=== PATIENT | female | born 1945 | race Caucasian/White ===

== ENCOUNTER → 2017-09-16 11:02 | Outpatient (CLI) | payer MEDICARE, SELFPAY ==
--- NOTE | 2017-09-16 11:13 | MRI_ITS ---
STUDY: MRI BRAIN WITH AND WITHOUT CONTRAST REASON FOR EXAM: Female, 71 years old. meningioma, F/U, NO SYMPTOMS. TECHNIQUE: Standardized multiplanar fat and water weighted pulse sequences were obtained. 7 ml of Gadavist contrast material was administered intravenously for the contrast portion of the examination. COMPARISON: November 04, 2015 FINDINGS: Normal size of the ventricles and extra-axial spaces for the patient's age. There are a limited number of small white matter hyperintensities, distributed throughout the deep white matter tracts of the cerebral hemispheres, consistent with mild chronic white matter ischemic changes. Normal bilateral basal ganglia. Normal thalami. There is no extra-axial fluid accumulation. Normal flow voids within the major intracranial circulation suggesting patency by spin echo criteria. Normal venous enhancement. Again noted is a 1 cm left frontal extra-axial likely meningioma without change since the prior examination. There is no underlying edema Normal sella turcica, pituitary gland, infundibular stalk, optic chiasm and hypothalamus. Normal tectal plate and pineal gland. Normal midbrain, tommie and medulla. Normal cerebellum. Normal basal cisterns. Normal bilateral temporal bones. Normal bilateral internal auditory canals. No demonstrated orbital abnormality, within the constraints of a routine brain study. Normal visualized paranasal sinuses. Normal calvarium and skull base. Normal visualized soft tissue structures. Normal visualized upper cervical spine. MRI/Brain W/WO Contrast IMPRESSION: Stable left frontal meningioma. Electronically Signed: Gabriela Rhodes MD at 10:10 EST Tel , Service support ,
== END ==
PROVIDERS: Family Provider Internal Medicine; PCP Internal Medicine; Visit Provider Internal Medicine
DX: D32.9 Benign neoplasm of meninges, unspecified (principal)
CPT/HCPCS: 70553; A9585

== ENCOUNTER → 2017-09-23 08:17 | Outpatient (CLI) | payer MEDICARE, SELFPAY ==
[2017-09-23 10:03] LABS: ALB/GLOB Ratio 1.2 RATIO (0.9-2.4); AST(SGOT) 14 U/L (15-37); Alanine Aminotransfer ALT/SGPT 26 U/L (13-56); Albumin, Serum 3.9 g/dL (3.2-5.0); Alkaline Phosphatase 55 U/L (45-117); BUN 14 mg/dL (7-18); BUN/Creat Ratio 22.2 RATIO (10-20); Calcium,Total 9.6 mg/dL (8.5-10.1); Chloride 101 mmol/L (98-107); Creatinine, Serum 0.63 mg/dL (0.55-1.02); EST Glomerular Filtration Rate 99 mL/min (>60); Est Glom Filt Rate - Afr Amer 120 mL/min (>60); Globulin 3.3 g/dL (2.2-4.2); Glucose 93 mg/dL (74-106); Magnesium 2.4 mg/dL (1.6-2.6); Potassium 3.8 mmol/L (3.5-5.1); Protein, Total 7.2 g/dL (6.4-8.2); Sodium Level 139 mmol/L (136-145)
[2017-09-23 10:04] LABS: Anion Gap 6 (5-15)
[2017-09-23 10:10] LABS: Vitamin D,25 Hydroxy 46.2 ng/mL (19.95-100.01)
== END ==
PROVIDERS: Family Provider Internal Medicine; PCP Internal Medicine; Visit Provider Internal Medicine Endocrinology, Diabetes & Metabolism
DX: E55.9 Vitamin D deficiency, unspecified (principal); E83.42 Hypomagnesemia; N20.0 Calculus of kidney; M81.0 Age-related osteoporosis without current pathological fracture
CPT/HCPCS: 36415; 80053; 82306; 83735

== ENCOUNTER → 2017-09-26 08:04 | Outpatient (CLI) | payer MEDICARE, SELFPAY ==
[2017-09-26 10:05] LABS: 24HR. Urine Creatinine 0.98 g/24 HR (0.70-1.90)
== END ==
PROVIDERS: Family Provider Internal Medicine; PCP Internal Medicine; Visit Provider Internal Medicine Endocrinology, Diabetes & Metabolism
DX: N20.0 Calculus of kidney (principal); E55.9 Vitamin D deficiency, unspecified
CPT/HCPCS: 82570

== ENCOUNTER → 2017-10-07 08:53 | Outpatient (CLI) | payer MEDICARE, SELFPAY ==
--- NOTE | 2017-10-07 08:54 | HPBI_ITS ---
MAMMOGRAPHY - BILATERAL SCREENING REASON FOR EXAM: Female, 71 years old. Routine annual screening examination. PERTINENT HISTORY: Daughter with breast cancer. Remote bilateral excisional breast biopsies. TECHNIQUE: Digital bilateral breast boyd (3D mammographic acquisition) in the CC and MLO projections. 2-D mediolateral oblique (MLO) and craniocaudad (CC) views of both breasts were obtained. CAD: Full Field Digital Mammography with Computer Added Detection was performed. COMPARISON: Comparison is made with prior study dated August 07, 2016 and October 27, 2014. FINDINGS: Breast Composition: The breasts are heterogeneously dense, which may obscure small masses. There is a 5.3 mm x 6.6 mm well-defined nodule in the upper outer aspect of the left breast. This may represent a small cyst. Correlation with ultrasound is recommended. Stable bilateral benign-appearing axillary lymph nodes. No other significant abnormalities are identified. HPBI/SCREENING MAMM (CAD), BILAT IMPRESSION: Subcentimeter well-defined nodular density in the upper outer aspect of the left breast as described. Correlation with ultrasound is recommended. ASSESSMENT CATEGORY: BIRADS Category 2: Benign. A letter regarding these results will be sent to the patient by the facility within 30 days. Approximately 10% of breast cancers are not detected by mammography. A normal mammogram should not delay biopsy of a clinically suspicious abnormality. [id number] Electronically Signed: Corey Rodriguez MD at 10:32 EST Tel [phone], Service support ,
== END ==
PROVIDERS: Family Provider Internal Medicine; PCP Internal Medicine; Visit Provider Internal Medicine
DX: Z12.31 Encounter for screening mammogram for malignant neoplasm of breast (principal)
CPT/HCPCS: 77063; 77067

== ENCOUNTER → 2017-10-10 10:52 | Outpatient (CLI) | payer MEDICARE, SELFPAY ==
--- NOTE | 2017-10-10 10:59 | US_ITS ---
STUDY: ULTRASOUND BREAST - LEFT REASON FOR EXAM: Female, 71 years old. Abnormal screening mammogram. TECHNIQUE: Axial and longitudinal images of the LEFT breast were performed with a high resolution ultrasound transducer. COMPARISON: Comparison is made with prior mammogram dated October 07, 2017. FINDINGS: LEFT Breast: There is a 5 mm x 3 mm x 3 mm hypoechoic nodule at the 2:00 position breast at 5 cm from nipple. This is not a typical cyst. A biopsy is recommended for further evaluation. US/Breast Limited Unilateral IMPRESSION: 5 mm x 3 mm x 3 mm hypoechoic nodule at the 2:00 region of the breast at 5 cm from the nipple. A biopsy recommended for further evaluation. ASSESSMENT CATEGORY: BIRADS Category 4: Suspicious - Biopsy Should Be Considered. A letter regarding these results will be sent to the patient by the facility within 30 days. Electronically Signed: Corey Rodriguez MD at 13:47 EST Tel [phone], Service support ,
== END ==
PROVIDERS: Family Provider Internal Medicine; PCP Internal Medicine; Visit Provider Internal Medicine
DX: R92.8 Other abnormal and inconclusive findings on diagnostic imaging of breast (principal)
CPT/HCPCS: 76642

== ENCOUNTER 2017-11-18 08:30 | Outpatient (RCR) | payer MEDICARE, SELFPAY ==
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
--- NOTE | 2017-11-18 09:40 | HP.PTDCSUM_ITS ---
HP - PT D/C Summary It has been my pleasure to treat JS MEEKS under orders from Quirino Bueno, , for the diagnosis of L RTC IMPINGEMENT SYNDROME AND PAIN. for a total of 10 visit(s). Discharge Date: Please see the following information for a summary of their discharge status. - Subjective Subjective: NO BREAST CANCER HAS BEEN FOUND AT THIS TIME. PATIENT REPORTS SHE DOES STILL HAVE ACHING IN HER SHOULDER RANGING 0-6 OR 7 /10. SHE REPORTS SHE NOTICES THE PAIN A LOT IN THE MORNINGS. IT STILL GRABS WITH PRETTY SEVERE PAIN UP TO ABOUT 8/10 LIKE SHE DID BEFORE STARTING PT BUT IT DOESN'T GRAB OFTEN. SOMETIMES SHE STILL HEARS IT CLICKING. STATES SHE HAS NOT BEEN NOTICING LEFT FOREARM OR THUMB PAIN. - Pain Left Shoulder Pain Intensity (Out of 10): 0 - Overall Improvement % Improvement: 10 - Objective Objective/Function: NO SIGNIFICANT CHANGES. RECOMMEND PHYSICIAN FOLLOW UP. PATIENT MAY BENEFIT FROM LEFT UE MRI AND R/O OF CERVICAL. UPON EXAM, MMT - LUE: SHOULDER FLEX 3-/5, ABD 2+/5, IR 3-/5, ER 3/5, ELBOW 5/5. MID RANGE SEATED LEFT SHOULDER IR 5/5 AND ER 4-/5. NO INCREASED PAIN WITH MMT OF LEFT UE IN SITTING WITH ELBOW AT SIDE. Sensory deficit: NO. PAULA UE'S INTACT AND SYMMETRICAL INCLUDING LEFT THUMB. ROM deficit: AROM LEFT SHOULDER FLEX IN SITTING 140 DEG, ABD 170 DEG. SUPINE LEFT SHOULDER FLEX 155 DEG PASSIVELY. ABD 100 DEG WITH PAIN DURING MVMT AND AT THE END OF THE AVAILABLE RANGE. ER IN SUPINE WITH 80 DEG ABD IS 85 DEG, IR 60 DEG. Reflexes: 2/3 PAULA UE'S. Cervical Mvmt Loss: Flex: NIL. Pro: NIL. Ext: LEX. Ret: LEX. RSB: MOD. LSB: MOD. R Rot: MOD. L Rot: MOD. PATIENT DENIES LEFT UE INCREASED PAIN WITH CERVICAL ROM ALL PLANES. Postural strength: FAIR - Goals Goal 1:: DECREASE C/O LEFT SHOULDER/UPPER ARM PAIN Goal Progress: Not Progressing Goal 2:: IMPROVE REACHING, LIFTING, HOUSEWORK, YARD WORK, ADL'S (EX: DOING HAIR ), AND RECREATIONAL FUNCTION. Goal Progress: Not Progressing Goal 3:: INSTRUCT IN PROPHYLAXIS/INDEP HEP Goal Progress: Not Progressing - Plan Plan: D/C DUE TO LACK OF ENOUGH PROGRESS. - D/C Information If there are questions or concerns regarding this patient's physical therapy, please feel free to call me at [phone]. Thank you for the referral of this patient. Sincerely, Vesna Albert
== END 2017-11-18 19:00 | disposition home or self-care (01) ==
LOC: PT 08:30
PROVIDERS: Family Provider Internal Medicine; PCP Internal Medicine; Visit Provider Orthopaedic Surgery Hand Surgery
DX: M75.42 Impingement syndrome of left shoulder (principal); M25.512 Pain in left shoulder
CPT/HCPCS: 97110; 97163; 97530

== ENCOUNTER → 2017-11-18 09:10 | Outpatient (CLI) | payer MEDICARE, SELFPAY ==
[2017-11-18 11:14] LABS: ALB/GLOB Ratio 1.1 RATIO (0.9-2.4); AST(SGOT) 15 U/L (15-37); Alanine Aminotransfer ALT/SGPT 29 U/L (13-56); Alkaline Phosphatase 59 U/L (45-117); Anion Gap 6 (5-15); BUN 15 mg/dL (7-18); BUN/Creat Ratio 22.6 RATIO (10-20); Calcium,Total 9.5 mg/dL (8.5-10.1); Chloride 104 mmol/L (98-107); Creatinine, Serum 0.66 mg/dL (0.55-1.02); EST Glomerular Filtration Rate 93 mL/min (>60); Est Glom Filt Rate - Afr Amer 113 mL/min (>60); Globulin 3.7 g/dL (2.2-4.2); Glucose 94 mg/dL (74-106); Potassium 3.7 mmol/L (3.5-5.1); Protein, Total 7.7 g/dL (6.4-8.2); Sodium Level 141 mmol/L (136-145)
[2017-11-18 11:33] LABS: Vitamin D,25 Hydroxy 71.7 ng/mL (29.95-100.01)
[2017-11-18 11:34] LABS: PTHIN 75.3 pg/mL (18.4-80.1)
== END ==
PROVIDERS: Family Provider Internal Medicine; PCP Internal Medicine; Visit Provider Internal Medicine Endocrinology, Diabetes & Metabolism
DX: M81.0 Age-related osteoporosis without current pathological fracture (principal); E55.9 Vitamin D deficiency, unspecified; E21.1 Secondary hyperparathyroidism, not elsewhere classified; E22.1 Hyperprolactinemia; M75.42 Impingement syndrome of left shoulder; M25.512 Pain in left shoulder
CPT/HCPCS: 36415; 80053; 82306; 83970; 97530

== ENCOUNTER → 2018-04-01 16:25 | Outpatient (CLI) | payer MEDICARE, SELFPAY | PROVIDERS: Visit Provider Nurse Practitioner Adult Health | DX: R82.99 Other abnormal findings in urine (principal) | CPT/HCPCS: 87086; 87088 ==

== ENCOUNTER → 2018-04-29 13:07 | Outpatient (CLI) | payer MEDICARE, SELFPAY ==
--- NOTE | 2018-04-29 13:12 | RAD_ITS ---
STUDY: X-RAY - LEFT CALCANEUS REASON FOR EXAM: Female, 72 years old. (Fasciitis. TECHNIQUE: 2 view(s) of the calcaneus were obtained. COMPARISON: None. FINDINGS: There is demineralization of the osseous structures. There is a plantar calcaneal spur. There is no demonstrated acute fracture. There are questionable faint calcifications in the soft tissues on the plantar aspect of the calcaneus. RAD/Calcaneus min 2 Views IMPRESSION: Plantar calcaneal spur. Electronically Signed: Malachi Qureshi MD at 3:42 EDT Tel , Service support ,
== END ==
PROVIDERS: Family Provider Internal Medicine; PCP Internal Medicine; Visit Provider Internal Medicine
DX: M72.2 Plantar fascial fibromatosis (principal)
CPT/HCPCS: 73650

== ENCOUNTER → 2018-05-27 08:01 | Outpatient (CLI) | payer MEDICARE, SELFPAY ==
[2018-05-27 10:56] LABS: PTHIN 78.1 pg/mL (18.4-80.1); Vitamin D,25 Hydroxy 68.3 ng/mL (29.95-100.01)
[2018-05-27 11:11] LABS: ALB/GLOB Ratio 1.1 RATIO (0.9-2.4); AST(SGOT) 21 U/L (15-37); Alanine Aminotransfer ALT/SGPT 50 U/L (13-56); Albumin, Serum 3.9 g/dL (3.2-5.0); Alkaline Phosphatase 65 U/L (45-117); Anion Gap 7 (5-15); BUN 20 mg/dL (7-18); BUN/Creat Ratio 31.3 RATIO (10-20); Calcium,Total 9.6 mg/dL (8.5-10.1); Chloride 104 mmol/L (98-107); Creatinine, Serum 0.64 mg/dL (0.55-1.02); EST Glomerular Filtration Rate 97 mL/min (>60); Est Glom Filt Rate - Afr Amer 118 mL/min (>60); Globulin 3.6 g/dL (2.2-4.2); Glucose 98 mg/dL (74-106); Potassium 4.1 mmol/L (3.5-5.1); Protein, Total 7.5 g/dL (6.4-8.2); Sodium Level 142 mmol/L (136-145)
== END ==
PROVIDERS: Family Provider Internal Medicine; PCP Internal Medicine; Referring Provider Internal Medicine; Visit Provider Internal Medicine
DX: E04.9 Nontoxic goiter, unspecified (principal); E21.1 Secondary hyperparathyroidism, not elsewhere classified; E55.9 Vitamin D deficiency, unspecified; E83.52 Hypercalcemia
CPT/HCPCS: 36415; 80053; 82306; 83970

== ENCOUNTER → 2018-07-02 09:28 | Outpatient (CLI) | payer MEDICARE, SELFPAY ==
[2017-11-19 09:28] VITALS: BMI 27.8
[2018-07-02 12:39] LABS: BUN 17 mg/dL (7-18); Creatinine, Serum 0.63 mg/dL (0.55-1.02); Glucose 104 mg/dL (74-106)
[2018-07-02 12:40] LABS: ALB/GLOB Ratio 1.2 RATIO (0.9-2.4); AST(SGOT) 17 U/L (15-37); Alanine Aminotransfer ALT/SGPT 35 U/L (13-56); Alkaline Phosphatase 56 U/L (45-117); Anion Gap 5 (5-15); BUN/Creat Ratio 26.8 RATIO (10-20); Calcium,Total 9.7 mg/dL (8.5-10.1); Chloride 103 mmol/L (98-107); EST Glomerular Filtration Rate 98 mL/min (>60); Est Glom Filt Rate - Afr Amer 119 mL/min (>60); Globulin 3.3 g/dL (2.2-4.2); Potassium 3.9 mmol/L (3.5-5.1); Protein, Total 7.3 g/dL (6.4-8.2); Sodium Level 138 mmol/L (136-145)
[2018-07-02 12:42] LABS: Vitamin D,25 Hydroxy 58.4 ng/mL (29.95-100.01)
[2018-07-02 12:49] LABS: PTHIN 67.1 pg/mL (18.4-80.1)
== END ==
PROVIDERS: Family Provider Internal Medicine; PCP Internal Medicine; Referring Provider Internal Medicine Endocrinology, Diabetes & Metabolism; Visit Provider Internal Medicine Endocrinology, Diabetes & Metabolism
DX: E55.9 Vitamin D deficiency, unspecified (principal); E04.9 Nontoxic goiter, unspecified; E21.1 Secondary hyperparathyroidism, not elsewhere classified
CPT/HCPCS: 36415; 80053; 82306; 83970

== ENCOUNTER → 2018-07-28 07:04 | Outpatient (CLI) | payer MEDICARE, SELFPAY ==
[2017-11-19 09:28] VITALS: BMI 27.8
[2018-07-28 07:48] LABS: Anion Gap 6 (5-15); BUN 17 mg/dL (7-18); BUN/Creat Ratio 24.8 RATIO (10-20); Calcium,Total 9.5 mg/dL (8.5-10.1); Chloride 105 mmol/L (98-107); Creatinine, Serum 0.68 mg/dL (0.55-1.02); EST Glomerular Filtration Rate 90 mL/min (>60); Est Glom Filt Rate - Afr Amer 109 mL/min (>60); Glucose 103 mg/dL (74-106); Potassium 3.7 mmol/L (3.5-5.1); Sodium Level 142 mmol/L (136-145)
--- OUTSIDE RECORDS SUMMARY | 2018-10-29 16:47 | XMS RPT_ITS ---
:1945 Author Organization [employer] Address [address] [place] [address] Phone Care Team Providers Name Role Phone Ximena METZ, Quirino Juarez Unavailable Reason for Visit Reason For Visit Description Start Date Follow-up by complaint Preliminary reason for visit data, not yet signed by the author as of left shoulder pain Preliminary reason for visit data, not yet signed by the author as of Chief Complaint Chief Complaint Description Start Date left shoulder pain Preliminary chief complaint data, not yet signed by the author as of Instructions No information available. Plan of Care Type Date Detail Appointment 09:00 AM Quirino Bueno MD, [address] [facility], [place], [address], Pending order MRI left shoulder without contrast Medications Medication Instructions Start Stop Generic Name NDC Provider Date Date COQ10 100 MG 1 capsule daily / COENZYME Q10 16811641312 Marielos CAPS 27 Rothman SHORTHAND TEACHER METHENAMINE 1 tablet daily / METHENAMINE [id number] Marielos MANDELATE 0.5 27 MANDELATE Rothman [employer]TH[employer] TE[employer] GM TABS CITRACAL 1 tablet daily / CALCIUM-PHOSPHORUS 82431170647 Marielos CALCIUM 27 -VITAMIN D Rothman [employer]ORTHAND TEACHER GUMMIES 250-115-250 MG-MG-UNIT CHEW SYMBICORT 2 puffs twice / BUDESONIDE-FORMOTE 87095306347 Marielos 160-4.5 daily 27 ROL FUMARATE Rothman [employer]ORTHAND TEACHER MCG/ACT AERO BRIAN-C TABS 1 tablet daily / BIOFLAVONOID [id number] Marielos (1000mg) 27 PRODUCTS Rothman [employer]ORTHAND TEACHER FISH OIL 1200 1 capsule daily / OMEGA-3 FATTY 10275012887 Marielos MG CAPS 27 ACIDS Rothman [employer]ORTHAND TEACHER DAILY DEFENSE 1 tablet daily / DAILY DEFENSE Marielos 27 Rothman [employer]ORTHAND TE[employer]ER INDAPAMIDE 1 tablet daily / INDAPAMIDE 58795935931 Marielos 1.25 MG TABS 27 Rothman SHORTHAND TEACHER HM VITAMIN D3 1 capsule daily / CHOLECALCIFEROL 22969705809 Marielos 4000 UNIT CAPS 27 Rothman SHORTHAND TEACHER B-12 500 MCG 1 tablet daily / CYANOCOBALAMIN 14686130431 Marielos TABS 20 Rothman [employer]ORTHAND TEACHER LIPITOR 10 MG 1 tablet 5 days / ATORVASTATIN 03555310567 Marielos TABS per week 20 CALCIUM Rothman [employer]ORTHAND TEACHER MAGNESIUM 500 1 tablet daily / MAGNESIUM 53896185834 Marielos MG TABS 27 Rothman SHORTHAND TEACHER OMEPRAZOLE 40 1 capsule daily / Jalil L MG CPDR 20 Carter METZ (OMEPRAZOLE) TURMERIC 1 capsule daily / TURMERIC 57156295051 Sean CURCUMIN 500 11 Rose MG CAPS FOLIC ACID 800 1 tablet per / FOLIC ACID 28099273901 Sean MCG TABS day 11 Rose TOPROL XL 50 1 tablet daily / METOPROLOL 18849199299 Sean MG [id number] 11 SUCCINATE Rose Conditions or Problems Problem Name Problem Onset Status Entry Provider Comment Standard Annotate Code Date Date Description Rotator cuff 465202327 Active Quirino Z Rotator cuff impingement (SNOMED CT) 10/14 Stadonnie impingement syndrome of MD syndrome left shoulder Left shoulder 10696454 Active Quirino Z Shoulder pain (SNOMED CT) 10/14 Ximena pain Allergies, Adverse Reactions, Alerts Allergy Name Reaction Start Date Severity Status Provider Description SULFA severe headache Critical Active Marielos Rothman [employer]THAND TEACHER CAFFEINE intolerance Critical Active Marielos Rothman [employer]THAND TE[employer]ER SUGAR intolerance Critical Active Marielos Rothman [employer]TH[employer] TE[employer]ER GLUTEN intolerance Critical Active Marielos Rothman [employer]TH[employer] TE[employer]ER MINOCIN depth perception Critical Active Sean Rose issues Social History No information available. Vital Signs Date Name Value Unit Description BMI (Body Mass 28.03 kg/m2 Body Mass Index Index) [Ratio] Preliminary vital sign data, not yet signed by the author as of BP Diastolic 71 mm[Hg] blood pressure, diastolic Preliminary vital sign data, not yet signed by the author as of BP Systolic 123 mm[Hg] blood pressure, systolic Preliminary vital sign data, not yet signed by the author as of Heart Rate 65 /min pulse rate E&M Preliminary vital sign data, not yet signed by the author as of Height 60 [in_us] height E&M Preliminary vital sign data, not yet signed by the author as of Height 152 cm height in centimeters E&M Preliminary vital sign data, not yet signed by the author as of Weight Measured 143 [lb_av] weight E&M Preliminary vital sign data, not yet signed by the author as of Weight Measured 65 kg weight in kilograms E&M Preliminary vital sign data, not yet signed by the author as of Results Date Name Value Unit Range Flag Description Office Visit: Follow-up by johnathan, Rm: MEDS REVIEW Done Documentation of current medications (procedure) Preliminary observation data, not yet signed by the author as of Preliminary observation data, not yet signed by the author as of Clinical Summary: HMSPatientID SOP account number Procedures Code Procedure Name Date Entry Date G8730 Pain assessment documented as positive - follow-up documented G8427 Current medications documented 1036F Tobacco screening was negative - non user G8419 BMI outside of normal parameters - no follow-up plan/reason not given G8783 Blood pressure within normal parameters - no follow-up required [id number] Patient Encounter Medications Administered No information available. Immunizations No information available. Advance Directives There may be information available, but it has not been provided by the sender. Assessments There may be information available, but it has not been provided by the sender. Review of Systems There may be information available, but it has not been provided by the sender. Family History There may be information available, but it has not been provided by the sender. History of Past Illness There may be information available, but it has not been provided by the sender. History of Present Illness There may be information available, but it has not been provided by the sender.
--- OUTSIDE RECORDS SUMMARY | 2018-10-29 16:49 | XMS RPT_ITS | Continuity of Care Document ---
:1945 Author Organization [facility] Address [facility] [facility] [address] [place] [address] Phone Care Team Providers Name Role Phone Gurdeep Law DOcamilo Rogers Unavailable Dr. Brett Mata MD Unavailable Dr. Doug Mcqueen Unavailable Dr. Gee Belcher DO Unavailable Dr. Wen Vides Unavailable Carli Bautista Unavailable Unavailable Noamie Dalton Unavailable Unavailable Juliana Shook Unavailable Unavailable Unavailable Unavailable Problems Name Dates Details Abnormal blood chemistry (R79.9, 790.6) Status: Active Abnormal glucose tolerance test (R73.02, 790.22) Comments: chronic stable-continue present regimen Status: Active Abnormal mammogram (R92.8, 793.80) Status: Active Abnormal pulmonary function test (R94.2, 794.2) Status: Active Acute sinusitis (J01.90, 461.9) Status: Active Asthma with acute exacerbation (J45.901, 493.92) Status: Active Bilateral edema of lower extremity (R60.0, 782.3) Status: Active BMI 26.0-26.9,adult (Z68.26, V85.22) Status: Active BMI 27.0-27.9,adult (Z68.27, V85.23) Status: Active 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, 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 Compression fracture of thoracic vertebra (S22.000A, 805.2) Status: Active Cough (R05, 786.2) Status: Active Current nonsmoker (Renamed from Current non-smoker) (Z78.9, V49.89) Status: Active Deliveries (Parity) Comments: Term, 3 Status: Active Encounter for screening mammogram for breast cancer (Renamed from Encounter for screening mammogram for malignant neoplasm of breast) (Z12.31, V76.12) Status: Active Gastroesophageal reflux disease without esophagitis (K21.9, 530.81) Comments: doing well with meds Status: Active Hypercalcemia (E83.52, 275.42) Status: Active Hypercalcemia (E83.52, 275.42) Comments: stop citacal gummies and make sure getting water Status: Active [facility] WELLNESS EXAM Status: Active Meningioma (D32.9, 225.2) Status: Active 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 (J45.40, 493.10) Status: Active Need for prophylactic vaccination and inoculation against influenza (Renamed from Need for immunization against influenza) (Z23, V04.81) Status: Active Nonsmoker (Z78.9, V49.89) Status: Active Osteopenia (M85.80, 733.90) Status: Active Osteoporosis (Renamed from OP (osteoporosis)) (M81.0, 733.00) Status: Active Other and unspecified hyperlipidemia (E78.5, 272.4) Comments: chol up - we discussed diet and ex in detail Status: Active Other hyperlipidemia (E78.49, 272.4) Comments: chronic stable-continue present regimen Status: Active Peptic ulcer disease (K27.9, 533.90) Status: Active Plantar fasciitis, left (M72.2, 728.71) Status: Active Poison akshat (L23.7, 692.6) Status: Active Positional vertigo (H81.10, 386.11) Comments: stillhas intermittent but better Status: Active Postmenopausal (Renamed from Postmenopausal status) (Z78.0, V49.81) Comments: without estrogen and osteoporosis - send copy to Dr Belcher Status: Active Pregnancies () Comments: 3 Status: Active Recurrent UTI (N39.0, 599.0) Status: Active Recurrent UTI (N39.0, 599.0) Status: Active Shortness of breath on exertion (R06.02, 786.05) Status: Active Shoulder Pain (M25.519, 719.41) Status: Active Spondylosis, lumbosacral (721.3) Status: Active Unequal pupils (379.41) Status: Active Vitamin B12 deficiency (dietary) anemia (D51.8, 281.1) Status: Active Vitamin D deficiency, unspecified (E55.9, 268.9) Status: Active Medications Name Dates Details Albuterol Sulfate (2.5 MG/3ML) 0.083% Inhalation Nebulization Solution 1 (one) Nebulized Soln q 6 hours prn for 0 days Quantity: 1 {Box} Refills: 0 Ordered:16-Jan-2018 Minoo Austin DO Start : 16-Jan-2018 Active Augmentin 875-125 MG Oral Tablet 1 (one) Tablet bid for 14 days Quantity: 28 {Tablet} Refills: 0 Ordered:06-Jun-2018Audrey DO Audrey A Start : 06-Jun-2018 Active CoQ10 10 MG Oral Capsule qd (10 MG) Active FOLIC ACID, 800MCG (Oral Tablet) 1 tab qd for 0 days Refills: 0 Ordered:17-Aug-2011 Kenny Shook INDAPAMIDE, 1.25MG (Oral Tablet) 1/2 tab daily (1.25 MG) Active Lasix 20 MG Oral Tablet 1 (one) Tablet Tablet qd as needed for 0 days Quantity: 30 {Tablet} Refills: 0 Ordered:28-Nov-2016 Naomie Dalton Start : 28-Nov-2016 Active Comments:Medication taken as needed. Lipitor 10 MG Oral Tablet 1 (one) Tablet qd for 10 days Quantity: 10 {Tablet} Refills: 0 Ordered:07-Feb-2018 DOGurdeepa Velvet CASTRO Audrey A Start : 07-Feb-2018 Active Lipitor 10 MG Oral Tablet 1 (one) Tablet qd for 90 days Quantity: 90 {Tablet} Refills: 3 Ordered:07-Feb-2018 DOGurdeepa AFrosmery DO Audrey A Start : 07-Feb-2018 Active MAGNESIUM, 500MG (Oral Tablet) 1 tab daily (500 MG) Active METHENAMINE MANDELATE, 0.5GM (Oral Tablet) 1 tab q hs (0.5 GM) Active Omeprazole 40 MG Oral Capsule Delayed Release 1 (one) Capsule DR daily for 90 days Quantity: 90 {Capsule} Refills: 3 Ordered:25-Jun-2017 Thanh CASTRO, Audrey Verdin DO, Audrey A Start : 25-Jun-2017 Active PredniSONE 10 MG Oral Tablet 3 (three) Tablet x3days, 2 [id number], 1 ucjr6yaet for 0 days Quantity: 18 {Tablet} Refills: 0 Ordered:06-Jun-2018 Thanh CASTRO, Audrey POLLARDast DO, Audrey A Start : 06-Jun-2018 Active Comments:take with food Symbicort 160-4.5 MCG/ACT Inhalation Aerosol 2 (two) Puff puffs bid for 90 days Refills: 3 Ordered:29-Apr-2018 , Audrey POLLARDast DO, Audrey A Start : 29-Apr-2018 Active Symbicort 160-4.5 MCG/ACT Inhalation Aerosol 2 (two) Puff puffs bid for 0 days Quantity: 3 {Inhalation} Refills: 0 Ordered:29-Apr-2018 , Audrey ATULast DO, Audrey A Start : 29-Apr-2018 Active TOPROL XL, 50MG (Oral Tablet Extended Release 24 Hour) 1 Tablet ER 24HR QD for 90 days Quantity: 90 {Tablet_ER_24HR} Refills: 3 Ordered:24-Jan-2015 , Audrey AFast DO, Audrey A Start : 24-Jan-2015 Active Comments:dispense as written TOPROL XL, 50MG (Oral Tablet Extended Release 24 Hour) 1 Tablet ER 24HR QD for 0 days Quantity: 90 {Tablet_ER_24HR} Refills: 3 Ordered:24-Jan-2015 DO, Audrey AFast DO, Audrey A Start : 24-Jan-2015 Active Comments:[place] VITAMIN C ER, 1000MG (Oral Tablet Extended Release) 1 daily (1000 MG) Active VITAMIN D3, 2000UNIT (Oral Tablet) 2 caps qd (2000 UNIT) Active ALIGN, 4MG (Oral Capsule) 1 Capsule daily for 10 days Quantity: 10 {Capsule} Refills: 0 Ordered:03-Jul-2011 Ashley Gan CNP Start : 22-Jun-2011 End : 02-Jul-2011 Inactive AMOXICILLIN, 500MG (Oral Capsule) 1 Capsule tid for 7 days Quantity: 21 {Capsule} Refills: 0 Ordered:22-Jun-2011 Ashley Gan CNP Start : 22-Jun-2011 End : 29-Jun-2011 Inactive BD SYRINGE/NEEDLE, 25G X 5/81 ML (Miscellaneous) 1 Misc uad for B12 injections for 0 days Quantity: 1 {box(s)} Refills: 3 Ordered:29-Jul-2014 Mitesh CATHY Start : 20-Nov-2012 End : 29-Jul-2014 Inactive BIAXIN XL PAC, 500MG (Oral Tablet Extended Release 24 Hour) 2 (two) Tablet ER 24HR daily for 14 days Quantity: 28 {Tablet_ER_24HR} Refills: 0 Ordered:27-Jul-2008 Ashley Gan CNP Start : 27-Jul-2008 End : 07-Sep-2008 Inactive CEFDINIR, 300MG (Oral Capsule) 1 Capsule bid for 10 days Quantity: 20 {Capsule} Refills: 0 Ordered:01-Jan-2014 Fast DO, Audrey AFast DO, Audrey A Start : 01-Jan-2014 End : 11-Jan-2014 Inactive Cephalexin 500 MG Oral Capsule 1 (one) Capsule Capsule bid for 7 days Quantity: 14 {Capsule} Refills: 0 Ordered:13-Apr-2016 Jim Ferrer Start : 13-Apr-2016 End : 20-Apr-2016 Inactive Cheratussin AC 100-10 MG/5ML Oral Syrup 10ml Syrup q 8 hours prn for 0 days Quantity: 250 {Milliliter} Refills: 0 Ordered:29-Aug-2016 Naomie Dalton Start : 20-Aug-2016 End : 29-Aug-2016 Inactive Comments:two hundred fifty Cipro 500 MG Oral Tablet 1 (one) Tablet bid for 10 days Quantity: 20 {Tablet} Refills: 3 Ordered:06-Jun-2018 Naomie Dalton Start : 29-Apr-2018 End : 06-Jun-2018 Inactive CIPRO, 250MG (Oral Tablet) 1 Tablet bid prn for 0 days Quantity: 28 {Tablet} Refills: 2 Ordered:11-May-2011 Virginie Ambriz LPN Start : 17-May-2010 End : 11-May-2011 Inactive CULTURELLE, 10B CELL (Oral Capsule) 1 Capsule bid for 0 days Quantity: 30 {Capsule} Refills: 0 Ordered:20-Feb-2013 Virginie Ambriz LPN Start : 15-Sep-2012 End : 20-Feb-2013 Inactive CYANOCOBALAMIN, 1000MCG/ML (Injection Solution) 1 ml sq Solution once monthly for 90 days Quantity: 1 {Solution} Refills: 3 Ordered:29-Jul-2014 CATHY Sagastume Start : 03-Jul-2011 End : 29-Jul-2014 Inactive CYCLOBENZAPRINE HCL, 10MG (Oral Tablet) 1 (one) Tablet Tablet tid prn for 0 days Quantity: 60 {Tablet} Refills: 0 Ordered:29-Jul-2014 CATHY Sagastume Start : 29-Dec-2013 End : 29-Jul-2014 Inactive Dulera 200-5 MCG/ACT Inhalation Aerosol 2 (two) Aerosol Aerosol puffs bid for 0 days Quantity: 3 {Inhaler} Refills: 0 Ordered:19-Apr-2017 Naomie Dalton Start : 24-Jul-2016 End : 19-Apr-2017 Inactive DYAZIDE, 37.5-25MG (Oral Capsule) 1 (one) Capsule qd prn for 0 days Quantity: 30 {Capsule} Refills: 0 Ordered:29-Jul-2014 CATHY Sagastume Start : 21-Jun-2014 End : 29-Jul-2014 Inactive Comments:use sparingly ERGOCALCIFEROL, 02914ZJDH (Oral Capsule) 1 (one) Capsule q week for 0 days Quantity: 12 {Capsule} Refills: 3 Ordered:11-May-2011 Virginie Ambriz LPN Start : 19-May-2009 End : 11-May-2011 Inactive FOLIC ACID, 800MCG (Oral Tablet) 1 QD for 0 days Refills: 0 Ordered:27-Jul-2008 Luana Granado End : 16-Aug-2006 Inactive IBUPROFEN, 600MG (Oral Tablet) 1 Tablet tid for 0 days Quantity: 60 {Tablet} Refills: 0 Ordered:29-Jul-2014 CATHY Sagastume Start : 30-Jan-2013 End : 29-Jul-2014 Inactive KETOROLAC TROMETHAMINE, 10MG (Oral Tablet) 1 (one) Tablet q 8hrs, prn for 5 days Quantity: 15 {Tablet} Refills: 0 Ordered:11-Jan-2012 Juliana Shook Start : 11-Jan-2012 End : 16-Jan-2012 Inactive Comments:FIFTEEN MACROBID, 100MG (Oral Capsule) 1 (one) Capsule bid for 10 days Quantity: 20 {Capsule} Refills: 0 Ordered:27-May-2015 Fast DO, Audrey AFast DO, Audrey A Start : 27-May-2015 End : 06-Jun-2015 Inactive MULTIVITAMIN (Oral Liquid) Tablet(s) for 0 days Refills: 0 Ordered:29-Jul-2014 CATHY Sagastume End : 29-Jul-2014 Inactive NASONEX, 50MCG/ACT (Nasal Suspension) 2 (two) Suspension qd for 0 days Quantity: 1 {Suspension} Refills: 0 Ordered:20-Feb-2013 Virginie Ambriz LPN Start : 07-Oct-2012 End : 20-Feb-2013 Inactive NITROFURANTOIN MACROCRYSTAL, 100MG (Oral Capsule) 1 (one) Capsule bid for 7 days Quantity: 14 {Capsule} Refills: 0 Ordered:25-Sep-2013 Malik RAMIREZ Adelaida Start : 25-Sep-2013 End : 02-Oct-2013 Inactive OMEGA 3, 550MG (Oral Capsule) 1 QD for 0 days Refills: 0 Ordered:27-Jul-2008 Luana Granado End : 16-Aug-2006 Inactive OSCAL 500/200 D-3, 170-260VF-YQPK (Oral Tablet) 1 QD for 0 days Refills: 0 Ordered:27-Jul-2008 Luana Granado End : 16-Aug-2006 Inactive RDTGE-OR-HCOD MAXIMUM STRENGTH, 400-500MG (PO Tab) 1 QD for 0 days Refills: 0 Ordered:27-Jul-2008 Luana Granado End : 16-Aug-2006 Inactive PredniSONE 10 MG Oral Tablet 3 (three) Tablet pills for 10 days with food in am for 0 days Quantity: 30 {Tablet} Refills: 0 Ordered:19-Apr-2017 Naomie Dalton Start : 08-Apr-2017 End : 19-Apr-2017 Inactive PredniSONE 20 MG Oral Tablet 1 (one) Tablet uad for 15 days Refills: 0 Ordered:16-Jan-2018 Minoo Austin DO Start : 16-Jan-2018 End : 31-Jan-2018 Inactive Comments:2 a d for 5 d, 1 a d for 5d, 1/2 a d for 5 d PRILOSEC OTC, 20MG (Oral Tablet Delayed Release) 1 Daily (20 MG) Inactive ProAir HFA 108 (90 Base) MCG/ACT Inhalation Aerosol Solution 2 (two) Aerosol Soln Aerosol Soln q6 hours prn for cough for 0 days Quantity: 1 {Inhaler} Refills: 3 Ordered:29-Aug-2016 Naomie Dalton Start : 20-Aug-2016 End : 29-Aug-2016 Inactive SINGULAIR, 10MG (Oral Tablet) 1 Tablet QD for 0 days Quantity: 30 {Tablet} Refills: 3 Ordered:22-Mar-2010 Geovanna Call Start : 07-Sep-2008 Inactive SYRINGE DISPOSABLE, 3 ML (Miscellaneous) uad Misc once monthly for 90 days Quantity: 12 {Misc} Refills: 1 Ordered:20-Nov-2012 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, Marielos L Start : 17-May-2010 End : 20-Nov-2012 Inactive Tamiflu 75 MG Oral Capsule 1 (one) Capsule bid for 0 days Quantity: 10 {Capsule} Refills: 0 Ordered:29-Aug-2016 Naomie Dalton Start : 20-Aug-2016 End : 29-Aug-2016 Inactive Tumeric 1 cap daily Inactive Tylenol 325 MG Oral Tablet 1-2 Tablet Tablet q8hrs prn for 0 days Quantity: 30 {Tablet} Refills: 0 Ordered:19-Apr-2017 Naomie Dalton Start : 18-Oct-2014 End : 19-Apr-2017 Inactive Urocit-K 10 10 MEQ (1080 MG) Oral Tablet Extended Release 1 tab Tablet ER qd-bid depending on stomach for 90 days Quantity: 180 {Tablet_ER} Refills: 3 Ordered:29-Apr-2018 Naomie Dalton Start : 24-Jan-2015 End : 29-Apr-2018 Inactive VITAMIN B-12, 1000MCG (Oral Tablet) 1 tab qd (1000 MCG) Inactive ZITHROMAX Z-ANDREE, 250MG (Oral Tablet) 1 (one) Tablet uad for 0 days Quantity: 1 {Packet} Refills: 0 Ordered:05-Oct-2015 Naomie Dalton Start : 29-Aug-2015 End : 05-Oct-2015 Inactive ACIPHEX, 20MG (Oral Tablet Delayed Release) [address] qd for 30 days Quantity: 90 {Tablet_DR} Refills: 3 Ordered:18-Dec-2011 Juliana Shook Start : 18-Dec-2011 End : 18-Dec-2011 Discontinued Comments:nexium ineffective- and prilosec ineffective- dispense as written ASPIRIN LOW DOSE, 81MG (Oral Tablet) 1 tab daily (81 MG) End : 28-Nov-2016 Discontinued ATELVIA, 35MG (Oral Tablet Delayed Release) [address] q week for 90 days Quantity: 12 {Tablet_DR} Refills: 3 Ordered:21-Sep-2013 Juliana Shook Start : 06-Mar-2013 End : 21-Sep-2013 Discontinued BONIVA, 150MG (Oral Tablet) 1 (one) Tablet Tablet once a month for 90 days Quantity: 3 {Tablet} Refills: 3 Ordered:15-Feb-2014 Juliana Shook Start : 21-Sep-2013 End : 15-Feb-2014 Discontinued CALCIUM, 956-940BH-YIIR (Oral Tablet) 1 Daily for 0 days Refills: 0 Ordered:15-Feb-2014 Juliana Shook End : 15-Feb-2014 Discontinued CALTRATE 600+D PLUS, 492-400SO-BGHM (Oral Tablet) 1 1/2 tab qd (600-400 MG-UNIT) End : 15-Feb-2014 Discontinued CIPRO XR, 500MG (Oral Tablet Extended Release 24 Hour) 1 (one) Tablet ER 24HR qd prn for 0 days Quantity: 30 {Tablet_ER_24HR} Refills: 0 Ordered:17-May-2010 Virginie Ambriz LPN Start : 19-May-2009 End : 11-May-2011 Discontinued Comments:This order discontinued per [facility]. CYSTEX (Oral Liquid) 1 (one) Liquid Liquid daily for 0 days Quantity: 6 {Ounce} Refills: 0 Ordered:13-Dec-2014 Juliana Shook Start : 23-Nov-2014 End : 13-Dec-2014 Discontinued DRISDOL, 56579LDPH (Oral Capsule) 1 Capsule Weekly for 90 days Quantity: 12 {Capsule} Refills: 1 Ordered:15-Feb-2014 Juliana Shook Start : 29-May-2013 End : 15-Feb-2014 Discontinued DULERA, 100-5MCG/ACT (Inhalation Aerosol) 1 (one) Aerosol Aerosol bid for 0 days Quantity: 1 {Each} Refills: 1 Ordered:19-Apr-2015 Mojgan Platt LPN Start : 02-Dec-2014 End : 19-Apr-2015 Discontinued ETODOLAC ER, 400MG (Oral Tablet Extended Release 24 Hour) 2 (two) Tablet ER 24HR qd with food for 0 days Quantity: 30 {Tablet_ER_24HR} Refills: 0 Ordered:27-May-2012 Fast DO, Audrey AFast DO, Audrey A Start : 27-May-2012 End : 27-May-2012 Discontinued EVISTA, 60MG (Oral Tablet) 1 Tablet QD for 90 days Quantity: 90 {Tablet} Refills: 3 Ordered:18-Dec-2011 Julaina Shook Start : 18-Dec-2011 End : 18-Dec-2011 Discontinued FLECTOR, 1.3% (Transdermal Patch) 1 (one) Patch q12hrs for 0 days Quantity: 5 {Patch} Refills: 0 Ordered:12-Dec-2010 Juliana Shook Start : 12-Dec-2010 End : 12-Dec-2010 Discontinued FLONASE, 50MCG/ACT (Nasal Suspension) 1 (one) Suspension Suspension 2 sprays each nostril daily for 0 days Quantity: 1 {Each} Refills: 0 Ordered:19-Apr-2015 Mojgan Platt LPN Start : 29-Jul-2014 End : 19-Apr-2015 Discontinued FORTEO, 750MCG/3ML (Subcutaneous Solution) 1 QD for 0 days Refills: 0 Ordered:27-Jul-2008 Luana Granado End : 15-Sep-2007 Discontinued GUAIATUSSIN AC, 100-10MG/5ML (Oral Syrup) 1 Syrup 1 tsp q hs for 0 days Quantity: 6 {Ounce(s)} Refills: 0 Ordered:14-Jan-2008 Luana Granado Start : 14-Jan-2008 End : 29-Jun-2008 Discontinued LEVAQUIN, 500MG (Oral Tablet) 1 (one) Tablet qd for 0 days Quantity: 10 {Tablet} Refills: 0 Ordered:13-Dec-2014 Juliana Shook Start : 02-Dec-2014 End : 13-Dec-2014 Discontinued MECLIZINE HCL, 12.5MG (Oral Tablet) 1 (one) Tablet Tablet 1-2 q 6 hours prn for 0 days Quantity: 60 {Tablet} Refills: 0 Ordered:19-Apr-2015 SlaMojgan allen LPN Start : 01-Feb-2015 End : 19-Apr-2015 Discontinued Comments:sixty METAXALONE, 800MG (Oral Tablet) 1 Tablet tid prn for 0 days Quantity: 30 {Tablet} Refills: 0 Ordered:27-May-2012 DOGurdeepa Velvet Gurdeepa A Start : 27-May-2012 End : 27-May-2012 Discontinued NEURONTIN, 300MG (Oral Capsule) 1 Capsule tid for 0 days Quantity: 90 {Capsule} Refills: 0 Ordered:06-Mar-2013 Audrey ATULrosmery Audrey A Start : 06-Mar-2013 End : 06-Mar-2013 Discontinued NEXIUM, 40MG (Oral Capsule Delayed Release) [address] qd for 30 days Quantity: 30 {Capsule_DR} Refills: 3 Ordered:12-Dec-2010 Gurdeepcamilo POLLARDrosmery Audrey A Start : 12-Dec-2010 End : 12-Dec-2010 Discontinued OCUFLOX, 0.3% (Ophthalmic Solution) 1-2 Metric Drop Metric Drop q2-4hx 2 days then 1-2 drops qid x 5 days for 0 days Quantity: 1 {Bottle} Refills: 0 Ordered:13-Dec-2014 Juliana Shook Start : 18-Oct-2014 End : 13-Dec-2014 Discontinued POTASSIUM CITRATE, 10MEQ (PO Tablet) 1 tab bid for 0 days Refills: 0 Ordered:02-Feb-2009 Esther Rosen RN End : 18-Apr-2010 Discontinued Comments:This order discontinued per [facility]. PredniSONE 10 MG Oral Tablet 3 (three) Tablet Tablet pills for 4 days 2 pills for 4 days 1 pill for 4 day for 0 days Quantity: 24 {Tablet} Refills: 0 Ordered:08-May-2016 Juliana Shook Start : 05-Oct-2015 End : 08-May-2016 Discontinued Comments:take with food in am PROBIOTIC (Oral Capsule) 1 (one) Capsule Capsule qd 2 hours after atb once daily for 0 days Quantity: 10 {Capsule} Refills: 0 Ordered:21-Jun-2014 Juliana Shook Start : 01-Jan-2014 End : 21-Jun-2014 Discontinued PROVENTIL HFA, 108 (90 Base)MCG/ACT (Inhalation Aerosol Solution) for 0 days Refills: 0 Ordered:14-Jan-2008 Luana Granado Start : 14-Jan-2008 End : 29-Jun-2008 Discontinued TOPICORT LP, 0.05% (External Cream) apply Cream bid for 0 days Quantity: 60 {Gram(s)} Refills: 0 Ordered:05-Feb-2008 Luana Granado Start : 05-Feb-2008 End : 29-Jun-2008 Discontinued TOPICORT, 0.05% (External Gel) (0.05 %) End : 29-Jun-2008 Discontinued VITAMIN B6, 250MG (Oral Tablet) 1 tab qd (250 MG) End : 29-Dec-2013 Discontinued VITAMIN D, 23703LAGR (Oral Capsule) 1 (one) Capsule twice a week for 0 days Quantity: 24 {Capsule} Refills: 1 Ordered:18-Apr-2010 Mast Esther MONTANO Start : 07-Feb-2010 End : 18-Apr-2010 Discontinued Comments:This order discontinued per [facility]. ZOSTAVAX, 18602YYW/0.65ML (Subcutaneous Solution Reconstituted) uad For Solution one time dose SQ for 0 days Quantity: 1 {For_Solution} Refills: 0 Ordered:20-Aug-2013 Fast DO, Audrey AFast DO, Audrey A Start : 20-Aug-2013 End : 20-Aug-2013 Discontinued Allergies and Adverse Reactions Name Dates Details Caffiene (Allergy) Status: Active Minocin *TETRACYCLINES* (Allergy) Status: Active Sulfa Drugs (Allergy) Status: Active Comments: Headache Tetracyclines (Allergy) Status: Active Comments: MEDICAL OFFICE ASST effects Past Medical History Name Dates Details Abdominal pain, acute, generalized (R10.84, 789.07) 03-Jul-2011 Status: Resolved as of 04-Nov-2012 Acute sinusitis, unspecified (J01.90, 461.9) Status: Inactive as of 29-Jul-2014 Annual physical exam (Z00.00, V70.0) Status: Inactive as of 29-Jul-2014 Bladder stone (594.1) Status: Inactive as of 10-Sep-2017 BMI 26.0-26.9,adult (Z68.26, V85.22) Status: Inactive as of 19-Apr-2017 BMI 28.0-28.9,adult (Z68.28, V85.24) Status: Inactive as of 20-Dec-2017 Body aches (R52, 780.96) Status: Resolved as of 13-Dec-2014 BRONCHITIS, NOT SPECIFIED ACUTE OR CHRONIC (490.) (J40, 490) Status: Resolved as of 24-Jan-2015 Carpal tunnel syndrome of left wrist (G56.02, 354.0) Status: Resolved as of 08-May-2016 Cerumen impaction (H61.20, 380.4) Status: Resolved as of 09-Nov-2009 Chest pain at rest (R07.9, 786.50) Status: Resolved as of 24-Jan-2015 Cough (R05, 786.2) Status: Resolved as of 24-Jan-2015 Cough (R05, 786.2) Comments: as above Status: Resolved as of 28-Nov-2016 Cough, persistent (R05, 786.2) Status: Resolved as of 28-Nov-2016 cspine fracture- s/p halo removal- doing well Status: Resolved as of 09-Nov-2009 Cystitis, acute (N30.00, 595.0) Status: Resolved as of 06-Mar-2013 Diarrhea (R19.7, 787.91) Comments: she doesnt feel needs check for cdiff- she is taking probiotic and feels ok Status: Resolved as of 04-Nov-2012 Dizziness (R42, 780.4) Status: Inactive as of 29-Jul-2014 Dysuria (R30.0, 788.1) 12-Dec-2010 Status: Inactive as of 29-Jul-2014 Dysuria (Renamed from Difficult or painful urination) (R30.0, 788.1) Status: Resolved as of 24-Jan-2015 Dysuria (Renamed from Difficult or painful urination) (R30.0, 788.1) Status: Resolved as of 28-Nov-2016 Encounter for immunization (Z23, V03.89) Status: Inactive as of 29-Jul-2014 Encounter for screening for malignant neoplasm of cervix (Z12.4, V76.2) Status: Resolved as of 20-Aug-2013 Encounter for screening mammogram for breast cancer (Renamed from Encounter for screening mammogram for malignant neoplasm of breast) (Z12.31, V76.12) Status: Inactive as of 28-Nov-2016 Eustachian tube dysfunction (H69.80, 381.81) Status: Resolved as of 04-Nov-2012 Family hx-breast malignancy (Z80.3, V16.3) Comments: Daughter has breast cancer, was Brac Neg, spoke with Dr. Sylvester (daughters Doctor) at this time, will treat mastitis if not resolved will refer to [facility] per her suggestion and Pt's request.Mammogram done normal Status: Inactive as of 29-Jul-2014 Fatigue (R53.83, 780.79) Status: Inactive as of 28-Nov-2016 Fluid retention (R60.9, 276.69) Status: Inactive as of 29-Jul-2014 Ganglion (M67.40, 727.43) Comments: she will call with name of ortho she wants to see Status: Inactive as of 10-Sep-2017 Hematuria (R31.9, 599.70) Status: Resolved as of 28-Nov-2016 infected sebacous cyst Status: Resolved as of 09-Nov-2009 Infection (B99.9, 136.9) Status: Resolved as of 28-Nov-2016 Influenza A (J10.1, 487.1) Status: Resolved as of 28-Nov-2016 Laceration of left wrist (S61.512A, 881.02) Comments: healing Status: Resolved as of 28-Nov-2016 Low back pain (M54.5, 724.2) Status: Inactive as of 10-Sep-2017 Mastitis (N61.0, 611.0) Comments: improving but residual sx - so will refer Status: Resolved as of 04-Nov-2012 [facility] WELLNESS EXAM Status: Inactive as of 28-Nov-2016 methylmalonic acid elevatin Status: Inactive as of 10-Sep-2017 Muscle spasm (M62.838, 728.85) Status: Inactive as of 10-Sep-2017 Nausea (R11.0, 787.02) Status: Resolved as of 28-Nov-2016 Neck Pain (Renamed from Cervical pain) (M54.2, 723.1) Status: Inactive as of 10-Sep-2017 Need for prophylactic vaccination and inoculation against influenza (Z23, V04.81) Status: Inactive as of 29-Jul-2014 Need for prophylactic vaccination and inoculation against influenza (Renamed from Need for immunization against influenza) (Z23, V04.81) Status: Inactive as of 28-Nov-2016 Need for prophylactic vaccination and inoculation against influenza (Renamed from Need for immunization against influenza) (Z23, V04.81) Status: Inactive as of 28-Nov-2016 Need for vaccination against Streptococcus pneumoniae (Z23, V03.82) Status: Inactive as of 29-Jul-2014 Nonspecific abnormal findings on radiological and examination of intrathoracic organs (R93.8, 793.2) Status: Inactive as of 10-Sep-2017 Other signs and symptoms in breast (N64.59, 611.79) Status: Resolved as of 04-Nov-2012 Pain in thoracic spine (M54.6, 724.1) Comments: improving Status: Inactive as of 10-Sep-2017 Pain, eye, left (H57.12, 379.91) Status: Resolved as of 13-Dec-2014 Palpitations (R00.2, 785.1) Status: Inactive as of 29-Jul-2014 poison akshat Status: Resolved as of 09-Nov-2009 possible meningioma of brain Comments: abnormal ct of brain Status: Inactive as of 29-Jul-2014 Pyelonephritis (N12, 590.80) Status: Inactive as of 29-Jul-2014 Rash (R21, 782.1) Comments: left areola and surrounding area Status: Resolved as of 04-Nov-2012 recurrent uti Comments: post treatment Status: Resolved as of 03-Jul-2011 recurrent uti Status: Inactive as of 04-Nov-2012 rib pain Status: Resolved as of 09-Nov-2009 screening Status: Inactive as of 04-Nov-2012 screening Status: Inactive as of 04-Nov-2012 screening Status: Inactive as of 03-Jul-2011 screening Status: Inactive as of 24-Jan-2015 screening Status: Inactive as of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 MEEKS Rep #: : 1945 F 71 From: Corey Saldaña MD PCP: Audrey Law DO Status: REG CLI Study: SCREENING MAMM (CAD), BILAT Date of Exam: 10/07/17 Exam# [id number] Ordering Dr: Audrey Law DO ADDEN DUM by Corey Saldaña MD on 10/09/17 at 0957 HPBI/SCREENING MAMM (CAD), BILAT 10/09/17 1004 Date cc: Audrey Law DO * Signed ADDENDUM by Corey Saldaña MD on 10/09/17 at 0957 ADDENDUM This is an addendum report for JOAQUÍNADS category. BIRADS Category 0: Addit ional imaging required. Electronically Signed: Corey Saldaña MD at 9:57 EST Tel [phone], Service support , 10/09/17 0957 Date cc: De jim Law DO * Signed MAMMOGRAPHY - BILATERAL SCREENING REASON FOR EXAM: Female, 71 years old. Routine annual screening examination. PERTINENT HISTORY: Daughter with breast cancer. Remote bilateral ex cisional breast biopsies. TECHNIQUE: Digital bilateral breast boyd (3D mammographic acquisition) in the CC and MLO projections. 2-D mediolateral oblique (MLO) and craniocaudad (CC) views of both breast s were obtained. CAD: Full Field Digital Mammography with Computer Added Detection was performed. COMPARISON: Comparison is made with prior study dated August 07, 2016 and October 27, 2014. FINDINGS: Breast Composition: The breasts are heterogeneously dense, which may obscure small masses. There is a 5.3 mm x 6.6 mm well-defined nodule in the upper outer aspect o f the left breast. This may represent a small cyst. Correlation with ultrasound is recommended. Stable bilateral benign-appearing axillary lymph nodes. No other significant abnormalities are identified . HPBI/SCREENING MAMM (CAD), BILAT IMPRESSION: Subcentimeter well-defined nodular density in the upper outer aspect of the left breast as describ ed. Correlation with ultrasound is recommended. ASSESSMENT CATEGORY: BIRADS Category 2: Benign. A letter regarding these results will be sent to the patient by the facility within 30 days. Approximately 10% of breast cancers are not detected by mammography. A normal mammogram should not delay biopsy of a clinically suspicious abnormality. [id number] Electronically Signed: Corey Saldaña MD at 10:32 EST Tel [phone], Service support , CC: Audrey Law DO Instructional Technology Specialist: Signed 07-Oct-2017 SCREENING MAMM (CAD), BILAT Result: Comments: See Note; NOTES: [facility] Imaging Services [address] [place] [address] SCREENING MAMM (CAD), BILAT MR#: [id number] Acct: [id number] Name: JS MEEKS Rep #: : 1945 F 71 From: Corey Saldaña MD PCP: Audrey Law DO Status: REG CLI Study: SCREENING MAMM (CAD), BILAT Date of Exam: 10/07/17 Exam# [id number] Ordering Dr: Audrey Law DO MAMMO GRAPHY - BILATERAL SCREENING REASON FOR EXAM: Female, 71 years old. Routine annual screening examination. PERTINENT HISTORY: Daughter with breast cancer. Remote bilateral excisional breast biopsies. TECHNIQUE: Digital bilateral breast boyd (3D mammographic acquisition) in the CC and MLO projections. 2-D mediolateral oblique (MLO) and craniocaudad (CC) views of both breasts were obtained. CAD: Full Field Digital Mammography with Computer Added Detection was performed. COMPARISON: Comparison is made with prior study dated August 07, 2016 and October 27, 2014. F INDINGS: Breast Composition: The breasts are heterogeneously dense, which may obscure small masses. There is a 5.3 mm x 6.6 mm well-defined nodule in the upper outer aspect of the left breast. This may represent a small cyst. Correlation with ultrasound is recommended. Stable bilateral benign-appearing axillary lymph nodes. No other significant abnormalities are identified. HPBI/SCREENING MAMM (CAD), BILAT IMPRESSION: Subcentimeter well-defined nodular density in the upper outer aspect of the left breast as described. Correlation with ultras ound is recommended. ASSESSMENT CATEGORY: BIRADS Category 2: Benign. A letter regarding these results will be sent to the patient by the facility within 30 days. A pproximately 10% of breast cancers are not detected by mammography. A normal mammogram should not delay biopsy of a clinically suspicious abnormality. [id number] Electronically Signed: Corey Saldaña MD at 10:32 EST Tel [phone], Service support , CC: Audrey Law DO Instructional Technology Specialist: Signed 23-Sep-2017 TXT - Blood Flow Screening Result: Comments: See Note; NOTES: [facility] Cardiovascular Services [address] [place] [address] 09/23/17 0822 MR#: [id number] Acct: [id number] Name: JS MEEKS Rep #: [id number] : 1945 71 From: Jeet Grijalva MD Attending Dr: Audrey Law DO Status: REG REF Ordering Dr: Date: 09/23/17 Location: [facility] Sex: F C Admitted: Reason For Study: Blood flow screening Carotid Duplex Ultrasound Abdominal Aorta The right maximum ICA velocity is 82.7/30.5 cm/s.The maximal outside diameter of the proximal The left maximum ICA velocity is 112.0/36.9 cm/s.aorta measures 2.0 cm in the longitudinal axis. The right ECA velocity is less than 125 cm/s. The maximal outside diameter of the proximal The left ECA velocity is less than 125 cm/s. aorta measures 2.1 x 2.1 cm in the cross- T here is no plaque formation noted on the right sectional axis. side. There is no plaque formation noted on the left side. Ankle Brachial Index The right ankle/ brachial index is 1.0. The left ankle/ br achial index is 1.0. Medical History and Assessment The heart rate is 60 beats per minute. The heart rhythm is regular. The right blood pressure is 118/74. The left blood pressure is 120/74. The assess ment was performed by Baylee Haddad RVT. Interpretation Summary Normal carotid artery screening (0 to 15% narrowing). Normal aortic ultrasound exam. The ankle/brachial index is normal (1.0 or greater). .rdering Physician: Audrey Law D.O Performed By: Teresita Haddad RVT 09/23/172213 Date Jeet Grijalva MD CC: Audrey Law DO Date Dictated: 09/23/17821 Date Transcribed: 09/23/172213 Instructional Technology Specialist: Signed 16-Sep-2017 Brain W/WO Contrast Result: Comments: See Note; NOTES: [facility] Imaging Services [address] [place] [address] Brain W/WO Contrast MR#: [id number] Acct: [id number] Name: JS MEEKS Rep #: [id number] : 1945 F 71 From: Gabriela Rhodes PCP: Audrey Law DO Status: REG CLI Study: Brain W/WO Contrast Date of Exam: 09/16/17 Exam# [id number] Ordering Dr: Audrey Law DO STUDY: MRI BRAIN WITH AND WITH OUT CONTRAST REASON FOR EXAM: Female, 71 years old. meningioma, F/U, NO SYMPTOMS. TECHNIQUE: Standardized multiplanar fat and water weighted pulse sequences were obtained. 7 ml of Gadavist contrast ma terial was administered intravenously for the contrast portion of the examination. COMPARISON: November 04, 2015 FINDINGS: Normal size of the ventricles and extra-axia l spaces for the patient's age. There are a limited number of small white matter hyperintensities, distributed throughout the deep white matter tracts of the cerebral hemispheres, consistent with mild c hronic white matter ischemic changes. Normal bilateral basal ganglia. Normal thalami. There is no extra-axial fluid accumulation. Normal flow voids within the major intracranial circulation suggesting patency by spin echo criteria. Normal venous enhancement. Again noted is a 1 cm left frontal extra-axial likely meningioma without change since the prior examination. There is no underlying edema [place] sella turcica, pituitary gland, infundibular stalk, optic chiasm and hypothalamus. Normal tectal plate and pineal gland. Normal midbrain, tommie and medulla. Normal cerebellum. Normal basal cisterns. Normal bilateral temporal bones. Normal bilateral internal auditory canals. No demonstrated orbital abnormality, within the constraints of a routine brain study. Normal visualized paranasal sinuses. N ormal calvarium and skull base. Normal visualized soft tissue structures. Normal visualized upper cervical spine. MRI/Brain W/WO Contrast IMPRESS ION: Stable left frontal meningioma. Electronically Signed: Gabriela Rhodes MD at 10:10 EST Tel , Service support , CC: Audrey Law DO Instructional Technology Specialist: Signed 07-Aug-2016 Bilat Scrn Digital AND CAD Result: Comments: See Note; NOTES: [facility] Imaging Services [address] [place] [address] Verdana 4d Bilat Scrn Digital AND CAD MR#: [id number] Acct: [id number] Name: JS MEEKS Rep #: [id number] : 1945 F 70 From: Corey Saldaña MD PCP: Audrey Law DO Status: REG CLI Study: Bilat Scrn Digital AND CAD Date of Exam: 08/07/16 Exam# [id number] Ordering Dr: Audrey Law MAMMOGRAPHY - BILATERAL SCREENING REASON FOR EXAM: Female, 70 years old. Routine annual screening examination. PERTINENT HISTORY: Daughter with breast cancer. History of prior bilateral excisional breast biopsies. TECHNIQUE: Digital bilateral breast boyd (3D mammographic acquisition) in the CC and MLO projections. 2-D mediolateral oblique (MLO) and craniocaudad (CC) views of both breasts were o btained. CAD: Full Field Digital Mammography with Computer Added Detection was performed. COMPARISON: Comparison is made with prior study dated October 27, 2014 and July 30, 2012. FINDINGS: Breast Composition: The breasts are heterogeneously dense, which may obscure small masses. There are no dominant masses or suspicious calcifications. Stable benign appearing bilateral axillary lymph nodes. Stable benign appearing calcified nodules in both breasts. No other significant abnormalities are identified. There has been no significant change since the prior study . [facility]/Bilat Scrn Digital AND CAD IMPRESSION: Stable bilateral screening mammogram. Yearly follow-up mammogram recommended. (A) ASSESSMENT CATEGORY: BIRADS Category 2: Benign. A letter regarding these results will be sent to the patient by the facility within 30 days. Approximately 10% of breast cancers are not detected by mammography. A normal mammogram should not delay biopsy of a clinically suspicious abnormality. [id number] Electronically Signed: Corey Saldaña MD at 12:30 EST , Service support [phone], CC: Audrey Law DO Instructional Technology Specialist: Signed 07-Aug-2016 Chest PA and Lateral Result: Comments: See Note; NOTES: [facility] Imaging Services [address] [place] [address] Verdana 4d Chest PA and Lateral MR#: [id number] Acct: [id number] Name: JS MEEKS Rep # : [id number] : 1945 70 From: Corey Saldaña MD PCP: Audrey Law DO Status: REG CLI Study: Chest PA and Lateral Date of Exam: 08/07/16 Exam# [id number] Ordering Dr: Audrey Law DO STUDY: X -RAY CHEST REASON FOR EXAM: Female, 70 years old. Shortness of breath on expiration. TECHNIQUE: PA and lateral views of the chest. COMPARISON: Comparison is made with prior study dated February 16, 2016. FINDINGS: Scattered calcified granulomas. There is no demonstrated pleural abnormality. Normal size heart. Normal mediastinum and debra. Normal visualized pulmonary arteries. There is atherosclerotic calcification of the aortic arch with tortuosity. There is demineralization and degenerative changes of the dorsal spine. There is approximately 50% loss of height o f a mid dorsal spine vertebrae.. Multiple healed left-sided rib fractures. There is no demonstrated abnormality of the visualized soft tissue structures of the upper abdomen. RAD/Chest PA and Lateral IMPRESSION: No acute abnormality is seen. Electronically Signed: Corey Saldaña MD at 10:53 EST Tel [phone], Service support , CC: Audrey Law DO Instructional Technology Specialist: Signed 07-Aug-2016 DXA BONE DENS W/VERT FX ASMT Result: Comments: See Note; NOTES: [facility] Imaging Services [address] [place] [address] Verdana 4d DXA BONE DENS W/VERT FX ASMT MR#: [id number] Acct: [id number] Name: JS MEEKS Rep #: [id number] : 1945 F 70 From: Corey Saldaña MD PCP: Audrey Law DO Status: REG CLI Study: DXA BONE DENS W/VERT FX ASMT Date of Exam: 08/07/16 Exam# [id number] Ordering Dr: Jayna Law ra, DO STUDY: DUAL ENERGY X-RAY ABSORPTIOMETRY / DXA REASON FOR EXAM: Female, 70 years old. Early menopause. Loss of height. TECHNIQUE: Bone Mineral Density (BMD) measurements of lumbar spine and justin ateral hips were obtained. COMPARISON: Comparison is made with prior study dated August 03, 2014. FINDINGS: Lumbar Spine (L1-L4): g/cm2 (0.971) / T-score (-1.9) / Z-score (-0.2) Findings are suggestive of osteopenia with a moderate fracture risk. Left Femur Total: g/cm2 (0.706) / T-score (-2.4) / Z-score (-1.0) Left Femoral Neck: g/cm2 (0.725) / T-score (-2.2) / Z-score (-0.6) Right Femur Total: g/cm2 (0.709) / T-score (-2.4) / Z-score (-0.9) Right Femoral Neck: g/cm2 (0.710) / T-score (-2.4) / Z-score (-0.7) The T-Scores on the most recent prior examinatio n were: Lumbar Spine (L1-L4): There has been improvement of bone density since the previous examination. Left Femur Total: which represents a worsening of 0.1%. Right Femur Total: which represents an improvement of 4.4%. HPBD/DXA BONE DENS W/VERT FX ASMT IMPRESSION: The patient is considered osteopenic as outlined below according to World Heat h Organization (WHO) criteria with a moderate fracture risk. There has been worsening of bone density since the previous examination. Reference Information: The T-s core is the number of standard deviations above or below the standard which is normal for young adults at their peak bone mineral density. The World Health Organization (WHO) interprets the T-scores as follows: Above -1 Normal bone density Between -1 and -2.5 Osteopenia Equal to / or below -2.5 Osteoporosis As a practical clinical guideline, osteopenia may be graded as follows: Mild -1 through -1.5 Moderate -1.6 through -2.0 Severe -2.1 through -2.4 The Z-score is the number of standard deviations above or below age-matched controls. A Z-score of less than -1.5 would be considered abnormal. Refe rences: 1. NIH Osteoporosis and Related Bone Diseases http://www.osteo.org 2. International Society for Clinical Densitometry http://www.iscd.org 3. National Osteoporosis Foundation http://www.nof.org Electronically Signed: Corey Saldaña MD at 13:51 EST Tel [phone], Service support [phone], CC: Audrey Law DO; GEE BELCHER Instructional Technology Specialist: Signed 13-Jul-2016 Stress Test Echo w/o Contrast Result: Comments: See Note; NOTES: [facility] Cardiovascular Services [address] [place] [address] Verdana 4d Stress Test Echo w/o Contrast MR#: [id number] Acct: [id number] Name: JS ETIENNE Rep #: [id number] : 1945 70 From: Mark Leger MD Primary Care: Audrey Law DO Status: REG CLI Ordering Dr: Mark Leger MD Sex: F C Reason For Study: SOB, Palpitations Stress R esults Protocol: Markus Protocol Maximum Predicted HR: 151 bpm Target HR: 128 bpm% Max imum Predicted HR: 87 % DurationHeart Rate Stage (mm:ss) (bpm) BP Baseline 64 110/72 Markus Protocol Stage I 3:00 97 128/70 Markus Protocol Stage II 3:00 10 7 134/68 Markus Protocol Stage III 3:00 13 1 142/64 Recovery 77 110/68 Stress Duration: 9:00 mm:ss Maximum Stress HR: 131 bpmM ETS: 10 Baseline Echocardiogram F indings Stress Echo Wall motion Data Resting WMIntermediate WMStress WM Resting Wall Motion Wall Motion Stress No regional wall motion No regional wall motion abnormalities noted. abnormalities noted. Ejection Fraction 55 %. Ejection Fraction 65 %. EKG Data Baseline ECG demonstrates normal sinus rhythm with a rate of 64 beats per minute. Normal intervals are noted. The resting blood pressure was 11 0/72. The patient exercised according to the regular Markus protocol for a total duration of 9min. The maximum heart rate attained was 131 beats per minute. This was 86% of maximum predicted heart rate. The patient exercised into stage 3 of the Markus protocol. During stress, there were no ST or T wave changes noted to suggest ischemia. At peak exercise, upsloping ST changes only were noted, which did n ot meet the criteria for ischemia. Normal stress electrocardiogram. No arrhythmias noted. No clinical angina was noted. Interpretation Summary Normal resting LV systolic function. Nonstenotic valves. Wi th stress, the LV size decreased and all segments augmented normally. The LVEF increased from 55% to 65%. Negative for ischemia at 86% of MPHR and at 10.1 METS. Normal stress echo. Ordering Physician: Mark Leger Referring Physician: Audrey Law D.O. Performed By: Vicki Choi RDCS Electr onically signed by: Mark Leger MD on 07/13/2016 02:35 PM 07/13/16 1435 Date Mark Leger MD CC: Mark Leger MD; Audrey Law DO Date Dictated: 6 36 Date Transcribed: 07/13/161434 Instructional Technology Specialist: Signed 02-May-2016 Pulmonary Function Report Comp Result: Comments: See Note; NOTES: [facility] Pulmonary Services/Neurology [address] [place] [address] Pulmonary Function Test (Comp) MR#: [id number] Acct: [id number] Name: RENITA MEEKS Rep #: [id number] : 1945 70 From: Markus Fuentes MD Referring Dr: Audrey Law DO Status: REG CLI Ordering Dr: Audrey Law DO Date: 05/01/16 Location: [facility] Sex: F C DATE OF SERVICE: 016 BRIEF HISTORY OF PRESENT ILLNESS: The patient is a 70-year-old female, currently under the care of Dr. Law, who presents for a complete pulmonary function test secondary to a diagnosis o f cough. The respiratory therapist reported good patient effort and reproducible results. INTERPRETATION: Forced expiration spirometry demonstrates a moderate large airways obstructive ventilatory defe ct. There is a significant response to bronchodilators in FVC using strict ATS criteria. Spirograms are of good quality and do not plateau indicating slowing emptying areas of the lung. The respiratory flow volume loop shows decreased expiratory flow rates at all lung volumes consistent with airways obstruction. Lung volumes by body plethysmography show all lung volumes at the upper limit of normal. Diffusion capacity by single breath carbon monoxide is preserved at 87% of predicted. Airway resistance is elevated. No previous studies are available for comparison. IMPRESSION: Partially reversible moderate large airways obstructive ventilatory defect. MARKUS FUENTES MD C C: Audrey Law DO T: NTS JOB: [id number] 05/02/16 0622 <Electronically signed by Markus Fuentes MD> Date Markus Fuentes MD CC: Markus Fuentes MD; Audrey Law DO Date Dictated: 05/01/1656 Date Transcribed: 05/01/16955 Instructional Technology Specialist: Signed 04-Nov-2015 Brain W/WO Contrast Result: Comments: See Note; NOTES: [facility] Imaging Services [address] [place] [address] Verdana 4d Brain W/WO Contrast MR#: [id number] Acct: [id number] Name: ARIEL MEEKS Rep #: [id number] : 1945 F 70 From: Niki Cantu MD PCP: Audrey Law DO Status: REG CLI Study: Brain W/WO Contrast Date of Exam: 11/04/15 Exam# [id number] Ordering Dr: Audrey Law DO STUDY: MRI BRAIN WITH AND WITHOUT CONTRAST REASON FOR EXAM: Female, 70 years old. Followup meningioma. TECHNIQUE: Standardized multiplanar fat and water weighted pulse sequences were obtained. 6 ml of Gadavist contrast material was administered intravenously for the contrast portion of the examination. COMPARISON: None. FINDINGS: There is an extra-axia l dural based mass located adjacent to the high left frontal lobe that measures approximately 9.8 mm. This enhances homogeneously. This appears similar to the previous MRI. There is mild cerebral at rophy with widening of the extra-axial spaces and ventricular dilatation. There are a limited number of small white matter hyperintensities, distributed throughout the deep white matter tracts of the cerebral hemispheres, consistent with mild chronic white matter ischemic changes. There is no evidence for recent intracranial ischemia or other cause of cytotoxic edema on diffusion weighted imagi ng (DWI). Normal T2* images of the brain without demonstrated susceptibility artifact. There is no demonstrated hemosiderin stain. Normal bilateral basal ganglia. Normal thalami. There is no extra-a xial fluid accumulation. Normal flow voids within the major intracranial circulation suggesting patency by spin echo criteria. Normal venous enhancement. There is no enhancing intra-axial or extra- axial abnormality. Normal sella turcica, pituitary gland, infundibular stalk, optic chiasm and hypothalamus. Normal tectal plate and pineal gland. Normal midbrain, tommie and medulla. Normal cerebell um. Normal basal cisterns. Normal bilateral temporal bones. Normal bilateral internal auditory canals. No demonstrated orbital abnormality, within the constraints of a routine brain study. There is mucoperiosteal inflammatory disease of the paranasal sinuses consistent with mild chronic sinusitis. Normal calvarium and skull base. Normal visualized soft tissue structures. Normal visualized upper cervical spine. IMPRESSION: 1. Essentially unchanged appearance to left frontal meningioma since previous study. 2. No MR evidence for acute infarct. 3. Unc hanged appearance to mild involutional changes and sequela of microvascular disease. Electronically Signed: Niki Cantu MD at 12:52 EDT , Service support [phone] , CC: Audrey Law DO Instructional Technology Specialist: Signed 05-Oct-2015 Spirometry (49403) Comments: good effort curve small- Result: 05-Oct-2015 ELECTROCARDIOGRAM, COMPLETE (ECG) (15320) Result: [MEASUREMENTS ANALYSIS] Date of Test: 10/05/2015 09:16:25; Heart Rate: 67; VA Interval: 184; QRS: 92; QT Interval: 388; Corrected QT Interval (QTc): 400; P Wave [place]: 44; QRS Wave [place]: 15; T Wave [place]: 48; Blood Pressure: 122/74 [ECG DIAGNOSTIC STATEMENTS] Date of Test: 10/05/2015 09:16:25; Summary: Sinus Rhythm WITHIN NORMAL LIMITS 18-Aug-2015 Chest PA and Lateral Result: Comments: See Note; NOTES: [facility] Imaging Services [address] [place] [address] Verdana 4d Chest PA and Lateral MR#: [id number] Acct: [id number] Name: Fiona MEEKS Rep #: [id number] : 1945 F 69 From: Willie Andersen PCP: Audrey Law DO Status: REG CLI Study: Chest PA and Lateral Date of Exam: 08/18/15 Exam# [id number] Ordering Dr: Rey Tyson MD STUDY: X-RAY CHEST REASON FOR EXAM: Female, 69 years old. Cough TECHNIQUE: PA and lateral COMPARISON: 07/29/14 FINDINGS: The lungs are clear and e xpanded. There is no demonstrated pleural abnormality. Normal size heart. Normal mediastinum and debra. Normal visualized pulmonary arteries. Normal visualized aortic arch and descending thoracic ao rta. Normal visualized thoracic spine. There are multiple old healed LEFT-sided rib fractures. There is no demonstrated abnormality of the visualized soft tissue structures of the upper abdomen. IMPRESSION: There is NO acute cardiopulmonary abnormality. Electronically Signed: Willie Andersen MD at 6:26 EST , Service sup port [phone], RAD/Chest PA and Lateral IMPRESSION: There is NO acute cardiopulmonary abnormality. Electronically Signed: Willie Andersen MD at 6:26 EST , Service support [phone], CC: Michelle Tyson MD; Audrey Law DO Instructional Technology Specialist: Signed 02-Dec-2014 Spirometry (02614) Comments: obstruction present Result: 27-Oct-2014 Bilat Scrn Digital AND CAD Result: Comments: See Note; NOTES: [facility] Imaging Services [address] [place] [address] Breast Imaging Report MR#: [id number] Acct: [id number] Name: JS MEEKS Rep #: [id number] : 1945 F 69 From: Sonu Olmstead MD PCP: Audrey Law DO Status: REG CLI Study: Bilat Scrn Digital AND CAD Date of Exam: 10/27/14 Exam# [id number] Ordering Dr: Audrey Law DO MAMMOGR APHY - BILATERAL SCREENING REASON FOR EXAM: Female, 69 years old. Routine annual screening examination. PERTINENT HISTORY: Daughter with breast cancer. TECHNIQUE: Digital examination. Mediolatera l oblique (MLO) and craniocaudad (CC) views of both breasts were obtained. CAD: CAD was performed on this study. COMPARISON: 07/30/12 FINDINGS: Breast Composi tion: The breasts are heterogeneously dense, which may obscure small masses. There are no dominant masses or suspicious calcifications. Stable scattered benign lucent centered calcifications. No o ther significant abnormalities are identified. There has been no significant change since the prior study. IMPRESSION: Stable bilateral screening mammogram. Year ly follow-up recommended. (A) ASSESSMENT CATEGORY: BIRADS Category 2: Benign. A letter regarding these results will be sent to the patient by the facility within 30 days. BR2 Approximately 10% of breast cancers are not detected by mammography. A normal mammogram should not delay biopsy of a clinically suspicious abnormality. Electronically Signed: Sonu Olmstead MD at 11:33 EDT Tel , Service support [phone], CC: Audrey Law DO Instructional Technology Specialist: Signed 27-Oct-2014 Bilat Scrn Digital AND CAD Result: Comments: See Note; NOTES: [facility] Imaging Services [address] [place] [address] Breast Imaging Report MR#: [id number] Acct: [id number] Name: JS MEEKS Rep #: [id number] : 1945 F 69 From: Sonu Olmstead MD PCP: Audrey Law DO Status: REG CLI Study: Bilat Scrn Digital AND CAD Date of Exam: 10/27/14 Exam# [id number] Ordering Dr: Audrey Law by Corey Saldaña MD on 11/01/14 at 1353 ADDENDUM This is an addendum report. Prior out side examination was made available for review. Comparison is made with prior examination dated November 06, 2013. There is essentially no change since prior study. Electronically Signed: Corey akbar MD at 13:53 EDT Tel [phone], Service support [phone], 11/01/14 1353 Date cc: Audrey Fast DO * Signed MAMMOGRAPHY - BILATERAL SC REENING REASON FOR EXAM: Female, 69 years old. Routine annual screening examination. PERTINENT HISTORY: Daughter with breast cancer. TECHNIQUE: Digital examination. Mediolateral oblique (MLO) and craniocaudad (CC) views of both breasts were obtained. CAD: CAD was performed on this study. COMPARISON: 07/30/12 FINDINGS: Breast Composition: The breasts a re heterogeneously dense, which may obscure small masses. There are no dominant masses or suspicious calcifications. Stable scattered benign lucent centered calcifications. No other significant ab normalities are identified. There has been no significant change since the prior study. IMPRESSION: Stable bilateral screening mammogram. Yearly follow-up recomm ended. (A) ASSESSMENT CATEGORY: BIRADS Category 2: Benign. A letter regarding these results will be sent to the patient by the facility within 30 days. BR2 A pproximately 10% of breast cancers are not detected by mammography. A normal mammogram should not delay biopsy of a clinically suspicious abnormality. Electronically Signed: Cristino Olmstead MD 24/10/18 at 11:33 EDT Tel , Service support [phone], CC: Audrey Law DO Instructional Technology Specialist: Signed 03-Aug-2014 Vert Fx Asess/Lat Bone Den(H) Result: Comments: See Note; NOTES: [facility] Imaging Services [address] [place] [address] Bone Density Report MR#: [id number] Acct: [id number] Name: JS MEEKS Rep #: [id number] : 1945 F 68 From: Corey Saldaña MD PCP: Audrey Law DO Status: REG CLI Study: Vert Fx Asess/Lat Bone Den(H) Date of Exam: 08/03/14 Exam# [id number] Ordering Dr: Audrey Law DO STUDY: DUAL ENERGY X-RAY ABSORPTIOMETRY / DXA REASON FOR EXAM: Female, 68 years old. Vertebral fracture assessment. TECHNIQUE: Bone Mineral Density (BMD) measurements of lumbar spine was obtained. COMPARISON: None. FINDINGS: A lateral view of the thoracic and lumbar spines obtained for vertebral fracture assessment. There is approximately 20% loss of height of the superior and of the T12 vertebrae. IMPRESSION: 20% loss of height of the superior endplate of the T12 vertebrae. ____ Reference Information: The T-score is the number of standard deviations above or below the standard which is normal for young adults at their peak bone mineral density. The World Health Organi zation (WHO) interprets the T-scores as follows: Above -1 Normal bone density Between -1 and -2.5 Osteopenia Equal to / or below -2.5 Osteoporosis As a practical clinical guideline, osteopenia ma y be graded as follows: Mild -1 through -1.5 Moderate -1.6 through -2.0 Severe -2.1 through -2.4 The Z-score is the number of standard deviations above or below age-matched controls. A Z-score of less than -1.5 would be considered abnormal. References: 1. NIH Osteoporosis and Related Bone Diseases http://www.osteo.org 2. International Society for Clinical Densitometry http://www.iscd.org 3. National Osteoporosis Foundation http://www.nof.org Electronically Signed: Corey Saldaña MD at 13:11 EST Tel [phone], Service support [phone], CC: Audrey Law DO Instructional Technology Specialist: Signed 03-Aug-2014 Dexa Bone Density Study (HP) Result: Comments: See Note; NOTES: [facility] Imaging Services [address] [place] [address] Bone Density Report MR#: [id number] Acct: [id number] Name: JS MEEKS Rep #: [id number] : 1945 F 68 From: Corey Saldaña MD PCP: Audrey Law DO Status: REG CLI Study: Dexa Bone Density Study (HP) Date of Exam: 08/03/14 Exam# [id number] Ordering Dr: Audrey Law DO STUDY: DUAL ENERGY X-RAY ABSORPTIOMETRY / DXA REASON FOR EXAM: Female, 68 years old. The patient is postmenopausal. TECHNIQUE: Bone Mineral Density (BMD) measurements of lumbar spine and bilateral hips were obtained. COMPARISON: Comparison is made with prior study dated May 06, 2012. FINDINGS: Lumbar Spine (L1- L4): g/cm2 (0.907) / T-score (-2.4) / Z-score (-0.8) Findings are suggestive of osteopenia with a moderate fracture risk. Left Femur Total: g/cm2 (0.707) / T-score (-2.4) / Z-score (-1.1) Left Femoral Neck: g/cm2 (0.646) / T-score (-2.8 ) / Z-score (-1.2) Right Femur Total: g/cm2 (0.679) / T-score (-2.6) / Z-score (-1.3) Right Femoral Neck: g/cm2 (0.646) / T-score (-2.8) / Z-score (-1.2) The T-Scores on the most recent prior examin ation were: Lumbar Spine (L1-L4): There has been worsening of bone density since the previous examination. Left Femur Total: which represents a worsening of 3.5%. Right Femur Total: which represen ts a worsening of 7.9%. IMPRESSION: The patient is considered osteopenic as outlined below according to World Sarbjit Organization (WHO) criteria with a moderate f racture risk. There has been worsening of bone density since the previous examination. Reference Information: The T-score is the number of standard deviations a mere or below the standard which is normal for young adults at their peak bone mineral density. The World Health Organization (WHO) interprets the T-scores as follows: Above -1 Normal bone density Between -1 and -2.5 Osteopenia Equal to / or below -2.5 Osteoporosis As a practical clinical guideline, osteopenia may be graded as follows: Mild -1 through -1.5 Moderate -1.6 through -2.0 Severe -2.1 through -2.4 The Z-score is the number of standard deviations above or below age-matched controls. A Z-score of less than -1.5 would be considered abnormal. References: 1. NIH Osteoporosis a nd Related Bone Diseases http://www.osteo.org 2. International Society for Clinical Densitometry http://www.iscd.org 3. National Osteoporosis Foundation http://www.nof.org Electronically Signed: Billy Saldaña MD at 14:42 EST Tel [phone], Service support [phone], CC: Audrey Law DO Instructional Technology Specialist: Signed 29-Jul-2014 Chest PA and Lateral Result: Comments: See Note; NOTES: [facility] Imaging Services [address] [place] [address] Radiology Report MR#: [id number] Acct: [id number] Name: JS MEEKS Rep #: [id number] : 1945 F 68 From: Brad Lea MD PCP: Audrey Law DO Status: REG CLI Study: Chest PA and Lateral Date of Exam: 07/29/14 Exam# [id number] Ordering Dr: Michelle Tyson MD STUDY: X-RA Y CHEST REASON FOR EXAM: Female, 68 years old. Recurring cough. Congestion. TECHNIQUE: Frontal and lateral views of the chest. COMPARISON: CT scan chest 01/19/14. Chest x-ray 12/06/13. FINDINGS: There is atelectasis or fibrosis in the left lung base, not significantly different from previous studies. There are no demonstrated acute pulmonary infiltrates. There is no demonstrated pleural abnormality. Normal size heart. Normal mediastinum and debra. Normal visualized pulmonary arteries. There is atherosclerotic calcification of the aortic arch with tor tuosity. There are multilevel degenerative changes in the visualized spine. There is an old healed left clavicular fracture. There are multiple old healed left rib fractures. There is no demonstra anum abnormality of the visualized soft tissue structures of the upper abdomen. IMPRESSION: Fibrosis or atelectasis left lung base. No evidence for acute cardiop ulmonary pathology. Electronically Signed: Brad Lea MD at 7:26 EST , Service support [phone], CC: Michelle Tyson MD; Audrey Law DO Instructional Technology Specialist: Signed 29-Jul-2014 Spirometry (04065) Comments: see scanned document of test done to see results reviewed today with patient Result: 26-Mar-2014 Brain W/WO Contrast Result: Comments: See Note; NOTES: [facility] Imaging Services [address] [place] [address] MRI Report MR#: [id number] Acct: [id number] Name: JS MEEKS Rep #: [id number] DO B: 1945 F 68 From: Joshua Salcido MD PCP: Audrey Law DO Status: REG CLI Study: Brain W/WO Contrast Date of Exam: 03/26/14 Exam# [id number] Ordering Dr: Audrey Law DO STUDY: MRI BRAIN WI TH AND WITHOUT CONTRAST REASON FOR EXAM: Female, 68 years old. History of meningioma. New onset of imbalance. TECHNIQUE: Standardized multiplanar fat and water weighted pulse sequences were obtain ed. 6 ml of Gadavist contrast material was administered intravenously for the contrast portion of the examination. COMPARISON: MRI dated February 10, 2013. FINDINGS: The cortical sulci and ventricles are within normal limits in size for age. No acute infarction is demonstrated on the diffusion weighted series. A minimal number of small scattered signal abnormal ities are seen in the bilateral cerebral white matter, without significant change. The basal ganglia and thalami appear normal. Multiple perivascular spaces are noted, more prominent on the right. No lesion is identified in the brainstem or cerebellum. There is redemonstration of the small enhancing extra-axial mass in the left frontal region measuring approximately 8 x 10 x 11 mm. No abnor mality is identified in the pituitary, optic chiasm, or pineal. The cavernous sinuses appear normal. Expected major vascular structures at the base of the brain show patency. The previously describe d small developmental venous anomaly in the upper right cerebellum is difficult to visualize on the current images due to vascular pulsation artifacts. The visualized internal auditory canals appear normal. No acute orbital abnormality is seen. There is moderate mucosal thickening in the bilateral ethmoid sinus. No lesion is identified in the calvarium or skull base. IMPRESSION: No acute process identified. No interval change in the small left frontal meningioma. No change noted in the mild cerebral white matter signal changes, which may represe nt mild chronic small vessel ischemic disease. Electronically Signed: Joshua Cotter MD at 15:20 EDT , Service support [phone], CC: Audrey Law DO Instructional Technology Specialist: Signed 19-Jan-2014 Chest WITH Contrast Result: Comments: See Note; NOTES: [facility] Imaging Services [address] [place] [address] CAT Scan Report MR#: [id number] Acct: [id number] Name: JS MEEKS Rep #: [id number] : 1945 F 68 From: Corey Saldaña MD PCP: Audrey Law DO Status: REG CLI Study: Chest WITH Contrast Date of Exam: 01/19/14 Exam# [id number] Ordering Dr: Audrey Law DO STUDY: CT RENITA ST WITH CONTRAST REASON FOR EXAM: Female, 68 years old. The patient has a history of prior chest trauma. RADIATION DOSAGE (If Supplied By Facility): CTDIvol = ( 14.89 ) mGy, DLP = ( 575.97 ) mGycm TECHNIQUE: High resolution transaxial imaging was performed following intravenous administration of 100CC ml of Isovue 300 contrast material. Multiplanar coronal and sagittal images were reformatte d. COMPARISON: None. FINDINGS: There is a 3.2 cm x 1.1 cm linear density in the anterior aspect of the left lower lobe. This may represent either focal infilt rate versus area of scarring with the patient's history of prior trauma. Minimal increased markings are also seen in the posterior aspects of the lower lobes bilaterally. Minimal pleural thickening a long the posterior aspect of the right apex. There is no demonstrated pleural abnormality. Normal heart and pericardium. Normal mediastinum. Normal hilar regions. Normal enhanced pulmonary arterie s. Normal aorta arch and descending thoracic aorta. There is deformity of the left upper ribs in keeping with prior trauma and healed rib fractures. There is demineralization of the thoracic vertebra e with multilevel disc space narrowing and spondylosis. There is approximately 50% loss of height of the mid dorsal and upper vertebrae. There is evidence of increased kyphosis. There is no demonst rated abnormality of the visualized upper abdomen. IMPRESSION: Linear density in the anterior aspect of the left lower lobe as described most likely secondary to scarring with the patient's history of prior trauma. Atelectasis and/or infiltrate cannot be excluded. Followup is recommended. There is evidence of healed left upper rib fractures as well as demin eralization of the thoracic spine multi-level loss of height of the dorsal vertebrae. Electronically Signed: Corey Saldaña MD at 10:20 EDT Tel [phone], Service support , CC: Audrey Law DO Instructional Technology Specialist: Signed 29-Dec-2013 Cerv Spine 4 or 5 Views Result: Comments: See Note; NOTES: [facility] Imaging Services [address] [place] [address] Radiology Report MR#: [id number] Acct: [id number] Name: JS MEEKS Rep #: [id number] : 1945 F 68 From: Cristino Salas MD PCP: Audrey Law DO Status: REG CLI Study: Cerv Spine 4 or 5 Views Date of Exam: 12/29/13 Exam# [id number] Ordering Dr: Audrey Law DO STUDY: X-RA Y - CERVICAL SPINE REASON FOR EXAM: Female, 68 years old. Neck pain, left-sided, with spasms TECHNIQUE: 5 view(s) of the cervical spine were obtained. COMPARISON: None FINDINGS: Fusion is noted at the posterior aspect of the C4-C5 vertebral bodies. Mild degenerative retrolisthesis is noted of C5 on C6 and C6 on C7. There is no evidence of acute fractur e or subluxation. Multilevel disc degenerative disc space narrowing is noted. Mild vertebral spondylosis is noted at these levels. Mild uncinate hypertrophy and facet hypertrophy is demonstrated at multiple levels, with mild foraminal stenosis on the right at the C6-C7 level, and on the left at the C5-C6 and C6-C7 levels. Prevertebral soft tissues are normal. ____ IMPRESSION: Moderate multilevel degenerative changes of the cervical spine, as noted above. C4-C5 interbody fusion, with bridging at the posterior aspect of the vertebral bodies. No eviden ce of acute or recent cervical spinal injury. Electronically Signed: Cristino Salas MD at 3:02 EDT Tel , Service support [phone], CC: Audrey Law DO Instructional Technology Specialist: Signed 22-Dec-2013 Abdomen Single View Result: Comments: See Note; NOTES: [facility] Imaging Services [address] [place] [address] Radiology Report MR#: [id number] Acct: [id number] Name: JS MEEKS Rep #: [id number] : 1945 F 68 From: Willie Andersen PCP: Audrey Law DO Status: REG CLI Study: Abdomen Single View Date of Exam: 12/22/13 Exam# [id number] Ordering Dr: Justo Bowles MD STUDY: X-RAY - ABDOMEN/PELVIS REASON FOR EXAM: Female, 68 years old. Stent TECHNIQUE: Single frontal view COMPARISON: 12/05/13 FINDINGS: There is a LEFT-sided ureteral s tent. Stent is in good position. NO stones are seen. There is an unremarkable bowel gas pattern. There is no demonstrated free abdominal air. The visualized liver, spleen and kidneys are grossly n ormal in size and morphology. Normal soft tissue structures. Normal visualized osseous structures. IMPRESSION: LEFT ureteral stent is in good position. Elect ronically Signed: Willie Andersen MD at 2:50 EDT Tel , Service support [phone], CC: Audrey Law DO; Jutso Bowles MD Instructional Technology Specialist: Signed 19-Dec-2013 Operative Report Result: Comments: See Note; NOTES: [facility] Medical Records Department [address] [place] [address] Operative Report MR#: [id number] Acct: [id number] Name: JS MEEKS Rep #: [id number] : 1945 68 From: Justo Bowles MD PCP: Audrey Law DO Status: [facility] DATE OF SERVICE: 12/18/2013 DATE OF SERVICE: December 18, 2013. PREOPERATIVE DIAGNOSIS: Left ureteral ca lculi, status post stent placement. POSTOPERATIVE DIAGNOSIS: Left ureteral calculi, status post stent placement. PROCEDURES PERFORMED: Left ureteroscopy, laser lithotripsy of stone and left stent placement. ANESTHESIOLOGIST: Dr. Leiva. SURGEON: Justo Bowles M.D. SPECIMEN REMOVED: None. DRAINS: A 6-Vietnamese x 24 cm stent on the left side. ESTIMATED BLOOD LOSS: None. INDICATIO NS: A 68-year-old female presented to the hospital with severe renal colic and infection. Had a stent placed. She now comes back for laser lithotripsy of stone in the ureter and also we will try to find the stone in the kidney. PROCEDURE NOTE: The patient was taken back to the operating room. After smooth induction of general anesthesia, she was placed in dorsal lithotomy position. I then we nt into the bladder with a 21-Vietnamese rigid cystourethroscope, grabbed the existing stent from the left ureteral orifice, pulled it out the meatus, advanced a wire up the stent then backloaded the wire up the stent, I then advanced an access sheath up the wire and then __ __ went up the ureteroscope, the access sheath fell out of the ureter, so I decided to just go in without an access sheath, went into the bladder with a ureteroscope. I was able to engage the distal ureter quite easily and it is wide open and patent. I ran the ureteroscope up the ureter on the left side, encountered the stone in the proximal ureter. The stone was then lasered into little tiny pieces. After successfully lasering the stone, all little tiny pieces ____ were in the kidney I used a 270-micron laser ener gy fibers from 400 joules to 700 joules at a rate of 5-8 joules. Once in the kidney, I did a pyeloscopy, inspected the upper pole, the mid pole and the lower pole, again I did not find any other st ones in the kidney. There was calcification on the CAT scan, but was not sure if this is really a stone or just a renal calcification, so after inspecting the kidney completely, I then went back down the ureter. Did not see any stones along the ureter, worked all way down out the ureter. No problems in the ureter, no irritation, no trauma to the ureter. I then advanced a wire up on the left side , put a stent and left the string on the stent for easy extraction. Justo Bowles MD T: NTS JOB: [id number] 12/19/13 0743 <Electronically signed by Justo Bowles MD> Date Justo Bowles MD CC: Audrey Law DO; Justo Bowles MD Date Dictated: 12/18/13 1430 Date Transcribed: 12/18/13 143 Instructional Technology Specialist: Signed 18-Dec-2013 Operative Report Result: Comments: See Note; NOTES: [facility] Medical Records Department [address] [place] [address] Operative Report 12/18/13 1428 MR#: [id number] Acct: [id number] Name: JS MEEKS Rep #: [id number] : 1945 68 From: Justo Bowles MD PCP: Audrey Law DO Status: REG SD Y Location: [place] [address] Report of Operation Date of Procedure: 12/18/13 Pre-Operative Alanna gnosis: left ureteral calculi Post-Operative Diagnosis: same Surgery/Procedure Performed:: left ureteroscopy and laser lithotripsy of stone. left stent placement. Type of Anesthesia:: General Anest hesiologist: Jossue Leiva Specimen's removed: none Drains: 6fr x 24cm stent Estimated Blood Loss: none Fluids Replaced: none - Admit VTE Documentation VTE Present on Admission: Yes VTE Mechan De vice Prophylaxis: Calf SCD-Sequential Compression Device VTE Pharm Prophylaxis ordered?: No Reason prophylaxis not ordered:: Medical contraindication, Surgical contraindication 12/18/13 1429 &# 60;Electronically signed by Justo Bowles MD> Date Justo Bowles MD CC: Audrey Law DO; Justo Bowles MD Signed 18-Dec-2013 Discharge Instruction Result: Comments: See Note; NOTES: [facility] Medical Records Department [address] [place] [address] Discharge Instruction 12/18/13 1343 MR#: [id number] Acct: [id number] Name: JS MEEKS Rep #: [id number] : 1945 68 From: Justo Bowles MD PCP: Audrey Law DO Status: REG [facility] Discharge Diet: No Restrictions Discharge Activity: Return to Normal Activity, May No t Drive - for 2 days. Return to work on:: 12/21/13 - if pain free May shower in (days): 1 Call your doctor if you observe: Fever of 101 or Higher, Uncontrolled pain Allergies/Adverse Reactions: All ergies Minocycline HCl [From Minocin] Adverse Reaction (Verified 12/04/13 12:37) Other Skin Cleanser Combination No.4 [From Minocin] Adverse Reaction (Verified 12:37) Other Sulfa (Sulfon amide Antibiotics) Adverse Reaction (Verified 12/04/13 12:37) Other Medications to take at Discharge Atorvastatin Calcium [Lipitor] 10 mg PO DAILY Ca Carbonate/Vitamin D3/Vit K [Citracal Soft Renita w] 1 each PO DAILY Cyanocobalamin (Vitamin B-12) [Vitamin B-12] 500 mcg SL DAILY Ergocalciferol [Vitamin D] 50,000 unit PO Q7D Folic Acid 0.8 mg PO DAILY Ibandronate Sodium [Boniva] 150 mg PO Q30D Metoprolol Tartrate [Lopressor (Beta Eric)] 25 mg PO DAILY Omeprazole [Prilosec] 20 mg PO DAILY Albuterol Inhaler [Ventolin Hfa] 1 - 2 puff INHALATION Q4H PRN PRN #1 inhaler Benzonatate [Tessalon Perle] 100 mg PO 4X/DAY PRN PRN #30 capsule Cyclobenzaprine [Flexeril] 5 - 10 mg PO TID #30 tablet Ciprofloxacin [Cipro] 500 mg PO BID #6 tablet Oxycodone HCl/Acetaminophen [Percocet 5/325] 1 - 2 tab let PO Q4H PRN PRN #14 tablet Phenazopyridine [Pyridium] 100 mg PO TID #10 tablet The following prescriptions were given: Oxycodone HCl/Acetaminophen [Percocet 5/325] 1 - 2 tablet PO Q4H PRN PRN # 14 tablet PRN Reason: Pain Ciprofloxacin [Cipro] 500 mg PO BID #6 tablet Phenazopyridine [Pyridium] 100 mg PO TID #10 tablet Please Follow Up With: Justo Bowles When: please call to make an appointment, next week with an xray 12/18/13 1344 <Electronically signed by Justo Bowles MD> Date Justo Bowles MD CC: Audrey Law DO 04-Dec-2013 Abdomen/Pelvis without Cont Result: Comments: See Note; NOTES: [facility] Imaging Services [address] [place] [address] CAT Scan Report MR#: [id number] Acct: [id number] Name: JS MEEKS Rep #: [id number] : 1945 F 68 From: Corey Saldaña MD PCP: Audrey Law DO Status: REG CLI Study: Abdomen/Pelvis without Cont Date of Exam: 12/04/13 Exam# [id number] Ordering Dr: Brett Mata MD: CT ABDOMEN AND PELVIS WITHOUT CONTRAST REASON FOR EXAM: Female, 68 years old. Left flank pain and hematuria. RADIATION DOSAGE (If Supplied By Facility): CTDIvol = ( 10.39 ) mGy, DLP = ( 451.4 4 ) mGycm TECHNIQUE: Transaxial images were obtained from the dome of the diaphragm to the symphysis pubis without oral contrast, and without intravenous contrast. Sagittal and coronal images were r econstructed. COMPARISON: None. FINDINGS: There is a 1.2 cm x 3.5 cm linear band of density in the peripheral aspect of the left lower lobe anteriorly. This ma y represent a focal scar. The visualized portions of the heart are within normal limits. Normal liver. Normal gallbladder and extrahepatic biliary system. Normal spleen. Normal pancreas. Normal bi lateral adrenal glands. Normal right kidney. There is enlargement of the left kidney. There is evidence of left perinephric stranding. Moderate left hydronephrosis and proximal left hydroureter due to a 4 mm calculus in the midportion of the left ureter.. There is a 4.2 mm calculus in the midportion of the left kidney. Normal visualized stomach. Normal small intestine. Normal colon. The appen sandy is visualized and appears normal. There is diffuse atherosclerotic calcification of the abdominal aorta, without a demonstrated aneurysm. Normal inferior vena cava. Normal retroperitoneum. Nor mal urinary bladder. There is a small umbilical hernia containing fat. There are diffuse degenerative changes of the visualized lumbar spine. IMPRESSION: Findi ngs suggestive of scarring in the left lower lobe. Left hydronephrosis and hydroureter due to a 4 mm calculus in the midportion of the left ureter. The left kidney is engorged. There is evidence of l eft perinephric stranding. Electronically Signed: Corey Saldaña MD at 11:50 EDT Tel [phone], Service support [phone], CC: Audrey Mata MD Instructional Technology Specialist: Signed Family History Unknown Family Member Name Dates Details Family Members In General Comments: Hyperlipidemia- pituitary mass on sisters son, depression- mothers mother of leukemia Status: Active Father Comments: , HBP, high c holesterol, prostate cancer -- age 84 think from prostate cancer Status: Active Mother Comments: UC, hip fracture, Alzheimer's, HTN, hypercholesterolemia- 83- nonhealing hip fracture- Status: Active Sister 1 Comments: glaucoma Status: Active Social History Name Dates Details Alcohol Use Comments: Occasional alcohol use Status: Active Caffeine Use Comments: decaf, rare Status: Active No Drug Use Status: Active Non Smoker/No Tobacco Use Status: Active Tobacco use: Never smoker. Status: Active Smoking Status Name Dates Details Never smoker Vital Signs Date Test Result Details :25 Temperature 97.6 f Comments: Method: Temporal Pulse 69 /min Comments: Pattern: Regular Respiration Rate 16 /min Comments: Pattern: Unlabored O2 SAT 97 % Comments: Room air BP Systolic 118 mm[Hg] Comments: Patient Position: Sitting; Cuff Location: Left Arm; Cuff Size: Standard BP Diastolic 64 mm[Hg] Comments: Patient Position: Sitting; Cuff Location: Left Arm; Cuff Size: Standard Weight 145 lb Height 60.5 in Body Mass Index Calculated 27.85 kg/m2 Body Surface Area Calculated 1.64 m2 :29 Temperature 96.9 f Comments: Method: Temporal Pulse 66 /min Comments: Pattern: Regular Respiration Rate 16 /min Comments: Pattern: Unlabored BP Systolic 118 mm[Hg] Comments: Patient Position: Sitting; Cuff Location: Left Arm; Cuff Size: Standard BP Diastolic 78 mm[Hg] Comments: Patient Position: Sitting; Cuff Location: Left Arm; Cuff Size: Standard Weight 145 lb Height 60.5 in Body Mass Index Calculated 27.85 kg/m2 Body Surface Area Calculated 1.64 m2 :40 Temperature 98.2 f Comments: Method: Temporal Pulse 68 /min Comments: Pattern: Regular Respiration Rate 16 /min Comments: Pattern: Unlabored O2 SAT 93 % Comments: Room air BP Systolic 104 mm[Hg] Comments: Patient Position: Sitting; Cuff Location: Left Arm; Cuff Size: Standard BP Diastolic 68 mm[Hg] Comments: Patient Position: Sitting; Cuff Location: Left Arm; Cuff Size: Standard Weight 143 lb Height 60.5 in Body Mass Index Calculated 27.47 kg/m2 Body Surface Area Calculated 1.63 m2 :49 Temperature 98.6 f Comments: Method: Temporal Pulse 87 /min Comments: Pattern: Regular Respiration Rate 16 /min Comments: Pattern: Unlabored BP Systolic 130 mm[Hg] Comments: Patient Position: Sitting; Cuff Location: Left Arm; Cuff Size: Standard BP Diastolic 82 mm[Hg] Comments: Patient Position: Sitting; Cuff Location: Left Arm; Cuff Size: Standard Weight 143 lb Height 60.5 in Body Mass Index Calculated 27.47 kg/m2 Body Surface Area Calculated 1.63 m2 :04 Temperature 97.3 f Comments: Method: Temporal Pulse 66 /min Comments: Pattern: Regular Respiration Rate 16 /min Comments: Pattern: Unlabored BP Systolic 115 mm[Hg] Comments: Patient Position: Sitting; Cuff Location: Left Arm; Cuff Size: Standard BP Diastolic 60 mm[Hg] Comments: Patient Position: Sitting; Cuff Location: Left Arm; Cuff Size: Standard Weight 146 lb Height 60.5 in Body Mass Index Calculated 28.04 kg/m2 Body Surface Area Calculated 1.64 m2 :08 Temperature 97.3 f Comments: Method: Temporal Pulse 71 /min Comments: Pattern: Regular Respiration Rate 16 /min Comments: Pattern: Unlabored BP Systolic 122 mm[Hg] Comments: Patient Position: Sitting; Cuff Location: Left Arm; Cuff Size: Standard BP Diastolic 68 mm[Hg] Comments: Patient Position: Sitting; Cuff Location: Left Arm; Cuff Size: Standard Weight 143 lb Height 60.5 in Body Mass Index Calculated 27.47 kg/m2 Body Surface Area Calculated 1.63 m2 :00 Temperature 97.8 f Comments: Method: Temporal Pulse 65 /min Comments: Pattern: Regular Respiration Rate 16 /min Comments: Pattern: Unlabored BP Systolic 122 mm[Hg] Comments: Patient Position: Sitting; Cuff Location: Left Arm; Cuff Size: Standard BP Diastolic 78 mm[Hg] Comments: Patient Position: Sitting; Cuff Location: Left Arm; Cuff Size: Standard Weight 138 lb Height 60.5 in Body Mass Index Calculated 26.51 kg/m2 Body Surface Area Calculated 1.6 m2 :35 Temperature 97.7 f Comments: Method: Temporal Pulse 68 /min Comments: Pattern: Regular Respiration Rate 16 /min Comments: Pattern: Unlabored BP Systolic 114 mm[Hg] Comments: Patient Position: Sitting; Cuff Location: Left Arm; Cuff Size: Standard BP Diastolic 74 mm[Hg] Comments: Patient Position: Sitting; Cuff Location: Left Arm; Cuff Size: Standard Weight 138 lb Height 60.5 in Body Mass Index Calculated 26.51 kg/m2 Body Surface Area Calculated 1.6 m2 :04 Temperature 97.1 f Comments: Method: Temporal Pulse 76 /min Comments: Pattern: Regular Respiration Rate 16 /min Comments: Pattern: Unlabored O2 SAT 95 % Comments: Room air BP Systolic 126 mm[Hg] Comments: Patient Position: Sitting; Cuff Location: Left Arm; Cuff Size: Standard BP Diastolic 72 mm[Hg] Comments: Patient Position: Sitting; Cuff Location: Left Arm; Cuff Size: Standard Weight 136 lb Height 60.5 in Body Mass Index Calculated 26.12 kg/m2 Body Surface Area Calculated 1.59 m2 :16 Temperature 98.5 f Comments: Method: Temporal Pulse 90 /min Comments: Pattern: Regular Respiration Rate 16 /min Comments: Pattern: Unlabored O2 SAT 95 % Comments: Room air BP Systolic 115 mm[Hg] Comments: Patient Position: Sitting; Cuff Location: Left Arm; Cuff Size: Standard BP Diastolic 68 mm[Hg] Comments: Patient Position: Sitting; Cuff Location: Left Arm; Cuff Size: Standard Weight 136.5 lb Height 60.5 in Body Mass Index Calculated 26.22 kg/m2 Body Surface Area Calculated 1.6 m2 :28 Temperature 98.2 f Comments: Method: Temporal Pulse 92 /min Comments: Pattern: Regular Respiration Rate 16 /min Comments: Pattern: Unlabored O2 SAT 94 % Comments: Room air BP Systolic 115 mm[Hg] Comments: Patient Position: Sitting; Cuff Location: Left Arm; Cuff Size: Standard BP Diastolic 68 mm[Hg] Comments: Patient Position: Sitting; Cuff Location: Left Arm; Cuff Size: Standard Weight 141.5 lb Height 60.5 in Body Mass Index Calculated 27.18 kg/m2 Body Surface Area Calculated 1.62 m2 :06 Temperature 97.2 f Comments: Method: Temporal Pulse 79 /min Comments: Pattern: Regular Respiration Rate 16 /min Comments: Pattern: Unlabored BP Systolic 126 mm[Hg] Comments: Patient Position: Sitting; Cuff Location: Left Arm; Cuff Size: Standard BP Diastolic 68 mm[Hg] Comments: Patient Position: Sitting; Cuff Location: Left Arm; Cuff Size: Standard Weight 144.375 lb Height 60.5 in Body Mass Index Calculated 27.73 kg/m2 Body Surface Area Calculated 1.64 m2 :31 Temperature 97.6 f Comments: Method: Temporal Pulse 62 /min Comments: Pattern: Regular Respiration Rate 15 /min Comments: Pattern: Unlabored O2 SAT 96 % Comments: Room air BP Systolic 110 mm[Hg] Comments: Patient Position: Sitting; Cuff Location: Left Arm; Cuff Size: Standard BP Diastolic 78 mm[Hg] Comments: Patient Position: Sitting; Cuff Location: Left Arm; Cuff Size: Standard Weight 139 lb Height 60.5 in Body Mass Index Calculated 26.7 kg/m2 Body Surface Area Calculated 1.61 m2 :09 Temperature 96 f Pulse 70 /min Comments: Pattern: Regular Respiration Rate 16 /min Comments: Pattern: Unlabored O2 SAT 97 % Comments: Room air BP Systolic 122 mm[Hg] Comments: Patient Position: Sitting; Cuff Location: Left Arm; Cuff Size: Standard BP Diastolic 74 mm[Hg] Comments: Patient Position: Sitting; Cuff Location: Left Arm; Cuff Size: Standard Weight 140.5 lb Height 60.5 in Body Mass Index Calculated 26.99 kg/m2 Body Surface Area Calculated 1.62 m2 :23 Temperature 98.7 f Comments: Method: Temporal Pulse 87 /min Comments: Pattern: Regular Respiration Rate 16 /min Comments: Pattern: Unlabored O2 SAT 94 % Comments: Room air BP Systolic 122 mm[Hg] Comments: Patient Position: Sitting; Cuff Location: Left Arm; Cuff Size: Standard BP Diastolic 74 mm[Hg] Comments: Patient Position: Sitting; Cuff Location: Left Arm; Cuff Size: Standard Weight 135.5 lb Height 60.5 in Body Mass Index Calculated 26.03 kg/m2 Body Surface Area Calculated 1.59 m2 :10 Temperature 97 f Pulse 66 /min Comments: Pattern: Regular Respiration Rate 14 /min Comments: Pattern: Unlabored O2 SAT 95 % Comments: Room air BP Systolic 126 mm[Hg] Comments: Patient Position: Sitting; Cuff Location: Left Arm; Cuff Size: Standard BP Diastolic 84 mm[Hg] Comments: Patient Position: Sitting; Cuff Location: Left Arm; Cuff Size: Standard Weight 138.5 lb Height 60.5 in Body Mass Index Calculated 26.6 kg/m2 Body Surface Area Calculated 1.61 m2 :35 Temperature 97.6 f Comments: Method: Temporal Pulse 52 /min Comments: Pattern: Irregular Respiration Rate 18 /min Comments: Pattern: Unlabored O2 SAT 93 % Comments: Room air BP Systolic 114 mm[Hg] Comments: Patient Position: Sitting; Cuff Location: Left Arm; Cuff Size: Standard BP Diastolic 68 mm[Hg] Comments: Patient Position: Sitting; Cuff Location: Left Arm; Cuff Size: Standard Weight 137 lb Height 60.5 in Body Mass Index Calculated 26.32 kg/m2 Body Surface Area Calculated 1.6 m2 :37 Temperature 97.7 f Comments: Method: Temporal Pulse 68 /min Comments: Pattern: Regular Respiration Rate 16 /min Comments: Pattern: Unlabored O2 SAT 97 % Comments: Room air BP Systolic 116 mm[Hg] Comments: Patient Position: Sitting; Cuff Location: Left Arm; Cuff Size: Standard BP Diastolic 70 mm[Hg] Comments: Patient Position: Sitting; Cuff Location: Left Arm; Cuff Size: Standard Weight 137 lb Height 60.5 in Body Mass Index Calculated 26.32 kg/m2 Body Surface Area Calculated 1.6 m2 :13 Temperature 97.5 f Pulse 75 /min Comments: Pattern: Regular Respiration Rate 16 /min Comments: Pattern: Unlabored O2 SAT 95 % Comments: Room air BP Systolic 120 mm[Hg] Comments: Patient Position: Sitting; Cuff Location: Left Arm; Cuff Size: Standard BP Diastolic 74 mm[Hg] Comments: Patient Position: Sitting; Cuff Location: Left Arm; Cuff Size: Standard Weight 135.375 lb Height 60.5 in Body Mass Index Calculated 26 kg/m2 Body Surface Area Calculated 1.59 m2 :56 Temperature 98.5 f Comments: Method: Oral Pulse 72 /min Comments: Pattern: Regular Respiration Rate 16 /min Comments: Pattern: Unlabored BP Systolic 104 mm[Hg] Comments: Patient Position: Sitting; Cuff Location: Left Arm; Cuff Size: Standard BP Diastolic 60 mm[Hg] Comments: Patient Position: Sitting; Cuff Location: Left Arm; Cuff Size: Standard Weight 135 lb Height 60.5 in Body Mass Index Calculated 25.93 kg/m2 Body Surface Area Calculated 1.59 m2 :38 Temperature 97.8 f Comments: Method: Oral Pulse 72 /min Comments: Pattern: Regular Respiration Rate 16 /min Comments: Pattern: Unlabored BP Systolic 108 mm[Hg] Comments: Patient Position: Sitting; Cuff Location: Left Arm; Cuff Size: Standard BP Diastolic 82 mm[Hg] Comments: Patient Position: Sitting; Cuff Location: Left Arm; Cuff Size: Standard Weight 135 lb Height 60.5 in Body Mass Index Calculated 25.93 kg/m2 Body Surface Area Calculated 1.59 m2 :01 Temperature 97.8 f Comments: Method: Oral Pulse 80 /min Comments: Pattern: Regular Respiration Rate 16 /min Comments: Pattern: Unlabored BP Systolic 136 mm[Hg] Comments: Patient Position: Sitting; Cuff Location: Left Arm; Cuff Size: Standard BP Diastolic 78 mm[Hg] Comments: Patient Position: Sitting; Cuff Location: Left Arm; Cuff Size: Standard Weight 138 lb Height 60.5 in Body Mass Index Calculated 26.51 kg/m2 Body Surface Area Calculated 1.6 m2 :05 Pulse 78 /min Comments: Pattern: Regular Respiration Rate 18 /min Comments: Pattern: Unlabored O2 SAT 97 % Comments: Room air BP Systolic 124 mm[Hg] Comments: Patient Position: Sitting; Cuff Location: Left Arm; Cuff Size: Large BP Diastolic 82 mm[Hg] Comments: Patient Position: Sitting; Cuff Location: Left Arm; Cuff Size: Large Weight 138 lb Height 60.5 in Body Mass Index Calculated 26.51 kg/m2 Body Surface Area Calculated 1.6 m2 :25 Temperature 98.1 f Comments: Method: Oral Pulse 72 /min Comments: Pattern: Regular Respiration Rate 16 /min O2 SAT 98 % Comments: Room air BP Systolic 122 mm[Hg] Comments: Patient Position: Sitting; Cuff Location: Left Arm; Cuff Size: Standard BP Diastolic 72 mm[Hg] Comments: Patient Position: Sitting; Cuff Location: Left Arm; Cuff Size: Standard Weight 138 lb Height 60.5 in Body Mass Index Calculated 26.51 kg/m2 Body Surface Area Calculated 1.6 m2 :47 Temperature 97 f Comments: Method: Oral Pulse 60 /min Comments: Pattern: Regular Respiration Rate 15 /min O2 SAT 97 % Comments: Room air BP Systolic 120 mm[Hg] Comments: Patient Position: Sitting; Cuff Location: Left Arm; Cuff Size: Standard BP Diastolic 70 mm[Hg] Comments: Patient Position: Sitting; Cuff Location: Left Arm; Cuff Size: Standard Weight 138 lb Height 60.5 in Body Mass Index Calculated 26.51 kg/m2 Body Surface Area Calculated 1.6 m2 :36 Temperature 97.2 f Pulse 70 /min Comments: Pattern: Regular Respiration Rate 16 /min Comments: Pattern: Unlabored BP Systolic 116 mm[Hg] Comments: Patient Position: Sitting; Cuff Location: Left Arm; Cuff Size: Standard BP Diastolic 68 mm[Hg] Comments: Patient Position: Sitting; Cuff Location: Left Arm; Cuff Size: Standard Weight 138 lb Height 60.5 in Body Mass Index Calculated 26.51 kg/m2 Body Surface Area Calculated 1.6 m2 :18 Temperature 97.5 f Comments: Method: Temporal Pulse 80 /min Comments: Pattern: Regular Respiration Rate 20 /min Comments: Pattern: Unlabored O2 SAT 98 % Comments: Room air BP Systolic 114 mm[Hg] Comments: Patient Position: Sitting; Cuff Location: Left Arm; Cuff Size: Standard BP Diastolic 62 mm[Hg] Comments: Patient Position: Sitting; Cuff Location: Left Arm; Cuff Size: Standard Weight 136 lb Height 60.5 in Body Mass Index Calculated 26.12 kg/m2 Body Surface Area Calculated 1.59 m2 :58 Temperature 99.3 f Comments: Method: Oral Pulse 78 /min Comments: Pattern: Regular Respiration Rate 18 /min Comments: Pattern: Unlabored O2 SAT 96 % Comments: Room air BP Systolic 100 mm[Hg] Comments: Patient Position: Sitting; Cuff Location: Left Arm; Cuff Size: Standard BP Diastolic 62 mm[Hg] Comments: Patient Position: Sitting; Cuff Location: Left Arm; Cuff Size: Standard Weight 136 lb Height 60.5 in Body Mass Index Calculated 26.12 kg/m2 Body Surface Area Calculated 1.59 m2 :00 Comments: supine: 124/82 P 72 no dizzinesssittin/78 P 79 no dizzinessstandin/78 P 79 Temperature 97.1 f Pulse 74 /min Comments: Pattern: Regular Respiration Rate 16 /min Comments: Pattern: Unlabored BP Systolic 122 mm[Hg] Comments: Patient Position: Sitting; Cuff Location: Left Arm; Cuff Size: Standard BP Diastolic 88 mm[Hg] Comments: Patient Position: Sitting; Cuff Location: Left Arm; Cuff Size: Standard Weight 136 lb Height 60.5 in Body Mass Index Calculated 26.12 kg/m2 Body Surface Area Calculated 1.59 m2 :29 Pulse 67 /min Comments: Pattern: Regular Respiration Rate 18 /min Comments: Pattern: Unlabored O2 SAT 97 % Comments: Room air BP Systolic 116 mm[Hg] Comments: Patient Position: Sitting; Cuff Location: Left Arm; Cuff Size: Standard BP Diastolic 64 mm[Hg] Comments: Patient Position: Sitting; Cuff Location: Left Arm; Cuff Size: Standard Weight 131 lb Height 60.5 in Body Mass Index Calculated 25.16 kg/m2 Body Surface Area Calculated 1.57 m2 :16 Temperature 97.9 f Pulse 80 /min Comments: Pattern: Regular Respiration Rate 16 /min Comments: Pattern: Unlabored BP Systolic 120 mm[Hg] Comments: Patient Position: Sitting; Cuff Location: Left Arm; Cuff Size: Standard BP Diastolic 90 mm[Hg] Comments: Patient Position: Sitting; Cuff Location: Left Arm; Cuff Size: Standard Weight 131 lb Height 60.5 in Body Mass Index Calculated 25.16 kg/m2 Body Surface Area Calculated 1.57 m2 :45 Temperature 98.1 f Comments: Method: Oral Pulse 64 /min Comments: Pattern: Regular Respiration Rate 16 /min O2 SAT 96 % Comments: Room air BP Systolic 138 mm[Hg] Comments: Patient Position: Sitting; Cuff Location: Left Arm; Cuff Size: Standard BP Diastolic 78 mm[Hg] Comments: Patient Position: Sitting; Cuff Location: Left Arm; Cuff Size: Standard Weight 134 lb Height 60.5 in Body Mass Index Calculated 25.74 kg/m2 Body Surface Area Calculated 1.58 m2 :51 Temperature 97 f Pulse 68 /min Comments: Pattern: Regular Respiration Rate 16 /min Comments: Pattern: Unlabored BP Systolic 118 mm[Hg] Comments: Patient Position: Sitting; Cuff Location: Left Arm; Cuff Size: Standard BP Diastolic 86 mm[Hg] Comments: Patient Position: Sitting; Cuff Location: Left Arm; Cuff Size: Standard Weight 134 lb Height 60.5 in Body Mass Index Calculated 25.74 kg/m2 Body Surface Area Calculated 1.58 m2 :42 Temperature 97.2 f Pulse 72 /min Comments: Pattern: Regular Respiration Rate 16 /min Comments: Pattern: Unlabored BP Systolic 100 mm[Hg] Comments: Patient Position: Sitting; Cuff Location: Left Arm; Cuff Size: Standard BP Diastolic 70 mm[Hg] Comments: Patient Position: Sitting; Cuff Location: Left Arm; Cuff Size: Standard Weight 134 lb Height 60.5 in Body Mass Index Calculated 25.74 kg/m2 Body Surface Area Calculated 1.58 m2 :30 Temperature 97.6 f Pulse 56 /min Comments: Pattern: Regular Respiration Rate 16 /min Comments: Pattern: Unlabored BP Systolic 104 mm[Hg] Comments: Patient Position: Sitting; Cuff Location: Left Arm; Cuff Size: Standard BP Diastolic 74 mm[Hg] Comments: Patient Position: Sitting; Cuff Location: Left Arm; Cuff Size: Standard Weight 132 lb Height 60.5 in Body Mass Index Calculated 25.35 kg/m2 Body Surface Area Calculated 1.57 m2 :10 Pulse 76 /min Comments: Pattern: Regular Respiration Rate 20 /min Comments: Pattern: Unlabored O2 SAT 96 % Comments: Room air BP Systolic 128 mm[Hg] Comments: Patient Position: Sitting; Cuff Location: Left Arm; Cuff Size: Large BP Diastolic 82 mm[Hg] Comments: Patient Position: Sitting; Cuff Location: Left Arm; Cuff Size: Large Weight 133 lb Height 61 in Body Mass Index Calculated 25.13 kg/m2 Body Surface Area Calculated 1.59 m2 :31 Temperature 96.9 f Pulse 70 /min Comments: Pattern: Regular Respiration Rate 16 /min Comments: Pattern: Unlabored BP Systolic 112 mm[Hg] Comments: Patient Position: Sitting; Cuff Location: Left Arm; Cuff Size: Standard BP Diastolic 70 mm[Hg] Comments: Patient Position: Sitting; Cuff Location: Left Arm; Cuff Size: Standard Weight 133 lb Height 61 in Body Mass Index Calculated 25.13 kg/m2 Body Surface Area Calculated 1.59 m2 :53 Temperature 98.1 f Comments: Method: Oral Pulse 68 /min Comments: Pattern: Regular Respiration Rate 16 /min BP Systolic 124 mm[Hg] Comments: Patient Position: Sitting; Cuff Location: Left Arm; Cuff Size: Standard BP Diastolic 78 mm[Hg] Comments: Patient Position: Sitting; Cuff Location: Left Arm; Cuff Size: Standard Weight 136 lb Height 61 in Body Mass Index Calculated 25.7 kg/m2 Body Surface Area Calculated 1.6 m2 :40 Temperature 97 f Pulse 64 /min Comments: Pattern: Regular Respiration Rate 16 /min Comments: Pattern: Unlabored BP Systolic 122 mm[Hg] Comments: Patient Position: Sitting; Cuff Location: Left Arm; Cuff Size: Standard BP Diastolic 82 mm[Hg] Comments: Patient Position: Sitting; Cuff Location: Left Arm; Cuff Size: Standard Weight 136 lb Height 61 in Body Mass Index Calculated 25.7 kg/m2 Body Surface Area Calculated 1.6 m2 :43 Temperature 97.6 f Comments: Method: Temporal Pulse 72 /min Comments: Pattern: Regular Respiration Rate 16 /min Comments: Pattern: Unlabored O2 SAT 98 % Comments: Room air BP Systolic 132 mm[Hg] Comments: Patient Position: Sitting; Cuff Location: Left Arm; Cuff Size: Standard BP Diastolic 74 mm[Hg] Comments: Patient Position: Sitting; Cuff Location: Left Arm; Cuff Size: Standard Weight 140 lb Height 61 in Body Mass Index Calculated 26.45 kg/m2 Body Surface Area Calculated 1.62 m2 :25 Temperature 96 f Pulse 72 /min Comments: Pattern: Regular Respiration Rate 16 /min Comments: Pattern: Unlabored BP Systolic 110 mm[Hg] Comments: Patient Position: Sitting; Cuff Location: Left Arm; Cuff Size: Standard BP Diastolic 72 mm[Hg] Comments: Patient Position: Sitting; Cuff Location: Left Arm; Cuff Size: Standard Weight 140 lb Height 61 in Body Mass Index Calculated 26.45 kg/m2 Body Surface Area Calculated 1.62 m2 :00 Temperature 98.4 f Pulse 68 /min Comments: Pattern: Regular Respiration Rate 16 /min Comments: Pattern: Unlabored BP Systolic 118 mm[Hg] Comments: Patient Position: Sitting; Cuff Location: Left Arm; Cuff Size: Large BP Diastolic 80 mm[Hg] Comments: Patient Position: Sitting; Cuff Location: Left Arm; Cuff Size: Large Weight 140 lb Height 61 in Body Mass Index Calculated 26.45 kg/m2 Body Surface Area Calculated 1.62 m2 :36 Temperature 98.9 f Comments: Method: Oral Pulse 100 /min Comments: Pattern: Regular Respiration Rate 20 /min O2 SAT 97 % Comments: Room air BP Systolic 132 mm[Hg] Comments: Patient Position: Sitting; Cuff Location: Left Arm; Cuff Size: Standard BP Diastolic 70 mm[Hg] Comments: Patient Position: Sitting; Cuff Location: Left Arm; Cuff Size: Standard Weight 137 lb Height 61 in Body Mass Index Calculated 25.89 kg/m2 Body Surface Area Calculated 1.61 m2 :44 Temperature 98.3 f Pulse 66 /min Comments: Pattern: Regular Respiration Rate 16 /min Comments: Pattern: Unlabored BP Systolic 126 mm[Hg] Comments: Patient Position: Sitting; Cuff Location: Left Arm; Cuff Size: Standard BP Diastolic 80 mm[Hg] Comments: Patient Position: Sitting; Cuff Location: Left Arm; Cuff Size: Standard Weight 137 lb Height 61 in Body Mass Index Calculated 25.89 kg/m2 Body Surface Area Calculated 1.61 m2 :10 Temperature 98.1 f Comments: Method: Oral Pulse 82 /min Comments: Pattern: Regular Respiration Rate 16 /min BP Systolic 110 mm[Hg] Comments: Patient Position: Sitting; Cuff Location: Left Arm; Cuff Size: Standard BP Diastolic 72 mm[Hg] Comments: Patient Position: Sitting; Cuff Location: Left Arm; Cuff Size: Standard Weight 137 lb Height 61 in Body Mass Index Calculated 25.89 kg/m2 Body Surface Area Calculated 1.61 m2 :07 Temperature 95.8 f Pulse 72 /min Comments: Pattern: Regular Respiration Rate 16 /min Comments: Pattern: Unlabored BP Systolic 108 mm[Hg] Comments: Patient Position: Sitting; Cuff Location: Left Arm; Cuff Size: Large BP Diastolic 76 mm[Hg] Comments: Patient Position: Sitting; Cuff Location: Left Arm; Cuff Size: Large Weight 137 lb Height 61 in Body Mass Index Calculated 25.89 kg/m2 Body Surface Area Calculated 1.61 m2 :52 Pulse 64 /min Comments: Pattern: Regular Respiration Rate 16 /min Comments: Pattern: Unlabored BP Systolic 110 mm[Hg] Comments: Patient Position: Sitting; Cuff Location: Left Arm; Cuff Size: Standard BP Diastolic 72 mm[Hg] Comments: Patient Position: Sitting; Cuff Location: Left Arm; Cuff Size: Standard Weight 139 lb Height 61 in Body Mass Index Calculated 26.26 kg/m2 Body Surface Area Calculated 1.62 m2 :06 Temperature 97.6 f Pulse 88 /min Comments: Pattern: Regular Respiration Rate 16 /min Comments: Pattern: Unlabored BP Systolic 114 mm[Hg] Comments: Patient Position: Sitting; Cuff Location: Left Arm; Cuff Size: Standard BP Diastolic 70 mm[Hg] Comments: Patient Position: Sitting; Cuff Location: Left Arm; Cuff Size: Standard Weight 139 lb Height 61 in Body Mass Index Calculated 26.26 kg/m2 Body Surface Area Calculated 1.62 m2 :29 Temperature 98.3 f Comments: Method: Oral Pulse 68 /min Comments: Pattern: Regular O2 SAT 95 % Comments: Room air BP Systolic 122 mm[Hg] Comments: Patient Position: Sitting; Cuff Location: Left Arm; Cuff Size: Standard BP Diastolic 74 mm[Hg] Comments: Patient Position: Sitting; Cuff Location: Left Arm; Cuff Size: Standard Weight 137.4375 lb Height 61 in Body Mass Index Calculated 25.97 kg/m2 Body Surface Area Calculated 1.61 m2 :46 Pulse 64 /min Comments: Pattern: Regular Respiration Rate 18 /min Comments: Pattern: Unlabored BP Systolic 122 mm[Hg] Comments: Patient Position: Sitting; Cuff Location: Left Arm; Cuff Size: Large BP Diastolic 68 mm[Hg] Comments: Patient Position: Sitting; Cuff Location: Left Arm; Cuff Size: Large Weight 137.4375 lb Height 61 in Body Mass Index Calculated 25.97 kg/m2 Body Surface Area Calculated 1.61 m2 :18 Temperature 97.8 f Pulse 76 /min Comments: Pattern: Regular Respiration Rate 16 /min Comments: Pattern: Unlabored BP Systolic 110 mm[Hg] Comments: Patient Position: Sitting; Cuff Location: Left Arm; Cuff Size: Large BP Diastolic 84 mm[Hg] Comments: Patient Position: Sitting; Cuff Location: Left Arm; Cuff Size: Large Weight 137 lb Height 61 in Body Mass Index Calculated 25.89 kg/m2 Body Surface Area Calculated 1.61 m2 :58 Temperature 97.3 f Pulse 56 /min Comments: Pattern: Regular Respiration Rate 16 /min Comments: Pattern: Unlabored BP Systolic 100 mm[Hg] Comments: Patient Position: Sitting; Cuff Location: Left Arm; Cuff Size: Large BP Diastolic 64 mm[Hg] Comments: Patient Position: Sitting; Cuff Location: Left Arm; Cuff Size: Large Weight 139 lb Height 61 in Body Mass Index Calculated 26.26 kg/m2 Body Surface Area Calculated 1.62 m2 :04 Temperature 97.8 f Pulse 64 /min Comments: Pattern: Regular Respiration Rate 16 /min Comments: Pattern: Unlabored BP Systolic 126 mm[Hg] Comments: Patient Position: Sitting; Cuff Location: Left Arm; Cuff Size: Large BP Diastolic 88 mm[Hg] Comments: Patient Position: Sitting; Cuff Location: Left Arm; Cuff Size: Large Weight 135 lb Height 61 in Body Mass Index Calculated 25.51 kg/m2 Body Surface Area Calculated 1.6 m2 :50 Temperature 98.7 f Comments: Method: Oral Pulse 72 /min Comments: Pattern: Regular Respiration Rate 16 /min Comments: Pattern: Unlabored BP Systolic 122 mm[Hg] Comments: Patient Position: Sitting; Cuff Location: Left Arm; Cuff Size: Standard BP Diastolic 80 mm[Hg] Comments: Patient Position: Sitting; Cuff Location: Left Arm; Cuff Size: Standard Weight 141 lb Height 61 in Body Mass Index Calculated 26.64 kg/m2 Body Surface Area Calculated 1.63 m2 :06 Temperature 97.2 f Comments: Method: Oral Pulse 64 /min Comments: Pattern: Regular Respiration Rate 16 /min BP Systolic 110 mm[Hg] Comments: Patient Position: Sitting; Cuff Location: Left Arm; Cuff Size: Standard BP Diastolic 70 mm[Hg] Comments: Patient Position: Sitting; Cuff Location: Left Arm; Cuff Size: Standard Weight 141 lb Height 61 in Body Mass Index Calculated 26.64 kg/m2 Body Surface Area Calculated 1.63 m2 :03 Temperature 97.6 f Pulse 62 /min Comments: Pattern: Regular Respiration Rate 16 /min Comments: Pattern: Unlabored BP Systolic 114 mm[Hg] Comments: Patient Position: Sitting; Cuff Location: Left Arm; Cuff Size: Standard BP Diastolic 66 mm[Hg] Comments: Patient Position: Sitting; Cuff Location: Left Arm; Cuff Size: Standard Weight 141 lb Height 61 in Body Mass Index Calculated 26.64 kg/m2 Body Surface Area Calculated 1.63 m2 :41 Temperature 96.2 f Pulse 56 /min Comments: Pattern: Regular Respiration Rate 18 /min Comments: Pattern: Unlabored BP Systolic 120 mm[Hg] Comments: Patient Position: Sitting; Cuff Location: Left Arm; Cuff Size: Standard BP Diastolic 80 mm[Hg] Comments: Patient Position: Sitting; Cuff Location: Left Arm; Cuff Size: Standard Weight 139 lb :32 Temperature 96.7 f Comments: Method: Oral Pulse 72 /min Comments: Pattern: Regular Respiration Rate 16 /min Comments: Pattern: Unlabored BP Systolic 118 mm[Hg] Comments: Patient Position: Sitting; Cuff Location: Left Arm; Cuff Size: Standard BP Diastolic 76 mm[Hg] Comments: Patient Position: Sitting; Cuff Location: Left Arm; Cuff Size: Standard Weight 137.1875 lb :52 Temperature 97.6 f Comments: Method: Oral Pulse 70 /min Comments: Pattern: Regular Respiration Rate 18 /min Comments: Pattern: Unlabored BP Systolic 110 mm[Hg] Comments: Patient Position: Sitting; Cuff Location: Left Arm; Cuff Size: Standard BP Diastolic 74 mm[Hg] Comments: Patient Position: Sitting; Cuff Location: Left Arm; Cuff Size: Standard Weight 137.1875 lb :32 Pulse 68 /min Comments: Pattern: Regular Respiration Rate 18 /min Comments: Pattern: Unlabored BP Systolic 112 mm[Hg] Comments: Patient Position: Sitting; Cuff Location: Left Arm; Cuff Size: Standard BP Diastolic 82 mm[Hg] Comments: Patient Position: Sitting; Cuff Location: Left Arm; Cuff Size: Standard Weight 138 lb :38 Temperature 96.6 f Pulse 84 /min Comments: Pattern: Regular Respiration Rate 18 /min Comments: Pattern: Unlabored BP Systolic 114 mm[Hg] Comments: Patient Position: Sitting; Cuff Location: Left Arm; Cuff Size: Large BP Diastolic 68 mm[Hg] Comments: Patient Position: Sitting; Cuff Location: Left Arm; Cuff Size: Large Weight 144 lb :22 Temperature 96.9 f Comments: Method: Oral Pulse 68 /min Comments: Pattern: Regular Respiration Rate 20 /min Comments: Pattern: Unlabored BP Systolic 120 mm[Hg] Comments: Patient Position: Sitting; Cuff Location: Right Arm; Cuff Size: Standard BP Diastolic 82 mm[Hg] Comments: Patient Position: Sitting; Cuff Location: Right Arm; Cuff Size: Standard Weight 0 lb Height 0 in Head Circumference 0.00 cm :05 Pulse 74 /min Comments: Pattern: Regular Respiration Rate 18 /min Comments: Pattern: Unlabored BP Systolic 120 mm[Hg] Comments: Patient Position: Supine; Cuff Location: Left Arm; Cuff Size: Standard BP Diastolic 72 mm[Hg] Comments: Patient Position: Supine; Cuff Location: Left Arm; Cuff Size: Standard Weight 137 lb Height 63 in Body Mass Index Calculated 24.27 kg/m2 Body Surface Area Calculated 1.65 m2 Head Circumference 0.00 cm :27 Temperature 97.8 f Comments: Method: Oral Pulse 64 /min Comments: Pattern: Regular Respiration Rate 16 /min Comments: Pattern: Unlabored BP Systolic 122 mm[Hg] Comments: Patient Position: Sitting; Cuff Location: Left Arm; Cuff Size: Standard BP Diastolic 70 mm[Hg] Comments: Patient Position: Sitting; Cuff Location: Left Arm; Cuff Size: Standard Weight 0 lb Height 0 in Head Circumference 0.00 cm :17 Temperature 97 f Comments: Method: Oral Pulse 72 /min Comments: Pattern: Regular Respiration Rate 18 /min Comments: Pattern: Unlabored BP Systolic 120 mm[Hg] Comments: Patient Position: Sitting; Cuff Location: Right Arm; Cuff Size: Standard BP Diastolic 72 mm[Hg] Comments: Patient Position: Sitting; Cuff Location: Right Arm; Cuff Size: Standard Weight 136.125 lb Height 63 in Body Mass Index Calculated 24.11 kg/m2 Body Surface Area Calculated 1.64 m2 Head Circumference 0.00 cm :22 Temperature 98.1 f Comments: Method: Oral Pulse 66 /min Comments: Pattern: Regular Respiration Rate 18 /min Comments: Pattern: Unlabored BP Systolic 118 mm[Hg] Comments: Patient Position: Sitting; Cuff Location: Left Arm; Cuff Size: Standard BP Diastolic 78 mm[Hg] Comments: Patient Position: Sitting; Cuff Location: Left Arm; Cuff Size: Standard Weight 136.4375 lb Height 0 in Head Circumference 0.00 cm :23 Pulse 60 /min Comments: Pattern: Regular Respiration Rate 16 /min Comments: Pattern: Unlabored BP Systolic 114 mm[Hg] Comments: Patient Position: Sitting; Cuff Location: Left Arm; Cuff Size: Standard BP Diastolic 64 mm[Hg] Comments: Patient Position: Sitting; Cuff Location: Left Arm; Cuff Size: Standard Weight 133.0625 lb Height 63 in Body Mass Index Calculated 23.57 kg/m2 Body Surface Area Calculated 1.63 m2 Head Circumference 0.00 cm :37 Temperature 97.9 f Comments: Method: Oral Pulse 68 /min Comments: Pattern: Regular Respiration Rate 18 /min Comments: Pattern: Unlabored O2 SAT 94 % Comments: Room air BP Systolic 120 mm[Hg] Comments: Patient Position: Sitting; Cuff Location: Right Arm; Cuff Size: Standard BP Diastolic 64 mm[Hg] Comments: Patient Position: Sitting; Cuff Location: Right Arm; Cuff Size: Standard Weight 134 lb Height 0 in Head Circumference 0.00 cm :58 Temperature 98.1 f Comments: Method: Undefined Pulse 80 /min Comments: Pattern: Regular Respiration Rate 16 /min Comments: Pattern: Undefined BP Systolic 126 mm[Hg] Comments: Patient Position: Sitting; Cuff Location: Right Arm; Cuff Size: Standard BP Diastolic 80 mm[Hg] Comments: Patient Position: Sitting; Cuff Location: Right Arm; Cuff Size: Standard Weight 134 lb Height 0 in Head Circumference 0.00 cm :15 Temperature 97.7 f Comments: Method: Oral Pulse 76 /min Comments: Pattern: Regular Respiration Rate 20 /min Comments: Pattern: Unlabored BP Systolic 130 mm[Hg] Comments: Patient Position: Sitting; Cuff Location: Right Arm; Cuff Size: Standard BP Diastolic 74 mm[Hg] Comments: Patient Position: Sitting; Cuff Location: Right Arm; Cuff Size: Standard Weight 133 lb Height 0 in Head Circumference 0.00 cm :48 Temperature 97.7 f Comments: Method: Oral Pulse 72 /min Comments: Pattern: Regular Respiration Rate 16 /min Comments: Pattern: Unlabored BP Systolic 126 mm[Hg] Comments: Patient Position: Sitting; Cuff Location: Left Arm; Cuff Size: Standard BP Diastolic 76 mm[Hg] Comments: Patient Position: Sitting; Cuff Location: Left Arm; Cuff Size: Standard Weight 138.4375 lb Height 0 in Head Circumference 0.00 cm :53 Temperature 97.4 f Comments: Method: Oral Pulse 80 /min Comments: Pattern: Regular Respiration Rate 16 /min Comments: Pattern: Unlabored BP Systolic 110 mm[Hg] Comments: Patient Position: Sitting; Cuff Location: Left Arm; Cuff Size: Standard BP Diastolic 64 mm[Hg] Comments: Patient Position: Sitting; Cuff Location: Left Arm; Cuff Size: Standard Weight 139.1875 lb Height 0 in Head Circumference 0.00 cm :53 Pulse 70 /min Comments: Pattern: Regular Respiration Rate 20 /min Comments: Pattern: Undefined BP Systolic 114 mm[Hg] Comments: Patient Position: Undefined; Cuff Location: Undefined; Cuff Size: Undefined BP Diastolic 78 mm[Hg] Comments: Patient Position: Undefined; Cuff Location: Undefined; Cuff Size: Undefined Weight 140 lb Height 0 in Head Circumference 0.00 cm [id number] Temperature 97.8 f Comments: Method: Oral Pulse 60 /min Comments: Pattern: Regular Respiration Rate 20 /min Comments: Pattern: Unlabored BP Systolic 120 mm[Hg] Comments: Patient Position: Sitting; Cuff Location: Left Arm; Cuff Size: Standard BP Diastolic 80 mm[Hg] Comments: Patient Position: Sitting; Cuff Location: Left Arm; Cuff Size: Standard Weight 140 lb Height 0 in Head Circumference 0.00 cm Results Date Description Value Details :07 Comprehensive Metabolic Profil Comments: DR LAW ORDERED PTHIN/YUMI BELCHER ORDERED [facility] [id number] [place], [place], [id number] GAP 7 (Normal) Range: 5-15 CO2 31.0 mmol/L (Normal) Range: 21.0-32.0 CL 104 mmol/L (Normal) Range: 98-107 K 4.1 mmol/L (Normal) Range: 3.5-5.1 NA 142 mmol/L (Normal) Range: 136-145 T BILI 0.70 mg/dL (Normal) Range: 0.20-1.00 ALT 50 U/L (Normal) Range: 13-56 ALK P 65 U/L (Normal) Range: 45-117 AST 21 U/L (Normal) Range: 15-37 CA 9.6 mg/dL (Normal) Range: 8.5-10.1 A/G 1.1 {RATIO} (Normal) Range: 0.9-2.4 GLOB 3.6 g/dL (Normal) Range: 2.2-4.2 ALB 3.9 g/dL (Normal) Range: 3.2-5.0 T PROT 7.5 g/dL (Normal) Range: 6.4-8.2 BUN/CRE 31.3 {RATIO} (Abnormal) Range: 10-20 EST GFR - AA 118 mL/min (Normal) Comments: GFR Calc EST GFR 97 mL/min (Normal) Comments: Non- GFR Calc CREAT,SERUM 0.64 mg/dL (Normal) Range: 0.55-1.02 Comments: The validity of the calculated GFR AND GFRAA in patients over70 years has not been determined. Clinical correlation isessential. BUN 20 mg/dL (Abnormal) Range: 7-18 GLU 98 mg/dL (Normal) Range: 74-106 Comments: Please note revised GLUCOSE reference range /02/2018. 18-Nyv-56966:07 PTHIN 78.1 pg/mL (Normal) Comments: DR LAW ORDERED PTHIN/CADR BRANDY ORDERED CMP/PTHIN/[facility] [id number] [place], [address] Range: 18.4-80.1 :07 Vitamin D,25 Hydroxy Comments: DR LAW ORDERED PTHIN/NIYAR BRANDY ORDERED [facility] [id number] [place], [id number] Vitamin D 25-OH 68.3 ng/mL (Normal) Range: 29.95-100.01 Comments: Vitamin D 25(OH) Status Range Deficiency <20 ng/mL (50nmol/L) Insuffciency 20 - 30 ng/mL (50 - 75 nmol/L) Sufficiency 30 - 100 ng/mL (75 - 250 nmol/L) Toxicity >100 ng/mL (>250 nmol/L) 47-Bdq-43150:30 Culture, Urine Comments: [facility] [id number] [place], [place], [address] CUUR See Note (Normal) Comments: Urine CultureORGANISM 1: Mixed Gram Positive OrganismsColony Count 1000-10,000MIX CULTURE Mixed contaminants. Submit a new specimen if indicated. [id number]-Fav-[id number]:50 HGB A1C ([id number]) Comments: PATIENT WAS FASTINGPERFORMED BY: [facility] [id number] [facility] [id number] Hemoglobin A1c 5.6 % (Normal) Range: 4.8-5.6 Comments: . Prediabetes: 5.7 - 6.4 Diabetes: >6.4 Glycemic control for adults with diabetes: <7.0 3-Obr-[id number]:50 VITAMIN B-12 (CYANOCOBALAMIN) Comments: PATIENT WAS FASTINGPERFORMED BY: ROMEO StackBlazeox Exuru![facility] [id number] ([id number]) Vitamin B12 626 pg/mL (Normal) Range: 232-1245 6-Yyn-564303:50 METABOLIC PANEL, COMPREHENSIVE Comments: PATIENT WAS FASTINGPERFORMED BY: Ateeda70 [facility] [id number] ([id number]) ALT (SGPT) 22 [iU]/L (Normal) Range: 0-32 AST (SGOT) 20 [iU]/L (Normal) Range: 0-40 Alkaline Phosphatase 51 [iU]/L (Normal) Range: 39-117 Bilirubin, Total 0.6 mg/dL (Normal) Range: 0.0-1.2 A/G Ratio 1.8 (Normal) Range: 1.2-2.2 Globulin, Total 2.5 g/dL (Normal) Range: 1.5-4.5 Albumin 4.6 g/dL (Normal) Range: 3.5-4.8 Protein, Total 7.1 g/dL (Normal) Range: 6.0-8.5 Calcium 10.4 mg/dL (Abnormal) Range: 8.7-10.3 Carbon Dioxide, Total 27 mmol/L (Normal) Range: 20-29 Chloride 100 mmol/L (Normal) Range: 96-106 Potassium 4.0 mmol/L (Normal) Range: 3.5-5.2 Sodium 142 mmol/L (Normal) Range: 134-144 BUN/Creatinine Ratio 35 (Abnormal) Range: 12-28 eGFR If Africn Am 103 mL/min/1.73 (Normal) eGFR If NonAfricn Am 89 mL/min/1.73 (Normal) Creatinine 0.66 mg/dL (Normal) Range: 0.57-1.00 BUN 23 mg/dL (Normal) Range: 8-27 Glucose 96 mg/dL (Normal) Range: 65-99 8-Bxf-548245:50 Vitamin D Hydroxy (85930) Comments: PATIENT WAS FASTINGPERFORMED BY: [employer] [facility] [id number] Vitamin D, 25-Hydroxy 51.3 ng/mL (Normal) Range: 30.0-100.0 Comments: Vitamin D deficiency has been defined by the [place] [employer] and an Endocrine Society practice guideline as alevel of serum 25-OH vitamin D less than 20 ng/mL (1,2).The Endocrine Society went on to further define vitamin Dinsufficiency as a level between 21 and 29 ng/mL (2).1. IOM ([place] [employer]). 2010. Dietary reference intakes for calcium and D. [place]: The National Academies Press.2. Robinson MF, Keila AGUERO, Bruce ROBLES, et al. Evaluation, treatment, and prevention of vitamin D deficiency: an Endocrine Society clinical practice guideline. JCEM. 2010; 96(7):1911-30. 0-Uik-[id number]:50 LIPID PANEL (38778) Comments: PATIENT WAS FASTINGPERFORMED BY: [facility] [id number] [facility] [id number]; review on 04/29 LDL/HDL Ratio 2.6 {ratio} (Normal) Range: 0.0-3.2 Comments: LDL/HDL Ratio Men Women 1/2 Avg.Risk 1.0 1.5 Av g.Risk 3.6 3.2 2X Avg.Risk 6.2 5.0 3X Avg.Risk 8.0 6.1 LDL Cholesterol Calc 123 mg/dL (Abnormal) Range: 0-99 VLDL Cholesterol Nahid 21 mg/dL (Normal) Range: 5-40 HDL Cholesterol 47 mg/dL (Normal) Triglycerides 106 mg/dL (Normal) Range: 0-149 Cholesterol, Total 191 mg/dL (Normal) Range: 100-199 18-Nov-20179:16 Comprehensive Metabolic Profil Comments: [facility] [id number] [place], [place], [id number] GAP 6 (Normal) Range: 5-15 CO2 31.0 mmol/L (Normal) Range: 21.0-32.0 CL 104 mmol/L (Normal) Range: 98-107 K 3.7 mmol/L (Normal) Range: 3.5-5.1 NA 141 mmol/L (Normal) Range: 136-145 T BILI 0.60 mg/dL (Normal) Range: 0.20-1.00 ALT 29 U/L (Normal) Range: 13-56 Comments: Please note revised ALT reference range etwqqylfv01/28/2018. ALK P 59 U/L (Normal) Range: 45-117 AST 15 U/L (Normal) Range: 15-37 CA 9.5 mg/dL (Normal) Range: 8.5-10.1 A/G 1.1 {RATIO} (Normal) Range: 0.9-2.4 GLOB 3.7 g/dL (Normal) Range: 2.2-4.2 ALB 4.0 g/dL (Normal) Range: 3.2-5.0 T PROT 7.7 g/dL (Normal) Range: 6.4-8.2 BUN/CRE 22.6 {RATIO} (Abnormal) Range: 10-20 EST GFR - AA 113 mL/min (Normal) Comments: GFR Calc EST GFR 93 mL/min (Normal) Comments: Non- GFR Calc CREAT,SERUM 0.66 mg/dL (Normal) Range: 0.55-1.02 Comments: The validity of the calculated GFR AND GFRAA in patients over70 years has not been determined. Clinical correlation isessential. BUN 15 mg/dL (Normal) Range: 7-18 GLU 94 mg/dL (Normal) Range: 74-106 Comments: Please note revised GLUCOSE reference range yxayprano50/02/2018. 18-Nov-20179:16 PTHIN 75.3 pg/mL (Normal) Comments: [facility] [id number] [place], [place], [id number] Range: 18.4-80.1 Comments: Please Note: PTH INTACT METHOD AND REFERENCE RANGE CHANGEEffective 07/31/2017. :16 Vitamin D,25 Hydroxy Comments: [facility] [id number] [place], [place], [id number] Vitamin D 25-OH 71.7 ng/mL (Normal) Range: 29.95-100.01 Comments: Vitamin D 25(OH) Status Range Deficiency <20 ng/mL (50nmol/L) Insuffciency 20 - 30 ng/mL (50 - 75 nmol/L) Sufficiency 30 - 100 ng/mL (75 - 250 nmol/L) Toxicity >100 ng/mL (>250 nmol/L) :52 HGB A1C (20318) Comments: PATIENT WAS FASTINGPERFORMED BY: [facility] HospitalVdfqcs3346 [facility] [id number] Hemoglobin A1c 5.5 % (Normal) Range: 4.8-5.6 Comments: . Pre-diabetes: 5.7 - 6.4 Diabetes: >6.4 Glycemic control for adults with diabetes: <7.0 :52 CBC W/AUTO DIFF WBC (35888) Comments: PATIENT WAS FASTINGPERFORMED BY: [facility] HospitalRbbdlv7962 [facility] [id number] Immature Grans (Abs) 0.0 {x10E3/uL} (Normal) Range: 0.0-0.1 Immature Granulocytes 0 % (Normal) Baso (Absolute) 0.0 {x10E3/uL} (Normal) Range: 0.0-0.2 Eos (Absolute) 0.3 {x10E3/uL} (Normal) Range: 0.0-0.4 Monocytes(Absolute) 0.5 {x10E3/uL} (Normal) Range: 0.1-0.9 Lymphs (Absolute) 1.9 {x10E3/uL} (Normal) Range: 0.7-3.1 Neutrophils (Absolute) 3.5 {x10E3/uL} (Normal) Range: 1.4-7.0 Basos 0 % (Normal) Eos 4 % (Normal) Monocytes 7 % (Normal) Lymphs 31 % (Normal) Neutrophils 58 % (Normal) Platelets 305 {x10E3/uL} (Normal) Range: 150-379 RDW 13.3 % (Normal) Range: 12.3-15.4 MCHC 33.7 g/dL (Normal) Range: 31.5-35.7 MCH 31.1 pg (Normal) Range: 26.6-33.0 MCV 92 fL (Normal) Range: 79-97 Hematocrit 43.3 % (Normal) Range: 34.0-46.6 Hemoglobin 14.6 g/dL (Normal) Range: 11.1-15.9 RBC 4.70 {x10E6/uL} (Normal) Range: 3.77-5.28 WBC 6.2 {x10E3/uL} (Normal) Range: 3.4-10.8 :52 METABOLIC PANEL, COMPREHENSIVE Comments: PATIENT WAS FASTINGPERFORMED BY: [facility] HospitalNsjqdf8655 [facility] [id number] ([id number]) ALT (SGPT) 20 [iU]/L (Normal) Range: 0-32 AST (SGOT) 21 [iU]/L (Normal) Range: 0-40 Alkaline Phosphatase 51 [iU]/L (Normal) Range: 39-117 Bilirubin, Total 0.6 mg/dL (Normal) Range: 0.0-1.2 A/G Ratio 2.0 (Normal) Range: 1.2-2.2 Globulin, Total 2.3 g/dL (Normal) Range: 1.5-4.5 Albumin 4.5 g/dL (Normal) Range: 3.5-4.8 Protein, Total 6.8 g/dL (Normal) Range: 6.0-8.5 Calcium 10.2 mg/dL (Normal) Range: 8.7-10.3 Carbon Dioxide, Total 27 mmol/L (Normal) Range: 18-29 Chloride 100 mmol/L (Normal) Range: 96-106 Potassium 3.7 mmol/L (Normal) Range: 3.5-5.2 Sodium 143 mmol/L (Normal) Range: 134-144 BUN/Creatinine Ratio 20 (Normal) Range: 12-28 eGFR If Africn Am 101 mL/min/1.73 (Normal) eGFR If NonAfricn Am 88 mL/min/1.73 (Normal) Creatinine 0.69 mg/dL (Normal) Range: 0.57-1.00 BUN 14 mg/dL (Normal) Range: 8-27 Glucose 100 mg/dL (Abnormal) Range: 65-99 :52 LIPID PANEL (44674) Comments: PATIENT WAS FASTINGPERFORMED BY: [facility] HospitalMpmnjt4004 [facility] [id number]; review at upcoming appt LDL/HDL Ratio 2.3 {ratio} (Normal) Range: 0.0-3.2 Comments: LDL/HDL Ratio Men Women 1/2 Avg.Risk 1.0 1.5 Av g.Risk 3.6 3.2 2X Avg.Risk 6.2 5.0 3X Avg.Risk 8.0 6.1 LDL Cholesterol Calc 109 mg/dL (Abnormal) Range: 0-99 VLDL Cholesterol Nahid 21 mg/dL (Normal) Range: 5-40 HDL Cholesterol 47 mg/dL (Normal) Triglycerides 104 mg/dL (Normal) Range: 0-149 Cholesterol, Total 177 mg/dL (Normal) Range: 100-199 01-Ljf-64069:00 24 HR Urine Creatinine Comments: [facility] [id number] [place], [place], [address] UR.CREAT/24hr 0.98 {g/24_HR} (Normal) Range: 0.70-1.90 URINE CREAT 67.40 mg/dL (Normal) UR TOTAL VOLUME 1.40 L (Normal) UR COLLECT TIME 24.0 {HOURS} (Normal) 34-Qas-56596:00 Miscellaneous Lab Procedure Comments: Test(s) Ordered: STONE RISK [id number] 24[facility] [id number] [place], [place], [address] [facility] [place]: TEST RESULT FLAG UNITS REF INTERVALKidney Stone, Urine/Saturation Urine Volume 1450 mL/24 hr 600 - 1600 Urine Volume (Preservative) 1450 mL/24 hr 600 - LAB (Normal) 1600 Calcium, Urine 13.8 mg/dL Not Estab. Calcium, Urine 200.1 100.0 - 300.0 Sodium, Urine 52 mmol/L Not Estab. Sodium, Urine TEST 75 39 - 258 Phosphorus, Urine 38.9 mg/dL Not Estab. Phosphorus, Urine 564.0 400.0 - 1300.0 Uric Acid, Urine 22.1 mg/dL Not Estab. Uric Acid, Urine 320 250 - 750 Potassium, Urine 27.9 mmol/L Not Estab. Potassium, Urine 40.5 25.0 - 125 .0 Chloride, Uri ne 42 mmol/L Not Estab. Chloride Urine 61 Low 110 - 250 Citric Acid (Citrate) 480 mg/L Not Estab. Citric Acid(Citrate) 696 320 - 1240 Oxalates, Urine 14 mg/L Not Estab. Oxalates, Urine 20 4 - 31 Magnesium, Urine 6.8 mg/dL Not Estab. Magnesi um, Ur(24 Hr) 99 12 - 293 Sulfate, Urine 9 mEq/L Not Estab. Sulfate, Urine 13 0 - 30 Cystine, Quantitative, Urine 9.15 mg/L Not Estab. Cystine, Quant, Ur 13.27 10.00 - 100.00 Osmolality, Urine 400 mOsmol/kg 300 - 900 Creatinine, Urine 36.4 mg/dL Not Estab. Creatinine, Urine 527.8 Low 800.0 - 1800.0 pH, 24 Hr Urine 6.3 Ammonia, Urine 79947 ug/dL Not Estab. Ammonia, Urine 22 No t Estab. Saturation Ratios Calcium Oxalate 5.13 ratio 0.00 - 6.00 Brushite 1.95 ratio 0.00 - 3.00 Monosodium Urate 1.29 ratio 0.00 - 4.00 U calixto Acid 0.49 ratio 0.00 - 1.20 Struvite 0.04 ratio 0.00 - 1.00 Please note: Graphic analysis of results will follow via computer, mail, or production technologist del hayes. TESTING PERFORMED AT [facility]. ORIGINAL REPORT ON FILE IN LAB CONTAINS ADDITIONAL TEST SITE INFORMATION. AMENDED REPORT 10/04/17801 [facility] [place] previously reported as: TEST RESULT FLAG UNITS REF INTERVALKidney Stone, Urine/Saturation Urine Volume 1450 mL/24 hr 600 - 1600 Urine Volume (Preservative) 1450 mL/24 hr 600 - 1600 Calcium, Urine 13.8 mg/dL Not Estab. Calcium, Urine 200.1 100.0 - 300.0 Sodium, Urine 52 mmol/L Not Estab. Sodium, Urine 75 39 - 258 Phosphorus, Urine 38.9 mg/dL Not Estab. Phos phorus, Urine 564.0 400.0 - 1300.0 Uric Acid, Urine 22.1 mg/dL Not Estab. Uric Acid, Urine 320 250 - 750 Potassium, Urine 2 7.9 mmol/L Not Estab. Potassium, Urine 40.5 25.0 - 125 .0 Chloride, Urine 42 mmol/L Not Estab. Chloride Urine 61 Low 110 - 250 Citric Acid (Citrate) 480 mg/L Not Estab. Citric Acid(Citrate) 696 320 - 1240 Oxalates, Urine 14 mg/L Not Estab. Oxalates, Urine 20 4 - 31 Magnesium, Urine 6.8 mg/dL Not Estab. Magnesium, Ur(24 Hr) 99 12 - 293 Sulfate, Urine 9 mEq/L Not Estab. Sulfate, Urine 13 0 - 30 Cystine, Quantitative, Urine 9.15 mg/L Not Estab. Cystine, Quant, Ur 13.27 10.00 - 100.00 Osmolality, Uri ne 400 mOsmol/kg 300 - 900 Creatinine, Urine 36.4 mg/dL Not Estab. Creatinine, Urine 527.8 Low 800.0 - 1800.0 pH, 24 Hr Urine 6.3 Ammo layton, Urine 99564 ug/dL Not Estab. TESTING PERFORMED AT [facility]. ORIGINAL REPORT ON FILE IN LAB CONTAINS ADDITIONAL TEST SITE INFORMATION. 96-Dcm-19745:45 Comprehensive Metabolic Profil Comments: [facility] [address] [place], [address] GAP 6 (Normal) Range: 5-15 CO2 32.0 mmol/L (Normal) Range: 21.0-32.0 CL 101 mmol/L (Normal) Range: 98-107 K 3.8 mmol/L (Normal) Range: 3.5-5.1 NA 139 mmol/L (Normal) Range: 136-145 T BILI 0.60 mg/dL (Normal) Range: 0.20-1.00 ALT 26 U/L (Normal) Range: 13-56 Comments: Please note revised ALT reference range ztneknmhj38/28/2018. ALK P 55 U/L (Normal) Range: 45-117 AST 14 U/L (Abnormal) Range: 15-37 CA 9.6 mg/dL (Normal) Range: 8.5-10.1 A/G 1.2 {RATIO} (Normal) Range: 0.9-2.4 GLOB 3.3 g/dL (Normal) Range: 2.2-4.2 ALB 3.9 g/dL (Normal) Range: 3.2-5.0 T PROT 7.2 g/dL (Normal) Range: 6.4-8.2 BUN/CRE 22.2 {RATIO} (Abnormal) Range: 10-20 EST GFR - AA 120 mL/min (Normal) Comments: GFR Calc EST GFR 99 mL/min (Normal) Comments: Non- GFR Calc CREAT,SERUM 0.63 mg/dL (Normal) Range: 0.55-1.02 Comments: The validity of the calculated GFR AND GFRAA in patients over70 years has not been determined. Clinical correlation isessential. BUN 14 mg/dL (Normal) Range: 7-18 GLU 93 mg/dL (Normal) Range: 74-106 Comments: Please note revised GLUCOSE reference range gldaudmud89/02/2018. :45 Magnesium Comments: [facility] [address] [place], [address](391) MG 2.4 mg/dL (Normal) Range: 1.6-2.6 Comments: Please note revised Magnesium reference range seljtdodh16/15/2018. 15-Exo-50548:45 Vitamin D,25 Hydroxy Comments: [facility] [address] [place], [id number] Vitamin D 25-OH 46.2 ng/mL (Normal) Range: 19.95-100.01 Comments: Vitamin D 25(OH) Status Range Deficiency <20 ng/mL (50nmol/L) Insuffciency 20 - 30 ng/mL (50 - 75 nmol/L) Sufficiency 30 - 100 ng/mL (75 - 250 nmol/L) Toxicity >100 ng/mL (>250 nmol/L) 4-Obw-365562:36 VITAMIN B-12 (CYANOCOBALAMIN) Comments: PATIENT NOT FASTINGPERFORMED BY: [employer] Usuibo4260 [facility] [id number] (50480) Vitamin B12 626 pg/mL (Normal) Range: 232-1245 42-Pec-292583:14 CBC W/AUTO DIFF WBC (59297) Comments: PATIENT NOT FASTINGPERFORMED BY: [employer] Lrtyal2737 [facility] [id number] Immature Grans (Abs) 0.0 {x10E3/uL} (Normal) Range: 0.0-0.1 Immature Granulocytes 0 % (Normal) Baso (Absolute) 0.0 {x10E3/uL} (Normal) Range: 0.0-0.2 Eos (Absolute) 0.1 {x10E3/uL} (Normal) Range: 0.0-0.4 Monocytes(Absolute) 0.5 {x10E3/uL} (Normal) Range: 0.1-0.9 Lymphs (Absolute) 1.5 {x10E3/uL} (Normal) Range: 0.7-3.1 Neutrophils (Absolute) 3.1 {x10E3/uL} (Normal) Range: 1.4-7.0 Basos 0 % (Normal) Eos 2 % (Normal) Monocytes 10 % (Normal) Lymphs 28 % (Normal) Neutrophils 60 % (Normal) Platelets 279 {x10E3/uL} (Normal) Range: 150-379 RDW 12.7 % (Normal) Range: 12.3-15.4 MCHC 33.3 g/dL (Normal) Range: 31.5-35.7 MCH 31.3 pg (Normal) Range: 26.6-33.0 MCV 94 fL (Normal) Range: 79-97 Hematocrit 43.3 % (Normal) Range: 34.0-46.6 Hemoglobin 14.4 g/dL (Normal) Range: 11.1-15.9 RBC 4.60 {x10E6/uL} (Normal) Range: 3.77-5.28 WBC 5.2 {x10E3/uL} (Normal) Range: 3.4-10.8 26-Hbc-676488:14 METABOLIC PANEL, COMPREHENSIVE Comments: PATIENT NOT FASTINGPERFORMED BY: [facility]CoNew [facility] Rehabilitation CenterWtnacg0722 [facility] [id number]; review 09/10 (57502) ALT (SGPT) 19 [iU]/L (Normal) Range: 0-32 AST (SGOT) 18 [iU]/L (Normal) Range: 0-40 Alkaline Phosphatase, S 52 [iU]/L (Normal) Range: 39-117 Bilirubin, Total 0.5 mg/dL (Normal) Range: 0.0-1.2 A/G Ratio 1.8 (Normal) Range: 1.2-2.2 Globulin, Total 2.5 g/dL (Normal) Range: 1.5-4.5 Albumin, Serum 4.6 g/dL (Normal) Range: 3.5-4.8 Protein, Total, Serum 7.1 g/dL (Normal) Range: 6.0-8.5 Calcium, Serum 10.5 mg/dL (Abnormal) Range: 8.7-10.3 Carbon Dioxide, Total 26 mmol/L (Normal) Range: 18-29 Chloride, Serum 97 mmol/L (Normal) Range: 96-106 Potassium, Serum 4.0 mmol/L (Normal) Range: 3.5-5.2 Sodium, Serum 140 mmol/L (Normal) Range: 134-144 BUN/Creatinine Ratio 28 (Normal) Range: 12-28 eGFR If Africn Am 104 mL/min/1.73 (Normal) eGFR If NonAfricn Am 90 mL/min/1.73 (Normal) Creatinine, Serum 0.65 mg/dL (Normal) Range: 0.57-1.00 BUN 18 mg/dL (Normal) Range: 8-27 Glucose, Serum 107 mg/dL (Abnormal) Range: 65-99 3-Vun-716018:04 Comprehensive Metabolic Profil Comments: [facility] [address] [place], [place], [id number] GAP 5 (Normal) Range: 5-15 CO2 28.0 mmol/L (Normal) Range: 21.0-32.0 CL 106 mmol/L (Normal) Range: 98-107 K 3.8 mmol/L (Normal) Range: 3.5-5.1 NA 139 mmol/L (Normal) Range: 136-145 T BILI 0.50 mg/dL (Normal) Range: 0.20-1.00 ALT 22 U/L (Normal) Range: 12-78 ALK P 54 U/L (Normal) Range: 45-117 AST 13 U/L (Abnormal) Range: 15-37 CA 9.8 mg/dL (Normal) Range: 8.5-10.1 A/G 1.2 {RATIO} (Normal) Range: 0.9-2.4 GLOB 3.2 g/dL (Normal) Range: 2.3-3.5 ALB 4.0 g/dL (Normal) Range: 3.4-5.0 T PROT 7.2 g/dL (Normal) Range: 6.4-8.2 BUN/CRE 28.2 {RATIO} (Abnormal) Range: 10-20 EST GFR - AA 111 mL/min (Normal) Comments: GFR Calc EST GFR 92 mL/min (Normal) Comments: Non- GFR Calc CREAT,SERUM 0.67 mg/dL (Normal) Range: 0.55-1.02 Comments: The validity of the calculated GFR AND GFRAA in patients over70 years has not been determined. Clinical correlation isessential. BUN 19 mg/dL (Abnormal) Range: 7-18 GLU 85 mg/dL (Normal) Range: 70-110 6-Dcw-493671:04 Magnesium Comments: [facility] [address] [place], [phone] MG 2.4 mg/dL (Normal) Range: 1.8-2.4 6-Rat-432610:04 PTH,INTACT Comments: [facility] [address] [place], [phone] PTH,Intact 57 pg/mL (Normal) Range: 14-72 7-Jgs-732602:04 Vitamin D,25 Hydroxy Comments: [facility] [address] [place], [address] Vitamin D 25-OH 62.0 ng/mL (Normal) Comments: Vitamin D 25(OH) Status Range Deficiency <20 ng/mL (50nmol/L) Insuffciency 20 - 30 ng/mL (50 - 75 nmol/L) Sufficiency 30 - 100 ng/mL (75 - 250 nmol/L) Toxicity >100 ng/mL (>250 nmol/L) 85-Zte-429892:07 CBC W/AUTO DIFF WBC Comments: PATIENT WAS FASTINGPERFORMED BY: [facility] AllianceBryan [place] [address] [facility] [id number] BY: ROMEO [employer] Hshvbc3826 [facility] [id number] ([address]) Immature Grans (Abs) 0.0 {x10E3/uL} (Normal) Range: 0.0-0.1 Immature Granulocytes 0 % (Normal) Baso (Absolute) 0.0 {x10E3/uL} (Normal) Range: 0.0-0.2 Eos (Absolute) 0.1 {x10E3/uL} (Normal) Range: 0.0-0.4 Monocytes(Absolute) 0.4 {x10E3/uL} (Normal) Range: 0.1-0.9 Lymphs (Absolute) 1.5 {x10E3/uL} (Normal) Range: 0.7-3.1 Neutrophils (Absolute) 3.1 {x10E3/uL} (Normal) Range: 1.4-7.0 Basos 0 % (Normal) Eos 3 % (Normal) Monocytes 8 % (Normal) Lymphs 29 % (Normal) Neutrophils 60 % (Normal) Platelets 278 {x10E3/uL} (Normal) Range: 150-379 RDW 12.9 % (Normal) Range: 12.3-15.4 MCHC 34.3 g/dL (Normal) Range: 31.5-35.7 MCH 31.8 pg (Normal) Range: 26.6-33.0 MCV 93 fL (Normal) Range: 79-97 Hematocrit 42.6 % (Normal) Range: 34.0-46.6 Hemoglobin 14.6 g/dL (Normal) Range: 11.1-15.9 RBC 4.59 {x10E6/uL} (Normal) Range: 3.77-5.28 WBC 5.2 {x10E3/uL} (Normal) Range: 3.4-10.8 93-Hrm-409798:07 METABOLIC PANEL, Comments: PATIENT WAS FASTINGPERFORMED BY: [employer] [id number] BY: [facility] AllianceChrist HospitalNrkcth3719 [facility] [id number] [facility] ([address]) ALT (SGPT) 21 [iU]/L (Normal) Range: 0-32 AST (SGOT) 21 [iU]/L (Normal) Range: 0-40 Alkaline Phosphatase, S 55 [iU]/L (Normal) Range: 39-117 Bilirubin, Total 0.8 mg/dL (Normal) Range: 0.0-1.2 A/G Ratio 1.7 (Normal) Range: 1.2-2.2 Globulin, Total 2.6 g/dL (Normal) Range: 1.5-4.5 Albumin, Serum 4.4 g/dL (Normal) Range: 3.5-4.8 Protein, Total, Serum 7.0 g/dL (Normal) Range: 6.0-8.5 Calcium, Serum 10.1 mg/dL (Normal) Range: 8.7-10.3 Carbon Dioxide, Total 28 mmol/L (Normal) Range: 18-29 Chloride, Serum 99 mmol/L (Normal) Range: 96-106 Potassium, Serum 4.1 mmol/L (Normal) Range: 3.5-5.2 Sodium, Serum 142 mmol/L (Normal) Range: 134-144 BUN/Creatinine Ratio 19 (Normal) Range: 12-28 eGFR If Africn Am 102 mL/min/1.73 (Normal) eGFR If NonAfricn Am 88 mL/min/1.73 (Normal) Creatinine, Serum 0.70 mg/dL (Normal) Range: 0.57-1.00 BUN 13 mg/dL (Normal) Range: 8-27 Glucose, Serum 94 mg/dL (Normal) Range: 65-99 12-Txq-992689:07 LIPOPROTEIN, BLD, BY NMR Comments: PATIENT WAS FASTINGPERFORMED BY: LabGood Faith Film Fund[address] [id number] BY: [facility] AllianceChrist HospitalAnvyii2021 [facility] [id number] (63404) LP-IR Score 59 (Abnormal) Comments: INSULIN RESISTANCE MARKER <--Insulin Sensitive Insulin Resistant--> Percentile in Reference PopulationInsulin Resistance ScoreLP-IR Score Low 25th 50th 75th High <27 27 45 63 >63LP-IR Score is inaccurate if patient is non-fasting. .The LP-IR score is a laboratory developed i [facility] that has beenassociated with insulin resistance and diabetes risk and should beused as one component of a physician's clinical assessment. TheLP-IR score listed above has not been cleared by the [place] Food andDrug Administration. LDL Size 20.3 nm (Normal) Comments: INTERPRETATIVE INFORMATION PARTICLE CONCENTRATION AND SIZE <--Lower CVD Risk Highe r CVD Risk--> LDL AND HDL PARTICLES Percentile in Reference Population HDL-P (total) High 75th 50th 25th Low >34.9 34.9 30.5 26.7 <26.7 . Small LDL-P Low 25th 50th 75th High <117 117 527 839 >839 . LDL Size <-Large (Pattern A)-> <-Small (Pattern B)-> 23.0 20.6 20.5 19.0 Small LDL-P and LDL Size are associated with CVD risk, but not afterLDL-P is taken into account. .These assays were developed and their performance characteristicsdetermined by [employer]. These assays have not been cleared by Rupesh Food and Drug Administration. The clinical utility of theselaboratory values have not been fully established. Small LDL-P 893 nmol/L (Abnormal) HDL-P (Total) 37.9 umol/L (Normal) Cholesterol, Total 198 mg/dL (Normal) Range: 100-199 Triglycerides 135 mg/dL (Normal) Range: 0-149 HDL-C 51 mg/dL (Normal) LDL-C 120 mg/dL (Abnormal) Range: 0-99 Comments: . Optimal < 100 Above optimal 100 - 129 Borderline 1 30 - 159 High 160 - 189 Very high > 189 .LDL-C is inaccurate if patient is non-fasting. LDL-P 1617 nmol/L (Abnormal) Comments: Low < 1000 Moderate 1000 - 1299 Borderline-High 1300 - 1599 High 1600 - 2000 Very High > 2000 77-Doo-860248:07 Vitamin D Hydroxy Comments: PATIENT WAS FASTINGPERFORMED BY: [employer] [address] [id number] BY: [facility] AllianceNew Mexico Rehabilitation CenterCxxlna8420 [facility] [id number] (63074) Vitamin D, 25-Hydroxy 75.1 ng/mL (Normal) Range: 30.0-100.0 Comments: Vitamin D deficiency has been defined by the [place] [facility] Hospitalcine and an Endocrine Society practice guideline as alevel of serum 25-OH vitamin D less than 20 ng/mL (1,2).The Endocrine Society went on to further define vitamin Dinsufficiency as a level between 21 and 29 ng/mL (2).1. IOM ([place] of Medicine). 2010. Dietary reference intakes for calcium and D. [place]: The National Academies Press.2. Robinson MF, Keila AGUERO, Bruce ROBLES, et al. Evaluation, treatment, and prevention of vitamin D deficiency: an Endocrine Society clinical practice guideline. JCEM. 2010; 96(7):1911-30. 93-Cnx-109038:07 HGB A1C (30008) Comments: PATIENT WAS FASTINGPERFORMED BY: [employer] [address] [id number] BY: [employer]70 [facility] [id number] Hemoglobin A1c 5.6 % (Normal) Range: 4.8-5.6 Comments: . Pre-diabetes: 5.7 - 6.4 Diabetes: >6.4 Glycemic control for adults with diabetes: <7.0 5-Vod-829300:30 Rapid Flu (71078 x 2) Influenza A Ag positive A (Normal) 79-Hud-25359:49 MICROALBUMIN: CREATININE Comments: PATIENT WAS FASTINGPERFORMED BY: [employer] [address] [id number] BY: [employer] Fpicjk7216 [facility] [id number] RATIO (74008) AND (69084) Microalb/Creat Ratio 9.5 {mg/g_creat} (Normal) Range: 0.0-30.0 Microalbumin, Urine 18.9 ug/mL (Normal) Creatinine, Urine 200.0 mg/dL (Normal) :49 HGB A1C (73460) Comments: PATIENT WAS FASTINGPERFORMED BY: LabGood Faith Film FundBryan Ville [address] [facility] [id number] BY: LabMclaren [facility] Region6370 [facility] [id number] Hemoglobin A1c 5.8 % (Abnormal) Range: 4.8-5.6 Comments: . Pre-diabetes: 5.7 - 6.4 Diabetes: >6.4 Glycemic control for adults with diabetes: <7.0 :49 METABOLIC PANEL, Comments: PATIENT WAS FASTINGPERFORMED BY: Lab[employer] Fund[address] [id number] BY: LabGood Faith Film FundChrist HospitalSkbzap7884 [facility] [id number] COMPREHENSIVE (02193) ALT (SGPT) 13 [iU]/L (Normal) Range: 0-32 AST (SGOT) 13 [iU]/L (Normal) Range: 0-40 Alkaline Phosphatase, S 46 [iU]/L (Normal) Range: 39-117 Bilirubin, Total 0.6 mg/dL (Normal) Range: 0.0-1.2 A/G Ratio 1.8 (Normal) Range: 1.2-2.2 Globulin, Total 2.4 g/dL (Normal) Range: 1.5-4.5 Albumin, Serum 4.3 g/dL (Normal) Range: 3.5-4.8 Protein, Total, Serum 6.7 g/dL (Normal) Range: 6.0-8.5 Calcium, Serum 9.7 mg/dL (Normal) Range: 8.7-10.3 Carbon Dioxide, Total 26 mmol/L (Normal) Range: 18-29 Chloride, Serum 101 mmol/L (Normal) Range: 96-106 Potassium, Serum 4.0 mmol/L (Normal) Range: 3.5-5.2 Sodium, Serum 144 mmol/L (Normal) Range: 134-144 BUN/Creatinine Ratio 27 (Normal) Range: 12-28 eGFR If Africn Am 105 mL/min/1.73 (Normal) eGFR If NonAfricn Am 91 mL/min/1.73 (Normal) Creatinine, Serum 0.63 mg/dL (Normal) Range: 0.57-1.00 BUN 17 mg/dL (Normal) Range: 8-27 Glucose, Serum 91 mg/dL (Normal) Range: 65-99 11-Zcd-80244:49 LIPOPROTEIN, BLD, BY NMR Comments: PATIENT WAS FASTINGPERFORMED BY: BN [facility] Gtykiubguv0733 [facility] [id number] BY: CB [facility] Fmwpsh5325 [facility] [id number]; fu 11-28 Dr. Law (43118) LP-IR Score 36 (Normal) Comments: INSULIN RESISTANCE MARKER <--Insulin Sensitive Insulin Resistant--> Percentile in Reference PopulationInsulin Resistance ScoreLP-IR Score Low 25th 50th 75th High <27 27 45 63 >63LP-IR Score is inaccurate if patient is non-fasting. .The LP-IR score is a laboratory developed i [facility] that has beenassociated with insulin resistance and diabetes risk and should beused as one component of a physician's clinical assessment. TheLP-IR score listed above has not been cleared by the US Food andDrug Administration. LDL Size 20.9 nm (Normal) Comments: INTERPRETATIVE INFORMATION PARTICLE CONCENTRATION AND SIZE <--Lower CVD Risk Highe r CVD Risk--> LDL AND HDL PARTICLES Percentile in Reference Population HDL-P (total) High 75th 50th 25th Low >34.9 34.9 30.5 26.7 <26.7 . Small LDL-P Low 25th 50th 75th High <117 117 527 839 >839 . LDL Size <-Large (Pattern A)-> <-Small (Pattern B)-> 23.0 20.6 20.5 19.0 Small LDL-P and LDL Size are associated with CVD risk, but not afterLDL-P is taken into account. .These assays were developed and their performance characteristicsdetermined by [employer]. These assays have not been cleared by [place]upesh Food and Drug Administration. The clinical utility of theselaboratory values have not been fully established. Small LDL-P 645 nmol/L (Abnormal) HDL-P (Total) 33.1 umol/L (Normal) Cholesterol, Total 203 mg/dL (Abnormal) Range: 100-199 Triglycerides 93 mg/dL (Normal) Range: 0-149 HDL-C 48 mg/dL (Normal) LDL-C 136 mg/dL (Abnormal) Range: 0-99 Comments: . Optimal < 100 Above optimal 100 - 129 Borderline 1 30 - 159 High 160 - 189 Very high > 189 .LDL-C is inaccurate if patient is non-fasting. LDL-P 1463 nmol/L (Abnormal) Comments: Low < 1000 Moderate 1000 - 1299 Borderline-High 1300 - 1599 High 1600 - 2000 Very High > 2000 16-Srk-243277:00 Comprehensive Metabolic Profil Comments: [facility] [address] [place], [address] GAP 4 (Abnormal) Range: 5-15 CO2 30.0 mmol/L (Normal) Range: 21.0-32.0 CL 105 mmol/L (Normal) Range: 98-107 K 3.9 mmol/L (Normal) Range: 3.5-5.1 NA 139 mmol/L (Normal) Range: 136-145 T BILI 0.50 mg/dL (Normal) Range: 0.20-1.00 ALT 29 U/L (Normal) Range: 12-78 ALK P 66 U/L (Normal) Range: 50-136 AST 15 U/L (Normal) Range: 15-37 CA 10.0 mg/dL (Normal) Range: 8.5-10.1 A/G 1.1 {RATIO} (Normal) Range: 0.9-2.4 GLOB 3.5 g/dL (Normal) Range: 2.3-3.5 ALB 4.0 g/dL (Normal) Range: 3.4-5.0 T PROT 7.5 g/dL (Normal) Range: 6.4-8.2 BUN/CRE 38.0 {RATIO} (Abnormal) Range: 10-20 EST GFR - AA 114 mL/min (Normal) Comments: GFR Calc EST GFR 95 mL/min (Normal) Comments: Non- GFR Calc CREAT,SERUM 0.66 mg/dL (Normal) Range: 0.55-1.20 Comments: The validity of the calculated GFR AND GFRAA in patients over70 years has not been determined. Clinical correlation isessential. BUN 25 mg/dL (Abnormal) Range: 7-18 GLU 80 mg/dL (Normal) Range: 70-110 49-Cvt-816808:00 Magnesium Comments: [facility] [address] [place], [place], [id number] MG 2.2 mg/dL (Normal) Range: 1.8-2.4 97-Kex-438442:00 PTH,INTACT Comments: [facility] [address] [place], [place], [id number] PTH,Intact 39 pg/mL (Normal) Range: 14-72 80-Ono-686130:00 Vitamin D,25 Hydroxy Comments: [facility] [address] [place], [place], [address] Vitamin D 25-OH 44.7 ng/mL (Normal) Comments: Vitamin D 25(OH) Status Range Deficiency <20 ng/mL (50nmol/L) Insuffciency 20 - 30 ng/mL (50 - 75 nmol/L) Sufficiency 30 - 100 ng/mL (75 - 250 nmol/L) Toxicity >100 ng/mL (>250 nmol/L) :23 HgA1C , Office (87929) HgA1C , Office 5.3 % (Normal) Range: 4.6 - 7.1 :42 CBC W/Diff, Automated Comments: [facility] [address] [place], [place], [id number] Absolute Lymph 1.85 {X10_3/ul} (Normal) Range: 0.83-4.51 Absolute Neut 2.7 {X10_3/uL} (Normal) Range: 2.0-7.7 IM GRAN % 0.200 % (Normal) Range: 0.0-0.9 Comments: IG% - Immature Granulocytes (promyelocytes, myelocytes andmetamyelocytes) > 1% indicates that a LEFT SHIFT is Present. BASO% 0.4 % (Normal) Range: 0-1 EO% 3.6 % (Normal) Range: 0-5 MONO% 9.4 % (Normal) Range: 0-10 LY% 35.5 % (Normal) Range: 19-41 NEUT% 50.9 % (Normal) Range: 47-70 MPV 10.2 fL (Normal) Range: 6.2-12.0 PLT 261 K/mm3 (Normal) Range: 150-450 RDW SD 42.2 fL (Normal) Range: 35.1-43.9 RDW CV 12.7 % (Normal) Range: 11.6-14.6 MCHC 34.0 {g/gl} (Normal) Range: 32-36 MCH 31.5 pg (Normal) Range: 27.0-32.0 MCV 92.7 fL (Normal) Range: 81-99 HCT 43.2 % (Normal) Range: 37-47 HGB 14.7 g/dL (Normal) Range: 12.0-15.0 RBC 4.66 {M/mm3} (Normal) Range: 4.2-5.4 WBC 5.2 K/mm3 (Normal) Range: 4.4-11.0 52-Xda-85599:42 Comprehensive Metabolic Profil Comments: [facility] [address] [place], [address] ; non-emergent till apt GAP 4 (Abnormal) Range: 5-15 CO2 33.0 mmol/L (Abnormal) Range: 21.0-32.0 CL 103 mmol/L (Normal) Range: 98-107 K 3.6 mmol/L (Normal) Range: 3.5-5.1 NA 140 mmol/L (Normal) Range: 136-145 T BILI 0.70 mg/dL (Normal) Range: 0.20-1.00 ALT 25 U/L (Normal) Range: 12-78 ALK P 57 U/L (Normal) Range: 50-136 AST 14 U/L (Abnormal) Range: 15-37 CA 9.2 mg/dL (Normal) Range: 8.5-10.1 A/G 1.2 {RATIO} (Normal) Range: 0.9-2.4 GLOB 3.3 g/dL (Normal) Range: 2.3-3.5 ALB 3.9 g/dL (Normal) Range: 3.4-5.0 T PROT 7.2 g/dL (Normal) Range: 6.4-8.2 BUN/CRE 24.7 {RATIO} (Abnormal) Range: 10-20 EST GFR - AA 102 mL/min (Normal) Comments: GFR Calc EST GFR 84 mL/min (Normal) Comments: Non- GFR Calc CREAT,SERUM 0.73 mg/dL (Normal) Range: 0.55-1.20 Comments: The validity of the calculated GFR AND GFRAA in patients over70 years has not been determined. Clinical correlation isessential. BUN 18 mg/dL (Normal) Range: 7-18 GLU 93 mg/dL (Normal) Range: 70-110 :42 Lipid Profile Comments: [facility] [address] [place], [place], [address] VLDL 30 mg/dL (Normal) Range: 5-40 LDL 81 mg/dL (Normal) Range: 0-130 HDL 50 mg/dL (Normal) Comments: The drugs N-Acetylcysteine and Metamizole may falsely deressthis assay. Reference Range HDL <40 mg/dL Low HDL Cholesterol HDL >or= 60 mg/dL High HDL Cholesterol TRIG 150 mg/dL (Normal) Comments: The drugs N-Acetylcysteine and Metamizole may falsely deressthis assay.Serum Triglycerides Reference Interval Normal <150 mg/dL Borderline high 150 - 199 mg/dL High 200 - 499 mg/dL Very High > or = 500 mg/dL CHOL 161 mg/dL (Normal) Comments: <200 mg/dL Desirable 200-240 mg/dL Borderline >240 mg/dL High Risk :42 Microalb:Creat Ratio,Random UR Comments: [facility] [address] [place], [id number] MALB:CREAT 7.2 {mg/g_CRE} (Normal) MICROALBUMIN,UR 12.0 mg/L (Normal) UR CREAT 166.00 mg/dL (Normal) :42 Vitamin B12 726 pg/mL (Normal) Comments: [facility] [address] [place], [phone] ; will review on 05/08 appt Range: 211-911 :42 Vitamin D,25 Hydroxy Comments: [facility] [address] [place], [id number] Vitamin D 25-OH 56.6 ng/mL (Normal) Comments: Vitamin D 25(OH) Status Range Deficiency <20 ng/mL (50nmol/L) Insuffciency 20 - 30 ng/mL (50 - 75 nmol/L) Sufficiency 30 - 100 ng/mL (75 - 250 nmol/L) Toxicity >100 ng/mL (>250 nmol/L) :46 Culture, Urine Comments: [facility] [address] [place], [id number] CUUR See Note (Normal) Comments: Urine CultureORGANISM 1: Enterobacter aerogenesColony Count 50,000-80,000 Enterobacter aerogenes: REACTION Amoxacillin/Clavulanic Acid $ >=32 R Cefazolin $ >=64 R Cefepime $ <=1 S Ceftriaxone $ <=1 S Ciprofloxacin $ <=0.25 S Ertapenim $$$ <=0.5 S Gentamicin $ <=1 S Imipenem *NF 1 S Levofloxacin $ <=0.12 S Nitrofurantoin $ 64 I Piperacillin/Tazobactam $$ <=4 S Tobramycin $ <=1 S T rimethoprim/Sulfametho $ <=20 S(NF) indicates non-formulary drug at [facility]. Approval by Infectious Disease Specialist required before non-formulary drugs may be ordered and/or dispensed. :46 Urinalysis, Routine (Dipstick) Comments: How was Urine Obtained? CLEAN CATCHWooOur [facility] [address]isf[address] [place], [place], [id number] LEUK ESTERASE 500 /ul (Abnormal) OCCULT BLOOD-UR 25 /ul (Abnormal) NITRITE UR Negative (Normal) UROBILI Normal mg/dL (Normal) PROT DIPSTX 30 mg/dL (Abnormal) pH UR 6.0 (Normal) Range: 5.0 - 8.0 SP.GR. DIPSTX 1.025 (Normal) Range: 1.002-1.030 KETONE UR Negative mg/dL (Normal) BILIRUBIN URINE Negative mg/dL (Normal) GLUCOSE, UR Normal mg/dL (Normal) CLARITY Sl. Cloudy (Normal) COLOR Yellow (Normal) [id number] PTH,INTACT Comments: [facility] [id number] [place], [place], [id number] PTH,Intact 64 pg/mL (Normal) Range: 14-72 [id number] CBC W/Diff, Automated Comments: [facility] [id number] [place], [place], [id number] Absolute Lymph 1.36 {X10_3/ul} (Normal) Range: 0.83-4.51 Absolute Neut 3.2 {X10_3/uL} (Normal) Range: 2.0-7.7 IM GRAN % 0.200 % (Normal) Range: 0.0-0.9 Comments: IG% - Immature Granulocytes (promyelocytes, myelocytes andmetamyelocytes) > 1% indicates that a LEFT SHIFT is Present. BASO% 0.2 % (Normal) Range: 0-1 EO% 2.5 % (Normal) Range: 0-5 MONO% 9.5 % (Normal) Range: 0-10 LY% 26.3 % (Normal) Range: 19-41 NEUT% 61.3 % (Normal) Range: 47-70 MPV 10.3 fL (Normal) Range: 6.2-12.0 PLT 255 K/mm3 (Normal) Range: 150-450 RDW SD 44.5 fL (Abnormal) Range: 35.1-43.9 RDW CV 13.5 % (Normal) Range: 11.6-14.6 MCHC 34.1 {g/gl} (Normal) Range: 32-36 MCH 31.7 pg (Normal) Range: 27.0-32.0 MCV 93.0 fL (Normal) Range: 81-99 HCT 44.9 % (Normal) Range: 37-47 HGB 15.3 g/dL (Abnormal) Range: 12.0-15.0 RBC 4.83 {M/mm3} (Normal) Range: 4.2-5.4 WBC 5.2 K/mm3 (Normal) Range: 4.4-11.0 [id number] Comprehensive Metabolic Profil Comments: [facility] [id number] [place], [place], [id number] GAP 2 (Abnormal) Range: 5-15 CO2 31.0 mmol/L (Normal) Range: 21.0-32.0 CL 108 mmol/L (Abnormal) Range: 98-107 K 3.8 mmol/L (Normal) Range: 3.5-5.1 NA 141 mmol/L (Normal) Range: 136-145 T BILI 0.80 mg/dL (Normal) Range: 0.20-1.00 ALT 33 U/L (Normal) Range: 12-78 ALK P 50 U/L (Normal) Range: 50-136 AST 18 U/L (Normal) Range: 15-37 CA 9.3 mg/dL (Normal) Range: 8.5-10.1 A/G 1.2 {RATIO} (Normal) Range: 0.9-2.4 GLOB 3.3 g/dL (Normal) Range: 2.3-3.5 ALB 4.0 g/dL (Normal) Range: 3.4-5.0 T PROT 7.3 g/dL (Normal) Range: 6.4-8.2 BUN/CRE 27.0 {RATIO} (Abnormal) Range: 10-20 EST GFR - AA 121 mL/min (Normal) Comments: GFR Calc EST GFR 100 mL/min (Normal) Comments: Non- GFR Calc CREAT,SERUM 0.63 mg/dL (Normal) Range: 0.55-1.20 Comments: The validity of the calculated GFR AND GFRAA in patients over70 years has not been determined. Clinical correlation isessential. BUN 17 mg/dL (Normal) Range: 7-18 GLU 99 mg/dL (Normal) Range: 70-110 24-Cyf-249637:09 Hemoglobin A1c Comments: [facility] [address] [place], [id number] HGB A1C 5.4 % (Normal) Range: 4.2-6.3 83-Xkx-639796:09 Lipid Profile Comments: [facility] [address] [place], [id number] VLDL 29 mg/dL (Normal) Range: 5-40 LDL 136 mg/dL (Abnormal) Range: 0-130 HDL 51 mg/dL (Normal) Comments: Reference Range HDL <40 mg/dL Low HDL Cholesterol HDL >or= 60 mg/dL High HDL Cholesterol TRIG 143 mg/dL (Normal) Comments: Serum Triglycerides Reference Interval Normal <150 mg/dL Borderline high 150 - 199 mg/dL High 200 - 499 mg/dL Very High > or = 500 mg/dL CHOL 216 mg/dL (Abnormal) Comments: <200 mg/dL Desirable 200-240 mg/dL Borderline >240 mg/dL High Risk 99-Ejj-230377:09 Microalb:Creat Ratio,Random UR Comments: [facility] [address] [place], [id number] MALB:CREAT 13.7 {mg/g_CRE} (Normal) MICROALBUMIN,UR 19.5 mg/L (Normal) UR CREAT 142.00 mg/dL (Normal) 31-Avz-027488:09 Vitamin B12 543 pg/mL (Normal) Comments: [facility] [address] [place], [id number] Range: 211-911 24-Goq-460003:09 Vitamin D,25 Hydroxy Comments: [facility] [address] [place], [id number] Vitamin D 25-OH 58.6 ng/mL (Normal) Comments: Vitamin D 25(OH) Status Range Deficiency <20 ng/mL (50nmol/L) Insuffciency 20 - 30 ng/mL (50 - 75 nmol/L) Sufficiency 30 - 100 ng/mL (75 - 250 nmol/L) Toxicity >100 ng/mL (>250 nmol/L) 61-Cav-259817:30 Comprehensive Metabolic Profil Comments: [facility] [address] [place], [id number] ; Ordered by another doctor GAP 6 (Normal) Range: 5-15 CO2 30.0 mmol/L (Normal) Range: 21.0-32.0 CL 106 mmol/L (Normal) Range: 98-107 K 3.6 mmol/L (Normal) Range: 3.5-5.1 NA 142 mmol/L (Normal) Range: 136-145 T BILI 0.60 mg/dL (Normal) Range: 0.20-1.00 ALT 35 U/L (Normal) Range: 12-78 ALK P 57 U/L (Normal) Range: 50-136 AST 23 U/L (Normal) Range: 15-37 CA 9.7 mg/dL (Normal) Range: 8.5-10.1 A/G 1.1 {RATIO} (Normal) Range: 0.9-2.4 GLOB 3.7 g/dL (Abnormal) Range: 2.3-3.5 ALB 4.0 g/dL (Normal) Range: 3.4-5.0 T PROT 7.7 g/dL (Normal) Range: 6.4-8.2 BUN/CRE 27.8 {RATIO} (Abnormal) Range: 10-20 EST GFR - AA 125 mL/min (Normal) Comments: GFR Calc EST GFR 103 mL/min (Normal) Comments: Non- GFR Calc CREAT,SERUM 0.61 mg/dL (Normal) Range: 0.55-1.20 Comments: The validity of the calculated GFR AND GFRAA in patients over70 years has not been determined. Clinical correlation isessential. BUN 17 mg/dL (Normal) Range: 7-18 GLU 93 mg/dL (Normal) Range: 70-110 09-Hqi-233462:30 PTH,INTACT Comments: [facility] [address] [place], [id number] PTH,Intact 70 pg/mL (Normal) Range: 14-72 00-Sbx-174064:30 Vitamin D,25 Hydroxy Comments: [facility] [address] [place], [place], [id number] Vitamin D 25-OH 52.0 ng/mL (Normal) Comments: Vitamin D 25(OH) Status Range Deficiency <20 ng/mL (50nmol/L) Insuffciency 20 - 30 ng/mL (50 - 75 nmol/L) Sufficiency 30 - 100 ng/mL (75 - 250 nmol/L) Toxicity >100 ng/mL (>250 nmol/L) 86-Bwt-694485:23 URINE LOW CULTURE-RUDDY COL Comments: PATIENT NOT FASTINGPERFORMED BY: [facility] Gjmrdj9003 [facility] [id number] Information: SRC:URC [id number] COUNT (02739) Result 1 NG36 (Normal) Comments: No growth in 36 - 48 hours. Urine Culture,Comprehensive Final report (Normal) 25-Deu-47291:56 Urinalysis, Office (02860) UA - LEUKOCYTE ESTERASE Negative (Normal) UA - NITRITE Negative (Normal) URINE UROBILINGN RUDDY TIMED Normal mg/dL (Normal) UA - PROTEIN Negative mg/dL (Normal) UA - PH 7 (Normal) UA - BLOOD Negative (Normal) UA - SPECIFIC GRAVITY 1.030 (Abnormal) UA - KETONES Negative mg/dL (Normal) UA - BILIRUBIN Negative (Normal) UA - GLUCOSE Negative (Normal) 29-Dhf-02493:29 HgA1C , Office (33221) HgA1C , Office 5.7 % (Normal) Range: 4.6 - 7.1 0-Ovc-096320:11 Comprehensive Metabolic Profil Comments: [facility] [address] [place], [place], [address] ; [address]. [address] GAP 5 (Normal) Range: 5-15 CO2 31.0 mmol/L (Normal) Range: 21.0-32.0 CL 103 mmol/L (Normal) Range: 98-107 K 3.6 mmol/L (Normal) Range: 3.5-5.1 NA 139 mmol/L (Normal) Range: 136-145 T BILI 0.50 mg/dL (Normal) Range: 0.20-1.00 ALT 35 U/L (Normal) Range: 12-78 ALK P 51 U/L (Normal) Range: 50-136 AST 19 U/L (Normal) Range: 15-37 CA 10.0 mg/dL (Normal) Range: 8.5-10.1 A/G 1.2 {RATIO} (Normal) Range: 0.9-2.4 GLOB 3.3 g/dL (Normal) Range: 2.3-3.5 ALB 4.0 g/dL (Normal) Range: 3.4-5.0 T PROT 7.3 g/dL (Normal) Range: 6.4-8.2 BUN/CRE 30.0 {RATIO} (Abnormal) Range: 10-20 EST GFR - AA 128 mL/min (Normal) EST GFR 106 mL/min (Normal) CREAT,SERUM 0.60 mg/dL (Normal) Range: 0.55-1.20 Comments: The validity of the calculated GFR AND GFRAA in patients over70 years has not been determined. Clinical correlation isessential. BUN 18 mg/dL (Normal) Range: 7-18 GLU 80 mg/dL (Normal) Range: 70-110 0-Yyd-372678:11 Culture, Urine Comments: [facility] [address] [place], [place], [id number] CUUR See Note (Normal) Comments: Urine CultureCulture exhibits no growth. 7-Ceh-717142:11 Lipid Profile Comments: [facility] [address] [place], [place], [address] VLDL 27 mg/dL (Normal) Range: 5-40 LDL 111 mg/dL (Normal) Range: 0-130 HDL 52 mg/dL (Normal) Comments: Reference Range HDL <40 mg/dL Low HDL Cholesterol HDL >or= 60 mg/dL High HDL Cholesterol TRIG 137 mg/dL (Normal) Comments: Serum Triglycerides Reference Interval Normal <150 mg/dL Borderline high 150 - 199 mg/dL High 200 - 499 mg/dL Very High > or = 500 mg/dL CHOL 190 mg/dL (Normal) Comments: <200 mg/dL Desirable 200-240 mg/dL Borderline >240 mg/dL High Risk 0-Dvx-764223:11 Vitamin B12 545 pg/mL (Normal) Comments: [facility] [address] [place], [address] Range: 211-911 Comments: ADDENDA: normal and has apt next week 17-Vqi-346625:00 Comprehensive Metabolic Profil Comments: Test performed at:[facility] [address] [place] [address] ; handled by jasmina GAP 3 (Abnormal) Range: 5-15 CO2 30.0 mmol/L (Normal) Range: 21.0-32.0 CL 103 mmol/L (Normal) Range: 98-107 K 3.9 mmol/L (Normal) Range: 3.5-5.1 NA 136 mmol/L (Normal) Range: 136-145 T BILI 0.80 mg/dL (Normal) Range: 0.20-1.00 ALT 35 U/L (Normal) Range: 12-78 ALK P 53 U/L (Normal) Range: 50-136 AST 23 U/L (Normal) Range: 15-37 CA 9.5 mg/dL (Normal) Range: 8.5-10.1 A/G 1.2 {RATIO} (Normal) Range: 0.9-2.4 GLOB 3.4 g/dL (Normal) Range: 2.3-3.5 ALB 4.1 g/dL (Normal) Range: 3.4-5.0 T PROT 7.5 g/dL (Normal) Range: 6.4-8.2 BUN/CRE 26.1 {RATIO} (Abnormal) Range: 10-20 EST GFR - AA 109 mL/min (Normal) EST GFR 90 mL/min (Normal) CREAT,SERUM 0.69 mg/dL (Normal) Range: 0.55-1.20 Comments: The validity of the calculated GFR AND GFRAA in patients over70 years has not been determined. Clinical correlation isessential. BUN 18 mg/dL (Normal) Range: 7-18 GLU 91 mg/dL (Normal) Range: 70-110 90-Ibc-814759:00 PTH,INTACT Comments: Test performed at:[facility] [address] [place] [address] PTH,Intact 87 pg/mL (Abnormal) Range: 14-72 55-Ckt-645297:00 Thyroid Stim Hormone (TSH) Comments: Test performed at:[facility] [address] [place] [address] TSH 0.57 {uIU/mL} (Normal) Range: 0.358-3.74 02-Faz-402588:00 Vitamin D,25 Hydroxy Comments: Test performed at:[facility] [address]ql[address] [place] [address] Vitamin D 25-OH 38.5 ng/mL (Normal) Comments: Vitamin D 25(OH) Status Range Deficiency <20 ng/mL (50nmol/L) Insuffciency 20 - 30 ng/mL (50 - 75 nmol/L) Sufficiency 30 - 100 ng/mL (75 - 250 nmol/L) Toxicity >100 ng/mL (>250 nmol/L) 1-Jzk-085761:51 URINE LOW CULTURE-RUDDY COL Comments: PATIENT NOT FASTINGPERFORMED BY: [facility] Nmdnbj7924 [facility] [id number] Information: SRC:[facility] [id number]; susept. to cipro and was treated COUNT (70607) Antimicrobial MIHEAD (Normal) Comments: S = Susceptible; I = Intermediate; R = Resistant P = Positive; N = Negative MICS are expressed in micrograms per mL Antibiotic RSLT#1 RSLT#2 RS Susceptibility LT#3 RSLT#4Amoxicillin/Clavulanic Acid RAmpicillin RCefazolin RCefepime SCeftriaxone RCefuroxime RCephalothin RCiprofloxacin SErtapenem SGentamicin SImipenem SLevofloxacin SNitrof urantoin SPiperacillin RTetracycline STobramycin STrimethoprim/Sulfa S Result 1 Escherichia coli Comments: Greater than 100,000 colony forming units per mL (Abnormal) Urine Final report Culture,Comprehensive (Abnormal) 8-Lpu-717471:15 Urinalysis, Office (87723) UA - LEUKOCYTE ESTERASE Moderate (Normal) UA - NITRITE Negative (Normal) URINE UROBILINGN RUDDY TIMED Normal mg/dL (Normal) UA - PROTEIN 30 mg/dL (Normal) UA - PH 6.0 (Normal) Comments: 5.5 UA - BLOOD Non Hemolyzed Moderate (Normal) UA - SPECIFIC GRAVITY 1.020 (Normal) UA - KETONES 15 mg/dL (Abnormal) UA - BILIRUBIN Negative (Normal) UA - GLUCOSE Negative (Normal) :18 Immunofixation Urine Comments: Test performed at:[facility] [address] [place] [address] GEMMA Urine Comment (Normal) Comments: No monoclonality detected.Performed at: - [facility] [id number] Director: Himanshu Leung PhD, Phone: [phone] 78-Znf-63810:18 PTH,INTACT Comments: Test performed at:[facility] [address] [place] [address] PTH,Intact 65 pg/mL (Normal) Range: 14-72 :18 Vitamin D,25 Hydroxy Comments: Test performed at:[facility] [address] [facility] [place] [address] Vitamin D 25-OH 45.2 ng/mL (Normal) Comments: Vitamin D 25(OH) Status Range Deficiency <20 ng/mL (50nmol/L) Insuffciency 20 - 30 ng/mL (50 - 75 nmol/L) Sufficiency 30 - 100 ng/mL (75 - 250 nmol/L) Toxicity >100 ng/mL (>250 nmol/L) 82-Wqd-479479:29 Basic Metabolic Profile (BMP) Comments: Test performed at:[facility] [address] [place] [address] ; handled by nohelia GAP 7 (Normal) Range: 5-15 CO2 30.0 mmol/L (Normal) Range: 21.0-32.0 CL 104 mmol/L (Normal) Range: 98-107 K 3.9 mmol/L (Normal) Range: 3.5-5.1 NA 141 mmol/L (Normal) Range: 136-145 CA 9.6 mg/dL (Normal) Range: 8.5-10.1 BUN/CRE 23.8 {RATIO} (Abnormal) Range: 10-20 EST GFR - AA 121 mL/min (Normal) EST GFR 100 mL/min (Normal) CREAT,SERUM 0.63 mg/dL (Normal) Range: 0.55-1.20 Comments: Please note revised CREATININE reference range zqbqdakal13/22/2015. BUN 15 mg/dL (Normal) Range: 7-18 GLU 97 mg/dL (Normal) Range: 70-110 5-Fba-038008:05 Immunofixation Urine Comments: Test performed at:[facility] [address] [place] [address] GEMMA Urine Comment (Normal) Comments: No monoclonality detected.Performed at: - [facility] [address] [id number] Director: Shady Jacksno PhD, Phone: [phone] 8-Psv-299302:05 PTH,INTACT Comments: ORDERED LIPID,LIVERDR.BENIGNO ORDERED BMP,PTHIN,VITD,URINE IMMUNTest performed at:[facility] [address] [facility] [place] [address] PTH,Intact 80 pg/mL (Abnormal) Range: 14-72 1-Ikx-384603:05 Vitamin D,25 Hydroxy Comments: Test performed at:[facility] [address]zv[address] [facility] [place] [address] Vitamin D 25-OH 35.6 ng/mL (Normal) Comments: Vitamin D 25(OH) Status Range Deficiency <20 ng/mL (50nmol/L) Insuffciency 20 - 30 ng/mL (50 - 75 nmol/L) Sufficiency 30 - 100 ng/mL (75 - 250 nmol/L) Toxicity >100 ng/mL (>250 nmol/L) 1-Ibq-726344:04 Basic Metabolic Profile (BMP) Comments: Test performed at:[facility] [address] [facility] [place] [id number] GAP 8 (Normal) Range: 5-15 CO2 27.0 mmol/L (Normal) Range: 21.0-32.0 CL 101 mmol/L (Normal) Range: 98-107 K 3.8 mmol/L (Normal) Range: 3.5-5.1 NA 136 mmol/L (Normal) Range: 136-145 CA 9.8 mg/dL (Normal) Range: 8.5-10.1 BUN/CRE 31.7 {RATIO} (Abnormal) Range: 10-20 EST GFR - AA 128 mL/min (Normal) EST GFR 106 mL/min (Normal) CREAT,SERUM 0.6 mg/dL (Normal) Range: 0.6-1.0 BUN 19 mg/dL (Abnormal) Range: 7-18 GLU 86 mg/dL (Normal) Range: 70-110 :04 Lipid Profile Comments: Test performed at:[facility] [address] [place] [address] VLDL 19 mg/dL (Normal) Range: 5-40 LDL 119 mg/dL (Normal) Range: 0-130 HDL 46 mg/dL (Normal) Comments: Reference Range HDL <40 mg/dL Low HDL Cholesterol HDL >or= 60 mg/dL High HDL Cholesterol TRIG 95 mg/dL (Normal) Range: 0-199 Comments: Serum Triglycerides Reference Interval Normal <150 mg/dL Borderline high 150 - 199 mg/dL High 200 - 499 mg/dL Very High > or = 500 mg/dL CHOL 184 mg/dL (Normal) Comments: <200 mg/dL Desirable 200-240 mg/dL Borderline >240 mg/dL High Risk :04 Liver Profile Comments: Test performed at:[facility] [address] [place] [address] D BILI 0.16 mg/dL (Normal) Range: 0.00-0.30 T BILI 0.70 mg/dL (Normal) Range: 0.20-1.00 ALT 32 U/L (Normal) Range: 12-78 ALK P 53 U/L (Normal) Range: 50-136 AST 17 U/L (Normal) Range: 15-37 GLOB 3.1 g/dL (Normal) Range: 2.7-4.2 ALB 4.0 g/dL (Normal) Range: 3.4-5.0 T PROT 7.1 g/dL (Normal) Range: 6.4-8.2 :03 24 HR Urine Creatinine Comments: Test performed at:[facility] [address] [place] [place] [address] UR.CREAT/24hr 1.3 {g/24_hr} (Normal) Range: 0.6-1.5 URINE CREAT 158.2 mg/dL (Normal) UR TOTAL VOLUME 0.85 L (Normal) UR COLLECT TIME 24.0 {HOURS} (Normal) 48-Qtn-88369:03 Miscellaneous Lab Procedure Comments: Comments: STONERISK PANEL #[id number](s) Ordered: STONERISK PANEL #[id number] performed at:[facility] [address] [place] [address] [facility] Comments: TEST RESULT UNITS REFERENCE INTERVALKidney Stone, Urine/SaturationUrine Volume 850 mL/24 hr 600 - 1600Urine Volume (Preservative) 850 LAB (Normal) mL/24 hr 600 - 1600Calcium, Urine 45.7 mg/dL Not Estab.Results confirmed on dilution.Calcium, Urine 388.5 High mg/24 hr 100.0 - 300.0Sodium, Urine 98 m TEST mol/L Not Estab.Sodium, Urine 83 mmol/24 hr 40 - 220Phosphorus, Urine 77.7 mg/dL Not Estab.Phosphorus, Urine 660.4 mg/24 hr 400.0 - 1300.0Uric Acid, U rine 42.2 mg/dL Not Estab.Uric Acid, Urine 359 mg/24 hr 250 - 750Potassium, Urine 86.6 mmol/L Not Estab.Potassium, Urine 73.6 mmol/24 hr 25 .0 - 125.0Chloride, Urine 115 mmol/L Not Estab.Chloride Urine 98 Low mmol/24 hr 110 - 250Citric Acid (Citrate) 753 mg/L Not Estab.Citric Acid(Citrate) 64 0 mg/24 hr 320 - 1240Oxalates, Urine 37 mg/L Not Estab.Oxalates, Urine 31 mg/24 hr 4 - 31Magnesium, Urine 13.5 mg/dL Not Estab.Magne sium, Ur(24 Hr) 115 mg/24 hr 12 - 293Sulfate, Urine 25 mEq/L Not Estab.Sulfate, Urine 21 mEq/24 hr 0 - 30Cystine, Quantitative, Urine 31.81 mg/L Not Estab.Cystine, Quant, Ur 27.04 mg/24 hr 10.00 - 100.00Osmolality, Urine 770 mOsmol/kg 300 - 900Creatinine, Urine 137.9 mg/dL N ot Estab.Creatinine, Urine 1172.2 mg/24 hr 800.0 - 1800.0pH, 24 Hr Urine 5.3Ammonia, Urine 51327 ug/dL Not Estab.Ammonia, Urine 20 mEq/24 hr Not E stab.Saturation Ratios:Calcium Oxalate 21.12 High ratio 0.00 - 6.00Brushite 1.78 ratio 0.00 - 3.00Monosodium Urate 2.48 ratio 0.00 - 4.00Uric Acid 5.05 High ratio 0.00 - 1.20Struvite 0.01 ratio 0.00 - 1.00Please note:Graphic analysis of results will follow:Scanned image report available in EMR TESTING PERFORMED AT [facility]. ORIGINAL REPORT ON FILE IN LAB CONTAINS ADDITIONAL TEST SITE INFORMATION. :32 Urine Culture,Comprehensive Comments: PATIENT NOT FASTINGPERFORMED BY: [facility] [id number] Information: SRC:[facility] [id number] Result 1 ECV (Abnormal) Comments: Escherichia coli, identified by an automated biochemical system.Greater than 100,000 colony forming units per mL S = Susceptible; I = Intermediate; R = Resistant P = Positiv e; N = Negative MICS are expressed in micrograms per mL Antibiotic RSLT#1 RSLT#2 RSLT#3 RSLT#4Amoxicillin/Clavulanic Acid RAmpicillin ICefepi me SCeftriaxone SCefuroxime RCephalothin RCiprofloxacin RErtapenem SGentamicin SImipenem SLevofloxacin RNitrofurantoin SPiperacillin STetracycline STobramycin STrimethoprim/Sulfa S Urine Final report Culture,Comprehensi (Abnormal) ve :54 Urinalysis, Office (54875) UA - LEUKOCYTE ESTERASE Trace (Normal) UA - NITRITE Positive (Normal) URINE UROBILINGN RUDDY TIMED 2 mg/dL (Normal) UA - PROTEIN 30 mg/dL (Normal) UA - PH 6.0 (Normal) UA - BLOOD Negative (Normal) UA - SPECIFIC GRAVITY 1.030 (Abnormal) UA - KETONES Small mg/dL (Normal) UA - BILIRUBIN Negative (Normal) UA - GLUCOSE Negative (Normal) :42 HgA1C , Office (23014) HgA1C , Office 5.7 % (Normal) Range: 4.6 - 7.1 :58 CBC W/Diff, Automated Comments: Test performed at:[facility] [address] [place], [place] [id number] Absolute Lymph 1.31 {X10_3/ul} (Normal) Range: 0.83-4.51 Absolute Neut 3.1 {X10_3/uL} (Normal) Range: 2.0-7.7 IM GRAN % 0.200 % (Normal) Range: 0.0-0.9 Comments: IG% - Immature Granulocytes (promyelocytes, myelocytes andmetamyelocytes) > 1% indicates that a LEFT SHIFT is Present. BASO% 0.4 % (Normal) Range: 0-1 EO% 5.0 % (Normal) Range: 0-5 MONO% 9.2 % (Normal) Range: 0-10 LY% 25.1 % (Normal) Range: 19-41 NEUT% 60.1 % (Normal) Range: 47-70 MPV 10.4 fL (Normal) Range: 6.2-12.0 PLT 243 K/mm3 (Normal) Range: 150-450 RDW SD 45.1 fL (Abnormal) Range: 35.1-43.9 RDW CV 13.6 % (Normal) Range: 11.6-14.6 MCHC 33.3 {g/gl} (Normal) Range: 32-36 MCH 30.6 pg (Normal) Range: 27.0-32.0 MCV 92.0 fL (Normal) Range: 81-99 HCT 45.1 % (Normal) Range: 37-47 HGB 15.0 g/dL (Normal) Range: 12.0-15.0 RBC 4.90 {M/mm3} (Normal) Range: 4.2-5.4 WBC 5.2 K/mm3 (Normal) Range: 4.4-11.0 07-Upv-705247:58 Vitamin B12 368 pg/mL (Normal) Comments: Test performed at:[facility] [address] [place] [address] Range: 211-911 42-Cvr-871654:58 Vitamin D,25 Hydroxy Comments: Test performed at:[facility] [address] [place] [address] Vitamin D 25-OH 31.4 ng/mL (Normal) Comments: Vitamin D 25(OH) Status Range Deficiency <20 ng/mL (50nmol/L) Insuffciency 20 - 30 ng/mL (50 - 75 nmol/L) Sufficiency 30 - 100 ng/mL (75 - 250 nmol/L) Toxicity >100 ng/mL (>250 nmol/L) 94-Yzk-720361:46 Bilirubin, Direct Comments: LIPID LIVERPATRICARTURO [facility] MGDR.FAST CMP LIPID VITD [id number] performed at:[facility] [address] [place] [address] D BILI 0.16 mg/dL (Normal) Range: 0.00-0.30 10-Ydf-407341:46 Comprehensive Metabolic Profil Comments: DR.OFORI OROPEZA LIVERASAEL [facility] MGDR.FAST CMP LIPID VITD [id number] performed at:[facility] [address] [place] [address] GAP 6 (Normal) Range: 5-15 CO2 29.0 mmol/L (Normal) Range: 21.0-32.0 CL 103 mmol/L (Normal) Range: 98-107 K 3.9 mmol/L (Normal) Range: 3.5-5.1 NA 138 mmol/L (Normal) Range: 136-145 T BILI 0.80 mg/dL (Normal) Range: 0.00-4.00 ALT 48 U/L (Normal) Range: 12-78 ALK P 74 U/L (Normal) Range: 50-136 AST 29 U/L (Normal) Range: 15-37 CA 9.5 mg/dL (Normal) Range: 8.5-10.1 A/G 1.1 {RATIO} (Normal) Range: 0.9-2.4 GLOB 3.7 g/dL (Normal) Range: 2.7-4.2 ALB 4.2 g/dL (Normal) Range: 3.4-5.0 T PROT 7.9 g/dL (Normal) Range: 6.4-8.2 BUN/CRE 28.3 {RATIO} (Abnormal) Range: 10-20 EST GFR - AA 128 mL/min (Normal) EST GFR 106 mL/min (Normal) CREAT,SERUM 0.6 mg/dL (Normal) Range: 0.6-1.0 BUN 17 mg/dL (Normal) Range: 7-18 GLU 87 mg/dL (Normal) Range: 70-110 15-Gdk-217210:46 Lipid Profile Comments: DR.OFORI SANDIP [facility] CMP LIPID VITD [id number] performed at:[facility] [address] [place] [id number] ; handled by cardio VLDL 25 mg/dL (Normal) Range: 5-40 LDL 142 mg/dL (Abnormal) Range: 0-130 HDL 50 mg/dL (Normal) Comments: Reference Range HDL <40 mg/dL Low HDL Cholesterol HDL >or= 60 mg/dL High HDL Cholesterol TRIG 127 mg/dL (Normal) Range: 0-199 Comments: Serum Triglycerides Reference Interval Normal <150 mg/dL Borderline high 150 - 199 mg/dL High 200 - 499 mg/dL Very High > or = 500 mg/dL CHOL 217 mg/dL (Abnormal) Comments: <200 mg/dL Desirable 200-240 mg/dL Borderline >240 mg/dL High Risk 42-Ija-887539:46 Magnesium Comments: DR.OFORI SANDIP [facility] MGDR.FAST CMP LIPID VITD [id number] performed at:[facility] [address] [place], [place] [address] MG 2.1 mg/dL (Normal) Range: 1.8-2.4 60-Nlz-734117:31 Comprehensive Metabolic Profil Comments: Test performed at:[facility] [address] [place] [address] GAP 6 (Normal) Range: 5-15 CO2 30.0 mmol/L (Normal) Range: 21.0-32.0 CL 104 mmol/L (Normal) Range: 98-107 K 3.6 mmol/L (Normal) Range: 3.5-5.1 NA 140 mmol/L (Normal) Range: 136-145 T BILI 0.60 mg/dL (Normal) Range: 0.00-4.00 ALT 31 U/L (Normal) Range: 12-78 ALK P 68 U/L (Normal) Range: 50-136 AST 20 U/L (Normal) Range: 15-37 CA 9.5 mg/dL (Normal) Range: 8.5-10.1 A/G 1.1 {RATIO} (Normal) Range: 0.9-2.4 GLOB 3.4 g/dL (Normal) Range: 2.7-4.2 ALB 3.7 g/dL (Normal) Range: 3.4-5.0 T PROT 7.1 g/dL (Normal) Range: 6.4-8.2 BUN/CRE 30.0 {RATIO} (Abnormal) Range: 10-20 EST GFR - AA 107 mL/min (Normal) EST GFR 88 mL/min (Normal) CREAT,SERUM 0.7 mg/dL (Normal) Range: 0.6-1.0 BUN 21 mg/dL (Abnormal) Range: 7-18 GLU 92 mg/dL (Normal) Range: 70-110 [id number] Free T3 Comments: Test performed at:[facility] [id number] [place] [address] FREE T3 3.1 pg/mL (Normal) Range: 2.18-3.98 [id number] Immunofixation Urine Comments: Test performed at:[facility] [id number] [place], [place] [id number] GEMMA Urine Comment (Normal) Comments: No monoclonality detected.Performed at: [address] [id number] Director: Shady Jackson PhD, Phone: [phone] [id number] T4 Free Direct Comments: Test performed at:[facility] [id number] [place], [place] [address] T4 FREE DIRECT 0.97 ng/dL (Normal) Range: 0.76-1.46 [id number] Thyroid Stim Hormone (TSH) Comments: Test performed at:[facility] [id number] [place], [place] [address] TSH 0.41 {uIU/mL} (Normal) Range: 0.358-3.74 [id number] EBV Panel ([id number]) Comments: PATIENT NOT FASTINGPERFORMED BY: [employer] [facility] [id number] Interpretation: SPRCS (Normal) Comments: EBV Interpretation Chart . Interpretation EBV-IgM EA(D)-IgG VCA-IgG EBNA-IgG . EBV Seronegative - - - - Early Phase + - - - Acute Primary + +or- + - Infection Convalescence/Past - +or- + + Infection Reactivated +or- + + + Infection + Antibody Present - Antibody Absent EBV Nuclear Antigen Ab, IgG 168.0 U/mL (Abnormal) Range: 0.0-17.9 Comments: Negative <18.0 Equivocal 18.0 - 21.9 Positive >21.9 EBV Ab VCA, IgG >600.0 U/mL (Abnormal) Range: 0.0-17.9 Comments: Negative <18.0 Equivocal 18.0 - 21.9 Positive >21.9 EBV Early Antigen Ab, IgG 9.6 U/mL (Abnormal) Range: 0.0-8.9 Comments: A second sample should be collected and tested no less than 2-4 weeks. Negative < 9.0 Equivocal 9 .0 - 10.9 Positive >10.9 EBV Ab VCA, IgM <36.0 U/mL (Normal) Range: 0.0-35.9 Comments: Negative <36.0 Equivocal 36.0 - 43.9 Positive >43.9 [id number] CBC W/AUTO DIFF WBC Comments: PATIENT NOT FASTINGPERFORMED BY: [facility] [facility] [id number] Information: [id number] (93517) Immature Grans (Abs) 0.0 {x10E3/uL} (Normal) Range: 0.0-0.1 Immature Granulocytes 0 % (Normal) Baso (Absolute) 0.0 {x10E3/uL} (Normal) Range: 0.0-0.2 Eos (Absolute) 0.2 {x10E3/uL} (Normal) Range: 0.0-0.4 Monocytes(Absolute) 0.8 {x10E3/uL} (Normal) Range: 0.1-0.9 Lymphs (Absolute) 1.3 {x10E3/uL} (Normal) Range: 0.7-3.1 Neutrophils (Absolute) 2.8 {x10E3/uL} (Normal) Range: 1.4-7.0 Basos 0 % (Normal) Eos 4 % (Normal) Monocytes 16 % (Normal) Lymphs 26 % (Normal) Neutrophils 54 % (Normal) Platelets 275 {x10E3/uL} (Normal) Range: 150-379 RDW 13.0 % (Normal) Range: 12.3-15.4 MCHC 34.4 g/dL (Normal) Range: 31.5-35.7 MCH 31.0 pg (Normal) Range: 26.6-33.0 MCV 90 fL (Normal) Range: 79-97 Hematocrit 38.4 % (Normal) Range: 34.0-46.6 Hemoglobin 13.2 g/dL (Normal) Range: 11.1-15.9 RBC 4.26 {x10E6/uL} (Normal) Range: 3.77-5.28 WBC 5.2 {x10E3/uL} (Normal) Range: 3.4-10.8 6-Zqn-162226:05 URINE LOW CULTURE-RUDDY COL Comments: PATIENT NOT FASTINGPERFORMED BY: [facility] [id number] Information: SRC:[facility] [id number] COUNT ([id number]) Result 1 MUG (Normal) Comments: Mixed urogenital [id number] Colonies/mL Urine Culture,Comprehensive Final report (Normal) 6-Gcl-036348:07 Urinalysis, Office (48864) UA - LEUKOCYTE ESTERASE Negative (Normal) UA - NITRITE Negative (Normal) URINE UROBILINGN RUDDY TIMED 2 mg/dL (Normal) UA - PROTEIN 30 mg/dL (Normal) UA - PH 6.0 (Normal) Comments: 5.5 UA - BLOOD Negative (Normal) UA - SPECIFIC GRAVITY 1.030 (Abnormal) UA - KETONES Negative mg/dL (Normal) UA - BILIRUBIN Negative (Normal) UA - GLUCOSE Negative (Normal) 96-Qvg-815057:56 Rapid Flu (84109 x 2) Influenza A Ag neg (Normal) 30-Xdq-153127:22 URINE LOW CULTURE-RUDDY COL Comments: PATIENT NOT FASTINGPERFORMED BY: [employer] [facility] [id number] Information: SRC:URC [id number] COUNT (47765) Result 1 MUG (Normal) Comments: Mixed urogenital flora3,000 Colonies/mL Urine Culture,Comprehensive Final report (Normal) 08-Gbi-876394:23 Urinalysis, Office (79450) UA - LEUKOCYTE ESTERASE Negative (Normal) UA - NITRITE Negative (Normal) URINE UROBILINGN RUDDY TIMED Normal mg/dL (Normal) UA - PROTEIN Negative mg/dL (Normal) UA - PH 6.0 (Normal) Comments: 5.5 UA - BLOOD Hemolyzed Trace (Normal) UA - SPECIFIC GRAVITY 1.030 (Abnormal) UA - KETONES 40 mg/dL (Abnormal) UA - BILIRUBIN Negative (Normal) UA - GLUCOSE Negative (Normal) 30-Ppe-56274:19 URINE CALCIUM RUDDY TIMED Comments: PATIENT NOT FASTINGPERFORMED BY: [employer] [facility] [id number] Information: START 10/05/14@630AM FINISH 24 Hour (18084) Calcium, Urine 24hr 330.0 {mg/24_hr} (Abnormal) Range: 100.0-300.0 Calcium, Urine 33.0 mg/dL (Normal) Comments: Results confirmed ondilution. 70-Qsi-748624:34 CBC W/Diff, Automated Comments: DR LAW ORDERED CBCD VITD CMP B12 TSHTIFFANIE NAVARRO ORDERED LIPID LIVERTest performed at:[facility] [address] [place] [address] ; handled by Tiffanie Navarro Absolute Lymph 1.41 {X10_3/ul} (Normal) Range: 0.83-4.51 Absolute Neut 2.8 {X10_3/uL} (Normal) Range: 2.0-7.7 IM GRAN % 0.000 % (Normal) Range: 0.0-0.9 Comments: IG% - Immature Granulocytes (promyelocytes, myelocytes andmetamyelocytes) > 1% indicates that a LEFT SHIFT is Present. BASO% 0.2 % (Normal) Range: 0-1 EO% 3.2 % (Normal) Range: 0-5 MONO% 11.1 % (Abnormal) Range: 0-10 LY% 28.5 % (Normal) Range: 19-41 NEUT% 57.0 % (Normal) Range: 47-70 MPV 10.2 fL (Normal) Range: 6.2-12.0 PLT 267 K/mm3 (Normal) Range: 150-450 RDW SD 45.0 fL (Abnormal) Range: 35.1-43.9 RDW CV 13.4 % (Normal) Range: 11.6-14.6 MCHC 33.1 {g/gl} (Normal) Range: 32-36 MCH 30.9 pg (Normal) Range: 27.0-32.0 MCV 93.2 fL (Normal) Range: 81-99 HCT 42.6 % (Normal) Range: 37-47 HGB 14.1 g/dL (Normal) Range: 12.0-15.0 RBC 4.57 {M/mm3} (Normal) Range: 4.2-5.4 WBC 4.9 K/mm3 (Normal) Range: 4.4-11.0 55-Lvk-690436:34 Comprehensive Metabolic Comments: Interface Comments: IDR V0-[id number] [facility] [id number] V0-[id number] Main V0- [id number] Lab [id number] 1034 [facility] [id number] V0-[id number] Main2 LIVER Routine Profil 1 PA.MMURRA INT Main3 [id number] 1039 [id number] Transmitted Cookie ARDON [id number] 0788-1 OV LABORD CD.Queries INT.COM CD.Queries INT.DX CD.Queries INT.ORDDT CD.Queries INT.OVID CD.Queries INT.OVORD CD.Queries OECOM CD.Queries OM.PTARRIVED CD.Queries OM.REASONDiagnosis:Diagnosis: IDR V0-[id number] [facility] [id number] V0-B2014 21290Myjzjyulx: [id number] Main V0-[id number] Lab [id number] 1034Diagnosis: RANGLE [id number] V0-[id number] Main2 LIPID RoutDiagnosis: ine 1 PA.MMURRA INT Main3 20140812 6 1034 [id number]: [id number] Transmitted LisData N [id number] 27555-Escnwmgon: 1 OV LAB ORD CD.Queries INT.COM 12 HOURS FASTING,Diagnosis: MAY HAVE WATER. PLEASE SEND CO PY TO PRIMARY CAREDiagnosis: PHYSICIAN. CD.Queries INT.DX CD.Queries INT.ORDDTDiagnosis: CD.Queries INT.OVID CD.Queries INT.OVORD CD.QueDiagnosis: sneha OECOM CD.Queries OM .PTARRIVED CD.Queries OM.Diagnosis: REASONTest performed at:[facility] [address] [place], [place] [address] GAP 3 (Abnormal) Range: 5-15 CO2 29.0 mmol/L (Normal) Range: 21.0-32.0 CL 107 mmol/L (Normal) Range: 98-107 K 4.5 mmol/L (Normal) Range: 3.5-5.1 NA 139 mmol/L (Normal) Range: 136-145 T BILI 0.70 mg/dL (Normal) Range: 0.00-4.00 ALT 31 U/L (Normal) Range: 12-78 ALK P 64 U/L (Normal) Range: 50-136 AST 16 U/L (Normal) Range: 15-37 CA 9.2 mg/dL (Normal) Range: 8.5-10.1 A/G 1.3 {RATIO} (Normal) Range: 0.9-2.4 GLOB 3.1 g/dL (Normal) Range: 2.7-4.2 ALB 4.1 g/dL (Normal) Range: 3.4-5.0 T PROT 7.2 g/dL (Normal) Range: 6.4-8.2 BUN/CRE 17.1 {RATIO} (Normal) Range: 10-20 EST GFR - AA 108 mL/min (Normal) EST GFR 89 mL/min (Normal) CREAT,SERUM 0.7 mg/dL (Normal) Range: 0.6-1.0 BUN 12 mg/dL (Normal) Range: 7-18 GLU 87 mg/dL (Normal) Range: 70-110 80-Rgz-662466:34 Lipid Profile Comments: Interface Comments: IDR V0-[id number] [facility] [id number] V0-[id number] Main V0-[id number] Lab [id number] 1034 [place]ANGLE [id number] V0-[id number] Main2 LIVER Routine 1 PA.MMURRA INT Main3 [id number] 1034 [id number] Transmitted LisData N [id number] 0788-1 OV LABORD CD.Queries INT.COM CD.Queries INT.DX CD.Queries INT.ORDDT CD.Queries INT.OVID CD.Queries INT.OVORD CD.Queries OECOM CD.Queries OM.PTARRIVED CD.Queries OM.REASONDiagnosis:Diagnosis: IDR V0-[id number] [facility] [id number] V0-B2014 86305Qvywfqzcf: [id number] Main V0-[id number] Lab 20140827 1034Diagnosis: KEV SU5197 V0-[id number] Main2 LIPID RoutDiagnosis: ine 1 PA.MMURRA INT Main3 20140812 6 1034 [id number]: 31917 Transmitted LisData N [id number] 28605-Jzugededf: 1 OV LAB ORD CD.Queries INT.COM 12 HOURS FASTING,Diagnosis: MAY HAVE WATER. PLEASE SEND CO PY TO PRIMARY CAREDiagnosis: PHYSICIAN. CD.Queries INT.DX CD.Queries INT.ORDDTDiagnosis: CD.Queries INT.OVID CD.Queries INT.OVORD CD.QueDiagnosis: sneha OECOM CD.Queries OM .PTARRIVED CD.Queries OM.Diagnosis: REASONTest performed at:[facility] [address] [place] [address] VLDL 20 mg/dL (Normal) Range: 5-40 LDL 95 mg/dL (Normal) Range: 0-130 HDL 50 mg/dL (Normal) Comments: Reference Range HDL <40 mg/dL Low HDL Cholesterol HDL >or= 60 mg/dL High HDL Cholesterol TRIG 102 mg/dL (Normal) Range: 0-199 Comments: Serum Triglycerides Reference Interval Normal <150 mg/dL Borderline high 150 - 199 mg/dL High 200 - 499 mg/dL Very High > or = 500 mg/dL CHOL 165 mg/dL (Normal) Comments: <200 mg/dL Desirable 200-240 mg/dL Borderline >240 mg/dL High Risk 98-Vnj-867405:34 Thyroid Stim Hormone Comments: Interface Comments: IDR V0- [id number] [facility] S602421 V0-[id number] Main V0- [id number] Lab 20140827 1034 RANGLE LU9674 V0-[id number] Main2 LIVER Routine (TSH) 1 PA.MMURRA INT Main3 [id number] 1037 [id number] Transmitted LisData N [id number] 0788-1 OV LABORD CD.Queries INT.COM CD.Queries INT.DX CD.Queries INT.ORDDT CD.Queries INT.OVID CD.Queries INT.OVORD CD.Queries OECOM CD.Queries OM.PTARRIVED CD.Queries OM.REASONDiagnosis:Diagnosis: IDR V0-[id number] [facility] [id number] V0-B2014 50358Xqwvscmgr: [id number] Main V0-[id number] Lab 20140827 1034Diagnosis: RANGLE MD1186 V0-[id number] Main2 LIPID RoutDiagnosis: ine 1 PA.MMURRA INT Main3 20140812 6 1036 [id number]: 71513 Transmitted LisData N [id number] 55796-Tqzpkbkbn: 1 OV LAB ORD CD.Queries INT.COM 12 HOURS FASTING,Diagnosis: MAY HAVE WATER. PLEASE SEND CO PY TO PRIMARY CAREDiagnosis: PHYSICIAN. CD.Queries INT.DX CD.Queries INT.ORDDTDiagnosis: CD.Queries INT.OVID CD.Queries INT.OVORD CD.QueDiagnosis: sneha OECOM CD.Queries OM .PTARRIVED CD.Queries OM.Diagnosis: REASONTest performed at:[facility] [address] [place] [address] TSH 0.44 {uIU/mL} (Normal) Range: 0.358-3.74 83-Clk-762980:34 Vitamin B12 439 pg/mL (Normal) Comments: Test performed at:[facility] [address] [place] [address] Range: 211-911 04-Xio-605825:34 Vitamin D,25 Hydroxy Comments: Test performed at:[facility] [address] [place] [address] Vitamin D 25-OH 45.3 ng/mL (Normal) Comments: Vitamin D 25(OH) Status Range Deficiency <20 ng/mL (50nmol/L) Insuffciency 20 - 30 ng/mL (50 - 75 nmol/L) Sufficiency 30 - 100 ng/mL (75 - 250 nmol/L) Toxicity >100 ng/mL (>250 nmol/L) 16-Xan-995658:13 HgA1C , Office (02687) HgA1C , Office 5.5 % (Normal) Range: 4.6 - 7.1 02-Rcj-97442:07 URINE LOW CULTURE-IDENTIFICATN Comments: PATIENT NOT FASTINGPERFORMED BY: [facility] HospitalZmlyat5974 [facility] [id number] Information: [id number] (78624) Antimicrobial MIHEAD (Normal) Comments: S = Susceptible; I = Intermediate; R = Resistant P = Positive; N = Negative MICS are expressed in micrograms per mL Antibiotic RSLT#1 RSLT#2 Susceptibility RSLT#3 RSLT#4Ciprofloxacin RLevofloxacin RNitrofurantoin SPenicillin STetracycline RVancomycin S Result 1 Enterococcus faecalis Comments: 600 Colonies/mLNote: this isolate is vancomycin-susceptible.This information is provided for epidemiologic purposesonly: vancomycin is not among the antibioticsrecommended for therapy of urinary tract (Abnormal) infectionscaused by Enterococcus.For Enterococcus species, cephalosporins, aminoglycosides (except forhigh-level resistance screening), clindamycin, and trimethoprim-sulfamethoxazole are not effective c linically. Fluoroquinolones areused primarily for treating urinary tract infections. (CLSI, [id number],2009) Urine Final report (Abnormal) Culture,Comprehensive 39-Ckh-86944:54 Urinalysis, Office (09750) UA - LEUKOCYTE ESTERASE Negative (Normal) UA - NITRITE Negative (Normal) URINE UROBILINGN RUDDY TIMED Normal mg/dL (Normal) UA - PROTEIN Negative mg/dL (Normal) UA - PH 6 (Abnormal) UA - BLOOD Non Hemolyzed Trace (Normal) UA - SPECIFIC GRAVITY 1.020 (Normal) UA - KETONES Negative mg/dL (Normal) UA - BILIRUBIN Negative (Normal) UA - GLUCOSE Negative (Normal) :54 LIPID VLDL 14 mg/dL (Normal) Range: 5-40 LDL 126 mg/dL (Normal) Range: 0-130 HDL 51 mg/dL (Normal) Comments: Reference RangeHDL <40 mg/dL Low HDL CholesterolHDL >or= 60 mg/dL High HDL Cholesterol TRIG 69 mg/dL (Normal) Range: 0-199 Comments: Serum Triglycerides Reference IntervalNormal <150 mg/dLBorderline high 150 - 199 mg/dLHigh 200 - 499 mg/ dLVery High > or = 500 mg/dL CHOL 191 mg/dL (Normal) Comments: <200 mg/dL Gsazictit662-177 mg/dL Borderline>240 mg/dL High Risk :54 LIVER BID 0.12 mg/dL (Normal) Range: 0.00-0.30 BIT 0.60 mg/dL (Normal) Range: 0.00-4.00 ALT 23 U/L (Normal) Range: 12-78 ALK 61 U/L (Normal) Range: 50-136 AST 13 U/L (Abnormal) Range: 15-37 ALB 3.8 g/dL (Normal) Range: 3.4-5.0 TPROT 7.0 g/dL (Normal) Range: 6.4-8.2 9-Voo-382668:34 CUUR URC See Note (Normal) Comments: ORGANISM 1: Escherichia coliColony Count >100,000 Escherichia coli: REACTIONAmoxacillin/Clavulanic Acid $ 8 SAmpicillin $ 16 RAmpicillin/Sulbactam $ 4 SCefazolin $ <=4 SCefepime $ <=1 SCeftriaxone $ <=1 SCiprofloxacin $ >=4 RESBL -Ertapenim $$$ <=0.5 SGentamicin $ <=1 SImipenem *NF <=0.25 SLevofloxacin $ >=8 RPiperacillin/Tazobactam $$ <=4 ST obramycin $ <=1 STrimethoprim/Sulfametho $ <=20 S(NF) indicates non-formulary drug at [facility]. Approval by Infectious DiseaseSpecialist required before non-formulary drugs may beordered and/or dispensed. 1-Hfs-029432:33 [facility] Comments: How was Urine Obtained? INT UMUC 1+ {/hpf} (Normal) UBAC 3+ {/hpf} (Normal) UEPIS 0-5 SEEN {/hpf} (Normal) Range: 5-10 URBC 0-5 SEEN {/hpf} (Normal) Range: 0-5 UWBC 5-10 SEEN {/hpf} (Normal) Range: 0-5 RAJESH 100 /ul (Abnormal) UOB 10 /ul (Abnormal) GOPAL Positive (Abnormal) UROBU Normal mg/dL (Normal) uPROTU Negative mg/dL (Normal) NICHO 5.0 (Normal) Range: 5.0 - 8.0 SGU 1.025 (Normal) Range: 1.002-1.030 KETU 5 mg/dL (Abnormal) BILIU Negative mg/dL (Normal) GLUR Normal mg/dL (Normal) UCLAR Sl. Cloudy (Normal) UCOL Yellow (Normal) 00-Wlf-446715:54 VITAMIN B-12 (CYANOCOBALAMIN) Comments: PATIENT NOT FASTINGPERFORMED BY: [facility] Hrdxxr9915 [facility] [id number] (53960) Vitamin B12 439 pg/mL (Normal) Range: 211-946 21-Joc-631038:54 METABOLIC PANEL, COMPREHENSIVE Comments: PATIENT NOT FASTINGPERFORMED BY: [facility] Appoqv6438 [facility] [id number] (66716) ALT (SGPT) 15 [iU]/L (Normal) Range: 0-32 AST (SGOT) 15 [iU]/L (Normal) Range: 0-40 Alkaline Phosphatase, S 65 [iU]/L (Normal) Range: 39-117 Bilirubin, Total 0.4 mg/dL (Normal) Range: 0.0-1.2 A/G Ratio 2.0 (Normal) Range: 1.1-2.5 Globulin, Total 2.3 g/dL (Normal) Range: 1.5-4.5 Albumin, Serum 4.5 g/dL (Normal) Range: 3.6-4.8 Protein, Total, Serum 6.8 g/dL (Normal) Range: 6.0-8.5 Calcium, Serum 10.1 mg/dL (Normal) Range: 8.6-10.2 Carbon Dioxide, Total 26 mmol/L (Normal) Range: 18-29 Chloride, Serum 104 mmol/L (Normal) Range: 97-108 Potassium, Serum 4.5 mmol/L (Normal) Range: 3.5-5.2 Sodium, Serum 143 mmol/L (Normal) Range: 134-144 BUN/Creatinine Ratio 34 (Abnormal) Range: 11-26 eGFR If Africn Am 108 mL/min/1.73 (Normal) eGFR If NonAfricn Am 94 mL/min/1.73 (Normal) Creatinine, Serum 0.61 mg/dL (Normal) Range: 0.57-1.00 BUN 21 mg/dL (Normal) Range: 8-27 Glucose, Serum 97 mg/dL (Normal) Range: 65-99 77-Ala-220322:54 CBC WITH MANUAL DIFF Comments: PATIENT NOT FASTINGPERFORMED BY: [facility] Dlgczy2754 [facility] [id number] Information: [id number] (25501) Immature Grans (Abs) 0.0 {x10E3/uL} (Normal) Range: 0.0-0.1 Immature Granulocytes 0 % (Normal) Range: 0-2 Baso (Absolute) 0.0 {x10E3/uL} (Normal) Range: 0.0-0.2 Eos (Absolute) 0.2 {x10E3/uL} (Normal) Range: 0.0-0.4 Monocytes(Absolute) 0.3 {x10E3/uL} (Normal) Range: 0.1-0.9 Lymphs (Absolute) 1.7 {x10E3/uL} (Normal) Range: 0.7-3.1 Neutrophils (Absolute) 3.2 {x10E3/uL} (Normal) Range: 1.4-7.0 Basos 0 % (Normal) Range: 0-3 Eos 3 % (Normal) Range: 0-5 Monocytes 6 % (Normal) Range: 4-12 Lymphs 31 % (Normal) Range: 14-46 Neutrophils 60 % (Normal) Range: 40-74 Platelets 295 {x10E3/uL} (Normal) Range: 150-379 RDW 13.5 % (Normal) Range: 12.3-15.4 MCHC 33.7 g/dL (Normal) Range: 31.5-35.7 MCH 30.6 pg (Normal) Range: 26.6-33.0 MCV 91 fL (Normal) Range: 79-97 Hematocrit 41.5 % (Normal) Range: 34.0-46.6 Hemoglobin 14.0 g/dL (Normal) Range: 11.1-15.9 RBC 4.58 {x10E6/uL} (Normal) Range: 3.77-5.28 WBC 5.3 {x10E3/uL} (Normal) Range: 3.4-10.8 40-Vyc-486814:44 PARATHORMONE (22932) Comments: PATIENT NOT FASTINGPERFORMED BY: [employer] Njcdnf5155 [facility] [place] [id number] PTH, Intact 38 pg/mL (Normal) Range: 15-65 99-Qre-504003:44 TSH (THYROID STIMULATING Comments: PATIENT NOT FASTINGPERFORMED BY: [employer] R[address] [place] [id number] Information: [id number] HORMONE) (23065) TSH 0.535 {uIU/mL} (Normal) Range: 0.450-4.500 92-Ejs-348925:44 PHOSPHORUS (26757) Comments: PATIENT NOT FASTINGPERFORMED BY: [employer] Oispks[address] [address] [place] [id number] Phosphorus, Serum 2.9 mg/dL (Normal) Range: 2.5-4.5 32-Zlf-344094:21 Calcium Serum (53546) Comments: 10 days; PATIENT NOT FASTINGPERFORMED BY: [place] 0362470 [facility] [id number] Information: [id number] Calcium, Serum 10.3 mg/dL (Abnormal) Range: 8.6-10.2 27-Ses-349653:32 Urinalysis, Office (62632) UA - LEUKOCYTE ESTERASE Negative (Normal) UA - NITRITE Negative (Normal) URINE UROBILINGN RUDDY TIMED Normal mg/dL (Normal) UA - PROTEIN Negative mg/dL (Normal) UA - PH 6.5 (Normal) UA - BLOOD Non Hemolyzed Trace (Normal) UA - SPECIFIC GRAVITY 1.010 (Normal) UA - KETONES Negative mg/dL (Normal) UA - BILIRUBIN Negative (Normal) UA - GLUCOSE Negative (Normal) 07-Rpt-013383:41 URINE LOW CULTURE (RUDDY Comments: PATIENT NOT FASTINGPERFORMED BY: [address] [id number] Information: SRC: [id number] COL COUNT) (17990) Result 1 MUG (Normal) Comments: Mixed urogenital yxvev768 Colonies/mL Urine Culture,Comprehensive Final report (Normal) 5-Eqo-618418:12 CALCIUM SERUM (89876) Comments: redraw in 10 days; PATIENT NOT FASTINGPERFORMED BY: [place] 0362470 [facility] [id number] Information: [id number] Calcium, Serum 10.1 mg/dL (Normal) Range: 8.6-10.2 91-Rzq-991528:13 CBC WITH MANUAL DIFF Comments: PATIENT NOT FASTINGPERFORMED BY: [place] 0362470 [facility] [id number] Information: [id number] (22390) Immature Grans (Abs) 0.0 {x10E3/uL} (Normal) Range: 0.0-0.1 Immature Granulocytes 0 % (Normal) Range: 0-2 Baso (Absolute) 0.0 {x10E3/uL} (Normal) Range: 0.0-0.2 Eos (Absolute) 0.3 {x10E3/uL} (Normal) Range: 0.0-0.4 Monocytes(Absolute) 0.7 {x10E3/uL} (Normal) Range: 0.1-0.9 Lymphs (Absolute) 1.6 {x10E3/uL} (Normal) Range: 0.7-3.1 Neutrophils (Absolute) 3.1 {x10E3/uL} (Normal) Range: 1.4-7.0 Basos 0 % (Normal) Range: 0-3 Eos 5 % (Normal) Range: 0-5 Monocytes 11 % (Normal) Range: 4-12 Lymphs 29 % (Normal) Range: 14-46 Neutrophils 55 % (Normal) Range: 40-74 Platelets 299 {x10E3/uL} (Normal) Range: 155-379 RDW 13.1 % (Normal) Range: 12.3-15.4 MCHC 33.5 g/dL (Normal) Range: 31.5-35.7 MCH 30.5 pg (Normal) Range: 26.6-33.0 MCV 91 fL (Normal) Range: 79-97 Hematocrit 42.1 % (Normal) Range: 34.0-46.6 Hemoglobin 14.1 g/dL (Normal) Range: 11.1-15.9 RBC 4.62 {x10E6/uL} (Normal) Range: 3.77-5.28 WBC 5.7 {x10E3/uL} (Normal) Range: 3.4-10.8 58-Ddb-716262:13 METABOLIC PANEL, COMPREHENSIVE Comments: PATIENT NOT FASTINGPERFORMED BY: [facility] HospitalLxfadv4322 [facility] [id number] (94230) ALT (SGPT) 15 [iU]/L (Normal) Range: 0-32 AST (SGOT) 15 [iU]/L (Normal) Range: 0-40 Alkaline Phosphatase, S 63 [iU]/L (Normal) Range: 39-117 Bilirubin, Total 0.3 mg/dL (Normal) Range: 0.0-1.2 A/G Ratio 1.8 (Normal) Range: 1.1-2.5 Globulin, Total 2.5 g/dL (Normal) Range: 1.5-4.5 Albumin, Serum 4.5 g/dL (Normal) Range: 3.6-4.8 Protein, Total, Serum 7.0 g/dL (Normal) Range: 6.0-8.5 Calcium, Serum 10.6 mg/dL (Abnormal) Range: 8.6-10.2 Carbon Dioxide, Total 26 mmol/L (Normal) Range: 19-28 Chloride, Serum 102 mmol/L (Normal) Range: 97-108 Potassium, Serum 4.4 mmol/L (Normal) Range: 3.5-5.2 Sodium, Serum 141 mmol/L (Normal) Range: 134-144 BUN/Creatinine Ratio 23 (Normal) Range: 11-26 eGFR If Africn Am 87 mL/min/1.73 (Normal) eGFR If NonAfricn Am 75 mL/min/1.73 (Normal) Creatinine, Serum 0.81 mg/dL (Normal) Range: 0.57-1.00 BUN 19 mg/dL (Normal) Range: 8-27 Glucose, Serum 95 mg/dL (Normal) Range: 65-99 01-Xez-577458:13 URINE LOW CULTURE (RUDDY Comments: PATIENT NOT FASTINGPERFORMED BY: [employer] [facility] Com[facility]itesWay[facility] [id number] Information: SRC:UR [id number] COL COUNT) (17734) Result 1 ECV (Abnormal) Comments: Escherichia coli, identified by an automated biochemical system.Greater than 100,000 colony forming units per mL S = Susceptible; I = Intermediate; R = Resistant P = Posi tive; N = Negative MICS are expressed in micrograms per mL Antibiotic RSLT#1 RSLT#2 RSLT#3 RSLT#4Amoxicillin/Clavulanic Acid RAmpicillin ICef epime SCeftriaxone SCefuroxime RCephalothin RCiprofloxacin RErtapenem SGentamicin SImipenem SLevofloxacin RNitrofurantoin SPiperacillin STetracycline STobramycin STrimethoprim/Sulfa S Urine Final report Culture,Comprehensi (Abnormal) ve 83-Uyi-251716:00 URINE LOW CULTURE-RUDDY COL Comments: PATIENT NOT FASTINGPERFORMED BY: [facility] [id number] Information: SRC:UR [id number] COUNT (65799) Result 1 NG36 (Normal) Comments: No growth in 36 - 48 hours. Urine Culture,Comprehensive Final report (Normal) 64-Bcp-012317:45 Urinalysis, Office (60079) UA - LEUKOCYTE ESTERASE Negative (Normal) UA - NITRITE Negative (Normal) URINE UROBILINGN RUDDY TIMED Normal mg/dL (Normal) UA - PROTEIN 30 mg/dL (Normal) UA - PH 6 (Abnormal) UA - BLOOD Negative (Normal) UA - SPECIFIC GRAVITY 1.030 (Abnormal) UA - KETONES 15 mg/dL (Abnormal) UA - BILIRUBIN Small (Normal) UA - GLUCOSE Negative (Normal) 42-[id number]:51 Urinalysis, Office (78398) UA - LEUKOCYTE ESTERASE Negative (Normal) UA - NITRITE Negative (Normal) URINE UROBILINGN RUDDY TIMED Normal mg/dL (Normal) UA - PROTEIN Negative mg/dL (Normal) UA - PH 6 (Abnormal) UA - BLOOD Negative (Normal) UA - SPECIFIC GRAVITY 1.030 (Abnormal) UA - KETONES 15 mg/dL (Abnormal) UA - BILIRUBIN Negative (Normal) UA - GLUCOSE Negative (Normal) [id number] URINE LOW CULTURE-RUDDY COL Comments: PATIENT NOT FASTINGPERFORMED BY: [facility] [id number] [facility] [id number] Information: SRC:UR [id number] COUNT (52430) Result 1 ECV (Normal) Comments: Escherichia coli, identified by an automated biochemical system.50,000-100,000 colony forming units per mL S = Susceptible; I = Intermediate; R = Resistant P = Positive; N = Negative MICS are expressed in micrograms per mL Antibiotic RSLT#1 RSLT#2 RSLT#3 RSLT#4Amoxicillin/Clavulanic Acid RAmpicillin ICefepime SCeftriaxone SCefuroxime ICephalothin RCiprofloxacin RErtapenem SGentamicin SImipenem SLevofloxacin RNitrofurantoin SPiperacillin STetracycline STobramycin STrimethoprim/Sulfa S Urine Final report (Normal) Culture,Comprehensiv e [id number] HgA1C , Office (20200) HgA1C , Office 5.7 % (Normal) Range: 4.6 - 7.1 [id number] Thin prep Pap Comments: Source.............Cervical;EndocervicalNo. of containers..01 CYTYC Thin Prep VialPATIENT NOT FASTINGPERFORMED BY: [facility] [address] [place] [id number] Information: [id number] ([id number]) Note: PAPSMR (Normal) Comments: The Pap smear is a screening test designed to aid in the detection ofpremalignant and malignant conditions of the uterine cervix. It is not adiagnostic procedure and should not be used as the sole mean s of detectingcervical cancer. Both false-positive and false-negative reports do occur. .This liquid based ThinPrep(R) pap test w as screened with theuse of an image guided system.The HPV DNA reflex criteria were not met with this specimen resulttherefore, no HPV testing was performed. . See Note . (Normal) DIAGNOSIS: SPRCS (Normal) Comments: NEGATIVE FOR INTRAEPITHELIAL LESION AND MALIGNANCY.Satisfactory for evaluation. Endocervical and/or squamous metaplasticcells (endocervical component) are present.V76.2 ; Screening for nguyen gnant neopla sm of the cervixJulie Sukh Burrows, Comfort Advisor (ASCP) [id number]:06 LIPID PANEL (35175) Comments: PATIENT WAS FASTINGPERFORMED BY: [facility] [id number] [facility] [id number] LDL/HDL Ratio 2.5 {ratio_units} (Normal) Range: 0.0-3.2 LDL Cholesterol Calc 138 mg/dL (Abnormal) Range: 0-99 VLDL Cholesterol Nahid 20 mg/dL (Normal) Range: 5-40 HDL Cholesterol 55 mg/dL (Normal) Comments: According to ATP-III Guidelines, HDL-C >59 mg/dL is considered anegative risk factor for CHD. Triglycerides 99 mg/dL (Normal) Range: 0-149 Cholesterol, Total 213 mg/dL (Abnormal) Range: 100-199 7-Hxr-165035:06 MICROALBUMIN: CREATININE RATIO Comments: PATIENT WAS FASTINGPERFORMED BY: [facility]97 [facility] [id number] ([id number]) AND ([id number]) Microalb/Creat Ratio 11.9 {mg/g_creat} (Normal) Range: 0.0-30.0 Microalbumin, Urine 15.8 ug/mL (Normal) Range: 0.0-17.0 Creatinine, Urine 132.4 mg/dL (Normal) Range: 15.0-278.0 4-Iqv-962761:06 METABOLIC PANEL, COMPREHENSIVE Comments: PATIENT WAS FASTINGPERFORMED BY: [employer]6370 [facility] [id number] ([id number]) ALT (SGPT) 22 [iU]/L (Normal) Range: 0-32 AST (SGOT) 17 [iU]/L (Normal) Range: 0-40 Alkaline Phosphatase, S 46 [iU]/L (Normal) Range: 39-117 Bilirubin, Total 0.6 mg/dL (Normal) Range: 0.0-1.2 A/G Ratio 1.7 (Normal) Range: 1.1-2.5 Globulin, Total 2.6 g/dL (Normal) Range: 1.5-4.5 Albumin, Serum 4.4 g/dL (Normal) Range: 3.6-4.8 Protein, Total, Serum 7.0 g/dL (Normal) Range: 6.0-8.5 Calcium, Serum 9.7 mg/dL (Normal) Range: 8.6-10.2 Carbon Dioxide, Total 26 mmol/L (Normal) Range: 19-28 Chloride, Serum 104 mmol/L (Normal) Range: 97-108 Potassium, Serum 4.1 mmol/L (Normal) Range: 3.5-5.2 Sodium, Serum 141 mmol/L (Normal) Range: 134-144 BUN/Creatinine Ratio 28 (Abnormal) Range: 11-26 eGFR If Africn Am 108 mL/min/1.73 (Normal) eGFR If NonAfricn Am 93 mL/min/1.73 (Normal) Creatinine, Serum 0.64 mg/dL (Normal) Range: 0.57-1.00 BUN 18 mg/dL (Normal) Range: 8-27 Glucose, Serum 99 mg/dL (Normal) Range: 65-99 7-Exr-242284:06 VITAMIN B-12 (CYANOCOBALAMIN) Comments: PATIENT WAS FASTINGPERFORMED BY: [facility] HospitalAhyzif8931 [facility] [id number] ([id number]) Vitamin B12 1401 pg/mL (Abnormal) Range: 211-946 6-Nrt-390153:06 CBC (AUTO) (43687) Comments: PATIENT WAS FASTINGPERFORMED BY: [facility] HospitalHaxhyv5569 [facility] [id number] Platelets 242 {x10E3/uL} (Normal) Range: 155-379 RDW 13.5 % (Normal) Range: 12.3-15.4 MCHC 33.5 g/dL (Normal) Range: 31.5-35.7 MCH 30.4 pg (Normal) Range: 26.6-33.0 MCV 91 fL (Normal) Range: 79-97 Hematocrit 41.8 % (Normal) Range: 34.0-46.6 Hemoglobin 14.0 g/dL (Normal) Range: 11.1-15.9 RBC 4.60 {x10E6/uL} (Normal) Range: 3.77-5.28 WBC 4.6 {x10E3/uL} (Normal) Range: 3.4-10.8 0-Vzq-323528:06 Vitamin D Hydroxy ([id number]) Comments: PATIENT WAS FASTINGPERFORMED BY: [facility] Vcsbbc2473 [facility] [id number] Vitamin D, 25-Hydroxy 58.4 ng/mL (Normal) Range: 30.0-100.0 Comments: Vitamin D deficiency has been defined by the [place] and an Endocrine Society practice guideline as alevel of serum 25-OH vitamin D less than 20 ng/mL (1,2).The Endocrine Society went on to further define vitamin Dinsufficiency as a level between 21 and 29 ng/mL (2).1. IOM ([place] [employer]). 2010. Dietary reference intakes for calcium and D. [place]: The National Academies Press.2. Robinson MF, [place], Bruce ROBLES, et al. Evaluation, treatment, and prevention of vitamin D deficiency: an Endocrine Society clinical practice guideline. JCEM. 2010; 96(7):1911-30. :48 HgA1C , Office (75498) HgA1C , Office 5.2 % (Normal) Range: 4.6 - 7.1 :52 URINE LOW CULTURE-RUDDY COL Comments: PATIENT NOT FASTINGPERFORMED BY: [facility] Tnnmue8153 [facility] [id number] Information: SRC:UR [id number] COUNT ([id number]) Result 1 MUG (Normal) Comments: Mixed urogenital prvux913 Colonies/mL Urine Culture,Comprehensive Final report (Normal) :53 Urinalysis, Office (19401) UA - BILIRUBIN Negative (Normal) UA - BLOOD Non Hemolyzed Trace (Normal) UA - GLUCOSE Negative (Normal) UA - KETONES Small mg/dL (Normal) UA - LEUKOCYTE ESTERASE Small (Normal) UA - NITRITE Negative (Normal) UA - PH 5.0 (Normal) UA - PROTEIN 30 mg/dL (Normal) UA - SPECIFIC GRAVITY 1.025 (Normal) URINE UROBILINGN RUDDY TIMED Normal mg/dL (Normal) :41 CRE GFRAA 72 mL/min (Normal) GFR 59 mL/min (Abnormal) CREAT 1.0 mg/dL (Normal) Range: 0.6-1.0 :30 SPINE THORACIC WITHOUT CONTRAS Radiology Report See Note Comments: PROCEDURE: CT THORACIC SPINE WITHOUT CONTRAST REASON FOR EXAM: Female, 67 years old. Possible compression fracture. RADIATION DOSAGE (If Supplied By Facility): CTDIvol = ( 28.02 ) mGy, DLP=( 833.4 (Normal) 5 ) mGycm TECHNIQUE: The patient was scanned in a multi detector CT scanner.Highresolution imaging was performed. Images were obtained from T1 to [id number]. Sagittal and coronal images were reconstruc anum. COMPARISON: None. FINDINGS:There is evidence of demineralization of the thoracic vertebrae. Thereisapproximately 50% collapse of the T3 vertebra. There is los s of heightofthe T8 to vertebra. There is sclerosis of the T2 vertebra most likelysecondary to decompression. There is no evidence of retropulsion. There is an increased kyphosis of the thoracic spine . There is nosubstantial scoliosis. There is multilevel endplate spondylosis of thethoracic spine. There is multilevel degenerative disc disease with lossofthe disc space heights. There is evidence of atherosclerotic calcification of the descendingthoracic aorta. IMPRESSION:Multilevel degenerative disk disease with spondylosis.Osteoporosis with loss of height of the T2 and T3 vertebrae. Signed:Corey Saldaña M.D.February 10, 2013 at 2:48:17 PM [id number] Signed GP/GP If you are the referring physician and would like to consult with [facility] who provided this interpretation, please contact José Miguel Sheikh at [phone]. If this radiologist is unavailable, youwill be directed to another radiologist to assist. If you are a zenon ent with a question regarding this report, pleasecontactyour referring physician directly. Professional Interpretation Provided By: [employer], Phone , These documents con tain legally protected and confidential healthinformation intended only for the use of the individual or entity namedabove. If you are not the intended recipient, you are hereby notifiedthatany disclosu re, copying, distribution, or other use of these documents isstrictly prohibited. If you have received this information in error,pleasenotify the sender immediately and arrange for the return or destruc tionofthese documents. Dictated on 02/10/13 1448 by Ileana Saldaña MDribed on 02/10/13 1450 by ITS IMPORTSign by Corey Saldaña MD on 02/10/13 145 Sign by: Corey Saldaña MD 10-Feb-20130:00 BRAIN W/WO CONTRAST Radiology Report See Note Comments: PROCEDURE: MRI BRAIN WITH AND WITHOUT CONTRAST REASON FOR EXAM: Female, 67 years old. Meningioma. TECHNIQUE: Standardized multiplanar fat and water weighted pulsesequences were obtained. 7 ml of (Normal) Gadavist contrast material wasadministered intravenously for the contrast portion of the examination. COMPARISON: CT brain without contrast 01/23/2013. FINDINGS:Ther e is mild cerebral atrophy with widening of the extra-axial spacesandventricular dilatation. There are a limited number of small white matterhyperintensities, distributed throughout the deep white belle er tracts ofthe cerebral hemispheres, consistent with mild chronic white matterischemic changes. There is no evidence for recent intracranial ischemiaorother cause of cytotoxic edema on diffusion weigh anum imaging (DWI).Focalhypointensity on gradient echo sequence corresponding to small calcifiedleft frontal meningioma (please see comments below), with no additionaldemonstrated abnormal magnetic susce ptibility or hemosiderin stain. Normal basal ganglia and thalami. No localized extra-axial fluidcollection. Normal flow voids within the major intracranial circulation suggestingpatency by spin echo cr iteria. Small enhancing extra-axial mass overlies the left frontal lobe,corresponding in location to the calcification on recent head CT. Thishasa broad dural base with smooth margins, and measures sebastien roximately 7 x 13mm in transverse and longitudinal dimensions. Appearance is mostconsistent with small meningioma. Faint, small linear enhancingstructurein the right midbrain and tommie may represent a small incidentaldevelopmental venous anomaly versus somewhat unusually conspicuousperforating vessel. Incidental small developmental venous anomaly isadditionally suspected in the right superior cerebe llar hemisphere,coursing towards the tentorium. No additional demonstrated pathologicintracranial contrast enhancement. Normal appearance of the pituitary gland, infundibulum, optic chiasm andhypothala viviana region, within the constraints of a routine brain study.Normal tectal plate and pineal gland. Normal midbrain, tommie and medulla. Normal cerebellum. Normal basalcisterns. Normal bilateral temporal bones. Normal visualized bilateralinternal auditory canal structures, given routine brain imaging. No demonstrated orbital abnormality, within the constraints of a routinebrain study. Normal visualize d paranasal sinuses. Normal visualizedextracranial soft tissue structures. Normal appearance of the calvariumand visualized osseous skull base structures. Normal visualized uppercervical spine. IMPRESSION:Small left frontal meningioma. Suspected small incidental developmental venous anomalies, as notedabove. Findings consistent with mild chronic microvascular ischem ic diseaseinvolving the supratentorial white matter. Signed:Court Rutherford M.D.February 10, 2013 at 4:25:07 PM [id number] Signed DN/DN If you are the referring physician and would like t o consult with theradiologist who provided this interpretation, please contact Court Lund M.D. at [phone]. If this radiologist is unavailable, youwillbe directed to another radiologist to rica bailon. If you are a patient with a question regarding this report, pleasecontactyour referring physician directly. Professional Interpretation Provided By: [employer], Phone ,Fax These documents contain legally protected and confidential healthinformation intended only for the use of the individual or entity namedabove. If you are not the intended recipient, you are hereby not ifiedthatany disclosure, copying, distribution, or other use of these documents isstrictly prohibited. If you have received this information in error,pleasenotify the sender immediately and arrange for the return or destructionofthese documents. Dictated on 02/10/131624 by COURT RUTHERFORD MD RTranscribed on 02/10/131626 by ITS IMPORTSign by COURT RUTHERFORD MD on 02/10/131627 Sign by: COURT RUTHERFORD MD 33-Yso-473481:10 BRAIN/HEAD WITHOUT CONTRAST Radiology Report See Note Comments: PROCEDURE: CT BRAIN WITHOUT CONTRAST REASON FOR EXAM: Female, 67 years old. Unequal pupils. Status postrecent fall. RADIATION DOSAGE (If Supplied By Facility): CTDIvol = ( 62 ) mGy, DLP =(900 ) m (Normal) Gycm TECHNIQUE: Transaxial CT imaging of the brain was performed withoutadministration of intravenous contrast material. COMPARISON: None. FINDINGS:Normal soft tis amos structures. Normal calvarium. There is a 7 mm x 6 mmdense calcification along the inner table of the left frontal bone. Thismay represent a small calcified meningioma. There is mild cerebral atro phy with widening of the extra-axial spacesandventricular dilatation. Normal white matter tracts of the cerebralhemispheres. Normal basal ganglia and thalami. Normal brainstem.Normalcerebellum. There is no intracranial hemorrhage. There are no findings of an acuteischemic infarction. There is calcification of the cavernous portions ofthe internal carotid arteries and vertebral arteries bilaterall y. There is mucosal thickening along the posterior portion of the rightethmoid sinus. IMPRESSION:Chronic involutional changes of the brain.Findings suggestive of a sma ll calcified meningioma deep to the innertableof the left frontal bone. Signed:Corey Saldaña M.D.January 23, 2013 at 3:28:07 PM [id number] Signed GP/GP If you are the referring [facility] and would like to consult with theradiologist who provided this interpretation, please contact José Miguel Sheikh at [phone]. If this radiologist is unavailable, youwill be directed to another radiologist to assist. If you are a patient with a question regarding this report, pleasecontactyour referring physician directly. Professional Interpretation Provided By: [employer], Phone , These documents contain legally protected and confidential healthinformation intended only for the use of the individual or entity namedabove. If you are not the intended re cipient, you are hereby notifiedthatany disclosure, copying, distribution, or other use of these documents isstrictly prohibited. If you have received this information in error,pleasenotify the sender i mmediately and arrange for the return or destructionofthese documents. Dictated on 01/23/13 1528 by Michael METZ,Valeryscribed on 01/23/13 1530 by ITS IMPORTSign by Michael METZ,Corey on 1531 Sign by: Corey Saldaña MD 53-Pin-847330:10 THORACIC SPINE 3 VIEWS Radiology Report See Note Comments: PROCEDURE: X-RAY - THORACIC SPINE REASON FOR EXAM: Female, 67 years old. Back pain following a recentfall. TECHNIQUE: Three views of the thoracic spine were obtained. COMPARISON: None. (Normal) FINDINGS:There is an increased kyphosis of the thoracic spine. There arewedgeshaped vertebrae of the mid thoracic spine, consistent with compressiondeformities (age inde terminant). There is multi-level disc spacenarrowingwith endplate spondylosis of the thoracic spine. There is tortuosity of the descending thoracic aorta. IMPRESSION: Demineralization and multilevel degenerative changes. Signed:Corey Saldaña M.D.January 23, 2013 at 3:37:41 PM [id number] Signed GP/GP If you are the referring physician and would l elizabeth to consult with theradiologist who provided this interpretation, please contact José Miguel Sheikh at [phone]. If this radiologist is unavailable, youwill be directed to another radiologis t to assist. If you are a patient with a question regarding this report, pleasecontactyour referring physician directly. Professional Interpretation Provided By: [employer], Phone ,Fax These documents contain legally protected and confidential healthinformation intended only for the use of the individual or entity namedabove. If you are not the intended recipient, you are h ereby notifiedthatany disclosure, copying, distribution, or other use of these documents isstrictly prohibited. If you have received this information in error,pleasenotify the sender immediately and arr eleazar for the return or destructionofthese documents. Dictated on 01/23/131536 by Michael METZ,GabrieleTranscribed on 01/23/13 153 by ITS IMPORTSign by Michael METZ,Corey on 01/23/13 1540 Sig n by: Michael METZ,Corey :11 Microscopic Examination Comments: PATIENT WAS FASTINGPERFORMED BY: [employer] [id number] Bacteria Few (Normal) Mucus Threads Present (Normal) Epithelial Cells (non renal) 0-10 {/hpf} (Normal) Range: 0 - 10 RBC 0-3 {/hpf} (Normal) Range: 0 - 3 WBC 0-5 {/hpf} (Normal) Range: 0 - 5 :11 URINALYSIS, W/ MICRO (06749) Comments: PATIENT WAS FASTINGPERFORMED BY: [employer] Juxppy5912 [facility] [id number] Microscopic Examination See below: (Normal) Microscopic Examination MICRON (Normal) Comments: Microscopic follows if indicated. Nitrite, Urine Negative (Normal) Urobilinogen,Semi-Qn 0.2 mg/dL (Normal) Range: 0.0-1.9 Bilirubin Negative (Normal) Occult Blood Negative (Normal) Ketones Negative (Normal) Glucose Negative (Normal) Protein Negative (Normal) WBC Esterase Negative (Normal) Appearance Clear (Normal) Urine-Color Yellow (Normal) pH 6.0 (Normal) Range: 5.0-7.5 Specific [place] 1.019 (Normal) Range: 1.005-1.030 :11 METABOLIC PANEL, Comments: PATIENT WAS FASTINGPERFORMED BY: [employer] Twwptz9657 [facility] [id number] Information: [id number] COMPREHENSIVE ([id number]) ALT (SGPT) 18 [iU]/L (Normal) Range: 0-32 AST (SGOT) 20 [iU]/L (Normal) Range: 0-40 Alkaline Phosphatase, S 56 [iU]/L (Normal) Range: 25-165 Bilirubin, Total 0.6 mg/dL (Normal) Range: 0.0-1.2 A/G Ratio 1.8 (Normal) Range: 1.1-2.5 Globulin, Total 2.5 g/dL (Normal) Range: 1.5-4.5 Albumin, Serum 4.5 g/dL (Normal) Range: 3.6-4.8 Protein, Total, Serum 7.0 g/dL (Normal) Range: 6.0-8.5 Calcium, Serum 9.8 mg/dL (Normal) Range: 8.6-10.2 Carbon Dioxide, Total 24 mmol/L (Normal) Range: 20-32 Chloride, Serum 104 mmol/L (Normal) Range: 97-108 Potassium, Serum 4.2 mmol/L (Normal) Range: 3.5-5.2 Sodium, Serum 140 mmol/L (Normal) Range: 134-144 BUN/Creatinine Ratio 28 (Abnormal) Range: 11-26 eGFR If Africn Am 108 mL/min/1.73 (Normal) eGFR If NonAfricn Am 93 mL/min/1.73 (Normal) Creatinine, Serum 0.64 mg/dL (Normal) Range: 0.57-1.00 BUN 18 mg/dL (Normal) Range: 8-27 Glucose, Serum 102 mg/dL (Abnormal) Range: 65-99 :11 VITAMIN B-12 (CYANOCOBALAMIN) Comments: PATIENT WAS FASTINGPERFORMED BY: [employer] [place] MediaMir[place]te [place] [id number] ([id number]) Vitamin B12 314 pg/mL (Normal) Range: 211-946 :11 TSH (47498) Comments: PATIENT WAS FASTINGPERFORMED BY: [employer] Iqjfup2768 [place] Media[place]amon[place] [id number] TSH 0.679 {uIU/mL} (Normal) Range: 0.450-4.500 :11 Vitamin D Hydroxy (38244) Comments: PATIENT WAS FASTINGPERFORMED BY: [employer]6370 [facility] [id number] Vitamin D, 25-Hydroxy 69.4 ng/mL (Normal) Range: 30.0-100.0 Comments: Vitamin D deficiency has been defined by the [place] [employer] and an Endocrine Society practice guideline as alevel of serum 25-OH vitamin D less than 20 ng/mL (1,2).The Endocrine Society went on to further define vitamin Dinsufficiency as a level between 21 and 29 ng/mL (2).1. IOM ([place] [employer]). 2010. Dietary reference intakes for calcium and D. [place]: The National Academies Press.2. Robinson MF, [place], Bruce ROBLES, et al. Evaluation, treatment, and prevention of vitamin D deficiency: an Endocrine Society clinical practice guideline. JCEM. 2010; 96(7):1911-30. :11 LIPID PANEL (66624) Comments: PATIENT WAS FASTINGPERFORMED BY: [employer]6370 [facility] [id number] LDL/HDL Ratio 2.7 {ratio_units} (Normal) Range: 0.0-3.2 LDL Cholesterol Calc 130 mg/dL (Abnormal) Range: 0-99 VLDL Cholesterol Nahid 12 mg/dL (Normal) Range: 5-40 HDL Cholesterol 48 mg/dL (Normal) Comments: According to ATP-III Guidelines, HDL-C >59 mg/dL is considered anegative risk factor for CHD. Triglycerides 59 mg/dL (Normal) Range: 0-149 Cholesterol, Total 190 mg/dL (Normal) Range: 100-199 :33 EBV Panel (51714) Comments: PATIENT NOT FASTINGPERFORMED BY: [employer] Cudlxk2282 [facility] [id number] Interpretation: SPRCS (Normal) Comments: EBV Interpretation Chart . Interpretation VCA-IgM EA-IgG VCA-IgG NA-ABS . Susceptible - - - - Acute Infection + +or- +or- - Convalescent Phase +or- +or- + + Chronic or Reactivated - + + +or- Old Infection - - +or- + + Antibody Present - Antibody Absent EBV Ab VCA, IgG >8.0 {AI} (Abnormal) Range: 0.0-0.8 Comments: Negative <0.9 Equivocal 0.9 - 1.0 Positive >1.0 EBV Nuclear Antigen Ab, IgG >8.0 {AI} (Abnormal) Range: 0.0-0.8 Comments: Negative <0.9 Equivocal 0.9 - 1.0 Positive >1.0 EBV Ab VCA, IgM <0.2 {AI} (Normal) Range: 0.0-0.8 Comments: Negative <0.9 Equivocal 0.9 - 1.0 Positive >1.0 EBV Early Antigen Ab, IgG <0.2 {AI} (Normal) Range: 0.0-0.8 Comments: Negative <0.9 Equivocal 0.9 - 1.0 Positive >1.0 49-Oqj-48535:33 CBC WITH MANUAL DIFF Comments: PATIENT NOT FASTINGPERFORMED BY: [facility] Wfwahj3096 [facility] [id number] Information: [id number] ([id number]) Immature Grans (Abs) 0.0 {x10E3/uL} (Normal) Range: 0.0-0.1 Immature Granulocytes 0 % (Normal) Range: 0-2 Baso (Absolute) 0.0 {x10E3/uL} (Normal) Range: 0.0-0.2 Eos (Absolute) 0.2 {x10E3/uL} (Normal) Range: 0.0-0.4 Monocytes(Absolute) 0.5 {x10E3/uL} (Normal) Range: 0.1-1.0 Lymphs (Absolute) 1.6 {x10E3/uL} (Normal) Range: 0.7-4.5 Neutrophils (Absolute) 3.0 {x10E3/uL} (Normal) Range: 1.8-7.8 Basos 0 % (Normal) Range: 0-3 Eos 4 % (Normal) Range: 0-7 Monocytes 10 % (Normal) Range: 4-13 Lymphs 30 % (Normal) Range: 14-46 Neutrophils 56 % (Normal) Range: 40-74 Platelets 301 {x10E3/uL} (Normal) Range: 140-415 RDW 13.4 % (Normal) Range: 12.3-15.4 MCHC 34.0 g/dL (Normal) Range: 31.5-35.7 MCH 30.9 pg (Normal) Range: 26.6-33.0 MCV 91 fL (Normal) Range: 79-97 Hematocrit 42.6 % (Normal) Range: 34.0-46.6 Hemoglobin 14.5 g/dL (Normal) Range: 11.1-15.9 RBC 4.70 {x10E6/uL} (Normal) Range: 3.77-5.28 WBC 5.3 {x10E3/uL} (Normal) Range: 4.0-10.5 04-Swf-77423:06 BILAT SCRN DIGITAL & CAD Radiology Report See Note (Normal) Comments: MAMMOGRAPHY - BILATERAL SCREENING REASON FOR EXAM: Female, 66 years old. Routine annual screeningexamination. PERTINENT HISTORY: Daughter with breast cancer. TECHNIQUE: Digital examin ation. Medi olateral oblique (MLO) andcraniocaudad (CC) views of both breasts were obtained. CAD: CAD wasperformed on this study. COMPARISON: Comparison is made with prior studies dated July 25nd 2010. FINDINGS:The breast composition is heterogeneously dense. There are no dominant masses or suspicious calcifications. No other significant abnormalities are identified. There has been nosigni ficant change since the prior study. IMPRESSION:Stable bilateral screening mammogram. Yearly follow-up recommended. (A) ASSESSMENT CATEGORY:BIRADS Category 2: Benign finding(s). A letter regarding these resultswill be sent to the patient by the facility within 30 days. Approximately 10% of breast cancers are not detected by mammography. Anormal mammogram should not delay biopsy of a clinically s uspiciousabnormality. Signed:Corey Saldaña M.D.July 30, 2012 at 8:47:07 AM [id number] Signed GP/GP If you are the referring physician and would like to consult with mariel hurd who provided this interpretation, please contact José Miguel Sheikh at [phone]. If this radiologist is unavailable, youwill be directed to another radiologist to assist. If you are a pa tient with a question regarding this report, pleasecontactyour referring physician directly. Professional Interpretation Provided By: [facility], Phone , These documents c ontain legally protected and confidential healthinformation intended only for the use of the individual or entity namedabove. If you are not the intended recipient, you are hereby notifiedthatany disclo sure, copying, distribution, or other use of these documents isstrictly prohibited. If you have received this information in error,pleasenotify the sender immediately and arrange for the return or destr uctionofthese documents. Dictated on 07/30/12805 by Michael METZ,GabrieleTranscribed on 07/30/12 0856 by ITS IMPORTSign by Michael METZ,Corey on 07/30/12 0858 Sign by: Corey Saldaña MD 18-Fym-925288:10 URINE LOW CULTURE-IDENTIFICATN Comments: PATIENT NOT FASTINGPERFORMED BY: [facility] HospitalQgsxxr3037 [facility] [id number] Information: [id number] ([id number]) Antimicrobial MIHEAD (Normal) Comments: S = Susceptible; I = Intermediate; R = Resistant P = Positive; N = Negative MICS are expressed in micrograms per mL Antibiotic RSLT#1 RSLT#2 Susceptibility RSLT#3 RSLT#4Ciprofloxacin RLevofloxacin RNitrofurantoin SPenicillin STetracycline RVancomycin S Result 1 Enterococcus faecalis Comments: 600 Colonies/mLNote: this isolate is vancomycin-susceptible.This information is provided for epidemiologic purposesonly: vancomycin is not among the antibioticsrecommended for therapy of urinary tract (Normal) infectionscaused by Enterococcus.For Enterococcus species, cephalosporins, aminoglycosides (except forhigh-level resistance screening), clindamycin, and trimethoprim-sulfamethoxazole are not effective c linically. Fluoroquinolones areused primarily for treating urinary tract infections. (CLSI, J428-C81,2009) Urine Final report (Normal) Culture,Comprehensive 75-Aux-481628:54 Urinalysis, Office (90422) UA - BILIRUBIN Negative (Normal) UA - BLOOD Negative (Normal) UA - GLUCOSE Negative (Normal) UA - KETONES Negative mg/dL (Normal) UA - LEUKOCYTE ESTERASE Trace (Normal) UA - NITRITE Negative (Normal) UA - PH 7.0 (Normal) UA - PROTEIN Negative mg/dL (Normal) UA - SPECIFIC GRAVITY 1.025 (Normal) URINE UROBILINGN RUDDY TIMED Normal mg/dL (Normal) 15-Dug-12713:05 DEXA BONE DENSITY STUDY () Radiology Report See Note (Normal) Comments: PROCEDURE: DUAL ENERGY X-RAY ABSORPTIOMETRY / DXA REASON FOR EXAM: Female, 66 years old. Osteopenia. TECHNIQUE: Bone Mineral Density (BMD) measurements of lumbar spine andbilateral hips were obtai vimal. COMPARISON: Comparison is made with prior study dated January 10, 2010. FINDINGS: Lumbar Spine (L1-L4): g/cm2 (0.949) / T-score (-1.9) / Z-score (-0.3) Left Femur Total: g/cm2 (0.733) / T-sco re (-2.2) / Z-score (-1.0)Left Femoral Neck: g/cm2 (0.671) / T-score (-2.6) / Z-score (-1.2)Right Femur Total: g/cm2 (0.737) / T-score (-2.2) / Z-score (-0.9)Right Femoral Neck: g/cm2 (0.65 2) / T-score (-2.8) / Z-score (-1.3) The T-Scores on the most recent prior examination were: Lumbar Spine (L1-L4): which represents a worsening of 5.5%.Left Femur Total: which represents a worsening of 0.5%.Right Femur Total: which represents an improvement of 2.1%. IMPRESSION:The patient is considered osteoporotic, as outlined above, according toWorld Health Organization (WHO) carmelo olson. Fracture risk is high. Reference Information:The T-score is the number of standard deviations above or below thestandard which is normal for young adults at their peak bone mineraldensity. The Wo d Health Organization (WHO) interprets the T-scores asfollows: Above -1 Normal bone densityBetween -1 and -2.5 OsteopeniaEqual to / or below -2.5 Osteoporosis As a practical clinical alex deline, osteopenia may be graded as follows:Mild -1 through -1.5Moderate - 1.6 through -2.0Severe -2.1 through -2.4 The Z-score is the number of standard deviations above or below age-matchedcontrols. A Z-score of less than -1.5 would be considered abnormal. References:1. NIH Osteoporosis and Related Bone Diseases http://www.osteo.org2. International Society for Clinical Densitometry http://www.is cd.org3. National Osteoporosis Foundation http://www.nof.org Signed:Corey Saldaña M.D.May 06, 2012 at 1:38:17 PM [id number] Signed GP/GP If you are the referring physicia n and would like to consult with theradiologist who provided this interpretation, please contact José Miguel Sheikh at [phone]. If this radiologist is unavailable, youwill be directed to [facility] radiologist to assist. If you are a patient with a question regarding this report, pleasecontactyour referring physician directly. Professional Interpretation Provided By: [employer], Phone , These documents contain legally protected and confidential healthinformation intended only for the use of the individual or entity namedabove. If you are not the intended recipie nt, you are hereby notifiedthatany disclosure, copying, distribution, or other use of these documents isstrictly prohibited. If you have received this information in error,pleasenotify the sender elena orellana and arrange for the return or destructionofthese documents. Dictated on 05/06/12 0916 by Ninfa Saldaña MDranscribed on 05/06/12 1345 by ITS IMPORTSign by Corey Saldaña MD on 2 1346 Sign by: Corey Saldaña MD 14-Toj-559603:18 L/S SPINE,MIN 4 VIEWS Radiology Report See Note (Normal) Comments: PROCEDURE: X-RAY - LUMBAR SPINE REASON FOR EXAM: Female, 66 years old. Low back pain. TECHNIQUE: Five views of the lumbar spine were obtained. COMPARISON: Comparison is made with prior study phuc rowan May 13, 2007. FINDINGS:Normal lumbar lordosis. There is no substantial scoliosis. T12-L1: There is a moderate degree of disk space narrowing withspondylosis. L1-2: There is a moderate degree o f disk space narrowing withspondylosisand subchondral sclerosis. There is evidence of facet jointosteoarthritis. L2-3: There is a moderate degree of disk space narrowing with anteriorspondylosis and f acet joint osteoarthritis. L3-4: There is a moderate degree of disk space narrowing with facetjointosteoarthritis. L4-5: There is a marked degree of the space narrowing with facet jointosteoarthritis. L5-S1: There is a marked degree of disk space narrowing with facet jointosteoarthritis. There is a grade 2 anterior listhesis of L5 on S1. There is atherosclerotic calcification of the abdominal aort a without ademonstrated aneurysm. IMPRESSION:Degenerative changes of the spine, as detailed above. Signed:Corey Saldaña M.D.January 10, 2012 at 1:15:05 PM EDTElectronically Signed GP/GP Professional Interpretation Provided By: [facility], , To consult with a radiologist regarding this report, please call our [id number] line @ [phone] Dictated on 01/09/12 1614 by Valery Saldaña MDscribed on 01/10/121940 by ITS IMPORTSign by Corey Saldaña MD on 01/10/121941 Sign by: Corey Saldaña MD 0-Dml-167084:36 METABOLIC PANEL, COMPREHENSIVE Comments: PATIENT WAS FASTINGPERFORMED BY: [facility] [id number] ([id number]) ALT (SGPT) 21 [iU]/L (Normal) Range: 0-40 AST (SGOT) 17 [iU]/L (Normal) Range: 0-40 Alkaline Phosphatase, S 60 [iU]/L (Normal) Range: 25-165 Bilirubin, Total 0.7 mg/dL (Normal) Range: 0.0-1.2 A/G Ratio 2.0 (Normal) Range: 1.1-2.5 Globulin, Total 2.3 g/dL (Normal) Range: 1.5-4.5 Albumin, Serum 4.5 g/dL (Normal) Range: 3.6-4.8 Protein, Total, Serum 6.8 g/dL (Normal) Range: 6.0-8.5 Calcium, Serum 10.0 mg/dL (Normal) Range: 8.6-10.2 Carbon Dioxide, Total 25 mmol/L (Normal) Range: 20-32 Chloride, Serum 108 mmol/L (Normal) Range: 97-108 Potassium, Serum 4.0 mmol/L (Normal) Range: 3.5-5.2 Sodium, Serum 142 mmol/L (Normal) Range: 134-144 BUN/Creatinine Ratio 34 (Abnormal) Range: 11-26 eGFR If Africn Am 111 mL/min/1.73 (Normal) eGFR If NonAfricn Am 96 mL/min/1.73 (Normal) Creatinine, Serum 0.59 mg/dL (Normal) Range: 0.57-1.00 BUN 20 mg/dL (Normal) Range: 8-27 Glucose, Serum 92 mg/dL (Normal) Range: 65-99 7-Roi-992174:36 LIPID PANEL (75080) Comments: PATIENT WAS FASTINGPERFORMED BY: [facility] [id number] LDL/HDL Ratio 2.5 {ratio_units} (Normal) Range: 0.0-3.2 LDL Cholesterol Calc 118 mg/dL (Abnormal) Range: 0-99 VLDL Cholesterol Nahid 15 mg/dL (Normal) Range: 5-40 HDL Cholesterol 48 mg/dL (Normal) Comments: According to ATP-III Guidelines, HDL-C >59 mg/dL is considered anegative risk factor for CHD. Triglycerides 76 mg/dL (Normal) Range: 0-149 Cholesterol, Total 181 mg/dL (Normal) Range: 100-199 0-Aug-857661:36 Vitamin D Hydroxy (67296) Comments: PATIENT WAS FASTINGPERFORMED BY: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 10-20 CA 11.7 mg/dL (Abnormal) Range: 8.5-10.1 CL 107 mmol/L (Normal) Range: 98-107 CO2 30.6 mmol/L (Abnormal) Range: 22.0-29.0 CREAT,SERUM 0.7 mg/dL (Normal) Range: 0.6-1.0 GAP 5 (Normal) Range: 5-15 GLOB 3.4 g/dL (Normal) Range: 2.3-3.5 GLU 92 mg/dL (Normal) Range: 70-110 K 4.0 mmol/L (Normal) Range: 3.5-5.1 NA 143 mmol/L (Normal) Range: 136-145 T BILI 0.61 mg/dL (Normal) Range: 0.00-1.00 T PROT 7.8 g/dL (Normal) Range: 6.4-8.2 :15 ESR SED RATE 8 mm/h (Normal) Range: 0-30 :15 MG 2.2 mg/dL (Normal) Range: 1.5-2.2 :15 RA LATEX 6502 7.3 {IU/mL} (Normal) Range: 0.0-13.9 :15 TSH 0.25 {uIU/mL} (Abnormal) Range: 0.34-4.82 Plan of Care Name Dates Details Instructions Asthma with acute exacerbation : Eprescribed prescriptions (G8553) Indication: Asthma with acute exacerbation 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 : Eprescribed prescriptions (G8553) 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 Cough : Solu Medrol Injection/ Education Indication: Cough Current nonsmoker (Renamed from Current non-smoker) : Eprescribed prescriptions (G8553) Indication: Current nonsmoker (Renamed from Current non-smoker) Other hyperlipidemia : Eprescribed prescriptions (G8553) Indication: Other hyperlipidemia [facility] EXAM : Eprescribed prescriptions (G8553) Indication: [facility] EX[facility] Abnormal glucose tolerance test : Diet, Exercise, and Wt loss Indication: Abnormal glucose tolerance test Current nonsmoker (Renamed from Current non-smoker) : Eprescribed prescriptions (G8553) Indication: Current nonsmoker (Renamed from Current non-smoker) Poison akshat : Eprescribed prescriptions (G8553) Indication: Poison akshat BMI 26.0-26.9,adult : Eprescribed prescriptions (G8553) Indication: BMI 26.0-26.9,adult Cough : Eprescribed prescriptions (G8553) Indication: Cough Cough : Eprescribed prescriptions (G8553) Indication: Cough Influenza A : Eprescribed prescriptions (G8553) Indication: Influenza A Abnormal glucose tolerance test : Diet, Exercise, and Wt loss Indication: Abnormal glucose tolerance test [facility] EX[facility] : Flu (Influenza) *: flu Indication: [facility] EXAM [facility] EX[facility] : Eprescribed prescriptions (G8553) Indication: [facility] EXAM Abnormal glucose tolerance test : Eprescribed prescriptions (G8553) Indication: Abnormal glucose tolerance test Cough, persistent : Eprescribed prescriptions (G8553) Indication: Cough, persistent Gastroesophageal reflux disease without esophagitis : Heartburn *: gerd Indication: Gastroesophageal reflux disease without esophagitis Gastroesophageal reflux disease without esophagitis : Eprescribed prescriptions (G8553) Indication: Gastroesophageal reflux disease without esophagitis Sinus drainage : Follow up if no improvement or if symptoms worsen Indication: Sinus drainage Other hyperlipidemia : Eprescribed prescriptions (G8553) Indication: Other hyperlipidemia UTI symptoms : Follow up if no improvement or if symptoms worsen Indication: UTI symptoms Abnormal glucose tolerance test : Eprescribed prescriptions (G8553) Indication: Abnormal glucose tolerance test Positional vertigo : Dizziness *: dizziness Indication: Positional vertigo Positional vertigo : Eprescribed prescriptions (G8553) Indication: Positional vertigo Urinary frequency : Eprescribed prescriptions (G8553) Indication: Urinary frequency BRONCHITIS, NOT SPECIFIED ACUTE OR CHRONIC (490.) : Eprescribed prescriptions (G8553) Indication: BRONCHITIS, NOT SPECIFIED ACUTE OR CHRONIC (490.) Dysuria (Renamed from Difficult or painful urination) : Follow up if no improvement or if symptoms worsen Indication: Dysuria (Renamed from Difficult or painful urination) Dysuria (Renamed from Difficult or painful urination) : follow up for recheck urine 1 week after complete antibiotic Indication: Dysuria (Renamed from Difficult or painful urination) Dysuria (Renamed from Difficult or painful urination) : *UTI treatment Indication: Dysuria (Renamed from Difficult or painful urination) Dysuria (Renamed from Difficult or painful urination) : Water in diet, brief version Indication: Dysuria (Renamed from Difficult or painful urination) Pain, eye, left : Follow up if no improvement or if symptoms worsen Indication: Pain, eye, left Serous conjunctivitis, unspecified laterality : *Conjunctivitis Education Indication: Serous conjunctivitis, unspecified laterality Other hyperlipidemia : Eprescribed prescriptions (G8553) Indication: Other hyperlipidemia Abnormal glucose tolerance test : Eprescribed prescriptions (G8553) Indication: Abnormal glucose tolerance test Need for prophylactic vaccination and inoculation against influenza : Flu (Influenza) *: flu Indication: Need for prophylactic vaccination and inoculation against influenza Need for prophylactic vaccination and inoculation against influenza : Flu (Influenza) *: flu shot Indication: Need for prophylactic vaccination and inoculation against influenza Dizziness : Dizziness *: dizziness Indication: Dizziness Abnormal glucose tolerance test : Diet, Exercise, and Wt loss Indication: Abnormal glucose tolerance test Encounter for immunization : Shingles Vaccine Education 2005 Indication: Encounter for immunization Annual physical exam : fall reduction handout Indication: Annual physical exam Encounter for screening for malignant neoplasm of cervix : Pap Test (Cervical Smear) *: cervical cancer Indication: Encounter for screening for malignant neoplasm of cervix Encounter for screening for malignant neoplasm of cervix : Self breast exam Indication: Encounter for screening for malignant neoplasm of cervix Need for prophylactic vaccination and inoculation against influenza : Flu (Influenza) *: flu shot Indication: Need for prophylactic vaccination and inoculation against influenza Acute sinusitis, unspecified : *URI Symptoms Indication: Acute sinusitis, unspecified Acute sinusitis, unspecified : *Antibiotic Usage Education - Female Indication: Acute sinusitis, unspecified Abnormal glucose tolerance test : Diet, Exercise, and Wt loss Indication: Abnormal glucose tolerance test Hematuria : follow up for recheck urine 1 week after complete antibiotic Indication: Hematuria Cystitis, acute : *UTI treatment Indication: Cystitis, acute Cystitis, acute : Water in diet, brief version Indication: Cystitis, acute Acute sinusitis, unspecified : *URI Treatment Indication: Acute sinusitis, unspecified Acute sinusitis, unspecified : *URI Symptoms Indication: Acute sinusitis, unspecified Acute sinusitis, unspecified : *Antibiotic Usage Education - Female Indication: Acute sinusitis, unspecified Family hx-breast malignancy : Follow up in 11 days Indication: Family hx-breast malignancy Mastitis : Reviewed Lab Indication: Mastitis Other and unspecified hyperlipidemia : Diet, Exercise, and Wt loss Indication: Other and unspecified hyperlipidemia Other and unspecified hyperlipidemia : High Cholesterol (Hypercholesterolemia) *: blood Indication: Other and unspecified hyperlipidemia Osteopenia : Osteoporosis in Women *: bone density Indication: Osteopenia Low back pain : Follow up in 2 weeks Indication: Low back pain Other hyperlipidemia : Diet, Exercise, and Wt loss Indication: Other hyperlipidemia Dysuria : follow up for recheck urine 1 week after complete antibiotic Indication: Dysuria methylmalonic acid elevatin : FOLLOW UP IN 2 WEEKS Indication: methylmalonic acid elevatin Well woman exam with routine gynecological exam : Pap/Pelvic/Bimanual/Rectal/Breast Exam was done. Indication: Well woman exam with routine gynecological exam Well woman exam with routine gynecological exam : Self Breast Exam Education Indication: Well woman exam with routine gynecological exam Well woman exam with routine gynecological exam : Well Female Maintenance (KF) Indication: Well woman exam with routine gynecological exam BRONCHITIS, NOT SPECIFIED ACUTE OR CHRONIC (490.) : *URI Treatment Indication: BRONCHITIS, NOT SPECIFIED ACUTE OR CHRONIC (490.) BRONCHITIS, NOT SPECIFIED ACUTE OR CHRONIC (490.) : Antibiotic Usage Education - Female Indication: BRONCHITIS, NOT SPECIFIED ACUTE OR CHRONIC (490.) BRONCHITIS, NOT SPECIFIED ACUTE OR CHRONIC (490.) : URI Symptoms Indication: BRONCHITIS, NOT SPECIFIED ACUTE OR CHRONIC (490.) infected sebacous cyst : Antibiotic Usage Education - Female Indication: infected sebacous cyst Dysuria : Antibiotic Usage Education - Female Indication: Dysuria Fatigue : *fatigue education Indication: Fatigue Planned Observations CBC W/AUTO DIFF WBC (68622)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 On: 6-Efl-395108:36 Request MICROALBUMIN: CREATININE RATIO (48893) AND (77882)Indication: Abnormal glucose tolerance test On: 4-Myh-467330:22 Request METABOLIC PANEL, COMPREHENSIVE (28461)Indication: Abnormal glucose tolerance test On: :22 Request CALCIUM SERUM (18942)Indication: Hypercalcemia On: :13 Request PARATHORMONE (25055)Indication: Hypercalcemia On: :13 Request Calcium Serum (88060)Indication: Hypercalcemia On: 21-Xyw-275561:07 Request METABOLIC PANEL, COMPREHENSIVE (93460)Indication: Abnormal glucose tolerance test On: : Request VITAMIN B-12 (CYANOCOBALAMIN) (05225)Indication: Vitamin B12 deficiency (dietary) anemia On: : Request MICROALBUMIN: CREATININE RATIO (68314) AND (31767)Indication: Abnormal glucose tolerance test On: : Request LIPID PANEL (42923)Indication: Other hyperlipidemia On: : Request Vitamin D Hydroxy (42392)Indication: Vitamin D deficiency, unspecified On: : Request CBC W/AUTO DIFF WBC (67554)Indication: Vitamin B12 deficiency (dietary) anemia On: :25 Request VITAMIN B-12 (CYANOCOBALAMIN) (27817)Indication: Vitamin B12 deficiency (dietary) anemia On: :14 Request MICROALBUMIN: CREATININE RATIO (29892) AND (31828)Indication: Abnormal glucose tolerance test On: :14 Request HGB A1C (17881)Indication: Abnormal glucose tolerance test On: :14 Request CBC (AUTO) (80133)Indication: Calcium nephrolithiasis On: :13 Request Vitamin D Hydroxy (14430)Indication: Vitamin D deficiency, unspecified On: :13 Request LIPID PANEL (24467)Indication: Other hyperlipidemia On: :13 Request METABOLIC PANEL, COMPREHENSIVE (80360)Indication: Other hyperlipidemia On: :13 Request MICROALBUMIN: CREATININE RATIO (16564) AND (54365)Indication: Abnormal glucose tolerance test On: :32 Request Hemoglobin Glyclated (HGB A1C) (72374)Indication: Abnormal glucose tolerance test On: :32 Request METABOLIC PANEL, COMPREHENSIVE (55688)Indication: Other hyperlipidemia On: 82-Rcj-58413:32 Request LIPID PANEL (19161)Indication: Other hyperlipidemia On: :31 Request VITAMIN B-12 (CYANOCOBALAMIN) (79766)Indication: Vitamin B12 deficiency (dietary) anemia On: :31 Request CBC W/AUTO DIFF WBC (62237)Indication: Vitamin B12 deficiency (dietary) anemia On: :31 Request VITAMIN B-12 (CYANOCOBALAMIN) (47710)Indication: Vitamin B12 deficiency (dietary) anemia On: :22 Request LIPID PANEL (89866)Indication: Other hyperlipidemia On: :22 Request METABOLIC PANEL, COMPREHENSIVE (50107)Indication: Abnormal glucose tolerance test On: 42-Rpe-721872:21 Request URINE LOW CULTURE-RUDDY COL COUNT (17335)Indication: Dysuria (Renamed from Difficult or painful urination) On: 35-Zmd-643104:54 Request CBC, PLATELETS & AUT DIFF (65097)Indication: Vitamin B12 deficiency (dietary) anemia On: 9-Ovj-875498:42 Request VITAMIN B-12 (CYANOCOBALAMIN) (34896)Indication: Vitamin B12 deficiency (dietary) anemia On: 0-Blw-690493:42 Request Vitamin D Hydroxy (22555)Indication: Vitamin D deficiency, unspecified On: 8-Qds-939709:41 Request LIPID PANEL (50103)Indication: Other hyperlipidemia On: 5-Hcz-720993:41 Request METABOLIC PANEL, COMPREHENSIVE (11437)Indication: Other hyperlipidemia On: 0-Wrn-331297:41 Request METABOLIC PANEL, COMPREHENSIVE (24344)Indication: Osteoporosis (Renamed from OP (osteoporosis)) On: 73-Xqy-039454:41 Request UPEP (47758)Indication: Osteoporosis (Renamed from OP (osteoporosis)) On: 12-Uem-719116:28 Request SPEP (79685)Indication: Osteoporosis (Renamed from OP (osteoporosis)) On: 24-Tax-757227:28 Request TSH (99652)Indication: Fluid retention On: 74-Bfk-609971:43 Request Vitamin D Hydroxy (84968)Indication: Vitamin D deficiency, unspecified On: :29 Request VITAMIN B-12 (CYANOCOBALAMIN) (10455)Indication: Vitamin B12 deficiency (dietary) anemia On: : Request CBC W/AUTO DIFF WBC (37869)Indication: Vitamin B12 deficiency (dietary) anemia On: :29 Request METABOLIC PANEL, COMPREHENSIVE (52535)Indication: Fluid retention On: :29 Request URINE LWO CULTURE (RUDDY COL COUNT) (23661)Indication: Hematuria On: :11 Request URINE LOW CULTURE-RUDDY COL COUNT (19994)Indication: Hematuria On: :56 Request URINALYSIS, W/ MICRO (12571)Indication: Hematuria On: :54 Request Parathyroid Hormone-related Peptide (PTH-rP) (21280)Indication: Fatigue On: 45-Oih-914411:17 Request VITAMIN B-12 (CYANOCOBALAMIN) (35389)Indication: Vitamin B12 deficiency (dietary) anemia On: 2-Uyf-456320:03 Request METABOLIC PANEL, COMPREHENSIVE (67316)Indication: Abnormal glucose tolerance test On: 5-Rmb-165610:03 Request CBC WITH MANUAL DIFF (32069)Indication: Vitamin B12 deficiency (dietary) anemia On: 6-Fps-667174:02 Request Vitamin D Hydroxy (57547)Indication: Vitamin D deficiency, unspecified On: 1-Shi-024494:02 Request LIPID PANEL (04364)Indication: Other hyperlipidemia On: :02 Request CREATININE BLOOD (29069)Indication: Other hyperlipidemia On: 5-Hnp-696391:47 Request Vitamin D Hydroxy (13723)Indication: Vitamin D deficiency, unspecified On: :37 Request VITAMIN B-12 (CYANOCOBALAMIN) (75599)Indication: Vitamin B12 deficiency (dietary) anemia On: :37 Request METABOLIC PANEL, COMPREHENSIVE (80667)Indication: Osteopenia On: :28 Request TSH (72520)Indication: Osteopenia On: :28 Request CBC WITH MANUAL DIFF (95711)Indication: Vitamin B12 deficiency (dietary) anemia On: :27 Request VITAMIN B-12 (CYANOCOBALAMIN) (03451)Indication: Vitamin B12 deficiency (dietary) anemia On: : Request LIPID PANEL (26561)Indication: Other and unspecified hyperlipidemia On: : Request Vitamin D Hydroxy (59689)Indication: Vitamin D deficiency, unspecified On: : Request METABOLIC PANEL, COMPREHENSIVE (47014)Indication: Palpitations On: :32 Request CBC WITH MANUAL DIFF (14085)Indication: Vitamin B12 deficiency (dietary) anemia On: :31 Request Vitamin D Hydroxy (51185)Indication: Vitamin D deficiency, unspecified On: : Request LIPID PANEL (35878)Indication: Other hyperlipidemia On: : Request VITAMIN B-12 (CYANOCOBALAMIN) (85176)Indication: Vitamin B12 deficiency (dietary) anemia On: : Request URINE LOW CULTURE-IDENTIFICATN (32424)Indication: recurrent uti On: : Request Urinalysis, Office (47278)Indication: Cystitis, acute On: :57 Request VITAMIN B-12 (CYANOCOBALAMIN) (44114)Indication: Vitamin D deficiency, unspecified On: :30 Request CALCIFEDIOL (80645)Indication: Vitamin D deficiency, unspecified On: :30 Request URINALYSIS (32666)Indication: Vitamin D deficiency, unspecified On: :30 Request TSH (THYROID STIMULATING HORMONE) (85298)Indication: Vitamin D deficiency, unspecified On: :30 Request CBC, PLATELETS & AUT DIFF (75384)Indication: Vitamin D deficiency, unspecified On: :30 Request METABOLIC PANEL, COMPREHENSIVE (32473)Indication: Vitamin D deficiency, unspecified On: :30 Request LIPID PANEL (86256)Indication: Other hyperlipidemia On: :30 Request URINALYSIS W/O MICRO (42837)Indication: Low back pain On: :31 Request Creatine (77185)Indication: Low back pain On: 02-Hvz-059154:13 Request BUN (Blood Urea Nitrogen) (42240)Indication: Low back pain On: 77-Ank-192286:13 Request Creatine (36057)Indication: Low back pain On: 73-Nah-940028:42 Request Creatine (47150)Indication: Unspecified Diagnosis On: 72-Atq-832385:34 Request LIPID PANEL (38971)Indication: Other and unspecified hyperlipidemia On: :22 Request HEPATIC FUNCTION PANEL (66188)Indication: Other and unspecified hyperlipidemia On: 73-Xmn-697611:22 Request Vitamin D Hydroxy (56412)Indication: Vitamin D deficiency, unspecified On: 05-Zmv-958121:11 Request VITAMIN B-12 (CYANOCOBALAMIN) (70648)Indication: methylmalonic acid elevatin On: 02-Jtg-017520:11 Request Methylmalonic acid, serum 61700Bbszzvrjto: Fatigue On: 82-Rnq-695493:08 Request VITAMIN B-12 (CYANOCOBALAMIN) (24275)Indication: Fatigue On: 91-Jsn-876554:08 Request TSH (68533)Indication: Palpitations On: 55-Dnr-836689:06 Request METABOLIC PANEL, COMPREHENSIVE (20861)Indication: Palpitations On: 53-Ksl-069746:06 Request CBC WITH MANUAL DIFF (15995)Indication: Palpitations On: 52-Iea-585380:06 Request LIPID PANEL (66949)Indication: Other and unspecified hyperlipidemia On: 42-Fho-701856:05 Request Vitamin D Hydroxy (18718)Indication: Osteopenia On: 41-Plz-070146:05 Request Vitamin D Hydroxy (77400)Indication: Vitamin D deficiency, unspecified On: 9-Yxo-009076:10 Request METABOLIC PANEL, COMPREHENSIVE (28929)Indication: Other and unspecified hyperlipidemia On: :26 Request LIPID PANEL (49176)Indication: Other and unspecified hyperlipidemia On: :26 Request PARATHORMONE (95283)Indication: Osteopenia On: 17-Cmy-744535:15 Request Vitamin D Hydroxy (81763)Indication: Vitamin D deficiency, unspecified On: 13-Yhz-836025:15 Request LIPID PANEL (97896)Indication: Other and unspecified hyperlipidemia On: 41-Usg-623051:01 Request CALCIUM SERUM ([id number])Indication: Osteopenia On: 58-Ykd-277539:00 Request TSH ([id number])Indication: Osteopenia On: 65-Szc-088390:00 Request PARATHORMONE ([id number])Indication: Osteopenia On: 21-Wcq-872265:00 Request Vitamin D Hydroxy ([id number])Indication: Osteopenia On: 25-Ire-565215:58 Request FECAL OCCULT HGB ASSAY- tubes sent home ([id number])Indication: Well woman exam with routine gynecological exam On: 50-Zlf-365310:39 Request OCCULT BLOOD FECES SCREEN- card done in office ([id number])Indication: Well woman exam with routine gynecological exam On: :39 Request Thin prep Pap ([id number])Indication: Well woman exam with routine gynecological exam On: 28-Gbc-519629:39 Request Comments: vaginal cuff LIPID PANEL ([id number])Indication: Other and unspecified hyperlipidemia On: :58 Request HEPATIC FUNCTION PANEL ([id number])Indication: Other and unspecified hyperlipidemia On: 7-Mgt-310969:58 Request CALCIUM SERUM ([id number])Indication: Osteopenia On: 7-Zab-483285:58 Request PHOSPHORUS ([id number])Indication: Osteopenia On: 1-Dok-717867:58 Request PARATHORMONE ([id number])Indication: Osteopenia On: 9-Zyz-236239:58 Request VITAMIN D, 1, 25-DIHYDROXY ([id number])Indication: Osteopenia On: 9-Ipc-917144:58 Request URINE LOW CULTURE-RUDDY COL COUNT ([id number])Indication: Dysuria On: 54-Ioh-179341:35 Request Urinalysis, Office ([id number])Indication: Dysuria On: 33-Fws-231563:35 Request VITAMIN D, 1, 25-DIHYDROXY ([id number])Indication: Vitamin D deficiency, unspecified On: 3-Oev-323600:01 Request URINE LOW CULTURE-IDENTIFICATN ([id number])Indication: Dysuria On: 10-Loc-793737:06 Request Celiac Disease Antibody Profile (25803) x3 & (30408) X2- gliadin IgA, IgG and reticulin IgA, IgG and tissue transglutaminase IgA.Indication: Abdominal pain, acute, generalized On: 79-Eoe-595504:38 Request MANDI (ANTINUCLEAR ANTIBODY) ([id number])Indication: Fatigue On: :37 Request C-REACTIVE PROTEIN ([id number])Indication: Fatigue On: :37 Request CBC (AUTO) ([id number])Indication: Fatigue On: :37 Request Folate ([id number])Indication: Fatigue On: :37 Request METABOLIC PANEL, COMPREHENSIVE ([id number])Indication: Fatigue On: :37 Request RHEUMATOID FACTOR-QUANT ([id number])Indication: Fatigue On: :37 Request SED RATE ERYTHROCYTE ([id number])Indication: Fatigue On: :37 Request TSH ([id number])Indication: Fatigue On: :37 Request VITAMIN B-12 (CYANOCOBALAMIN) ([id number])Indication: Fatigue On: :37 Request Planned Encounters Medical; [facility] Exam (DF Nurse) - On: 15-Aug-2018 8:00 [facility] NURSE, DF Medical; [facility] Exam (Doctor) - On: 29-Aug-2018 8:45 [facility] Fast DO, Audrey A Fast DO, Audrey A Planned Procedures XR HEEL LEFT ([id number])By: Thanh CASTRO, On: 29-Apr-2018 Intent Audrey A Fast DO, Audrey A Flu Vaccine (Quadrivalent) 94194Hh: On: 29-Apr-2018 Intent Fast DO, Audrey A Fast DO, Audrey A Comments: Lot: [id number]: 02/08/19Site: L dltd, IMDose prefilled syringegiven by: Jovon reviewed and ABN signed Spirometry ([id number])By: Geovanna CASTRO, On: 16-Jan-2018 Intent Minoo Comments: #2-mild obstruction Radiology - Chest- PA and LatBy: On: 16-Jan-2018 Intent Minoo Austin DO Aerosol Treatment ([id number])By: Geovanna On: 16-Jan-2018 Intent Minoo CASTRO Comments: much more a/e no wheeze jose uch better Solu- Medrol Injection, 125mg On: 16-Jan-2018 Intent ([id number])By: Minoo Austin DO Comments: solumedrol 125mg injectionlot: [id number]: 04/2020L 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 Spirometry ([id number])By: Geovanna CASTRO, On: 16-Jan-2018 Intent Minoo Comments: mod severe obstruction #1 Breast Ultrasound - LeftBy: Thanh CASTRO, On: 09-Oct-2017 Intent Audrey Law DO Audrey A MRI OF BRAIN WITH AND WITHOUT On: 10-Sep-2017 Intent CONTRAST ([id number])By: Audrey Law DO, DO Audrey A SCREENING DIGITAL TOMOSYNTHESIS OF On: 10-Sep-2017 Intent BREAST ([id number])By: Audrey Law DO, DO Audrey A ELECTROCARDIOGRAM, COMPLETE (ECG) On: 10-Sep-2017 Intent ([id number])By: Audrey Law DO, DO, Comments: ekg showed normal sinus rhythym, normal axis, no acute st/t wave changes sinus hyun Audrey A Solu -Medrol Injection, 125 mg On: 08-Apr-2017 Intent ([id number])By: Audrey Law DO, DO Audrey A Spirometry ([id number])By: Thanh CASTRO, On: 21-Sep-2016 Intent Audrey Law DO Audrey A Comments: good effort and curve mod obstruction Aerosol Treatment ([id number])By: Thanh On: 20-Aug-2016 Audrey Jackson DO, DO Audrey A Comments: with albuterol Phenergan Injection, up to 50 mg On: 20-Aug-2016 Intent ([id number])By: Audrey Law DO, DO, Comments: lot:[id number]: 03/28site/route: LGM/IMamt: 25mgVIS signed when applicableBITA Akbar Radiology - Chest- PA and LatBy: On: 24-Jul-2016 Intent Audrey Law DO, DO, Audrey A DEXA SCAN AXIAL SKELETON ([id number])By: On: 08-May-2016 Intent Audrey Law DO, DO, Audrey A Comments: end jul MAMMOGRAM, SCREENING, BOTH BREAST On: 08-May-2016 Intent ([id number])By: Audrey Law DO, DO Audrey A Flu Vaccine (Quadrivalent) 43881Ol: On: 08-May-2016 Intent Fast DO, Audrey A Fast DO, Audrey A Comments: Lot #:[id number] date:02/08/17mount given:0.5mlRoute: IMSite given: left deltoidGiven by: NEGRITA Gavin ADMINISTRATION OF INFLUENZA VIRUS On: 08-May-2016 Intent VACCINE (G0008)By: Fast DO, Audrey A Fast DO, Audrey A PFT - CompleteBy: Fast DO, Audrey A On: 17-Apr-2016 Intent Fast DO, Audrey A MRI - Brain (IV Contrast Needed)By: On: 31-Oct-2015 Intent Fast DO, Audrey A Fast DO, Audrey A MRI - BrainBy: Thanh DO, Audrey A Fast On: 05-Oct-2015 Intent DO, Audrey A Solu -Medrol Injection, 125 mg On: 18-Aug-2015 Intent ([id number])By: Michelle Tyson MD Radiology - ChestBy: Marbella METZ, On: 18-Aug-2015 Intent Michelle Gerber Flu Vaccine (Quadrivalent) 24118Aa: On: 27-May-2015 Intent Fast DO, Audrey A Fast DO, Audrey A Comments: lot [id number]: 02/09/2016site/route L agnieszka, IMamt 0.5mlVIS and ABN signed when applicableChelsea, CMAFM4 ADMINISTRATION OF INFLUENZA VIRUS On: 27-May-2015 Intent VACCINE (G0008)By: Gurdeep Law DOa A Fast DO, Audrey A 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 On: 23-Nov-2014 Intent ([id number])By: Ashley Gan CNP COMP EYE EXAMINATION, ESTAB PATIENT On: 18-Oct-2014 Intent ([id number])By: Ashley Gan CNP MAMMOGRAM, SCREENING, BOTH BREAST On: 10-Sep-2014 Intent ([id number])By: Audrey Law DO Fast DO, Audrey A Radiology - ChestBy: Marbella METZ, On: 29-Jul-2014 Intent Michelle Gerber ELECTROCARDIOGRAM, COMPLETE (ECG) On: 29-Jul-2014 Intent ([id number])By: Mcihelle Tyson MD Comments: see scanned document of test done to see results reviewed today with patient Prevnar 13 ([id number])By: Thanh CASTRO, On: 21-Jun-2014 Intent Audrey A Fast DO, Audrey A Comments: Lot #:[id number] date:10/2015Amount given:0.5mlRoute: IMSite given: left deltoidGiven by: NEGRITA Gavin DEXA SCAN AXIAL SKELETON ([id number])By: On: 21-Jun-2014 Intent Fast DO, Audrey A Fast DO, Audrey A IMMUNIZ ADMNIN, 1 VAC, SNGL/COMBO On: 09-Jun-2014 Intent ([id number])By: Fast DO, Audrey A Fast DO, Comments: lot:[id number]:02/08/2015dose:0.5mLRoute: IMlocation: L armgiven by: josselyn velázquez Audrey A FLU VAC, SPLIT, >3 YEARS, INTRAMUSC On: 09-Jun-2014 Intent ([id number])By: Christine Palma MRI - BrainBy: Fast DO, Audrey A Fast On: 23-Mar-2014 Intent DO, Audrey A Radiology - Cervical SpineBy: Fast On: 29-Dec-2013 Intent DO, Audrey A Fast DO, Audrey A CT - ChestBy: Fast DO, Audrey A Fast On: 29-Dec-2013 Intent DO, Audrey A Eprescribed prescriptions ([id number])By: On: 07-Sep-2013 Intent Juliana Shook MAMMOGRAM, SCREENING, BOTH BREASTS On: 20-Aug-2013 Intent ([id number])By: Fast DO, Audrey A Fast DO, Audrey A Eprescribed prescriptions ([id number])By: On: 20-Aug-2013 Intent Juliana Shook PNEUM VAC ADLT/IMUMNOSPR, SBC/INTRM On: 25-May-2013 Intent ([id number])By: Fast DO, Audrey A Fast DO, Comments: Lot #[id number]-L arm, dltd, IMDose-prefilled syringegiven by:STARR Renteria signed Audrey A Pap Smear, Medicare ([id number])By: On: 25-May-2013 Intent Juliana Shook Pelvic and Breast, Medicare On: 25-May-2013 Intent (G0101)By: Juliana Shook ADMINISTRATION OF INFLUENZA VIRUS On: 14-May-2013 Intent VACCINE (G0008)By: Geovanna CASTRO, Comments: Lot #[id number]-L dltd, IMDose prefilled syringegiven by:STARR Renteria and ABN signed Minoo FLU VAC, SPLIT, >3 YEARS, INTRAMUSC On: 14-May-2013 Intent ([id number])By: Minoo Austin DO Eprescribed prescriptions (G8553)By: On: 06-Mar-2013 Intent Juliana Shook B 12 Injection, 1000 mcg (J3420)By: On: 06-Mar-2013 Intent Juliana Shook 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 On: 20-Feb-2013 Intent ([id number])By: Virginie Ambriz LPN MRI - BrainBy: Fast DO, Audrey A Fast On: 30-Jan-2013 Intent DO, Audrey A CT - Thoracic SpineBy: Fast DO, On: 30-Jan-2013 Intent Audrey A Fast DO, Audrey A Eprescribed prescriptions ([id number])By: On: 30-Jan-[address] - Brain/HeadBy: Michelle Tyson MD On: 23-Jan-2013 Intent M Comments: s/p head trauma callwet read Radiology - Thoracic SpineBy: On: 23-Jan-2013 Intent Michelle Tyson MD Comments: call wet read to me THER/PROPH/DIAG IV INF, INIT On: 22-Aug-2012 Intent ([id number])By: Ashley Gan CNP INFUSION, NORMAL SALINE SOLUTION , On: 22-Aug-2012 Intent 250 CC (J7050)By: Ashley Gan CNP Rocephon Injection, 1 Gm (J0696)By: On: 22-Aug-2012 Intent Ashley Gan CNP 12 Injection, 1000 mcg (J3420)By: On: 01-Jul-2012 Intent Fast DO, Audrey A Fast DO, Audrey A Comments: Lot:[id number]:Dose:1MLRoute:IMSite:L armGiven By:DEBRA Eprescribed prescriptions (G8553)By: On: 01-Jul-2012 Intent Juliana Shook FLU VAC, SPLIT, >3 YEARS, INTRAMUSC On: 27-May-2012 Intent (31282)By: Juliana Shook Comments: Lot:[id number]:6.30.13Dose:prefilledRoute:IMSite:L DltdGiven By:AUDREY signed MAMMOGRAM, SCREENING, BOTH BREASTS On: 27-May-2012 Intent (47821)By: Audrey Law DO, DO, Comments: mid jul Audrey A ADMINISTRATION OF INFLUENZA VIRUS On: 27-May-2012 Intent VACCINE (G0008)By: Juliana Shook Toradol Injection, 30 mg (J1885)By: On: 09-Jan-2012 Intent Ciesa Ashley RAMIREZ Comments: 1 ml given im lt hip lot [id number] 08/25 Radiology - Lumbar SpineBy: Ciesa On: 09-Jan-2012 Intent Ashley RAMIREZ DXA, BONE DENSITY, AXIAL SKELETON On: 18-Dec-2011 Intent (77364)By: Audrey Law DO, DO, Comments: due in january Audrey A TDAP VACCINE >7 IM (25766)By: On: 18-Dec-2011 Intent Juliana Shook Comments: received at work 11/2011 MAMMOGRAM, SCREENING, BOTH BREASTS On: 03-Jul-2011 Intent ([id number])By: Audrey Law DO, DO, Audrey A CT - Abdomen & Pelvis Stone On: 03-Jul-2011 Intent ProtocolBy: Thanh CASTRO, Audrey A Fast DO, Audrey A FLU VAC, SPLIT, >3 YEARS, INTRAMUSC On: 03-Jul-2011 Intent (14195)By: Juliana Shook Comments: 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 See CIM: 45-4 and MCM: 2049) (J3420)By: Ashley Gan CNP B 12 Injection, 1000 mcg (J3420)By: On: 22-Mar-2010 Intent Geovanna Call B 12 Injection, 1000 mcg (J3420)By: On: 07-Feb-2010 Intent Fast DO, Audrey A Fast DO, Audrey A Comments: Lot #[id number]-Right deltoidDose- 1 mlgiven by:ALMA ROSA DXA, BONE DENSITY, AXIAL SKELETON On: 09-Nov-2009 Intent (88570)By: Fast DO, Audrey A Fast DO, Audrey A MAMMOGRAM, SCREENING, BOTH BREASTS On: 19-May-2009 Intent ([id number])By: Fast DO, Audrey A Fast DO, Audrey A Yapqgdpfz-Gte-Jwrro (72878)By: Thanh On: 07-Sep-2008 Intent DO, Audrey A Fast DO, Audrey A Radiology - ChestBy: Fast DO, Audrey On: 07-Sep-2008 Intent A Fast DO, Audrey A Comments: pa and lat Pulse Oximetry (24866)By: Malik RAMIREZ, On: 27-Jul-2008 Intent Adelaida Aerosol Treatment (92562)By: Malik On: 27-Jul-2008 Intent Ashley RAMIREZ PHYSICAL THERAPY EVALUATION On: 29-Jun-2008 Intent (59918)By: Ashley Gan CNP Pulse Oximetry (31350)By: Malik RAMIREZ, On: 14-Jan-2008 Intent Adelaida Aerosol Treatment (64783)By: Malik On: 14-Jan-2008 Intent Ashley RAMIREZ MAMMOGRAM, SCREENING, BOTH BREASTS On: 17-Dec-2007 Intent (61070)By: Thanh DO Audrey A Fast DO, Audrey A MRI - Lumbar SpineBy: Fast DO, Audrey On: 17-Dec-2007 Intent A Fast DO, Audrey A Comments: hx of recent multiple trauma-osteoporosis-- ddd and significant pain DXA, BONE DENSITY, AXIAL SKELETON On: 17-Dec-2007 Intent ([id number])By: Fast DO, Audrey A Fast DO, Audrey A EKG (64894)By: Juliana Shook On: 17-Dec-2007 Intent Comments: ekg showed normal sinus rhythym, normal axis, no acute st/t wave changes with pacs Spirometry (70390)By: Thanh CASTRO, On: 04-Sep-2007 Intent Audrey A Fast DO, Audrey A Comments: good effort and curve - mild obstruction Radiology - ChestBy: IRA RAMIREZ, On: 22-Jul-2006 Intent KRISHAN Ear Irrigation (98109)By: IRA On: 22-Jul-2006 Intent KRISHAN RAMIREZ Planned Medications INFUSION, NORMAL SALINE SOLUTION , 250 CC Ordered: 22-Aug-2012 Pending Ciesa ASHLEY, Adelaida INJECTION, CEFTRIAXONE SODIUM, PER 250 MG Ordered: 22-Aug-2012 Pending Ciesa RETOUCHING OPERATOR, Adelaida INJECTION, KETOROLAC TROMETHAMINE, PER 15 MG Ordered: 09-Jan-2012 Pending Ciesa RETOUCHING OPERATOR, Adelaida INJECTION, METHYLPREDNISOLONE SODIUM SUCCINATE, UP TO 125 MG Ordered: 18-Aug-2015 Pending Marbella METZ, Michelle Gerber INJECTION, METHYLPREDNISOLONE SODIUM SUCCINATE, UP TO 125 MG Ordered: 08-Apr-2017 Pending Fast DO, Audrey A Fast DO, Audrey A INJECTION, METHYLPREDNISOLONE SODIUM SUCCINATE, UP TO 125 MG Ordered: 16-Jan-2018 Pending Minoo Austin DO Phenergan 50 MG/ML Injection Solution Ordered: 20-Aug-2016 Pending Fast DO, Audrey A Fast DO, Audrey A Vitamin B-12 1000 MCG/ML Injection Solution Ordered: 01-Jul-2012 Pending Fast DO, Audrey A Fast DO, Audrey A Vitamin B-12 1000 MCG/ML Injection Solution Ordered: 06-Mar-2013 Pending Juliana Shook Instructions Name Dates Details Asthma with acute exacerbation : How to access health information online Indication: Asthma with acute exacerbation Asthma with acute exacerbation : How to access health information online - Detail Indication: Asthma with acute exacerbation Asthma with acute exacerbation : Patient Instructions Indication: Asthma with acute exacerbation Other and unspecified hyperlipidemia : DISCONTINUED - LIPID PANEL (72991) Indication: Other and unspecified hyperlipidemia 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 : How to access health information online 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 : How to access health information online - Detail 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 : Patient Instructions 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 Current nonsmoker (Renamed from Current non-smoker) : How to access health information online Indication: Current nonsmoker (Renamed from Current non-smoker) Current nonsmoker (Renamed from Current non-smoker) : How to access health information online - Detail Indication: Current nonsmoker (Renamed from Current non-smoker) Current nonsmoker (Renamed from Current non-smoker) : Patient Instructions Indication: Current nonsmoker (Renamed from Current non-smoker) Other hyperlipidemia : How to access health information online Indication: Other hyperlipidemia Other hyperlipidemia : How to access health information online - Detail Indication: Other hyperlipidemia Other hyperlipidemia : Patient Instructions Indication: Other hyperlipidemia [facility] EX[facility] : How to access health information online Indication: [facility] EX[facility] EX[facility] : How to access health information online - Detail Indication: [facility] EX[facility] EX[facility] : Patient Instructions Indication: [facility] EXAM Current nonsmoker (Renamed from Current non-smoker) : How to access health information online Indication: Current nonsmoker (Renamed from Current non-smoker) Current nonsmoker (Renamed from Current non-smoker) : How to access health information online - Detail Indication: Current nonsmoker (Renamed from Current non-smoker) Current nonsmoker (Renamed from Current non-smoker) : Patient Instructions Indication: Current nonsmoker (Renamed from Current non-smoker) Poison akshat : How to access health information online Indication: Poison akshat Poison akshat : How to access health information online - Detail Indication: Poison akshat Poison akshat : Patient Instructions Indication: Poison akshat BMI 26.0-26.9,adult : How to access health information online Indication: BMI 26.0-26.9,adult BMI 26.0-26.9,adult : How to access health information online - Detail Indication: BMI 26.0-26.9,adult BMI 26.0-26.9,adult : Patient Instructions Indication: BMI 26.0-26.9,adult Cough : How to access health information online Indication: Cough Cough : How to access health information online - Detail Indication: Cough Cough : Patient Instructions Indication: Cough Cough : How to access health information online Indication: Cough Cough : How to access health information online - Detail Indication: Cough Cough : Patient Instructions Indication: Cough Influenza A : How to access health information online Indication: Influenza A Influenza A : How to access health information online - Detail Indication: Influenza A Influenza A : Patient Instructions Indication: Influenza A [facility] EX[facility] : How to access health information online Indication: [facility] EX[facility] EX[facility] : How to access health information online - Detail Indication: [facility] EX[facility] EX[facility] : Patient Instructions Indication: [facility] EX[facility] Abnormal glucose tolerance test : How to access health information online Indication: Abnormal glucose tolerance test Abnormal glucose tolerance test : How to access health information online - Detail Indication: Abnormal glucose tolerance test Abnormal glucose tolerance test : Patient Instructions Indication: Abnormal glucose tolerance test Cough, persistent : How to access health information online Indication: Cough, persistent Cough, persistent : How to access health information online - Detail Indication: Cough, persistent Cough, persistent : Patient Instructions Indication: Cough, persistent Gastroesophageal reflux disease without esophagitis : How to access health information online Indication: Gastroesophageal reflux disease without esophagitis Gastroesophageal reflux disease without esophagitis : How to access health information online - Detail Indication: Gastroesophageal reflux disease without esophagitis Gastroesophageal reflux disease without esophagitis : Patient Instructions Indication: Gastroesophageal reflux disease without esophagitis Cough, persistent : How to access health information online Indication: Cough, persistent Cough, persistent : How to access health information online - Detail Indication: Cough, persistent Cough, persistent : Patient Instructions Indication: Cough, persistent Other hyperlipidemia : How to access health information online Indication: Other hyperlipidemia Other hyperlipidemia : How to access health information online - Detail Indication: Other hyperlipidemia Other hyperlipidemia : Patient Instructions Indication: Other hyperlipidemia Abnormal glucose tolerance test : Patient Instructions Indication: Abnormal glucose tolerance test Positional vertigo : Patient Instructions Indication: Positional vertigo Urinary frequency : Patient Instructions Indication: Urinary frequency BRONCHITIS, NOT SPECIFIED ACUTE OR CHRONIC (490.) : How to access health information online Indication: BRONCHITIS, NOT SPECIFIED ACUTE OR CHRONIC (490.) BRONCHITIS, NOT SPECIFIED ACUTE OR CHRONIC (490.) : How to access health information online - Detail Indication: BRONCHITIS, NOT SPECIFIED ACUTE OR CHRONIC (490.) BRONCHITIS, NOT SPECIFIED ACUTE OR CHRONIC (490.) : Patient Instructions Indication: BRONCHITIS, NOT SPECIFIED ACUTE OR CHRONIC (490.) Other hyperlipidemia : Patient Instructions Indication: Other hyperlipidemia Abnormal glucose tolerance test : Patient Instructions Indication: Abnormal glucose tolerance test Dizziness : Patient Instructions Indication: Dizziness Dysuria : Patient Instructions Indication: Dysuria Abnormal glucose tolerance test : Patient Instructions Indication: Abnormal glucose tolerance test Annual physical exam : Patient Instructions Indication: Annual physical exam Vitamin B12 deficiency (dietary) anemia : Patient Instructions Indication: Vitamin B12 deficiency (dietary) anemia Pain in thoracic spine : Patient Instructions Indication: Pain in thoracic spine Fatigue : Patient Instructions Indication: Fatigue Acute sinusitis, unspecified : Patient Instructions Indication: Acute sinusitis, unspecified Mastitis : Patient Instructions Indication: Mastitis Other and unspecified hyperlipidemia : Patient Instructions Indication: Other and unspecified hyperlipidemia Osteopenia : Patient Instructions Indication: Osteopenia Encounters Office Visit On: 06-Jun-2018 9:13 Encounter Reason: Cough - Note for Cough: lastweek had uri and was feeling better and now last few days- feeling worse again- was in [employer] 3 weeks ago maybe this caused- no fever but feels sweaty all over - whee End: 06-Jun-2018 9:50 zing and sob last week bad- lots of mucous-no chest pain- last week teeth hurt feels like coming from headEncounter Diagnosis: BMI 27.0-27.9,adult, Current nonsmoker (Renamed from Current non-smoker), Asthma with acute exacerbation, Acute sinusitis [facility] Office Visit On: 29-Apr-2018 11:19 Encounter Reason: Follow up tests - Date: (04/18 blood work)., [ADDITIONAL REASON] Follow up for chronic medical issues - The patient feels well with minor complai End: 29-Apr-2018 21:47 nts (thinks has plantar fascitis in L foot in heel...has been painful x 3 weeks. Tried new shoes, exercises and stretches and no improvement. Has a list of other things she would liek to go over), has g ood energy level and is sleeping well. Patient has been compliant with instructions. Current medication use: no side effects and compliant with dosing regimen. Patient sleeps 8 (8-9) hours per night. Nu trition: balanced diet, supplemental vitamins and low salt diet. The medical issues the patient is following up for include All identified problems below, cardiac issues, high cholesterol, osteoporosis/ osteopenia and other (vitamin d deficient, fatigue, spinal stenosis). , [ADDITIONAL REASON] Plantar Fasciitis, Adult - Note for Plantar fasciitis: left heel - pain with i nitial step down and walking - little better as keeps walking and not hurt to sit- had to quit walking - had walked that morning at the 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, Hypercalcemia, Abnormal glucose tolerance test, Other and unspecified hyperlipidemia (272.4), Recurrent UTI, Plantar fasciitis, left [facility] Office Visit On: 16-Jan-2018 12:37 Encounter Reason: Cold SymptomsEncounter Diagnosis: BMI 27.0-27.9,adult, Current nonsmoker (Renamed from Current non-smoker), Cough, Abnormal pulmonary function test End: 16-Jan-2018 13:56 [facility] Office Visit On: 20-Dec-2017 9:47 Encounter Reason: Follow up tests - Date: (12/04 blood work)., [ADDITIONAL REASON] Follow up for chronic medical issues - The patient feels well with minor complai End: 20-Dec-2017 13:06 nts (having issues with vertigo off and on for about 1 month. Has had in the past but bad now), has good energy level and is sleeping well. Patient has been compliant with instructions. Current medicati on use: no side effects and compliant with dosing regimen. Patient sleeps 8 hours per night. Nutrition: balanced diet, supplemental vitamins and low salt diet. The medical issues the patient is followin g up for include All identified problems below, cardiac issues, high cholesterol, osteoporosis/osteopenia and other (vitamin d deficient, fatigue, spinal stenosis). Note for Follow up for chronic medic al issues: she is down 3 pounds- and trying hard her bp is good- really watching the carbs- has been back off exercise so they are going to start back on saturday- vertigo happens when lies down- didnt t caroline the meclizine- because wipes her out- went away now back again- today a good day- -usually positional- she thinks triggered by fluid retention- certain foods and salt- took the lasix- no double visi on- feels drunk - now weakness or numbness arm or leg- no veer Encounter Diagnosis: Current nonsmoker (Renamed from Current non-smoker), BMI 27.0-27.9,adult, 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 General health: feels well with no complaints (would like to discuss some options to aid in weight loss. Looking to lose about 10lbs), has good e End: 29-Sep-2017 21:16 nergy level and is sleeping well. The patient's appetite is normal. Nutrition: normal/adequate. Exercises 5 (walks and strength training at the ) days per week. Sleeps on average 8 hours per night. Nor mal bowel and bladder habits. There are no current emotional problems. screening, colonoscopy ([facility] Dr. Galeana). 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 Patient has been compliant with instru ctions. Current medication use: no side effects and compliant with dosing regimen. Patient sleeps 9 hours per night. Nutrition: balanced diet, supplemental vitamins and low salt diet. The medical issues the patient is following up for include All identified problems below, cardiac issues, high cholesterol, osteoporosis/osteopenia and other (vitamin d deficient, fatigue, spinal stenosis). 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 Lesion(s) are located on the left side of the face, left side of the neck, left trunk area, left arm, left hand, right side of the face, right side End: 08-Apr-2017 13:04 of the neck, right trunk area and right arm. The patient describes the lesion(s) as itchy, painful and red. Onset was 2 day(s) ago. The symptoms occur constantly. The patient describes this as worsenin g. Current treatment includes antihistamines. Note for Skin lesions: [facility] Office Visit On: 28-Nov-2016 14:26 Encounter Reason: Follow up for chronic medical issues - The patient feels well with minor complaints (feels she is holding fluid), has good energy level and is sleeping well. Patient has been compliant with instructions End: 28-Nov-2016 15:13 . Current medication use: no side effects and compliant with dosing regimen. Patient sleeps 9 hours per night. Nutrition: balanced diet, supplemental vitamins and low salt diet. The medical issues the p atient is following up for include All identified problems below, cardiac issues, high cholesterol, osteoporosis/osteopenia and other (vitamin d deficient, fatigue, spinal stenosis). Note for Follow up for chronic medical issues: joined weight Survios 3 weeks again and going to start walking again- she does ok gerd molnia if taking med and does notice signfiicant difference in breathing with symbicor t- cholesterol med she tolerating well with way doing cant do more, [ADDITIONAL REASON] Follow up, Laboratory Test Results - Date: (11/21/16). 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 Onset was dorsey End: 21-Sep-2016 13:49 dden month(s) ago. There is no known event that preceded symptom onset. The symptoms occur constantly. The patient describes this as moderate in severity and worsening. Associated symptoms include wheez ing, fatigue and nausea, while associated symptoms do not include ear pain, swollen lymph nodes or shortness of breath. The patient is not currently being treated for this problem. 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 Onset was week(s) ago. Onset follow End: 29-Aug-2016 11:49 ed a respiratory infection (influenza). The symptoms occur frequently. The patient describes this as unchanged. Note for Shortness of breath: back to getting sob on exertion- she was off dulera while on prednisone- still on augmentin- but didnt take yesterday had diarrhea- - still coughing on occasion- alot of clear no fever- - no wheezing- one aerosol last night - was doing three a day- the aerosol does make difference in the sob Encounter Diagnosis: BMI 26.0-26.9,adult, Current nonsmoker (Renamed from Current non-smoker), Cough, Asthma with acute exacerbation [facility] Office Visit On: 20-Aug-2016 11:23 Encounter Reason: Cold Symptoms - Symptoms include nasal congestion, postnasal drainage, productive cough (clear ) and headache. Onset was month(s) ago. The patient describes this as worsening. Associated symptoms includ End: 20-Aug-2016 12:48 e shortness of breath, fatigue, weakness and nausea. Note for Cold symptoms: no fever but sudden onset body aches everything hurts teeth eyes head - and cough and nausea no vomit no diarrhea - Encounter Diagnosis: Influenza A, Nausea, Cough [facility] Office Visit On: 18-Aug-2016 14:02 Encounter Diagnosis: Asthma with acute exacerbation End: 19-Aug-2016 11:05 [facility] Office Visit On: 24-Jul-2016 8:57 Encounter Reason: Physical female exam - Last seen between 1-3 months ago. General health: feels well with no complaints (would like some information about the shingles vaccine. Has had chickenpox as a child. Also has a End: 07-Aug-2016 20:49 question about whether to be taking calcium or not?), has good energy level (gets winded easily upon exertion) and is sleeping well. The patient's appetite is normal. Nutrition: normal/adequate. Exercis es 3 days per week. Sleeps on average 8 hours per night. Normal bowel and bladder habits. There are no current emotional problems. screening, colonoscopy ([facility] Dr. Galeana). 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 Patient has been compliant with instructions. Current medication use: no jeremy End: 08-May-2016 9:26 e effects and compliant with dosing regimen. Patient sleeps 9 hours per night. Nutrition: balanced diet, supplemental vitamins and low salt diet. The medical issues the patient is following up for inclu de All identified problems below, cardiac issues, high cholesterol, osteoporosis/osteopenia and other (vitamin d deficient, fatigue, spinal stenosis). Note for Follow up for chronic medical issues: la c healed well no pain or numbness and still dry cough no gerd - , [ADDITIONAL REASON] Follow up tests - Diagnostic tests include other (labs ). Date: (05/01/16). 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, Encounter for screening mammogram for breast cancer (Renamed from Encounter for screening mammogram for malignant neoplasm of breast), Osteoporosis (Renamed from OP (osteoporosis)), Postmenopausal (Renamed from Postmenopausal status), Gastroesophageal reflux disease without esophagitis, ANEMIA, VITAMIN B12 DEFICIENCY NEC (281.1), Vitamin D deficiency, unspecified, Other hyperlipidemia, Laceration of left wrist, Carpal tunnel syndrome of left wrist [facility] Office Visit On: 17-Apr-2016 8:04 Encounter Reason: Follow up ER - Reason for hospitalization note: (stiches, on left arm). Patient has been compliant with instructions. The patient feels well with minor complaints (has pain in her arm with heavy lifting End: 17-Apr-2016 8:50 , and her arm aches). Patient sleeps 8 hours per night. Nutrition: balanced diet. Note for Follow up ER: feels like pain getting better and redness getting better- - not taking any neurontin only ibup rofen- not bothering her stomach - swelling going downEncounter Diagnosis: BMI 26.0- 26.9,adult, Current nonsmoker (Renamed from Current non-smoker), Cough, persistent, Other hyperlipidemia, ANEMIA, VITAMIN B12 DEFICIENCY NEC (281.1), Vitamin D deficiency, unspecified, Abnormal glucose tolerance test, Carpal tunnel syndrome of left wrist, Laceration of left wrist [facility] Phone Encounter On: 13-Apr-2016 14:45 Encounter Diagnosis: Infection End: 13-Apr-2016 14:49 [facility] Phone Encounter On: 31-Oct-2015 17:28 Encounter Diagnosis: Meningioma (225.2) End: 31-Oct-2015 17:30 [facility] Office Visit On: 05-Oct-2015 8:21 Encounter Reason: Follow up for chronic medical issues - The patient feels well with minor complaints (Still having some SOB and coughing left over from illness she had recently. She is feeling much better but still feel End: 06-Oct-2015 21:26 s like it is hanging on. Her heart will feel like it's jumping around at times. ), has decreased energy level and is sleeping well. Patient has been compliant with instructions. Current medication use : no side effects and compliant with dosing regimen. Patient sleeps 9 hours per night. Nutrition: inappropriate diet, supplemental vitamins and low salt diet. The medical issues the patient is following up for include All identified problems below, cardiac issues, high cholesterol, osteoporosis/osteopenia and other (vitamin d deficient, fatigue, spinal stenosis). Note for Follow up for chronic medica l issues: she not totally clear from cough ??it was significantly better with the prednisone- will still cough and get tight and winded up and down stairs- not productive- no feverreally watching the d iet and helps her weight and gerd and bp is good-s till follwoing with wietecha for bones vertigo goneEncounter Diagnosis: Cough, persistent, Vitamin D deficiency, unspecified, Other hyperlipidemia, Gastroesophageal reflux disease without esophagitis , Calcium nephrolithiasis, Meningioma (225.2), Current nonsmoker (Renamed from Current non-smoker), ANEMIA, VITAMIN B12 DEFICIENCY NEC (281.1), Abnormal glucose tolerance test [facility] Visit On: 29-Aug-2015 11:06 Encounter Reason: Follow up acute care visit - The patient does not feel well. Patient has been compliant with instructions. Current medication use: no side effects. Impact of disease: impact on recreation-mild. Nutritio End: 29-Aug-2015 11:36 n: balanced diet. Note for Follow up acute care visit: I was clear for days with outhy cough and mucous, then suddenly Saturday night progressively worse. Encounter Diagnosis: Cough, persistent, Sinus drainage [facility] Office Visit On: 18-Aug-2015 11:34 Encounter Diagnosis: Cough, persistent, Current nonsmoker (Renamed from Current non-smoker) End: 18-Aug-2015 12:08 [facility] Visit On: 27-May-2015 8:27 Encounter Reason: Follow up for chronic medical issues - The patient feels well with minor complaints (thinks she has a kidney stone- on cipro right now- leaving for [place] next ), has decreased energy level and End: 29-May-2015 22:26 is sleeping poorly (because of auction coming up on their house). Patient has been compliant with instructions. Current medication use: no side effects and compliant with dosing regimen. Patient sleeps 5 hours per night. Nutrition: inappropriate diet, supplemental vitamins and low salt diet. The medical issues the patient is following up for include All identified problems below, cardiac issues, high cholesterol, osteoporosis/osteopenia and other (vitamin d deficient, fatigue, spinal stenosis). Note for Follow up for chronic medical issues: bp is good - she thinks had a stone- not sure if still robles s- week ago had dysuria- and abd pain- she feels better now- she had started on cipro- no stone painnow- still little dysuria, [ADDITIONAL REASON] Follow up tests - Diagnostic tests include other (labs ). Date: (05/12/15). Encounter Diagnosis: Hyperlipidemia, unspecified, Abnormal Glucose Tolerance Test (790.22), Need for prophylactic vaccination and inoculation against influenza (Renamed from Need for immunization against influenza), UTI symptoms, ANEMIA, VITAMIN B12 DEFICIENCY NEC (281.1), Positional vertigo, GERD (gastroesophageal reflux disease) [facility] Office Visit On: 19-Apr-2015 13:09 Encounter Reason: UTI - The urinary symptoms are described as painful urination and burning. The symptoms have been occurring for 1 day and have been constant. The urine is described as clear. There is no history of sex End: 19-Apr-2015 13:30 ual contact with a person having an STD, use of tampons, possible vaginal foreign body, douching, use of contraceptive devices, sexual assault, trauma, vulvovaginal exposure to chemical irritants, sexua l contact with a person exposed to an STD, recent catheterization, new sexual partner or current catheterization. There is a medical history of kidney stones and recurrent urinary tract infections. The patient denies the use of oral contraceptives, antibiotics, hormone replacement therapy or pyridium/uristat.Encounter Diagnosis: UTI symptoms [facility] Historical Summary On: 15-Mar-2015 16:19 [facility] End: 15-Mar-2015 16:20 Refill Request On: 27-Jan-2015 13:45 Encounter Diagnosis: Urinary Frequency (788.41) End: 27-Jan-2015 13:47 [facility] Office Visit On: 24-Jan-2015 13:30 Encounter Reason: Follow up for chronic medical issues - The patient feels well with minor complaints (thinks she has a uti again, sees seven tomorrow), has decreased energy level and is sleeping well. Patient has been End: 25-Jan-2015 10:37 compliant with instructions. Current medication use: no side effects and compliant with dosing regimen. Patient sleeps 8 hours per night. Nutrition: inappropriate diet, supplemental vitamins and low sa lt diet. The medical issues the patient is following up for include All identified problems below, cardiac issues, high cholesterol, osteoporosis/osteopenia and other (vitamin d deficient, fatigue, spin al stenosis). Note for Follow up for chronic medical issues: vertigo improving and having uti sx again and just started has followup with seven and rosendo belcher he has her on indapamide- chol up again - she not exercising routinely, [ADDITIONAL REASON] Follow up tests - Diagnostic tests include other (labs ). Date: (01/07/15). , [ADDITIONAL REASON] Dysuria - The onset of the dysuria has been sudden and has been occurring in a p ersistent pattern for hours. The course has been increasing. The dysuria is described as mild. The quality of the pain is described as a burning sensation The dysuria is described as being located in th e vaginal area. The dysuria radiates to the right flank. The symptoms have been associated with frequency, history of passing a stone, past history of urinary tract infections and urgency, while the sym ptoms have not been associated with chills, fever, hematuria or incontinence. Encounter Diagnosis: Abnormal Glucose Tolerance Test (790.22), Hyperlipidemia, Unspecified (272.4), GERD (530.81), Dysuria (Renamed from Difficult or painful urination), ANEMIA, VITAMIN B12 DEFICIENCY NEC (281.1), Positional vertigo [facility] Office Visit On: 11-Jan-2015 14:28 Encounter Reason: Dizziness/ - The onset of the dizziness/ has been sudden and has been occurring in a persistent pattern for 2 days. The course has been increasing. The dizziness/ is characterized as lightheadedness, sp End: 11-Jan-2015 22:52 inning of the environment and feeling in the head. The dizziness/ is precipitated by position change and standing suddenly. The symptoms have been associated with loss of balance and nausea, while the s ymptoms have not been associated with fever, headache, seizures, syncope, tinnitus or vomiting. Note for Dizziness/: vertigo happened when rolled in bed yesterday happens with position change ok when not moving no dobule vision weak numb or slurred speech no veer off to one sideEncounter Diagnosis: Positional vertigo [facility] Office Visit On: 13-Dec-2014 11:57 Encounter Reason: Follow up acute care visit - The patient does not feel well, has decreased energy level and worsening. Patient has been compliant with instructions. Current medication use: no side effects and not consi End: 13-Dec-2014 22:39 dered effective by patient. Patient sleeps 8 hours per night. Nutrition: balanced diet. The medical issues the patient is following up for include All identified problems below and URI. Note for Follow up acute care visit: she has had 3 infection over last few months - bad pink eye - then uti then respiratory - just finished course of levaquin- and used mucinex- and used inhaler- and not feeling lik e help- - coughing still- the more talks - feels tight- clear sputum- - using antihistamineEncounter Diagnosis: Urinary Frequency (788.41), ACUTE CONJUNCTIVITIS (372.01), Pain, eye, left, Body aches, Fatigue (780.79), Cough (786.2) [facility] Office Visit On: 02-Dec-2014 10:48 Encounter Reason: Upper Respiratory Infection (URI) - The last clinic visit was 1 week(s) ago. No changes in management were made at the last visit. Symptoms include nasal congestion, runny nose and productive cough. The End: 02-Dec-2014 13:39 patient describes this as moderate in severity.Encounter Diagnosis: Body aches, Cough (786.2), BRONCHITIS, NOT SPECIFIED ACUTE OR CHRONIC (490.) [facility] Office Visit On: 23-Nov-2014 13:19 Encounter Reason: Urinary problems - The onset of the urinary problems has been sudden and they have been occurring in a persistent pattern for 5 days. The course has been constant. The urinary problems are described as End: 23-Nov-2014 13:37 moderate. The urinary problem is characterized as frequency, urgency and painful urination. There has been no associated fever / chills, back pain, nausea or blood in urine. Past medical history : recurrent urinary tract infection. Encounter Diagnosis: Dysuria (Renamed from Difficult or painful urination) [facility] Office Visit On: 18-Oct-2014 8:40 Encounter Reason: Red Eye - Symptoms include eye redness, eye discharge, eye pain, eye itching, eye burning, lacrimation and foreign body sensation. Symptoms are located in the left eye. Onset was sudden 4 day(s) ago. Th End: 18-Oct-2014 9:01 ere is no known event that preceded symptom onset. The symptoms occur constantly. The patient describes this as moderate in severity and worsening. Associated symptoms include photophobia, while associated symptoms do not include headache. Encounter Diagnosis: ACUTE CONJUNCTIVITIS (372.01), Pain, eye, left [facility] Office Visit On: 10-Sep-2014 10:34 Encounter Reason: Follow up tests - Diagnostic tests include other (labs and bone density). Date: (08/27/14). Note for Discuss procedure results: she is over cough and chest pain- really trying to do more weight bearing exerciseEncounter Diagnosis: End: 12-Sep-2014 20:23 Hyperlipidemia, Unspecified (272.4), Osteoporosis (Renamed from OP (osteoporosis)), Unspecified vitamin D deficiency (268.9), ANEMIA, VITAMIN B12 DEFICIENCY NEC (281.1), screening [facility] Office Visit On: 29-Jul-2014 14:17 Encounter Diagnosis: SYMPTOMS INVOLVING RESPIRATORY SYSTEM AND OTHER CHEST SYMPTOMS; COUGH (786.2), Wheezing (786.07), Chest pain at rest End: 29-Jul-2014 15:17 [facility] Office Visit On: 21-Jun-2014 14:53 Encounter Reason: Follow up for chronic medical issues - The patient feels well with minor complaints (unable to lose weight- a lot of mucas buildup when eats carbs- thinks its gluten), has good energy level and is sleep End: 21-Jun-2014 21:21 ing well. Patient has been compliant with instructions. Current medication use: no side effects and compliant with dosing regimen. Patient sleeps 8 hours per night. Nutrition: inappropriate diet, supple mental vitamins and low salt diet. The medical issues the patient is following up for include All identified problems below, cardiac issues, high cholesterol, osteoporosis/osteopenia and other (vitamin d deficient, fatigue, spinal stenosis). Note for Follow up for chronic medical issues: feels retaining more fluid when she eats salt- wants prn diuretic - urine molina doing ok and dizziness better men ingioma scan was stable - bp is good working on diet not exercise discussed this and watch saltEncounter Diagnosis: Abnormal Glucose Tolerance Test (790.22), Fluid retention, ANEMIA, VITAMIN B12 DEFICIENCY NEC (281.1), Unspecified vitamin D deficiency (268.9), Hyperlipidemia, Unspecified (272.4), Osteopenia (733.90), Need for vaccination against Streptococcus pneumoniae [facility] Office Visit On: 09-Jun-2014 8:52 Encounter Reason: Nurse procedure visit - Reason for visit: other (ua check after antibiotic).Encounter Diagnosis: Hematuria (599.70), Need for prophylactic vaccination and inoculation against influenza (V04.81) End: 09-Jun-2014 9:17 [facility] Phone Encounter On: 24-May-2014 14:07 Encounter Diagnosis: Hematuria (599.70) End: 24-May-2014 14:11 [facility] Phone Encounter On: 21-May-2014 12:33 Encounter Diagnosis: Hematuria (599.70) End: 21-May-2014 16:01 [facility] Phone Encounter On: 20-May-2014 14:53 Encounter Diagnosis: Hematuria (599.70) End: 20-May-2014 15:03 [facility] Office Visit On: 23-Mar-2014 11:00 Encounter Reason: Dizziness/ - The onset of the dizziness/ has been gradual and has been occurring in an intermittent pattern for 3 months. The course has been increasing. The dizziness/ is characterized as lightheadedne End: 23-Mar-2014 22:33 ss and feeling in the head. The symptoms have been associated with loss of balance, while the symptoms have not been associated with depression, diabetes mellitus, fever, headache, nausea, seizures, syn cope, tinnitus or vomiting. Note for Dizziness/: feels off balance- walking and suddenly feels off balance- no vertigo- -no headache or viison change - no pareshtesia - no chest pain or sob - - no sin us stuff - question drinking enough water- - doing tea with aspartame- feels fullness in head Encounter Diagnosis: Dizziness (780.4), ANEMIA, VITAMIN B12 DEFICIENCY NEC (281.1), Meningioma (225.2) [facility] Phone Encounter On: 03-Mar-2014 13:13 Encounter Diagnosis: Fatigue (780.79) End: 03-Mar-2014 13:18 [facility] Phone Encounter On: 15-Feb-2014 17:16 Encounter Diagnosis: Abnormal blood chemistry (790.6) End: 15-Feb-2014 17:18 [facility] Office Visit On: 19-Jan-2014 10:10 Encounter Reason: Nurse procedure visit - Reason for visit: other (recheck urine).Encounter Diagnosis: Hematuria (599.70) End: 19-Jan-2014 10:52 [facility] Office Visit On: 08-Jan-2014 15:48 Encounter Diagnosis: Osteopenia (733.90) End: 08-Jan-2014 15:53 [facility] Phone Encounter On: 01-Jan-2014 8:33 Encounter Diagnosis: Unspecified Diagnosis End: 01-Jan-2014 8:48 [facility] Office Visit On: 29-Dec-2013 14:05 Encounter Reason: Follow up hospital - Reason for ER visit: note: (Polynephritis and kidney stones). The patient feels well with minor complaints (neck pain), has good energy level and is sleeping well. Patient has been End: 29-Dec-2013 21:43 compliant with instructions. Current medication use: no side effects and compliant with dosing regimen. Patient sleeps 7 hours per night. Note for Follow up hospital: Pt broke her right foot and is robles ving surgery tomorrow with Dr. Jalil Machado at [facility].- had left stone and stent in uterer she was really sick at time- now feeling better- went home after stent then went back and had lithotripsy, [ADDITIONAL REASON] Neck pain - The onset of the neck pain has been gradual following no specific incident and has been occurring in a persistent pattern for 2 months. The course has been gradually wo rsening. The neck pain is described as mild to moderate. The neck pain is described as being located in the sides of cervical spine. The back pain does not radiate Note for Neck pain : described as a pulling feeling. no trauma feels like spasm- got some improve with cyclobenzaprine- and no radicular sx Encounter Diagnosis: Nephrolithiasis (274.11), Nonspecific abnormal findings on radiological and examination of intrathoracic organs, Neck Pain (Renamed from Cervical pain), Pyelonephritis [facility] Office Visit On: 25-Sep-2013 11:44 Encounter Reason: Follow up acute care visit - The patient does not feel well and worsening. Patient has been compliant with instructions. Current medication use: no side effects and not considered effective by patient. End: 25-Sep-2013 12:16 The medical issues the patient is following up for include All identified problems below and UTI.Encounter Diagnosis: Hematuria (599.70), URINARY TRACT INFECTION, SITE NOT SPECIFIED (599.0) [facility] Historical Summary On: 21-Sep-2013 18:27 Encounter Diagnosis: Osteopenia (733.90) End: 21-Sep-2013 18:34 [facility] Office Visit On: 07-Sep-2013 9:48 Encounter Reason: UTI - The urinary symptoms are described as painful urination, frequency, urgency and burning. The symptoms have been occurring for weeks and have been recurrent. The urine is described as clear, purul End: 07-Sep-2013 10:05 ent and malodorous. There has been no associated fever, abdominal pain, chills, diarrhea, nausea, vomiting or low back pain. Note for Infection: started the 10th- and took 2 weeks of cipro- and did no thing so took 3 days augmentin and seemed to help- nopain or signs of stone- taking probiotics Encounter Diagnosis: SYMPTOMS INVOLVING URINARY SYSTEM; DYSURIA (788.1) [facility] Office Visit On: 20-Aug-2013 10:24 Encounter Reason: Follow up for chronic medical issues - The patient feels well with minor complaints (omeprazole not working for her GI- feels the generic is the issue and the metoprolol too-), has good energy level and End: 20-Aug-2013 11:09 is sleeping well. Patient has been compliant with instructions. Current medication use: no side effects and compliant with dosing regimen. Patient sleeps 8 hours per night. Nutrition: inappropriate t, supplemental vitamins and low salt diet. The medical issues the patient is following up for include All identified problems below, cardiac issues, high cholesterol, osteoporosis/osteopenia and other (vitamin d deficient, fatigue, spinal stenosis). Note for Follow up for chronic medical issues: she feels like stomach always inflamed feels like generic not working and bp is good and weight stable, [ADDITIONAL REASON] Follow up, Laboratory Test Results - Date: (08/15/13). Encounter Diagnosis: Abnormal Glucose Tolerance Test (790.22), GERD (530.81), Unspecified vitamin D deficiency (268.9), Hyperlipidemia, Unspecified (272.4), Meningioma (225.2) , Osteopenia (733.90), ANEMIA, VITAMIN B12 DEFICIENCY NEC (281.1), Palpitations (785.1), screening [facility] Prescription Refill On: 26-May-2013 8:33 Encounter Diagnosis: SHINGLES,NEED FOR PROPHYLACTIC VACCINATION AND INOCULATION AGAINST (V05.8) End: 26-May-2013 8:37 [facility] Office Visit On: 25-May-2013 13:17 Encounter Reason: Annual Medicare Exam - The patient had reviewed and updated the family history, medication/s, past medical history and social history. Yes the patient did have a mini mental status exam done today. The End: 25-May-2013 20:04 activities of daily living the patient needs help with are none. The patient has missed or ran out of medications to soon, driven in past 6 months, fallen in the past 6 months and put area rugs through house, but the patient has not had fecal incontinence, had urinary incontinence, gotten lost, has a medalert necklace or bracelet or put handrails in bathroom. The patient has completed the following pr eventative measures: mammography. The patient does have durable power of deputy attorney general and living will. The patient has noticed nothing from the geriatic depression scale. 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 Note for Annual Medicare Exam: has followup mammo scheduled this year and bone density due next year , [ADDITIONAL REASON] Well Women Exam - The patient feels well with no complaints, has good energy level and is sleeping well. Pap smear: date of last pap: (2007). Contraceptive history: The patient is n ot using any method of contraception at this time. Patient exercises a weekly. The patient's libido is decreased. The patient reports that she performs monthly self breast exam. Calcium intake includes 1200 mg with Vit D daily supplement. Previous evaluations: hysterectomy (total). The patient denies the use of oral contraceptives or hormone replacement therapy. breast cancer in first degree relative (daughter). Menstruation: Last menstrual period date: (post-aide). Encounter Diagnosis: Annual physical exam (V70.0), Well Woman Exam , Medicare (V76.2) (Renamed from Well Woman Exam , Medicare (V76.2, V72.31)) [facility] Office Visit On: 14-May-2013 13:10 Encounter Reason: Upper Respiratory Infection (URI) - The last clinic visit was 1 week(s) ago. No changes in management were made at the last visit. Symptoms include nasal congestion, runny nose, hoarseness, productive c End: 14-May-2013 15:03 ough and wheezing. Onset was sudden. The symptoms occur constantly. The patient describes this as moderate in severity and unchanged. Associated symptoms include headache and clear sputum, while associa anum symptoms do not include shortness of breath. Current treatment includes non- prescription cold medication.Encounter Diagnosis: BRONCHITIS, NOT SPECIFIED ACUTE OR CHRONIC (490.), ACUTE SINUSITIS, UNSPECIFIED (461.9), Need for prophylactic vaccination and inoculation against influenza (V04.81) [facility] Office Visit On: 06-Mar-2013 8:24 Encounter Reason: Follow up for chronic medical issues - The patient feels well with no complaints, has decreased energy level (weather related) and is sleeping well. Patient has been compliant with instructions. Current End: 09-Mar-2013 7:34 medication use: no side effects and compliant with dosing regimen. Patient sleeps 8 hours per night. Nutrition: inappropriate diet, supplemental vitamins and low salt diet. The medical issues the patie nt is following up for include All identified problems below, cardiac issues, high cholesterol, osteoporosis/osteopenia and other (vitamin d deficient, fatigue, spinal stenosis). Note for Follow up for chronic medical issues: uti sx gone - she feels due for b12 having trouble getting script- saw Lily- couldnt explain pupil- did think she has meningioma - and followup mri in year- no gerd and bp is good - weight coming down and trying Encounter Diagnosis: ANEMIA, VITAMIN B12 DEFICIENCY NEC (281.1), Hyperlipidemia, Unspecified (272.4), GERD (530.81), Unspecified vitamin D deficiency (268.9), Meningioma (225.2), Abnormal Glucose Tolerance Test (790.22) [facility] Office Visit On: 20-Feb-2013 13:46 Encounter Reason: Urinary problems - The onset of the urinary problems has been sudden and they have been occurring in a persistent pattern for 1 day. The course has been constant. The urinary problems are described as m End: 20-Feb-2013 14:04 oderate. There has been associated back pain. Past medical history : recurrent urinary tract infection.Encounter Diagnosis: Cystitis,Acute (595.0), Hematuria (599.70) [facility] Phone Encounter On: 10-Feb-2013 13:43 Encounter Diagnosis: Hyperlipidemia, Unspecified (272.4) End: 10-Feb-2013 13:48 [facility] Office Visit On: 30-Jan-2013 9:34 Encounter Reason: Follow up acute care visit - The patient feeling better since last seen and improving. Patient has been compliant with instructions. Current medication use: no side effects and compliant with dosing reg End: 30-Jan-2013 10:19 imen. Patient sleeps 8 hours per night. The medical issues the patient is following up for include All identified problems below and other (fell and hit head and was having back pain). Note for Follow up acute care visit: Pt also started with UTI symptoms of frequency and burning so started on cipro that she has for this reason and is currently on it yet. No more symptoms as of right now. 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.41), Pain in thoracic spine (724.1), possible meningioma of brain , URINARY TRACT INFECTION, SITE NOT SPECIFIED (599.0) [facility] Office Visit On: 23-Jan-2013 13:39 Encounter Reason: Back Pain - The injury involved the upper back (across scapula - all the way across).Encounter Diagnosis: Pain in thoracic spine (724.1), 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 Patient has been compliant with instructions. Current End: 04-Nov-2012 8:59 medication use: experiencing side effects and compliant with dosing regimen. Patient sleeps 8 hours per night. Nutrition: inappropriate diet, supplemental vitamins and low salt diet. The medical issues the patient is following up for include All identified problems below, cardiac issues, high cholesterol, osteoporosis/osteopenia and other (vitamin d deficient, fatigue, spinal stenosis). weight : ( 13 6 to 139). Note for Follow up for chronic medical issues: Pt is ready for spring weather and sun, feels she needs it and would feel better but states she doesnt think she's depressed and dont need add ressed.- she in general is feeling better than was less fatigue- and sinus better - didnt get labs but will- bp is good- atelvia doing fine on and back feels better when she takes it no gerd or dysphagi a- sinus gone and no issues with breast- toprol works to suppresss palpitationsEncounter Diagnosis: Fatigue (780.79), SYMPTOM, FREQUENCY, URINARY (788.41), Unspecified vitamin D deficiency (268.9), Other and unspecified hyperlipidemia (272.4), Abdominal Pain,General (789.07), ANEMIA, VITAMIN B12 DEFICIENCY NEC (281.1), OTHER SIGNS AND SYMPTOMS IN BREAST (611.79), Eustachian tube dysfunction (381.81), Palpitations (785.1), Osteopenia (733.90), GERD (530.81), Shoulder Pain (719.41) [facility] Office Visit On: 07-Oct-2012 8:54 Encounter Reason: Follow up acute care visit - The patient feels the same and has decreased energy level. Patient has been compliant with instructions. Current medication use: no side effects, compliant with dosing regim End: 07-Oct-2012 9:27 en and not considered effective by patient (onlt effective as long as in system- as soon as wears off comes right back ). Patient sleeps 6 hours per night. The medical issues the patient is following up for include All identified problems below and URI. Note for Follow up acute care visit: Pt is on her second round of antibiotic and feels somewhat better than initally but now feels she's going backw ards again. Feels achy after cleaning house yesterday. head achey and full- not alot of congestion- alot of fatigue- discomfort lefft cheek- and into left ear- still taking augmentinEncounter Diagnosis: Diarrhea (787.91), Fatigue (780.79), ACUTE SINUSITIS, UNSPECIFIED (461.9) [facility] Office Visit On: 15-Sep-2012 9:24 Encounter Reason: Sinusitis/ - The duration of the symptoms are 1 week The course has been worsening. The sinusitis/ has no relieving factors. Associated features include The symptoms have been associated with cough, ear End: 15-Sep-2012 9:53 pain, nasal discharge/stuffy nose, sinus pain and teeth pain, while the symptoms have not been associated with sore throat or swollen lymph glands. No previous evaluations were reported.Encounter Diagnosis: ACUTE SINUSITIS, UNSPECIFIED (461.9) [facility] Office Visit On: 02-Sep-2012 11:40 Encounter Reason: Follow up acute care visit - The patient feeling better since last seen and improving. Patient has been compliant with instructions. Current medication use: no side effects, compliant with dosing regime End: 02-Sep-2012 21:59 n and not considered effective by patient (onlt effective as long as in system- as soon as wears off comes right back ). Patient sleeps 6 hours per night. The medical issues the patient is following up for include All identified problems below and other (left breast mastitis). Note for Follow up acute care visit: Improving but has notices some deep ache up into armpit- has noticed off and on since t hursd- no fever - rdness all gone- and she said when was taking the oral antiobitoic when was time to take again would get ache- - doesnt feel tender - had mammo in jul Encounter Diagnosis: Mastitis (611.0), OTHER SIGNS AND SYMPTOMS IN BREAST (611.79) [facility] Office Visit On: 22-Aug-2012 9:58 Encounter Reason: Breast Problems - Symptoms include breast pain, breast skin change and breast erythema. The patient complains of breast problems in the left nipple. The problems are described as moderate. Onset was deric End: 22-Aug-2012 11:32 den 1 day(s) ago. Onset followed trauma (recent mammo?). Associated symptoms do not include fever, fatigue or swollen glands.Encounter Diagnosis: Rash (782.1), Mastitis (611.0), FAMILY HX - BREAST CANCER (V16.3) [facility] Office Visit On: 01-Jul-2012 9:03 Encounter Reason: Follow up, Laboratory Test Results - Date: (06/30/12). Current symptoms/reason for visit include/s Follow up visit with no current symptoms. Note for Follow up to discuss laboratory test results: labs End: 01-Jul-2012 11:38 are on paper- had them done at [facility]. Pt is currently on Macrobid for UTI from [facility].- bp is good and weight is coming down- uti sx gone- she really likes the atelvia but had been off for long time had hard time getting so thinks that is why back little worseEncounter Diagnosis: Other and unspecified hyperlipidemia (272.4), ANEMIA, VITAMIN B12 DEFICIENCY NEC (281.1), Unspecified vitamin D deficiency (268.9), GERD (530.81), Osteopenia (733.90), URINARY TRACT INFECTION, SITE NOT SPECIFIED (599.0) [facility] Annotation/Addendum On: 27-Jun-2012 9:58 Encounter Diagnosis: Unspecified Diagnosis End: 27-Jun-2012 10:04 [facility] Office Visit On: 23-Jun-2012 14:47 Encounter Reason: Urinary Tract Infection, Chronic - The last clinic visit was 2 week(s) ago. Management changes made at the last visit include stopping medication (finished Cipro). Symptoms include dysuria, urinary urge End: 23-Jun-2012 15:20 ncy and malodorous urine. The patient describes this as mild and unchanged. Symptoms are exacerbated by voiding (prior to void has pain and burning sensation.).Encounter Diagnosis: SYMPTOM, FREQUENCY, URINARY (788.41) [facility] Office Visit On: 27-May-2012 9:01 Encounter Reason: Follow up, Diagnostic Procedure Results - Diagnostic tests include other (bone dexa). Date: (05/06/12). Follow up visit with no current symptoms. Note for Follow up, Diagnostic Procedure Results: raiza h End: 27-May-2012 10:05 as been off atelvia becuase she has been waiting for insurance to deal with the issues- but in mail again- she has been off at least a couple months- she does tolerate the atelvia well- no gerd or dysph agia- not achey rotuinely- she is takign vit d and has to l imit how much calcium due to kidney stones so can only take 600-900 nahid a day- not exercising routinely- but has equipemntEncounter Diagnosis: Osteopenia (733.90), Need for prophylactic vaccination and inoculation against influenza (V04.81), Unspecified vitamin D deficiency (268.9), Other and unspecified hyperlipidemia (272.4), ANEMIA, VITAMIN B12 DEFICIENCY NEC (281.1), screening [facility] Phone Encounter On: 11-Jan-2012 14:23 Encounter Diagnosis: Low back pain (724.2) End: 11-Jan-2012 14:25 [facility] Office Visit On: 09-Jan-2012 15:24 Encounter Reason: Follow up acute care visit - The patient feeling better since last seen and improving. Patient has been compliant with instructions. Current medication use: no side effects, compliant with dosing regime End: 09-Jan-2012 16:08 n and not considered effective by patient (onlt effective as long as in system- as soon as wears off comes right back ). The medical issues the patient is following up for include All identified problems below and other (back pain/ back spasm). Encounter Diagnosis: Low back pain (724.2) [facility] Office Visit On: 04-Jan-2012 14:34 Encounter Reason: Back Pain - This condition occurred in association with an established activity (started after she did some edging). The injury involved the mid back. This occurred 8 day(s) ago at home. The activity be End: 04-Jan-2012 15:33 libby day(s) ago. Symptoms include back pain and spasm. Symptoms are located in the midline upper back. The pain radiates to the abdomen. The patient describes the pain as aching. Onset was sudden. The sy mptoms occur constantly. The patient describes symptoms as severe and worsening. Current treatment includes rest and heat. Note for Back Pain: took skelaxin today and she can walk nowEncounter Diagnosis: Muscle spasm (728.85), Low back pain (724.2) [facility] Office Visit On: 18-Dec-2011 9:12 Encounter Reason: Follow up for chronic medical issues - The patient feels well with no complaints, has good energy level and is sleeping well. Patient has been compliant with instructions. Current medication use: no jeremy End: 18-Dec-2011 9:47 e effects and compliant with dosing regimen. Patient sleeps 8 hours per night. Nutrition: inappropriate diet, supplemental vitamins and low salt diet. The medical issues the patient is following up for include All identified problems below, cardiac issues (palpitations), high cholesterol, osteoporosis/osteopenia and other (vitamin d deficient, fatigue, spinal stenosis). weight : ( 136 to 139). Note fo r Follow up for chronic medical issues: No labs were done for today and is fasting this am.- she retired a month again and things going well- she did see patrick and they did egd and colonsocopy- all o k and told her 10 years and sxtill has to see seven- if she watches diet no cough and no abd pain and no gerd -egd ok she started exercising faithfully-no issues with the atelviaEncounter Diagnosis: Hyperlipidemia, Unspecified (272.4), GERD (530.81), Osteopenia (733.90), Palpitations (785.1), Unspecified vitamin D deficiency (268.9), Bladder stone (594.1), ANEMIA, VITAMIN B12 DEFICIENCY NEC (281.1) [facility] Office Visit On: 17-Aug-2011 9:57 Encounter Reason: Follow up, Laboratory Test Results - Lab results: other (high methamelonic level). Date: (07/10/11- in scanned documents). Current symptoms/reason for visit include/s Follow up visit with no current sym End: 19-Aug-2011 22:30 ptoms. Note for Follow up, Laboratory Test Results: Pt also had a ct abd at [facility]- called for results to be faxed.Encounter Diagnosis: Bladder stone (594.1), ANEMIA, VITAMIN B12 DEFICIENCY NEC (281.1), Hyperlipidemia, Unspecified (272.4), Osteopenia (733.90) [facility] Office Visit On: 03-Jul-2011 9:45 Encounter Reason: Follow up for chronic medical issues - The patient feels well with minor complaints ( new complaint of right sided rib pain), has good energy level and is sleeping well. Patient has been compliant with End: 03-Jul-2011 10:41 instructions. Current medication use: no side effects and compliant with dosing regimen. Patient sleeps 8 hours per night. Nutrition: inappropriate diet, supplemental vitamins and low salt diet. The med ical issues the patient is following up for include All identified problems below, cardiac issues (palpitations), high cholesterol, osteoporosis/osteopenia and other (vitamin d deficient, fatigue, spina l stenosis). weight : ( 136 to 139). 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 Right sided after leaning over hot tub to clean it, felt a sharp pain and since then has been sore and notices more with certain movements. Radiates to front of rib cage. No chest pain or sob or fever. Encounter Diagnosis: Need for prophylactic vaccination and inoculation against influenza (V04.81), Unspecified vitamin D deficiency (268.9), Palpitations (785.1), Hyperlipidemia, Unspecified (272.4) , Osteopenia (733.90), ANEMIA, VITAMIN B12 DEFICIENCY NEC (281.1), recurrent uti, GERD (530.81), screening [facility] Office Visit On: 22-Jun-2011 9:46 Encounter Reason: Urinary problems - The urinary problems have been occurring for 5 days. The course has been increasing.Encounter Diagnosis: Cystitis,Acute (595.0), GERD (530.81) End: 22-Jun-2011 10:14 [facility] Lab Order On: 22-Jun-2011 9:28 Encounter Diagnosis: Hyperlipidemia, Unspecified (272.4), Unspecified vitamin D deficiency (268.9) End: 22-Jun-2011 9:31 [facility] Office Visit On: 24-May-2011 11:30 Encounter Diagnosis: recurrent uti, Low back pain (724.2) End: 24-May-2011 11:32 [facility] Office Visit On: 11-May-2011 9:56 Encounter Reason: Urinary problems - The onset of the urinary problems has been sudden and they have been occurring in a persistent pattern for 1 week. The course has been increasing. The urinary problems are described a End: 11-May-2011 10:24 s moderate. There has been no associated fever / chills, back pain, nausea or blood in urine. Past medical history : recurrent urinary tract infection.Encounter Diagnosis: SYMPTOMS INVOLVING URINARY SYSTEM; DYSURIA (788.1) [facility] Office Visit On: 18-Dec-2010 13:28 Encounter Diagnosis: Low back pain (724.2) End: 18-Dec-2010 13:33 [facility] Office Visit On: 12-Dec-2010 12:02 Encounter Reason: Dysuria - The onset of the dysuria has been gradual and has been occurring in an intermittent pattern for 5 days. The course has been recurrent. The dysuria is described as mild. The quality of the pain End: 12-Dec-2010 12:44 is described as a discomfort The dysuria is described as being located in the vaginal area. The dysuria does not radiate. The symptoms have been associated with frequency, history of passing a stone, p ast history of urinary tract infections and urgency, while the symptoms have not been associated with chills, fever, hematuria or incontinence. Note for Dysuria: Pt has cipro at home for post-coital u se and has been taking it here and there for the last couple days.takes nothing for her to get uti- she isnt able to drink water at work now- she will take a cipro if happens and helps- but now her dose got decreased to 250- and not as good , [ADDITIONAL REASON] Lumps - The onset of the lumps has been sudden and has been occurring in a persistent pattern for 2 weeks. The course has been constant. The lumps are described as moderate. Note fo r Lumps: lump on right wrist- No known injury or cause. No pain, redness or oozing. No fever. Encounter Diagnosis: SYMPTOMS INVOLVING URINARY SYSTEM; DYSURIA (788.1), GANGLION NOS (727.43), GERD (530.81) [facility] Phone Encounter On: 11-Jul-2010 15:15 [facility] End: 11-Jul-2010 15:16 Phone Encounter On: 28-Jun-2010 14:37 Encounter Diagnosis: GERD (530.81) End: 28-Jun-2010 14:40 [facility] Phone Encounter On: 30-May-2010 17:12 Encounter Diagnosis: Low back pain (724.2) End: 30-May-2010 17:15 [facility] Phone Encounter On: 30-May-2010 15:40 Encounter Diagnosis: Low back pain (724.2) End: 30-May-2010 15:44 [facility] Phone Encounter On: 30-May-2010 15:27 Encounter Diagnosis: Unspecified Diagnosis End: 30-May-2010 15:35 [facility] Phone Encounter On: 17-May-2010 10:24 Encounter Diagnosis: Pain in thoracic spine (724.1) End: 17-May-2010 10:28 [facility] Office Visit On: 17-May-2010 9:29 Encounter Reason: Follow up for chronic medical issues - The patient feels well with minor complaints (back continues to hurt- had to stop the statin d/t severe myalgia) ,has good energy level and is sleeping well. Patie End: 17-May-2010 10:24 nt has been compliant with instructions. Current medication use: no side effects and compliant with dosing regimen. Patient sleeps 8 hours per night. Nutrition: inappropriate diet ,supplemental vitamins and low salt diet. The medical issues the patient is following up for include All identified problems below ,cardiac issues (palpitations) ,high cholesterol ,osteoporosis/osteopenia and other (vitamin d deficient, fatigue, spinal stenosis). weight : (home- 136 to 139). Note for Follow up for chronic medical issues: she had labs yesterday and b12 has made her feel alot better- alot more energy- stil lhaving very focal back pain-she stopped lipitor gave her myalgias, [ADDITIONAL REASON] Follow up, Diagnostic Procedure Results - Diagnostic tests include X- Ray (spine- in scanned documents). Date: (05/16/10). 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 history: Patient is not currently . , End: 10-May-2010 10:58 [ADDITIONAL REASON] Back pain - The onset of the pain has been sudden and has been occurring in an intermittent pattern for months. The course has been constant. The symptoms have no relieving factors. There has been no associated history of back surgery ,leg weakness or paresthesias in leg. Encounter Diagnosis: Low back pain (724.2), ANEMIA, VITAMIN B12 DEFICIENCY NEC (281.1), methylmalonic acid elevatin [facility] Phone Encounter On: 18-Apr-2010 15:27 [facility] End: 18-Apr-2010 15:30 Office Visit On: 22-Mar-2010 8:49 Encounter Reason: UTI - The urinary symptoms are described as frequency ,urgency and burning. The symptoms have been occurring for 2 days and have been constant. Encounter Diagnosis: SYMPTOM, FREQUENCY, URINARY (788.41), Fatigue (780.79) End: 22-Mar-2010 9:09 [facility] Office Visit On: 07-Feb-2010 10:29 Encounter Reason: Follow up, Diagnostic Procedure Results - Diagnostic tests include other (bone dexa). Date: (01/10/10). , [ADDITIONAL REASON] Follow up, Laboratory Test Results - Lab results: other (high methamelonic level End: 07-Feb-2010 22:57 ). Date: (12/16/09 and 12/20/09). Note for Follow up, Laboratory Test Results: she has family hx of mma and mthfr- thinks some memory issues wonders if from that-- she was only taking lipitor once or twice a week Encounter Diagnosis: methylmalonic acid elevatin, Osteopenia (733.90), Other and unspecified hyperlipidemia (272.4), Unspecified vitamin D deficiency (268.9) [facility] Office Visit On: 09-Nov-2009 9:33 Encounter Reason: Follow up for chronic medical issues - The patient feels well with no complaints ,has good energy level and is sleeping well. Patient has been compliant with instructions. Current medication use: no jeremy End: 09-Nov-2009 10:24 e effects and compliant with dosing regimen. Patient sleeps 8 hours per night. Nutrition: inappropriate diet ,supplemental vitamins and low salt diet. The medical issues the patient is following up for include All identified problems below ,cardiac issues (palpitations) ,high cholesterol ,osteoporosis/osteopenia and other (vitamin d deficient, fatigue, spinal stenosis). weight :. Note for Follow up f or chronic medical issues: feeling well no dizziness and back doing better - really- trying to get back to exerciseEncounter Diagnosis: Osteopenia (733.90), Peptic Ulcer Disease (536.9), Other and unspecified hyperlipidemia (272.4), Palpitations (785.1), Fatigue (780.79), Dizziness (780.4), Low back pain (724.2) [facility] Office Visit On: 19-May-2009 10:20 Encounter Reason: Follow up, Laboratory Test Results - Lab results: other (follow up labs- Vit D, CMP, Lipids, PTH). Date: (04/05/09). Current symptoms/reason for visit include/s Follow up visit with no current symptoms. Encounter Diagnosis: vit d def End: 19-May-2009 23:25 , Osteopenia (733.90), Other and unspecified hyperlipidemia (272.4), screening, SYMPTOMS INVOLVING URINARY SYSTEM; DYSURIA (788.1) [facility] Office Visit On: 23-Feb-2009 13:31 Encounter Reason: Dizziness/ - The onset of the dizziness/ has been gradual and has been occurring in an intermittent pattern for 2 weeks. The course has been recurrent. The dizziness/ is characterized as spinning of the End: 24-Feb-2009 21:59 environment and feeling in the head. The dizziness/ is precipitated by head turning (laying down). The symptoms have been associated with headache, while the symptoms have not been associated with depr ession or diabetes mellitus. Note for Dizziness/: she is having alot of pressure in ears and feels like opening and closing- she has had this before- she is having vertigo- - it actually happens when lays down or sits up- if closes eyes the room spins- - no double vision- or weakness or numbness in arm or leg- no chest pain or sob- sometimes some pressure back of head- -no slurred speech-- she is of f balance- - no veering to one side- comes and goes- no nauseaEncounter Diagnosis: Dizziness (780.4), Eustachian tube dysfunction (381.81), vit d def, Osteopenia (733.90), Other and unspecified hyperlipidemia (272.4) [facility] Historical Summary On: 02-Feb-2009 9:40 [facility] End: 02-Feb-2009 9:43 Office Visit On: 07-Sep-2008 11:27 Encounter Reason: Muscle pain - The onset of the pain has been acute (helped push a car out of the snow 3 days before onset of rib pain) and has been occurring in a persistent pattern for 3 weeks. The course has been con End: 08-Sep-2008 9:46 stant. The pain is described as a moderate dull aching. The pain is located over the entire body (right side- ribs). The symptoms are aggravated by physical activity (pushed car out of snow 3 days prior to onset of pain). The symptoms are relieved by Motrin. Note for Muscle pain: 3 weeks ago sx started and are relieved by motrin but as soon as motrin wears off it starts to hurt again- doesnt remembe r trauma to area and dodesnt feel pushignt he car out was enough trauma- hurt to wear a bra over it- but that is better- - no change in cough or sob-she was on signulair in the past and wants to go back on becuase she does better on it and helps her cough- no sob or pleuritic chest painEncounter Diagnosis: Cough (786.2), Osteopenia (733.90), rib pain, Other and unspecified hyperlipidemia (272.4) [facility] Office Visit On: 27-Jul-2008 10:08 Encounter Reason: Sinusitis/ - The duration of the symptoms are 4 days The course has been constant. The sinusitis/ are relieved by OTC cold medications (robitussin). Associated features include The symptoms have been as End: 27-Jul-2008 12:07 sociated with cough (productive of clear mucous) ,nasal discharge/stuffy nose ,purulent nasal discharge ,red eyes and sinus pain, while the symptoms have not been associated with ear pain ,purulent disc harge from ear ,sore throat ,swollen lymph glands or teeth pain. Previous evaluations have included sinus CT scan (2006?). cardiac arrythmias. Encounter Diagnosis: BRONCHITIS, NOT SPECIFIED ACUTE OR CHRONIC (490.), Cough (786.2) [facility] Office Visit On: 29-Jun-2008 10:18 Encounter Reason: Well Women Exam - The patient feels well with minor complaints (back aches) ,has good energy level and is sleeping well. Pap smear: date of last pap: (several years). Contraceptive history: The patient End: 29-Jun-2008 11:17 is not using any method of contraception at this time. Patient does not exercise. The patient's libido is decreased. The patient reports that she performs monthly self breast exam. Calcium intake includ es 1200 mg with Vit D daily supplement. Previous evaluations: hysterectomy. The patient denies the use of oral contraceptives or hormone replacement therapy. Encounter Diagnosis: Well Women Exam (V72.31)( Pap, Mammo, Routine Female and Dexa) (Renamed from Well Woman V72.31 (p,m,d)), Osteopenia (733.90), SYMPTOMS INVOLVING URINARY SYSTEM; DYSURIA (788.1) [facility] Office Visit On: 05-Feb-2008 8:23 Encounter Reason: Rash - The onset of the rash has been sudden and has been occurring in a persistent pattern for days. The course has been increasing. The rash is characterized as red and raised above the skin. The rash End: 05-Feb-2008 21:54 was first seen on the back. Note for Rash: Pt was working outside in the [place] and thinks she has poison akshat, [ADDITIONAL REASON] Follow up, Diagnostic Procedure Results - Diagnostic tests include mammography a nd other (bone density). Date: (01-01-08, 01-07-08). Follow up visit with no current symptoms. There is no family history of breast cancer. Encounter Diagnosis: Osteopenia (733.90), Low back pain (724.2), Spinal Stenosis, Unspecified Region (724.00), poison akshat [facility] Office Visit On: 14-Jan-2008 13:30 Encounter Reason: Sinusitis/ - The duration of the symptoms are 5 days The course has been gradually worsening. The sinusitis/ has no relieving factors. Associated features include The symptoms have been associated with End: 14-Jan-2008 14:02 cough (clear mucous) ,nasal discharge/stuffy nose and red eyes, while the symptoms have not been associated with ear pain ,none reported ,purulent discharge from ear ,purulent nasal discharge ,sinus osmel n ,sore throat ,swollen lymph glands or teeth pain. No previous evaluations were reported. cardiac arrythmias. Encounter Diagnosis: BRONCHITIS, NOT SPECIFIED ACUTE OR CHRONIC (490.), Wheezing (786.07), Cough (786.2) [facility] Office Visit On: 17-Dec-2007 12:57 Encounter Reason: Follow up for chronic medical issues - The patient feels well with minor complaints (lbp, continues) ,has good energy level and is sleeping well. Patient has been compliant with instructions. Current me End: 18-Dec-2007 19:38 dication use: no side effects and compliant with dosing regimen. Nutrition: balanced diet ,supplemental vitamins and low salt diet. The medical issues the patient is following up for include All identif ied problems below ,cardiac issues (palpitations) ,high blood pressure ,high cholesterol ,osteoporosis/osteopenia and other (pud, vit d defic., fatigue). weight :. , [ADDITIONAL REASON] Follow up, Laboratory Test Results - Date: (12/16/07). , [ADDITIONAL REASON] Low Back Pain - The onset of the low back pain has been gradual and has been occurring in a persistent pattern for months. The course has been gradually worsening. The low back pain is described as a mild to moderate dull aching. The low back pain is described as being located in the lower back. The back pain does not radiate The back pain is aggravated by bending and lifting. The back pain is relieved by heat. There has been no associated abdominal pain ,chills ,back stiffness ,dysuria ,fever ,flank pain ,leg weakness ,use of corticosteroids or use of anticoagulants. Encounter Diagnosis: Other and unspecified hyperlipidemia (272.4), Low back pain (724.2), Osteopenia (733.90), infected sebacous cyst [facility] Office Visit On: 15-Sep-2007 13:10 Encounter Reason: Follow up, Laboratory Test Results - Date: (09/01/07- on door). Note for Follow up, Laboratory Test Results: started pt for neck and back - she does twice at week in [place]- she is back to work 2 half d End: 15-Sep-2007 14:01 ays -- she is doing ok by afternnon she is tired and achey -- all holes are healed- her pain is controlled oon otc meds - shoulder is much better-- she is off the singulair and is not coughing any moreEncounter Diagnosis: Other and unspecified hyperlipidemia (272.4), SYMPTOMS INVOLVING RESPIRATORY SYSTEM AND OTHER CHEST SYMPTOMS; COUGH (786.2), Osteopenia (733.90), cspine fracture- s/p halo removal- doing well [facility] Historical Summary On: 08-Sep-2007 14:53 [facility] End: 08-Sep-2007 14:54 Office Visit On: 30-Sep-2006 17:48 Encounter Reason: Follow up, Laboratory Test Results - Date: (08/15/06- on face sheet). Note for Follow up, Laboratory Test Results: cough still there and fatigue improved- happens after taking in sugar- caffeine or meat End: 04-Sep-2007 17:38 - feels like irritation- zyrtec no help- bs elevated no hx of dm- has had a cxr, [ADDITIONAL REASON] Follow up for chronic medical issues - The patient feels well with minor complai nts (if eats certain things, gets abdominal pain, otherwise feels good) ,has good energy level and is sleeping well. Patient has been compliant with instructions. Current medication use: no side effects and compliant with dosing regimen. Patient sleeps 8 hours per night. Nutrition: balanced diet ,supplemental vitamins and low salt diet. The medical issues the patient is following up for include gastri c reflux ,high cholesterol and osteoporosis/osteopenia. blood pressure range : and weight :. Encounter Diagnosis: Cough (786.2), SYMPTOMS INVOLVING URINARY SYSTEM; DYSURIA (788.1), vit d def, Other and unspecified hyperlipidemia (272.4), Abdominal Pain,General (789.07) [facility] Historical Summary On: 05-Sep-2006 15:15 [facility] End: 05-Sep-2006 15:27 Office Visit On: 16-Aug-2006 10:53 [facility] End: 19-Aug-2006 6:20 Office Visit On: 07-Aug-2006 11:50 Encounter Diagnosis: SYMPTOMS INVOLVING URINARY SYSTEM; DYSURIA (788.1) End: 07-Aug-2006 12:09 [facility] Office Visit On: 28-Jul-2006 21:33 Encounter Diagnosis: Abdominal Pain,General (789.07) End: 30-Jul-2006 17:28 [facility] Office Visit On: 22-Jul-2006 13:49 Encounter Reason: Abdominal pain - The onset of the pain has been variable and has been occurring in an intermittent pattern for 4 years. The course has been recurrent. The pain is described as a moderate dull ache. The End: 22-Jul-2006 16:40 pain is described as being located in the entire abdomen. The pain does not radiate. The symptoms are aggravated by meals (1/2 to 1 hour after eating). The symptoms have no relieving factors. Note for Abdominal pain: getting worse over the past 4 years. Hands also feel stiff with bread. [facility], Dr. Reilly have done work up and all is negative. But pt really feels it is related to bread and food she eats. Hot shower seems to help. , [ADDITIONAL REASON] Cough - The onset of the cough has been variable. The cough is characterized as dry. The amount of sputum produced is scanty. The cough occurs all the time. 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
--- OUTSIDE RECORDS SUMMARY | 2018-10-29 16:52 | XMS RPT_ITS | Continuity of Care Document ---
:1945 Author Organization [facility] Address [facility] [address] [place] [address] Phone Care Team Providers Name Role Phone Gurdeep Law DOsue Rogers Unavailable Dr. Brett Mata MD Unavailable Dr. Doug Mcqueen Unavailable Dr. Gee Belcher DO Unavailable Dr. Wen Vides Unavailable Carli Bautista Unavailable Unavailable Naomie Dalton Unavailable Unavailable Juliana Shook Unavailable Unavailable [...] days Quantity: 90 {Capsule} Refills: 3 Ordered:25-Jun-2017 Audrey Law DO, DO, Audrey A Start : 25-Jun-2017 Active PredniSONE 10 MG Oral Tablet 3 (three) Tablet x3days, 2 vohyq1ycjf, 1 bgkr4cukp for 0 days Quantity: 18 {Tablet} Refills: 0 Ordered:06-Jun-2018 Audrey Law DO, DO, Audrey A Start : 06-Jun-2018 Active Comments:take with food Symbicort 160-4.5 MCG/ACT Inhalation Aerosol 2 (two) Puff puffs bid for 0 days Quantity: 3 {Inhalation} Refills: 0 Ordered:18-Jun-2018 Audrey Verdin DO Audrey A Start : 18-Jun-2018 Active Symbicort 160-4.5 MCG/ACT Inhalation Aerosol 2 (two) Puff puffs bid for 90 days Quantity: 3 {QS} Refills: 3 Ordered:18-Jun-2018 , Audrey Verdin DO, Audrey A Start : 18-Jun-2018 Active TOPROL XL, 50MG (Oral Tablet Extended Release 24 Hour) 1 Tablet ER 24HR QD for 0 days Quantity: 90 {Tablet_ER_24HR} Refills: 3 Ordered:24-Jan-2015 , Audrey Verdin DO, Audrey A Start : 24-Jan-2015 Active Comments:chapincito TOPROL XL, 50MG (Oral Tablet Extended Release 24 Hour) 1 Tablet ER 24HR QD for 90 days Quantity: 90 {Tablet_ER_24HR} Refills: 3 Ordered:24-Jan-2015 , Audrey Verdin DO, Audrey A Start : 24-Jan-2015 Active Comments:dispense as written VITAMIN C ER, 1000MG (Oral Tablet Extended Release) 1 daily (1000 MG) Active VITAMIN D3, 2000UNIT (Oral Tablet) 2 caps qd (2000 UNIT) Active ALIGN, 4MG (Oral Capsule) 1 Capsule daily for 10 days Quantity: 10 {Capsule} Refills: 0 Ordered:03-Jul-2011 Ashlye Gan CNP Start : 22-Jun-2011 End : [...] days Quantity: 14 {Capsule} Refills: 0 Ordered:13-Apr-2016 Carissa Jim Start : 13-Apr-2016 End : 20-Apr-2016 Inactive [...] End : 29-Jul-2014 Inactive Comments:use sparingly ERGOCALCIFEROL, 54701VRQI (Oral Capsule) 1 (one) Capsule q week [...] days Quantity: 14 {Capsule} Refills: 0 Ordered:25-Sep-2013 Jyothidangelo ASHLEYAshley Start : 25-Sep-2013 End : 02-Oct-2013 Inactive OMEGA 3, 550MG (Oral Capsule) 1 QD for 0 days Refills: 0 Ordered:27-Jul-2008 Luana Granado End : 16-Aug-2006 Inactive OSCAL 500/200 D-3, 495-980SN-DLGV (Oral Tablet) 1 QD for 0 days Refills: 0 Ordered:27-Jul-2008 Luana Granado End : 16-Aug-2006 Inactive MYWUS-JF-RBCE MAXIMUM STRENGTH, 400-500MG (PO Tab) 1 QD [...] Quantity: 12 {Misc} Refills: 1 Ordered:20-Nov-2012 Long EQUIPMENT LEAD, Marielos L Start : 17-May-2010 End : [...] : 21-Sep-2013 End : 15-Feb-2014 Discontinued CALCIUM, 767-587OF-SBIJ (Oral Tablet) 1 Daily for 0 days Refills: 0 Ordered:15-Feb-2014 Juliana Shook End : 15-Feb-2014 Discontinued CALTRATE 600+D PLUS, 418-603VN-KIGV (Oral Tablet) 1 1/2 tab qd (600-400 [...] : 23-Nov-2014 End : 13-Dec-2014 Discontinued DRISDOL, 32805MBTO (Oral Capsule) 1 Capsule Weekly for 90 [...] days Quantity: 90 {Tablet} Refills: 3 Ordered:18-Dec-2011 Juliana Shook Start : [...] days Quantity: 60 {Tablet} Refills: 0 Ordered:19-Apr-2015 Mojgan Platt LPN Start : 01-Feb-2015 End : 19-Apr-2015 Discontinued Comments:sixty METAXALONE, 800MG (Oral Tablet) 1 Tablet tid prn for 0 days Quantity: 30 {Tablet} Refills: 0 Ordered:27-May-2012 Audrey Gurdeepa A Start : 27-May-2012 End : 27-May-2012 Discontinued NEURONTIN, 300MG (Oral Capsule) 1 Capsule tid for 0 days Quantity: 90 {Capsule} Refills: 0 Ordered:06-Mar-2013 Audrey ATULrosmery Gurdeepa A Start : 06-Mar-2013 End : 06-Mar-2013 Discontinued NEXIUM, 40MG (Oral Capsule Delayed Release) [address] qd for 30 days Quantity: 30 {Capsule_DR} Refills: 3 Ordered:12-Dec-2010 Audrye ATULrosmery Audrey A Start : 12-Dec-2010 End : 12-Dec-2010 Discontinued OCUFLOX, 0.3% (Ophthalmic Solution) 1-2 Metric Drop Metric Drop q2-4hx 2 days then 1-2 drops qid x 5 days for 0 days Quantity: 1 {Bottle} Refills: 0 Ordered:13-Dec-2014 Juliana Shook Start : 18-Oct-2014 End : 13-Dec-2014 Discontinued POTASSIUM CITRATE, 10MEQ (PO Tablet) 1 tab bid for 0 days Refills: 0 Ordered:02-Feb-2009 Mast Esther MONTANO End : 18-Apr-2010 Discontinued Comments:This order discontinued per [facility]. PredniSONE 10 MG Oral Tablet 3 (three) [...] MG) End : 29-Dec-2013 Discontinued VITAMIN D, 10993FSVY (Oral Capsule) 1 (one) Capsule twice a week for 0 days Quantity: 24 {Capsule} Refills: 1 Ordered:18-Apr-2010 Mast Esther MONTANO Start : 07-Feb-2010 End : 18-Apr-2010 Discontinued Comments:This order discontinued per [facility]. 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 Past Medical History Name Dates Details [...] 2 Views Result: Comments: See Note; NOTES: [facility] Imaging Services [address] [place] [address] Calcaneus min 2 Views MR#: [id number] Acct: [id number] Name: JS MEEKS Rep #: [id number] : 1945 F 72 From: Malachi Qureshi MD PCP: Audrey Law DO Status: REG CLI Study: Calcaneus min 2 Views Date of Exam: 04/29/18 Exam# [id number] Ordering Dr: Audrey Law DO STUDY: X-RAY [...] Service support , CC: Audrey Law DO Script Coordinator: Signed 19-Nov-2017 Cardiology Visit Report Result: Comments: See Note; NOTES: [facility] [address] [place] [address]. [address] [place] [address] OFFICE VISIT Date of Service: 11/19/17 MR#: [id number] Acct: [id number] Name: JS MEEKS ep #: [id number] : 1945 Provider: Mark Leger MD Age/Sex: 72/F Location: [facility] Status: Signed [facility] Chief Complaint: Follow-up visit. Details: JS MEEKS, is a 72 F who presents to the off ice today for a follow-up visit. 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 [place] [address] Fax REHABILITATION SERVICES DISCHAR GE SUMMARY MR#: [id number] Acct: [id number] Name: JS MEEKS Rep #: [id number] : 1945 72 From: eVsna Albert PT, Cert. MDT Referring Dr.: Quirino Bueno MD Status: REG R Insurance: [facility] SELF PAY INSURANCE HP - PT D/C Summary It has been my pleasure to treat JS MEEKS under orders from Quirino Bueno, DR.RSTACH for the diagnosis of L RTC IMPINGEMENT [...] by Vesna Albert PT, Cert. MDT> 11/18/17 5140 CC: Quirino Bueno MD; Audrey Law DO JAMAR Signed 22-Oct-2017 Inital Evaluation (1) - PT Result: Comments: See Note; NOTES: [facility] [address] [place] [address]. [address] [place] [address] Fax REHABILITATION SERVICES INITIAL EVALUATION MR#: [id number] Acct: [id number] Name: JS MEEKS Rep #: [id number] : 1945 72 From: Vesna Albert PT, Cert. MDT Referring Dr.: Quirino Bueno MD Status: REG R Insurance: [facility] SELF PAY INSURANCE Patient's Visit Information JS MEEKS is a 72 year old F referred to Physical Therapy by Quirino Bueno DR.RSVALENTÍN with a diagnosis of L RTC IMPINGEMENT [...] ROM. 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 - Subjective Subjective: Work/Leisure: RETIRED. HAS 11 [...] WALKING AND USING WEIGHT [facility]INES [facility] AND THE ONLY THING SHE [...] normal. RECENT X-RAY OF LEFT SHOULDER AT [facility] - PATIENT UNSURE OF RESULTS. NO MRI [...] LUE SLOW AND CAREFULLY. 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 RIGHT UE STRENGTH WFL. [...] to be FAXED BACK to us at [phone] for Medicare purposes. Please let me know if there are questions or concerns regarding this plan of care. Physician Signature: Date: <Electronically signed by Vesna Albert PT, Cert. MDT> 10/22/17 1149 CC: Quirino Bueno MD; Audrey Law DO JAMAR Signed For Medicare only, by signing this I certify the plan of care. Physicians Signature Date 10-Oct-2017 Breast Limited Unilateral Result: Comments: See Note; NOTES: [facility] Imaging Services [address] [place] [address] Breast Limited Unilateral MR#: [id number] Acct: [id number] Name: JS MEEKS Rep #: [id number] : 1945 F 71 From: Corey Saldaañ MD PCP: Audrey Law DO Status: REG CLI Study: Breast Limited Unilateral Date of Exam: 10/10/17 Exam# [id number] Ordering Dr: Audrey Law DO STUDY: UL [...] Corey Saldaña MD at 13:47 EST Tel [phone], Service support , CC: Audrey Law DO Script Coordinator: Signed 10-Oct-2017 Breast Limited Unilateral Result: Comments: See Note; NOTES: [facility] Imaging Services [address] [place] [address] Breast Limited Unilateral MR#: [id number] Acct: [id number] Name: JS MEEKS Rep #: [id number] : 1945 F 71 From: Corey Saldaña MD PCP: Audrey Law DO Status: REG CLI Study: Breast Limited Unilateral Date of Exam: 10/10/17 Exam# [id number] Ordering Dr: Audrey Law DO STUDY: UL [...] Corey Saldaña MD at 13:47 EST Tel [phone], Service support , CC: Audrey Law DO Script Coordinator: Signed 07-Oct-2017 SCREENING MAMM (CAD), BILAT Result: Comments: See Note; NOTES: [facility] Imaging Services [address] [place] [address] SCREENING MAMM (CAD), BILAT MR#: [id number] Acct: [id number] Name: JS MEEKS Rep #: [id number] : 1945 F 71 From: Corey Saldaña MD PCP: Audrey Law DO Status: REG CLI Study: SCREENING MAMM (CAD), BILAT Date of Exam: 10/07/17 Exam# [id number] Ordering Dr: Audrey Law DO ADDEN DUM by Corey Saldaña MD on 10/09/17 at 0957 HPBI/SCREENING MAMM (CAD), BILAT 10/09/17 1004 Date cc: Audrey Law DO * Signed ADDENDUM by Corey Saldaña MD on 10/09/17 at 0957 ADDENDUM This is an addendum report for BIRADS category. BIRADS Category 0: Addit ional imaging required. Electronically Signed: Corey Saldaña MD at 9:57 EST Tel [phone], Service support , 10/09/17 0957 Date cc: De bra Fast DO * Signed MAMMOGRAPHY - BILATERAL SCREENING [...] delay biopsy of a clinically suspicious abnormality. [id number] Electronically Signed: Corey Saldaña MD at 10:32 EST Tel [phone], Service support , CC: Audrey Law DO Script Coordinator: Signed 07-Oct-2017 SCREENING MAMM (CAD), BILAT Result: Comments: See Note; NOTES: [facility] Imaging Services [address] [place] [address] SCREENING MAMM (CAD), BILAT MR#: [id number] Acct: [id number] Name: JS MEEKS Rep #: : 1945 F 71 From: Corey Saldaña MD PCP: Audrey Law DO Status: REG CLI Study: SCREENING MAMM (CAD), BILAT Date of Exam: 10/07/17 Exam# [id number] Ordering Dr: Audrey Law DO MAMMO GRAPHY [...] delay biopsy of a clinically suspicious abnormality. [id number] Electronically Signed: Corey Saldaña MD at 10:32 EST Tel [phone], Service support , CC: Audrey Law DO Script Coordinator: Signed 23-Sep-2017 TXT - Blood Flow Screening Result: Comments: See Note; NOTES: [facility] Cardiovascular Services [address] [place] [address] 09/23/17 0822 MR#: [id number] Acct: [id number] Name: JS MEEKS Rep #: [id number] : 1945 71 From: Jeet Grijalva MD Attending Dr: Audrey Law DO Status: REG REF Ordering Dr: Date: 09/23/17 [facility] Sex: F C Admitted: Reason For [...] DO Date Dictated: 09/23/17821 Date Transcribed: 09/23/172213 Script Coordinator: Signed 16-Sep-2017 Brain W/WO Contrast Result: Comments: See Note; NOTES: [facility] Imaging Services [address] [place] [address] Brain W/WO Contrast MR#: [id number] Acct: [id number] Name: JS MEEKS Rep #: [id number] : 1945 F 71 From: Gabriela Rhodes PCP: Audrey Law DO Status: REG CLI Study: Brain W/WO Contrast Date of Exam: 09/16/17 Exam# [id number] Ordering Dr: Audrey Law DO STUDY: MRI [...] Service support , CC: Audrey Law DO Script Coordinator: Signed 07-Aug-2016 Bilat Scrn Digital AND CAD Result: Comments: See Note; NOTES: [facility] Imaging Services [address] [place] [address] Verdana 4d Bilat Scrn Digital AND CAD MR#: [id number] Acct: [id number] Name: JS MEEKS Rep #: [id number] : 1945 F 70 From: Corey Saldaña MD PCP: Audrey Law DO Status: REG CLI Study: Bilat Scrn Digital AND CAD Date of Exam: 08/07/16 Exam# [id number] Ordering Dr: Audrey Law MAMMOGRAPHY - BILATERAL [...] significant change since the prior study . [facility]/Bilat Scrn Digital AND CAD IMPRESSION: Stable bilateral screening mammogram. Yearly follow-up mammogram recommended. (A) ASSESSMENT CATEGORY: BIRADS Category 2: Benign. A letter regarding these results will be sent to the patient by the facility within 30 days. Approximately 10% of breast cancers are not detected by mammography. A normal mammogram should not delay biopsy of a clinically suspicious abnormality. [id number] Electronically Signed: Corey Saldaña MD at 12:30 EST , Service support [phone], CC: Audrey Law DO Script Coordinator: Signed 07-Aug-2016 Chest PA and Lateral Result: Comments: See Note; NOTES: [facility] Imaging Services [address] [place] [address] Verdana 4d Chest PA and Lateral MR#: [id number] Acct: [id number] Name: JS MEEKS Rep # : [id number] : 1945 F 70 From: Corey Saldaña MD PCP: Audrey Law DO Status: REG CLI Study: Chest PA and Lateral Date of Exam: 08/07/16 Exam# [id number] Ordering Dr: Audrey Law DO STUDY: X [...] Corey Saldaña MD at 10:53 EST Tel [phone], Service support , CC: Audrey Law DO Script Coordinator: Signed 07-Aug-2016 DXA BONE DENS W/VERT FX ASMT Result: Comments: See Note; NOTES: [facility] Imaging Services [address] [place] [address] Verdana 4d DXA BONE DENS W/VERT FX ASMT MR#: [id number] Acct: [id number] Name: JS MEEKS Rep #: [id number] : 1945 F 70 From: Corey Saldaña MD PCP: Audrey Law DO Status: REG CLI Study: DXA BONE DENS W/VERT FX ASMT Date of Exam: 08/07/16 Exam# [id number] Ordering Dr: Jayna Law ra, DO STUDY: [...] Corey Saldaña MD at 13:51 EST Tel [phone], Service support [phone], CC: Audrey Law DO; GEE BELCHER Script Coordinator: Signed 13-Jul-2016 Stress Test Echo w/o Contrast Result: Comments: See Note; NOTES: [facility] Cardiovascular Services [address] [place] [address] Verdana 4d Stress Test Echo w/o Contrast MR#: [id number] Acct: [id number] Name: JS ETIENNE Rep #: [id number] : 1945 70 From: Mark Leger MD [...] Date Dictated: 6 36 Date Transcribed: 07/13/161434 Script Coordinator: Signed 02-May-2016 Pulmonary Function Report Comp Result: Comments: See Note; NOTES: [facility] Pulmonary Services/Neurology [address] [place] [address] Pulmonary Function Test (Comp) MR#: [id number] Acct: [id number] Name: RENITA MEEKS Rep #: [id number] : 1945 70 From: Markus Fuentes MD Referring Dr: Audrey Law DO Status: REG CLI Ordering Dr: Audrey Law DO Date: 05/01/16 Location: [facility] Sex: F C DATE OF SERVICE: 016 [...] C: Audrey Law DO T: NTS JOB: [id number] 05/02/16 0622 <Electronically signed by Markus Fuentes MD> Date Markus Fuentes MD CC: Markus Fuentes MD; Audrey Law DO Date Dictated: 05/01/1656 Date Transcribed: 05/01/16955 Script Coordinator: Signed 04-Nov-2015 Brain W/WO Contrast Result: Comments: See Note; NOTES: [facility] Imaging Services [address] [place] [address] Verdana 4d Brain W/WO Contrast MR#: [id number] Acct: [id number] Name: ARIEL MEEKS Rep #: [id number] : 1945 F 70 From: Niki Cantu MD PCP: Audrey Law DO Status: REG CLI Study: Brain W/WO Contrast Date of Exam: 11/04/15 Exam# [id number] Ordering Dr: Audrey Law DO STUDY: MRI [...] and sequela of microvascular disease. Electronically Signed: Niik Cantu MD at 12:52 EDT , Service support [phone] , CC: Audrey Law DO Script Coordinator: Signed 05-Oct-2015 Spirometry (37944) Comments: good effort curve small- Result: 05-Oct-2015 ELECTROCARDIOGRAM, COMPLETE (ECG) (82430) Result: [MEASUREMENTS ANALYSIS] Date of Test: 10/05/2015 09:16:25; Heart Rate: 67; RI Interval: 184; QRS: 92; QT Interval: 388; Corrected QT Interval (QTc): 400; P Wave Davidson: 44; QRS Wave Davidson: 15; T Wave Davidson: 48; Blood Pressure: 122/74 [ECG DIAGNOSTIC STATEMENTS] Date of Test: 10/05/2015 09:16:25; Summary: Sinus Rhythm WITHIN NORMAL LIMITS 18-Aug-2015 Chest PA and Lateral Result: Comments: See Note; NOTES: [facility] Imaging Services [address] [place] [address] Verdana 4d Chest PA and Lateral MR#: [id number] Acct: [id number] Name: Fiona MEEKS Rep #: [id number] : 1945 F 69 From: Willie Andersen PCP: Audrey Law DO Status: REG CLI Study: Chest PA and Lateral Date of Exam: 08/18/15 Exam# [id number] Ordering Dr: Rey Tyson MD STUDY: X-RAY [...] at 6:26 EST , Service sup port [phone], RAD/Chest PA and Lateral IMPRESSION: There is NO acute cardiopulmonary abnormality. Electronically Signed: Willie Andersen MD at 6:26 EST , Service support [phone], CC: Michelle Tyson MD; Audrey Law DO Script Coordinator: Signed 02-Dec-2014 Spirometry (09447) Comments: obstruction present Result: 27-Oct-2014 Bilat Scrn Digital AND CAD Result: Comments: See Note; NOTES: [facility] Imaging Services [address] [place] [address] Breast Imaging Report MR#: [id number] Acct: [id number] Name: JS MEEKS Rep #: [id number] : 1945 F 69 From: Sonu Olmstead MD PCP: Audrey Law DO Status: REG CLI Study: Bilat Scrn Digital AND CAD Date of Exam: 10/27/14 Exam# [id number] Ordering Dr: Audrey Law DO MAMMOGR APHY [...] at 11:33 EDT Tel , Service support [phone], CC: Audrey Law DO Script Coordinator: Signed 27-Oct-2014 Bilat Scrn Digital AND CAD Result: Comments: See Note; NOTES: [facility] Imaging Services [address] [place] [address] Breast Imaging Report MR#: [id number] Acct: [id number] Name: JS MEEKS Rep #: [id number] : 1945 F 69 From: Sonu Olmstead MD PCP: Audrey Law DO Status: REG CLI Study: Bilat Scrn Digital AND CAD Date of Exam: 10/27/14 Exam# [id number] Ordering Dr: Audrey Law by Corey Saldaña MD on 11/01/14 at 1353 ADDENDUM This is an addendum report. Prior out side examination was made available for review. Comparison is made with prior examination dated November 06, 2013. There is essentially no change since prior study. Electronically Signed: Corey akbar MD at 13:53 EDT Tel [phone], Service support [phone], 11/01/14 1353 Date cc: Audrey Fast DO [...] at 11:33 EDT Tel , Service support [phone], CC: Audrey Law DO Script Coordinator: Signed 03-Aug-2014 Vert Fx Asess/Lat Bone Den(H) Result: Comments: See Note; NOTES: [facility] Imaging Services [address] [place] [address] Bone Density Report MR#: [id number] Acct: [id number] Name: JS MEEKS Rep #: [id number] : 1945 F 68 From: Corey Saldaña MD PCP: Audrey Law DO Status: REG CLI Study: Vert Fx Asess/Lat Bone Den(H) Date of Exam: 08/03/14 Exam# [id number] Ordering Dr: Audrey Law DO STUDY: DUAL [...] Corey Saldaña MD at 13:11 EST Tel [phone], Service support [phone], CC: Audrey Law DO Script Coordinator: Signed 03-Aug-2014 Dexa Bone Density Study (HP) Result: Comments: See Note; NOTES: [facility] Imaging Services [address] [place] [address] Bone Density Report MR#: [id number] Acct: [id number] Name: JS MEEKS Rep #: [id number] : 1945 F 68 From: Corey Saldaña MD PCP: Audrey Law DO Status: REG CLI Study: Dexa Bone Density Study (HP) Date of Exam: 08/03/14 Exam# [id number] Ordering Dr: Audrey Law DO STUDY: DUAL [...] 3. [employer] http://www.nof.org Electronically Signed: Tio Saldaña MD at 14:42 EST Tel [phone], Service support [phone], CC: Audrey Law DO Script Coordinator: Signed 29-Jul-2014 Chest PA and Lateral Result: Comments: See Note; NOTES: [facility] Imaging Services [address] [place] [address] Radiology Report MR#: [id number] Acct: [id number] Name: JS MEEKS Rep #: [id number] : 1945 F 68 From: Brad Lea MD PCP: Audrey Law DO Status: REG CLI Study: Chest PA and Lateral Date of Exam: 07/29/14 Exam# [id number] Ordering Dr: Michelle Tyson MD STUDY: X-RA [...] MD at 7:26 EST , Service support [phone], CC: Michelle Tyson MD; Audrey Law DO Script Coordinator: Signed 29-Jul-2014 Spirometry (15155) Comments: see scanned document of test done to see results reviewed today with patient Result: 26-Mar-2014 Brain W/WO Contrast Result: Comments: See Note; NOTES: [facility] Imaging Services [address] [place] [address] MRI Report MR#: [id number] Acct: [id number] Name: JS MEEKS Rep #: [id number] DO B: 1945 F 68 From: Joshua Salcido MD PCP: Audrey Law DO Status: REG CLI Study: Brain W/WO Contrast Date of Exam: 03/26/14 Exam# [id number] Ordering Dr: Audrey Law DO STUDY: MRI [...] MD at 15:20 EDT , Service support [phone], CC: Audrey Law DO Script Coordinator: Signed 19-Jan-2014 Chest WITH Contrast Result: Comments: See Note; NOTES: [facility] Imaging Services [address] [place] [address] CAT Scan Report MR#: [id number] Acct: [id number] Name: JS MEEKS Rep #: [id number] : 1945 F 68 From: Corey Saldaña MD PCP: Audrey Law DO Status: REG CLI Study: Chest WITH Contrast Date of Exam: 01/19/14 Exam# [id number] Ordering Dr: Audrey Law DO STUDY: CT [...] Corey Saldaña MD at 10:20 EDT Tel [phone], Service support [phone], CC: Audrey Law DO Script Coordinator: Signed 29-Dec-2013 Cerv Spine 4 or 5 Views Result: Comments: See Note; NOTES: [facility] Imaging Services [address] [place] [address] Radiology Report MR#: [id number] Acct: [id number] Name: JS MEEKS Rep #: [id number] : 1945 F 68 From: Cristino Salas MD PCP: Audrey Law DO Status: REG CLI Study: Cerv Spine 4 or 5 Views Date of Exam: 12/29/13 Exam# [id number] Ordering Dr: Audrey Law DO STUDY: X-RA [...] at 3:02 EDT Tel , Service support [phone], CC: Audrey Law DO Script Coordinator: Signed 22-Dec-2013 Abdomen Single View Result: Comments: See Note; NOTES: [facility] Imaging Services [address] [place] [address] Radiology Report MR#: [id number] Acct: [id number] Name: JS MEEKS Rep #: [id number] : 1945 F 68 From: Willie Andersen PCP: Audrey Law DO Status: REG CLI Study: Abdomen Single View Date of Exam: 12/22/13 Exam# [id number] Ordering Dr: Justo Bowles MD STUDY: X-RAY [...] at 2:50 EDT Tel , Service support [phone], CC: Audrey Law DO; Justo Bowles MD Script Coordinator: Signed 19-Dec-2013 Operative Report Result: Comments: See Note; NOTES: [facility] Medical Records Department [address] [facility] [place] [address] Operative Report MR#: [id number] Acct: [id number] Name: JS MEEKS Rep #: [id number] : 1945 68 From: Justo Bowles MD PCP: Audrey Law DO [facility]: [facility] [facility] DATE OF SERVICE: 12/18/2013 DATE OF SERVICE: December 18, 2013. PREOPERATIVE DIAGNOSIS: Left ureteral ca lculi, status post stent placement. POSTOPERATIVE DIAGNOSIS: Left ureteral calculi, status post stent placement. PROCEDURES PERFORMED: Left ureteroscopy, laser lithotripsy of stone and left stent placement. ANESTHESIOLOGIST: Dr. Leiva. SURGEON: Justo Bowles M.D. SPECIMEN REMOVED: None. DRAINS: A 6-Tajik x 24 cm stent on the left [...] we nt into the bladder with a 21-Tajik rigid cystourethroscope, grabbed the existing stent from [...] for easy extraction. Justo Bowles MD T: [facility] JOB: [id number] 12/19/13 0743 <Electronically signed by Justo Bowles MD> Date Justo Bowles MD CC: Audrey Law DO; Justo Bowles MD Date Dictated: 12/18/13 1430 Date Transcribed: 12/18/13 143 Script Coordinator: Signed 18-Dec-2013 Operative Report Result: Comments: See Note; NOTES: [facility] Medical Records Department [address] [place] [address] Operative Report 12/18/13 1428 MR#: [id number] Acct: [id number] Name: JS MEEKS Rep #: [id number] : 1945 68 From: Justo Bowles MD PCP: Audrey Law DO Status: REG SDC Y Location: [place] [address] Report of Operation Date of Procedure: 12/18/13 [...] Discharge Instruction Result: Comments: See Note; NOTES: [facility] Medical Records Department [address] [place] [address] Discharge Instruction 12/18/13 1343 MR#: [id number] Acct: [id number] Name: JS MEEKS Rep #: [id number] : 1945 68 From: Justo Bowles MD PCP: Audrey Law DO Status: [place] [facility] [place] Diet: No Restrictions Discharge Activity: Return [...] without Cont Result: Comments: See Note; NOTES: [facility] Imaging Services [address] [place] [address] CAT Scan Report MR#: [id number] Acct: [id number] Name: JS MEEKS Rep #: [id number] : 1945 F 68 From: Corey Saldaña MD PCP: Audrey Law DO Status: REG CLI Study: Abdomen/Pelvis without Cont Date of Exam: 12/04/13 Exam# [id number] Ordering Dr: Brett Mata MD: CT ABDOMEN [...] Corey Saldaña MD at 11:50 EDT Tel [phone], Service support [phone], CC: Audrey Law DO; Brett Mata MD Script Coordinator: Signed Family History Unknown Family Member Name [...] kg/m2 Body Surface Area Calculated 1.61 m2 18-Lgm-958109:44 Temperature 98.3 f Pulse 66 /min Comments: [...] kg/m2 Body Surface Area Calculated 1.61 m2 07-Twk-860664:10 Temperature 98.1 f Comments: Method: Oral Pulse [...] kg/m2 Body Surface Area Calculated 1.61 m2 60-Uex-660063:46 Pulse 64 /min Comments: Pattern: Regular Respiration [...] Height 0 in Head Circumference 0.00 cm 14-Tix-765626:50 Temperature 97.8 f Comments: Method: Oral Pulse [...] Comments: DR LAW ORDERED PTHIN/YUMI BELCHER ORDERED CMP/PTHIN/[facility]DW[facility] [address]obtx[address] [place], [place], [address] GAP 7 (Normal) Range: 5-15 CO2 31.0 [...] Comments: Please note revised GLUCOSE reference range nwozigwfo60/02/2018. 59-Qol-49621:07 PTHIN 78.1 pg/mL (Normal) Comments: DR LAW ORDERED PTHIN/CADR BRANDY ORDERED CMP/PTHIN/[facility]DL[facility] [address] [place], [address] Range: 18.4-80.1 :07 Vitamin D,25 Hydroxy Comments: DR LAW ORDERED PTHIN/YUMI BELCHER ORDERED CMP/PTHIN/VITDLake [facility] [address] [place], [place], [address] Vitamin D 25-OH 68.3 ng/mL (Normal) Range: 29.95-100.01 Comments: Vitamin D 25(OH) Status Range Deficiency <20 ng/mL (50nmol/L) Insuffciency 20 - 30 ng/mL (50 - 75 nmol/L) Sufficiency 30 - 100 ng/mL (75 - 250 nmol/L) Toxicity >100 ng/mL (>250 nmol/L) 56-Kzh-68767:30 Culture, Urine Comments: [facility] [address] [place], [address] CUUR See Note (Normal) Comments: Urine CultureORGANISM 1: Mixed Gram Positive OrganismsColony Count 1000-10,000MIX CULTURE Mixed contaminants. Submit a new specimen if indicated. 4-Wht-727815:50 HGB A1C (73228) Comments: PATIENT WAS FASTINGPERFORMED BY: [facility] Kxztfh8[address] [facility] [id number] Hemoglobin A1c 5.6 % (Normal) Range: 4.8-5.6 Comments: . Prediabetes: 5.7 - 6.4 Diabetes: >6.4 Glycemic control for adults with diabetes: <7.0 0-Vtu-472080:50 VITAMIN B-12 (CYANOCOBALAMIN) Comments: PATIENT WAS FASTINGPERFORMED BY: [facility] [id number] (81584) Vitamin B12 626 pg/mL (Normal) Range: 232-1245 0-Ydi-935025:50 METABOLIC PANEL, COMPREHENSIVE Comments: PATIENT WAS FASTINGPERFORMED BY: Kovio[address] [facility] [id number] (83523) ALT (SGPT) 22 [iU]/L (Normal) Range: 0-32 [...] 8-27 Glucose 96 mg/dL (Normal) Range: 65-99 8-Fjj-364065:50 Vitamin D Hydroxy (44268) Comments: PATIENT WAS FASTINGPERFORMED BY: [facility] [id number] Vitamin D, 25-Hydroxy 51.3 ng/mL (Normal) Range: 30.0-100.0 Comments: Vitamin D deficiency has been defined by the [place] of[place]icine and an Endocrine Society practice guideline as alevel of serum 25-OH vitamin D less than 20 ng/mL (1,2).The Endocrine Society went on to further define vitamin Dinsufficiency as a level between 21 and 29 ng/mL (2).1. IOM ([place] of Medicine). 2010. Dietary reference intakes for calcium and D. [place]: The National AcademThe Highway Girl Press.2. Robinson MF, Keila AGUERO, Bruce ROBLES, et al. Evaluation, treatment, and prevention of vitamin D deficiency: an Endocrine Society clinical practice guideline. JCEM. 2010; 96(7):1911-30. 6-Yjf-342127:50 LIPID PANEL (46636) Comments: PATIENT WAS FASTINGPERFORMED BY: LabCoSaint Francis Medical CenterNpptkp0087 [facility] [id number]; review on 04/29 LDL/HDL Ratio 2.6 {ratio} [...] Range: 100-199 18-Nov-20179:16 Comprehensive Metabolic Profil Comments: [facility] [address] [place], [place], [phone] GAP 6 (Normal) Range: 5-15 CO2 31.0 mmol/L (Normal) Range: 21.0-32.0 CL 104 mmol/L (Normal) Range: 98-107 K 3.7 mmol/L (Normal) Range: 3.5-5.1 NA 141 mmol/L (Normal) Range: 136-145 T BILI 0.60 mg/dL (Normal) Range: 0.20-1.00 ALT 29 U/L (Normal) Range: 13-56 Comments: Please note revised ALT reference range fluvulnnj40/28/2018. ALK P 59 U/L (Normal) Range: 45-117 [...] Comments: Please note revised GLUCOSE reference range kwmacwdmc28/02/2018. 18-Nov-20179:16 PTHIN 75.3 pg/mL (Normal) Comments: [facility] [address] [place], [place], [address] Range: 18.4-80.1 Comments: Please Note: PTH INTACT METHOD AND REFERENCE RANGE CHANGEEffective 07/31/2017. :16 Vitamin D,25 Hydroxy Comments: [facility] [address] [place], [place], [address] Vitamin D 25-OH 71.7 ng/mL (Normal) Range: 29.95-100.01 Comments: Vitamin D 25(OH) Status Range Deficiency <20 ng/mL (50nmol/L) Insuffciency 20 - 30 ng/mL (50 - 75 nmol/L) Sufficiency 30 - 100 ng/mL (75 - 250 nmol/L) Toxicity >100 ng/mL (>250 nmol/L) :52 HGB A1C (59740) Comments: PATIENT WAS FASTINGPERFORMED BY: [facility] [facility] [id number] Hemoglobin A1c 5.5 % (Normal) Range: 4.8-5.6 Comments: . Pre-diabetes: 5.7 - 6.4 Diabetes: >6.4 Glycemic control for adults with diabetes: <7.0 :52 CBC W/AUTO DIFF WBC (38149) Comments: PATIENT WAS FASTINGPERFORMED BY: [facility] [facility] [id number] Immature Grans (Abs) 0.0 {x10E3/uL} (Normal) Range: [...] PANEL, COMPREHENSIVE Comments: PATIENT WAS FASTINGPERFORMED BY: WOMNSaint Francis Medical CenterInhyya0182 [facility] [id number] (39995) ALT (SGPT) 20 [iU]/L (Normal) Range: 0-32 [...] mg/dL (Abnormal) Range: 65-99 :52 LIPID PANEL (68332) Comments: PATIENT WAS FASTINGPERFORMED BY: WOMNSaint Francis Medical CenterKnexxb7056 [facility] [id number]; review at upcoming appt LDL/HDL Ratio 2.3 [...] Cholesterol, Total 177 mg/dL (Normal) Range: 100-199 57-Vqn-61527:00 24 HR Urine Creatinine Comments: [facility] [address] [place], [place], [address] UR.CREAT/24hr 0.98 {g/24_HR} (Normal) Range: 0.70-1.90 URINE CREAT 67.40 mg/dL (Normal) UR TOTAL VOLUME 1.40 L (Normal) UR COLLECT TIME 24.0 {HOURS} (Normal) 31-Qxk-52994:00 Miscellaneous Lab Procedure Comments: Test(s) Ordered: STONE RISK [id number] 24HR URINEWUniversity Hospitals Parma [facility] [address]af[address] [place], [place], [phone] [facility] [place] Comments: TEST RESULT FLAG UNITS REF INTERVALKidney [...] pH, 24 Hr Urine 6.3 Ammonia, Urine 56388 ug/dL Not Estab. Ammonia, Urine 22 No t Estab. Saturation Ratios Calcium Oxalate 5.13 ratio 0.00 - 6.00 Brushite 1.95 ratio 0.00 - 3.00 Monosodium Urate 1.29 ratio 0.00 - 4.00 U calixto Acid 0.49 ratio 0.00 - 1.20 Struvite 0.04 ratio 0.00 - 1.00 Please note: Graphic analysis of results will follow via computer, mail, or vice president safety del hayes. TESTING PERFORMED AT [facility]. ORIGINAL REPORT ON FILE IN LAB CONTAINS ADDITIONAL TEST SITE INFORMATION. AMENDED REPORT 10/04/1702 [facility] [place] previously reported as: TEST RESULT [...] 24 Hr Urine 6.3 Ammo layton, Urine 18234 ug/dL Not Estab. TESTING PERFORMED AT [facility]. ORIGINAL REPORT ON FILE IN LAB CONTAINS ADDITIONAL TEST SITE INFORMATION. 07-Zcs-45396:45 Comprehensive Metabolic Profil Comments: [facility] [address] [place], [address] GAP 6 (Normal) Range: 5-15 CO2 32.0 mmol/L (Normal) Range: 21.0-32.0 CL 101 mmol/L (Normal) Range: 98-107 K 3.8 mmol/L (Normal) Range: 3.5-5.1 NA 139 mmol/L (Normal) Range: 136-145 T BILI 0.60 mg/dL (Normal) Range: 0.20-1.00 ALT 26 U/L (Normal) Range: 13-56 Comments: Please note revised ALT reference range /28/2018. ALK P 55 U/L (Normal) Range: 45-117 [...] Comments: Please note revised GLUCOSE reference range qgznseqlr72/02/2018. 78-Qjf-78822:45 Magnesium Comments: [facility] [address] [place], [phone] MG 2.4 mg/dL (Normal) Range: 1.6-2.6 Comments: Please note revised Magnesium reference range sepxjvbai40/15/2018. 16-Oww-98812:45 Vitamin D,25 Hydroxy Comments: [facility] [address] [place], [place], [address] Vitamin D 25-OH 46.2 ng/mL (Normal) Range: 19.95-100.01 Comments: Vitamin D 25(OH) Status Range Deficiency <20 ng/mL (50nmol/L) Insuffciency 20 - 30 ng/mL (50 - 75 nmol/L) Sufficiency 30 - 100 ng/mL (75 - 250 nmol/L) Toxicity >100 ng/mL (>250 nmol/L) 2-Cub-582571:36 VITAMIN B-12 (CYANOCOBALAMIN) Comments: PATIENT NOT FASTINGPERFORMED BY: [facility] [facility] [id number] (61148) Vitamin B12 626 pg/mL (Normal) Range: 232-1245 14-Pbs-137594:14 CBC W/AUTO DIFF WBC (95232) Comments: PATIENT NOT FASTINGPERFORMED BY: [facility] [facility] [id number] Immature Grans (Abs) 0.0 {x10E3/uL} (Normal) Range: [...] 3.77-5.28 WBC 5.2 {x10E3/uL} (Normal) Range: 3.4-10.8 68-Xig-201117:14 METABOLIC PANEL, COMPREHENSIVE Comments: PATIENT NOT FASTINGPERFORMED BY: [facility] Ojtckm0196 [facility] [id number]; review 09/10 (35605) ALT (SGPT) 19 [iU]/L (Normal) Range: 0-32 [...] Glucose, Serum 107 mg/dL (Abnormal) Range: 65-99 4-Jcz-095730:04 Comprehensive Metabolic Profil Comments: [facility] [address] [place], [place], [address] GAP 5 (Normal) Range: 5-15 CO2 28.0 [...] 7-18 GLU 85 mg/dL (Normal) Range: 70-110 3-Pbt-405523:04 Magnesium Comments: [facility] [address] [place], [address] MG 2.4 mg/dL (Normal) Range: 1.8-2.4 4-Ijx-713379:04 PTH,INTACT Comments: [facility] [address] [place], [place], [address] PTH,Intact 57 pg/mL (Normal) Range: 14-72 4-Flu-768453:04 Vitamin D,25 Hydroxy Comments: [facility] [address] [place], [place], [address] Vitamin D 25-OH 62.0 ng/mL (Normal) Comments: Vitamin D 25(OH) Status Range Deficiency <20 ng/mL (50nmol/L) Insuffciency 20 - 30 ng/mL (50 - 75 nmol/L) Sufficiency 30 - 100 ng/mL (75 - 250 nmol/L) Toxicity >100 ng/mL (>250 nmol/L) 09-Cvt-561222:07 CBC W/AUTO DIFF WBC Comments: PATIENT WAS FASTINGPERFORMED BY: WOMN[address] [id number] BY: ROMEO [facility] Ioinfz9639 [facility] [id number] (49600) Immature Grans (Abs) 0.0 {x10E3/uL} (Normal) Range: [...] 3.77-5.28 WBC 5.2 {x10E3/uL} (Normal) Range: 3.4-10.8 12-Laj-603219:07 METABOLIC PANEL, Comments: PATIENT WAS FASTINGPERFORMED BY: WOMN[address] [id number] BY: LabCoSaint Francis Medical CenterMhwqzv1838 [facility] [id number] COMPREHENSIVE (46896) ALT (SGPT) 21 [iU]/L (Normal) Range: 0-32 [...] Glucose, Serum 94 mg/dL (Normal) Range: 65-99 82-Xkd-630209:07 LIPOPROTEIN, BLD, BY NMR Comments: PATIENT WAS FASTINGPERFORMED BY: LabCo[address] [id number] BY: LabPlazesSaint Francis Medical CenterBahvci4444 [facility] [id number] (55230) LP-IR Score 59 (Abnormal) Comments: INSULIN RESISTANCE MARKER <--Insulin Sensitive Insulin Resistant--> Percentile in Reference PopulationInsulin Resistance ScoreLP-IR Score Low 25th 50th 75th High <27 27 45 63 >63LP-IR Score is inaccurate if patient is non-fasting. .The LP-IR score is a laboratory developed i [facility] that has beenassociated with insulin resistance and [...] 1600 - 2000 Very High > 2000 72-Pkm-177154:07 Vitamin D Hydroxy Comments: PATIENT WAS FASTINGPERFORMED BY: BeDo [address] [id number] BY: WOMN Mfaldd8070 [facility] [id number] (56410) Vitamin D, 25-Hydroxy 75.1 ng/mL (Normal) Range: 30.0-100.0 Comments: Vitamin D deficiency has been defined by the [place] ofUc Healthcine and an Endocrine Society practice guideline as alevel of serum 25-OH vitamin D less than 20 ng/mL (1,2).The Endocrine Society went on to further define vitamin Dinsufficiency as a level between 21 and 29 ng/mL (2).1. IOM ([place] of [employer]). 2010. Dietary reference intakes for calcium and D. [place]: The National Academies Press.2. Robinson MF, Keila AGUERO, Bruce ROBLES, et al. Evaluation, treatment, and prevention of vitamin D deficiency: an Endocrine Society clinical practice guideline. JCEM. 2010; 96(7):1911-30. 04-Bmq-335820:07 HGB A1C (98948) Comments: PATIENT WAS FASTINGPERFORMED BY: [facility] [address] [id number] BY: Kovio[address] [facility] [id number] Hemoglobin A1c 5.6 % (Normal) Range: 4.8-5.6 Comments: . Pre-diabetes: 5.7 - 6.4 Diabetes: >6.4 Glycemic control for adults with diabetes: <7.0 7-Bmj-404012:30 Rapid Flu (72133 x 2) Influenza A Ag positive A (Normal) 91-Cjm-54386:49 MICROALBUMIN: CREATININE Comments: PATIENT WAS FASTINGPERFORMED BY: [facility] [address] [id number] BY: [employer] Euofwn0[address] [facility] [id number] RATIO (14258) AND (69615) Microalb/Creat Ratio 9.5 {mg/g_creat} (Normal) Range: 0.0-30.0 Microalbumin, Urine 18.9 ug/mL (Normal) Creatinine, Urine 200.0 mg/dL (Normal) :49 HGB A1C (86485) Comments: PATIENT WAS FASTINGPERFORMED BY: [facility]CoBr[place] [address] [facility] [id number] BY: LabAscension [facility] Hospital6[address] [facility] [id number] Hemoglobin A1c 5.8 % (Abnormal) Range: 4.8-5.6 Comments: . Pre-diabetes: 5.7 - 6.4 Diabetes: >6.4 Glycemic control for adults with diabetes: <7.0 :49 METABOLIC PANEL, Comments: PATIENT WAS FASTINGPERFORMED BY: [facility]Co[facility] [address] [facility] [id number] BY: LabCoSaint Francis Medical CenterDxnhkc8771 [facility] [id number] COMPREHENSIVE (22530) ALT (SGPT) 13 [iU]/L (Normal) Range: 0-32 [...] Glucose, Serum 91 mg/dL (Normal) Range: 65-99 04-Yec-31677:49 LIPOPROTEIN, BLD, BY NMR Comments: PATIENT WAS FASTINGPERFORMED BY: BN [facility] Fhtmshmlpt0894 [facility] [id number] BY: CB [facility] Rxwwtw0662 [facility] [id number]; fu 11-28 Dr. Law (14915) LP-IR Score 36 (Normal) Comments: INSULIN RESISTANCE MARKER <--Insulin Sensitive Insulin Resistant--> Percentile in Reference PopulationInsulin Resistance ScoreLP-IR Score Low 25th 50th 75th High <27 27 45 63 >63LP-IR Score is inaccurate if patient is non-fasting. .The LP-IR score is a laboratory developed i [facility] that has beenassociated with insulin resistance and [...] were developed and their performance characteristicsdetermined by [employer]. These assays have not been cleared by [...] 1600 - 2000 Very High > 2000 81-Xev-549995:00 Comprehensive Metabolic Profil Comments: [facility] [address] [place], [address] GAP 4 (Abnormal) Range: 5-15 CO2 30.0 [...] 7-18 GLU 80 mg/dL (Normal) Range: 70-110 82-Hhd-700421:00 Magnesium Comments: [facility] [address] [place], [place], [address] MG 2.2 mg/dL (Normal) Range: 1.8-2.4 41-Wai-473697:00 PTH,INTACT Comments: [facility] [address] [place], [place], [address] PTH,Intact 39 pg/mL (Normal) Range: 14-72 86-Vly-844869:00 Vitamin D,25 Hydroxy Comments: [facility] [address] [place], [place], [address] Vitamin D 25-OH 44.7 ng/mL (Normal) Comments: Vitamin D 25(OH) Status Range Deficiency <20 ng/mL (50nmol/L) Insuffciency 20 - 30 ng/mL (50 - 75 nmol/L) Sufficiency 30 - 100 ng/mL (75 - 250 nmol/L) Toxicity >100 ng/mL (>250 nmol/L) :23 HgA1C , Office (27185) HgA1C , Office 5.3 % (Normal) Range: 4.6 - 7.1 :42 CBC W/Diff, Automated Comments: [facility] [address] [place], [address] Absolute Lymph 1.85 {X10_3/ul} (Normal) Range: 0.83-4.51 [...] 4.2-5.4 WBC 5.2 K/mm3 (Normal) Range: 4.4-11.0 14-Nle-24358:42 Comprehensive Metabolic Profil Comments: [facility] [address] [place], [address] ; non-emergent till apt GAP [...] (Normal) Range: 70-110 :42 Lipid Profile Comments: [facility] [address]cc[address] [place], [address] VLDL 30 mg/dL (Normal) Range: 5-40 LDL [...] High Risk :42 Microalb:Creat Ratio,Random UR Comments: [facility] [address] [place], [address] MALB:CREAT 7.2 {mg/g_CRE} (Normal) MICROALBUMIN,UR 12.0 mg/L (Normal) UR CREAT 166.00 mg/dL (Normal) :42 Vitamin B12 726 pg/mL (Normal) Comments: [facility] [address] [place], [address] ; will review on 05/08 appt Range: 211-911 :42 Vitamin D,25 Hydroxy Comments: [facility] [address] [place], [address] Vitamin D 25-OH 56.6 ng/mL (Normal) Comments: Vitamin D 25(OH) Status Range Deficiency <20 ng/mL (50nmol/L) Insuffciency 20 - 30 ng/mL (50 - 75 nmol/L) Sufficiency 30 - 100 ng/mL (75 - 250 nmol/L) Toxicity >100 ng/mL (>250 nmol/L) :46 Culture, Urine Comments: [facility] [address] [place], [address] CUUR See Note (Normal) Comments: Urine CultureORGANISM [...] $ <=20 S(NF) indicates non-formulary drug at [facility]. Approval by Infectious Disease Specialist required before non-formulary drugs may be ordered and/or dispensed. :46 Urinalysis, Routine (Dipstick) Comments: How was Urine Obtained? CLEAN [facility] [address] [place], [place], [address] LEUK ESTERASE 500 /ul (Abnormal) OCCULT BLOOD-UR 25 /ul (Abnormal) NITRITE UR Negative (Normal) UROBILI Normal mg/dL (Normal) PROT DIPSTX 30 mg/dL (Abnormal) pH UR 6.0 (Normal) Range: 5.0 - 8.0 SP.GR. DIPSTX 1.025 (Normal) Range: 1.002-1.030 KETONE UR Negative mg/dL (Normal) BILIRUBIN URINE Negative mg/dL (Normal) GLUCOSE, UR Normal mg/dL (Normal) CLARITY Sl. Cloudy (Normal) COLOR Yellow (Normal) 16-Oyl-494095:34 PTH,INTACT Comments: [facility] [address] [place], [place], [address] PTH,Intact 64 pg/mL (Normal) Range: 14-72 06-Lny-581933:09 CBC W/Diff, Automated Comments: [facility] [address] [place], [place], [address] Absolute Lymph 1.36 {X10_3/ul} (Normal) Range: 0.83-4.51 [...] 4.2-5.4 WBC 5.2 K/mm3 (Normal) Range: 4.4-11.0 57-Hmt-435556:09 Comprehensive Metabolic Profil Comments: [facility] [address] [place], [place], [address] GAP 2 (Abnormal) Range: 5-15 CO2 31.0 [...] 7-18 GLU 99 mg/dL (Normal) Range: 70-110 59-Xxl-310128:09 Hemoglobin A1c Comments: [facility] [address] [place], [address] HGB A1C 5.4 % (Normal) Range: 4.2-6.3 68-Qrw-911237:09 Lipid Profile Comments: [facility] [address] [place], [address] VLDL 29 mg/dL (Normal) Range: 5-40 LDL [...] 200-240 mg/dL Borderline >240 mg/dL High Risk 37-Rmh-867692:09 Microalb:Creat Ratio,Random UR Comments: [facility] [address] [place], [address] MALB:CREAT 13.7 {mg/g_CRE} (Normal) MICROALBUMIN,UR 19.5 mg/L (Normal) UR CREAT 142.00 mg/dL (Normal) 94-Lee-121730:09 Vitamin B12 543 pg/mL (Normal) Comments: [facility] [address] [place], [address] Range: 211-911 97-Acp-433538:09 Vitamin D,25 Hydroxy Comments: [facility] [address] [place], [address] Vitamin D 25-OH 58.6 ng/mL (Normal) Comments: Vitamin D 25(OH) Status Range Deficiency <20 ng/mL (50nmol/L) Insuffciency 20 - 30 ng/mL (50 - 75 nmol/L) Sufficiency 30 - 100 ng/mL (75 - 250 nmol/L) Toxicity >100 ng/mL (>250 nmol/L) 16-Ijj-550318:30 Comprehensive Metabolic Profil Comments: [facility] [address] [place], [id number] ; Ordered by another doctor GAP 6 [...] 7-18 GLU 93 mg/dL (Normal) Range: 70-110 25-Djj-753209:30 PTH,INTACT Comments: [facility] [address] [place], [address] PTH,Intact 70 pg/mL (Normal) Range: 14-72 15-Wfk-455398:30 Vitamin D,25 Hydroxy Comments: [facility] [address]zolwo[address] [place], [place], [address] Vitamin D 25-OH 52.0 ng/mL (Normal) Comments: Vitamin D 25(OH) Status Range Deficiency <20 ng/mL (50nmol/L) Insuffciency 20 - 30 ng/mL (50 - 75 nmol/L) Sufficiency 30 - 100 ng/mL (75 - 250 nmol/L) Toxicity >100 ng/mL (>250 nmol/L) 79-Ncu-573741:23 URINE LOW CULTURE-RUDDY COL Comments: PATIENT NOT FASTINGPERFORMED BY: [facility] Ibqeoc58[address] [facility] [id number] Information: SRC:UR [id number] COUNT (78514) Result 1 NG36 (Normal) Comments: No growth in 36 - 48 hours. Urine Culture,Comprehensive Final report (Normal) 55-Wqq-70715:56 Urinalysis, Office (87119) UA - LEUKOCYTE ESTERASE Negative (Normal) UA - NITRITE Negative (Normal) URINE UROBILINGN RUDDY TIMED Normal mg/dL (Normal) UA - PROTEIN Negative mg/dL (Normal) UA - PH 7 (Normal) UA - BLOOD Negative (Normal) UA - SPECIFIC GRAVITY 1.030 (Abnormal) UA - KETONES Negative mg/dL (Normal) UA - BILIRUBIN Negative (Normal) UA - GLUCOSE Negative (Normal) 08-Hhg-93315:29 HgA1C , Office (10168) HgA1C , Office 5.7 % (Normal) Range: 4.6 - 7.1 2-Lpy-658882:11 Comprehensive Metabolic Profil Comments: [facility] [address]kscfv[address] [place], [place], [address] ; apt. 10-16-15 GAP 5 (Normal) Range: [...] 7-18 GLU 80 mg/dL (Normal) Range: 70-110 2-Twq-468245:11 Culture, Urine Comments: [facility] Kxwzavbdxn[address] [facility] [place], [place], [address] CUUR See Note (Normal) Comments: Urine CultureCulture exhibits no growth. 9-Hpd-459632:11 Lipid Profile Comments: [facility] [address] [place], [place], [address] VLDL 27 mg/dL (Normal) Range: 5-40 LDL [...] 200-240 mg/dL Borderline >240 mg/dL High Risk 7-Ktn-912195:11 Vitamin B12 545 pg/mL (Normal) Comments: [facility] [address] [place], [address] Range: 211-911 Comments: ADDENDA: normal and has apt next week 41-Jde-652787:00 Comprehensive Metabolic Profil Comments: Test performed at:[facility] [address] [place] [address] ; handled by weytesha GAP 3 (Abnormal) Range: 5-15 CO2 30.0 [...] 7-18 GLU 91 mg/dL (Normal) Range: 70-110 83-Jky-490730:00 PTH,INTACT Comments: Test performed at:[facility] X[address] [place] [address] PTH,Intact 87 pg/mL (Abnormal) Range: 14-72 84-Ngr-354857:00 Thyroid Stim Hormone (TSH) Comments: Test performed at:[facility] [address] [place] 366461 TSH 0.57 {uIU/mL} (Normal) Range: 0.358-3.74 44-Bna-118974:00 Vitamin D,25 Hydroxy Comments: Test performed at:[facility] [address] [place] [address] Vitamin D 25-OH 38.5 ng/mL (Normal) Comments: Vitamin D 25(OH) Status Range Deficiency <20 ng/mL (50nmol/L) Insuffciency 20 - 30 ng/mL (50 - 75 nmol/L) Sufficiency 30 - 100 ng/mL (75 - 250 nmol/L) Toxicity >100 ng/mL (>250 nmol/L) 4-Xba-360356:51 URINE LOW CULTURE-RUDDY COL Comments: PATIENT NOT FASTINGPERFORMED BY: [facility] Bsyijz9[address] [facility] [id number] Information: SRC:URC [id number]; susept. to cipro and was treated COUNT ([id number]) Antimicrobial MIHEAD (Normal) Comments: S = Susceptible; [...] mL (Abnormal) Urine Final report Culture,Comprehensive (Abnormal) 1-Zmd-139097:15 Urinalysis, Office (39161) UA - LEUKOCYTE ESTERASE Moderate (Normal) UA [...] (Normal) :18 Immunofixation Urine Comments: Test performed at:[facility] [address] [place] [address] GEMMA Urine Comment (Normal) Comments: No monoclonality detected.Performed at: [facility] Lab[address] [id number] Director: Himanshu Leung PhD, Phone: [phone] 20-Myo-59755:18 PTH,INTACT Comments: Test performed at:[facility] [address] [place] [address] PTH,Intact 65 pg/mL (Normal) Range: 14-72 :18 Vitamin D,25 Hydroxy Comments: Test performed at:[facility] Tkdbiszeeq8546 [facility] [place] [address] Vitamin D 25-OH 45.2 ng/mL (Normal) Comments: Vitamin D 25(OH) Status Range Deficiency <20 ng/mL (50nmol/L) Insuffciency 20 - 30 ng/mL (50 - 75 nmol/L) Sufficiency 30 - 100 ng/mL (75 - 250 nmol/L) Toxicity >100 ng/mL (>250 nmol/L) 28-Ryj-806275:29 Basic Metabolic Profile (BMP) Comments: Test performed at:[facility] S[address]npvlhnvk[address] [facility] [place] [address] ; handled by nohelia GAP [...] Comments: Please note revised CREATININE reference range tbbwcupfz55/22/2015. BUN 15 mg/dL (Normal) Range: 7-18 GLU 97 mg/dL (Normal) Range: 70-110 1-Jdo-584672:05 Immunofixation Urine Comments: Test performed at:[facility] [address] [place] [id number] GEMMA Urine Comment (Normal) Comments: No monoclonality detected.Performed at: - [facility] [address] [id number] Director: Shady Jackson PhD, Phone: [phone] 1-Lzg-142110:05 PTH,INTACT Comments: ORDERED LIPID,LIVERDR.BENIGNO ORDERED BMP,PTHIN,VITD,URINE IMMUNTest performed at:[facility] [address] [place] [id number] PTH,Intact 80 pg/mL (Abnormal) Range: 14-72 7-Dea-553417:05 Vitamin D,25 Hydroxy Comments: Test performed at:[facility] [address] [place] [address] Vitamin D 25-OH 35.6 ng/mL (Normal) Comments: Vitamin D 25(OH) Status Range Deficiency <20 ng/mL (50nmol/L) Insuffciency 20 - 30 ng/mL (50 - 75 nmol/L) Sufficiency 30 - 100 ng/mL (75 - 250 nmol/L) Toxicity >100 ng/mL (>250 nmol/L) 6-Elz-391233:04 Basic Metabolic Profile (BMP) Comments: Test performed at:[facility] [address] [place] [address] GAP 8 (Normal) Range: 5-15 CO2 27.0 [...] 7-18 GLU 86 mg/dL (Normal) Range: 70-110 4-Cie-089099:04 Lipid Profile Comments: Test performed at:[facility] [address] [place] [address] VLDL 19 mg/dL (Normal) Range: [...] Risk :04 Liver Profile Comments: Test performed at:[facility] [address] [place] [address] D BILI 0.16 mg/dL (Normal) Range: 0.00-0.30 T BILI 0.70 mg/dL (Normal) Range: 0.20-1.00 ALT 32 U/L (Normal) Range: 12-78 ALK P 53 U/L (Normal) Range: 50-136 AST 17 U/L (Normal) Range: 15-37 GLOB 3.1 g/dL (Normal) Range: 2.7-4.2 ALB 4.0 g/dL (Normal) Range: 3.4-5.0 T PROT 7.1 g/dL (Normal) Range: 6.4-8.2 :03 24 HR Urine Creatinine Comments: Test performed at:[facility] [address] [place] [address] UR.CREAT/24hr 1.3 {g/24_hr} (Normal) Range: 0.6-1.5 URINE CREAT 158.2 mg/dL (Normal) UR TOTAL VOLUME 0.85 L (Normal) UR COLLECT TIME 24.0 {HOURS} (Normal) 76-Sgu-66190:03 Miscellaneous Lab Procedure Comments: Comments: STONERISK PANEL #[id number](s) Ordered: STONERISK PANEL #[id number] performed at:[facility] [address]hock[address] [place] [address] [facility] Comments: TEST RESULT UNITS REFERENCE INTERVALKidney Stone, [...] - 1800.0pH, 24 Hr Urine 5.3Ammonia, Urine 00879 ug/dL Not Estab.Ammonia, Urine 20 mEq/24 hr Not E stab.Saturation Ratios:Calcium Oxalate 21.12 High ratio 0.00 - 6.00Brushite 1.78 ratio 0.00 - 3.00Monosodium Urate 2.48 ratio 0.00 - 4.00Uric Acid 5.05 High ratio 0.00 - 1.20Struvite 0.01 ratio 0.00 - 1.00Please note:Graphic analysis of results will follow:Scanned image report available in EMR TESTING PERFORMED AT [facility]. ORIGINAL REPORT ON FILE IN LAB CONTAINS ADDITIONAL TEST SITE INFORMATION. 85-Vnw-607766:32 Urine Culture,Comprehensive Comments: PATIENT NOT FASTINGPERFORMED BY: [facility] [facility] [id number] Information: SRC:[facility] [id number] Result 1 ECV (Abnormal) Comments: Escherichia coli, [...] S Urine Final report Culture,Comprehensi (Abnormal) ve 49-Qnr-037675:54 Urinalysis, Office (69050) UA - LEUKOCYTE ESTERASE Trace (Normal) UA - NITRITE Positive (Normal) URINE UROBILINGN RUDDY TIMED 2 mg/dL (Normal) UA - PROTEIN 30 mg/dL (Normal) UA - PH 6.0 (Normal) UA - BLOOD Negative (Normal) UA - SPECIFIC GRAVITY 1.030 (Abnormal) UA - KETONES Small mg/dL (Normal) UA - BILIRUBIN Negative (Normal) UA - GLUCOSE Negative (Normal) :42 HgA1C , Office (47656) HgA1C , Office 5.7 % (Normal) Range: 4.6 - 7.1 :58 CBC W/Diff, Automated Comments: Test performed at:[facility] [address] [place] [address] Absolute Lymph 1.31 {X10_3/ul} (Normal) Range: 0.83-4.51 [...] 4.2-5.4 WBC 5.2 K/mm3 (Normal) Range: 4.4-11.0 63-Iky-923893:58 Vitamin B12 368 pg/mL (Normal) Comments: Test performed at:[facility] [address] [place] [address] Range: 211-911 98-Cwd-321100:58 Vitamin D,25 Hydroxy Comments: Test performed at:[facility] [address] [place] [address] Vitamin D 25-OH 31.4 ng/mL (Normal) Comments: Vitamin D 25(OH) Status Range Deficiency <20 ng/mL (50nmol/L) Insuffciency 20 - 30 ng/mL (50 - 75 nmol/L) Sufficiency 30 - 100 ng/mL (75 - 250 nmol/L) Toxicity >100 ng/mL (>250 nmol/L) 29-Bnz-881480:46 Bilirubin, Direct Comments: LIPID LIVERASAEL PALACIOS [facility] MGDR.FAST CMP LIPID VITD [id number] performed at:[facility] [address] [place] [address] D BILI 0.16 mg/dL (Normal) Range: 0.00-0.30 78-Idg-266221:46 Comprehensive Metabolic Profil Comments: DR.OFORI OROPEZA LIVERASAEL PALACIOS [facility] MGDR.FAST CMP LIPID VITD [id number] performed at:[facility] [address] [place] [address] GAP 6 (Normal) Range: 5-15 CO2 29.0 [...] 7-18 GLU 87 mg/dL (Normal) Range: 70-110 06-Xyo-721984:46 Lipid Profile Comments: DR.OFORI OROPEZA [facility] SCHOOLISAEL PALACIOS 81ST MEDICAL GROUPDR.FAST CMP LIPID VITD [id number] performed at:[facility] [address] [place] [address] ; handled by cardio VLDL 25 mg/dL [...] 200-240 mg/dL Borderline >240 mg/dL High Risk 32-Dzq-157748:46 Magnesium Comments: DR.OFORI SANDIP [facility]ITALARTURO PALACIOS [facility] MGDR.FAST CMP LIPID VITD [id number] performed at:[facility] Osqksggmkk[address] [place], [place] [address] MG 2.1 mg/dL (Normal) Range: 1.8-2.4 51-Hdm-951944:31 Comprehensive Metabolic Profil Comments: Test performed at:[facility] [address] [place] [address] GAP 6 (Normal) Range: 5-15 [...] 7-18 GLU 92 mg/dL (Normal) Range: 70-110 96-Lwh-120673:31 Free T3 Comments: Test performed at:[facility] [address] [place] [address] FREE T3 3.1 pg/mL (Normal) Range: 2.18-3.98 79-Ypb-165219:31 Immunofixation Urine Comments: Test performed at:[facility] [address] [place] [address] GEMMA Urine Comment (Normal) Comments: No monoclonality detected.Performed at: [address] [id number] Director: Shady Jackson PhD, Phone: [phone] 02-Hqo-555657:31 T4 Free Direct Comments: Test performed at:[facility] [address] [place], [place] [address] T4 FREE DIRECT 0.97 ng/dL (Normal) Range: 0.76-1.46 51-Lfr-656719:31 Thyroid Stim Hormone (TSH) Comments: Test performed at:[facility] [address] [place] [address] TSH 0.41 {uIU/mL} (Normal) Range: 0.358-3.74 6-Obo-611664:59 EBV Panel (66613) Comments: PATIENT NOT FASTINGPERFORMED BY: Aura XM [facility] Gpqlfb[address] [facility] [id number] Interpretation: SPRCS (Normal) Comments: EBV Interpretation Chart [...] <36.0 Equivocal 36.0 - 43.9 Positive >43.9 9-Wim-347019:59 CBC W/AUTO DIFF WBC Comments: PATIENT NOT FASTINGPERFORMED BY: CB [facility] Jkjivp14[address] [facility] [id number] Information: [id number] (87454) Immature Grans (Abs) 0.0 {x10E3/uL} (Normal) Range: [...] 3.77-5.28 WBC 5.2 {x10E3/uL} (Normal) Range: 3.4-10.8 8-Zbg-207564:05 URINE LOW CULTURE-RUDDY COL Comments: PATIENT NOT FASTINGPERFORMED BY: [facility] [id number] Information: SRC:URC [id number] COUNT ([id number]) Result 1 MUG (Normal) Comments: Mixed urogenital Colonies/mL Urine Culture,Comprehensive Final report (Normal) 6-Smq-608929:07 Urinalysis, Office (12412) UA - LEUKOCYTE ESTERASE Negative (Normal) UA - NITRITE Negative (Normal) URINE UROBILINGN RUDDY TIMED 2 mg/dL (Normal) UA - PROTEIN 30 mg/dL (Normal) UA - PH 6.0 (Normal) Comments: 5.5 UA - BLOOD Negative (Normal) UA - SPECIFIC GRAVITY 1.030 (Abnormal) UA - KETONES Negative mg/dL (Normal) UA - BILIRUBIN Negative (Normal) UA - GLUCOSE Negative (Normal) 82-Qco-758560:56 Rapid Flu (90535 x 2) Influenza A Ag neg (Normal) 47-Hpx-484004:22 URINE LOW CULTURE-RUDDY COL Comments: PATIENT NOT FASTINGPERFORMED BY: [facility] [id number] Information: SRC:URC [id number] COUNT ([id number]) Result 1 MUG (Normal) Comments: Mixed urogenital flora3,000 Colonies/mL Urine Culture,Comprehensive Final report (Normal) 89-Jvt-197137:23 Urinalysis, Office (39841) UA - LEUKOCYTE ESTERASE Negative (Normal) UA - NITRITE Negative (Normal) URINE UROBILINGN RUDDY TIMED Normal mg/dL (Normal) UA - PROTEIN Negative mg/dL (Normal) UA - PH 6.0 (Normal) Comments: 5.5 UA - BLOOD Hemolyzed Trace (Normal) UA - SPECIFIC GRAVITY 1.030 (Abnormal) UA - KETONES 40 mg/dL (Abnormal) UA - BILIRUBIN Negative (Normal) UA - GLUCOSE Negative (Normal) 59-Kyg-17373:19 URINE CALCIUM RUDDY TIMED Comments: PATIENT NOT FASTINGPERFORMED BY: [facility] [id number] Information: START 10/05/14@630AM FINISH 24 Hour (18361) Calcium, Urine 24hr 330.0 {mg/24_hr} (Abnormal) Range: 100.0-300.0 Calcium, Urine 33.0 mg/dL (Normal) Comments: Results confirmed ondilution. 98-Pne-528323:34 CBC W/Diff, Automated Comments: DR LAW ORDERED CBCD VITD CMP B12 IVAN NAVARRO ORDERED LIPID LIVERTest performed at:[facility] [address] [place], [place] [address] ; handled by Emelina Navarro Absolute Lymph 1.41 {X10_3/ul} (Normal) Range: [...] 4.2-5.4 WBC 4.9 K/mm3 (Normal) Range: 4.4-11.0 49-Hml-406202:34 Comprehensive Metabolic Comments: Interface Comments: IDR V0-[id number] WO [id number] V0-[id number] Main V0- [id number] Lab [id number] 1034 [facility] UI8569 V0-[id number] Main2 LIVER Routine Profil 1 PA.MMURRA INT Main3 [id number] 1038 [id number] Transmitted LisData N [id number] 0788-1 OV LABORD CD.Queries INT.COM CD.Queries INT.DX CD.Queries INT.ORDDT CD.Queries INT.OVID CD.Queries INT.OVORD CD.Queries OECOM CD.Queries OM.PTARRIVED CD.Queries OM.REASONDiagnosis:Diagnosis: IDR V0-[id number] [facility] [id number] V0-B2014 86229Mvqysauvf: [id number] Main V0-[id number] Lab [id number] 1034Diagnosis: RANGLE QP6634 V0-[id number] Main2 LIPID RoutDiagnosis: ine 1 PA.MMURRA INT Main3 [id number] 6 0974 [id number]: 55198 Transmitted Cookie ARDON [id number] 67899-Wthelpgyl: 1 OV LAB ORD CD.Queries INT.COM 12 HOURS FASTING,Diagnosis: MAY HAVE WATER. PLEASE SEND CO PY TO PRIMARY CAREDiagnosis: PHYSICIAN. CD.Queries INT.DX CD.Queries INT.ORDDTDiagnosis: CD.Queries INT.OVID CD.Queries INT.OVORD CD.QueDiagnosis: sneha OECOM CD.Queries OM .PTARRIVED CD.Queries OM.Diagnosis: REASONTest performed at:[facility] [address] [place], [place] [address] GAP 3 (Abnormal) Range: 5-15 CO2 29.0 [...] 7-18 GLU 87 mg/dL (Normal) Range: 70-110 68-Rhx-966022:34 Lipid Profile Comments: Interface Comments: IDR V0-[id number] [facility] [id number] V0-[id number] Main V0-[id number] Lab [id number] 1034 KEV IN8421 V0-[id number] Main2 LIVER Routine 1 PA.MMURRA INT Main3 [id number] 1034 [id number] Transmitted LisData N [id number] 0788-1 OV LABORD CD.Queries INT.COM CD.Queries INT.DX CD.Queries INT.ORDDT CD.Queries INT.OVID CD.Queries INT.OVORD CD.Queries OECOM CD.Queries OM.PTARRIVED CD.Queries OM.REASONDiagnosis:Diagnosis: IDR V0-[id number] [facility] [id number] V0-B2014 01927Luhljedxy: [id number] Main V0-[id number] Lab [id number] 1034Diagnosis: KEV ES0962 V0-[id number] Main2 LIPID RoutDiagnosis: ine 1 PA.MMURRA INT Main3 20140812 6 1034 [id number]: 08619 Transmitted LisData N [id number] 99766-Menjmlitb: 1 OV LAB ORD CD.Queries INT.COM 12 HOURS FASTING,Diagnosis: MAY HAVE WATER. PLEASE SEND CO PY TO PRIMARY CAREDiagnosis: PHYSICIAN. CD.Queries INT.DX CD.Queries INT.ORDDTDiagnosis: CD.Queries INT.OVID CD.Queries INT.OVORD CD.QueDiagnosis: sneha OECOM CD.Queries OM .PTARRIVED CD.Queries OM.Diagnosis: REASONTest performed at:[facility] [address] [place] [address] VLDL 20 mg/dL (Normal) Range: 5-40 LDL [...] 200-240 mg/dL Borderline >240 mg/dL High Risk 43-Rqe-285327:34 Thyroid Stim Hormone Comments: Interface Comments: IDR V0- [id number] [facility] [id number] V0-[id number] Main V0- [id number] Lab 20140827 1034 KEV JS8177 V0-[id number] Main2 LIVER Routine (TSH) 1 PA.MMURRA INT Main3 [id number] 1035 [id number] Transmitted LisData N [id number] 0788-1 OV LABORD CD.Queries INT.COM CD.Queries INT.DX CD.Queries INT.ORDDT CD.Queries INT.OVID CD.Queries INT.OVORD CD.Queries OECOM CD.Queries OM.PTARRIVED CD.Queries OM.REASONDiagnosis:Diagnosis: IDR V0-[id number] [facility] [id number] V0-B2014 33642Uysoboewz: 93739805 Main V0-[id number] Lab 20140827 1034Diagnosis: KEV ZP8881 V0-[id number] Main2 LIPID RoutDiagnosis: ine 1 PA.MMURRA INT Main3 [id number] 6 1030 [id number]: 52088 Transmitted LisData N [id number] 72692-Slacgklxi: 1 OV LAB ORD CD.Queries INT.COM 12 HOURS FASTING,Diagnosis: MAY HAVE WATER. PLEASE SEND CO PY TO PRIMARY CAREDiagnosis: PHYSICIAN. CD.Queries INT.DX CD.Queries INT.ORDDTDiagnosis: CD.Queries INT.OVID CD.Queries INT.OVORD CD.QueDiagnosis: sneha OECOM CD.Queries OM .PTARRIVED CD.Queries OM.Diagnosis: REASONTest performed at:[facility] Jzuivtnokx[address] [address] TSH 0.44 {uIU/mL} (Normal) Range: 0.358-3.74 82-Lgg-132191:34 Vitamin B12 439 pg/mL (Normal) Comments: Test performed at:[facility] [address]izafkm[address] [place] [address] Range: 211-911 04-Qth-069318:34 Vitamin D,25 Hydroxy Comments: Test performed at:[facility] [address] [place] [address] Vitamin D 25-OH 45.3 ng/mL (Normal) Comments: Vitamin D 25(OH) Status Range Deficiency <20 ng/mL (50nmol/L) Insuffciency 20 - 30 ng/mL (50 - 75 nmol/L) Sufficiency 30 - 100 ng/mL (75 - 250 nmol/L) Toxicity >100 ng/mL (>250 nmol/L) 78-Mns-336443:13 HgA1C , Office (45418) HgA1C , Office 5.5 % (Normal) Range: 4.6 - 7.1 76-Dgq-26863:07 URINE LOW CULTURE-IDENTIFICATN Comments: PATIENT NOT FASTINGPERFORMED BY: [facility] CenterDyclmh01[address] [facility] [id number] Information: [id number] (31347) Antimicrobial MIHEAD (Normal) Comments: S = Susceptible; [...] primarily for treating urinary tract infections. (CLSI, B464-C94,2009) Urine Final report (Abnormal) Culture,Comprehensive 00-Syh-30322:54 Urinalysis, Office (92367) UA - LEUKOCYTE ESTERASE Negative (Normal) UA [...] CHOL 191 mg/dL (Normal) Comments: <200 mg/dL Ecdmgeywi800-618 mg/dL Borderline>240 mg/dL High Risk :54 LIVER BID 0.12 mg/dL (Normal) Range: 0.00-0.30 BIT 0.60 mg/dL (Normal) Range: 0.00-4.00 ALT 23 U/L (Normal) Range: 12-78 ALK 61 U/L (Normal) Range: 50-136 AST 13 U/L (Abnormal) Range: 15-37 ALB 3.8 g/dL (Normal) Range: 3.4-5.0 TPROT 7.0 g/dL (Normal) Range: 6.4-8.2 9-Oct-332323:34 CUUR URC See Note (Normal) Comments: ORGANISM [...] <=20 S(NF) indicates non-formulary drug at [facility]. Approval by Infectious DiseaseSpecialist required before non-formulary drugs may beordered and/or dispensed. 6-Upz-887702:33 [facility] Comments: How was Urine Obtained? INT [...] UCLAR Sl. Cloudy (Normal) UCOL Yellow (Normal) 25-Pyk-212822:54 VITAMIN B-12 (CYANOCOBALAMIN) Comments: PATIENT NOT FASTINGPERFORMED BY: [facility] Rjansv0384 [facility] [id number] (16124) Vitamin B12 439 pg/mL (Normal) Range: 211-946 84-Yhv-060478:54 METABOLIC PANEL, COMPREHENSIVE Comments: PATIENT NOT FASTINGPERFORMED BY: [facility] Tlronl0477 [facility] [id number] (73594) ALT (SGPT) 15 [iU]/L (Normal) Range: 0-32 [...] Glucose, Serum 97 mg/dL (Normal) Range: 65-99 17-Xqp-663203:54 CBC WITH MANUAL DIFF Comments: PATIENT NOT FASTINGPERFORMED BY: [facility] Ddzpgw4725 [facility] [id number] Information: [id number],[id number] (71297) Immature Grans (Abs) 0.0 {x10E3/uL} (Normal) Range: [...] 3.77-5.28 WBC 5.3 {x10E3/uL} (Normal) Range: 3.4-10.8 47-Fce-236089:44 PARATHORMONE (25084) Comments: PATIENT NOT FASTINGPERFORMED BY: [employer] [place] [id number] PTH, Intact 38 pg/mL (Normal) Range: 15-65 66-Cag-395136:44 TSH (THYROID STIMULATING Comments: PATIENT NOT FASTINGPERFORMED BY: [employer] [place] [id number] Information: [id number] HORMONE) (89450) TSH 0.535 {uIU/mL} (Normal) Range: 0.450-4.500 61-Zlq-831144:44 PHOSPHORUS (81276) Comments: PATIENT NOT FASTINGPERFORMED BY: [employer] [employer] TherapeuticsDublin [place] [id number] Phosphorus, Serum 2.9 mg/dL (Normal) Range: 2.5-4.5 11-Swe-876537:21 Calcium Serum (92911) Comments: 10 days; PATIENT NOT FASTINGPERFORMED BY: [place] 45350[address] [facility] [id number] Information: [id number] Calcium, Serum 10.3 mg/dL (Abnormal) Range: 8.6-10.2 76-Cwx-805602:32 Urinalysis, Office (30287) UA - LEUKOCYTE ESTERASE Negative (Normal) UA - NITRITE Negative (Normal) URINE UROBILINGN RUDDY TIMED Normal mg/dL (Normal) UA - PROTEIN Negative mg/dL (Normal) UA - PH 6.5 (Normal) UA - BLOOD Non Hemolyzed Trace (Normal) UA - SPECIFIC GRAVITY 1.010 (Normal) UA - KETONES Negative mg/dL (Normal) UA - BILIRUBIN Negative (Normal) UA - GLUCOSE Negative (Normal) 34-Vge-819644:41 URINE LOW CULTURE (RUDDY Comments: PATIENT NOT FASTINGPERFORMED BY: [address] [id number] Information: SRC: [id number] COL COUNT) (79439) Result 1 MUG (Normal) Comments: Mixed urogenital Colonies/mL Urine Culture,Comprehensive Final report (Normal) 8-Erz-288037:12 CALCIUM SERUM (63919) Comments: redraw in 10 days; PATIENT NOT FASTINGPERFORMED BY: [place] 45350[address] [facility] [id number] Information: [id number] Calcium, Serum 10.1 mg/dL (Normal) Range: 8.6-10.2 24-Gtm-356635:13 CBC WITH MANUAL DIFF Comments: PATIENT NOT FASTINGPERFORMED BY: [facility] [facility] [id number] Information: [id number],[id number] (07354) Immature Grans (Abs) 0.0 {x10E3/uL} (Normal) Range: [...] 3.77-5.28 WBC 5.7 {x10E3/uL} (Normal) Range: 3.4-10.8 08-Wbj-285426:13 METABOLIC PANEL, COMPREHENSIVE Comments: PATIENT NOT FASTINGPERFORMED BY: [facility]CoSaint [facility] CenterQrbdrd3728 [facility] [id number] (11168) ALT (SGPT) 15 [iU]/L (Normal) Range: 0-32 [...] Glucose, Serum 95 mg/dL (Normal) Range: 65-99 37-Nkn-844208:13 URINE LOW CULTURE (RUDDY Comments: PATIENT NOT FASTINGPERFORMED BY: [facility] [id number] Information: SRC:UR [id number] COL COUNT) (86369) Result 1 ECV (Abnormal) Comments: Escherichia coli, [...] S Urine Final report Culture,Comprehensi (Abnormal) ve 98-Ebp-667439:00 URINE LOW CULTURE-RUDDY COL Comments: PATIENT NOT FASTINGPERFORMED BY: [employer] Therapeuticswy [place] [id number] Information: SRC:UR [id number] COUNT (19166) Result 1 NG36 (Normal) Comments: No growth in 36 - 48 hours. Urine Culture,Comprehensive Final report (Normal) 15-Idu-568834:45 Urinalysis, Office (89670) UA - LEUKOCYTE ESTERASE Negative (Normal) UA - NITRITE Negative (Normal) URINE UROBILINGN RUDDY TIMED Normal mg/dL (Normal) UA - PROTEIN 30 mg/dL (Normal) UA - PH 6 (Abnormal) UA - BLOOD Negative (Normal) UA - SPECIFIC GRAVITY 1.030 (Abnormal) UA - KETONES 15 mg/dL (Abnormal) UA - BILIRUBIN Small (Normal) UA - GLUCOSE Negative (Normal) 11-Mwz-45254:51 Urinalysis, Office (74055) UA - LEUKOCYTE ESTERASE Negative (Normal) UA - NITRITE Negative (Normal) URINE UROBILINGN RUDDY TIMED Normal mg/dL (Normal) UA - PROTEIN Negative mg/dL (Normal) UA - PH 6 (Abnormal) UA - BLOOD Negative (Normal) UA - SPECIFIC GRAVITY 1.030 (Abnormal) UA - KETONES 15 mg/dL (Abnormal) UA - BILIRUBIN Negative (Normal) UA - GLUCOSE Negative (Normal) 64-Ikm-799627:47 URINE LOW CULTURE-RUDDY COL Comments: PATIENT NOT FASTINGPERFORMED BY: [facility] [id number] [id number] Information: SRC:UR [id number] COUNT (58481) Result 1 ECV (Normal) Comments: Escherichia coli, [...] S Urine Final report (Normal) Culture,Comprehensiv e 2-Bha-232569:41 HgA1C , Office (46201) HgA1C , Office 5.7 % (Normal) Range: 4.6 - 7.1 70-Wnl-539667:59 Thin prep Pap Comments: Source.............Cervical;EndocervicalNo. of containers..01 CYTYC Thin Prep VialPATIENT NOT FASTINGPERFORMED BY: [facility] [address] [place] [id number] Information: [id number] ([id number]) Note: PAPSMR (Normal) Comments: The Pap smear [...] neopla sm of the cervixJulie Sukh Burrows, [employer] (ASCP) 6-Tis-360526:06 LIPID PANEL (30847) Comments: PATIENT WAS FASTINGPERFORMED BY: [facility] [id number] [id number] LDL/HDL Ratio 2.5 {ratio_units} (Normal) Range: 0.0-3.2 LDL Cholesterol Calc 138 mg/dL (Abnormal) Range: 0-99 VLDL Cholesterol Nahid 20 mg/dL (Normal) Range: 5-40 HDL Cholesterol 55 mg/dL (Normal) Comments: According to ATP-III Guidelines, HDL-C >59 mg/dL is considered anegative risk factor for CHD. Triglycerides 99 mg/dL (Normal) Range: 0-149 Cholesterol, Total 213 mg/dL (Abnormal) Range: 100-199 8-Ybk-801839:06 MICROALBUMIN: CREATININE RATIO Comments: PATIENT WAS FASTINGPERFORMED BY: [facility] CenterInduzo[address] [id number] (62788) AND (90298) Microalb/Creat Ratio 11.9 {mg/g_creat} (Normal) Range: 0.0-30.0 Microalbumin, Urine 15.8 ug/mL (Normal) Range: 0.0-17.0 Creatinine, Urine 132.4 mg/dL (Normal) Range: 15.0-278.0 6-Dyx-820996:06 METABOLIC PANEL, COMPREHENSIVE Comments: PATIENT WAS FASTINGPERFORMED BY: [facility]OMN Yqhyht[address] [id number] (50016) ALT (SGPT) 22 [iU]/L (Normal) Range: 0-32 [...] Glucose, Serum 99 mg/dL (Normal) Range: 65-99 8-Zft-272674:06 VITAMIN B-12 (CYANOCOBALAMIN) Comments: PATIENT WAS FASTINGPERFORMED BY: [facility] [id number] (08820) Vitamin B12 1401 pg/mL (Abnormal) Range: 211-946 :06 CBC (AUTO) (27808) Comments: PATIENT WAS FASTINGPERFORMED BY: [facility] [id number] Platelets 242 {x10E3/uL} (Normal) Range: 155-379 RDW 13.5 % (Normal) Range: 12.3-15.4 MCHC 33.5 g/dL (Normal) Range: 31.5-35.7 MCH 30.4 pg (Normal) Range: 26.6-33.0 MCV 91 fL (Normal) Range: 79-97 Hematocrit 41.8 % (Normal) Range: 34.0-46.6 Hemoglobin 14.0 g/dL (Normal) Range: 11.1-15.9 RBC 4.60 {x10E6/uL} (Normal) Range: 3.77-5.28 WBC 4.6 {x10E3/uL} (Normal) Range: 3.4-10.8 6-Hsd-913717:06 Vitamin D Hydroxy (19152) Comments: PATIENT WAS FASTINGPERFORMED BY: [facility] [id number] Vitamin D, 25-Hydroxy 58.4 ng/mL (Normal) Range: 30.0-100.0 Comments: Vitamin D deficiency has been defined by the [place] of[place] and an Endocrine Society practice guideline as alevel of serum 25-OH vitamin D less than 20 ng/mL (1,2).The Endocrine Society went on to further define vitamin Dinsufficiency as a level between 21 and 29 ng/mL (2).1. IOM ([place] of [employer]). 2010. Dietary reference intakes for calcium and D. [place]: The National Academies Press.2. Robinson MF, Keila NC, Bruce ROBLES, et al. Evaluation, treatment, and prevention of vitamin D deficiency: an Endocrine Society clinical practice guideline. JCEM. 2010; 96(7):1911-30. :48 HgA1C , Office (40409) HgA1C , Office 5.2 % (Normal) Range: 4.6 - 7.1 :52 URINE LOW CULTURE-RUDDY COL Comments: PATIENT NOT FASTINGPERFORMED BY: [facility] Ycdrco17[address] [facility] [id number] Information: SRC:UR [id number] COUNT (56610) Result 1 MUG (Normal) Comments: Mixed urogenital fpucu346 Colonies/mL Urine Culture,Comprehensive Final report (Normal) :53 Urinalysis, Office (39944) UA - BILIRUBIN Negative (Normal) UA - [...] performed. Images were obtained from T1 to W25hxmpe. Sagittal and coronal images were reconstruc anum. [...] Saldaña M.D.February 10, 2013 at 2:48:17 PM [id number] Signed GP/GP If you are the referring physician and would like to consult with [facility] who provided this interpretation, please contact José Miguel Sheikh at [phone]. If this radiologist is unavailable, youwill be directed to another radiologist to assist. If you are a zenon ent with a question regarding this report, pleasecontactyour referring physician directly. Professional Interpretation Provided By: [employer], Phone , These documents con tain legally [...] 1448 by Ileana Saldaña MDribed on 02/10/13 145 by ITS IMPORTSign by Corey Saldaña MD [...] Rutherford M.D.February 10, 2013 at 4:25:07 PM [id number] Signed DN/DN If you are the referring physician and would like t o consult with theradiologist who provided this interpretation, please contact Court Lund M.D. at [phone]. If this radiologist is unavailable, youwillbe directed to another radiologist to rica bailon. If you are a patient with a question regarding this report, pleasecontactyour referring physician directly. Professional Interpretation Provided By: [employer], Phone ,Fax These documents contain legally protected [...] on 02/10/131627 Sign by: COURT RUTHERFORD MD 32-Aoi-751570:10 BRAIN/HEAD WITHOUT CONTRAST Radiology Report See Note [...] Saldaña M.D.January 23, 2013 at 3:28:07 PM [id number] Signed GP/GP If you are the referring [facility] and would like to consult with theradiologist who provided this interpretation, please contact José Miguel Sheikh at [phone]. If this radiologist is unavailable, youwill be directed to another radiologist to assist. If you are a patient with a question regarding this report, pleasecontactyour referring physician directly. Professional Interpretation Provided By: [employer], Phone , These documents contain legally protected [...] documents. Dictated on 01/23/13 1528 by Michael METZ,Ninfaranscribed on 01/23/13 1530 by ITS IMPORTSign by Michael METZ,Corey on 1531 Sign by: Michael METZ,Corey 45-Weg-652058:10 THORACIC SPINE 3 VIEWS Radiology Report See [...] Saldaña M.D.January 23, 2013 at 3:37:41 PM [id number] Signed GP/GP If you are the referring physician and would l elizabeth to consult with theradiologist who provided this interpretation, please contact José Miguel Sheikh at [phone]. If this radiologist is unavailable, youwill be directed to another radiologis t to assist. If you are a patient with a question regarding this report, pleasecontactyour referring physician directly. Professional Interpretation Provided By: [employer], Phone ,Fax These documents contain legally protected [...] return or destructionofthese documents. Dictated on 01/23/13 1537 by Michael METZ,GabrieleTranscribed on 01/23/13 1539 by ITS IMPORTSign by Michael METZ,Corey on 01/23/13 1540 Sig n by: Corey Saldaña MD 13-Nov-20129:11 Microscopic Examination Comments: PATIENT WAS FASTINGPERFORMED BY: [facility] [facility] Zeawef[address] [id number] Bacteria Few (Normal) Mucus Threads Present (Normal) Epithelial Cells (non renal) 0-10 {/hpf} (Normal) Range: 0 - 10 RBC 0-3 {/hpf} (Normal) Range: 0 - 3 WBC 0-5 {/hpf} (Normal) Range: 0 - 5 :11 URINALYSIS, W/ MICRO (86960) Comments: PATIENT WAS FASTINGPERFORMED BY: [facility] [facility] [facility] Fgsgip[address] [id number] Microscopic Examination See below: (Normal) Microscopic Examination MICRON (Normal) Comments: Microscopic follows if indicated. Nitrite, Urine Negative (Normal) Urobilinogen,Semi-Qn 0.2 mg/dL (Normal) Range: 0.0-1.9 Bilirubin Negative (Normal) Occult Blood Negative (Normal) Ketones Negative (Normal) Glucose Negative (Normal) Protein Negative (Normal) WBC Esterase Negative (Normal) Appearance Clear (Normal) Urine-Color Yellow (Normal) pH 6.0 (Normal) Range: 5.0-7.5 Specific [place] 1.019 (Normal) Range: 1.005-1.030 :11 METABOLIC PANEL, Comments: PATIENT WAS FASTINGPERFORMED BY: [facility] Pedsqc[address] [id number] Information: [id number] COMPREHENSIVE (53161) ALT (SGPT) 18 [iU]/L (Normal) Range: 0-32 [...] B-12 (CYANOCOBALAMIN) Comments: PATIENT WAS FASTINGPERFORMED BY: [facility] [facility] [facility] Fyjull0322 Cell[facility] MetalsAtrium Healthin [place] [id number] (70939) Vitamin B12 314 pg/mL (Normal) Range: 211-946 :11 TSH (35202) Comments: PATIENT WAS FASTINGPERFORMED BY: [employer] [facility] Cwheaw3635 Bethea RoadDublin [place] [id number] TSH 0.679 {uIU/mL} (Normal) Range: 0.450-4.500 4-Apr-30366:11 Vitamin D Hydroxy (32594) Comments: PATIENT WAS FASTINGPERFORMED BY: [employer] [id number] Vitamin D, 25-Hydroxy 69.4 ng/mL (Normal) Range: 30.0-100.0 Comments: Vitamin D deficiency has been defined by the [place] of[place] and an Endocrine Society practice guideline as alevel of serum 25-OH vitamin D less than 20 ng/mL (1,2).The Endocrine Society went on to further define vitamin Dinsufficiency as a level between 21 and 29 ng/mL (2).1. IOM ([place] of [employer]). 2010. Dietary reference intakes for calcium and D. [place]: The National Academies Press.2. Robinson MF, Keila AGUERO, Bruce ROBLES, et al. Evaluation, treatment, and prevention of vitamin D deficiency: an Endocrine Society clinical practice guideline. JCEM. 2010; 96(7):1911-30. 13-Nov-20129:11 LIPID PANEL (41222) Comments: PATIENT WAS FASTINGPERFORMED BY: [employer] [id number] LDL/HDL Ratio 2.7 {ratio_units} (Normal) Range: 0.0-3.2 LDL Cholesterol Calc 130 mg/dL (Abnormal) Range: 0-99 VLDL Cholesterol Nahid 12 mg/dL (Normal) Range: 5-40 HDL Cholesterol 48 mg/dL (Normal) Comments: According to ATP-III Guidelines, HDL-C >59 mg/dL is considered anegative risk factor for CHD. Triglycerides 59 mg/dL (Normal) Range: 0-149 Cholesterol, Total 190 mg/dL (Normal) Range: 100-199 :33 EBV Panel (10901) Comments: PATIENT NOT FASTINGPERFORMED BY: [employer] [facility] [id number] Interpretation: SPRCS (Normal) Comments: EBV Interpretation Chart [...] <0.9 Equivocal 0.9 - 1.0 Positive >1.0 40-Ygn-14275:33 CBC WITH MANUAL DIFF Comments: PATIENT NOT FASTINGPERFORMED BY: [facility] Egnmth[address] [id number] Information: [id number] (92968) Immature Grans (Abs) 0.0 {x10E3/uL} (Normal) Range: [...] 3.77-5.28 WBC 5.3 {x10E3/uL} (Normal) Range: 4.0-10.5 32-Ydz-02020:06 BILAT SCRN DIGITAL & CAD Radiology Report See Note (Normal) Comments: MAMMOGRAPHY - BILATERAL SCREENING REASON FOR EXAM: Female, 66 years old. Routine annual screeningexamination. PERTINENT HISTORY: Daughter with breast cancer. TECHNIQUE: Digital examin ation. Medi olateral oblique (MLO) andcraniocaudad (CC) views of both breasts were obtained. CAD: CAD wasperformed on this study. COMPARISON: Comparison is made with prior studies dated July 252010. FINDINGS:The breast composition is heterogeneously dense. There [...] Saldaña M.D.July 30, 2012 at 8:47:07 AM [id number] Signed GP/GP If you are the referring physician and would like to consult with mariel hurd who provided this interpretation, please contact José Miguel Sheikh at [phone]. If this radiologist is unavailable, youwill be directed to another radiologist to assist. If you are a pa tient with a question regarding this report, pleasecontactyour referring physician directly. Professional Interpretation Provided By: [employer], Phone , These documents c ontain legally [...] uctionofthese documents. Dictated on 07/30/12805 by Michael METZ,Ninfaranscribed on 07/30/1256 by ITS IMPORTSign by Michael METZ,Corey on 07/30/1258 Sign by: Corey Saldaña MD 57-Fnq-671914:10 URINE LOW CULTURE-IDENTIFICATN Comments: PATIENT NOT FASTINGPERFORMED BY: [facility]CoSaint [facility] CenterGibfut[address] [id number] Information: [id number] (39036) Antimicrobial MIHEAD (Normal) Comments: S = Susceptible; [...] primarily for treating urinary tract infections. (CLSI, V062-X03,2009) Urine Final report (Normal) Culture,Comprehensive 69-Gwr-615964:54 Urinalysis, Office (14299) UA - BILIRUBIN Negative (Normal) UA - BLOOD Negative (Normal) UA - GLUCOSE Negative (Normal) UA - KETONES Negative mg/dL (Normal) UA - LEUKOCYTE ESTERASE Trace (Normal) UA - NITRITE Negative (Normal) UA - PH 7.0 (Normal) UA - PROTEIN Negative mg/dL (Normal) UA - SPECIFIC GRAVITY 1.025 (Normal) URINE UROBILINGN RUDDY TIMED Normal mg/dL (Normal) 05-Mdi-56775:05 DEXA BONE DENSITY STUDY () Radiology Report [...] Saldaña M.D.May 06, 2012 at 1:38:17 PM [id number] Signed GP/GP If you are the referring physicia n and would like to consult with theradiologist who provided this interpretation, please contact José Miguel Sheikh at [phone]. If this radiologist is unavailable, youwill be directed to [facility] radiologist to assist. If you are a patient with a question regarding this report, pleasecontactyour referring physician directly. Professional Interpretation Provided By: [employer], Phone , These documents contain legally protected and confidential healthinformation intended only for the use of the individual or entity namedabove. If you are not the intended recipie nt, you are hereby notifiedthatany disclosure, copying, distribution, or other use of these documents isstrictly prohibited. If you have received this information in error,pleasenotify the sender immedrosy gómezly and arrange for the return or destructionofthese documents. Dictated on 05/06/12 0916 by Ninfa Saldaña MDranscribed on 05/06/12 1345 by ITS IMPORTSign by Corey Saldaña MD on 2 1346 Sign by: Corey Saldaña MD 01-Zns-355018:18 L/S SPINE,MIN 4 VIEWS Radiology Report See [...] EDTElectronically Signed GP/GP Professional Interpretation Provided By: [facility] RadiologyG[facility], , To consult with a radiologist regarding this report, please call our 50C6eugmzgl line @ [phone] Dictated on 01/09/12 1614 by Ninfa Saldaña MDranscribed on 01/10/121940 by ITS IMPORTSign by Corey Saldaña MD on 01/10/121941 Sign by: Corey Saldaña MD 9-Zqq-952757:36 METABOLIC PANEL, COMPREHENSIVE Comments: PATIENT WAS FASTINGPERFORMED BY: LabCoSaint Francis Medical CenterNkacqo[address] [id number] (28079) ALT (SGPT) 21 [iU]/L (Normal) Range: 0-40 [...] Glucose, Serum 92 mg/dL (Normal) Range: 65-99 2-Cqi-320710:36 LIPID PANEL (14889) Comments: PATIENT WAS FASTINGPERFORMED BY: [facility]CoSaint [facility] Medical CenterMfylqk[address] [id number] LDL/HDL Ratio 2.5 {ratio_units} (Normal) Range: 0.0-3.2 LDL Cholesterol Calc 118 mg/dL (Abnormal) Range: 0-99 VLDL Cholesterol Nahid 15 mg/dL (Normal) Range: 5-40 HDL Cholesterol 48 mg/dL (Normal) Comments: According to ATP-III Guidelines, HDL-C >59 mg/dL is considered anegative risk factor for CHD. Triglycerides 76 mg/dL (Normal) Range: 0-149 Cholesterol, Total 181 mg/dL (Normal) Range: 100-199 3-Rwh-910286:36 Vitamin D Hydroxy (72625) Comments: PATIENT WAS FASTINGPERFORMED BY: [facility] [id number] Vitamin D, 25-Hydroxy 36.0 ng/mL (Normal) Range: 30.0-100.0 Comments: Vitamin D deficiency has been defined by the [place] of[place]icine and an Endocrine Society practice guideline as alevel of serum 25-OH vitamin D less than 20 ng/mL (1,2).The Endocrine Society went on to further define vitamin Dinsufficiency as a level between 21 and 29 ng/mL (2).1. IOM ([place] of [employer]). 2010. Dietary reference intakes for calcium and D. [place]: The National Academies Press.2. Robinsno MF, Keila AGUERO, Bruce ROBLES, et al. Evaluation, treatment, and prevention of vitamin D deficiency: an Endocrine Society clinical practice guideline. JCEM. 2010; 96(7):1911-30. :36 CBC WITH MANUAL DIFF Comments: PATIENT WAS FASTINGPERFORMED BY: [facility] Vejzgt[address] [id number] Information: [id number] (96899) Immature Grans (Abs) 0.0 {x10E3/uL} (Normal) Range: [...] 3.80-5.10 WBC 4.3 {x10E3/uL} (Normal) Range: 4.0-10.5 17-Koo-12446:35 BILAT SCRN DIGITAL & CAD Radiology Report [...] radiologist regarding this report, please call our 96Y7awscvcg line @ Dictated on 07/25/11 2944 by Michael METZ, Ninfaranscribed on 07/27/11 1144 by ITS IMPORTSign by Corey Saldaña MD on 07/27/11 1145 Sign by: Corey Saldaña MD 83-Gjb-689375:59 URINE LOW CULTURE-IDENTIFICATN Comments: PERFORMED BY: [facility] Akqcff[address] [id number] Information: SRC: URINE (53536) Result 1 NG36 (Normal) Comments: No growth in 36 - 48 hours. Urine Culture,Comprehensive Final report (Normal) 66-Chu-812670:31 URINE LOW CULTURE-RUDDY COL Comments: PATIENT NOT FASTINGPERFORMED BY: [facility] Bgvntk[address] [id number] Information: SRC: URINE COUNT (81647) Antimicrobial MIHEAD (Normal) Comments: S = Susceptible; [...] primarily for treating urinary tract infections. (CLSI, U071-G30,2009) Urine Final report (Normal) Culture,Comprehensive 09-Zxq-814109:06 Urinalysis, Office (45721) UA - BILIRUBIN Negative (Normal) UA - BLOOD Non Hemolyzed Moderate (Normal) UA - GLUCOSE Negative (Normal) UA - KETONES Negative mg/dL (Normal) UA - LEUKOCYTE ESTERASE Small (Normal) UA - NITRITE Negative (Normal) UA - PH 6.0 (Normal) UA - PROTEIN Negative mg/dL (Normal) UA - SPECIFIC GRAVITY 1.025 (Normal) URINE UROBILINGN RUDDY TIMED Normal mg/dL (Normal) 0-Kxx-993344:26 URINE LOW CULTURE-RUDDY COL Comments: PATIENT NOT FASTINGPERFORMED BY: [facility] Ayjkey[address] [facility] [id number] Information: SRC: URINE COUNT (48611) Result 1 ECV (Normal) Comments: Escherichia coli, [...] STrimethoprim/Sulfa S Urine Final report (Normal) Culture,Comprehensive 6-Wts-352039:03 Urinalysis, Office (81819) UA - BILIRUBIN Negative (Normal) UA - BLOOD Hemolyzed Small (Normal) UA - GLUCOSE Negative (Normal) UA - KETONES Negative mg/dL (Normal) UA - LEUKOCYTE ESTERASE Negative (Normal) UA - NITRITE Negative (Normal) UA - PH 6.0 (Normal) UA - PROTEIN Negative mg/dL (Normal) UA - SPECIFIC GRAVITY 1.025 (Normal) URINE UROBILINGN RUDDY TIMED Normal mg/dL (Normal) 76-Udd-79654:55 Urinalysis, Office (28214) UA - LEUKOCYTE ESTERASE Small (Normal) UA - NITRITE Negative (Normal) URINE UROBILINGN RUDDY TIMED Normal mg/dL (Normal) UA - PROTEIN Negative mg/dL (Normal) UA - PH 6.0 (Normal) UA - BLOOD Hemolyzed Trace (Normal) UA - SPECIFIC GRAVITY 1.025 (Normal) UA - KETONES Negative mg/dL (Normal) UA - BILIRUBIN Negative (Normal) UA - GLUCOSE Negative (Normal) 3-Cld-225880:23 DEXA BONE DENSITY STUDY (HP) Radiology Report See Note Comments: Exam Number: [id number] CLINICAL:This is a 64-year-old female patient with history of osteopenia. EXAMINATION:DUAL ENERGY X-RAY ABSORPTIOMETRY / DEXA. TECHNIQUE:Bone Density Measurements (BMD) of lumbar (Normal) spine and bilateral hipswere obtained using a Say2me scanner.. COMPARISON:Comparison is made with prior examination [...] http://www.nof.org Reported By: COREY SALDAÑA 21-Dec-19 METHYLM 864305 5675 nmol/L Range: 73-376 1017:48 (Abnormal) Comments: The reference range for methylmalonic acid has been set at+3sd above the mean for healthy blood bank donors. In theclinical assessment of patients with megaloblastic anemiasa cutoff of +3sd provides gre ater specificity in thediagnosis of the vitamin deficiency states, despite thesacrifice of some sensitivity. 21-Dec-19 VIT D,25 25183 38.5 ng/mL Range: 32.0-100.0 1017:48 (Normal) Comments: Recent studies consider the lower limit of 32.0 ng/mL to marquita threshold for optimal health.Carlos HERNANDEZ. J Nutr. 2004;135(2):317- 22.Performed at: - [facility] [address] [id number] Director: Quincy Merida MDPerformed at: - [facility] [id number] Director: Britt Sanchez MD 6-Edh-396562:24 CBCD,SMEAR DIFF RED CELL MORPH SeeNote {NORMAL} [...] 11.6-14.6 WBC 5.0 K/mm3 (Normal) Range: 4.4-11.0 2-Zva-592389:23 VITAMIN B12 485 pg/mL (Normal) Range: 254-1320 5-Lqg-969085:23 TSH 0.60 {uIU/mL} (Normal) Range: 0.358-3.74 6-Dwx-817316:23 LIPID CHOL 203 mg/dL (Abnormal) Comments: <200 mg/dL Xpmafascv443-634 mg/dL Borderline>240 mg/dL High Risk HDL 49 mg/dL (Normal) Comments: Reference RangeHDL <40 mg/dL Low HDL CholesterolHDL >or= 60 mg/dL High HDL Cholesterol LDL 130 mg/dL (Normal) Range: 0-130 TRIG 120 mg/dL (Normal) Comments: Serum Triglycerides Reference IntervalNormal <150 mg/dLBorderline high 150 - 199 mg/dLHigh 200 - 499 mg/ dLVery High > or = 500 mg/dL VLDL 24 mg/dL (Normal) Range: 5-40 1-Cal-807063:23 COMP METABOLIC CO2 29.0 mmol/L (Normal) Range: [...] (Normal) GLU 95 mg/dL (Normal) Range: 70-110 9-Nde-541586:21 BILAT SCRN DIGITAL & CAD Radiology Report See Note (Normal) Comments: Exam Number: [id number] MAMMOGRAM, BILATERAL SCREENING DIGITAL AND CAD HISTORYRoutine [...] werealso examined wit h computer-aided detection software ([employer].). Reported By: JOSHUA MCGEE M.D. 18-May-2009 VIT D,25 59170 81.6 ng/mL Range: 32.0-100.0 11:41 (Normal) Comments: Recent studies consider the lower limit of 32.0 ng/mL to marquita threshold for optimal health.Carlos HERNANDEZ. J Nutr. 2004;135(2):317- 22.Performed At: [facility] [place], [place] [id number] 27-Ucb-32082:59 COMP METABOLIC A/G 1.2 {RATIO} (Normal) Range: [...] VLDL 23 mg/dL (Normal) Range: 5-40 :59 PTH,HVNSQK46830 PTH,Intact 54 pg/mL (Normal) Range: 15-65 Comments: Performed At: [address] [id number] :59 VIT D,25 88667 145.0 ng/mL (Abnormal) Range: 32.0-100.0 Comments: Recent studies consider the lower limit of 32.0 ng/mL to marquita threshold for optimal health.Carlos HERNANDEZ. J Nutr. 2004;135(2):317-22. 2-Xwh-697436:42 RIBS UNIL 2V NO CXR Radiology Report See Note (Normal) Comments: Exam Number: [id number] RIGHT RIBS 4 VIEWS STATEMENTRight rib pain. [...] No pneumothorax. Reported By: DALLIN VALENZUELA M.D. 8-Hbp-239378:39 CHEST, PA AND LATERAL Radiology Report See Note (Normal) Comments: Exam Number: [id number] CHEST PA AND LATERAL STATEMENTRib pain. COMPARISON STUDYNov2006. The heart size is within normal limits. [...] as described. Reported By: DALLIN VALENZUELA M.D. 4-Evx-414394:2 CA 9.2 mg/dL (Normal) Comments: ORDERED LIPID,LIVERDR.THANH ORDERED VITD,PTH,TSH,CALCIUM,LIPID ORDERED CALCIUM,PTH,SPEP,UPEP 6 Range: 8.5-10.1 4-Uqc-005749:26 LIPID Comments: ORDERED LIPID,LIVERDR.THANH ORDERED VITD,PTH,TSH,CALCIUM,LIPID ORDERED CALCIUM,PTH,SPEP,UPEP CHOL 156 mg/dL (Normal) Comments: [...] mg/dL VLDL 11 mg/dL (Normal) Range: 5-40 2-Vbk-710807:26 LIVER Comments: ORDERED LIPID,LIVERDR.THANH ORDERED VITD,PTH,TSH,CALCIUM,LIPID ORDERED CALCIUM,PTH,SPEP,UPEP ALB 3.7 g/dL (Normal) Range: 3.4-5.0 ALK P 59 U/L (Normal) Range: 50-136 ALT 34 U/L (Normal) Range: 30-65 AST 21 U/L (Normal) Range: 15-37 D BILI 0.07 mg/dL (Normal) Range: 0.00-0.30 T BILI 0.53 mg/dL (Normal) Range: 0.00-1.00 T PROT 6.8 g/dL (Normal) Range: 6.4-8.2 0-Xlq-004990:26 PROT.[id number] Comments: ORDERED LIPID,LIVERDR.FAST ORDERED VITD,PTH,TSH,CALCIUM,LIPID ORDERED CALCIUM,PTH,SPEP,UPEP ALBUMIN,UR 34.4 % (Normal) FJQCV-4-ABCR,U 2.8 % (Normal) UUFQL-5-CKVY,U 11.5 % (Normal) BETA GLOB,U 30.6 % (Normal) GAMMA GLOB,U 20.7 % (Normal) M-SPIKE,U SeeNote % (Normal) Comments: Result: Not Observed NOTE Comment (Normal) Comments: Protein electrophoresis scan will follow via mail orcourier. PROTEIN,UR 20.0 mg/dL (Abnormal) Range: 0.0-15.0 2-Etv-444679:26 PTH,[id number] Comments: ORDERED LIPID,LIVERDR.FAST ORDERED VITD,PTH,TSH,CALCIUM,LIPID ORDERED CALCIUM,PTH,SPEP,UPEP PTH,Intact 71 pg/mL (Abnormal) Range: 15-65 Comments: Performed At: [address] [id number] 4-Ymu-290674:26 SPE [id number] Comments: ORDERED LIPID,LIVERDR.FAST ORDERED VITD,PTH,TSH,CALCIUM,LIPID ORDERED CALCIUM,PTH,SPEP,UPEP A/G RATIO 1.4 (Normal) Range: [...] orcourier. PROTEIN,TOTAL 6.6 g/dL (Normal) Range: 6.0-8.5 4-Nfx-659140:26 TSH 0.65 {uIU/mL} (Normal) Comments: ORDERED LIPID,LIVERDR.FAST ORDERED VITD,PTH,TSH,CALCIUM,LIPIDDR ORDERED CALCIUM,PTH,SPEP,UPEP Range: 0.34-4.82 :26 VIT D,25 17555 31.0 ng/mL (Abnormal) Comments: ORDERED LIPID,LIVERDR.FAST ORDERED VITD,PTH,TSH,CALCIUM,LIPIDDR. ORDERED CALCIUM,PTH,SPEP,UPEP Range: 32.0-100.0 Comments: Recent studies consider the lower limit of 32.0 ng/mL to marquita threshold for optimal health.Carlos HERNANDEZ. J Nutr. 2004;135(2):317-22. 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 .Performed At: [address] [id number] PAPR Comment (Normal) Comments: The Pap smear is a screening test designed to aid in thedetection of premalignant and malignant conditions of theuterine cervix. It is not a diagnostic procedure andshould not be used as the sole means of detecting cervicalcancer. Both false-positive and false-negative reports dooccur. . PERFORM Comment (Normal) Comments: [employer]oss[employer], [employer] ([facility]) 06-Agf-775589:23 UNILAT LT DIAG DIGITAL & CAD Radiology Report See Note (Normal) Comments: Exam Number: [id number] LEFT DIAGNOSTIC DIGITAL MAMMOGRAM CLINICAL INFORMATIONAbnormal mammogram. [...] mammograms werealso examined with computer-aided detection software ([employer], [employer] Reported By: DALLIN SAN M.D. 26-Uda-42310:05 [facility] Report See Note (Normal) Comments: Exam Number: [id number] BILATERAL DIGITAL SCREENING MAMMOGRAM COMPARISONApril 2005. MLO [...] The mammogramswere also examined with computer-aided detection software([employer] Reported By: YORDAN HILL M.D. :05 SPINE,LUMBAR (ROUTINE) Radiology Report See Note (Normal) Comments: Exam Number: [id number] MRI LUMBAR SPINE REASON FOR EXAMPersistent low [...] Report See Note (Normal) Comments: Exam Number: [id number] DEXA BONE DENSITY STUDY Done for osteopenia, also there is a history of Evista therapy. COMPARISON STUDIESDecemb2004. The study is performed using a Hologic [...] L5 onS1. Reported By: YORDAN HILL M.D. 6-Sut-981705:13 Urinalysis, Office (92380) UA - BILIRUBIN Negative (Normal) UA - [...] PHOS 3.1 mg/dL (Normal) Range: 2.5-4.9 :52 PTH,[id number] PTH,Intact 77 pg/mL (Abnormal) Range: 12-65 :52 VITD 1,25 35211 55.1 pg/mL (Normal) Range: 15.9-55.6 Comments: Performed At: [address] [id number] At: [address] [id number] 08-Ieq-271351:17 CHEST, PA AND LATERAL (MT) Radiology Report See Note (Normal) Comments: Exam Number: [id number] PA AND LATERAL CHEST HISTORYFollow up pneumothorax. [...] T PROT 6.6 g/dL (Normal) Range: 6.4-8.2 44-Yol-341103:40 CULTURE, URINE URINE CULTURE See Note {CFU/mL} (Normal) Comments: COLONY COUNT 1000-10,000 ORGANISM 1: MIXED GRAM POS & NEG ORGANISMS :39 L/S SPINE,MIN 4 VIEWS (MT) Radiology Report See Note (Normal) Comments: Exam Number: [id number] FIVE VIEW LUMBAR SPINE, AP, LATERAL, BOTH OBLIQUES, AND A ROARQ-JSBEJ4-I5. HISTORYBeing done for low back pain. FINDINGSThere [...] correlation needed. Reported By: BRETT REYNA M.D. 74-Qsp-535201:23 BMP BUN 8 mg/dL (Normal) Range: 7-18 BUN/CRE 13.3 {RATIO} (Normal) Range: 10-20 CA 9.0 mg/dL (Normal) Range: 8.5-10.1 CL 103 mmol/L (Normal) Range: 98-107 CO2 28.1 mmol/L (Normal) Range: 22.0-29.0 CREAT,SERUM 0.6 mg/dL (Normal) Range: 0.6-1.0 GAP 7 (Normal) Range: 5-15 GLU 94 mg/dL (Normal) Range: 70-110 K 3.8 mmol/L (Normal) Range: 3.5-5.1 NA 138 mmol/L (Normal) Range: 136-145 :00 CULTURE, URINE URINE CULTURE See Note {CFU/mL} [...] 6676 11 {IU/mL} (Normal) Range: 0-34 2:40 :40 PTH,[id number] PTH,Intact 45 pg/mL (Normal) Range: 12-65 :40 VIT D,25 71741 88.1 ng/mL (Normal) Range: 32.0-100.0 Comments: Recent studies consider the lower limit of 32.0 ng/mL to marquita threshold for optimal health.Carlos BW. J Nutr. 2004;135(2):317-22. :40 VITD 1,25 38480 73.8 pg/mL (Abnormal) Range: 15.9-55.6 Comments: Performed At: [address] [id number] At: [facility] Whcdcr[address] [place], [place] [id number] :39 LIPID CHOL 182 mg/dL (Normal) Comments: <200 [...] mg/dL VLDL 11 mg/dL (Normal) Range: 5-40 :39 LIVER ALB 4.0 g/dL (Normal) Range: 3.4-5.0 ALK P 85 U/L (Normal) Range: 50-136 ALT 37 [iU]/L (Normal) Range: 30-65 AST 18 U/L (Normal) Range: 15-37 D BILI 0.14 mg/dL (Normal) Range: 0.00-0.30 T BILI 0.67 mg/dL (Normal) Range: 0.00-1.00 T PROT 7.6 g/dL (Normal) Range: 6.4-8.2 :34 CALCULI [id number] CA OXAL DIHYDR 35 % (Normal) CA OXAL MONOHYD 15 % (Normal) CA PHOSPHATE 50 % (Normal) COLOR Archuleta (Normal) Comment Comment (Normal) Comments: Percentage (Represents the % composition) COMMENT Comment (Normal) Comments: Physician questions regarding Calculi Analysis contactLabCo at: [phone].Performed At: [address] [id number] NIDUS SeeNote (Normal) Comments: Result: No Nidus visualized PHOTO Comment (Normal) Comments: Photograph will follow under separate cover. SIZE Comment (Normal) Comments: Specimens received as a mixture of whole stones andfragments. WEIGHT 25.0 mg (Normal) :25 BMP Comments: COMMENTS: PAT FOR OR 01/01/07 [...] 3.5-5.1 NA 137 mmol/L (Normal) Range: 136-145 :25 CBC Comments: COMMENTS: PAT FOR OR 01/01/07 [...] GLU 2 HR GLU GTT-2 HOUR from 0504:V42394A. Range: 70-120 :50 GLU GTT-1 HOUR 176 mg/dL (Abnormal) Comments: 2HR GTT GLU 1 HR GLU GTT-1 HOUR from 0504:N56616M. Range: 120-170 :24 GLU GTT-30 min. 145 mg/dL (Normal) Comments: 2HR GTT GLU 1/2 HR GLU GTT-30 min. from 0504:V68554X. Range: 110-170 :50 GLU GTT-FASTING 73 mg/dL (Normal) Comments: 2HR GTT FASTING GLU GTT-FASTING from 4:H09446U. Range: 70-110 Comments: GLUCOSE TOLERANCE TEST Reference Interval Non- Adults Fasting 70 - 110 30 minutes 110 - 170 1 hour 120 - 170 2 hour 70 - 120 3 hour 70 - 110 4 hour 70 - 110 5 hour 70 - 110 15-Euq-197088:36 CULTURE, URINE URINE CULTURE See Note {CFU/mL} [...] $$$ >=256 R TRIMETHOPRIM/SULFAMETHOXAZ $$ <=10 S 62-Trv-826502:36 ROUTINE UA BILIRUBIN URINE SeeNote (Normal) Comments: [...] 0.2 EU/dl (Normal) Range: 0.2 - 1.0 79-Hdh-126871:00 CULTURE, URINE URINE CULTURE See Note {CFU/mL} [...] 80,000-100,000 ORGANISM 1: MIXED GRAM POSITIVE ORGANISMS 5-Tbh-308413:25 CULTURE, URINE Comments: Precautions*: NOT APPLICABLE URINE [...] COMMENTS: NOWPrecautions*: NOT APPLICABLE 45 Range: 2.5-4.9 5-Drg-920054:45 PTH,[id number] Comments: COMMENTS: NOWPrecautions*: NOT APPLICABLE PTH,Intact 31 pg/mL (Normal) Range: 12-65 Comments: Performed At: [facility] [place], [place] [id number] 1-Svh-082719:30 CALCULI [id number] Comments: COMMENTS: STONE ANALYSISPrecautions*: NOT APPLICABLE CA OXAL DIHYDR 55 % (Normal) CA OXAL MONOHYD 10 % (Normal) CA PHOSPHATE 35 % (Normal) COLOR Archuleta (Normal) Comment Comment (Normal) Comments: Percentage (Represents the % composition) COMMENT Comment (Normal) Comments: Physician questions regarding Calculi Analysis contactLabCo at: [phone].Performed At: [address] [id number] NIDUS SeeNote (Normal) Comments: Result: No Nidus [...] T PROT 5.9 g/dL (Abnormal) Range: 6.4-8.2 4-Cgz-036087:00 COMPLETE UA Comments: COMMENTS: ROOM 9Precautions*: NOT [...] (Normal) Range: 0-5 Comments: Result: 0-5 SEEN 9-Kdp-644111:00 CULTURE, URINE Comments: COMMENTS: ROOM 9Precautions*: NOT [...] 11.6-14.6 WBC 7.9 K/mm3 (Normal) Range: 4.4-11.0 0-Cel-740697:20 BMP Comments: Precautions*: NOT APPLICABLE BUN 14 [...] 3.5-5.1 NA 137 mmol/L (Normal) Range: 136-145 6-Ipv-808509:20 CBCD Comments: Precautions*: NOT APPLICABLE BASO% 0.1 [...] 11.6-14.6 WBC 12.4 K/mm3 (Abnormal) Range: 4.4-11.0 8-Pjv-533791:20 COMPLETE UA Comments: Precautions*: NOT APPLICABLE BACTERIA [...] (Normal) Range: 0-5 Comments: Result: 0-5 SEEN 32-Lth-682758:52 Urinalysis, Office (10062) UA - BILIRUBIN Negative (Normal) UA - BLOOD Hemolyzed Large (Normal) UA - GLUCOSE Negative (Normal) UA - KETONES Negative mg/dL (Normal) UA - LEUKOCYTE ESTERASE Large (Normal) UA - NITRITE Positive (Normal) UA - PH 5.0 (Normal) UA - PROTEIN 30 mg/dL (Normal) UA - SPECIFIC GRAVITY 1.020 (Normal) URINE UROBILINGN RUDDY TIMED 2 mg/dL (Normal) 25-Ssl-315511:30 CULTURE, URINE URINE CULTURE See Note {CFU/mL} [...] $$$ 128 R TRIMETHOPRIM/SULFAMETHOXAZ $$ <=10 S 08-Vss-001274:15 MANDI-D 518055 MANDI-DIRECT 23 U/mL (Normal) Range: 0-99 Comments: Negative <100 Equivocal 100 - 120 Positive >120Performed At: [facility]SabCtyesha JosephUeacoi[address] [place], [place] [id number] :15 B12/FOLATES 810 FOLATES,S 2013 > 24.0 ng/mL [...] 5.6 K/mm3 (Normal) Range: 4.4-11.0 :15 CELIAC [id number] ANTIGLIADIN IGA <1 U/mL (Normal) Range: 0-4 [...] Fatigue Planned Observations CBC W/AUTO DIFF WBC (14596)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 On: 5-Lpf-980932:36 Request MICROALBUMIN: CREATININE RATIO (60084) AND (41820)Indication: Abnormal glucose tolerance test On: 8-Elq-757137:22 Request METABOLIC PANEL, COMPREHENSIVE (72354)Indication: Abnormal glucose tolerance test On: :22 Request CALCIUM SERUM (68173)Indication: Hypercalcemia On: :13 Request PARATHORMONE (25403)Indication: Hypercalcemia On: :13 Request Calcium Serum (98401)Indication: Hypercalcemia On: 92-Elu-440718:07 Request METABOLIC PANEL, COMPREHENSIVE (89285)Indication: Abnormal glucose tolerance test On: : Request VITAMIN B-12 (CYANOCOBALAMIN) (92107)Indication: Vitamin B12 deficiency (dietary) anemia On: : Request MICROALBUMIN: CREATININE RATIO (51454) AND (33521)Indication: Abnormal glucose tolerance test On: : Request LIPID PANEL (74810)Indication: Other hyperlipidemia On: : Request Vitamin D Hydroxy (49443)Indication: Vitamin D deficiency, unspecified On: : Request CBC W/AUTO DIFF WBC (17721)Indication: Vitamin B12 deficiency (dietary) anemia On: :25 Request VITAMIN B-12 (CYANOCOBALAMIN) (93941)Indication: Vitamin B12 deficiency (dietary) anemia On: :14 Request MICROALBUMIN: CREATININE RATIO (18260) AND (29768)Indication: Abnormal glucose tolerance test On: :14 Request HGB A1C (32165)Indication: Abnormal glucose tolerance test On: :14 Request CBC (AUTO) (36815)Indication: Calcium nephrolithiasis On: :13 Request Vitamin D Hydroxy (15598)Indication: Vitamin D deficiency, unspecified On: :13 Request LIPID PANEL (07104)Indication: Other hyperlipidemia On: :13 Request METABOLIC PANEL, COMPREHENSIVE (79407)Indication: Other hyperlipidemia On: :13 Request MICROALBUMIN: CREATININE RATIO (72254) AND (22975)Indication: Abnormal glucose tolerance test On: :32 Request Hemoglobin Glyclated (HGB A1C) (57858)Indication: Abnormal glucose tolerance test On: 50-Ktf-57657:32 Request METABOLIC PANEL, COMPREHENSIVE (23482)Indication: Other hyperlipidemia On: :32 Request LIPID PANEL (27520)Indication: Other hyperlipidemia On: :31 Request VITAMIN B-12 (CYANOCOBALAMIN) (47852)Indication: Vitamin B12 deficiency (dietary) anemia On: :31 Request CBC W/AUTO DIFF WBC (60034)Indication: Vitamin B12 deficiency (dietary) anemia On: :31 Request VITAMIN B-12 (CYANOCOBALAMIN) (81176)Indication: Vitamin B12 deficiency (dietary) anemia On: :22 Request LIPID PANEL (22328)Indication: Other hyperlipidemia On: :22 Request METABOLIC PANEL, COMPREHENSIVE (63921)Indication: Abnormal glucose tolerance test On: 93-Wcw-132130:21 Request URINE LOW CULTURE-RUDDY COL COUNT (50254)Indication: Dysuria (Renamed from Difficult or painful urination) On: 43-Tem-867232:54 Request CBC, PLATELETS & AUT DIFF (09759)Indication: Vitamin B12 deficiency (dietary) anemia On: 0-Bjm-753311:42 Request VITAMIN B-12 (CYANOCOBALAMIN) (26907)Indication: Vitamin B12 deficiency (dietary) anemia On: 1-Yaq-473137:42 Request Vitamin D Hydroxy (39215)Indication: Vitamin D deficiency, unspecified On: 7-Bli-339546:41 Request LIPID PANEL (23695)Indication: Other hyperlipidemia On: 0-Lop-795237:41 Request METABOLIC PANEL, COMPREHENSIVE (53925)Indication: Other hyperlipidemia On: 1-Wkq-002700:41 Request METABOLIC PANEL, COMPREHENSIVE (65264)Indication: Osteoporosis (Renamed from OP (osteoporosis)) On: 07-Mqg-360330:41 Request UPEP (04569)Indication: Osteoporosis (Renamed from OP (osteoporosis)) On: 38-Pnn-683520:28 Request SPEP (83754)Indication: Osteoporosis (Renamed from OP (osteoporosis)) On: 34-Shz-646311:28 Request TSH (70283)Indication: Fluid retention On: 18-Pju-263388:43 Request Vitamin D Hydroxy (95382)Indication: Vitamin D deficiency, unspecified On: :29 Request VITAMIN B-12 (CYANOCOBALAMIN) (51741)Indication: Vitamin B12 deficiency (dietary) anemia On: :29 Request CBC W/AUTO DIFF WBC (62194)Indication: Vitamin B12 deficiency (dietary) anemia On: :29 Request METABOLIC PANEL, COMPREHENSIVE (84716)Indication: Fluid retention On: :29 Request URINE LOW CULTURE (RUDDY COL COUNT) (37218)Indication: Hematuria On: :11 Request URINE LOW CULTURE-RUDDY COL COUNT (49190)Indication: Hematuria On: :56 Request URINALYSIS, W/ MICRO (80047)Indication: Hematuria On: :54 Request Parathyroid Hormone-related Peptide (PTH-rP) (44191)Indication: Fatigue On: 05-Ikk-356536:17 Request VITAMIN B-12 (CYANOCOBALAMIN) (49222)Indication: Vitamin B12 deficiency (dietary) anemia On: 9-Ejl-325169:03 Request METABOLIC PANEL, COMPREHENSIVE (87050)Indication: Abnormal glucose tolerance test On: 1-Vwx-716510:03 Request CBC WITH MANUAL DIFF (01777)Indication: Vitamin B12 deficiency (dietary) anemia On: 5-Ueq-383634:02 Request Vitamin D Hydroxy (10609)Indication: Vitamin D deficiency, unspecified On: 9-Elo-077131:02 Request LIPID PANEL (80795)Indication: Other hyperlipidemia On: :02 Request CREATININE BLOOD (75428)Indication: Other hyperlipidemia On: 5-Fhh-588534:47 Request Vitamin D Hydroxy (04285)Indication: Vitamin D deficiency, unspecified On: :37 Request VITAMIN B-12 (CYANOCOBALAMIN) (38370)Indication: Vitamin B12 deficiency (dietary) anemia On: :37 Request METABOLIC PANEL, COMPREHENSIVE (33567)Indication: Osteopenia On: :28 Request TSH (16490)Indication: Osteopenia On: :28 Request CBC WITH MANUAL DIFF (24064)Indication: Vitamin B12 deficiency (dietary) anemia On: :27 Request VITAMIN B-12 (CYANOCOBALAMIN) (31157)Indication: Vitamin B12 deficiency (dietary) anemia On: : Request LIPID PANEL (29028)Indication: Other and unspecified hyperlipidemia On: : Request Vitamin D Hydroxy (51891)Indication: Vitamin D deficiency, unspecified On: : Request METABOLIC PANEL, COMPREHENSIVE (96887)Indication: Palpitations On: :32 Request CBC WITH MANUAL DIFF (39347)Indication: Vitamin B12 deficiency (dietary) anemia On: : Request Vitamin D Hydroxy (18351)Indication: Vitamin D deficiency, unspecified On: : Request LIPID PANEL (98246)Indication: Other hyperlipidemia On: : Request VITAMIN B-12 (CYANOCOBALAMIN) (90091)Indication: Vitamin B12 deficiency (dietary) anemia On: : Request URINE LOW CULTURE-IDENTIFICATN (85576)Indication: recurrent uti On: : Request Urinalysis, Office (68916)Indication: Cystitis, acute On: :57 Request VITAMIN B-12 (CYANOCOBALAMIN) (12325)Indication: Vitamin D deficiency, unspecified On: :30 Request CALCIFEDIOL (00229)Indication: Vitamin D deficiency, unspecified On: :30 Request URINALYSIS (80850)Indication: Vitamin D deficiency, unspecified On: :30 Request TSH (THYROID STIMULATING HORMONE) (13559)Indication: Vitamin D deficiency, unspecified On: :30 Request CBC, PLATELETS & AUT DIFF (02253)Indication: Vitamin D deficiency, unspecified On: :30 Request METABOLIC PANEL, COMPREHENSIVE (83075)Indication: Vitamin D deficiency, unspecified On: :30 Request LIPID PANEL (05671)Indication: Other hyperlipidemia On: :30 Request URINALYSIS W/O MICRO (56151)Indication: Low back pain On: : Request Creatine (90868)Indication: Low back pain On: 48-Cah-884947:13 Request BUN (Blood Urea Nitrogen) (70288)Indication: Low back pain On: 47-Yok-539311:13 Request Creatine (58540)Indication: Low back pain On: 84-Xlx-613085:42 Request Creatine (95225)Indication: Unspecified Diagnosis On: 93-Acm-303815:34 Request LIPID PANEL (96408)Indication: Other and unspecified hyperlipidemia On: 81-Whm-399238:22 Request HEPATIC FUNCTION PANEL (10934)Indication: Other and unspecified hyperlipidemia On: 87-Knw-889757:22 Request Vitamin D Hydroxy (93711)Indication: Vitamin D deficiency, unspecified On: 71-Hca-860829:11 Request VITAMIN B-12 (CYANOCOBALAMIN) (72891)Indication: methylmalonic acid elevatin On: 04-Nyv-625443:11 Request Methylmalonic acid, serum 59937Naoyxyxebn: Fatigue On: 88-Pcn-385674:08 Request VITAMIN B-12 (CYANOCOBALAMIN) (81257)Indication: Fatigue On: 68-Ygs-235114:08 Request TSH (12747)Indication: Palpitations On: 30-Udx-072049:06 Request METABOLIC PANEL, COMPREHENSIVE (35553)Indication: Palpitations On: 47-Yca-675468:06 Request CBC WITH MANUAL DIFF (88462)Indication: Palpitations On: 65-Etz-315455:06 Request LIPID PANEL (41987)Indication: Other and unspecified hyperlipidemia On: 45-Gio-256625:05 Request Vitamin D Hydroxy (39314)Indication: Osteopenia On: 23-Afk-479690:05 Request Vitamin D Hydroxy (99520)Indication: Vitamin D deficiency, unspecified On: 5-Pgl-606310:10 Request METABOLIC PANEL, COMPREHENSIVE (36078)Indication: Other and unspecified hyperlipidemia On: :26 Request LIPID PANEL (73435)Indication: Other and unspecified hyperlipidemia On: :26 Request PARATHORMONE (90720)Indication: Osteopenia On: 91-Lgn-981647:15 Request Vitamin D Hydroxy (69312)Indication: Vitamin D deficiency, unspecified On: 79-Wrc-691754:15 Request LIPID PANEL (10227)Indication: Other and unspecified hyperlipidemia On: 05-Kyt-569150:01 Request CALCIUM SERUM (30937)Indication: Osteopenia On: 70-Zqb-052671:00 Request TSH (54014)Indication: Osteopenia On: 08-Teg-523711:00 Request PARATHORMONE (69983)Indication: Osteopenia On: 12-Vlw-812305:00 Request Vitamin D Hydroxy (77849)Indication: Osteopenia On: 09-Tea-225352:58 Request FECAL OCCULT HGB ASSAY- tubes sent home (97957)Indication: Well woman exam with routine gynecological exam On: 97-Twd-730862:39 Request OCCULT BLOOD FECES SCREEN- card done in office (07053)Indication: Well woman exam with routine gynecological exam On: :39 Request Thin prep Pap (34378)Indication: Well woman exam with routine gynecological exam On: 31-Wxm-435376:39 Request Comments: vaginal cuff LIPID PANEL (69150)Indication: Other and unspecified hyperlipidemia On: 2-Vjy-711562:58 Request HEPATIC FUNCTION PANEL (83513)Indication: Other and unspecified hyperlipidemia On: 2-Sqf-985525:58 Request CALCIUM SERUM (62209)Indication: Osteopenia On: 1-Kuj-890625:58 Request PHOSPHORUS (48861)Indication: Osteopenia On: 2-Anx-943376:58 Request PARATHORMONE (89928)Indication: Osteopenia On: 8-Wwu-375784:58 Request VITAMIN D, 1, 25-DIHYDROXY (19439)Indication: Osteopenia On: 7-Rjy-633317:58 Request URINE LOW CULTURE-RUDDY COL COUNT (46071)Indication: Dysuria On: 68-Fzx-898807:35 Request Urinalysis, Office (62914)Indication: Dysuria On: 14-Wxj-094243:35 Request VITAMIN D, 1, 25-DIHYDROXY (90850)Indication: Vitamin D deficiency, unspecified On: 7-Dhy-324405:01 Request URINE LOW CULTURE-IDENTIFICATN (30250)Indication: Dysuria On: 65-Xrr-922726:06 Request Celiac Disease Antibody Profile (06980) x3 & (07640) X2- gliadin IgA, IgG and reticulin IgA, IgG and tissue transglutaminase IgA.Indication: Abdominal pain, acute, generalized On: 04-Vdt-150424:38 Request MANDI (ANTINUCLEAR ANTIBODY) (61883)Indication: Fatigue On: :37 Request C-REACTIVE PROTEIN (97606)Indication: Fatigue On: :37 Request CBC (AUTO) (92460)Indication: Fatigue On: :37 Request Folate (63848)Indication: Fatigue On: :37 Request METABOLIC PANEL, COMPREHENSIVE (83070)Indication: Fatigue On: :37 Request RHEUMATOID FACTOR-QUANT (32659)Indication: Fatigue On: :37 Request SED RATE ERYTHROCYTE (68092)Indication: Fatigue On: :37 Request TSH (00629)Indication: Fatigue On: :37 Request VITAMIN B-12 (CYANOCOBALAMIN) (37335)Indication: Fatigue On: :37 Request Planned Encounters Medical; [facility] Pre Wellness Exam (DF Nurse) - On: 15-Aug-2018 8:00 [facility] NURSE, DF Medical; [facility] Wellness Exam (Doctor) - On: 29-Aug-2018 8:45 [facility] Fast DO, Audrey A Fast DO, Audrey A Planned Procedures XR HEEL LEFT (71952)By: Thanh CASTRO, On: 29-Apr-2018 Intent Audrey A Fast DO, Audrey A Flu Vaccine (Quadrivalent) 60928Jt: On: 29-Apr-2018 Intent Thanh DO, Audrey A Fast DO, Audrey A Comments: Lot: [id number]: 02/08/19Site: L dltd, IMDose prefilled syringegiven by: Jovon reviewed and ABN signed Spirometry (91450)By: Geovanna CASTRO, On: 16-Jan-2018 Intent Minoo Comments: #2-mild obstruction Radiology - Chest- PA and LatBy: On: 16-Jan-2018 Intent Minoo Austin DO Aerosol Treatment (37128)By: Geovanna On: 16-Jan-2018 Minoo Jackson DO Comments: much more a/e no wheeze jose uch better Solu- Medrol Injection, 125mg On: 16-Jan-2018 Intent (J2930)By: Minoo Austin DO Comments: solumedrol 125mg injectionlot: [id number]: GMpt tolerated wellAD EQUIPMENT LEAD Spirometry (27170)By: Geovanna CASTRO, On: 16-Jan-2018 Intent Minoo Comments: mod severe obstruction #1 Breast Ultrasound - LeftBy: Thanh CASTRO, On: 09-Oct-2017 Intent Audrey Law DO Audrey A MRI OF BRAIN WITH AND WITHOUT On: 10-Sep-2017 Intent CONTRAST (64986)By: Audrey Law DO, DO, Audrey A SCREENING DIGITAL TOMOSYNTHESIS OF On: 10-Sep-2017 Intent BREAST (34606)By: Audrey Law DO, DO, Audrey A ELECTROCARDIOGRAM, COMPLETE (ECG) On: 10-Sep-2017 Intent (97517)By: Audrey Law DO, DO, Comments: ekg showed normal sinus rhythym, normal axis, no acute st/t wave changes sinus hyun Audrey A Solu -Medrol Injection, 125 mg On: 08-Apr-2017 Intent (J2930)By: Audrey Law DO, DO, Audrey A Spirometry (75566)By: Thanh CASTRO, On: 21-Sep-2016 Intent Audrey Law DO Audrey A Comments: good effort and curve mod obstruction Aerosol Treatment (69670)By: Thanh On: 20-Aug-2016 Audrey Jackson DO, DO Audrey A Comments: with albuterol Phenergan Injection, up to 50 mg On: 20-Aug-2016 Intent (J2550)By: Audrey Law DO, DO, Comments: lot:[id number]: 03/28site/route: LGM/IMamt: 25mgVIS signed when applicableBITA Akbar A Radiology - Chest- PA and LatBy: On: 24-Jul-2016 Intent Audrey Law DO, DO, Audrey A DEXA SCAN AXIAL SKELETON (73691)By: On: 08-May-2016 Intent Thanh CASTRO Audreysue Law DO, Audrey A Comments: end jul MAMMOGRAM, SCREENING, BOTH BREAST On: 08-May-2016 Intent (20236)By: Audrey Law DO, DO, Audrey A Flu Vaccine (Quadrivalent) 58763Is: On: 08-May-2016 Intent Fast DO, Audrey A Fast DO, Audrey A Comments: Lot #:[id number] date:02/08/17mount given:0.5mlRoute: IMSite given: left deltoidGiven by: NEGRITA Gavin ADMINISTRATION OF INFLUENZA VIRUS On: 08-May-2016 Intent VACCINE (G0008)By: Fast DO, Audrey A Fast DO, Audrey A PFT - CompleteBy: Fast DO, Audrey A On: 17-Apr-2016 Intent Fast DO, Audrey A MRI - Brain (IV Contrast Needed)By: On: 31-Oct-2015 Intent Fast DO, Audrey A Fast DO, Audrey A MRI - BrainBy: Thanh CASTRO Audrey A Fast On: 05-Oct-2015 Intent , Audrey A Solu -Medrol Injection, 125 mg On: 18-Aug-2015 Intent (J2930)By: Michelle Tyson MD Radiology - ChestBy: Marbella METZ, On: 18-Aug-2015 Intent Michelle Gerber Flu Vaccine (Quadrivalent) 72075Zo: On: 27-May-2015 Intent Thanh CASTRO, Audrey A Fast DO, Audrey A Comments: lot [id number]: 02/09/2016site/route L agnieszka, IMamt 0.5mlVIS and ABN signed when applicableChelsea, CMAFM4 ADMINISTRATION OF INFLUENZA VIRUS On: 27-May-2015 Intent VACCINE (G0008)By: Gurdeep Law DOa A Fast DO, Audrey A 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 On: 23-Nov-2014 Intent (44687)By: Ashley Gan CNP COMP EYE EXAMINATION, ESTAB PATIENT On: 18-Oct-2014 Intent (99905)By: Ashley Gan CNP MAMMOGRAM, SCREENING, BOTH BREAST On: 10-Sep-2014 Intent (70120)By: Audrey Law DO Fast DO, Audrey A Radiology - ChestBy: Marbella METZ, On: 29-Jul-2014 Intent Michelle Gerber ELECTROCARDIOGRAM, COMPLETE (ECG) On: 29-Jul-2014 Intent (84225)By: Michelle Tyson MD Comments: see scanned document of test done to see results reviewed today with patient Prevnar 13 (94415)By: Fast DO, On: 21-Jun-2014 Intent Audrey A Fast DO, Audrey A Comments: Lot #:[id number] date:10/2015Amount given:0.5mlRoute: IMSite given: left deltoidGiven by: NEGRITA Gavin DEXA SCAN AXIAL SKELETON (69903)By: On: 21-Jun-2014 Intent Fast DO, Audrey A Fast DO, Audrey A IMMUNIZ ADMNIN, 1 VAC, SNGL/COMBO On: 09-Jun-2014 Intent (04215)By: Fast DO, Audrey A Fast DO, Comments: lot:[id number]:02/08/2015dose:0.5mLRoute: IMlocation: L armgiven by: josselyn velázquez Audrey A FLU VAC, SPLIT, >3 YEARS, INTRAMUSC On: 09-Jun-2014 Intent (11832)By: Christine Palma MRI - BrainBy: Fast DO, Audrey A Fast On: 23-Mar-2014 Intent DO, Audrey A Radiology - Cervical SpineBy: Fast On: 29-Dec-2013 Intent DO, Audrey A Fast DO, Audrey A CT - ChestBy: Fast DO, Audrey A Fast On: 29-Dec-2013 Intent DO, Audrey A Eprescribed prescriptions ([id number])By: On: 07-Sep-2013 Intent Juliana Shook MAMMOGRAM, SCREENING, BOTH BREASTS On: 20-Aug-2013 Intent ([id number])By: Fast DO, Audrey A Fast DO, Audrey A Eprescribed prescriptions ([id number])By: On: 20-Aug-2013 Intent Juliana Shook PNEUM VAC ADLT/IMUMNOSPR, SBC/INTRM On: 25-May-2013 Intent ([id number])By: Fast DO, Audrey A Fast DO, Comments: Lot #[id number]-[id number] arm, dltd, IMDose-prefilled syringegiven by:STARR Renteria signed Audrey A Pap Smear, Medicare ([id number])By: On: 25-May-2013 Intent Juliana Shook Pelvic and Breast, Medicare On: 25-May-2013 Intent ([id number])By: Juliana Shook ADMINISTRATION OF INFLUENZA VIRUS On: 14-May-2013 Intent VACCINE (G0008)By: Geovanna CASTRO, Comments: Lot #[id number]-[id number] dltd, IMDose prefilled syringegiven by:STARR Renteria and ABN signed Minoo FLU VAC, SPLIT, >3 YEARS, INTRAMUSC On: 14-May-2013 Intent ([id number])By: Minoo Austin DO Eprescribed prescriptions ([id number])By: On: 06-Mar-2013 Intent Juliana Shook B 12 Injection, 1000 mcg (J3420)By: On: 06-Mar-2013 Intent Juliana Shook 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 On: 20-Feb-2013 Intent ([id number])By: Virginie Ambriz LPN MRI - BrainBy: Fast [...] THER/PROPH/DIAG IV INF, INIT On: 22-Aug-2012 Intent ([id number])By: Ashley Gan CNP INFUSION, NORMAL SALINE SOLUTION , On: 22-Aug-2012 Intent 250 CC ([id number])By: Ashley Gan CNP Rocephon Injection, 1 Gm (J0696)By: On: 22-Aug-2012 Intent Ashley Gan CNP B 12 Injection, 1000 mcg (J3420)By: On: 01-Jul-2012 Intent Fast DO, Audrey A Fast DO, Audrey A Comments: Lot:[id number]:Dose:1MLRoute:IMSite:L armGiven By:DEBRA Eprescribed prescriptions ([id number])By: On: 01-Jul-2012 Intent Juliana Shook FLU VAC, SPLIT, >3 YEARS, INTRAMUSC On: 27-May-2012 Intent ([id number])By: Juliana Shook Comments: Lot:[id number]:6.30.13Dose:prefilledRoute:IMSite:L DltdGiven By:AUDREY signed MAMMOGRAM, SCREENING, BOTH BREASTS On: 27-May-2012 Intent ([id number])By: Audrey Law DO, DO, Comments: mid jul Audrey A ADMINISTRATION OF INFLUENZA VIRUS On: 27-May-2012 Intent VACCINE (G0008)By: Juliana Shook Toradol Injection, 30 mg (J1885)By: On: 09-Jan-2012 Intent Ciesa Ashley RAMIREZ Comments: 1 ml given im lt hip lot [id number] exp 08/25 Radiology - Lumbar SpineBy: Ciesa On: 09-Jan-2012 Intent Ashley RAMIREZ DXA, BONE DENSITY, AXIAL SKELETON On: 18-Dec-2011 Intent ([id number])By: Audrey Law DO, DO, Comments: due in january Audrey A TDAP VACCINE >7 IM ([id number])By: On: 18-Dec-2011 Intent Juliana Shook Comments: received at work 11/2011 MAMMOGRAM, SCREENING, BOTH BREASTS On: 03-Jul-2011 Intent ([id number])By: Gurdeep Law DOa Sue Fast DO, Audrey A CT - Abdomen & Pelvis Stone On: 03-Jul-2011 Intent ProtocolBy: Thanh CASTRO, Audrey A Fast DO, Audrey A FLU VAC, SPLIT, >3 YEARS, INTRAMUSC On: 03-Jul-2011 Intent ([id number])By: Juliana Shook Comments: received at work 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 On: 11-May-2011 Intent ([id number])By: Virginie Ambriz LPN MRI - Thoracic Spine (IV Contrast On: 17-May-2010 Intent Needed)By: Juliana Shook MAMMOGRAM, SCREENING, BOTH BREASTS On: 17-May-2010 Intent ([id number])By: Gurdeep Law DOa Sue Law DO, Comments: dec Audrey A Radiology - Lumbar SpineBy: Ciesa On: 10-May-2010 Intent Ashley RAMIREZ THER/PROPH/DIAG INJ, SC/IM On: 10-May-2010 Intent ([id number])By: Ashley Gan CNP INJECTION, VITAMIN B-12 On: 10-May-2010 Intent CYANOCOBALAMIN, UP TO 1000 MCG (Special Coverage Instructions Apply. See CIM: 45-4 and MCM: 2049) ([id number])By: Ashley Gan CNP B 12 Injection, 1000 mcg (J3420)By: On: 22-Mar-2010 Intent Geovanna Call B 12 Injection, 1000 mcg (J3420)By: On: 07-Feb-2010 Intent Fast DO, Audrey A Fast DO, Audrey A Comments: Lot #[id number]/12Site-Right deltoidDose- 1 mlgiven by:ALMA ROSA DXA, BONE DENSITY, AXIAL SKELETON On: 09-Nov-2009 Intent ([id number])By: Fast DO, Audrey A Fast DO, Audrey A MAMMOGRAM, SCREENING, BOTH BREASTS On: 19-May-2009 Intent ([id number])By: Fast DO, Audrey A Fast DO, Audrey A Zbnweccwi-Nrn-Rzase (03887)By: Thanh On: 07-Sep-2008 Intent DO, Audrey A Fast DO, Audrey A Radiology - ChestBy: Fast DO, Audrey On: 07-Sep-2008 Intent A Fast DO, Audrey A Comments: pa and lat Pulse Oximetry ([id number])By: Malik RAMIREZ, On: 27-Jul-2008 Intent Adelaida Aerosol Treatment ([id number])By: Malik On: 27-Jul-2008 Intent Ashley RAMIREZ PHYSICAL THERAPY EVALUATION On: 29-Jun-2008 Intent ([id number])By: Ashley Gan CNP Pulse Oximetry ([id number])By: Malik RAMIREZ, On: 14-Jan-2008 Intent Adelaida Aerosol Treatment ([id number])By: Malik On: 14-Jan-2008 Intent Ashley RAMIREZ MAMMOGRAM, SCREENING, BOTH BREASTS On: 17-Dec-2007 Intent ([id number])By: Thanh DO Audrey A Fast DO, Audrey A MRI - Lumbar SpineBy: Fast DO, Audrey On: 17-Dec-2007 Intent A Fast DO, Audrey A Comments: hx of recent multiple trauma-osteoporosis-- ddd and significant pain DXA, BONE DENSITY, AXIAL SKELETON On: 17-Dec-2007 Intent ([id number])By: Fast DO, Audrey A Fast DO, Audrey A EKG (13723)By: Juliana Shook On: 17-Dec-2007 Intent Comments: ekg showed normal sinus rhythym, normal axis, no acute st/t wave changes with pacs Spirometry ([id number])By: Thanh CASTRO, On: 04-Sep-2007 Intent Audrey A Fast DO, Audrey A Comments: good effort and curve - mild obstruction Radiology - ChestBy: IRA RAMIREZ, On: 22-Jul-2006 Intent KRISHAN Ear Irrigation ([id number])By: IRA On: 22-Jul-2006 Intent KRISHAN RAMIREZ Planned Medications INFUSION, NORMAL SALINE SOLUTION , 250 CC Ordered: 22-Aug-2012 Pending Ciesa ASHLEY, Adelaida INJECTION, CEFTRIAXONE SODIUM, PER 250 MG Ordered: 22-Aug-2012 Pending Ciesa SEPHORA PRODUCT CONSULTANT, Adelaida INJECTION, KETOROLAC TROMETHAMINE, PER 15 MG Ordered: 09-Jan-2012 Pending Ciesa SEPHORA PRODUCT CONSULTANT, Adelaida INJECTION, METHYLPREDNISOLONE SODIUM SUCCINATE, UP TO 125 MG Ordered: 18-Aug-2015 Pending Michelle Tyson MD INJECTION, METHYLPREDNISOLONE SODIUM SUCCINATE, UP TO 125 [...] unspecified hyperlipidemia : DISCONTINUED - LIPID PANEL (48644) Indication: Other and unspecified hyperlipidemia Moderate persistent [...] few days- feeling worse again- was in [place] 3 weeks ago maybe this caused- no [...] - had walked that morning at the [facility]- she not walk barefoot has been doing [...] 5 [facility]. Sleeps on average 8 hours per night. Nor mal bowel and bladder habits. There are no current emotional problems. screening, colonoscopy ([facility] Dr. Galeana). Note for Physical exam: feels really good- walking 2 miles every morning at the [facility] 5 days a week-- and doing nautilaus [...] Skin lesions: [facility]has [facility]: [facility] [...] up for chronic medical issues: joined [employer] 3 weeks again and going to start walking again- she does ok gerd molina if taking med and does notice signfiicant [...] are no current emotional problems. screening, colonoscopy ([facility] Dr. Galeana). Note for Physica l exam: she is up 5 pounds has started weight lifting 3 times a week at the [employer]- her bp is good- the symbicort was [...] stone- on cipro right now- leaving for [place] next ), has decreased energy level and [...] surgery tomorrow with Dr. Jalil Machado at [facility].- had left stone and stent in [...] The patient does have durable power of commonwealth attorney and living will. The patient has noticed nothing from the geriatic depression scale. 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 Note for [...] (post-aide). Encounter Diagnosis: Annual physical exam (V70.0), [facility] Woman Exam , Medicare (V76.2) (Renamed from [...] armpit- has noticed off and on since - no fever - rdness all gone- and [...] are on paper- had them done at [facility]. Pt is currently on Macrobid for UTI [...] Pt also had a ct abd at [facility]- called for results to be faxed.Encounter [...] - she does twice at week in [employer]- she is back to work 2 half [...] years. Hands also feel stiff with bread. [facility], Dr. Reilly have done work up and [...] [facility] Payers [employer]/MedicareJS MEEKS; sue guarantor
--- OUTSIDE RECORDS SUMMARY | 2018-10-29 16:54 | XMS RPT_ITS | Continuity of Care Document ---
:1945 Author Organization [facility] Address [facility] [facility] [address] [place] [address] Phone Care Team Providers Name Role Phone [...] Oral Tablet 3 (three) Tablet x3days, 2 qddhm6crqv, 1 vzee6zahw for 0 days Quantity: 18 {Tablet} Refills: [...] End : 29-Jul-2014 Inactive Comments:use sparingly ERGOCALCIFEROL, 52154ILEB (Oral Capsule) 1 (one) Capsule q week [...] End : 16-Aug-2006 Inactive OSCAL 500/200 D-3, 413-638LX-IBTO (Oral Tablet) 1 QD for 0 days Refills: 0 Ordered:27-Jul-2008 Luana Granado End : 16-Aug-2006 Inactive KDOMK-WB-WAFZ MAXIMUM STRENGTH, 400-500MG (PO Tab) 1 QD [...] Quantity: 12 {Misc} Refills: 1 Ordered:20-Nov-2012 Long MONUMENT LETTERER, Marielos L Start : 17-May-2010 End : [...] : 21-Sep-2013 End : 15-Feb-2014 Discontinued CALCIUM, 300-918GR-SQPH (Oral Tablet) 1 Daily for 0 days Refills: 0 Ordered:15-Feb-2014 Juliana Shook End : 15-Feb-2014 Discontinued CALTRATE 600+D PLUS, 121-044PK-PISZ (Oral Tablet) 1 1/2 tab qd (600-400 [...] : 23-Nov-2014 End : 13-Dec-2014 Discontinued DRISDOL, 08740OOMW (Oral Capsule) 1 Capsule Weekly for 90 [...] days Quantity: 30 {Capsule_DR} Refills: 3 Ordered:12-Dec-2010 Audrey ATULrosmery Audrey A Start : 12-Dec-2010 End [...] : 18-Apr-2010 Discontinued Comments:This order discontinued per [facility]. PredniSONE 10 MG Oral Tablet 3 (three) [...] MG) End : 29-Dec-2013 Discontinued VITAMIN D, 67328TZUA (Oral Capsule) 1 (one) Capsule twice a week for 0 days Quantity: 24 {Capsule} Refills: 1 Ordered:18-Apr-2010 Mast Esther MONTANO Start : 07-Feb-2010 End : 18-Apr-2010 Discontinued Comments:This order discontinued per [facility]. 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 Past Medical History Name Dates Details [...] 2 Views Result: Comments: See Note; NOTES: [facility] Imaging Services [address] [place] [address] Calcaneus min 2 Views MR#: [id number] Acct: [id number] Name: JS MEEKS Rep #: [id number] : 1945 F 72 From: Malachi Qureshi MD PCP: Audrey Law DO Status: REG CLI Study: Calcaneus min 2 Views Date of Exam: 04/29/18 Exam# [id number] Ordering Dr: Audrey Law DO STUDY: X-RAY [...] Service support , CC: Audrey Law DO Attorney Law Clerk: Signed 19-Nov-2017 Cardiology Visit Report Result: Comments: See Note; NOTES: [facility] [address] [place] [address]. [address] [place] [address] OFFICE VISIT Date of Service: 11/19/17 MR#: [id number] Acct: [id number] Name: JS MEEKS ep #: [id number] : 1945 Provider: Mark Leger MD Age/Sex: 72/F Location: [facility] Status: Signed [facility] Chief Complaint: Follow-up visit. 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 [place] [address] Fax REHABILITATION SERVICES DISCHAR GE SUMMARY MR#: [id number] Acct: [id number] Name: JS MEEKS Rep #: [id number] : 1945 72 From: Vesna Albert PT, Cert. MDT Referring Dr.: Quirino Bueno MD Status: REG R Insurance: [facility] SELF PAY INSURANCE HP - [...] the referral of this patient. Sincerely, Vesna Albetr <Electronically signed by Vesna Albert PT, Cert. MDT> 11/18/17 8840 CC: Quirino Bueno MD; Audrey Law DO JAMAR Signed 22-Oct-2017 Inital Evaluation (1) - PT Result: Comments: See Note; NOTES: [facility] [address] [place] [address]. [address] [place] [address] Fax REHABILITATION SERVICES INITIAL EVALUATION MR#: [id number] Acct: [id number] Name: JS MEEKS Rep #: [id number] : 1945 72 From: Vesna Albert PT, Cert. MDT Referring Dr.: Quirino Bueno MD Status: REG R Insurance: [facility] SELF PAY INSURANCE Patient's Visit [...] ROM. 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 - Subjective Subjective: Work/Leisure: RETIRED. HAS 11 [...] WALKING AND USING WEIGHT MACHINES AT THE [facility] LAST MAY AND THE ONLY THING SHE [...] normal. RECENT X-RAY OF LEFT SHOULDER AT [facility] - PATIENT UNSURE OF RESULTS. NO MRI [...] LUE SLOW AND CAREFULLY. 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 RIGHT UE STRENGTH WFL. [...] to be FAXED BACK to us at [phone] for Medicare purposes. Please let me know [...] Limited Unilateral Result: Comments: See Note; NOTES: [facility] Imaging Services [address] [place] [address] Breast Limited Unilateral MR#: [id number] Acct: [id number] Name: JS MEEKS Rep #: [id number] : 1945 F 71 From: Corey Saldaña MD PCP: Audrey Law DO Status: REG CLI Study: Breast Limited Unilateral Date of Exam: 10/10/17 Exam# [id number] Ordering Dr: Audrey Law DO STUDY: UL [...] Corey Saldaña MD at 13:47 EST Tel [phone], Service support , CC: Audrey Law DO Attorney Law Clerk: Signed 10-Oct-2017 Breast Limited Unilateral Result: Comments: See Note; NOTES: [facility] Imaging Services [address] [place] [address] Breast Limited Unilateral MR#: [id number] Acct: [id number] Name: JS MEEKS Rep #: [id number] : 1945 F 71 From: Corey Saldaña MD PCP: Audrey Law DO Status: REG CLI Study: Breast Limited Unilateral Date of Exam: 10/10/17 Exam# [id number] Ordering Dr: Audrey Law DO STUDY: UL [...] Corey Saldaña MD at 13:47 EST Tel [phone], Service support , CC: Audrey Law DO Attorney Law Clerk: Signed 07-Oct-2017 SCREENING MAMM (CAD), BILAT Result: Comments: See Note; NOTES: [facility] Imaging Services [address] [place] [address] SCREENING MAMM (CAD), BILAT MR#: [id number] Acct: [id number] Name: JS MEEKS Rep #: [id number] : 1945 F 71 From: Corey Saldaña MD PCP: Audrey Law DO Status: REG CLI Study: SCREENING MAMM (CAD), BILAT Date of Exam: 10/07/17 Exam# [id number] Ordering Dr: Audrey Law DO ADDEN DUM by Corey Saldaña MD on 10/09/17 at 0957 HPBI/SCREENING MAMM (CAD), BILAT 10/09/17 1004 Date cc: Audrey Law DO * Signed ADDENDUM by Corey Saldaña MD on 10/09/17 at 0957 ADDENDUM This is an addendum report for BIRADS category. BIRADS Category 0: Addit ional imaging required. Electronically Signed: Corey Saldaña MD at 9:57 EST Tel [phone], Service support , 10/09/17 0957 Date cc: [...] delay biopsy of a clinically suspicious abnormality. [id number] Electronically Signed: Corey Saldaña MD at 10:32 EST Tel [phone], Service support , CC: Audrey Law DO Attorney Law Clerk: Signed 07-Oct-2017 SCREENING MAMM (CAD), BILAT Result: Comments: See Note; NOTES: [facility] Imaging Services [address] [place] [address] SCREENING MAMM (CAD), BILAT MR#: [id number] Acct: [id number] Name: JS MEEKS Rep #: : 1945 F 71 From: Corey Saldaña MD PCP: Audrey Law DO Status: REG CLI Study: SCREENING MAMM (CAD), BILAT Date of Exam: 10/07/17 Exam# [id number] Ordering Dr: Audrey Law DO MAMMO GRAPHY [...] delay biopsy of a clinically suspicious abnormality. [id number] Electronically Signed: Corey Saldaña MD at 10:32 EST Tel [phone], Service support , CC: Audrey Lwa DO Attorney Law Clerk: Signed 23-Sep-2017 TXT - Blood Flow Screening Result: Comments: See Note; NOTES: [facility] Cardiovascular Services [address] [place] [address] 09/23/17 0822 MR#: [id number] Acct: [id number] Name: JS MEEKS Rep #: [id number] : 1945 71 From: Jeet Grijalva MD Attending Dr: Audrey Law DO Status: REG REF Ordering Dr: Date: 09/23/17 Location: [facility] Sex: F C Admitted: Reason For Study: [...] DO Date Dictated: 09/23/17821 Date Transcribed: 09/23/172213 Attorney Law Clerk: Signed 16-Sep-2017 Brain W/WO Contrast Result: Comments: See Note; NOTES: [facility] Imaging Services [address] [place] [address] Brain W/WO Contrast MR#: [id number] Acct: [id number] Name: JS MEEKS Rep #: [id number] : 1945 F 71 From: Gabriela Rhodes PCP: Audrey Law DO Status: REG CLI Study: Brain W/WO Contrast Date of Exam: 09/16/17 Exam# [id number] Ordering Dr: Audrey Law DO STUDY: MRI [...] Service support , CC: Audrey Law DO Attorney Law Clerk: Signed 07-Aug-2016 Bilat Scrn Digital AND CAD Result: Comments: See Note; NOTES: [facility] Imaging Services [address] [place] [address] Verdana 4d Bilat Scrn Digital AND CAD MR#: [id number] Acct: [id number] Name: JS MEEKS Rep #: [id number] : 1945 F 70 From: Corey Saldaña MD PCP: Audrey Law DO Status: REG CLI Study: Bilat Scrn Digital AND CAD Date of Exam: 08/07/16 Exam# [id number] Ordering Dr: Audrey Law MAMMOGRAPHY - BILATERAL [...] significant change since the prior study . [facility]/Bilat Scrn Digital AND CAD IMPRESSION: Stable bilateral screening mammogram. Yearly follow-up mammogram recommended. (A) ASSESSMENT CATEGORY: BIRADS Category 2: Benign. A letter regarding these results will be sent to the patient by the facility within 30 days. Approximately 10% of breast cancers are not detected by mammography. A normal mammogram should not delay biopsy of a clinically suspicious abnormality. [id number] Electronically Signed: Corey Saldaña MD at 12:30 EST , Service support [phone], CC: Audrey Law DO Attorney Law Clerk: Signed 07-Aug-2016 Chest PA and Lateral Result: Comments: See Note; NOTES: [facility] Imaging Services [address] [place] [address] Verdana 4d Chest PA and Lateral MR#: [id number] Acct: [id number] Name: JS MEEKS Rep # : [id number] : 1945 F 70 From: Corey Saldaña MD PCP: Audrey Law DO Status: REG CLI Study: Chest PA and Lateral Date of Exam: 08/07/16 Exam# [id number] Ordering Dr: Audrey Law DO STUDY: X [...] Corey Saldaña MD at 10:53 EST Tel [phone], Service support , CC: Audrey Law DO Attorney Law Clerk: Signed 07-Aug-2016 DXA BONE DENS W/VERT FX ASMT Result: Comments: See Note; NOTES: [facility] Imaging Services [address] [place] [address] Verdana 4d DXA BONE DENS W/VERT FX ASMT MR#: [id number] Acct: [id number] Name: JS MEEKS Rep #: [id number] : 1945 F 70 From: Corey Saldaña MD PCP: Audrey Law DO Status: REG CLI Study: DXA BONE DENS W/VERT FX ASMT Date of Exam: 08/07/16 Exam# [id number] Ordering Dr: Jayna Law ra, DO STUDY: [...] Corey Saldaña MD at 13:51 EST Tel [phone], Service support [phone], CC: Audrey Law DO; GEE BELCHER Attorney Law Clerk: Signed 13-Jul-2016 Stress Test Echo w/o Contrast Result: Comments: See Note; NOTES: [facility] Cardiovascular Services [address] [place] [address] Verdana 4d Stress Test Echo w/o Contrast MR#: [id number] Acct: [id number] Name: JS ETIENNE Rep #: [id number] : 1945 70 From: Mark Leger MD [...] Date Dictated: 6 36 Date Transcribed: 07/13/161434 Attorney Law Clerk: Signed 02-May-2016 Pulmonary Function Report Comp Result: Comments: See Note; NOTES: [facility] Pulmonary Services/Neurology [address] [place] [address] Pulmonary Function Test (Comp) MR#: [id number] Acct: [id number] Name: RENITA MEEKS Rep #: [id number] : 1945 70 From: Markus Fuentes MD Referring Dr: Audrey Law DO Status: REG CLI Ordering Dr: Audrey Law DO Date: 05/01/16 Location: [facility] Sex: F C DATE OF SERVICE: 016 [...] C: Audrey Law DO T: NTS JOB: [id number] 05/02/16 0622 <Electronically signed by Markus Fuentes MD> Date Markus Fuentes MD CC: Markus Fuentes MD; Audrey Law DO Date Dictated: 05/01/1656 Date Transcribed: 05/01/16955 Attorney Law Clerk: Signed 04-Nov-2015 Brain W/WO Contrast Result: Comments: See Note; NOTES: [facility] Imaging Services [address] [place] [address] Verdana 4d Brain W/WO Contrast MR#: [id number] Acct: [id number] Name: ARIEL MEEKS Rep #: [id number] : 1945 F 70 From: Niki Cantu MD PCP: Audrey Law DO Status: REG CLI Study: Brain W/WO Contrast Date of Exam: 11/04/15 Exam# [id number] Ordering Dr: Audrey Law DO STUDY: MRI [...] MD at 12:52 EDT , Service support [phone] , CC: Audrey Law DO Attorney Law Clerk: Signed 05-Oct-2015 Spirometry (89518) Comments: good effort curve small- Result: 05-Oct-2015 ELECTROCARDIOGRAM, COMPLETE (ECG) (38643) Result: [MEASUREMENTS ANALYSIS] Date of Test: 10/05/2015 09:16:25; Heart Rate: 67; [place] Interval: 184; QRS: 92; QT Interval: 388; Corrected QT Interval (QTc): 400; P Wave Irving: 44; QRS Wave Irving: 15; T Wave Irving: 48; Blood Pressure: 122/74 [ECG DIAGNOSTIC STATEMENTS] Date of Test: 10/05/2015 09:16:25; Summary: Sinus Rhythm WITHIN NORMAL LIMITS 18-Aug-2015 Chest PA and Lateral Result: Comments: See Note; NOTES: [facility] Imaging Services [address] [place] [address] Verdana 4d Chest PA and Lateral MR#: [id number] Acct: [id number] Name: Fiona MEEKS Rep #: [id number] : 1945 F 69 From: Willie Andersen PCP: Audrey Law DO Status: REG CLI Study: Chest PA and Lateral Date of Exam: 08/18/15 Exam# [id number] Ordering Dr: Rey Tyson MD STUDY: X-RAY [...] at 6:26 EST , Service sup port [phone], RAD/Chest PA and Lateral IMPRESSION: There is NO acute cardiopulmonary abnormality. Electronically Signed: Willie Andersen MD at 6:26 EST , Service support [phone], CC: Michelle Tyson MD; Audrey Law DO Attorney Law Clerk: Signed 02-Dec-2014 Spirometry (62756) Comments: obstruction present Result: 27-Oct-2014 Bilat Scrn Digital AND CAD Result: Comments: See Note; NOTES: [facility] Imaging Services [address] [place] [address] Breast Imaging Report MR#: [id number] Acct: [id number] Name: JS MEEKS Rep #: [id number] : 1945 F 69 From: Sonu Olmstead MD PCP: Audrey Law DO Status: REG CLI Study: Bilat Scrn Digital AND CAD Date of Exam: 10/27/14 Exam# [id number] Ordering Dr: Audrey Law DO MAMMOGR APHY [...] at 11:33 EDT Tel , Service support [phone], CC: Audrey Law DO Attorney Law Clerk: Signed 27-Oct-2014 Bilat Scrn Digital AND CAD Result: Comments: See Note; NOTES: [facility] Imaging Services [address] [place] [address] Breast Imaging Report MR#: [id number] Acct: [id number] Name: JS MEEKS Rep #: [id number] : 1945 F 69 From: Sonu Olmstead MD PCP: Audrey Law DO Status: REG CLI Study: Bilat Scrn Digital AND CAD Date of Exam: 10/27/14 Exam# [id number] Ordering Dr: Audrey Law by Corey Saldaña MD on 11/01/14 at 1353 ADDENDUM This is an addendum report. Prior out side examination was made available for review. Comparison is made with prior examination dated November 06, 2013. There is essentially no change since prior study. Electronically Signed: Corey akbar MD at 13:53 EDT Tel [phone], Service support [phone], 11/01/14 1353 Date cc: Audrey Fast DO [...] at 11:33 EDT Tel , Service support [phone], CC: Audrey Law DO Attorney Law Clerk: Signed 03-Aug-2014 Vert Fx Asess/Lat Bone Den(H) Result: Comments: See Note; NOTES: [facility] Imaging Services [address] [place] [address] Bone Density Report MR#: [id number] Acct: [id number] Name: JS MEEKS Rep #: [id number] : 1945 F 68 From: Corey Saldaña MD PCP: Audrey Law DO Status: REG CLI Study: Vert Fx Asess/Lat Bone Den(H) Date of Exam: 08/03/14 Exam# [id number] Ordering Dr: Audrey Law DO STUDY: DUAL [...] Corey Saldaña MD at 13:11 EST Tel [phone], Service support [phone], CC: Audrey Law DO Attorney Law Clerk: Signed 03-Aug-2014 Dexa Bone Density Study (HP) Result: Comments: See Note; NOTES: [facility] Imaging Services [address] [place] [address] Bone Density Report MR#: [id number] Acct: [id number] Name: JS MEEKS Rep #: [id number] : 1945 F 68 From: Corey Saldaña MD PCP: Audrey Law DO Status: REG CLI Study: Dexa Bone Density Study (HP) Date of Exam: 08/03/14 Exam# [id number] Ordering Dr: Audrey Law DO STUDY: DUAL [...] Tio Saldaña MD at 14:42 EST Tel [phone], Service support [phone], CC: Audrey Law DO Attorney Law Clerk: Signed 29-Jul-2014 Chest PA and Lateral Result: Comments: See Note; NOTES: [facility] Imaging Services [address] [place] [address] Radiology Report MR#: [id number] Acct: [id number] Name: JS MEEKS Rep #: [id number] : 1945 F 68 From: Brad Lea MD PCP: Audrey Law DO Status: REG CLI Study: Chest PA and Lateral Date of Exam: 07/29/14 Exam# [id number] Ordering Dr: Michelle Tyson MD STUDY: X-RA [...] MD at 7:26 EST , Service support [phone], CC: Michelle Tyson MD; Audrey Law DO Attorney Law Clerk: Signed 29-Jul-2014 Spirometry (37385) Comments: see scanned document of test done to see results reviewed today with patient Result: 26-Mar-2014 Brain W/WO Contrast Result: Comments: See Note; NOTES: [facility] Imaging Services [address] [place] [address] MRI Report MR#: [id number] Acct: [id number] Name: JS MEEKS Rep #: [id number] DO B: 1945 F 68 From: Joshua Salcido MD PCP: Audrey Law DO Status: REG CLI Study: Brain W/WO Contrast Date of Exam: 03/26/14 Exam# [id number] Ordering Dr: Audrey Law DO STUDY: MRI [...] MD at 15:20 EDT , Service support [phone], CC: Audrey Law DO Attorney Law Clerk: Signed 19-Jan-2014 Chest WITH Contrast Result: Comments: See Note; NOTES: [facility] Imaging Services [address] [place] [address] CAT Scan Report MR#: [id number] Acct: [id number] Name: JS MEEKS Rep #: [id number] : 1945 F 68 From: Corey Saldaña MD PCP: Audrey Law DO Status: REG CLI Study: Chest WITH Contrast Date of Exam: 01/19/14 Exam# [id number] Ordering Dr: Audrey Law DO STUDY: CT [...] Corey Saldaña MD at 10:20 EDT Tel [phone], Service support , CC: Audrey Law DO Attorney Law Clerk: Signed 29-Dec-2013 Cerv Spine 4 or 5 Views Result: Comments: See Note; NOTES: [facility] Imaging Services [address] [place] [address] Radiology Report MR#: [id number] Acct: [id number] Name: JS MEEKS Rep #: [id number] : 1945 F 68 From: Cristino Salas MD PCP: Audrey Law DO Status: REG CLI Study: Cerv Spine 4 or 5 Views Date of Exam: 12/29/13 Exam# [id number] Ordering Dr: Audrey Law DO STUDY: X-RA [...] at 3:02 EDT Tel , Service support [phone], CC: Audrey Law DO Attorney Law Clerk: Signed 22-Dec-2013 Abdomen Single View Result: Comments: See Note; NOTES: [facility] Imaging Services [address] [place] [address] Radiology Report MR#: [id number] Acct: [id number] Name: JS MEEKS Rep #: [id number] : 1945 F 68 From: Willie Andersen PCP: Audrey Law DO Status: REG CLI Study: Abdomen Single View Date of Exam: 12/22/13 Exam# [id number] Ordering Dr: Justo Bowles MD STUDY: X-RAY [...] at 2:50 EDT Tel , Service support [phone], CC: Aurdey Law DO; Justo Bowles MD Attorney Law Clerk: Signed 19-Dec-2013 Operative Report Result: Comments: See Note; NOTES: [facility] Medical Records Department [address] [facility] [place] [address] Operative Report MR#: [id number] Acct: [id number] Name: JS MEEKS Rep #: [id number] : 1945 68 From: Justo Bowles MD PCP: Audrey Law DO Status: [facility] DATE OF SERVICE: 12/18/2013 DATE OF SERVICE: December 18, 2013. PREOPERATIVE DIAGNOSIS: Left ureteral ca lculi, status post stent placement. POSTOPERATIVE DIAGNOSIS: Left ureteral calculi, status post stent placement. PROCEDURES PERFORMED: Left ureteroscopy, laser lithotripsy of stone and left stent placement. ANESTHESIOLOGIST: Dr. Leiva. SURGEON: Justo Bowles M.D. SPECIMEN REMOVED: None. DRAINS: A 6-Burkinan x 24 cm stent on the left [...] we nt into the bladder with a 21-Burkinan rigid cystourethroscope, grabbed the existing stent from [...] for easy extraction. Justo Bowles MD T: [facility] JOB: [id number] 12/19/13 0743 <Electronically signed by Justo Bowles MD> Date Justo Bowles MD CC: Audrey Law DO; Justo Bowles MD Date Dictated: 12/18/13 1430 Date Transcribed: 12/18/13 143 Attorney Law Clerk: Signed 18-Dec-2013 Operative Report Result: Comments: See Note; NOTES: [facility] Medical Records Department [address] [place] [address] Operative Report 12/18/13 1428 MR#: [id number] Acct: [id number] Name: JS MEEKS Rep #: [id number] : 1945 68 From: Justo Bowles MD PCP: Audrey Law DO Status: REG SDC Y Location: [place] [address] Report of Operation Date of Procedure: 12/18/13 [...] Discharge Instruction Result: Comments: See Note; NOTES: [facility] Medical Records Department [address] [place] [address] Discharge Instruction 12/18/13 1343 MR#: [id number] Acct: [id number] Name: JS MEEKS Rep #: [id number] : 1945 68 From: Justo Bowles MD PCP: Audrey Law DO Status: REG [facility] Discharge Diet: No Restrictions Discharge Activity: Return [...] without Cont Result: Comments: See Note; NOTES: [facility] Imaging Services [address] [place] [address] CAT Scan Report MR#: [id number] Acct: [id number] Name: JS MEEKS Rep #: [id number] : 1945 F 68 From: Corey Saldaña MD PCP: Audrey Law DO Status: REG CLI Study: Abdomen/Pelvis without Cont Date of Exam: 12/04/13 Exam# [id number] Ordering Dr: Brett Mata MD: CT ABDOMEN [...] Corey Saldaña MD at 11:50 EDT Tel [phone], Service support [phone], CC: Audrey Law DO; Brett Mata MD Attorney Law Clerk: Signed Family History Unknown Family Member Name [...] kg/m2 Body Surface Area Calculated 1.61 m2 15-Tyv-589346:44 Temperature 98.3 f Pulse 66 /min Comments: [...] kg/m2 Body Surface Area Calculated 1.61 m2 69-Fie-325687:10 Temperature 98.1 f Comments: Method: Oral Pulse [...] kg/m2 Body Surface Area Calculated 1.61 m2 43-Ipu-299318:46 Pulse 64 /min Comments: Pattern: Regular Respiration [...] Height 0 in Head Circumference 0.00 cm 96-Otx-743428:50 Temperature 97.8 f Comments: Method: Oral Pulse [...] LAW ORDERED PTHIN/YUMI BELCHER ORDERED [facility] [address] [place], [place], [id number] GAP 7 (Normal) Range: 5-15 CO2 31.0 [...] Comments: Please note revised GLUCOSE reference range vrkssallj19/02/2018. 63-Ufb-16681:07 PTHIN 78.1 pg/mL (Normal) Comments: DR LAW ORDERED PTHIN/CADR BRANDY ORDERED [facility] [id number] [place], [address] Range: 18.4-80.1 :07 Vitamin D,25 Hydroxy Comments: DR LAW ORDERED PTHIN/YUMI BELCHER ORDERED CMP/PTHIN/[facility] [address] [place], [place], [address] Vitamin D 25-OH 68.3 ng/mL (Normal) Range: 29.95-100.01 Comments: Vitamin D 25(OH) Status Range Deficiency <20 ng/mL (50nmol/L) Insuffciency 20 - 30 ng/mL (50 - 75 nmol/L) Sufficiency 30 - 100 ng/mL (75 - 250 nmol/L) Toxicity >100 ng/mL (>250 nmol/L) 91-Mjx-30532:30 Culture, Urine Comments: [facility] [address] [place], [id number] CUUR See Note (Normal) Comments: Urine CultureORGANISM 1: Mixed Gram Positive OrganismsColony Count 1000-10,000MIX CULTURE Mixed contaminants. Submit a new specimen if indicated. 9-Pxx-770336:50 HGB A1C (19173) Comments: PATIENT WAS FASTINGPERFORMED BY: [facility] Afflpq5007 [facility] [id number] Hemoglobin A1c 5.6 % (Normal) Range: 4.8-5.6 Comments: . Prediabetes: 5.7 - 6.4 Diabetes: >6.4 Glycemic control for adults with diabetes: <7.0 0-Bkq-992776:50 VITAMIN B-12 (CYANOCOBALAMIN) Comments: PATIENT WAS FASTINGPERFORMED BY: [employer] [facility] [id number] ([id number]) Vitamin B12 626 pg/mL (Normal) Range: 232-1245 6-Hnr-021145:50 METABOLIC PANEL, COMPREHENSIVE Comments: PATIENT WAS FASTINGPERFORMED BY: iJoule70 [facility] [id number] (14650) ALT (SGPT) 22 [iU]/L (Normal) Range: 0-32 [...] 8-27 Glucose 96 mg/dL (Normal) Range: 65-99 7-Jnr-183988:50 Vitamin D Hydroxy (01952) Comments: PATIENT WAS FASTINGPERFORMED BY: DesignPax [facility] [id number] Vitamin D, 25-Hydroxy 51.3 ng/mL (Normal) Range: 30.0-100.0 Comments: Vitamin D deficiency has been defined by the [place] of[place]icine and an Endocrine Society practice guideline as alevel of serum 25-OH vitamin D less than 20 ng/mL (1,2).The Endocrine Society went on to further define vitamin Dinsufficiency as a level between 21 and 29 ng/mL (2).1. IOM ([place] of Medicine). 2010. Dietary reference intakes for calcium and D. [place]: The National AcademZola Books Press.2. Robinson MF, Keila AGUERO, Bruce ROBLES, et al. Evaluation, treatment, and prevention of vitamin D deficiency: an Endocrine Society clinical practice guideline. JCEM. 2010; 96(7):1911-30. 6-Elo-851752:50 LIPID PANEL (54262) Comments: PATIENT WAS FASTINGPERFORMED BY: [facility]Seibtm6123 [facility] [id number]; review on 04/29 LDL/HDL Ratio 2.6 {ratio} [...] Range: 100-199 18-Nov-20179:16 Comprehensive Metabolic Profil Comments: [facility] [address] [place], [place], [address] GAP 6 (Normal) Range: 5-15 CO2 31.0 mmol/L (Normal) Range: 21.0-32.0 CL 104 mmol/L (Normal) Range: 98-107 K 3.7 mmol/L (Normal) Range: 3.5-5.1 NA 141 mmol/L (Normal) Range: 136-145 T BILI 0.60 mg/dL (Normal) Range: 0.20-1.00 ALT 29 U/L (Normal) Range: 13-56 Comments: Please note revised ALT reference range /28/2018. ALK P 59 U/L (Normal) Range: 45-117 [...] Comments: Please note revised GLUCOSE reference range icqkmubwq01/02/2018. 18-Nov-20179:16 PTHIN 75.3 pg/mL (Normal) Comments: [facility] [address] [place], [place], [address] Range: 18.4-80.1 Comments: Please Note: PTH INTACT METHOD AND REFERENCE RANGE CHANGEEffective 07/31/2017. :16 Vitamin D,25 Hydroxy Comments: [facility] [address] [place], [place], [address] Vitamin D 25-OH 71.7 ng/mL (Normal) Range: 29.95-100.01 Comments: Vitamin D 25(OH) Status Range Deficiency <20 ng/mL (50nmol/L) Insuffciency 20 - 30 ng/mL (50 - 75 nmol/L) Sufficiency 30 - 100 ng/mL (75 - 250 nmol/L) Toxicity >100 ng/mL (>250 nmol/L) :52 HGB A1C (36760) Comments: PATIENT WAS FASTINGPERFORMED BY: [facility]6370 [facility] [id number] Hemoglobin A1c 5.5 % (Normal) Range: 4.8-5.6 Comments: . Pre-diabetes: 5.7 - 6.4 Diabetes: >6.4 Glycemic control for adults with diabetes: <7.0 :52 CBC W/AUTO DIFF WBC (00883) Comments: PATIENT WAS FASTINGPERFORMED BY: [facility]6370 [facility] [id number] Immature Grans (Abs) 0.0 {x10E3/uL} (Normal) Range: [...] PANEL, COMPREHENSIVE Comments: PATIENT WAS FASTINGPERFORMED BY: [facility]Vglyqy8167 [facility] [id number] (73111) ALT (SGPT) 20 [iU]/L (Normal) Range: 0-32 [...] mg/dL (Abnormal) Range: 65-99 :52 LIPID PANEL (18791) Comments: PATIENT WAS FASTINGPERFORMED BY: [facility]Gjnbhy4447 [facility] [id number]; review at upcoming appt LDL/HDL Ratio 2.3 [...] Cholesterol, Total 177 mg/dL (Normal) Range: 100-199 71-Ohy-19624:00 24 HR Urine Creatinine Comments: [facility] [address]rxoy[address] [facility] [address] [place], [place], [address] UR.CREAT/24hr 0.98 {g/24_HR} (Normal) Range: 0.70-1.90 URINE CREAT 67.40 mg/dL (Normal) UR TOTAL VOLUME 1.40 L (Normal) UR COLLECT TIME 24.0 {HOURS} (Normal) 08-Fob-10176:00 Miscellaneous Lab Procedure Comments: Test(s) Ordered: STONE RISK [id number] [facility] [address]zt[address] [place], [place], [address] [place] Comments: TEST RESULT FLAG UNITS REF INTERVALKidney [...] pH, 24 Hr Urine 6.3 Ammonia, Urine 85308 ug/dL Not Estab. Ammonia, Urine 22 No t Estab. Saturation Ratios Calcium Oxalate 5.13 ratio 0.00 - 6.00 Brushite 1.95 ratio 0.00 - 3.00 Monosodium Urate 1.29 ratio 0.00 - 4.00 U calixto Acid 0.49 ratio 0.00 - 1.20 Struvite 0.04 ratio 0.00 - 1.00 Please note: Graphic analysis of results will follow via computer, mail, or hot top liner del hayes. TESTING PERFORMED AT [facility]. ORIGINAL REPORT ON FILE IN LAB CONTAINS ADDITIONAL TEST SITE INFORMATION. AMENDED REPORT 10/04/1702 [place] [facility] TEST previously reported as: TEST RESULT [...] 24 Hr Urine 6.3 Ammo layton, Urine 14198 ug/dL Not Estab. TESTING PERFORMED AT [facility]. ORIGINAL REPORT ON FILE IN LAB CONTAINS ADDITIONAL TEST SITE INFORMATION. 89-Zcu-83270:45 Comprehensive Metabolic Profil Comments: [facility] [address] [place], [address] GAP 6 (Normal) Range: 5-15 CO2 32.0 [...] Comments: Please note revised GLUCOSE reference range bfkepimwa15/02/2018. 92-Luk-24760:45 Magnesium Comments: [facility] [address] [facility] [address] [place], [phone] MG 2.4 mg/dL (Normal) Range: 1.6-2.6 Comments: Please note revised Magnesium reference range mgoumfoku52/15/2018. 47-Gso-91497:45 Vitamin D,25 Hydroxy Comments: [facility] [address] [place], [place], [address] Vitamin D 25-OH 46.2 ng/mL (Normal) Range: 19.95-100.01 Comments: Vitamin D 25(OH) Status Range Deficiency <20 ng/mL (50nmol/L) Insuffciency 20 - 30 ng/mL (50 - 75 nmol/L) Sufficiency 30 - 100 ng/mL (75 - 250 nmol/L) Toxicity >100 ng/mL (>250 nmol/L) 3-Zui-172837:36 VITAMIN B-12 (CYANOCOBALAMIN) Comments: PATIENT NOT FASTINGPERFORMED BY: [facility]6370 [facility] [id number] (88079) Vitamin B12 626 pg/mL (Normal) Range: 232-1245 33-Nur-128844:14 CBC W/AUTO DIFF WBC (09771) Comments: PATIENT NOT FASTINGPERFORMED BY: [facility]6370 [facility] [id number] Immature Grans (Abs) 0.0 {x10E3/uL} (Normal) Range: [...] 3.77-5.28 WBC 5.2 {x10E3/uL} (Normal) Range: 3.4-10.8 52-Gax-250511:14 METABOLIC PANEL, COMPREHENSIVE Comments: PATIENT NOT FASTINGPERFORMED BY: [facility] Grdkoq8867 [facility] [id number]; review 09/10 (20217) ALT (SGPT) 19 [iU]/L (Normal) Range: 0-32 [...] Glucose, Serum 107 mg/dL (Abnormal) Range: 65-99 1-Euj-785602:04 Comprehensive Metabolic Profil Comments: [facility] [address] [place], [place], [address] GAP 5 (Normal) Range: 5-15 CO2 28.0 [...] 7-18 GLU 85 mg/dL (Normal) Range: 70-110 2-Tqa-254913:04 Magnesium Comments: [facility] [address] [place], [address] MG 2.4 mg/dL (Normal) Range: 1.8-2.4 4-Wbb-959427:04 PTH,INTACT Comments: [facility] [address] [place], [place], [address] PTH,Intact 57 pg/mL (Normal) Range: 14-72 4-Kqt-893160:04 Vitamin D,25 Hydroxy Comments: [facility] [address] [facility] [address] [place], [place], [address] Vitamin D 25-OH 62.0 ng/mL (Normal) Comments: Vitamin D 25(OH) Status Range Deficiency <20 ng/mL (50nmol/L) Insuffciency 20 - 30 ng/mL (50 - 75 nmol/L) Sufficiency 30 - 100 ng/mL (75 - 250 nmol/L) Toxicity >100 ng/mL (>250 nmol/L) 63-Lwv-806190:07 CBC W/AUTO DIFF WBC Comments: PATIENT WAS FASTINGPERFORMED BY: [place] [id number] BY: ROMEO [facility] Kzywqc5500 [facility] [id number] (45129) Immature Grans (Abs) 0.0 {x10E3/uL} (Normal) Range: [...] 3.77-5.28 WBC 5.2 {x10E3/uL} (Normal) Range: 3.4-10.8 41-Xqz-527183:07 METABOLIC PANEL, Comments: PATIENT WAS FASTINGPERFORMED BY: [place] [id number] BY: [facility]Kariem6680 [facility] [id number] COMPREHENSIVE (27945) ALT (SGPT) 21 [iU]/L (Normal) Range: 0-32 [...] Glucose, Serum 94 mg/dL (Normal) Range: 65-99 97-Axm-484427:07 LIPOPROTEIN, BLD, BY NMR Comments: PATIENT WAS FASTINGPERFORMED BY: LabCo[address] [id number] BY: LabPulmatrixCapital Health [facility]Sxbhyu0147 [facility] [id number] (12664) LP-IR Score 59 (Abnormal) Comments: INSULIN RESISTANCE MARKER <--Insulin Sensitive Insulin Resistant--> Percentile in Reference PopulationInsulin Resistance ScoreLP-IR Score Low 25th 50th 75th High <27 27 45 63 >63LP-IR Score is inaccurate if patient is non-fasting. .The LP-IR score is a laboratory developed i [facility] that has beenassociated with insulin resistance and [...] 1600 - 2000 Very High > 2000 42-Swj-043685:07 Vitamin D Hydroxy Comments: PATIENT WAS FASTINGPERFORMED BY: [employer] [address] [id number] BY: [place] Mxhvul6741 [facility] [id number] (86579) Vitamin D, 25-Hydroxy 75.1 ng/mL (Normal) Range: 30.0-100.0 Comments: Vitamin D deficiency has been defined by the [place] of[facility] and an Endocrine Society practice guideline as alevel of serum 25-OH vitamin D less than 20 ng/mL (1,2).The Endocrine Society went on to further define vitamin Dinsufficiency as a level between 21 and 29 ng/mL (2).1. IOM ([place] of Medicine). 2010. Dietary reference intakes for calcium and D. [place]: The National Academies Press.2. Robinson MF, Keila AGUERO, Bruce ROBLES, et al. Evaluation, treatment, and prevention of vitamin D deficiency: an Endocrine Society clinical practice guideline. JCEM. 2010; 96(7):1911-30. 78-Klr-354857:07 HGB A1C (92948) Comments: PATIENT WAS FASTINGPERFORMED BY: [employer] [address] [id number] BY: iJoule70 [facility] [id number] Hemoglobin A1c 5.6 % (Normal) Range: 4.8-5.6 Comments: . Pre-diabetes: 5.7 - 6.4 Diabetes: >6.4 Glycemic control for adults with diabetes: <7.0 5-Aza-965607:30 Rapid Flu (44341 x 2) Influenza A Ag positive A (Normal) 76-Vee-49493:49 MICROALBUMIN: CREATININE Comments: PATIENT WAS FASTINGPERFORMED BY: [employer] [address] [id number] BY: LOYAL3 Dfveiy3666 [facility] [id number] RATIO (62980) AND (70393) Microalb/Creat Ratio 9.5 {mg/g_creat} (Normal) Range: 0.0-30.0 Microalbumin, Urine 18.9 ug/mL (Normal) Creatinine, Urine 200.0 mg/dL (Normal) :49 HGB A1C (11663) Comments: PATIENT WAS FASTINGPERFORMED BY: LabCoAlex[place] 583617 [facility] [id number] BY: [facility]Aled[facility]6370 [facility] [id number] Hemoglobin A1c 5.8 % (Abnormal) Range: 4.8-5.6 Comments: . Pre-diabetes: 5.7 - 6.4 Diabetes: >6.4 Glycemic control for adults with diabetes: <7.0 :49 METABOLIC PANEL, Comments: PATIENT WAS FASTINGPERFORMED BY: [facility]Co[place] 583617 [facility] [id number] BY: [facility]Co[facility]Qexnfp0265 [facility] [id number] COMPREHENSIVE (45403) ALT (SGPT) 13 [iU]/L (Normal) Range: 0-32 [...] Glucose, Serum 91 mg/dL (Normal) Range: 65-99 19-Twj-54018:49 LIPOPROTEIN, BLD, BY NMR Comments: PATIENT WAS FASTINGPERFORMED BY: BN [facility] Ujpjtouvpi4074 [facility] [id number] BY: CB [facility] Vrkmqj6205 [facility] [id number]; fu 11-28 Dr. Law (72543) LP-IR Score 36 (Normal) Comments: INSULIN RESISTANCE MARKER <--Insulin Sensitive Insulin Resistant--> Percentile in Reference PopulationInsulin Resistance ScoreLP-IR Score Low 25th 50th 75th High <27 27 45 63 >63LP-IR Score is inaccurate if patient is non-fasting. .The LP-IR score is a laboratory developed i [facility] that has beenassociated with insulin resistance and [...] were developed and their performance characteristicsdetermined by [employer]. These assays have not been cleared by [...] 1600 - 2000 Very High > 2000 47-Rhu-651716:00 Comprehensive Metabolic Profil Comments: [facility] [address] [place], [address] GAP 4 (Abnormal) Range: 5-15 CO2 30.0 [...] 7-18 GLU 80 mg/dL (Normal) Range: 70-110 72-Xlt-348096:00 Magnesium Comments: [facility] [address] [place], [place], [address] MG 2.2 mg/dL (Normal) Range: 1.8-2.4 85-Pnu-597971:00 PTH,INTACT Comments: [facility] [address] [place], [place], [address] PTH,Intact 39 pg/mL (Normal) Range: 14-72 30-Hov-135941:00 Vitamin D,25 Hydroxy Comments: [facility] [address] [place], [place], [address] Vitamin D 25-OH 44.7 ng/mL (Normal) Comments: Vitamin D 25(OH) Status Range Deficiency <20 ng/mL (50nmol/L) Insuffciency 20 - 30 ng/mL (50 - 75 nmol/L) Sufficiency 30 - 100 ng/mL (75 - 250 nmol/L) Toxicity >100 ng/mL (>250 nmol/L) :23 HgA1C , Office (57999) HgA1C , Office 5.3 % (Normal) Range: 4.6 - 7.1 :42 CBC W/Diff, Automated Comments: [facility] [address] [place], [address] Absolute Lymph 1.85 {X10_3/ul} (Normal) Range: 0.83-4.51 [...] 4.2-5.4 WBC 5.2 K/mm3 (Normal) Range: 4.4-11.0 43-Djx-54391:42 Comprehensive Metabolic Profil Comments: [facility] [address] [place], [address] ; non-emergent till apt GAP [...] (Normal) Range: 70-110 :42 Lipid Profile Comments: [facility] [address] [place], [address] VLDL 30 mg/dL (Normal) Range: 5-40 LDL [...] High Risk :42 Microalb:Creat Ratio,Random UR Comments: [facility] [address] [place], [address] MALB:CREAT 7.2 {mg/g_CRE} (Normal) MICROALBUMIN,UR 12.0 mg/L (Normal) UR CREAT 166.00 mg/dL (Normal) :42 Vitamin B12 726 pg/mL (Normal) Comments: [facility] [address] [place], [address] ; will review on 05/08 appt Range: 211-911 :42 Vitamin D,25 Hydroxy Comments: [facility] [address] [place], [address] Vitamin D 25-OH 56.6 ng/mL (Normal) Comments: Vitamin D 25(OH) Status Range Deficiency <20 ng/mL (50nmol/L) Insuffciency 20 - 30 ng/mL (50 - 75 nmol/L) Sufficiency 30 - 100 ng/mL (75 - 250 nmol/L) Toxicity >100 ng/mL (>250 nmol/L) :46 Culture, Urine Comments: [facility] [address] [place], [address] CUUR See Note (Normal) Comments: Urine CultureORGANISM [...] $ <=20 S(NF) indicates non-formulary drug at [facility]. Approval by Infectious Disease Specialist required before non-formulary drugs may be ordered and/or dispensed. :46 Urinalysis, Routine (Dipstick) Comments: How was Urine Obtained? CLEAN [facility] [address] [place], [place], [address] LEUK ESTERASE 500 /ul (Abnormal) OCCULT BLOOD-UR 25 /ul (Abnormal) NITRITE UR Negative (Normal) UROBILI Normal mg/dL (Normal) PROT DIPSTX 30 mg/dL (Abnormal) pH UR 6.0 (Normal) Range: 5.0 - 8.0 SP.GR. DIPSTX 1.025 (Normal) Range: 1.002-1.030 KETONE UR Negative mg/dL (Normal) BILIRUBIN URINE Negative mg/dL (Normal) GLUCOSE, UR Normal mg/dL (Normal) CLARITY Sl. Cloudy (Normal) COLOR Yellow (Normal) 22-Zyt-492193:34 PTH,INTACT Comments: [facility] [address] [place], [place], [address] PTH,Intact 64 pg/mL (Normal) Range: 14-72 92-Cfi-725754:09 CBC W/Diff, Automated Comments: [facility] [address] [place], [place], [address] Absolute Lymph 1.36 {X10_3/ul} (Normal) Range: 0.83-4.51 [...] 4.2-5.4 WBC 5.2 K/mm3 (Normal) Range: 4.4-11.0 70-Rva-931043:09 Comprehensive Metabolic Profil Comments: [facility] [address] [place], [place], [address] GAP 2 (Abnormal) Range: 5-15 CO2 31.0 [...] 7-18 GLU 99 mg/dL (Normal) Range: 70-110 01-Oee-440978:09 Hemoglobin A1c Comments: [facility] [address] [place], [address] HGB A1C 5.4 % (Normal) Range: 4.2-6.3 58-Klb-350615:09 Lipid Profile Comments: [facility] [address] [place], [address] VLDL 29 mg/dL (Normal) Range: 5-40 [...] 200-240 mg/dL Borderline >240 mg/dL High Risk 62-Bac-253008:09 Microalb:Creat Ratio,Random UR Comments: [facility] [address] [place], [address] MALB:CREAT 13.7 {mg/g_CRE} (Normal) MICROALBUMIN,UR 19.5 mg/L (Normal) UR CREAT 142.00 mg/dL (Normal) 02-Uoa-391677:09 Vitamin B12 543 pg/mL (Normal) Comments: [facility] [address] [place], [address] Range: 211-911 69-Sza-164644:09 Vitamin D,25 Hydroxy Comments: [facility] [address] [place], [address] Vitamin D 25-OH 58.6 ng/mL (Normal) Comments: Vitamin D 25(OH) Status Range Deficiency <20 ng/mL (50nmol/L) Insuffciency 20 - 30 ng/mL (50 - 75 nmol/L) Sufficiency 30 - 100 ng/mL (75 - 250 nmol/L) Toxicity >100 ng/mL (>250 nmol/L) 89-Qch-203509:30 Comprehensive Metabolic Profil Comments: [facility] [address] [place], [address] ; Ordered by another doctor GAP 6 [...] 7-18 GLU 93 mg/dL (Normal) Range: 70-110 25-Qmw-046052:30 PTH,INTACT Comments: [facility] [address] [place], [address] PTH,Intact 70 pg/mL (Normal) Range: 14-72 71-Ane-865586:30 Vitamin D,25 Hydroxy Comments: [facility] [address] [place], [place], [address] Vitamin D 25-OH 52.0 ng/mL (Normal) Comments: Vitamin D 25(OH) Status Range Deficiency <20 ng/mL (50nmol/L) Insuffciency 20 - 30 ng/mL (50 - 75 nmol/L) Sufficiency 30 - 100 ng/mL (75 - 250 nmol/L) Toxicity >100 ng/mL (>250 nmol/L) 34-Ier-175578:23 URINE LOW CULTURE-RUDDY COL Comments: PATIENT NOT FASTINGPERFORMED BY: [facility] Lgkebx5595 [facility] [id number] Information: SRC:UR [id number] COUNT (25395) Result 1 NG36 (Normal) Comments: No growth in 36 - 48 hours. Urine Culture,Comprehensive Final report (Normal) 12-Dwz-48011:56 Urinalysis, Office (18286) UA - LEUKOCYTE ESTERASE Negative (Normal) UA - NITRITE Negative (Normal) URINE UROBILINGN RUDDY TIMED Normal mg/dL (Normal) UA - PROTEIN Negative mg/dL (Normal) UA - PH 7 (Normal) UA - BLOOD Negative (Normal) UA - SPECIFIC GRAVITY 1.030 (Abnormal) UA - KETONES Negative mg/dL (Normal) UA - BILIRUBIN Negative (Normal) UA - GLUCOSE Negative (Normal) 86-Jvx-73053:29 HgA1C , Office (39926) HgA1C , Office 5.7 % (Normal) Range: 4.6 - 7.1 6-Aui-479634:11 Comprehensive Metabolic Profil Comments: [facility] [address] [place], [place], [address] ; apt. 10-16-15 GAP 5 (Normal) Range: [...] 7-18 GLU 80 mg/dL (Normal) Range: 70-110 7-Nrc-868384:11 Culture, Urine Comments: [facility] Holqoojstz[address] [facility] [place], [place], [address] CUUR See Note (Normal) Comments: Urine CultureCulture exhibits no growth. 8-Jog-585527:11 Lipid Profile Comments: [facility] [address] [place], [place], [address] VLDL 27 mg/dL (Normal) Range: 5-40 LDL [...] 200-240 mg/dL Borderline >240 mg/dL High Risk 3-Wtd-240719:11 Vitamin B12 545 pg/mL (Normal) Comments: [facility] [address] [place], [address] Range: 211-911 Comments: ADDENDA: normal and has apt next week 20-Nby-441139:00 Comprehensive Metabolic Profil Comments: Test performed at:[facility] [address] [place] [address] ; handled by weytesha GAP 3 [...] 7-18 GLU 91 mg/dL (Normal) Range: 70-110 28-Dcr-478131:00 PTH,INTACT Comments: Test performed at:[facility] [address] [place] [address] PTH,Intact 87 pg/mL (Abnormal) Range: 14-72 72-Rbo-866317:00 Thyroid Stim Hormone (TSH) Comments: Test performed at:[facility] [address] [place] [address] TSH 0.57 {uIU/mL} (Normal) Range: 0.358-3.74 41-Puk-887762:00 Vitamin D,25 Hydroxy Comments: Test performed at:[facility] [address] [place] [address] Vitamin D 25-OH 38.5 ng/mL (Normal) Comments: Vitamin D 25(OH) Status Range Deficiency <20 ng/mL (50nmol/L) Insuffciency 20 - 30 ng/mL (50 - 75 nmol/L) Sufficiency 30 - 100 ng/mL (75 - 250 nmol/L) Toxicity >100 ng/mL (>250 nmol/L) 9-Kvn-122466:51 URINE LOW CULTURE-RUDDY COL Comments: PATIENT NOT FASTINGPERFORMED BY: [facility] Avzfgx5513 [facility] [id number] Information: SRC:URC [id number]; susept. to cipro and was treated COUNT (42524) Antimicrobial MIHEAD (Normal) Comments: S = Susceptible; [...] mL (Abnormal) Urine Final report Culture,Comprehensive (Abnormal) 5-Llj-624539:15 Urinalysis, Office (87123) UA - LEUKOCYTE ESTERASE Moderate (Normal) UA [...] (Normal) :18 Immunofixation Urine Comments: Test performed at:[facility] [address] [place] [address] GEMMA Urine Comment (Normal) Comments: No monoclonality detected.Performed at: [facility] [address] [id number] Director: Himanshu Leung PhD, Phone: [phone] 89-Agb-56127:18 PTH,INTACT Comments: Test performed at:[facility] [address] [place] [address] PTH,Intact 65 pg/mL (Normal) Range: 14-72 :18 Vitamin D,25 Hydroxy Comments: Test performed at:[facility] Kiglvnyndy1714 [facility] [place] [address] Vitamin D 25-OH 45.2 ng/mL (Normal) Comments: Vitamin D 25(OH) Status Range Deficiency <20 ng/mL (50nmol/L) Insuffciency 20 - 30 ng/mL (50 - 75 nmol/L) Sufficiency 30 - 100 ng/mL (75 - 250 nmol/L) Toxicity >100 ng/mL (>250 nmol/L) 11-Jsz-149763:29 Basic Metabolic Profile (BMP) Comments: Test performed at:[facility] Tbsuckqtbu2819 [facility] [place] [address] ; handled by nohelia GAP [...] Comments: Please note revised CREATININE reference range edyqhvlda08/22/2015. BUN 15 mg/dL (Normal) Range: 7-18 GLU 97 mg/dL (Normal) Range: 70-110 8-Zzk-186441:05 Immunofixation Urine Comments: Test performed at:[facility] [address] [place] [address] GEMMA Urine Comment (Normal) Comments: No monoclonality detected.Performed at: - [facility] [address] [id number] Director: Shady Jackson PhD, Phone: [phone] 6-Lng-516238:05 PTH,INTACT Comments: ORDERED LIPID,LIVERDR.BENIGNO ORDERED BMP,PTHIN,VITD,URINE IMMUNTest performed at:[facility] [address]cbg[address] [place] [address] PTH,Intact 80 pg/mL (Abnormal) Range: 14-72 5-Adp-149583:05 Vitamin D,25 Hydroxy Comments: Test performed at:[facility] [address]wo[address] [place] [address] Vitamin D 25-OH 35.6 ng/mL (Normal) Comments: Vitamin D 25(OH) Status Range Deficiency <20 ng/mL (50nmol/L) Insuffciency 20 - 30 ng/mL (50 - 75 nmol/L) Sufficiency 30 - 100 ng/mL (75 - 250 nmol/L) Toxicity >100 ng/mL (>250 nmol/L) 3-Wts-980599:04 Basic Metabolic Profile (BMP) Comments: Test performed at:[facility] [address]dk[address] [place] [address] GAP 8 (Normal) Range: 5-15 [...] 7-18 GLU 86 mg/dL (Normal) Range: 70-110 6-Irx-377831:04 Lipid Profile Comments: Test performed at:[facility] [address] [place] [address] VLDL 19 mg/dL (Normal) Range: [...] Risk :04 Liver Profile Comments: Test performed at:[facility] [address] [place] [address] D BILI 0.16 mg/dL (Normal) Range: 0.00-0.30 T BILI 0.70 mg/dL (Normal) Range: 0.20-1.00 ALT 32 U/L (Normal) Range: 12-78 ALK P 53 U/L (Normal) Range: 50-136 AST 17 U/L (Normal) Range: 15-37 GLOB 3.1 g/dL (Normal) Range: 2.7-4.2 ALB 4.0 g/dL (Normal) Range: 3.4-5.0 T PROT 7.1 g/dL (Normal) Range: 6.4-8.2 :03 24 HR Urine Creatinine Comments: Test performed at:[facility] [id number] [place] [address] UR.CREAT/24hr 1.3 {g/24_hr} (Normal) Range: 0.6-1.5 URINE CREAT 158.2 mg/dL (Normal) UR TOTAL VOLUME 0.85 L (Normal) UR COLLECT TIME 24.0 {HOURS} (Normal) [id number] Miscellaneous Lab Procedure Comments: Comments: STONERISK PANEL #[id number](s) Ordered: STONERISK PANEL #[id number] performed at:[facility] [address]kr[address] [place] [address] [place] Comments: TEST RESULT UNITS REFERENCE INTERVALKidney Stone, [...] - 1800.0pH, 24 Hr Urine 5.3Ammonia, Urine 44816 ug/dL Not Estab.Ammonia, Urine 20 mEq/24 hr Not E stab.Saturation Ratios:Calcium Oxalate 21.12 High ratio 0.00 - 6.00Brushite 1.78 ratio 0.00 - 3.00Monosodium Urate 2.48 ratio 0.00 - 4.00Uric Acid 5.05 High ratio 0.00 - 1.20Struvite 0.01 ratio 0.00 - 1.00Please note:Graphic analysis of results will follow:Scanned image report available in EMR TESTING PERFORMED AT [facility]. ORIGINAL REPORT ON FILE IN LAB CONTAINS ADDITIONAL TEST SITE INFORMATION. 72-Xgn-551574:32 Urine Culture,Comprehensive Comments: PATIENT NOT FASTINGPERFORMED BY: [facility]6370 [facility] [id number] Information: SRC:[facility] [id number] Result 1 ECV (Abnormal) Comments: Escherichia coli, [...] S Urine Final report Culture,Comprehensi (Abnormal) ve 23-Ogi-680915:54 Urinalysis, Office (86884) UA - LEUKOCYTE ESTERASE Trace (Normal) UA - NITRITE Positive (Normal) URINE UROBILINGN RUDDY TIMED 2 mg/dL (Normal) UA - PROTEIN 30 mg/dL (Normal) UA - PH 6.0 (Normal) UA - BLOOD Negative (Normal) UA - SPECIFIC GRAVITY 1.030 (Abnormal) UA - KETONES Small mg/dL (Normal) UA - BILIRUBIN Negative (Normal) UA - GLUCOSE Negative (Normal) :42 HgA1C , Office (26070) HgA1C , Office 5.7 % (Normal) Range: 4.6 - 7.1 :58 CBC W/Diff, Automated Comments: Test performed at:[facility] [address] [place] [address] Absolute Lymph 1.31 {X10_3/ul} (Normal) Range: 0.83-4.51 [...] 4.2-5.4 WBC 5.2 K/mm3 (Normal) Range: 4.4-11.0 61-Aol-017681:58 Vitamin B12 368 pg/mL (Normal) Comments: Test performed at:[facility] [address] [place] [address] Range: 211-911 86-Cnw-316415:58 Vitamin D,25 Hydroxy Comments: Test performed at:[facility] [address] [place] [address] Vitamin D 25-OH 31.4 ng/mL (Normal) Comments: Vitamin D 25(OH) Status Range Deficiency <20 ng/mL (50nmol/L) Insuffciency 20 - 30 ng/mL (50 - 75 nmol/L) Sufficiency 30 - 100 ng/mL (75 - 250 nmol/L) Toxicity >100 ng/mL (>250 nmol/L) 00-Pkr-496981:46 Bilirubin, Direct Comments: LIPID LIVERASAEL PALACIOS [facility] MGDR.FAST CMP LIPID VITD [id number] performed at:[facility] [address]amjlofdu[address] [place] [place] [address] D BILI 0.16 mg/dL (Normal) Range: 0.00-0.30 53-Mai-205821:46 Comprehensive Metabolic Profil Comments: DR.OFORI OROPEZA LIVERASAEL PALACIOS [facility] MGDR.FAST CMP LIPID VITD [id number] performed at:[facility] [address] [place] [address] GAP 6 (Normal) Range: 5-15 CO2 [...] 7-18 GLU 87 mg/dL (Normal) Range: 70-110 77-Yhg-495989:46 Lipid Profile Comments: DR.OFORI OROPEZA [facility] CENTERISAEL PALACIOS [facility] CENTERDR.FAST CMP LIPID VITD [id number] performed at:[facility] [address] [place] [address] ; handled by cardio VLDL 25 mg/dL [...] 200-240 mg/dL Borderline >240 mg/dL High Risk 74-Yoi-214627:46 Magnesium Comments: DR.OFORI SANDIP [facility]ENTERARTURO PALAC[facility] MGDR.FAST CMP LIPID VITD [id number] performed at:[facility] [address] [place], [place] [address] MG 2.1 mg/dL (Normal) Range: 1.8-2.4 86-Vcs-158874:31 Comprehensive Metabolic Profil Comments: Test performed at:[facility] [address] [place] [address] GAP 6 (Normal) Range: 5-15 [...] 7-18 GLU 92 mg/dL (Normal) Range: 70-110 10-Krq-310422:31 Free T3 Comments: Test performed at:[facility] [address] [place] [address] FREE T3 3.1 pg/mL (Normal) Range: 2.18-3.98 02-Cio-295837:31 Immunofixation Urine Comments: Test performed at:[facility] [address] [place] [address] GEMMA Urine Comment (Normal) Comments: No monoclonality detected.Performed at: [address] [id number] Director: Shady Jackson PhD, Phone: [phone] 46-Cki-466262:31 T4 Free Direct Comments: Test performed at:[facility] [address] [place], [place] [address] T4 FREE DIRECT 0.97 ng/dL (Normal) Range: 0.76-1.46 86-Kfk-852847:31 Thyroid Stim Hormone (TSH) Comments: Test performed at:[facility] [address] [place] [address] TSH 0.41 {uIU/mL} (Normal) Range: 0.358-3.74 6-Mxi-312137:59 EBV Panel (73768) Comments: PATIENT NOT FASTINGPERFORMED BY: [employer] [facility] Wyeroh2485 [facility] [id number] Interpretation: SPRCS (Normal) Comments: EBV Interpretation Chart [...] <36.0 Equivocal 36.0 - 43.9 Positive >43.9 6-Dgz-070801:59 CBC W/AUTO DIFF WBC Comments: PATIENT NOT FASTINGPERFORMED BY: CB [facility] Xzeton9391 [facility] [id number] Information: [id number] (26932) Immature Grans (Abs) 0.0 {x10E3/uL} (Normal) Range: [...] 3.77-5.28 WBC 5.2 {x10E3/uL} (Normal) Range: 3.4-10.8 0-Obx-609312:05 URINE LOW CULTURE-RUDDY COL Comments: PATIENT NOT FASTINGPERFORMED BY: [facility]6370 [facility] [id number] Information: SRC:URC [id number] COUNT (80575) Result 1 MUG (Normal) Comments: Mixed urogenital rzuns192 Colonies/mL Urine Culture,Comprehensive Final report (Normal) 9-Vkz-480485:07 Urinalysis, Office (66929) UA - LEUKOCYTE ESTERASE Negative (Normal) UA - NITRITE Negative (Normal) URINE UROBILINGN RUDDY TIMED 2 mg/dL (Normal) UA - PROTEIN 30 mg/dL (Normal) UA - PH 6.0 (Normal) Comments: 5.5 UA - BLOOD Negative (Normal) UA - SPECIFIC GRAVITY 1.030 (Abnormal) UA - KETONES Negative mg/dL (Normal) UA - BILIRUBIN Negative (Normal) UA - GLUCOSE Negative (Normal) 53-Dak-706993:56 Rapid Flu (53890 x 2) Influenza A Ag neg (Normal) 80-Eth-481412:22 URINE LOW CULTURE-RUDDY COL Comments: PATIENT NOT FASTINGPERFORMED BY: [employer] [facility] [id number] Information: SRC:URC [id number] COUNT (55252) Result 1 MUG (Normal) Comments: Mixed urogenital flora3,000 Colonies/mL Urine Culture,Comprehensive Final report (Normal) 22-Vvn-073388:23 Urinalysis, Office (88322) UA - LEUKOCYTE ESTERASE Negative (Normal) UA - NITRITE Negative (Normal) URINE UROBILINGN RUDDY TIMED Normal mg/dL (Normal) UA - PROTEIN Negative mg/dL (Normal) UA - PH 6.0 (Normal) Comments: 5.5 UA - BLOOD Hemolyzed Trace (Normal) UA - SPECIFIC GRAVITY 1.030 (Abnormal) UA - KETONES 40 mg/dL (Abnormal) UA - BILIRUBIN Negative (Normal) UA - GLUCOSE Negative (Normal) 30-Lmq-10358:19 URINE CALCIUM RUDDY TIMED Comments: PATIENT NOT FASTINGPERFORMED BY: [employer] [facility] [id number] Information: START 10/05/14@630AM FINISH 24 Hour (43418) Calcium, Urine 24hr 330.0 {mg/24_hr} (Abnormal) Range: 100.0-300.0 Calcium, Urine 33.0 mg/dL (Normal) Comments: Results confirmed ondilution. 07-Lfi-613873:34 CBC W/Diff, Automated Comments: DR LAW ORDERED CBCD VITD CMP B12 IVAN NAVARRO ORDERED LIPID LIVERTest performed at:[facility] [address] [place], [place] [address] ; handled by Emelina Navarro Absolute Lymph [...] 4.2-5.4 WBC 4.9 K/mm3 (Normal) Range: 4.4-11.0 41-Ovj-501790:34 Comprehensive Metabolic Comments: Interface Comments: IDR V0-[id number] WO Y061120 V0-[id number] Main V0- [id number] Lab [id number] 1034 [facility] FG6814 V0-[id number] Main2 LIVER Routine Profil 1 PA.MMURRA INT Main3 [id number] 1032 [id number] Transmitted LisData N [id number] 0788-1 OV LABORD CD.Queries INT.COM CD.Queries INT.DX CD.Queries INT.ORDDT CD.Queries INT.OVID CD.Queries INT.OVORD CD.Queries OECOM CD.Queries OM.PTARRIVED CD.Queries OM.REASONDiagnosis:Diagnosis: IDR V0-[id number] [facility] I840891 V0-B2014 02445Qoyslwfyb: [id number] Main V0-[id number] Lab [id number] 1034Diagnosis: RANGLE BT5617 V0-[id number] Main2 LIPID RoutDiagnosis: ine 1 PA.MMURRA INT Main3 9963616 6 7328 [id number]: 39465 Transmitted Cookie ARDON 90884-8A 74100-Srepicqlu: 1 OV LAB ORD CD.Queries INT.COM 12 HOURS FASTING,Diagnosis: MAY HAVE WATER. PLEASE SEND CO PY TO PRIMARY CAREDiagnosis: PHYSICIAN. CD.Queries INT.DX CD.Queries INT.ORDDTDiagnosis: CD.Queries INT.OVID CD.Queries INT.OVORD CD.QueDiagnosis: sneha OECOM CD.Queries OM .PTARRIVED CD.Queries OM.Diagnosis: REASONTest performed at:[facility] [address] [place], [place] [address] GAP 3 (Abnormal) Range: 5-15 CO2 29.0 [...] 7-18 GLU 87 mg/dL (Normal) Range: 70-110 64-Tdz-120882:34 Lipid Profile Comments: Interface Comments: IDR V0-[id number] [facility] D008256 V0-[id number] Main V0-[id number] Lab [id number] 1034 KEV RI7469 V0-[id number] Main2 LIVER Routine 1 PA.MMURRA INT Main3 [id number] 1034 [id number] Transmitted LisData N [id number] 0788-1 OV LABORD CD.Queries INT.COM CD.Queries INT.DX CD.Queries INT.ORDDT CD.Queries INT.OVID CD.Queries INT.OVORD CD.Queries OECOM CD.Queries OM.PTARRIVED CD.Queries OM.REASONDiagnosis:Diagnosis: IDR V0-[id number] [facility] C773656 V0-B2014 31851Sddmswvus: [id number] Main V0-[id number] Lab 20140827 1034Diagnosis: KEV RU6080 V0-[id number] Main2 LIPID RoutDiagnosis: ine 1 PA.MMURRA INT Main3 20140812 6 1034 [id number]: 70051 Transmitted LisData N [id number] 95372-Jmdwcijdo: 1 OV LAB ORD CD.Queries INT.COM 12 HOURS FASTING,Diagnosis: MAY HAVE WATER. PLEASE SEND CO PY TO PRIMARY CAREDiagnosis: PHYSICIAN. CD.Queries INT.DX CD.Queries INT.ORDDTDiagnosis: CD.Queries INT.OVID CD.Queries INT.OVORD CD.QueDiagnosis: sneha OECOM CD.Queries OM .PTARRIVED CD.Queries OM.Diagnosis: REASONTest performed at:[facility] [address] [place] [address] VLDL 20 mg/dL (Normal) Range: 5-40 LDL [...] 200-240 mg/dL Borderline >240 mg/dL High Risk 06-Cpy-824915:34 Thyroid Stim Hormone Comments: Interface Comments: IDR V0- [id number] [facility] [id number] V0-[id number] Main V0- [id number] Lab 20140827 1034 KEV WH2614 V0-[id number] Main2 LIVER Routine (TSH) 1 PA.MMURRA INT Main3 [id number] 1034 [id number] Transmitted LisData N [id number] 0788-1 OV LABORD CD.Queries INT.COM CD.Queries INT.DX CD.Queries INT.ORDDT CD.Queries INT.OVID CD.Queries INT.OVORD CD.Queries OECOM CD.Queries OM.PTARRIVED CD.Queries OM.REASONDiagnosis:Diagnosis: IDR V0-[id number] [facility] N556874 V0-B2014 00451Ncsgahoil: [id number] Main V0-[id number] Lab 20140827 1034Diagnosis: KEV WJ3349 V0-[id number] Main2 LIPID RoutDiagnosis: ine 1 PA.MMURRA INT Main3 1043758 6 1037 [id number]: 99296 Transmitted LisData N [id number] 90587-Jykgvcxbl: 1 OV LAB ORD CD.Queries INT.COM 12 HOURS FASTING,Diagnosis: MAY HAVE WATER. PLEASE SEND CO PY TO PRIMARY CAREDiagnosis: PHYSICIAN. CD.Queries INT.DX CD.Queries INT.ORDDTDiagnosis: CD.Queries INT.OVID CD.Queries INT.OVORD CD.QueDiagnosis: sneha OECOM CD.Queries OM .PTARRIVED CD.Queries OM.Diagnosis: REASONTest performed at:[facility] [address] [address] TSH 0.44 {uIU/mL} (Normal) Range: 0.358-3.74 33-Ehx-881544:34 Vitamin B12 439 pg/mL (Normal) Comments: Test performed at:[facility] [address] [place] [address] Range: 211-911 70-Oib-165084:34 Vitamin D,25 Hydroxy Comments: Test performed at:[facility] [address] [place] [address] Vitamin D 25-OH 45.3 ng/mL (Normal) Comments: Vitamin D 25(OH) Status Range Deficiency <20 ng/mL (50nmol/L) Insuffciency 20 - 30 ng/mL (50 - 75 nmol/L) Sufficiency 30 - 100 ng/mL (75 - 250 nmol/L) Toxicity >100 ng/mL (>250 nmol/L) 81-Fbk-014096:13 HgA1C , Office (60890) HgA1C , Office 5.5 % (Normal) Range: 4.6 - 7.1 02-Cdp-77048:07 URINE LOW CULTURE-IDENTIFICATN Comments: PATIENT NOT FASTINGPERFORMED BY: [facility]Silmit5521 [facility] [id number] Information: [id number] (35962) Antimicrobial MIHEAD (Normal) Comments: S = Susceptible; [...] primarily for treating urinary tract infections. (CLSI, R013-Q68,2009) Urine Final report (Abnormal) Culture,Comprehensive 68-Itm-44305:54 Urinalysis, Office (00922) UA - LEUKOCYTE ESTERASE Negative (Normal) UA [...] CHOL 191 mg/dL (Normal) Comments: <200 mg/dL Ouukyupbu921-608 mg/dL Borderline>240 mg/dL High Risk :54 LIVER BID 0.12 mg/dL (Normal) Range: 0.00-0.30 BIT 0.60 mg/dL (Normal) Range: 0.00-4.00 ALT 23 U/L (Normal) Range: 12-78 ALK 61 U/L (Normal) Range: 50-136 AST 13 U/L (Abnormal) Range: 15-37 ALB 3.8 g/dL (Normal) Range: 3.4-5.0 TPROT 7.0 g/dL (Normal) Range: 6.4-8.2 8-Zco-494192:34 CUUR URC See Note (Normal) Comments: ORGANISM [...] $ <=20 S(NF) indicates non-formulary drug at [facility]. Approval by Infectious DiseaseSpecialist required before non-formulary drugs may beordered and/or dispensed. 9-Jss-720561:33 [facility] Comments: How was Urine Obtained? INT [...] UCLAR Sl. Cloudy (Normal) UCOL Yellow (Normal) 42-Nkk-780979:54 VITAMIN B-12 (CYANOCOBALAMIN) Comments: PATIENT NOT FASTINGPERFORMED BY: [facility] Yhwcjm4316 [facility] [id number] (36982) Vitamin B12 439 pg/mL (Normal) Range: 211-946 63-Iea-944669:54 METABOLIC PANEL, COMPREHENSIVE Comments: PATIENT NOT FASTINGPERFORMED BY: [facility] Hjcrza5567 [facility] [id number] (45693) ALT (SGPT) 15 [iU]/L (Normal) Range: 0-32 [...] Glucose, Serum 97 mg/dL (Normal) Range: 65-99 76-Sie-380133:54 CBC WITH MANUAL DIFF Comments: PATIENT NOT FASTINGPERFORMED BY: [facility] Xsbwuw2693 [facility] [id number] Information: [id number] (48547) Immature Grans (Abs) 0.0 {x10E3/uL} (Normal) Range: [...] 3.77-5.28 WBC 5.3 {x10E3/uL} (Normal) Range: 3.4-10.8 72-Iyg-946295:44 PARATHORMONE (86397) Comments: PATIENT NOT FASTINGPERFORMED BY: [employer] Biosciences[address] [place] [id number] PTH, Intact 38 pg/mL (Normal) Range: 15-65 04-Khg-339051:44 TSH (THYROID STIMULATING Comments: PATIENT NOT FASTINGPERFORMED BY: [employer] [employer] Biosciences[employer] [place] [id number] Information: [id number] HORMONE) (24095) TSH 0.535 {uIU/mL} (Normal) Range: 0.450-4.500 05-Nio-656493:44 PHOSPHORUS (12256) Comments: PATIENT NOT FASTINGPERFORMED BY: [facility] [place]-clusterDublin [place] [id number] Phosphorus, Serum 2.9 mg/dL (Normal) Range: 2.5-4.5 43-Kpc-693777:21 Calcium Serum (00001) Comments: 10 days; PATIENT NOT FASTINGPERFORMED BY: [place] 9523270 [facility] [id number] Information: [id number] Calcium, Serum 10.3 mg/dL (Abnormal) Range: 8.6-10.2 86-Pwu-727839:32 Urinalysis, Office (76019) UA - LEUKOCYTE ESTERASE Negative (Normal) UA - NITRITE Negative (Normal) URINE UROBILINGN RUDDY TIMED Normal mg/dL (Normal) UA - PROTEIN Negative mg/dL (Normal) UA - PH 6.5 (Normal) UA - BLOOD Non Hemolyzed Trace (Normal) UA - SPECIFIC GRAVITY 1.010 (Normal) UA - KETONES Negative mg/dL (Normal) UA - BILIRUBIN Negative (Normal) UA - GLUCOSE Negative (Normal) 27-Zld-285941:41 URINE LOW CULTURE (RUDDY Comments: PATIENT NOT FASTINGPERFORMED BY: [address] [id number] Information: SRC: [id number] COL COUNT) (65140) Result 1 MUG (Normal) Comments: Mixed urogenital Colonies/mL Urine Culture,Comprehensive Final report (Normal) 6-Ngy-440484:12 CALCIUM SERUM (41980) Comments: redraw in 10 days; PATIENT NOT FASTINGPERFORMED BY: [place] 9523270 [facility] [id number] Information: [id number] Calcium, Serum 10.1 mg/dL (Normal) Range: 8.6-10.2 10-Ipl-762441:13 CBC WITH MANUAL DIFF Comments: PATIENT NOT FASTINGPERFORMED BY: [facility]6370 [facility] [id number] Information: [id number] (04493) Immature Grans (Abs) 0.0 {x10E3/uL} (Normal) Range: [...] 3.77-5.28 WBC 5.7 {x10E3/uL} (Normal) Range: 3.4-10.8 65-Urz-289615:13 METABOLIC PANEL, COMPREHENSIVE Comments: PATIENT NOT FASTINGPERFORMED BY: [facility]Vdsuai9360 [facility] [id number] (01407) ALT (SGPT) 15 [iU]/L (Normal) Range: 0-32 [...] Glucose, Serum 95 mg/dL (Normal) Range: 65-99 05-Ami-709412:13 URINE LOW CULTURE (RUDDY Comments: PATIENT NOT FASTINGPERFORMED BY: [facility] [id number] Information: SRC:UR [id number] COL COUNT) (44256) Result 1 ECV (Abnormal) Comments: Escherichia coli, [...] S Urine Final report Culture,Comprehensi (Abnormal) ve 23-Axh-214850:00 URINE LOW CULTURE-RUDDY COL Comments: PATIENT NOT FASTINGPERFORMED BY: [employer] [place] [id number] Information: SRC:UR [id number] COUNT (98595) Result 1 NG36 (Normal) Comments: No growth in 36 - 48 hours. Urine Culture,Comprehensive Final report (Normal) 57-Tkw-616887:45 Urinalysis, Office (02167) UA - LEUKOCYTE ESTERASE Negative (Normal) UA - NITRITE Negative (Normal) URINE UROBILINGN RUDDY TIMED Normal mg/dL (Normal) UA - PROTEIN 30 mg/dL (Normal) UA - PH 6 (Abnormal) UA - BLOOD Negative (Normal) UA - SPECIFIC GRAVITY 1.030 (Abnormal) UA - KETONES 15 mg/dL (Abnormal) UA - BILIRUBIN Small (Normal) UA - GLUCOSE Negative (Normal) 21-Diu-32645:51 Urinalysis, Office (73487) UA - LEUKOCYTE ESTERASE Negative (Normal) UA - NITRITE Negative (Normal) URINE UROBILINGN RUDDY TIMED Normal mg/dL (Normal) UA - PROTEIN Negative mg/dL (Normal) UA - PH 6 (Abnormal) UA - BLOOD Negative (Normal) UA - SPECIFIC GRAVITY 1.030 (Abnormal) UA - KETONES 15 mg/dL (Abnormal) UA - BILIRUBIN Negative (Normal) UA - GLUCOSE Negative (Normal) 66-Ylu-962058:47 URINE LOW CULTURE-RUDDY COL Comments: PATIENT NOT FASTINGPERFORMED BY: [facility] Upctuu5384 [facility] [id number] Information: SRC:UR [id number] COUNT (93334) Result 1 ECV (Normal) Comments: Escherichia coli, [...] S Urine Final report (Normal) Culture,Comprehensiv e 3-Jug-498573:41 HgA1C , Office (43858) HgA1C , Office 5.7 % (Normal) Range: 4.6 - 7.1 41-Enz-788673:59 Thin prep Pap Comments: Source.............Cervical;EndocervicalNo. of containers..01 CYTYC Thin Prep VialPATIENT NOT FASTINGPERFORMED BY: [facility] [address] [place] [id number] Information: [id number] (55893) Note: PAPSMR (Normal) Comments: The Pap smear [...] sm of the cervixJulie Sukh Burrows, Food Service Technician (ASCP) 7-Xdn-477591:06 LIPID PANEL (33202) Comments: PATIENT WAS FASTINGPERFORMED BY: [facility] Kxsscv6304 [facility] [id number] LDL/HDL Ratio 2.5 {ratio_units} (Normal) Range: 0.0-3.2 LDL Cholesterol Calc 138 mg/dL (Abnormal) Range: 0-99 VLDL Cholesterol Nahid 20 mg/dL (Normal) Range: 5-40 HDL Cholesterol 55 mg/dL (Normal) Comments: According to ATP-III Guidelines, HDL-C >59 mg/dL is considered anegative risk factor for CHD. Triglycerides 99 mg/dL (Normal) Range: 0-149 Cholesterol, Total 213 mg/dL (Abnormal) Range: 100-199 5-Cid-483307:06 MICROALBUMIN: CREATININE RATIO Comments: PATIENT WAS FASTINGPERFORMED BY: [facility] CenterOeddcl8085 [facility] [id number] (96744) AND (28444) Microalb/Creat Ratio 11.9 {mg/g_creat} (Normal) Range: 0.0-30.0 Microalbumin, Urine 15.8 ug/mL (Normal) Range: 0.0-17.0 Creatinine, Urine 132.4 mg/dL (Normal) Range: 15.0-278.0 1-Zxl-099596:06 METABOLIC PANEL, COMPREHENSIVE Comments: PATIENT WAS FASTINGPERFORMED BY: [place] Rmrlhz5269 [facility] [id number] (49836) ALT (SGPT) 22 [iU]/L (Normal) Range: 0-32 [...] Glucose, Serum 99 mg/dL (Normal) Range: 65-99 3-Zwd-022635:06 VITAMIN B-12 (CYANOCOBALAMIN) Comments: PATIENT WAS FASTINGPERFORMED BY: [facility]6370 [facility] [id number] (82006) Vitamin B12 1401 pg/mL (Abnormal) Range: 211-946 :06 CBC (AUTO) (48017) Comments: PATIENT WAS FASTINGPERFORMED BY: [facility]6370 [facility] [id number] Platelets 242 {x10E3/uL} (Normal) Range: 155-379 RDW 13.5 % (Normal) Range: 12.3-15.4 MCHC 33.5 g/dL (Normal) Range: 31.5-35.7 MCH 30.4 pg (Normal) Range: 26.6-33.0 MCV 91 fL (Normal) Range: 79-97 Hematocrit 41.8 % (Normal) Range: 34.0-46.6 Hemoglobin 14.0 g/dL (Normal) Range: 11.1-15.9 RBC 4.60 {x10E6/uL} (Normal) Range: 3.77-5.28 WBC 4.6 {x10E3/uL} (Normal) Range: 3.4-10.8 6-Lbv-356049:06 Vitamin D Hydroxy (07065) Comments: PATIENT WAS FASTINGPERFORMED BY: [facility]6370 [facility] [id number] Vitamin D, 25-Hydroxy 58.4 ng/mL (Normal) Range: 30.0-100.0 Comments: Vitamin D deficiency has been defined by the [place] ofMedicine and an Endocrine Society practice guideline as alevel of serum 25-OH vitamin D less than 20 ng/mL (1,2).The Endocrine Society went on to further define vitamin Dinsufficiency as a level between 21 and 29 ng/mL (2).1. IOM ([place] of Medicine). 2010. Dietary reference intakes for calcium and D. [place]: The National Academies Press.2. Robinson MF, Keila NC, Bruce ROBLES, et al. Evaluation, treatment, and prevention of vitamin D deficiency: an Endocrine Society clinical practice guideline. JCEM. 2010; 96(7):1911-30. :48 HgA1C , Office (29189) HgA1C , Office 5.2 % (Normal) Range: 4.6 - 7.1 :52 URINE LOW CULTURE-RUDDY COL Comments: PATIENT NOT FASTINGPERFORMED BY: [facility] Ybgfqy7159 [facility] [id number] Information: SRC:UR [id number] COUNT (68869) Result 1 MUG (Normal) Comments: Mixed urogenital wzkhu462 Colonies/mL Urine Culture,Comprehensive Final report (Normal) :53 Urinalysis, Office (42497) UA - BILIRUBIN Negative (Normal) UA - [...] performed. Images were obtained from T1 to [id number]. Sagittal and coronal images were reconstruc anum. [...] Saldaña M.D.February 10, 2013 at 2:48:17 PM [id number] Signed GP/GP If you are the referring physician and would like to consult with [employer] [facility] who provided this interpretation, please contact José Miguel Sheikh at [phone]. If this radiologist is unavailable, youwill be directed to another radiologist to assist. If you are a zenon ent with a question regarding this report, pleasecontactyour referring physician directly. Professional Interpretation Provided By: Lovely, Phone , These documents con tain legally [...] Rutherford M.D.February 10, 2013 at 4:25:07 PM [id number] Signed DN/DN If you are the referring physician and would like t o consult with theradiologist who provided this interpretation, please contact Court Lund M.D. at [phone]. If this radiologist is unavailable, youwillbe directed to another radiologist to rica bailon. If you are a patient with a question regarding this report, pleasecontactyour referring physician directly. Professional Interpretation Provided By: Lovely, Phone ,Fax These documents contain legally protected [...] on 02/10/131627 Sign by: COURT RUTHERFORD MD [id number] BRAIN/HEAD WITHOUT CONTRAST Radiology Report See Note [...] Saldaña M.D.January 23, 2013 at 3:28:07 PM [id number] Signed GP/GP If you are the referring [facility] and would like to consult with theradiologist who provided this interpretation, please contact José Miguel Sheikh at [phone]. If this radiologist is unavailable, youwill be directed to another radiologist to assist. If you are a patient with a question regarding this report, pleasecontactyour referring physician directly. Professional Interpretation Provided By: Lovely, Phone , These documents contain legally protected [...] METZ,Corey on 1531 Sign by: Michael METZ,Corey [id number] THORACIC SPINE 3 VIEWS Radiology Report See [...] Saldaña M.D.January 23, 2013 at 3:37:41 PM [id number] Signed GP/GP If you are the referring physician and would l elizabeth to consult with theradiologist who provided this interpretation, please contact José Miguel Sheikh at [phone]. If this radiologist is unavailable, youwill be directed to another radiologis t to assist. If you are a patient with a question regarding this report, pleasecontactyour referring physician directly. Professional Interpretation Provided By: Lovely, Phone ,Fax These documents contain legally protected [...] Microscopic Examination Comments: PATIENT WAS FASTINGPERFORMED BY: [employer] Sdeemo2220 [facility] [id number] Bacteria Few (Normal) Mucus Threads Present (Normal) Epithelial Cells (non renal) 0-10 {/hpf} (Normal) Range: 0 - 10 RBC 0-3 {/hpf} (Normal) Range: 0 - 3 WBC 0-5 {/hpf} (Normal) Range: 0 - 5 :11 URINALYSIS, W/ MICRO (62836) Comments: PATIENT WAS FASTINGPERFORMED BY: [employer] Inmzje5212 [facility] [id number] Microscopic Examination See below: (Normal) Microscopic Examination MICRON (Normal) Comments: Microscopic follows if indicated. Nitrite, Urine Negative (Normal) Urobilinogen,Semi-Qn 0.2 mg/dL (Normal) Range: 0.0-1.9 Bilirubin Negative (Normal) Occult Blood Negative (Normal) Ketones Negative (Normal) Glucose Negative (Normal) Protein Negative (Normal) WBC Esterase Negative (Normal) Appearance Clear (Normal) Urine-Color Yellow (Normal) pH 6.0 (Normal) Range: 5.0-7.5 Specific [place] 1.019 (Normal) Range: 1.005-1.030 :11 METABOLIC PANEL, Comments: PATIENT WAS FASTINGPERFORMED BY: Clodico Ramvul6682 [facility] [id number] Information: [id number] COMPREHENSIVE (90106) ALT (SGPT) 18 [iU]/L (Normal) Range: 0-32 [...] B-12 (CYANOCOBALAMIN) Comments: PATIENT WAS FASTINGPERFORMED BY: [employer] Porenv6932 [facility]in [place] [id number] (53932) Vitamin B12 314 pg/mL (Normal) Range: 211-946 :11 TSH (80409) Comments: PATIENT WAS FASTINGPERFORMED BY: [employer] Phyoaj5366 Bethea RoadDublin [place] [id number] TSH 0.679 {uIU/mL} (Normal) Range: 0.450-4.500 4-Apr-58021:11 Vitamin D Hydroxy (42083) Comments: PATIENT WAS FASTINGPERFORMED BY: [employer]6370 [facility] [id number] Vitamin D, 25-Hydroxy 69.4 ng/mL (Normal) Range: 30.0-100.0 Comments: Vitamin D deficiency has been defined by the [place] ofMedicine and an Endocrine Society practice guideline as alevel of serum 25-OH vitamin D less than 20 ng/mL (1,2).The Endocrine Society went on to further define vitamin Dinsufficiency as a level between 21 and 29 ng/mL (2).1. IOM ([place] of Medicine). 2010. Dietary reference intakes for calcium and D. [place]: The National Academies Press.2. Robinson MF, Keila AGUERO, Bruce ROBLES, et al. Evaluation, treatment, and prevention of vitamin D deficiency: an Endocrine Society clinical practice guideline. JCEM. 2010; 96(7):1911-30. 13-Nov-20129:11 LIPID PANEL (67108) Comments: PATIENT WAS FASTINGPERFORMED BY: [employer]6370 [facility] [id number] LDL/HDL Ratio 2.7 {ratio_units} (Normal) Range: 0.0-3.2 LDL Cholesterol Calc 130 mg/dL (Abnormal) Range: 0-99 VLDL Cholesterol Nahid 12 mg/dL (Normal) Range: 5-40 HDL Cholesterol 48 mg/dL (Normal) Comments: According to ATP-III Guidelines, HDL-C >59 mg/dL is considered anegative risk factor for CHD. Triglycerides 59 mg/dL (Normal) Range: 0-149 Cholesterol, Total 190 mg/dL (Normal) Range: 100-199 :33 EBV Panel (16065) Comments: PATIENT NOT FASTINGPERFORMED BY: [employer]6370 [facility] [id number] Interpretation: SPRCS (Normal) Comments: EBV Interpretation Chart [...] <0.9 Equivocal 0.9 - 1.0 Positive >1.0 73-Anz-81753:33 CBC WITH MANUAL DIFF Comments: PATIENT NOT FASTINGPERFORMED BY: [facility] Jsqpuv7006 [facility] [id number] Information: [id number] (20093) Immature Grans (Abs) 0.0 {x10E3/uL} (Normal) Range: [...] 3.77-5.28 WBC 5.3 {x10E3/uL} (Normal) Range: 4.0-10.5 77-Vcg-25461:06 BILAT SCRN DIGITAL & CAD Radiology Report [...] Saldaña M.D.July 30, 2012 at 8:47:07 AM [id number] Signed GP/GP If you are the referring physician and would like to consult with mariel hurd who provided this interpretation, please contact José Miguel Sheikh at [phone]. If this radiologist is unavailable, youwill be directed to another radiologist to assist. If you are a pa tient with a question regarding this report, pleasecontactyour referring physician directly. Professional Interpretation Provided By: Lovely, Phone , These documents c ontain legally [...] on 07/30/1258 Sign by: Corey Saldaña MD 54-Boc-559039:10 URINE LOW CULTURE-IDENTIFICATN Comments: PATIENT NOT FASTINGPERFORMED BY: [facility]Xdakhs5225 [facility] [id number] Information: [id number] (26505) Antimicrobial MIHEAD (Normal) Comments: S = Susceptible; [...] primarily for treating urinary tract infections. (CLSI, A301-O03,2009) Urine Final report (Normal) Culture,Comprehensive 10-Itl-710705:54 Urinalysis, Office (19584) UA - BILIRUBIN Negative (Normal) UA - BLOOD Negative (Normal) UA - GLUCOSE Negative (Normal) UA - KETONES Negative mg/dL (Normal) UA - LEUKOCYTE ESTERASE Trace (Normal) UA - NITRITE Negative (Normal) UA - PH 7.0 (Normal) UA - PROTEIN Negative mg/dL (Normal) UA - SPECIFIC GRAVITY 1.025 (Normal) URINE UROBILINGN RUDDY TIMED Normal mg/dL (Normal) 25-Gkv-08448:05 DEXA BONE DENSITY STUDY () Radiology Report [...] Saldaña M.D.May 06, 2012 at 1:38:17 PM [id number] Signed GP/GP If you are the referring physicia n and would like to consult with theradiologist who provided this interpretation, please contact José Miguel Sheikh at [phone]. If this radiologist is unavailable, youwill be directed to [facility] radiologist to assist. If you are a patient with a question regarding this report, pleasecontactyour referring physician directly. Professional Interpretation Provided By: Lovely, Phone , These documents contain legally protected [...] MD on 2 1346 Sign by: Corey Saldñaa MD 82-Nmt-030609:18 L/S SPINE,MIN 4 VIEWS Radiology Report See [...] EDTElectronically Signed GP/GP Professional Interpretation Provided By: [facility], , To consult with a radiologist regarding this report, please call our [id number] line @ Dictated on 01/09/12 1614 by Ninfa Saldaña MDranscribed on 01/10/121940 by ITS IMPORTSign by Corey Saldaña MD on 01/10/121941 Sign by: Corey Saldaña MD 9-Nga-005216:36 METABOLIC PANEL, COMPREHENSIVE Comments: PATIENT WAS FASTINGPERFORMED BY: [facility]Hdxyau7720 [facility] [id number] (37201) ALT (SGPT) 21 [iU]/L (Normal) Range: 0-40 [...] Glucose, Serum 92 mg/dL (Normal) Range: 65-99 5-Tbx-458655:36 LIPID PANEL (99452) Comments: PATIENT WAS FASTINGPERFORMED BY: [facility]Zlsfoi9638 [facility] [id number] LDL/HDL Ratio 2.5 {ratio_units} (Normal) Range: 0.0-3.2 LDL Cholesterol Calc 118 mg/dL (Abnormal) Range: 0-99 VLDL Cholesterol Nahid 15 mg/dL (Normal) Range: 5-40 HDL Cholesterol 48 mg/dL (Normal) Comments: According to ATP-III Guidelines, HDL-C >59 mg/dL is considered anegative risk factor for CHD. Triglycerides 76 mg/dL (Normal) Range: 0-149 Cholesterol, Total 181 mg/dL (Normal) Range: 100-199 3-Mvi-533462:36 Vitamin D Hydroxy (31134) Comments: PATIENT WAS FASTINGPERFORMED BY: [facility]6370 [facility] [id number] Vitamin D, 25-Hydroxy 36.0 ng/mL (Normal) Range: 30.0-100.0 Comments: Vitamin D deficiency has been defined by the [place] ofMedicine and an Endocrine Society practice guideline as alevel of serum 25-OH vitamin D less than 20 ng/mL (1,2).The Endocrine Society went on to further define vitamin Dinsufficiency as a level between 21 and 29 ng/mL (2).1. IOM ([place] of Medicine). 2010. Dietary reference intakes for calcium and D. [place]: The National Academies Press.2. Robinson MF, Keila AGUERO, Bruce ROBLES, et al. Evaluation, treatment, and prevention of vitamin D deficiency: an Endocrine Society clinical practice guideline. JCEM. 2010; 96(7):1911-30. :36 CBC WITH MANUAL DIFF Comments: PATIENT WAS FASTINGPERFORMED BY: [facility] Laohuh3220 [facility] [id number] Information: [id number] (41411) Immature Grans (Abs) 0.0 {x10E3/uL} (Normal) Range: [...] 3.80-5.10 WBC 4.3 {x10E3/uL} (Normal) Range: 4.0-10.5 90-Kdb-71206:35 BILAT SCRN DIGITAL & CAD Radiology Report [...] radiologist regarding this report, please call our [id number] line @ Dictated on 07/25/11 3244 by Michael METZ, Ninfaranscribed on 07/27/11 1144 by ITS IMPORTSign by Corey Saldaña MD on 07/27/11 1145 Sign by: Corey Saldaña MD 01-Joi-151551:59 URINE LOW CULTURE-IDENTIFICATN Comments: PERFORMED BY: [facility] Lkwhpj5102 [facility] [id number] Information: SRC: URINE (68567) Result 1 NG36 (Normal) Comments: No growth in 36 - 48 hours. Urine Culture,Comprehensive Final report (Normal) 89-Ctp-748002:31 URINE LOW CULTURE-RUDDY COL Comments: PATIENT NOT FASTINGPERFORMED BY: [facility] Xbvtvd6849 [facility] [id number] Information: SRC: URINE COUNT (66370) Antimicrobial MIHEAD (Normal) Comments: S = Susceptible; [...] primarily for treating urinary tract infections. (CLSI, W736-E07,2009) Urine Final report (Normal) Culture,Comprehensive 99-Uis-947198:06 Urinalysis, Office (05088) UA - BILIRUBIN Negative (Normal) UA - BLOOD Non Hemolyzed Moderate (Normal) UA - GLUCOSE Negative (Normal) UA - KETONES Negative mg/dL (Normal) UA - LEUKOCYTE ESTERASE Small (Normal) UA - NITRITE Negative (Normal) UA - PH 6.0 (Normal) UA - PROTEIN Negative mg/dL (Normal) UA - SPECIFIC GRAVITY 1.025 (Normal) URINE UROBILINGN RUDDY TIMED Normal mg/dL (Normal) 9-Ogi-228771:26 URINE LOW CULTURE-RUDDY COL Comments: PATIENT NOT FASTINGPERFORMED BY: ROMEO [facility] Vadtjc3716 [facility] [id number] Information: SRC: URINE COUNT (97899) Result 1 ECV (Normal) Comments: Escherichia coli, [...] STrimethoprim/Sulfa S Urine Final report (Normal) Culture,Comprehensive 9-Slg-914759:03 Urinalysis, Office (74816) UA - BILIRUBIN Negative (Normal) UA - BLOOD Hemolyzed Small (Normal) UA - GLUCOSE Negative (Normal) UA - KETONES Negative mg/dL (Normal) UA - LEUKOCYTE ESTERASE Negative (Normal) UA - NITRITE Negative (Normal) UA - PH 6.0 (Normal) UA - PROTEIN Negative mg/dL (Normal) UA - SPECIFIC GRAVITY 1.025 (Normal) URINE UROBILINGN RUDDY TIMED Normal mg/dL (Normal) 92-Hdm-83893:55 Urinalysis, Office (90793) UA - LEUKOCYTE ESTERASE Small (Normal) UA - NITRITE Negative (Normal) URINE UROBILINGN RUDDY TIMED Normal mg/dL (Normal) UA - PROTEIN Negative mg/dL (Normal) UA - PH 6.0 (Normal) UA - BLOOD Hemolyzed Trace (Normal) UA - SPECIFIC GRAVITY 1.025 (Normal) UA - KETONES Negative mg/dL (Normal) UA - BILIRUBIN Negative (Normal) UA - GLUCOSE Negative (Normal) 8-Msf-392156:23 DEXA BONE DENSITY STUDY (HP) Radiology Report See Note Comments: Exam Number: [id number] CLINICAL:This is a 64-year-old female patient with history of osteopenia. EXAMINATION:DUAL ENERGY X-RAY ABSORPTIOMETRY / DEXA. TECHNIQUE:Bone Density Measurements (BMD) of lumbar (Normal) spine and bilateral hipswere obtained using a [place] scanner.. COMPARISON:Comparison is made with prior examination [...] http://www.nof.org Reported By: COREY SALDAÑA 21-Dec-19 METHYLM 911850 1117 nmol/L Range: 73-376 1017:48 (Abnormal) Comments: The reference range for methylmalonic acid has been set at+3sd above the mean for healthy blood bank donors. In theclinical assessment of patients with megaloblastic anemiasa cutoff of +3sd provides gre ater specificity in thediagnosis of the vitamin deficiency states, despite thesacrifice of some sensitivity. 21-Dec-19 VIT D,25 44089 38.5 ng/mL Range: 32.0-100.0 1017:48 (Normal) Comments: Recent studies consider the lower limit of 32.0 ng/mL to marquita threshold for optimal health.Carlos HERNANDEZ. J Nutr. 2004;135(2):317- 22.Performed at: - [facility] [address] [id number] Director: Quincy Merida MDPerformed at: - [facility] [id number] Director: Britt Sanchez MD 4-Cmf-995833:24 CBCD,SMEAR DIFF RED CELL MORPH SeeNote {NORMAL} [...] 11.6-14.6 WBC 5.0 K/mm3 (Normal) Range: 4.4-11.0 3-Rmr-674953:23 VITAMIN B12 485 pg/mL (Normal) Range: 254-1320 1-Ttc-265537:23 TSH 0.60 {uIU/mL} (Normal) Range: 0.358-3.74 3-Uyc-506526:23 LIPID CHOL 203 mg/dL (Abnormal) Comments: <200 mg/dL Knkxdahsr458-699 mg/dL Borderline>240 mg/dL High Risk HDL 49 mg/dL (Normal) Comments: Reference RangeHDL <40 mg/dL Low HDL CholesterolHDL >or= 60 mg/dL High HDL Cholesterol LDL 130 mg/dL (Normal) Range: 0-130 TRIG 120 mg/dL (Normal) Comments: Serum Triglycerides Reference IntervalNormal <150 mg/dLBorderline high 150 - 199 mg/dLHigh 200 - 499 mg/ dLVery High > or = 500 mg/dL VLDL 24 mg/dL (Normal) Range: 5-40 3-Won-644873:23 COMP METABOLIC CO2 29.0 mmol/L (Normal) Range: [...] (Normal) GLU 95 mg/dL (Normal) Range: 70-110 1-Dcg-943494:21 BILAT SCRN DIGITAL & CAD Radiology Report See Note (Normal) Comments: Exam Number: [id number] MAMMOGRAM, BILATERAL SCREENING DIGITAL AND CAD HISTORYRoutine [...] werealso examined wit h computer-aided detection software ([email or web address].). Reported By: JOSHUA MCGEE M.D. 18-May-2009 VIT D,25 40091 81.6 ng/mL Range: 32.0-100.0 11:41 (Normal) Comments: Recent studies consider the lower limit of 32.0 ng/mL to marquita threshold for optimal health.Carlos HERNANDEZ. J Nutr. 2004;135(2):317- 22.Performed At: [facility]6[address] [place], [place] [id number] 11-Cyg-44277:59 COMP METABOLIC A/G 1.2 {RATIO} (Normal) Range: [...] VLDL 23 mg/dL (Normal) Range: 5-40 :59 PTH,GITZUA58132 PTH,Intact 54 pg/mL (Normal) Range: 15-65 Comments: Performed At: [address] [id number] :59 VIT D,25 72797 145.0 ng/mL (Abnormal) Range: 32.0-100.0 Comments: Recent studies consider the lower limit of 32.0 ng/mL to marquita threshold for optimal health.Carlos HERNANDEZ. J Nutr. 2004;135(2):317-22. 5-Vqg-445952:42 RIBS UNIL 2V NO CXR Radiology Report See Note (Normal) Comments: Exam Number: [id number] RIGHT RIBS 4 VIEWS STATEMENTRight rib pain. [...] No pneumothorax. Reported By: DALLIN VALENZUELA M.D. 4-Xzj-053208:39 CHEST, PA AND LATERAL Radiology Report See Note (Normal) Comments: Exam Number: [id number] CHEST PA AND LATERAL STATEMENTRib pain. COMPARISON [...] as described. Reported By: DALLIN VALENZUELA M.D. 7-Cnf-341648:2 CA 9.2 mg/dL (Normal) Comments: ORDERED LIPID,LIVERDR.THANH ORDERED VITD,PTH,TSH,CALCIUM,LIPID ORDERED CALCIUM,PTH,SPEP,UPEP 6 Range: 8.5-10.1 2-Quw-140251:26 LIPID Comments: ORDERED LIPID,LIVERDR.THANH ORDERED VITD,PTH,TSH,CALCIUM,LIPID ORDERED [...] mg/dL VLDL 11 mg/dL (Normal) Range: 5-40 0-Svk-085264:26 LIVER Comments: ORDERED LIPID,LIVERDR.THANH ORDERED VITD,PTH,TSH,CALCIUM,LIPID ORDERED CALCIUM,PTH,SPEP,UPEP ALB 3.7 g/dL (Normal) Range: 3.4-5.0 ALK P 59 U/L (Normal) Range: 50-136 ALT 34 U/L (Normal) Range: 30-65 AST 21 U/L (Normal) Range: 15-37 D BILI 0.07 mg/dL (Normal) Range: 0.00-0.30 T BILI 0.53 mg/dL (Normal) Range: 0.00-1.00 T PROT 6.8 g/dL (Normal) Range: 6.4-8.2 1-Fgg-306713:26 PROT.[id number] Comments: ORDERED LIPID,LIVERDR.FAST ORDERED VITD,PTH,TSH,CALCIUM,LIPID ORDERED CALCIUM,PTH,SPEP,UPEP ALBUMIN,UR 34.4 % (Normal) DCCJS-3-LQFC,U 2.8 % (Normal) GQCPL-4-KMTU,U 11.5 % (Normal) BETA GLOB,U 30.6 % (Normal) GAMMA GLOB,U 20.7 % (Normal) M-SPIKE,U SeeNote % (Normal) Comments: Result: Not Observed NOTE Comment (Normal) Comments: Protein electrophoresis scan will follow via mail orcourier. PROTEIN,UR 20.0 mg/dL (Abnormal) Range: 0.0-15.0 8-Gqn-143740:26 PTH,GEQNVV40208 Comments: ORDERED LIPID,LIVERDR.FAST ORDERED VITD,PTH,TSH,CALCIUM,LIPID ORDERED CALCIUM,PTH,SPEP,UPEP PTH,Intact 71 pg/mL (Abnormal) Range: 15-65 Comments: Performed At: [address] [id number] 8-Ima-131861:26 SPE [id number] Comments: ORDERED LIPID,LIVERDR.FAST ORDERED VITD,PTH,TSH,CALCIUM,LIPID ORDERED CALCIUM,PTH,SPEP,UPEP [...] orcourier. PROTEIN,TOTAL 6.6 g/dL (Normal) Range: 6.0-8.5 8-Vlb-308838:26 TSH 0.65 {uIU/mL} (Normal) Comments: ORDERED LIPID,LIVERDR.FAST ORDERED VITD,PTH,TSH,CALCIUM,LIPIDDR ORDERED CALCIUM,PTH,SPEP,UPEP Range: 0.34-4.82 :26 VIT D,25 21935 31.0 ng/mL (Abnormal) Comments: ORDERED LIPID,LIVERDR.FAST ORDERED VITD,PTH,TSH,CALCIUM,LIPIDDR. ORDERED CALCIUM,PTH,SPEP,UPEP Range: 32.0-100.0 Comments: Recent studies consider the lower limit of 32.0 ng/mL to marquita threshold for optimal health.Carlos HERNANDEZ. J Nutr. 2004;135(2):317-22. 27-Zzz-942116:15 LQD PAP 298133 Comments: CYTOLOGY INFORMATION:- CLINICAL INFORMATION: - DATE LMP/MENOPAUSE: LMP- COLLECTION VIAL: Thin Prep Vial- ASSOCIATE PROFESSOR OF SURGERY SOURCE: CERVICAL/ENDOCERVICAL- COLLECTION TECHNIQUE: BRUSH/SPATULA ADEQ Comment [...] no HPV testing was performed. .Performed At: [address] [id number] PAPR Comment (Normal) Comments: The Pap smear is a screening test designed to aid in thedetection of premalignant and malignant conditions of theuterine cervix. It is not a diagnostic procedure andshould not be used as the sole means of detecting cervicalcancer. Both false-positive and false-negative reports dooccur. . PERFORM Comment (Normal) Comments: Jossue Cantu, Food Service Technician ([facility]) 28-Hta-142015:23 UNILAT LT DIAG DIGITAL & CAD Radiology Report See Note (Normal) Comments: Exam Number: [id number] LEFT DIAGNOSTIC DIGITAL MAMMOGRAM CLINICAL INFORMATIONAbnormal mammogram. [...] mammograms werealso examined with computer-aided detection software ([employer] Reported By: DALLIN SAN M.D. 39-Pdg-39802:05 [facility]IL[facility]ITALN DIGITAL & CAD Radiology Report See Note (Normal) Comments: Exam Number: [id number] BILATERAL DIGITAL SCREENING MAMMOGRAM COMPARISONApril 2005. MLO [...] The mammogramswere also examined with computer-aided detection software([employer].). Reported By: YORDAN HILL M.D. :05 SPINE,LUMBAR (ROUTINE) Radiology Report See Note (Normal) Comments: Exam Number: [id number] MRI LUMBAR SPINE REASON FOR EXAMPersistent low [...] Report See Note (Normal) Comments: Exam Number: [id number] DEXA BONE DENSITY STUDY Done for osteopenia, [...] L5 onS1. Reported By: YORDAN HILL M.D. 9-Zzy-224357:13 Urinalysis, Office (77994) UA - BILIRUBIN Negative (Normal) UA - [...] PHOS 3.1 mg/dL (Normal) Range: 2.5-4.9 :52 PTH,ZSXMXX23577 PTH,Intact 77 pg/mL (Abnormal) Range: 12-65 :52 VITD 1,25 09610 55.1 pg/mL (Normal) Range: 15.9-55.6 Comments: Performed At: [address] [id number] At: Lab[address] [id number] 05-Low-436167:17 CHEST, PA AND LATERAL (MT) Radiology Report See Note (Normal) Comments: Exam Number: [id number] PA AND LATERAL CHEST HISTORYFollow up pneumothorax. [...] T PROT 6.6 g/dL (Normal) Range: 6.4-8.2 60-Jki-533603:40 CULTURE, URINE URINE CULTURE See Note {CFU/mL} (Normal) Comments: COLONY COUNT 1000-10,000 ORGANISM 1: MIXED GRAM POS & NEG ORGANISMS :39 L/S SPINE,MIN 4 VIEWS (MT) Radiology Report See Note (Normal) Comments: Exam Number: [id number] FIVE VIEW LUMBAR SPINE, AP, LATERAL, BOTH OBLIQUES, AND A SLJWU-AWVOE6-H7. HISTORYBeing done for low back pain. FINDINGSThere [...] correlation needed. Reported By: BRETT REYNA M.D. 49-Bfx-735433:23 BMP BUN 8 mg/dL (Normal) Range: 7-18 [...] 11 {IU/mL} (Normal) Range: 0-34 2:40 :40 PTH,YYMXQU74355 PTH,Intact 45 pg/mL (Normal) Range: 12-65 :40 VIT D,25 71656 88.1 ng/mL (Normal) Range: 32.0-100.0 Comments: Recent studies consider the lower limit of 32.0 ng/mL to marquita threshold for optimal health.Carlos BW. J Nutr. 2004;135(2):317-22. :40 VITD 1,25 54221 73.8 pg/mL (Abnormal) Range: 15.9-55.6 Comments: Performed At: Lab[address] [id number] At: CBLUniversity Health Lakewood Medical Centertyesha Aqhcnt0368 [place], [place] [id number] :39 LIPID CHOL 182 mg/dL (Normal) Comments: [...] 7.6 g/dL (Normal) Range: 6.4-8.2 :34 CALCULI 696699 CA OXAL DIHYDR 35 % (Normal) CA OXAL MONOHYD 15 % (Normal) CA PHOSPHATE 50 % (Normal) COLOR Archuleta (Normal) Comment Comment (Normal) Comments: Percentage (Represents the % composition) COMMENT Comment (Normal) Comments: Physician questions regarding Calculi Analysis contactLabCo at: [phone].Performed At: [address] [id number] NIDUS SeeNote (Normal) Comments: Result: No Nidus [...] GLU 2 HR GLU GTT-2 HOUR from 0504:N57622P. Range: 70-120 :50 GLU GTT-1 HOUR 176 mg/dL (Abnormal) Comments: 2HR GTT GLU 1 HR GLU GTT-1 HOUR from 0504:J71916D. Range: 120-170 :24 GLU GTT-30 min. 145 mg/dL (Normal) Comments: 2HR GTT GLU 1/2 HR GLU GTT-30 min. from 0504:N82279H. Range: 110-170 :50 GLU GTT-FASTING 73 mg/dL (Normal) Comments: 2HR GTT FASTING GLU GTT-FASTING from 4:C70241P. Range: 70-110 Comments: GLUCOSE TOLERANCE TEST Reference Interval Non- Adults Fasting 70 - 110 30 minutes 110 - 170 1 hour 120 - 170 2 hour 70 - 120 3 hour 70 - 110 4 hour 70 - 110 5 hour 70 - 110 17-Lvi-973750:36 CULTURE, URINE URINE CULTURE See Note {CFU/mL} [...] $$$ >=256 R TRIMETHOPRIM/SULFAMETHOXAZ $$ <=10 S 31-Idr-757477:36 ROUTINE UA BILIRUBIN URINE SeeNote (Normal) Comments: [...] 0.2 EU/dl (Normal) Range: 0.2 - 1.0 91-Fzu-086217:00 CULTURE, URINE URINE CULTURE See Note {CFU/mL} [...] 80,000-100,000 ORGANISM 1: MIXED GRAM POSITIVE ORGANISMS 3-Wzj-467075:25 CULTURE, URINE Comments: Precautions*: NOT APPLICABLE URINE [...] COMMENTS: NOWPrecautions*: NOT APPLICABLE 45 Range: 2.5-4.9 7-Ygt-846302:45 PTH,QAHTSU25395 Comments: COMMENTS: NOWPrecautions*: NOT APPLICABLE PTH,Intact 31 pg/mL (Normal) Range: 12-65 Comments: Performed At: [facility] [place], [place] [id number] 5-Dbj-451979:30 CALCULI 028503 Comments: COMMENTS: STONE ANALYSISPrecautions*: NOT APPLICABLE CA OXAL DIHYDR 55 % (Normal) CA OXAL MONOHYD 10 % (Normal) CA PHOSPHATE 35 % (Normal) COLOR Archuleta (Normal) Comment Comment (Normal) Comments: Percentage (Represents the % composition) COMMENT Comment (Normal) Comments: Physician questions regarding Calculi Analysis contactLabCo at: [phone].Performed At: [address] [id number] NIDUS SeeNote (Normal) Comments: Result: No Nidus [...] T PROT 5.9 g/dL (Abnormal) Range: 6.4-8.2 7-Dqx-553368:00 COMPLETE UA Comments: COMMENTS: ROOM 9Precautions*: NOT [...] (Normal) Range: 0-5 Comments: Result: 0-5 SEEN 0-Xav-465319:00 CULTURE, URINE Comments: COMMENTS: ROOM 9Precautions*: NOT [...] 11.6-14.6 WBC 7.9 K/mm3 (Normal) Range: 4.4-11.0 1-Lyx-522181:20 BMP Comments: Precautions*: NOT APPLICABLE BUN 14 [...] 3.5-5.1 NA 137 mmol/L (Normal) Range: 136-145 6-Vyr-444063:20 CBCD Comments: Precautions*: NOT APPLICABLE BASO% 0.1 [...] 11.6-14.6 WBC 12.4 K/mm3 (Abnormal) Range: 4.4-11.0 4-Ycp-862760:20 COMPLETE UA Comments: Precautions*: NOT APPLICABLE BACTERIA [...] (Normal) Range: 0-5 Comments: Result: 0-5 SEEN 94-Rjk-891256:52 Urinalysis, Office (43773) UA - BILIRUBIN Negative (Normal) UA - BLOOD Hemolyzed Large (Normal) UA - GLUCOSE Negative (Normal) UA - KETONES Negative mg/dL (Normal) UA - LEUKOCYTE ESTERASE Large (Normal) UA - NITRITE Positive (Normal) UA - PH 5.0 (Normal) UA - PROTEIN 30 mg/dL (Normal) UA - SPECIFIC GRAVITY 1.020 (Normal) URINE UROBILINGN RUDDY TIMED 2 mg/dL (Normal) 83-Sqy-864346:30 CULTURE, URINE URINE CULTURE See Note {CFU/mL} [...] $$$ 128 R TRIMETHOPRIM/SULFAMETHOXAZ $$ <=10 S [id number]:15 MANDI-D [id number] MANDI-DIRECT 23 U/mL (Normal) Range: 0-99 Comments: Negative <100 Equivocal 100 - 120 Positive >120Performed At: [facility] [id number] [place], [place] [id number] :15 B12/FOLATES 810 FOLATES,S 2013 > 24.0 [...] 5.6 K/mm3 (Normal) Range: 4.4-11.0 :15 CELIAC [id number] ANTIGLIADIN IGA <1 U/mL (Normal) Range: 0-4 [...] Fatigue Planned Observations CBC W/AUTO DIFF WBC (71589)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 On: [id number] Request MICROALBUMIN: CREATININE RATIO ([id number]) AND ([id number])Indication: Abnormal glucose tolerance test On: 5-Jvt-851795:22 Request METABOLIC PANEL, COMPREHENSIVE ([id number])Indication: Abnormal glucose tolerance test On: :22 Request CALCIUM SERUM ([id number])Indication: Hypercalcemia On: :13 Request PARATHORMONE ([id number])Indication: Hypercalcemia On: :13 Request Calcium Serum (21597)Indication: Hypercalcemia On: 60-Cld-191965:07 Request METABOLIC PANEL, COMPREHENSIVE (70799)Indication: Abnormal glucose tolerance test On: : Request VITAMIN B-12 (CYANOCOBALAMIN) (54009)Indication: Vitamin B12 deficiency (dietary) anemia On: : Request MICROALBUMIN: CREATININE RATIO (88104) AND ([id number])Indication: Abnormal glucose tolerance test On: : Request LIPID PANEL (46468)Indication: Other hyperlipidemia On: : Request Vitamin D Hydroxy (22307)Indication: Vitamin D deficiency, unspecified On: : Request CBC W/AUTO DIFF WBC (61674)Indication: Vitamin B12 deficiency (dietary) anemia On: :25 Request VITAMIN B-12 (CYANOCOBALAMIN) (98663)Indication: Vitamin B12 deficiency (dietary) anemia On: :14 Request MICROALBUMIN: CREATININE RATIO (34207) AND (25644)Indication: Abnormal glucose tolerance test On: :14 Request HGB A1C (74167)Indication: Abnormal glucose tolerance test On: :14 Request CBC (AUTO) ([id number])Indication: Calcium nephrolithiasis On: :13 Request Vitamin D Hydroxy (36660)Indication: Vitamin D deficiency, unspecified On: :13 Request LIPID PANEL ([id number])Indication: Other hyperlipidemia On: :13 Request METABOLIC PANEL, COMPREHENSIVE (61797)Indication: Other hyperlipidemia On: :13 Request MICROALBUMIN: CREATININE RATIO (91017) AND (67839)Indication: Abnormal glucose tolerance test On: :32 Request Hemoglobin Glyclated (HGB A1C) (30379)Indication: Abnormal glucose tolerance test On: 49-Vxe-38229:32 Request METABOLIC PANEL, COMPREHENSIVE (64034)Indication: Other hyperlipidemia On: :32 Request LIPID PANEL (94832)Indication: Other hyperlipidemia On: :31 Request VITAMIN B-12 (CYANOCOBALAMIN) (65939)Indication: Vitamin B12 deficiency (dietary) anemia On: :31 Request CBC W/AUTO DIFF WBC (23609)Indication: Vitamin B12 deficiency (dietary) anemia On: :31 Request VITAMIN B-12 (CYANOCOBALAMIN) (04696)Indication: Vitamin B12 deficiency (dietary) anemia On: :22 Request LIPID PANEL (16558)Indication: Other hyperlipidemia On: :22 Request METABOLIC PANEL, COMPREHENSIVE (83507)Indication: Abnormal glucose tolerance test On: 43-Oxz-882022:21 Request URINE LOW CULTURE-RUDDY COL COUNT (31459)Indication: Dysuria (Renamed from Difficult or painful urination) On: 21-Nsx-723996:54 Request CBC, PLATELETS & AUT DIFF (79372)Indication: Vitamin B12 deficiency (dietary) anemia On: 1-Zpq-688094:42 Request VITAMIN B-12 (CYANOCOBALAMIN) (72195)Indication: Vitamin B12 deficiency (dietary) anemia On: 5-Zdi-933871:42 Request Vitamin D Hydroxy (29917)Indication: Vitamin D deficiency, unspecified On: 0-Amj-229654:41 Request LIPID PANEL (64420)Indication: Other hyperlipidemia On: 7-Ril-574450:41 Request METABOLIC PANEL, COMPREHENSIVE (94920)Indication: Other hyperlipidemia On: 6-Pkd-661301:41 Request METABOLIC PANEL, COMPREHENSIVE (88954)Indication: Osteoporosis (Renamed from OP (osteoporosis)) On: 88-Uxl-323104:41 Request UPEP ([id number])Indication: Osteoporosis (Renamed from OP (osteoporosis)) On: 91-Dhd-678405:28 Request SPEP ([id number])Indication: Osteoporosis (Renamed from OP (osteoporosis)) On: 33-Ccx-994343:28 Request TSH ([id number])Indication: Fluid retention On: 86-Mbi-557510:43 Request Vitamin D Hydroxy (63517)Indication: Vitamin D deficiency, unspecified On: :29 Request VITAMIN B-12 (CYANOCOBALAMIN) ([id number])Indication: Vitamin B12 deficiency (dietary) anemia On: :29 Request CBC W/AUTO DIFF WBC (05983)Indication: Vitamin B12 deficiency (dietary) anemia On: :29 Request METABOLIC PANEL, COMPREHENSIVE (23626)Indication: Fluid retention On: :29 Request URINE LOW CULTURE (RUDDY COL COUNT) (70053)Indication: Hematuria On: :11 Request URINE LOW CULTURE-RUDDY COL COUNT (41450)Indication: Hematuria On: :56 Request URINALYSIS, W/ MICRO ([id number])Indication: Hematuria On: :54 Request Parathyroid Hormone-related Peptide (PTH-rP) (53846)Indication: Fatigue On: 07-Krn-321009:17 Request VITAMIN B-12 (CYANOCOBALAMIN) (90340)Indication: Vitamin B12 deficiency (dietary) anemia On: 8-Jcg-726287:03 Request METABOLIC PANEL, COMPREHENSIVE (12457)Indication: Abnormal glucose tolerance test On: 9-Zlb-789213:03 Request CBC WITH MANUAL DIFF ([id number])Indication: Vitamin B12 deficiency (dietary) anemia On: 6-Bek-503752:02 Request Vitamin D Hydroxy (69732)Indication: Vitamin D deficiency, unspecified On: 9-Pgi-217660:02 Request LIPID PANEL (36709)Indication: Other hyperlipidemia On: :02 Request CREATININE BLOOD (04865)Indication: Other hyperlipidemia On: 1-Daq-328924:47 Request Vitamin D Hydroxy (68694)Indication: Vitamin D deficiency, unspecified On: :37 Request VITAMIN B-12 (CYANOCOBALAMIN) (46346)Indication: Vitamin B12 deficiency (dietary) anemia On: :37 Request METABOLIC PANEL, COMPREHENSIVE (40656)Indication: Osteopenia On: :28 Request TSH ([id number])Indication: Osteopenia On: :28 Request CBC WITH MANUAL DIFF (47305)Indication: Vitamin B12 deficiency (dietary) anemia On: :27 Request VITAMIN B-12 (CYANOCOBALAMIN) (83666)Indication: Vitamin B12 deficiency (dietary) anemia On: : Request LIPID PANEL (75241)Indication: Other and unspecified hyperlipidemia On: : Request Vitamin D Hydroxy (40793)Indication: Vitamin D deficiency, unspecified On: : Request METABOLIC PANEL, COMPREHENSIVE (34426)Indication: Palpitations On: :32 Request CBC WITH MANUAL DIFF ([id number])Indication: Vitamin B12 deficiency (dietary) anemia On: : Request Vitamin D Hydroxy (63837)Indication: Vitamin D deficiency, unspecified On: : Request LIPID PANEL (15061)Indication: Other hyperlipidemia On: : Request VITAMIN B-12 (CYANOCOBALAMIN) (31567)Indication: Vitamin B12 deficiency (dietary) anemia On: : Request URINE LOW CULTURE-IDENTIFICATN (80994)Indication: recurrent uti On: : Request Urinalysis, Office (63822)Indication: Cystitis, acute On: :57 Request VITAMIN B-12 (CYANOCOBALAMIN) (69302)Indication: Vitamin D deficiency, unspecified On: :30 Request CALCIFEDIOL (22214)Indication: Vitamin D deficiency, unspecified On: :30 Request URINALYSIS (25872)Indication: Vitamin D deficiency, unspecified On: :30 Request TSH (THYROID STIMULATING HORMONE) ([id number])Indication: Vitamin D deficiency, unspecified On: :30 Request CBC, PLATELETS & AUT DIFF (67533)Indication: Vitamin D deficiency, unspecified On: :30 Request METABOLIC PANEL, COMPREHENSIVE (43155)Indication: Vitamin D deficiency, unspecified On: :30 Request LIPID PANEL (89853)Indication: Other hyperlipidemia On: :30 Request URINALYSIS W/O MICRO (31859)Indication: Low back pain On: : Request Creatine (72257)Indication: Low back pain On: 81-Cld-689877:13 Request BUN (Blood Urea Nitrogen) (07668)Indication: Low back pain On: 94-Wac-497895:13 Request Creatine (03346)Indication: Low back pain On: 40-Pnk-213154:42 Request Creatine (39580)Indication: Unspecified Diagnosis On: 09-Ark-301054:34 Request LIPID PANEL (60179)Indication: Other and unspecified hyperlipidemia On: 69-Sau-465801:22 Request HEPATIC FUNCTION PANEL (63893)Indication: Other and unspecified hyperlipidemia On: 76-Dqm-554382:22 Request Vitamin D Hydroxy (03082)Indication: Vitamin D deficiency, unspecified On: 00-Xqv-001558:11 Request VITAMIN B-12 (CYANOCOBALAMIN) (01339)Indication: methylmalonic acid elevatin On: 07-Ktb-557784:11 Request Methylmalonic acid, serum 62126Iyqqvoseio: Fatigue On: 03-Rhd-178522:08 Request VITAMIN B-12 (CYANOCOBALAMIN) (14078)Indication: Fatigue On: 35-Kjy-905635:08 Request TSH ([id number])Indication: Palpitations On: 17-Lfz-091947:06 Request METABOLIC PANEL, COMPREHENSIVE ([id number])Indication: Palpitations On: 46-Oej-566380:06 Request CBC WITH MANUAL DIFF (75583)Indication: Palpitations On: 44-Rgj-187328:06 Request LIPID PANEL (40356)Indication: Other and unspecified hyperlipidemia On: 76-Jnw-962758:05 Request Vitamin D Hydroxy (06758)Indication: Osteopenia On: 01-Zln-203765:05 Request Vitamin D Hydroxy (46108)Indication: Vitamin D deficiency, unspecified On: 4-Dby-205082:10 Request METABOLIC PANEL, COMPREHENSIVE (94286)Indication: Other and unspecified hyperlipidemia On: :26 Request LIPID PANEL (61856)Indication: Other and unspecified hyperlipidemia On: :26 Request PARATHORMONE (74562)Indication: Osteopenia On: 65-Ypi-438038:15 Request Vitamin D Hydroxy (90966)Indication: Vitamin D deficiency, unspecified On: 24-Caj-850327:15 Request LIPID PANEL (59161)Indication: Other and unspecified hyperlipidemia On: 52-Zdr-765910:01 Request CALCIUM SERUM (55845)Indication: Osteopenia On: 33-Icr-716847:00 Request TSH ([id number])Indication: Osteopenia On: 83-Kiz-834078:00 Request PARATHORMONE (51887)Indication: Osteopenia On: 62-Nnq-082716:00 Request Vitamin D Hydroxy (86651)Indication: Osteopenia On: 46-Xgr-360420:58 Request FECAL OCCULT HGB ASSAY- tubes sent home (81060)Indication: Well woman exam with routine gynecological exam On: 76-Wxc-425279:39 Request OCCULT BLOOD FECES SCREEN- card done in office (18119)Indication: Well woman exam with routine gynecological exam On: :39 Request Thin prep Pap (73989)Indication: Well woman exam with routine gynecological exam On: 61-Aza-539284:39 Request Comments: vaginal cuff LIPID PANEL (12799)Indication: Other and unspecified hyperlipidemia On: 6-Qla-399792:58 Request HEPATIC FUNCTION PANEL (79536)Indication: Other and unspecified hyperlipidemia On: 0-Bzn-250073:58 Request CALCIUM SERUM (20689)Indication: Osteopenia On: 9-Xrj-619313:58 Request PHOSPHORUS (62707)Indication: Osteopenia On: 7-Oas-600843:58 Request PARATHORMONE (06126)Indication: Osteopenia On: 3-Bvf-700522:58 Request VITAMIN D, 1, 25-DIHYDROXY (07881)Indication: Osteopenia On: 7-Ogw-040230:58 Request URINE LOW CULTURE-RUDDY COL COUNT (81271)Indication: Dysuria On: 74-Kdx-072384:35 Request Urinalysis, Office (04689)Indication: Dysuria On: 08-Kez-353899:35 Request VITAMIN D, 1, 25-DIHYDROXY (24131)Indication: Vitamin D deficiency, unspecified On: 3-Mss-918509:01 Request URINE LOW CULTURE-IDENTIFICATN (81067)Indication: Dysuria On: 24-Ckk-724680:06 Request Celiac Disease Antibody Profile (71885) x3 & (02424) X2- gliadin IgA, IgG and reticulin IgA, IgG and tissue transglutaminase IgA.Indication: Abdominal pain, acute, generalized On: 85-Fwq-043953:38 Request MANDI (ANTINUCLEAR ANTIBODY) (33282)Indication: Fatigue On: :37 Request C-REACTIVE PROTEIN (89062)Indication: Fatigue On: :37 Request CBC (AUTO) (04063)Indication: Fatigue On: :37 Request Folate (28709)Indication: Fatigue On: :37 Request METABOLIC PANEL, COMPREHENSIVE (99090)Indication: Fatigue On: :37 Request RHEUMATOID FACTOR-QUANT (68496)Indication: Fatigue On: :37 Request SED RATE ERYTHROCYTE (41250)Indication: Fatigue On: :37 Request TSH (52903)Indication: Fatigue On: :37 Request VITAMIN B-12 (CYANOCOBALAMIN) (44759)Indication: Fatigue On: :37 Request Planned Encounters Medical; [facility] Pre Wellness Exam (DF Nurse) - On: 15-Aug-2018 8:00 [facility] NURSE, [facility] Medical; [facility] Wellness Exam (Doctor) - On: 29-Aug-2018 8:45 [facility] Fast DO, Audrey A Fast DO, Audrey A Planned Procedures XR HEEL LEFT (12780)By: Thanh CASTRO, On: 29-Apr-2018 Intent Audrey A Fast DO, Audrey A Flu Vaccine (Quadrivalent) 54122Um: On: 29-Apr-2018 Intent Thanh DO, Audrey A Fast DO, Audrey A Comments: Lot: [id number]: 02/08/19Site: L dltd, IMDose prefilled syringegiven by: Jovon reviewed and ABN signed Spirometry (32013)By: Geovanna CASTRO, On: 16-Jan-2018 Intent Minoo Comments: #2-mild obstruction Radiology - Chest- PA and LatBy: On: 16-Jan-2018 Intent Minoo Austin DO Aerosol Treatment (58313)By: Geovanna On: 16-Jan-2018 Minoo Jackson DO Comments: much more a/e no wheeze jose uch better Solu- Medrol Injection, 125mg On: 16-Jan-2018 Intent (J2930)By: Minoo Austin DO Comments: solumedrol 125mg injectionlot: [id number]: GMpt tolerated wellAD MONUMENT LETTERER Spirometry (85519)By: Geovanna CASTRO, On: 16-Jan-2018 Intent Minoo Comments: mod severe obstruction #1 Breast Ultrasound - LeftBy: Thanh CASTRO, On: 09-Oct-2017 Intent Audrey Law DO Audrey A MRI OF BRAIN WITH AND WITHOUT On: 10-Sep-2017 Intent CONTRAST ([id number])By: Audrey Law DO, DO, Audrey A SCREENING DIGITAL TOMOSYNTHESIS OF On: 10-Sep-2017 Intent BREAST (83507)By: Audrey Law DO, DO, Audrey A ELECTROCARDIOGRAM, COMPLETE (ECG) On: 10-Sep-2017 Intent (88769)By: Audrey Law DO, DO, Comments: ekg showed normal sinus rhythym, normal axis, no acute st/t wave changes sinus hyun Audrey A Solu -Medrol Injection, 125 mg On: 08-Apr-2017 Intent (J2930)By: Audrey Law DO, DO, Audrey A Spirometry (48265)By: Thanh CASTRO, On: 21-Sep-2016 Intent Audrey Law DO Audrey A Comments: good effort and curve mod obstruction Aerosol Treatment (11364)By: Thanh On: 20-Aug-2016 Audrey Jackson DO, DO Audrey A Comments: with albuterol Phenergan Injection, up to 50 mg On: 20-Aug-2016 Intent (J2550)By: Audrey Law DO, DO, Comments: lot:[id number]: 03/28site/route: LGM/IMamt: 25mgVIS signed when applicableBITA Akbar A Radiology - Chest- PA and LatBy: On: 24-Jul-2016 Intent Audrey Law DO, DO, Uadrey A DEXA SCAN AXIAL SKELETON (20924)By: On: 08-May-2016 Intent Thanh CASTRO Audreysue Law DO, Audrey A Comments: end jul MAMMOGRAM, SCREENING, BOTH BREAST On: 08-May-2016 Intent (13776)By: Audrey Law DO, DO, Audrey A Flu Vaccine (Quadrivalent) 69996Bm: On: 08-May-2016 Intent Fast DO, Audrey A Fast DO, Audrey A Comments: Lot #:[id number] date:02/08/17mount given:0.5mlRoute: IMSite given: left deltoidGiven by: [...] 18-Aug-2015 Intent Michelle Gerber Flu Vaccine (Quadrivalent) 66776Gr: On: 27-May-2015 Intent Thanh CASTRO, Audrey A Fast DO, Audrey A Comments: lot [id number]: 02/09/2016site/route L agnieszka, IMamt 0.5mlVIS and ABN signed when applicableChelsea, CMAFM4 ADMINISTRATION OF INFLUENZA VIRUS On: 27-May-2015 Intent VACCINE (G0008)By: Gurdeep Law DOa A Fast DO, Audrey A 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 On: 23-Nov-2014 Intent (39839)By: Ashley Gan CNP COMP EYE EXAMINATION, ESTAB PATIENT On: 18-Oct-2014 Intent (43937)By: Ashley Gan CNP MAMMOGRAM, SCREENING, BOTH BREAST On: 10-Sep-2014 Intent ([id number])By: Audrey Law DO Fast DO, Audrey A Radiology - ChestBy: Marbella METZ, On: 29-Jul-2014 Intent Michelle Gerber ELECTROCARDIOGRAM, COMPLETE (ECG) On: 29-Jul-2014 Intent (93076)By: Michelle Tyson MD Comments: see scanned document of test done to see results reviewed today with patient Prevnar 13 ([id number])By: Fast DO, On: 21-Jun-2014 Intent Audrey A Fast DO, Audrey A Comments: Lot #:[id number] date:10/2015Amount given:0.5mlRoute: IMSite given: left deltoidGiven by: NEGRITA Gavin DEXA SCAN AXIAL SKELETON (87353)By: On: 21-Jun-2014 Intent Fast DO, Audrey A Fast DO, Audrey A IMMUNIZ ADMNIN, 1 VAC, SNGL/COMBO On: 09-Jun-2014 Intent (63776)By: Fast DO, Audrey A Fast DO, Comments: lot:[id number]:02/08/2015dose:0.5mLRoute: IMlocation: L armgiven by: josselyn velázquez Audrey A FLU VAC, SPLIT, >3 YEARS, INTRAMUSC On: 09-Jun-2014 Intent ([id number])By: Christine Palma MRI - BrainBy: Fast DO, Audrey A Fast On: 23-Mar-2014 Intent DO, Audrey A Radiology - Cervical SpineBy: Fast On: 29-Dec-2013 Intent DO, Audrey A Fast DO, Audrey A CT - ChestBy: Fast DO, Audrey A Fast On: 29-Dec-2013 Intent DO, Audrey A Eprescribed prescriptions ([id number])By: On: 07-Sep-2013 Intent Juliana Shook MAMMOGRAM, SCREENING, BOTH BREASTS On: 20-Aug-2013 Intent (80019)By: Fast DO, Audrey A Fast DO, Audrey A Eprescribed prescriptions (G8553)By: On: 20-Aug-2013 Intent Juliana Shook PNEUM VAC ADLT/IMUMNOSPR, SBC/INTRM On: 25-May-2013 Intent (89175)By: Fast DO, Audrey A Fast DO, Comments: Lot #[id number]-L arm, dltd, IMDose-prefilled syringegiven by:STARR Renteria signed Audrey A Pap Smear, Medicare (Q0091)By: On: 25-May-2013 Intent Juliana Shook Pelvic and Breast, Medicare On: 25-May-2013 Intent (G0101)By: Juliana Shook ADMINISTRATION OF INFLUENZA VIRUS On: 14-May-2013 Intent VACCINE (G0008)By: Geovanna CASTRO, Comments: Lot #[id number]-L dltd, IMDose prefilled syringegiven by:STARR Renteria and ABN signed Minoo FLU VAC, SPLIT, >3 YEARS, INTRAMUSC On: 14-May-2013 Intent (13649)By: Minoo Austin DO Eprescribed prescriptions (G8553)By: On: 06-Mar-2013 Intent Juliana Shook B 12 Injection, 1000 mcg (J3420)By: On: 06-Mar-2013 Intent Juliana Shook 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 On: 20-Feb-2013 Intent (31912)By: Virginie Ambriz LPN MRI - BrainBy: Fast [...] THER/PROPH/DIAG IV INF, INIT On: 22-Aug-2012 Intent (97192)By: Ashley Gan CNP INFUSION, NORMAL SALINE SOLUTION , On: 22-Aug-2012 Intent 250 CC (J7050)By: Ashley Gan CNP Rocephon Injection, 1 Gm (J0696)By: On: 22-Aug-2012 Intent Ashley Gan CNP B 12 Injection, 1000 mcg (J3420)By: On: 01-Jul-2012 Intent Fast DO, Audrey A Fast DO, Audrey A Comments: Lot:[id number]:Dose:1MLRoute:IMSite:L armGiven By:DEBRA Eprescribed prescriptions (G8553)By: On: 01-Jul-2012 Intent Juliana Shook FLU VAC, SPLIT, >3 YEARS, INTRAMUSC On: 27-May-2012 Intent (56275)By: Juliana Shook Comments: Lot:[id number]:6.30.13Dose:prefilledRoute:IMSite:L DltdGiven By:AUDREY signed MAMMOGRAM, SCREENING, BOTH BREASTS On: 27-May-2012 Intent (98159)By: Audrey Law DO, DO, Comments: mid jul Audrey A ADMINISTRATION OF INFLUENZA VIRUS On: 27-May-2012 Intent VACCINE (G0008)By: Juliana Shook Toradol Injection, 30 mg (J1885)By: On: 09-Jan-2012 Intent Ciesa Ashley RAMIREZ Comments: 1 ml given im lt hip lot [id number] exp 08/25 Radiology - Lumbar SpineBy: Ciesa On: 09-Jan-2012 Intent Ashley RAMIREZ DXA, BONE DENSITY, AXIAL SKELETON On: 18-Dec-2011 Intent (64209)By: Audrey Law DO, DO, Comments: due in january Audrey A TDAP VACCINE >7 IM (51362)By: On: 18-Dec-2011 Intent Juliana Shook Comments: received at work 11/2011 MAMMOGRAM, SCREENING, BOTH BREASTS On: 03-Jul-2011 Intent (54093)By: Gurdeep Law DOa Sue Fast DO, Audrey A CT - Abdomen & Pelvis Stone On: 03-Jul-2011 Intent ProtocolBy: Thanh CASTRO, Audrey A Fast DO, Audrey A FLU VAC, SPLIT, >3 YEARS, INTRAMUSC On: 03-Jul-2011 Intent (61059)By: Juliana Shook Comments: received at work 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 On: 11-May-2011 Intent (07734)By: Virginie Ambriz LPN MRI - Thoracic Spine (IV Contrast On: 17-May-2010 Intent Needed)By: Juliana Shook MAMMOGRAM, SCREENING, BOTH BREASTS On: 17-May-2010 Intent (16515)By: Gurdeep Law DOa Sue Law DO, Comments: dec Audrey A Radiology - Lumbar SpineBy: Ciesa On: 10-May-2010 Intent Ashley RAMIREZ THER/PROPH/DIAG INJ, SC/IM On: 10-May-2010 Intent (31302)By: Ashley Gan CNP INJECTION, VITAMIN B-12 On: [...] BONE DENSITY, AXIAL SKELETON On: 09-Nov-2009 Intent (46816)By: Fast DO, Audrey A Fast DO, Audrey A MAMMOGRAM, SCREENING, BOTH BREASTS On: 19-May-2009 Intent (67003)By: Fast DO, Audrey A Fast DO, Audrey A Qtwdcmiug-Kjn-Tmrgt (32387)By: Thanh On: 07-Sep-2008 Intent DO, Audrey A Fast DO, Audrey A Radiology - ChestBy: Fast DO, Audrey On: 07-Sep-2008 Intent A Fast DO, Audrey A Comments: pa and lat Pulse Oximetry (70466)By: Malik RAMIREZ, On: 27-Jul-2008 Intent Adelaida Aerosol Treatment (13631)By: Malik On: 27-Jul-2008 Intent Ashley RAMIREZ PHYSICAL THERAPY EVALUATION On: 29-Jun-2008 Intent (07619)By: Ashley Gan CNP Pulse Oximetry (06701)By: Malik RAMIREZ, On: 14-Jan-2008 Intent Adelaida Aerosol Treatment (03689)By: Malik On: 14-Jan-2008 Intent Ashley RAMIREZ MAMMOGRAM, SCREENING, BOTH BREASTS On: 17-Dec-2007 Intent (03670)By: Thanh DO Audrey A Fast DO, Audrey A MRI - Lumbar SpineBy: Fast DO, Audrey On: 17-Dec-2007 Intent A Fast DO, Audrey A Comments: hx of recent multiple trauma-osteoporosis-- ddd and significant pain DXA, BONE DENSITY, AXIAL SKELETON On: 17-Dec-2007 Intent (37687)By: Fast DO, Audrey A Fast DO, Audrey A EKG (27084)By: Juliana Shook On: 17-Dec-2007 Intent Comments: ekg showed normal sinus rhythym, normal axis, no acute st/t wave changes with pacs Spirometry (90812)By: Thanh CASTRO, On: 04-Sep-2007 Intent Audrey A Fast DO, Audrey A Comments: good effort and curve - mild obstruction Radiology - ChestBy: IRA RAMIREZ, On: 22-Jul-2006 Intent KRISHAN Ear Irrigation (13028)By: IRA On: 22-Jul-2006 Intent KRISHAN RAMIREZ Planned Medications INFUSION, NORMAL SALINE SOLUTION , 250 CC Ordered: 22-Aug-2012 Pending Ciesa ASHLEY, Adelaida INJECTION, CEFTRIAXONE SODIUM, PER 250 MG Ordered: 22-Aug-2012 Pending Ciesa UPKEEP WORKER, Adelaida INJECTION, KETOROLAC TROMETHAMINE, PER 15 MG Ordered: 09-Jan-2012 Pending Ciesa UPKEEP WORKER, Adelaida INJECTION, METHYLPREDNISOLONE SODIUM SUCCINATE, UP TO [...] unspecified hyperlipidemia : DISCONTINUED - LIPID PANEL (21579) Indication: Other and unspecified hyperlipidemia Moderate persistent [...] few days- feeling worse again- was in [employer] 3 weeks ago maybe this caused- no [...] - had walked that morning at the [facility]- she not walk barefoot has been [...] are no current emotional problems. screening, colonoscopy ([facility] Dr. Galeana). Note for Physical exam: feels really good- walking 2 miles every morning at the [facility] 5 days a week-- and doing [...] Skin lesions: [facility] [...] are no current emotional problems. screening, colonoscopy ([facility] Dr. Galeana). Note for Physica l exam: she is up 5 pounds has started weight lifting 3 times a week at the [employer]- her bp is good- the symbicort was [...] stone- on cipro right now- leaving for [place] next ), has decreased energy level and [...] surgery tomorrow with Dr. Jalil Machado at [facility].- had left stone and stent in uterer [...] The patient does have durable power of document review attorney and living will. The patient has noticed nothing from the geriatic depression scale. Other providers contributing to the patient's care are supervisor [employer] and other: (opthmologist and neurologist). Note for [...] (post-aide). Encounter Diagnosis: Annual physical exam (V70.0), [facility] Woman Exam , Medicare (V76.2) (Renamed [...] are on paper- had them done at [facility]. Pt is currently on Macrobid for [...] Pt also had a ct abd at [facility]- called for results to be faxed.Encounter Diagnosis: [...] - she does twice at week in [employer]- she is back to work 2 half [...] Hands also feel stiff with bread. [facility], Dr. Reilly have done work [...]
--- OUTSIDE RECORDS SUMMARY | 2018-10-29 16:57 | XMS RPT_ITS | Continuity of Care Document ---
:1945 Author Organization [facility] Address [facility] [place] [address] Phone Care Team Providers Name Role Phone [...] days Quantity: 1 {Box} Refills: 0 Ordered:16-Jan-2018 Geovanna DO Minoo Start : 16-Jan-2018 Active CoQ10 10 MG Oral Capsule qd [...] Quantity: 10 {Tablet} Refills: 0 Ordered:07-Feb-2018 DOGurdeepa AFrosmery DO, Audrey A Start : 07-Feb-2018 Active Lipitor 10 MG Oral Tablet 1 (one) Tablet qd for 90 days Quantity: 90 {Tablet} Refills: 3 Ordered:07-Feb-2018 DO, Audrey AFrosmery DO, Audrey A Start : 07-Feb-2018 Active MAGNESIUM, 500MG (Oral Tablet) 1 tab daily (500 MG) Active METHENAMINE MANDELATE, 0.5GM (Oral Tablet) 1 tab q hs (0.5 GM) Active Omeprazole 40 MG Oral Capsule Delayed Release 1 (one) Capsule DR daily for 90 days Quantity: 90 {Capsule} Refills: 3 Ordered:23-Jun-2018 Naomie Dalton Start : 23-Jun-2018 Active PredniSONE 10 MG Oral Tablet 3 (three) Tablet x3days, 2 paziz5xyak, 1 vqsn9wtkp for 0 days Quantity: 18 {Tablet} Refills: 0 Ordered:06-Jun-2018 Thanh DO, Audrey AFast DO, Audrey A Start : 06-Jun-2018 Active Comments:take with food Symbicort 160-4.5 MCG/ACT Inhalation Aerosol 2 (two) Puff puffs bid for 0 days Quantity: 3 {Inhalation} Refills: 0 Ordered:18-Jun-2018 Fast DO, Audrey AFast DO, Audrey A Start : 18-Jun-2018 Active Symbicort 160-4.5 MCG/ACT Inhalation Aerosol 2 (two) Puff puffs bid for 90 days Quantity: 3 {QS} Refills: 3 Ordered:18-Jun-2018 DO, Audrey AFast DO, Audrey A Start : 18-Jun-2018 Active TOPROL XL, 50MG (Oral Tablet Extended Release 24 Hour) 1 Tablet ER 24HR QD for 0 days Quantity: 90 {Tablet_ER_24HR} Refills: 3 Ordered:24-Jan-2015 Fast DO, Audrey AFast DO, Audrey A [...] Start : 22-Jun-2011 End : 29-Jun-2011 Inactive Augmentin 875-125 MG Oral Tablet 1 (one) Tablet bid for 14 days Quantity: 28 {Tablet} Refills: 0 Ordered:06-Jun-2018 Audrey Law DO, DO, Debra A Start : 06-Jun-2018 End : 20-Jun-2018 Inactive BD SYRINGE/NEEDLE, 25G X 5/81 ML (Miscellaneous) 1 Misc uad for B12 injections for 0 days Quantity: 1 {box(s)} Refills: 3 Ordered:29-Jul-2014 CATHY Sagastume Start : 20-Nov-2012 End : 29-Jul-2014 Inactive BIAXIN XL PAC, 500MG (Oral Tablet Extended Release 24 Hour) 2 (two) Tablet ER 24HR daily for 14 days Quantity: 28 {Tablet_ER_24HR} Refills: 0 Ordered:27-Jul-2008 Ashley Gan CNP Start : 27-Jul-2008 End : 07-Sep-2008 Inactive CEFDINIR, 300MG (Oral Capsule) 1 Capsule bid for 10 days Quantity: 20 {Capsule} Refills: 0 Ordered:01-Jan-2014 Audrey Law DO, DO, Audrey Rogers Start : 01-Jan-2014 End : 11-Jan-2014 Inactive [...] End : 29-Jul-2014 Inactive Comments:use sparingly ERGOCALCIFEROL, 47056OMZY (Oral Capsule) 1 (one) Capsule q week for 0 days Quantity: 12 {Capsule} Refills: 3 Ordered:11-May-2011 Virginie Abmriz LPN Start : 19-May-2009 End : 11-May-2011 [...] End : 16-Aug-2006 Inactive OSCAL 500/200 D-3, 976-669BU-TYNZ (Oral Tablet) 1 QD for 0 days Refills: 0 Ordered:27-Jul-2008 Luana Granado End : 16-Aug-2006 Inactive OKIXB-UI-CYMT MAXIMUM STRENGTH, 400-500MG (PO Tab) 1 QD [...] Quantity: 12 {Misc} Refills: 1 Ordered:20-Nov-2012 Long Marielos SHANE L Start : 17-May-2010 End : 20-Nov-2012 [...] : 21-Sep-2013 End : 15-Feb-2014 Discontinued CALCIUM, 407-855JH-KSPK (Oral Tablet) 1 Daily for 0 days Refills: 0 Ordered:15-Feb-2014 Juliana Shook End : 15-Feb-2014 Discontinued CALTRATE 600+D PLUS, 606-884XI-JVLI (Oral Tablet) 1 1/2 tab qd (600-400 [...] : 23-Nov-2014 End : 13-Dec-2014 Discontinued DRISDOL, 08510PZOM (Oral Capsule) 1 Capsule Weekly for 90 [...] Quantity: 30 {Tablet} Refills: 0 Ordered:27-May-2012 Audrey Audrey A Start : 27-May-2012 End : 27-May-2012 Discontinued NEURONTIN, 300MG (Oral Capsule) 1 Capsule tid for 0 days Quantity: 90 {Capsule} Refills: 0 Ordered:06-Mar-2013 Thanh CASTROAudrey ATULrosmery Gurdeepa A Start : 06-Mar-2013 End : 06-Mar-2013 Discontinued NEXIUM, 40MG (Oral Capsule Delayed Release) [address] qd for 30 days Quantity: 30 {Capsule_DR} Refills: 3 Ordered:12-Dec-2010 Thanh CASTROAudrey ATULrosmery Audrey Rogers Start : 12-Dec-2010 End : 12-Dec-2010 Discontinued [...] : 18-Apr-2010 Discontinued Comments:This order discontinued per [facility]. PredniSONE 10 MG Oral Tablet 3 [...] MG) End : 29-Dec-2013 Discontinued VITAMIN D, 21613VQAD (Oral Capsule) 1 (one) Capsule twice a week for 0 days Quantity: 24 {Capsule} Refills: 1 Ordered:18-Apr-2010 Mast Esther MONTANO Start : 07-Feb-2010 End : 18-Apr-2010 Discontinued Comments:This order discontinued per [facility]. 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 Past Medical History Name Dates Details [...] will refer Status: Resolved as of 04-Nov-2012 MDP WELLNESS EXAM Status: Inactive as of 28-Nov-2016 [...] 2 Views Result: Comments: See Note; NOTES: [facility] Imaging Services [address] [place] [address] Calcaneus min 2 Views MR#: [id number] Acct: [id number] Name: JS MEEKS Rep #: [id number] : 1945 F 72 From: Malachi Qureshi MD PCP: Audrey Law DO Status: REG CLI Study: Calcaneus min 2 Views Date of Exam: 04/29/18 Exam# [id number] Ordering Dr: Audrey Law DO STUDY: X-RAY [...] Service support , CC: Audrey Law DO Grinder Chipper: Signed 19-Nov-2017 Cardiology Visit Report Result: Comments: See Note; NOTES: [facility] [address] [place] [address]. 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 [place] [address] Fax REHABILITATION SERVICES DISCHAR GE SUMMARY MR#: [id number] Acct: [id number] Name: JS MEEKS Rep #: [id number] : 1945 72 From: Vesna Albert PT, Cert. MDT Referring Dr.: Quirino Bueno MD Status: REG [facility] Insurance: [facility] SELF PAY INSURANCE HP - PT D/C [...] by Vesna Albert PT, Cert. MDT> 11/18/17 0940 CC: Quirino Bueno MD; Audrey Law DO JAMAR Signed 22-Oct-2017 Inital Evaluation (1) - PT Result: Comments: See Note; NOTES: [facility] Physical Therapy [facility] [address] [place] [address]. [address] [place], [place] [address] Fax REHABILITATION SERVICES INITIAL EVALUATION MR#: [id number] Acct: [id number] Name: JS MEEKS Rep #: [id number] : 1945 72 From: Vesna Albert PT, Cert. MDT Referring DrYuni: Quirino Bueno MD Status: REG [facility] Insurance: [facility] SELF PAY INSURANCE Patient's Visit Information JS [...] ROM. 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 - Subjective Subjective: Work/Leisure: RETIRED. HAS [...] WALKING AND USING WEIGHT MACHINES AT [facility] LAST MAY AND THE ONLY THING [...] normal. RECENT X-RAY OF LEFT SHOULDER AT [facility] - PATIENT UNSURE OF RESULTS. NO MRI [...] LUE SLOW AND CAREFULLY. 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 RIGHT UE STRENGTH WFL. [...] to be FAXED BACK to us at [phone] for Medicare purposes. Please let me know [...] Limited Unilateral Result: Comments: See Note; NOTES: [facility] Imaging Services [address] [place] [address] Breast Limited Unilateral MR#: [id number] Acct: [id number] Name: JS MEEKS Rep #: [id number] : 1945 F 71 From: Corey Saldaña MD PCP: Audrey Law DO Status: REG CLI Study: Breast Limited Unilateral Date of Exam: 10/10/17 Exam# [id number] Ordering Dr: Audrey Law DO STUDY: UL [...] Corey Saldaña MD at 13:47 EST Tel [phone], Service support , CC: uAdrey Law DO Grinder Chipper: Signed 10-Oct-2017 Breast Limited Unilateral Result: Comments: See Note; NOTES: [facility] Imaging Services [address] [place] [address] Breast Limited Unilateral MR#: [id number] Acct: [id number] Name: JS MEEKS Rep #: [id number] : 1945 F 71 From: Corey Saldaña MD PCP: Audrey Law DO Status: REG CLI Study: Breast Limited Unilateral Date of Exam: 10/10/17 Exam# [id number] Ordering Dr: Audrey Law DO STUDY: UL [...] Corey Saldaña MD at 13:47 EST Tel [phone], Service support , CC: Audrey Law DO Grinder Chipper: Signed 07-Oct-2017 SCREENING MAMM (CAD), BILAT Result: Comments: See Note; NOTES: [facility] Imaging Services [address] [place] [address] SCREENING MAMM (CAD), BILAT MR#: [id number] Acct: [id number] Name: JS MEEKS Rep #: [id number] : 1945 F 71 From: Corey Saldaña MD PCP: Audrey Law DO Status: REG CLI Study: SCREENING MAMM (CAD), BILAT Date of Exam: 10/07/17 Exam# [id number] Ordering Dr: Audrey Law DO MAMMO GRAPHY [...] delay biopsy of a clinically suspicious abnormality. [id number] Electronically Signed: Corey Saldaña MD at 10:32 EST Tel [phone], Service support , CC: Audrey Law DO Grinder Chipper: Signed 07-Oct-2017 SCREENING MAMM (CAD), BILAT Result: Comments: See Note; NOTES: [facility] Imaging Services [address] [place] [address] SCREENING MAMM (CAD), BILAT MR#: [id number] Acct: [id number] Name: JS MEEKS Rep #: : 1945 F 71 From: Corey Saldaña MD PCP: Audrey Law DO Status: REG CLI Study: SCREENING MAMM (CAD), BILAT Date of Exam: 10/07/17 Exam# [id number] Ordering Dr: Audrey Law DO ADDEN DUM by Corey Saldaña MD on 10/09/17 at 0957 HPBI/SCREENING MAMM (CAD), BILAT 10/09/17 1004 Date cc: Audrey Fast DO * Signed ADDENDUM by Corey Saldaña MD on 10/09/17 at 0957 ADDENDUM This is an addendum report for BIRADS category. BIRADS Category 0: Addit ional imaging required. Electronically Signed: Corey Saldaña MD at 9:57 EST Tel [phone], Service support , 10/09/17 0957 Date cc: [...] delay biopsy of a clinically suspicious abnormality. [id number] Electronically Signed: Corey Saldaña MD at 10:32 EST Tel [phone], Service support , CC: Audrey Law DO Grinder Chipper: Signed 23-Sep-2017 TXT - Blood Flow Screening Result: Comments: See Note; NOTES: [facility] Cardiovascular Services [address] [place] [address] 09/23/17 0822 MR#: [id number] Acct: [id number] Name: JS MEEKS Rep #: [id number] : 1945 71 From: Jeet Grijalva MD Attending Dr: Audrey Law DO Status: REG REF Ordering Dr: Date: 09/23/17 Location: [facility] Sex: F C Admitted: Reason For [...] DO Date Dictated: 09/23/17821 Date Transcribed: 09/23/172213 Grinder Chipper: Signed 16-Sep-2017 Brain W/WO Contrast Result: Comments: See Note; NOTES: [facility] Imaging Services [address] [place] [address] Brain W/WO Contrast MR#: [id number] Acct: [id number] Name: JS MEEKS Rep #: [id number] : 1945 F 71 From: Gabriela Rhodes PCP: Audrey Law DO Status: REG CLI Study: Brain W/WO Contrast Date of Exam: 09/16/17 Exam# [id number] Ordering Dr: Audrey Law DO STUDY: MRI [...] Service support , CC: Audrey Law DO Grinder Chipper: Signed 07-Aug-2016 Bilat Scrn Digital AND CAD Result: Comments: See Note; NOTES: [facility] Imaging Services [address] [place] [address] Verdana 4d Bilat Scrn Digital AND CAD MR#: [id number] Acct: [id number] Name: JS MEEKS Rep #: [id number] : 1945 F 70 From: Corey Saldaña MD PCP: Audrey Law DO Status: REG CLI Study: Bilat Scrn Digital AND CAD Date of Exam: 08/07/16 Exam# [id number] Ordering Dr: Audrey Law MAMMOGRAPHY - BILATERAL [...] significant change since the prior study . BI/Bilat Scrn Digital AND CAD IMPRESSION: Stable bilateral screening mammogram. Yearly follow-up mammogram recommended. (A) ASSESSMENT CATEGORY: BIRADS Category 2: Benign. A letter regarding these results will be sent to the patient by the facility within 30 days. Approximately 10% of breast cancers are not detected by mammography. A normal mammogram should not delay biopsy of a clinically suspicious abnormality. [id number] Electronically Signed: Corey Saldaña MD at 12:30 EST , Service support [phone], CC: Audrey Law DO Grinder Chipper: Signed 07-Aug-2016 Chest PA and Lateral Result: Comments: See Note; NOTES: [facility] Imaging Services [address] [place] [address] Verdana 4d Chest PA and Lateral MR#: [id number] Acct: [id number] Name: JS MEEKS Rep # : [id number] : 1945 From: Corey Saldaña MD PCP: Audrey Law DO Status: REG CLI Study: Chest PA and Lateral Date of Exam: 08/07/16 Exam# [id number] Ordering Dr: Audrey Law DO STUDY: X [...] Corey Saldaña MD at 10:53 EST Tel [phone], Service support , CC: Audrey Law DO Grinder Chipper: Signed 07-Aug-2016 DXA BONE DENS W/VERT FX ASMT Result: Comments: See Note; NOTES: [facility] Imaging Services [address] [place] [address] Verdana 4d DXA BONE DENS W/VERT FX ASMT MR#: [id number] Acct: [id number] Name: JS MEEKS Rep #: [id number] : 1945 F 70 From: Corey Saldaña MD PCP: Audrey Law DO Status: REG CLI Study: DXA BONE DENS W/VERT FX ASMT Date of Exam: 08/07/16 Exam# [id number] Ordering Dr: Jayna Law ra, DO STUDY: [...] Corey Saldaña MD at 13:51 EST Tel [phone], Service support [phone], CC: Audrey Law DO; GEE BELCHER Grinder Chipper: Signed 13-Jul-2016 Stress Test Echo w/o Contrast Result: Comments: See Note; NOTES: [facility] Cardiovascular Services [address] [place] [address] Verda 4d Stress Test Echo w/o Contrast MR#: [id number] Acct: [id number] Name: JS ETIENNE Rep #: [id number] : 1945 70 From: Mark Leger MD [...] Date Dictated: 6 36 Date Transcribed: 07/13/161434 Grinder Chipper: Signed 02-May-2016 Pulmonary Function Report Comp Result: Comments: See Note; NOTES: [facility] Pulmonary Services/Neurology [address] [place] [address] Pulmonary Function Test (Comp) MR#: [id number] Acct: [id number] Name: RENITA MEEKS Rep #: [id number] : 1945 70 From: Markus Fuentes MD Referring Dr: Audrey Law DO Status: REG CLI Ordering Dr: Audrey Law DO Date: 05/01/16 Location: [facility] Sex: F C DATE OF SERVICE: 016 [...] C: Audrey Law DO T: NTS JOB: [id number] 05/02/16 0622 <Electronically signed by Markus Fuentes MD> Date Markus Fuentes MD CC: Markus Fuentes MD; Audrey Law DO Date Dictated: 05/01/1656 Date Transcribed: 05/01/16955 Grinder Chipper: Signed 04-Nov-2015 Brain W/WO Contrast Result: Comments: See Note; NOTES: [facility] Imaging Services [address] [place] [address] Nhungdana 4d Brain W/WO Contrast MR#: [id number] Acct: [id number] Name: ARIEL MEEKS Rep #: [id number] : 1945 F 70 From: Niki Cantu MD PCP: Audrey Law DO Status: REG CLI Study: Brain W/WO Contrast Date of Exam: 11/04/15 Exam# [id number] Ordering Dr: Audrey Law DO STUDY: MRI [...] MD at 12:52 EDT , Service support [phone] , CC: Audrey Law DO Grinder Chipper: Signed 05-Oct-2015 Spirometry (17338) Comments: good effort curve small- Result: 05-Oct-2015 ELECTROCARDIOGRAM, COMPLETE (ECG) (12063) Result: [MEASUREMENTS ANALYSIS] Date of Test: 10/05/2015 09:16:25; Heart Rate: 67; [place] Interval: 184; QRS: 92; QT Interval: 388; Corrected QT Interval (QTc): 400; P Wave Vernon: 44; QRS Wave Vernon: 15; T Wave Vernon: 48; Blood Pressure: 122/74 [ECG DIAGNOSTIC STATEMENTS] Date of Test: 10/05/2015 09:16:25; Summary: Sinus Rhythm WITHIN NORMAL LIMITS 18-Aug-2015 Chest PA and Lateral Result: Comments: See Note; NOTES: [facility] Imaging Services [address] [place] [address] Verdana 4d Chest PA and Lateral MR#: [id number] Acct: [id number] Name: Fiona MEEKS Rep #: [id number] : 1945 F 69 From: Willie Andersen PCP: Audrey Law DO Status: REG CLI Study: Chest PA and Lateral Date of Exam: 08/18/15 Exam# [id number] Ordering Dr: Rey Tyson MD STUDY: X-RAY [...] at 6:26 EST , Service sup port [phone], RAD/Chest PA and Lateral IMPRESSION: There is NO acute cardiopulmonary abnormality. Electronically Signed: Willie Andersen MD at 6:26 EST , Service support [phone], CC: Michelle Tyson MD; Audrey Law DO Grinder Chipper: Signed 02-Dec-2014 Spirometry (52287) Comments: obstruction present Result: 27-Oct-2014 Bilat Scrn Digital AND CAD Result: Comments: See Note; NOTES: [facility] Imaging Services [address] [place] [address] Breast Imaging Report MR#: [id number] Acct: [id number] Name: JS MEEKS Rep #: [id number] : 1945 F 69 From: Sonu Olmstead MD PCP: Audrey Law DO Status: REG CLI Study: Bilat Scrn Digital AND CAD Date of Exam: 10/27/14 Exam# [id number] Ordering Dr: Audrey Law DO MAMMOGR APHY [...] at 11:33 EDT Tel , Service support [phone], CC: Audrey Law DO Grinder Chipper: Signed 27-Oct-2014 Bilat Scrn Digital AND CAD Result: Comments: See Note; NOTES: [facility] Imaging Services [address] [place] [address] Breast Imaging Report MR#: [id number] Acct: [id number] Name: JS MEEKS Rep #: [id number] : 1945 F 69 From: Sonu Olmstead MD PCP: Audrey Law DO Status: REG CLI Study: Bilat Scrn Digital AND CAD Date of Exam: 10/27/14 Exam# [id number] Ordering Dr: Audrey Law by Corey Saldaña MD on 11/01/14 at 1353 ADDENDUM This is an addendum report. Prior out side examination was made available for review. Comparison is made with prior examination dated November 06, 2013. There is essentially no change since prior study. Electronically Signed: Corey akbar MD at 13:53 EDT Tel [phone], Service support [phone], 11/01/14 1353 Date cc: Audrey Fast DO [...] at 11:33 EDT Tel , Service support [phone], CC: Audrey Law DO Grinder Chipper: Signed 03-Aug-2014 Vert Fx Asess/Lat Bone Den(H) Result: Comments: See Note; NOTES: [facility] Imaging Services [address] [place] [address] Bone Density Report MR#: [id number] Acct: [id number] Name: JS MEEKS Rep #: [id number] : 1945 F 68 From: Corey Saldaña MD PCP: Audrey Law DO Status: REG CLI Study: Vert Fx Asess/Lat Bone Den(H) Date of Exam: 08/03/14 Exam# [id number] Ordering Dr: Audrey Law DO STUDY: DUAL [...] Corey Saldaña MD at 13:11 EST Tel [phone], Service support [phone], CC: Audrey Law DO Grinder Chipper: Signed 03-Aug-2014 Dexa Bone Density Study (HP) Result: Comments: See Note; NOTES: [facility] Imaging Services [address] [place] [address] Bone Density Report MR#: [id number] Acct: [id number] Name: JS MEESK Rep #: [id number] : 1945 F 68 From: Corey Saldaña MD PCP: Audrey Law DO Status: REG CLI Study: Dexa Bone Density Study (HP) Date of Exam: 08/03/14 Exam# [id number] Ordering Dr: Audrey Law DO STUDY: DUAL [...] Tio Saldaña MD at 14:42 EST Tel [phone], Service support [phone], CC: Audrey Law DO Grinder Chipper: Signed 29-Jul-2014 Chest PA and Lateral Result: Comments: See Note; NOTES: [facility] Imaging Services [address] [place] [address] Radiology Report MR#: [id number] Acct: [id number] Name: JS MEEKS Rep #: [id number] : 1945 F 68 From: Brad Lea MD PCP: Audrey Law DO Status: REG CLI Study: Chest PA and Lateral Date of Exam: 07/29/14 Exam# [id number] Ordering Dr: Michelle Tyson MD STUDY: X-RA [...] left rib fractures. There is no demonstra anmu abnormality of the visualized soft tissue structures of the upper abdomen. IMPRESSION: Fibrosis or atelectasis left lung base. No evidence for acute cardiop ulmonary pathology. Electronically Signed: Brad Lea MD at 7:26 EST , Service support [phone], CC: Michelle Tyson MD; Audrey Law DO Grinder Chipper: Signed 29-Jul-2014 Spirometry (13711) Comments: see scanned document of test done to see results reviewed today with patient Result: 26-Mar-2014 Brain W/WO Contrast Result: Comments: See Note; NOTES: [facility] Imaging Services [address] [place] [address] MRI Report MR#: [id number] Acct: [id number] Name: JS MEEKS Rep #: [id number] DO B: 1945 F 68 From: Joshua Salcido MD PCP: Audrey Law DO Status: REG CLI Study: Brain W/WO Contrast Date of Exam: 03/26/14 Exam# [id number] Ordering Dr: Audrey Law DO STUDY: MRI [...] MD at 15:20 EDT , Service support [phone], CC: Audrey Law DO Grinder Chipper: Signed 19-Jan-2014 Chest WITH Contrast Result: Comments: See Note; NOTES: [facility] Imaging Services [address] [place] [address] CAT Scan Report MR#: [id number] Acct: [id number] Name: JS MEEKS Rep #: [id number] : 1945 F 68 From: Corey Saldaña MD PCP: Audrey Law DO Status: REG CLI Study: Chest WITH Contrast Date of Exam: 01/19/14 Exam# [id number] Ordering Dr: Audrey Law DO STUDY: CT [...] Corey Saldaña MD at 10:20 EDT Tel [phone], Service support [phone], CC: Audrey Law DO Grinder Chipper: Signed 29-Dec-2013 Cerv Spine 4 or 5 Views Result: Comments: See Note; NOTES: [facility] Imaging Services [address] [place] [address] Radiology Report MR#: [id number] Acct: [id number] Name: JS MEEKS Rep #: [id number] : 1945 F 68 From: Cristino Salas MD PCP: Audrey Law DO Status: REG CLI Study: Cerv Spine 4 or 5 Views Date of Exam: 12/29/13 Exam# [id number] Ordering Dr: Audrey Law DO STUDY: X-RA [...] at 3:02 EDT Tel , Service support [phone], CC: Audrey Law DO Grinder Chipper: Signed 22-Dec-2013 Abdomen Single View Result: Comments: See Note; NOTES: [facility] Imaging Services [facility] [place] [address] Radiology Report MR#: [id number] Acct: [id number] Name: JS MEEKS Rep #: [id number] : 1945 F 68 From: Willie Andersen PCP: Audrey Law DO Status: REG CLI Study: Abdomen Single View Date of Exam: 12/22/13 Exam# [id number] Ordering Dr: Justo Bowles MD STUDY: X-RAY [...] at 2:50 EDT Tel , Service support [phone], CC: Audrey Law DO; Justo Bowles MD Grinder Chipper: Signed 19-Dec-2013 Operative Report Result: Comments: See Note; NOTES: [facility] Medical Records Department [address] [place] [address] Operative Report MR#: [id number] Acct: [id number] Name: JS MEEKS Rep #: [id number] : 1945 68 From: Justo Bowles MD PCP: Audrey Law DO Status: [facility] DATE OF SERVICE: 12/18/2013 DATE OF SERVICE: December 18, 2013. PREOPERATIVE DIAGNOSIS: Left ureteral ca lculi, status post stent placement. POSTOPERATIVE DIAGNOSIS: Left ureteral calculi, status post stent placement. PROCEDURES PERFORMED: Left ureteroscopy, laser lithotripsy of stone and left stent placement. ANESTHESIOLOGIST: Dr. Leiva. SURGEON: Justo Bowles M.D. SPECIMEN REMOVED: None. DRAINS: A 6-Welsh x 24 cm stent on the left [...] we nt into the bladder with a 21-Welsh rigid cystourethroscope, grabbed the existing stent from [...] for easy extraction. Justo Bowles MD T: [facility] JOB: [id number] 12/19/13 0743 <Electronically signed by Justo Bowles MD> Date Justo Bowles MD CC: Audrey Law DO; Justo Bowles MD Date Dictated: 12/18/13 1430 Date Transcribed: 12/18/13 143 Grinder Chipper: Signed 18-Dec-2013 Operative Report Result: Comments: See Note; NOTES: [facility] Medical Records Department [address] [place] [address] Operative Report 12/18/13 1428 MR#: [id number] Acct: [id number] Name: JS MEEKS Rep #: [id number] : 1945 68 From: Justo Bowles MD PCP: Audrey Law DO Status: REG SDC Y Location: [place] [address] Report of Operation Date of Procedure: 12/18/13 [...] Discharge Instruction Result: Comments: See Note; NOTES: [facility] Medical Records Department [address] [place] [address] Discharge Instruction 12/18/13 1343 MR#: [id number] Acct: [id number] Name: JS MEEKS Rep #: [id number] : 1945 68 From: Justo Bowles MD PCP: Audrey Law DO [place] [facility] [place] Diet: No Restrictions Discharge Activity: [...] without Cont Result: Comments: See Note; NOTES: [facility] Imaging Services [address] [place] [address] CAT Scan Report MR#: [id number] Acct: [id number] Name: JS MEEKS Rep #: [id number] : 1945 F 68 From: Corey Saldaña MD PCP: Audrey Law DO Status: REG CLI Study: Abdomen/Pelvis without Cont Date of Exam: 12/04/13 Exam# [id number] Ordering Dr: Brett Mata MD: CT ABDOMEN [...] Corey Saldaña MD at 11:50 EDT Tel [phone], Service support [phone], CC: Audrey Law DO; Brett Mata MD Grinder Chipper: Signed Family History Unknown Family Member Name [...] kg/m2 Body Surface Area Calculated 1.61 m2 27-Kyb-365842:44 Temperature 98.3 f Pulse 66 /min Comments: [...] Height 0 in Head Circumference 0.00 cm 70-Krp-983363:50 Temperature 97.8 f Comments: Method: Oral Pulse [...] Comprehensive Metabolic Profil Comments: DR LAW ORDERED PTHIN/CADR BRANDY ORDERED CMP/PTHIN/VITDWOhio[facility] [address] [place], [place], [address] GAP 7 (Normal) Range: 5-15 CO2 31.0 [...] Comments: Please note revised GLUCOSE reference range opttfqtph61/02/2018. 06-Kmp-67142:07 PTHIN 78.1 pg/mL (Normal) Comments: DR LAW ORDERED PTHIN/CADR BRANDY ORDERED CMP/PTHIN/[facility] [address] [place], [address] Range: 18.4-80.1 :07 Vitamin D,25 Hydroxy Comments: DR LAW ORDERED PTHIN/NIYAR BRANDY ORDERED CMP/PTHIN/[facility] [address] [place], [id number] Vitamin D 25-OH 68.3 ng/mL (Normal) Range: 29.95-100.01 Comments: Vitamin D 25(OH) Status Range Deficiency <20 ng/mL (50nmol/L) Insuffciency 20 - 30 ng/mL (50 - 75 nmol/L) Sufficiency 30 - 100 ng/mL (75 - 250 nmol/L) Toxicity >100 ng/mL (>250 nmol/L) 76-Uxy-00415:30 Culture, Urine Comments: [facility] [address] [place], [address] CUUR See Note (Normal) Comments: Urine CultureORGANISM 1: Mixed Gram Positive OrganismsColony Count 1000-10,000MIX CULTURE Mixed contaminants. Submit a new specimen if indicated. 2-Hga-477900:50 HGB A1C (48325) Comments: PATIENT WAS FASTINGPERFORMED BY: [facility] Kohuit5348 [facility] [id number] Hemoglobin A1c 5.6 % (Normal) Range: 4.8-5.6 Comments: . Prediabetes: 5.7 - 6.4 Diabetes: >6.4 Glycemic control for adults with diabetes: <7.0 2-Qvc-470511:50 VITAMIN B-12 (CYANOCOBALAMIN) Comments: PATIENT WAS FASTINGPERFORMED BY: [employer] [facility] [id number] (78663) Vitamin B12 626 pg/mL (Normal) Range: 232-1245 4-Pdw-174789:50 METABOLIC PANEL, COMPREHENSIVE Comments: PATIENT WAS FASTINGPERFORMED BY: [employer]70 [facility] [id number] (15689) ALT (SGPT) 22 [iU]/L (Normal) Range: 0-32 [...] 8-27 Glucose 96 mg/dL (Normal) Range: 65-99 1-Gdp-094926:50 Vitamin D Hydroxy (87608) Comments: PATIENT WAS FASTINGPERFORMED BY: [employer] [facility] [id number] Vitamin D, 25-Hydroxy 51.3 ng/mL (Normal) Range: 30.0-100.0 Comments: Vitamin D deficiency has been defined by the [place] of[place]icine and an Endocrine Society practice guideline as alevel of serum 25-OH vitamin D less than 20 ng/mL (1,2).The Endocrine Society went on to further define vitamin Dinsufficiency as a level between 21 and 29 ng/mL (2).1. IOM ([place] of Medicine). 2010. Dietary reference intakes for calcium and D. [place]: The National AcademChatterPlug Press.2. Robinson MF, Keila AGUERO, Bruce ROBLES, et al. Evaluation, treatment, and prevention of vitamin D deficiency: an Endocrine Society clinical practice guideline. JCEM. 2010; 96(7):1911-30. 4-Gul-931561:50 LIPID PANEL (30732) Comments: PATIENT WAS FASTINGPERFORMED BY: [facility] Sznpjs3862 [facility] [id number]; review on 04/29 LDL/HDL Ratio 2.6 {ratio} [...] Range: 100-199 18-Nov-20179:16 Comprehensive Metabolic Profil Comments: [facility] [address] [place], [place], [address] GAP 6 (Normal) Range: 5-15 CO2 31.0 mmol/L (Normal) Range: 21.0-32.0 CL 104 mmol/L (Normal) Range: 98-107 K 3.7 mmol/L (Normal) Range: 3.5-5.1 NA 141 mmol/L (Normal) Range: 136-145 T BILI 0.60 mg/dL (Normal) Range: 0.20-1.00 ALT 29 U/L (Normal) Range: 13-56 Comments: Please note revised ALT reference range bewysayaa30/28/2018. ALK P 59 U/L (Normal) Range: 45-117 [...] Comments: Please note revised GLUCOSE reference range cjbyoyxlw73/02/2018. :16 PTHIN 75.3 pg/mL (Normal) Comments: [facility] [address] [place], [address] Range: 18.4-80.1 Comments: Please Note: PTH INTACT METHOD AND REFERENCE RANGE CHANGEEffective 07/31/2017. :16 Vitamin D,25 Hydroxy Comments: [facility] [address] [place], [place], [address] Vitamin D 25-OH 71.7 ng/mL (Normal) Range: 29.95-100.01 Comments: Vitamin D 25(OH) Status Range Deficiency <20 ng/mL (50nmol/L) Insuffciency 20 - 30 ng/mL (50 - 75 nmol/L) Sufficiency 30 - 100 ng/mL (75 - 250 nmol/L) Toxicity >100 ng/mL (>250 nmol/L) :52 HGB A1C (99783) Comments: PATIENT WAS FASTINGPERFORMED BY: [facility]6370 [facility] [id number] Hemoglobin A1c 5.5 % (Normal) Range: 4.8-5.6 Comments: . Pre-diabetes: 5.7 - 6.4 Diabetes: >6.4 Glycemic control for adults with diabetes: <7.0 :52 CBC W/AUTO DIFF WBC (09495) Comments: PATIENT WAS FASTINGPERFORMED BY: [facility]6370 [facility] [id number] Immature Grans (Abs) 0.0 {x10E3/uL} (Normal) Range: [...] PANEL, COMPREHENSIVE Comments: PATIENT WAS FASTINGPERFORMED BY: Nasty GalPSE&G Children's Specialized HospitalMrcsoh6766 [facility] [id number] (85157) ALT (SGPT) 20 [iU]/L (Normal) Range: 0-32 [...] mg/dL (Abnormal) Range: 65-99 :52 LIPID PANEL (87464) Comments: PATIENT WAS FASTINGPERFORMED BY: LabCoPSE&G Children's Specialized HospitalMuyyey8854 [facility] [id number]; review at upcoming appt LDL/HDL Ratio 2.3 [...] Cholesterol, Total 177 mg/dL (Normal) Range: 100-199 03-Spc-37867:00 24 HR Urine Creatinine Comments: [facility] [address] [place], [place], [address] UR.CREAT/24hr 0.98 {g/24_HR} (Normal) Range: 0.70-1.90 URINE CREAT 67.40 mg/dL (Normal) UR TOTAL VOLUME 1.40 L (Normal) UR COLLECT TIME 24.0 {HOURS} (Normal) 33-Ntr-54784:00 Miscellaneous Lab Procedure Comments: Test(s) Ordered: STONE RISK [id number] 24HR URINEWOhioHealth [facility] [address] [place], [place], [address] [facility] [place] Comments: TEST RESULT FLAG UNITS REF INTERVALKidney [...] pH, 24 Hr Urine 6.3 Ammonia, Urine 75043 ug/dL Not Estab. Ammonia, Urine 22 No t Estab. Saturation Ratios Calcium Oxalate 5.13 ratio 0.00 - 6.00 Brushite 1.95 ratio 0.00 - 3.00 Monosodium Urate 1.29 ratio 0.00 - 4.00 U calixto Acid 0.49 ratio 0.00 - 1.20 Struvite 0.04 ratio 0.00 - 1.00 Please note: Graphic analysis of results will follow via computer, mail, or desulfurizer hand del hayes. TESTING PERFORMED AT [facility]. ORIGINAL REPORT ON FILE IN LAB CONTAINS ADDITIONAL TEST SITE INFORMATION. AMENDED REPORT 10/04/17 0802 [facility] [place] LAB TEST previously reported as: TEST RESULT [...] 24 Hr Urine 6.3 Ammo layton, Urine 33752 ug/dL Not Estab. TESTING PERFORMED AT [facility]. ORIGINAL REPORT ON FILE IN LAB CONTAINS ADDITIONAL TEST SITE INFORMATION. 74-Kjj-81776:45 Comprehensive Metabolic Profil Comments: [facility] [address] [place], [address] GAP 6 (Normal) Range: 5-15 CO2 32.0 mmol/L (Normal) Range: 21.0-32.0 CL 101 mmol/L (Normal) Range: 98-107 K 3.8 mmol/L (Normal) Range: 3.5-5.1 NA 139 mmol/L (Normal) Range: 136-145 T BILI 0.60 mg/dL (Normal) Range: 0.20-1.00 ALT 26 U/L (Normal) Range: 13-56 Comments: Please note revised ALT reference range xqjvsqeum62/28/2018. ALK P 55 U/L (Normal) Range: 45-117 [...] Comments: Please note revised GLUCOSE reference range sqwqeoyhl13/02/2018. :45 Magnesium Comments: [facility] [address] [place], [address](575) MG 2.4 mg/dL (Normal) Range: 1.6-2.6 Comments: Please note revised Magnesium reference range zzkemtsbb20/15/2018. :45 Vitamin D,25 Hydroxy Comments: [facility] [address] [place], [address] Vitamin D 25-OH 46.2 ng/mL (Normal) Range: 19.95-100.01 Comments: Vitamin D 25(OH) Status Range Deficiency <20 ng/mL (50nmol/L) Insuffciency 20 - 30 ng/mL (50 - 75 nmol/L) Sufficiency 30 - 100 ng/mL (75 - 250 nmol/L) Toxicity >100 ng/mL (>250 nmol/L) 8-Xrx-761979:36 VITAMIN B-12 (CYANOCOBALAMIN) Comments: PATIENT NOT FASTINGPERFORMED BY: [facility]6370 [facility] [id number] (52441) Vitamin B12 626 pg/mL (Normal) Range: 232-1245 51-Szb-200637:14 CBC W/AUTO DIFF WBC (81709) Comments: PATIENT NOT FASTINGPERFORMED BY: [facility]6370 [facility] [id number] Immature Grans (Abs) 0.0 {x10E3/uL} (Normal) Range: [...] 3.77-5.28 WBC 5.2 {x10E3/uL} (Normal) Range: 3.4-10.8 82-Xes-912171:14 METABOLIC PANEL, COMPREHENSIVE Comments: PATIENT NOT FASTINGPERFORMED BY: [facility] [address]ifzi[address] [place] [id number]; review 09/10 (74971) ALT (SGPT) 19 [iU]/L (Normal) Range: 0-32 [...] Glucose, Serum 107 mg/dL (Abnormal) Range: 65-99 0-Hvr-102221:04 Comprehensive Metabolic Profil Comments: [facility] [address] [place], [place], [phone] GAP 5 (Normal) Range: 5-15 CO2 28.0 [...] 7-18 GLU 85 mg/dL (Normal) Range: 70-110 4-Mot-528140:04 Magnesium Comments: [facility] [address] [place], [address](111) MG 2.4 mg/dL (Normal) Range: 1.8-2.4 2-Cbo-590072:04 PTH,INTACT Comments: [facility] [address] [place], [address] PTH,Intact 57 pg/mL (Normal) Range: 14-72 3-Kvn-445381:04 Vitamin D,25 Hydroxy Comments: [facility] [address]qmv[address] [place], [place], [address] Vitamin D 25-OH 62.0 ng/mL (Normal) Comments: Vitamin D 25(OH) Status Range Deficiency <20 ng/mL (50nmol/L) Insuffciency 20 - 30 ng/mL (50 - 75 nmol/L) Sufficiency 30 - 100 ng/mL (75 - 250 nmol/L) Toxicity >100 ng/mL (>250 nmol/L) 72-Myf-923128:07 CBC W/AUTO DIFF WBC Comments: PATIENT WAS FASTINGPERFORMED BY: Nasty Gal[address] [id number] BY: [facility] Aocrmn7[address] [place] [id number] (74952) Immature Grans (Abs) 0.0 {x10E3/uL} (Normal) Range: [...] 3.77-5.28 WBC 5.2 {x10E3/uL} (Normal) Range: 3.4-10.8 58-Ybo-240819:07 METABOLIC PANEL, Comments: PATIENT WAS FASTINGPERFORMED BY: Nasty Gal[address] [id number] BY: Nasty GalPSE&G Children's Specialized HospitalUsfbdw1619 [facility] [id number] COMPREHENSIVE (70042) ALT (SGPT) 21 [iU]/L (Normal) Range: 0-32 [...] Glucose, Serum 94 mg/dL (Normal) Range: 65-99 19-Uef-765965:07 LIPOPROTEIN, BLD, BY NMR Comments: PATIENT WAS FASTINGPERFORMED BY: LabCo[address] [id number] BY: LabEngine EcologyPSE&G Children's Specialized HospitalTwzrvw4225 [facility] [id number] (47612) LP-IR Score 59 (Abnormal) Comments: INSULIN RESISTANCE MARKER <--Insulin Sensitive Insulin Resistant--> Percentile in Reference PopulationInsulin Resistance ScoreLP-IR Score Low 25th 50th 75th High <27 27 45 63 >63LP-IR Score is inaccurate if patient is non-fasting. .The LP-IR score is a laboratory developed i [facility] that has beenassociated with insulin resistance and [...] 1600 - 2000 Very High > 2000 01-Vtl-823334:07 Vitamin D Hydroxy Comments: PATIENT WAS FASTINGPERFORMED BY: [employer]apt[address] [id number] BY: Nasty Gal Ibijtl7132 [facility] [id number] (32121) Vitamin D, 25-Hydroxy 75.1 ng/mL (Normal) Range: 30.0-100.0 Comments: Vitamin D deficiency has been defined by the [place] ofMedicine and an Endocrine Society practice guideline as alevel of serum 25-OH vitamin D less than 20 ng/mL (1,2).The Endocrine Society went on to further define vitamin Dinsufficiency as a level between 21 and 29 ng/mL (2).1. IOM ([place] of Medicine). 2010. Dietary reference intakes for calcium and D. Díaz [place]: The National Academies Press.2. Robinson MF, Keila AGUERO, Bruce ROBLES, et al. Evaluation, treatment, and prevention of vitamin D deficiency: an Endocrine Society clinical practice guideline. JCEM. 2010; 96(7):1911-30. 80-Xct-617234:07 HGB A1C (37109) Comments: PATIENT WAS FASTINGPERFORMED BY: [employer]apt[address] [id number] BY: [employer]70 [facility] [id number] Hemoglobin A1c 5.6 % (Normal) Range: 4.8-5.6 Comments: . Pre-diabetes: 5.7 - 6.4 Diabetes: >6.4 Glycemic control for adults with diabetes: <7.0 7-Kiu-845747:30 Rapid Flu (56215 x 2) Influenza A Ag positive A (Normal) 27-Aqf-17508:49 MICROALBUMIN: CREATININE Comments: PATIENT WAS FASTINGPERFORMED BY: [employer] [address] [id number] BY: [employer] Wnipbd9226 [facility] [id number] RATIO (69040) AND (68672) Microalb/Creat Ratio 9.5 {mg/g_creat} (Normal) Range: 0.0-30.0 Microalbumin, Urine 18.9 ug/mL (Normal) Creatinine, Urine 200.0 mg/dL (Normal) :49 HGB A1C (76639) Comments: PATIENT WAS FASTINGPERFORMED BY: [employer] [id number] BY: LabMymich[facility]6370 [facility] [id number] Hemoglobin A1c 5.8 % (Abnormal) Range: 4.8-5.6 Comments: . Pre-diabetes: 5.7 - 6.4 Diabetes: >6.4 Glycemic control for adults with diabetes: <7.0 :49 METABOLIC PANEL, Comments: PATIENT WAS FASTINGPERFORMED BY: [employer] EcologyGregory V[place] [address] [facility] [id number] BY: LabMymichigan [facility] Center [facility]6370 [facility] [id number] COMPREHENSIVE (20776) ALT (SGPT) 13 [iU]/L (Normal) Range: 0-32 [...] Glucose, Serum 91 mg/dL (Normal) Range: 65-99 44-Tmc-44599:49 LIPOPROTEIN, BLD, BY NMR Comments: PATIENT WAS FASTINGPERFORMED BY: BN [facility] Ftajiuxxmi0848 [facility] [id number] BY: CB [facility] Pcugrf4546 [facility] [id number]; fu 11-28 Dr. Law (23750) LP-IR Score 36 (Normal) Comments: INSULIN RESISTANCE MARKER <--Insulin Sensitive Insulin Resistant--> Percentile in Reference PopulationInsulin Resistance ScoreLP-IR Score Low 25th 50th 75th High <27 27 45 63 >63LP-IR Score is inaccurate if patient is non-fasting. .The LP-IR score is a laboratory developed i [facility] that has beenassociated with insulin resistance and [...] were developed and their performance characteristicsdetermined by [employer]. These assays have not been cleared by [...] 1600 - 2000 Very High > 2000 60-Pji-382954:00 Comprehensive Metabolic Profil Comments: [facility] [address] [place], [address] GAP 4 (Abnormal) Range: 5-15 CO2 30.0 [...] 7-18 GLU 80 mg/dL (Normal) Range: 70-110 22-Qlw-512885:00 Magnesium Comments: [facility] [address] [place], [place], [address] MG 2.2 mg/dL (Normal) Range: 1.8-2.4 14-Abu-991458:00 PTH,INTACT Comments: [facility] [address] [place], [place], [address] PTH,Intact 39 pg/mL (Normal) Range: 14-72 20-Xtk-781420:00 Vitamin D,25 Hydroxy Comments: [facility] [address] [place], [place], [address] Vitamin D 25-OH 44.7 ng/mL (Normal) Comments: Vitamin D 25(OH) Status Range Deficiency <20 ng/mL (50nmol/L) Insuffciency 20 - 30 ng/mL (50 - 75 nmol/L) Sufficiency 30 - 100 ng/mL (75 - 250 nmol/L) Toxicity >100 ng/mL (>250 nmol/L) :23 HgA1C , Office (07488) HgA1C , Office 5.3 % (Normal) Range: 4.6 - 7.1 :42 CBC W/Diff, Automated Comments: [facility] [address] [place], [address] Absolute Lymph 1.85 {X10_3/ul} (Normal) Range: 0.83-4.51 [...] 4.2-5.4 WBC 5.2 K/mm3 (Normal) Range: 4.4-11.0 91-Goj-75742:42 Comprehensive Metabolic Profil Comments: [facility] [address] [place], [address] ; non-emergent till apt GAP [...] (Normal) Range: 70-110 :42 Lipid Profile Comments: [facility] [address] [place], [address] VLDL 30 mg/dL (Normal) Range: 5-40 LDL [...] High Risk :42 Microalb:Creat Ratio,Random UR Comments: [facility] [address] [place], [id number] MALB:CREAT 7.2 {mg/g_CRE} (Normal) MICROALBUMIN,UR 12.0 mg/L (Normal) UR CREAT 166.00 mg/dL (Normal) :42 Vitamin B12 726 pg/mL (Normal) Comments: [facility] [address] [place], [address] ; will review on 05/08 appt Range: 211-911 :42 Vitamin D,25 Hydroxy Comments: [facility] [address] [place], [address] Vitamin D 25-OH 56.6 ng/mL (Normal) Comments: Vitamin D 25(OH) Status Range Deficiency <20 ng/mL (50nmol/L) Insuffciency 20 - 30 ng/mL (50 - 75 nmol/L) Sufficiency 30 - 100 ng/mL (75 - 250 nmol/L) Toxicity >100 ng/mL (>250 nmol/L) :46 Culture, Urine Comments: [facility] [address] [place], [address] CUUR See Note (Normal) Comments: Urine CultureORGANISM [...] $ <=20 S(NF) indicates non-formulary drug at [facility]. Approval by Infectious Disease Specialist required before non-formulary drugs may be ordered and/or dispensed. :46 Urinalysis, Routine (Dipstick) Comments: How was Urine Obtained? CLEAN CATCHWOhioHealth [facility] [address]sm[address] [place], [place], [id number] LEUK ESTERASE 500 /ul (Abnormal) OCCULT BLOOD-UR 25 /ul (Abnormal) NITRITE UR Negative (Normal) UROBILI Normal mg/dL (Normal) PROT DIPSTX 30 mg/dL (Abnormal) pH UR 6.0 (Normal) Range: 5.0 - 8.0 SP.GR. DIPSTX 1.025 (Normal) Range: 1.002-1.030 KETONE UR Negative mg/dL (Normal) BILIRUBIN URINE Negative mg/dL (Normal) GLUCOSE, UR Normal mg/dL (Normal) CLARITY Sl. Cloudy (Normal) COLOR Yellow (Normal) 11-Uuz-099872:34 PTH,INTACT Comments: [facility] [address] [place], [place], [address] PTH,Intact 64 pg/mL (Normal) Range: 14-72 48-Waz-323484:09 CBC W/Diff, Automated Comments: [facility] [address] [place], [place], [address] Absolute Lymph 1.36 {X10_3/ul} (Normal) Range: 0.83-4.51 [...] 4.2-5.4 WBC 5.2 K/mm3 (Normal) Range: 4.4-11.0 58-Suv-591631:09 Comprehensive Metabolic Profil Comments: [facility] [address] [place], [place], [id number] GAP 2 (Abnormal) Range: 5-15 CO2 31.0 [...] 7-18 GLU 99 mg/dL (Normal) Range: 70-110 30-Raa-155999:09 Hemoglobin A1c Comments: [facility] [address], [id number] HGB A1C 5.4 % (Normal) Range: 4.2-6.3 73-Pdu-326188:09 Lipid Profile Comments: [facility] [address] [place], [address] VLDL 29 mg/dL (Normal) Range: 5-40 LDL [...] 200-240 mg/dL Borderline >240 mg/dL High Risk 37-Vdt-091782:09 Microalb:Creat Ratio,Random UR Comments: [facility] [address] [place], [id number] MALB:CREAT 13.7 {mg/g_CRE} (Normal) MICROALBUMIN,UR 19.5 mg/L (Normal) UR CREAT 142.00 mg/dL (Normal) 73-Jol-106313:09 Vitamin B12 543 pg/mL (Normal) Comments: [facility] [address] [place], [address] Range: 211-911 81-Eac-699953:09 Vitamin D,25 Hydroxy Comments: [facility] [address] [place], [address] Vitamin D 25-OH 58.6 ng/mL (Normal) Comments: Vitamin D 25(OH) Status Range Deficiency <20 ng/mL (50nmol/L) Insuffciency 20 - 30 ng/mL (50 - 75 nmol/L) Sufficiency 30 - 100 ng/mL (75 - 250 nmol/L) Toxicity >100 ng/mL (>250 nmol/L) 13-Cey-349993:30 Comprehensive Metabolic Profil Comments: [facility] [address] [place], [id number] ; Ordered by another doctor GAP 6 [...] 7-18 GLU 93 mg/dL (Normal) Range: 70-110 55-Orw-411982:30 PTH,INTACT Comments: [facility] [address] [place], [address] PTH,Intact 70 pg/mL (Normal) Range: 14-72 40-Xwp-342875:30 Vitamin D,25 Hydroxy Comments: [facility] [address] [place], [place], [address] Vitamin D 25-OH 52.0 ng/mL (Normal) Comments: Vitamin D 25(OH) Status Range Deficiency <20 ng/mL (50nmol/L) Insuffciency 20 - 30 ng/mL (50 - 75 nmol/L) Sufficiency 30 - 100 ng/mL (75 - 250 nmol/L) Toxicity >100 ng/mL (>250 nmol/L) 79-Hrr-166380:23 URINE LOW CULTURE-RUDDY COL Comments: PATIENT NOT FASTINGPERFORMED BY: [facility] Alinyu2570 [facility] [id number] Information: SRC:UR [id number] COUNT (98043) Result 1 NG36 (Normal) Comments: No growth in 36 - 48 hours. Urine Culture,Comprehensive Final report (Normal) 76-Cbs-66490:56 Urinalysis, Office (48409) UA - LEUKOCYTE ESTERASE Negative (Normal) UA - NITRITE Negative (Normal) URINE UROBILINGN RUDDY TIMED Normal mg/dL (Normal) UA - PROTEIN Negative mg/dL (Normal) UA - PH 7 (Normal) UA - BLOOD Negative (Normal) UA - SPECIFIC GRAVITY 1.030 (Abnormal) UA - KETONES Negative mg/dL (Normal) UA - BILIRUBIN Negative (Normal) UA - GLUCOSE Negative (Normal) 27-Ktj-79811:29 HgA1C , Office (75726) HgA1C , Office 5.7 % (Normal) Range: 4.6 - 7.1 1-Fnz-611328:11 Comprehensive Metabolic Profil Comments: [facility] [address] [place], [place], [address] ; apt. 10-16-15 GAP 5 (Normal) Range: [...] 7-18 GLU 80 mg/dL (Normal) Range: 70-110 3-Aak-070732:11 Culture, Urine Comments: [facility] [address] [facility] [address] [place], [place], [address] CUUR See Note (Normal) Comments: Urine CultureCulture exhibits no growth. 6-Gni-484282:11 Lipid Profile Comments: [facility] [address] [place], [place], [address] VLDL 27 mg/dL (Normal) Range: 5-40 LDL [...] 200-240 mg/dL Borderline >240 mg/dL High Risk :11 Vitamin B12 545 pg/mL (Normal) Comments: [facility] [address] [place], [address] Range: 211-911 Comments: ADDENDA: normal and has apt next week 31-Mlh-331852:00 Comprehensive Metabolic Profil Comments: Test performed at:[facility] [address] [place] [address] ; handled by weytesha GAP 3 (Abnormal) [...] 7-18 GLU 91 mg/dL (Normal) Range: 70-110 20-Iru-929285:00 PTH,INTACT Comments: Test performed at:[facility] [address] [place] [address] PTH,Intact 87 pg/mL (Abnormal) Range: 14-72 46-Jpz-938037:00 Thyroid Stim Hormone (TSH) Comments: Test performed at:[facility] [address] [place] [address] TSH 0.57 {uIU/mL} (Normal) Range: 0.358-3.74 30-Oqq-591467:00 Vitamin D,25 Hydroxy Comments: Test performed at:[facility] [address] [place] [address] Vitamin D 25-OH 38.5 ng/mL (Normal) Comments: Vitamin D 25(OH) Status Range Deficiency <20 ng/mL (50nmol/L) Insuffciency 20 - 30 ng/mL (50 - 75 nmol/L) Sufficiency 30 - 100 ng/mL (75 - 250 nmol/L) Toxicity >100 ng/mL (>250 nmol/L) 1-Zcu-221024:51 URINE LOW CULTURE-RUDDY COL Comments: PATIENT NOT FASTINGPERFORMED BY: [facility] Qzunol7580 [facility] [id number] Information: SRC:URC [id number]; susept. to cipro and was treated COUNT ([id number]) Antimicrobial MIHEAD (Normal) Comments: S = Susceptible; [...] mL (Abnormal) Urine Final report Culture,Comprehensive (Abnormal) 4-Gjx-515016:15 Urinalysis, Office (16996) UA - LEUKOCYTE ESTERASE Moderate (Normal) UA - NITRITE Negative (Normal) URINE UROBILINGN RUDDY TIMED Normal mg/dL (Normal) UA - PROTEIN 30 mg/dL (Normal) UA - PH 6.0 (Normal) Comments: 5.5 UA - BLOOD Non Hemolyzed Moderate (Normal) UA - SPECIFIC GRAVITY 1.020 (Normal) UA - KETONES 15 mg/dL (Abnormal) UA - BILIRUBIN Negative (Normal) UA - GLUCOSE Negative (Normal) 50-Zfc-38104:18 Immunofixation Urine Comments: Test performed at:[facility] [address] [place] [address] GEMMA Urine Comment (Normal) Comments: No monoclonality detected.Performed at: - [address] [id number] Director: Himanshu Leung PhD, Phone: [phone] 55-Gtq-23975:18 PTH,INTACT Comments: Test performed at:[facility] [address] [place] [address] PTH,Intact 65 pg/mL (Normal) Range: 14-72 :18 Vitamin D,25 Hydroxy Comments: Test performed at:[facility] [address] [place] [address] Vitamin D 25-OH 45.2 ng/mL (Normal) Comments: Vitamin D 25(OH) Status Range Deficiency <20 ng/mL (50nmol/L) Insuffciency 20 - 30 ng/mL (50 - 75 nmol/L) Sufficiency 30 - 100 ng/mL (75 - 250 nmol/L) Toxicity >100 ng/mL (>250 nmol/L) 46-Neh-552689:29 Basic Metabolic Profile (BMP) Comments: Test performed at:[facility] [address] [place] [address] ; handled by nohelia GAP [...] Comments: Please note revised CREATININE reference range mzundeovw10/22/2015. BUN 15 mg/dL (Normal) Range: 7-18 GLU 97 mg/dL (Normal) Range: 70-110 1-Doy-206074:05 Immunofixation Urine Comments: Test performed at:[facility] [address] [place] [id number] GEMMA Urine Comment (Normal) Comments: No monoclonality detected.Performed at: [place] [facility] [address] [id number] Director: Shady Jackson PhD, Phone: [phone] 9-Lrf-990809:05 PTH,INTACT Comments: ORDERED LIPID,LIVERDR.BENIGNO ORDERED BMP,PTHIN,VITD,URINE IMMUNTest performed at:[facility] [address] [place] [address] PTH,Intact 80 pg/mL (Abnormal) Range: 14-72 0-Cgf-417900:05 Vitamin D,25 Hydroxy Comments: Test performed at:[facility] [address] [place] [address] Vitamin D 25-OH 35.6 ng/mL (Normal) Comments: Vitamin D 25(OH) Status Range Deficiency <20 ng/mL (50nmol/L) Insuffciency 20 - 30 ng/mL (50 - 75 nmol/L) Sufficiency 30 - 100 ng/mL (75 - 250 nmol/L) Toxicity >100 ng/mL (>250 nmol/L) 8-Ais-099781:04 Basic Metabolic Profile (BMP) Comments: Test performed at:[facility] [address] [place] [address] GAP 8 (Normal) Range: 5-15 [...] 7-18 GLU 86 mg/dL (Normal) Range: 70-110 5-Esy-564819:04 Lipid Profile Comments: Test performed at:[facility] Rs[address] [place] [address] VLDL 19 mg/dL (Normal) Range: 5-40 [...] Risk :04 Liver Profile Comments: Test performed at:[facility] G[address] [place] [address] D BILI 0.16 mg/dL (Normal) Range: 0.00-0.30 T BILI 0.70 mg/dL (Normal) Range: 0.20-1.00 ALT 32 U/L (Normal) Range: 12-78 ALK P 53 U/L (Normal) Range: 50-136 AST 17 U/L (Normal) Range: 15-37 GLOB 3.1 g/dL (Normal) Range: 2.7-4.2 ALB 4.0 g/dL (Normal) Range: 3.4-5.0 T PROT 7.1 g/dL (Normal) Range: 6.4-8.2 :03 24 HR Urine Creatinine Comments: Test performed at:[facility] [address] [place] [address] UR.CREAT/24hr 1.3 {g/24_hr} (Normal) Range: 0.6-1.5 URINE CREAT 158.2 mg/dL (Normal) UR TOTAL VOLUME 0.85 L (Normal) UR COLLECT TIME 24.0 {HOURS} (Normal) 59-Lpq-95171:03 Miscellaneous Lab Procedure Comments: Comments: STONERISK PANEL #[id number](s) Ordered: STONERISK PANEL #[id number] performed at:[facility] [address] [place] [address] [facility] Comments: TEST RESULT UNITS REFERENCE INTERVALKidney Stone, [...] - 1800.0pH, 24 Hr Urine 5.3Ammonia, Urine 73615 ug/dL Not Estab.Ammonia, Urine 20 mEq/24 hr Not E stab.Saturation Ratios:Calcium Oxalate 21.12 High ratio 0.00 - 6.00Brushite 1.78 ratio 0.00 - 3.00Monosodium Urate 2.48 ratio 0.00 - 4.00Uric Acid 5.05 High ratio 0.00 - 1.20Struvite 0.01 ratio 0.00 - 1.00Please note:Graphic analysis of results will follow:Scanned image report available in EMR TESTING PERFORMED AT [facility]. ORIGINAL REPORT ON FILE IN LAB CONTAINS ADDITIONAL TEST SITE INFORMATION. 82-Rjw-345136:32 Urine Culture,Comprehensive Comments: PATIENT NOT FASTINGPERFORMED BY: [facility]6370 [facility] [id number] Information: [facility] [id number] Result 1 ECV (Abnormal) Comments: Escherichia coli, [...] report Culture,Comprehensi (Abnormal) ve :54 Urinalysis, Office (98547) UA - LEUKOCYTE ESTERASE Trace (Normal) UA - NITRITE Positive (Normal) URINE UROBILINGN RUDDY TIMED 2 mg/dL (Normal) UA - PROTEIN 30 mg/dL (Normal) UA - PH 6.0 (Normal) UA - BLOOD Negative (Normal) UA - SPECIFIC GRAVITY 1.030 (Abnormal) UA - KETONES Small mg/dL (Normal) UA - BILIRUBIN Negative (Normal) UA - GLUCOSE Negative (Normal) :42 HgA1C , Office (75735) HgA1C , Office 5.7 % (Normal) Range: 4.6 - 7.1 :58 CBC W/Diff, Automated Comments: Test performed at:[facility] [address] [place] [address] Absolute Lymph 1.31 {X10_3/ul} (Normal) Range: 0.83-4.51 [...] 4.2-5.4 WBC 5.2 K/mm3 (Normal) Range: 4.4-11.0 99-Ikv-966818:58 Vitamin B12 368 pg/mL (Normal) Comments: Test performed at:[facility] [address] [place] [address] Range: 211-911 79-Awd-367566:58 Vitamin D,25 Hydroxy Comments: Test performed at:[facility] [address] [place] [address] Vitamin D 25-OH 31.4 ng/mL (Normal) Comments: Vitamin D 25(OH) Status Range Deficiency <20 ng/mL (50nmol/L) Insuffciency 20 - 30 ng/mL (50 - 75 nmol/L) Sufficiency 30 - 100 ng/mL (75 - 250 nmol/L) Toxicity >100 ng/mL (>250 nmol/L) 37-Yvv-366565:46 Bilirubin, Direct Comments: LIPID LIVERASAEL [facility] MGDR.FAST CMP LIPID VITD [id number] performed at:[facility] [address] [place] [address] D BILI 0.16 mg/dL (Normal) Range: 0.00-0.30 81-Rbc-757937:46 Comprehensive Metabolic Profil Comments: DR.OFORI OROPEZA LIVERASAEL [facility] MGDR.FAST CMP LIPID VITD [id number] performed at:[facility] [address] [place] [address] GAP 6 (Normal) Range: 5-15 CO2 29.0 [...] 7-18 GLU 87 mg/dL (Normal) Range: 70-110 65-Tch-493149:46 Lipid Profile Comments: DR.OFORI SANDIP SINGHOKISAEL [facility] MGDR.FAST CMP LIPID VITD [id number] performed at:[facility] [address] [place] [id number] ; handled by cardio VLDL 25 mg/dL [...] 200-240 mg/dL Borderline >240 mg/dL High Risk 43-Bro-983356:46 Magnesium Comments: DR.OFORI SANDIP [facility] MGDR.FAST CMP LIPID VITD [id number] performed at:[facility] [address] [place], [place] [id number] MG 2.1 mg/dL (Normal) Range: 1.8-2.4 35-Ofb-341913:31 Comprehensive Metabolic Profil Comments: Test performed at:[facility] [address] [place] [address] GAP 6 (Normal) Range: 5-15 [...] 7-18 GLU 92 mg/dL (Normal) Range: 70-110 25-Hed-711955:31 Free T3 Comments: Test performed at:[facility] [address] [place] [address] FREE T3 3.1 pg/mL (Normal) Range: 2.18-3.98 60-Hxe-890705:31 Immunofixation Urine Comments: Test performed at:[facility] [address] [place] [address] GEMMA Urine Comment (Normal) Comments: No monoclonality detected.Performed at: [address], [place] [id number] Director: Shady Jackson PhD, Phone: [phone] 79-Evr-125202:31 T4 Free Direct Comments: Test performed at:[facility] [address] [place] [address] T4 FREE DIRECT 0.97 ng/dL (Normal) Range: 0.76-1.46 96-Xzt-867485:31 Thyroid Stim Hormone (TSH) Comments: Test performed at:[facility] [address] [place], [place] [address] TSH 0.41 {uIU/mL} (Normal) Range: 0.358-3.74 7-Mnu-096248:59 EBV Panel (44083) Comments: PATIENT NOT FASTINGPERFORMED BY: [facility] [address] [id number] Interpretation: SPRCS (Normal) Comments: EBV Interpretation Chart [...] <36.0 Equivocal 36.0 - 43.9 Positive >43.9 2-Xnp-939166:59 CBC W/AUTO DIFF WBC Comments: PATIENT NOT FASTINGPERFORMED BY: [facility]6370 [facility] [id number] Information: [id number] (11734) Immature Grans (Abs) 0.0 {x10E3/uL} (Normal) Range: [...] 3.77-5.28 WBC 5.2 {x10E3/uL} (Normal) Range: 3.4-10.8 5-Uaq-859233:05 URINE LOW CULTURE-RUDDY COL Comments: PATIENT NOT FASTINGPERFORMED BY: [facility]6370 [facility] [id number] Information: SRC:[facility] Y81673 COUNT ([id number]) Result 1 MUG (Normal) Comments: Mixed urogenital mtcyq114 Colonies/mL Urine Culture,Comprehensive Final report (Normal) 6-Pbc-192016:07 Urinalysis, Office (77591) UA - LEUKOCYTE ESTERASE Negative (Normal) UA - NITRITE Negative (Normal) URINE UROBILINGN RUDDY TIMED 2 mg/dL (Normal) UA - PROTEIN 30 mg/dL (Normal) UA - PH 6.0 (Normal) Comments: 5.5 UA - BLOOD Negative (Normal) UA - SPECIFIC GRAVITY 1.030 (Abnormal) UA - KETONES Negative mg/dL (Normal) UA - BILIRUBIN Negative (Normal) UA - GLUCOSE Negative (Normal) 69-Lgy-140349:56 Rapid Flu (85314 x 2) Influenza A Ag neg (Normal) 48-Zfi-146132:22 URINE LOW CULTURE-RUDDY COL Comments: PATIENT NOT FASTINGPERFORMED BY: [facility] [id number] Information: SRC:URC [id number] COUNT (34973) Result 1 MUG (Normal) Comments: Mixed urogenital flora3,000 Colonies/mL Urine Culture,Comprehensive Final report (Normal) 79-Rpc-716061:23 Urinalysis, Office (88833) UA - LEUKOCYTE ESTERASE Negative (Normal) UA - NITRITE Negative (Normal) URINE UROBILINGN RUDDY TIMED Normal mg/dL (Normal) UA - PROTEIN Negative mg/dL (Normal) UA - PH 6.0 (Normal) Comments: 5.5 UA - BLOOD Hemolyzed Trace (Normal) UA - SPECIFIC GRAVITY 1.030 (Abnormal) UA - KETONES 40 mg/dL (Abnormal) UA - BILIRUBIN Negative (Normal) UA - GLUCOSE Negative (Normal) 23-Bfk-33163:19 URINE CALCIUM RUDDY TIMED Comments: PATIENT NOT FASTINGPERFORMED BY: [facility] LabCouMentioned70 [facility] [id number] Information: START 10/05/14@630AM FINISH 24 Hour (24089) Calcium, Urine 24hr 330.0 {mg/24_hr} (Abnormal) Range: 100.0-300.0 Calcium, Urine 33.0 mg/dL (Normal) Comments: Results confirmed ondilution. 86-Xri-632546:34 CBC W/Diff, Automated Comments: DR LAW ORDERED CBCD VITD CMP B12 IVAN NAVARRO ORDERED LIPID LIVERTest performed at:[facility] [address] [place] [address] ; handled by Emelina Navarro Absolute Lymph [...] 4.2-5.4 WBC 4.9 K/mm3 (Normal) Range: 4.4-11.0 94-Mhz-821905:34 Comprehensive Metabolic Comments: Interface Comments: IDR V0-[id number] WO [id number] V0-[id number] Main V0- [id number] Lab [id number] 1034 [facility] HO1507 V0-[id number] Main2 LIVER Routine Profil 1 PA.MMURRA INT Main3 [id number] 1034 [id number] Transmitted Cookie ARDON 51844-4R 0788-1 OV LABORD CD.Queries INT.COM CD.Queries INT.DX CD.Queries INT.ORDDT CD.Queries INT.OVID CD.Queries INT.OVORD CD.Queries OECOM CD.Queries OM.PTARRIVED CD.Queries OM.REASONDiagnosis:Diagnosis: IDR V0-[id number] [facility] [id number] V0-B2014 74353Vkcfzhjto: [id number] Main V0-[id number] Lab [id number] 1034Diagnosis: RANGLE VM3429 V0-[id number] Main2 LIPID RoutDiagnosis: ine 1 PA.MMURRA INT Main3 20140812 6 9105 [id number]: 41772 Transmitted LisData Stacey 11100-8M 10025-Uepyhybsn: 1 OV LAB ORD CD.Queries INT.COM 12 HOURS FASTING,Diagnosis: MAY HAVE WATER. PLEASE SEND CO PY TO PRIMARY CAREDiagnosis: PHYSICIAN. CD.Queries INT.DX CD.Queries INT.ORDDTDiagnosis: CD.Queries INT.OVID CD.Queries INT.OVORD CD.QueDiagnosis: sneha OECOM CD.Queries OM .PTARRIVED CD.Queries OM.Diagnosis: REASONTest performed at:[facility] [address] [place] [address] GAP 3 (Abnormal) Range: 5-15 CO2 29.0 [...] 7-18 GLU 87 mg/dL (Normal) Range: 70-110 09-Biu-030534:34 Lipid Profile Comments: Interface Comments: IDR V0-[id number] [facility] [id number] V0-[id number] Main V0-[id number] Lab 20140827 1034 KEV CQ8759 V0-[id number] Main2 LIVER Routine 1 PA.MMURRA INT Main3 [id number] 1034 [id number] Transmitted LisData N [id number] 0788-1 OV LABORD CD.Queries INT.COM CD.Queries INT.DX CD.Queries INT.ORDDT CD.Queries INT.OVID CD.Queries INT.OVORD CD.Queries OECOM CD.Queries OM.PTARRIVED CD.Queries OM.REASONDiagnosis:Diagnosis: IDR V0-[id number] [facility] [id number] V0-B2014 28272Kbvdbdixn: [id number] Main V0-[id number] Lab 20140827 1034Diagnosis: KEV QO7976 V0-[id number] Main2 LIPID RoutDiagnosis: ine 1 PA.MMURRA INT Main3 20140812 6 1033 [id number]: 73675 Transmitted LisData N [id number] 65433-Koelhvvif: 1 OV LAB ORD CD.Queries INT.COM 12 HOURS FASTING,Diagnosis: MAY HAVE WATER. PLEASE SEND CO PY TO PRIMARY CAREDiagnosis: PHYSICIAN. CD.Queries INT.DX CD.Queries INT.ORDDTDiagnosis: CD.Queries INT.OVID CD.Queries INT.OVORD CD.QueDiagnosis: sneha OECOM CD.Queries OM .PTARRIVED CD.Queries OM.Diagnosis: REASONTest performed at:[facility] [address] [place] [address] VLDL 20 mg/dL (Normal) Range: 5-40 LDL [...] 200-240 mg/dL Borderline >240 mg/dL High Risk 25-Xkt-751185:34 Thyroid Stim Hormone Comments: Interface Comments: IDR V0- [id number] [facility] [id number] V0-[id number] Main V0- [id number] Lab 20140827 1034 RANGLE VD3713 V0-[id number] Main2 LIVER Routine (TSH) 1 PA.MMURRA INT Main3 [id number] 1030 [id number] Transmitted LisData N [id number] 0788-1 OV LABORD CD.Queries INT.COM CD.Queries INT.DX CD.Queries INT.ORDDT CD.Queries INT.OVID CD.Queries INT.OVORD CD.Queries OECOM CD.Queries OM.PTARRIVED CD.Queries OM.REASONDiagnosis:Diagnosis: IDR V0-[id number] [facility] [id number] V0-B2014 69670Hxtkhukop: [id number] Main V0-[id number] Lab 20140827 1034Diagnosis: KEV FG3406 V0-[id number] Main2 LIPID RoutDiagnosis: ine 1 PA.MMURRA INT Main3 9397803 6 1034 [id number]: 66372 Transmitted LisData N [id number] 95615-Ukkgowmnt: 1 OV LAB ORD CD.Queries INT.COM 12 HOURS FASTING,Diagnosis: MAY HAVE WATER. PLEASE SEND CO PY TO PRIMARY CAREDiagnosis: PHYSICIAN. CD.Queries INT.DX CD.Queries INT.ORDDTDiagnosis: CD.Queries INT.OVID CD.Queries INT.OVORD CD.QueDiagnosis: sneha OECOM CD.Queries OM .PTARRIVED CD.Queries OM.Diagnosis: REASONTest performed at:[facility] [address] [address] TSH 0.44 {uIU/mL} (Normal) Range: 0.358-3.74 86-Kdu-748053:34 Vitamin B12 439 pg/mL (Normal) Comments: Test performed at:[facility] [address] [place] [address] Range: 211-911 87-Hdq-459587:34 Vitamin D,25 Hydroxy Comments: Test performed at:[facility] [address] [place] [address] Vitamin D 25-OH 45.3 ng/mL (Normal) Comments: Vitamin D 25(OH) Status Range Deficiency <20 ng/mL (50nmol/L) Insuffciency 20 - 30 ng/mL (50 - 75 nmol/L) Sufficiency 30 - 100 ng/mL (75 - 250 nmol/L) Toxicity >100 ng/mL (>250 nmol/L) 66-Jyb-830243:13 HgA1C , Office (67838) HgA1C , Office 5.5 % (Normal) Range: 4.6 - 7.1 03-Kzg-78129:07 URINE LOW CULTURE-IDENTIFICATN Comments: PATIENT NOT FASTINGPERFORMED BY: [facility]6370 [facility] [id number] Information: [id number] (75568) Antimicrobial MIHEAD (Normal) Comments: S = Susceptible; [...] primarily for treating urinary tract infections. (CLSI, J470-A63,2009) Urine Final report (Abnormal) Culture,Comprehensive 55-Jkj-18916:54 Urinalysis, Office (98207) UA - LEUKOCYTE ESTERASE Negative (Normal) UA [...] CHOL 191 mg/dL (Normal) Comments: <200 mg/dL Yjljkpnzd243-058 mg/dL Borderline>240 mg/dL High Risk :54 LIVER BID 0.12 mg/dL (Normal) Range: 0.00-0.30 BIT 0.60 mg/dL (Normal) Range: 0.00-4.00 ALT 23 U/L (Normal) Range: 12-78 ALK 61 U/L (Normal) Range: 50-136 AST 13 U/L (Abnormal) Range: 15-37 ALB 3.8 g/dL (Normal) Range: 3.4-5.0 TPROT 7.0 g/dL (Normal) Range: 6.4-8.2 6-Oft-173207:34 CUUR URC See Note (Normal) Comments: ORGANISM [...] $ <=20 S(NF) indicates non-formulary drug at [facility]. Approval by Infectious DiseaseSpecialist required before non-formulary drugs may beordered and/or dispensed. 3-Spy-355020:33 [facility] Comments: How was Urine Obtained? INT [...] UCLAR Sl. Cloudy (Normal) UCOL Yellow (Normal) 23-Uic-534622:54 VITAMIN B-12 (CYANOCOBALAMIN) Comments: PATIENT NOT FASTINGPERFORMED BY: [facility] Jybylr3935 [address] [facility] [id number] (94348) Vitamin B12 439 pg/mL (Normal) Range: 211-946 71-Epi-534360:54 METABOLIC PANEL, COMPREHENSIVE Comments: PATIENT NOT FASTINGPERFORMED BY: [facility] Dhqkbc3317 [facility] [id number] (88227) ALT (SGPT) 15 [iU]/L (Normal) Range: 0-32 [...] Glucose, Serum 97 mg/dL (Normal) Range: 65-99 72-Juy-850399:54 CBC WITH MANUAL DIFF Comments: PATIENT NOT FASTINGPERFORMED BY: [facility] HospitalJyfapr0615 [facility] [id number] Information: [id number] (99383) Immature Grans (Abs) 0.0 {x10E3/uL} (Normal) Range: [...] 3.77-5.28 WBC 5.3 {x10E3/uL} (Normal) Range: 3.4-10.8 89-Ryg-142746:44 PARATHORMONE (58161) Comments: PATIENT NOT FASTINGPERFORMED BY: Nasty Gal Nesbqe7434 [facility] [place] [id number] PTH, Intact 38 pg/mL (Normal) Range: 15-65 57-Iza-590049:44 TSH (THYROID STIMULATING Comments: PATIENT NOT FASTINGPERFORMED BY: Nasty Gal [address]jse[address] [place] [id number] Information: [id number] HORMONE) (95760) TSH 0.535 {uIU/mL} (Normal) Range: 0.450-4.500 97-Ubw-325280:44 PHOSPHORUS (17088) Comments: PATIENT NOT FASTINGPERFORMED BY: Nasty Gal Vgkkou[address]85 [address] [place] [id number] Phosphorus, Serum 2.9 mg/dL (Normal) Range: 2.5-4.5 09-Utq-142304:21 Calcium Serum (13189) Comments: 10 days; PATIENT NOT FASTINGPERFORMED BY: [address] [id number] Information: [id number] Calcium, Serum 10.3 mg/dL (Abnormal) Range: 8.6-10.2 72-Fyx-598586:32 Urinalysis, Office (02132) UA - LEUKOCYTE ESTERASE Negative (Normal) UA - NITRITE Negative (Normal) URINE UROBILINGN RUDDY TIMED Normal mg/dL (Normal) UA - PROTEIN Negative mg/dL (Normal) UA - PH 6.5 (Normal) UA - BLOOD Non Hemolyzed Trace (Normal) UA - SPECIFIC GRAVITY 1.010 (Normal) UA - KETONES Negative mg/dL (Normal) UA - BILIRUBIN Negative (Normal) UA - GLUCOSE Negative (Normal) 56-Ajo-301606:41 URINE LOW CULTURE (RUDDY Comments: PATIENT NOT FASTINGPERFORMED BY: [address] [id number] Information: SRC: [id number] COL COUNT) (31944) Result 1 MUG (Normal) Comments: Mixed urogenital rpjia727 Colonies/mL Urine Culture,Comprehensive Final report (Normal) 1-Vuc-949850:12 CALCIUM SERUM (42686) Comments: redraw in 10 days; PATIENT NOT FASTINGPERFORMED BY: [place] 0294570 [facility] [id number] Information: [id number] Calcium, Serum 10.1 mg/dL (Normal) Range: 8.6-10.2 06-Umn-310681:13 CBC WITH MANUAL DIFF Comments: PATIENT NOT FASTINGPERFORMED BY: [place] 0294570 [facility] [id number] Information: [id number] (96164) Immature Grans (Abs) 0.0 {x10E3/uL} (Normal) Range: [...] 3.77-5.28 WBC 5.7 {x10E3/uL} (Normal) Range: 3.4-10.8 15-Nyt-554412:13 METABOLIC PANEL, COMPREHENSIVE Comments: PATIENT NOT FASTINGPERFORMED BY: [facility] HospitalWxlzfg1441 [facility] [id number] (43691) ALT (SGPT) 15 [iU]/L (Normal) Range: 0-32 [...] Glucose, Serum 95 mg/dL (Normal) Range: 65-99 40-Els-768931:13 URINE LOW CULTURE (RUDDY Comments: PATIENT NOT FASTINGPERFORMED BY: [facility] [id number] Information: SRC:UR [id number] COL COUNT) (10167) Result 1 ECV (Abnormal) Comments: Escherichia coli, [...] S Urine Final report Culture,Comprehensi (Abnormal) ve 46-Ctb-124818:00 URINE LOW CULTURE-RUDDY COL Comments: PATIENT NOT FASTINGPERFORMED BY: [place]link[place] [id number] Information: SRC:UR [id number] COUNT (29859) Result 1 NG36 (Normal) Comments: No growth in 36 - 48 hours. Urine Culture,Comprehensive Final report (Normal) 69-Gxz-843708:45 Urinalysis, Office (16463) UA - LEUKOCYTE ESTERASE Negative (Normal) UA - NITRITE Negative (Normal) URINE UROBILINGN RUDDY TIMED Normal mg/dL (Normal) UA - PROTEIN 30 mg/dL (Normal) UA - PH 6 (Abnormal) UA - BLOOD Negative (Normal) UA - SPECIFIC GRAVITY 1.030 (Abnormal) UA - KETONES 15 mg/dL (Abnormal) UA - BILIRUBIN Small (Normal) UA - GLUCOSE Negative (Normal) [id number]:51 Urinalysis, Office (73857) UA - LEUKOCYTE ESTERASE Negative (Normal) UA - NITRITE Negative (Normal) URINE UROBILINGN RUDDY TIMED Normal mg/dL (Normal) UA - PROTEIN Negative mg/dL (Normal) UA - PH 6 (Abnormal) UA - BLOOD Negative (Normal) UA - SPECIFIC GRAVITY 1.030 (Abnormal) UA - KETONES 15 mg/dL (Abnormal) UA - BILIRUBIN Negative (Normal) UA - GLUCOSE Negative (Normal) [id number] URINE LOW CULTURE-RUDDY COL Comments: PATIENT NOT FASTINGPERFORMED BY: [id number] [id number] Information: SRC:UR [id number] COUNT ([id number]) Result 1 ECV (Normal) Comments: Escherichia coli, [...] S Urine Final report (Normal) Culture,Comprehensiv e [id number] HgA1C , Office (74933) HgA1C , Office 5.7 % (Normal) Range: 4.6 - 7.1 [id number] Thin prep Pap Comments: Source.............Cervical;EndocervicalNo. of containers..01 CYTYC Thin Prep VialPATIENT NOT FASTINGPERFORMED BY: [facility] [address] [place] [id number] Information: [id number] ([id number]) Note: PAPSMR (Normal) Comments: The Pap smear [...] neopla sm of the cervixJulie Sukh Burrows, Nurse Wound (ASCP) [id number]-[id number]:06 LIPID PANEL (03030) Comments: PATIENT WAS FASTINGPERFORMED BY: [facility] Lijuzx2947 [facility] [id number] LDL/HDL Ratio 2.5 {ratio_units} (Normal) Range: 0.0-3.2 LDL Cholesterol Calc 138 mg/dL (Abnormal) Range: 0-99 VLDL Cholesterol Nahid 20 mg/dL (Normal) Range: 5-40 HDL Cholesterol 55 mg/dL (Normal) Comments: According to ATP-III Guidelines, HDL-C >59 mg/dL is considered anegative risk factor for CHD. Triglycerides 99 mg/dL (Normal) Range: 0-149 Cholesterol, Total 213 mg/dL (Abnormal) Range: 100-199 5-Bxj-816545:06 MICROALBUMIN: CREATININE RATIO Comments: PATIENT WAS FASTINGPERFORMED BY: Nasty GalPSE&G Children's Specialized HospitalTmceuq7697 [facility] [id number] (59146) AND (32293) Microalb/Creat Ratio 11.9 {mg/g_creat} (Normal) Range: 0.0-30.0 Microalbumin, Urine 15.8 ug/mL (Normal) Range: 0.0-17.0 Creatinine, Urine 132.4 mg/dL (Normal) Range: 15.0-278.0 3-Ser-898024:06 METABOLIC PANEL, COMPREHENSIVE Comments: PATIENT WAS FASTINGPERFORMED BY: Nasty Gal Vuxpnm4544 [facility] [id number] (33398) ALT (SGPT) 22 [iU]/L (Normal) Range: 0-32 [...] Glucose, Serum 99 mg/dL (Normal) Range: 65-99 5-Gnl-935669:06 VITAMIN B-12 (CYANOCOBALAMIN) Comments: PATIENT WAS FASTINGPERFORMED BY: [facility]6370 [facility] [id number] (25181) Vitamin B12 1401 pg/mL (Abnormal) Range: 211-946 4-Kik-494521:06 CBC (AUTO) (47253) Comments: PATIENT WAS FASTINGPERFORMED BY: [facility]6370 [facility] [id number] Platelets 242 {x10E3/uL} (Normal) Range: 155-379 RDW 13.5 % (Normal) Range: 12.3-15.4 MCHC 33.5 g/dL (Normal) Range: 31.5-35.7 MCH 30.4 pg (Normal) Range: 26.6-33.0 MCV 91 fL (Normal) Range: 79-97 Hematocrit 41.8 % (Normal) Range: 34.0-46.6 Hemoglobin 14.0 g/dL (Normal) Range: 11.1-15.9 RBC 4.60 {x10E6/uL} (Normal) Range: 3.77-5.28 WBC 4.6 {x10E3/uL} (Normal) Range: 3.4-10.8 0-Nht-394362:06 Vitamin D Hydroxy (14458) Comments: PATIENT WAS FASTINGPERFORMED BY: [facility]6370 [facility] [id number] Vitamin D, 25-Hydroxy 58.4 ng/mL (Normal) Range: 30.0-100.0 Comments: Vitamin D deficiency has been defined by the [place] ofMedicine and an Endocrine Society practice guideline as alevel of serum 25-OH vitamin D less than 20 ng/mL (1,2).The Endocrine Society went on to further define vitamin Dinsufficiency as a level between 21 and 29 ng/mL (2).1. IOM ([place] of Medicine). 2010. Dietary reference intakes for calcium and D. [place]: The National Academies Press.2. Robinson MF, Keila NC, Bruce ROBLES, et al. Evaluation, treatment, and prevention of vitamin D deficiency: an Endocrine Society clinical practice guideline. JCEM. 2010; 96(7):1911-30. :48 HgA1C , Office (77931) HgA1C , Office 5.2 % (Normal) Range: 4.6 - 7.1 :52 URINE LOW CULTURE-RUDDY COL Comments: PATIENT NOT FASTINGPERFORMED BY: [facility] Lvbsfp1458 [facility] [id number] Information: SRC:UR [id number] COUNT (33181) Result 1 MUG (Normal) Comments: Mixed urogenital Colonies/mL Urine Culture,Comprehensive Final report (Normal) :53 Urinalysis, Office (59337) UA - BILIRUBIN Negative (Normal) UA - [...] performed. Images were obtained from T1 to [id number]. Sagittal and coronal images were reconstruc anum. [...] Saldaña M.D.February 10, 2013 at 2:48:17 PM [id number] Signed GP/GP If you are the referring physician and would like to consult with [facility] who provided this interpretation, please contact José Miguel Sheikh at [phone]. If this radiologist is unavailable, youwill be directed to another radiologist to assist. If you are a zenon ent with a question regarding this report, pleasecontactyour referring physician directly. Professional Interpretation Provided By: [employer], Phone , These documents con tain legally [...] Rutherford M.D.February 10, 2013 at 4:25:07 PM [id number] Signed DN/DN If you are the referring physician and would like t o consult with theradiologist who provided this interpretation, please contact Court Lund M.D. at [phone]. If this radiologist is unavailable, youwillbe directed to another radiologist to [facility]. If you are a patient with a question regarding this report, pleasecontactyour referring physician directly. Professional Interpretation Provided By: [employer], Phone ,Fax These documents contain legally protected [...] on 02/10/131627 Sign by: COURT RUTHERFORD MD 78-Dzc-530302:10 BRAIN/HEAD WITHOUT CONTRAST Radiology Report See Note [...] Saldaña M.D.January 23, 2013 at 3:28:07 PM [id number] Signed GP/GP If you are the referring [facility] and would like to consult with theradiologist who provided this interpretation, please contact José Miguel Sheikh at [phone]. If this radiologist is unavailable, youwill be directed to another radiologist to assist. If you are a patient with a question regarding this report, pleasecontactyour referring physician directly. Professional Interpretation Provided By: [employer], Phone , These documents contain legally protected and confidential healthinformation intended only for the use of the individual or entity namedabove. If you are not the intended re cipient, you are hereby notifiedthatany disclosure, copying, distribution, or other use of these documents isstrictly prohibited. If you have received this information in error,pleasenotify the sender i delroyediately and arrange for the return or destructionofthese documents. Dictated on 01/23/13 1528 by Michael METZ,Ninfaranscribed on 01/23/13 1530 by ITS IMPORTSign by Michael METZ,Corey on 1531 Sign by: Michael METZ,Corey 06-Rqf-329607:10 THORACIC SPINE 3 VIEWS Radiology Report See [...] Saldaña M.D.January 23, 2013 at 3:37:41 PM [id number] Signed GP/GP If you are the referring physician and would l elizabeth to consult with theradiologist who provided this interpretation, please contact José Miguel Sheikh at [phone]. If this radiologist is unavailable, youwill be directed to another radiologis t to assist. If you are a patient with a question regarding this report, pleasecontactyour referring physician directly. Professional Interpretation Provided By: [employer], Phone ,Fax These documents contain legally protected [...] documents. Dictated on 01/23/13 1537 by Michael METZ,PhiliprieleTranscribed on 01/23/13 1539 by ITS IMPORTSign by Michael METZ,Corey on 01/23/13 1540 Sig n by: Corey Saldaña MD :11 Microscopic Examination Comments: PATIENT WAS FASTINGPERFORMED BY: [employer]6370 [facility] [id number] Bacteria Few (Normal) Mucus Threads Present (Normal) Epithelial Cells (non renal) 0-10 {/hpf} (Normal) Range: 0 - 10 RBC 0-3 {/hpf} (Normal) Range: 0 - 3 WBC 0-5 {/hpf} (Normal) Range: 0 - 5 :11 URINALYSIS, W/ MICRO (24192) Comments: PATIENT WAS FASTINGPERFORMED BY: [employer] Xtuxwa5430 [facility] [id number] Microscopic Examination See below: (Normal) Microscopic Examination MICRON (Normal) Comments: Microscopic follows if indicated. Nitrite, Urine Negative (Normal) Urobilinogen,Semi-Qn 0.2 mg/dL (Normal) Range: 0.0-1.9 Bilirubin Negative (Normal) Occult Blood Negative (Normal) Ketones Negative (Normal) Glucose Negative (Normal) Protein Negative (Normal) WBC Esterase Negative (Normal) Appearance Clear (Normal) Urine-Color Yellow (Normal) pH 6.0 (Normal) Range: 5.0-7.5 Specific [place] 1.019 (Normal) Range: 1.005-1.030 :11 METABOLIC PANEL, Comments: PATIENT WAS FASTINGPERFORMED BY: [employer] Jvrabr6699 [facility] [id number] Information: [id number] COMPREHENSIVE (95996) ALT (SGPT) 18 [iU]/L (Normal) Range: 0-32 [...] B-12 (CYANOCOBALAMIN) Comments: PATIENT WAS FASTINGPERFORMED BY: [facility] Rktazc8374 [facility] [place] [id number] (22516) Vitamin B12 314 pg/mL (Normal) Range: 211-946 :11 TSH (20851) Comments: PATIENT WAS FASTINGPERFORMED BY: [facility] [employer] Xgtnjs0710 Bethea RoadDublin [place] [id number] TSH 0.679 {uIU/mL} (Normal) Range: 0.450-4.500 :11 Vitamin D Hydroxy (64049) Comments: PATIENT WAS FASTINGPERFORMED BY: [employer]6370 [facility] [id number] Vitamin D, 25-Hydroxy 69.4 ng/mL (Normal) Range: 30.0-100.0 Comments: Vitamin D deficiency has been defined by the [place] ofMedicine and an Endocrine Society practice guideline as alevel of serum 25-OH vitamin D less than 20 ng/mL (1,2).The Endocrine Society went on to further define vitamin Dinsufficiency as a level between 21 and 29 ng/mL (2).1. IOM ([place] of Medicine). 2010. Dietary reference intakes for calcium and D. [place]: The National Academies Press.2. Robinson MF, Keila AGUERO, Bruce ROBLES, et al. Evaluation, treatment, and prevention of vitamin D deficiency: an Endocrine Society clinical practice guideline. JCEM. 2010; 96(7):1911-30. :11 LIPID PANEL (69722) Comments: PATIENT WAS FASTINGPERFORMED BY: [employer]6370 [facility] [id number] LDL/HDL Ratio 2.7 {ratio_units} (Normal) Range: 0.0-3.2 LDL Cholesterol Calc 130 mg/dL (Abnormal) Range: 0-99 VLDL Cholesterol Nahid 12 mg/dL (Normal) Range: 5-40 HDL Cholesterol 48 mg/dL (Normal) Comments: According to ATP-III Guidelines, HDL-C >59 mg/dL is considered anegative risk factor for CHD. Triglycerides 59 mg/dL (Normal) Range: 0-149 Cholesterol, Total 190 mg/dL (Normal) Range: 100-199 :33 EBV Panel (10144) Comments: PATIENT NOT FASTINGPERFORMED BY: [employer]6370 [facility] [id number] Interpretation: SPRCS (Normal) Comments: EBV Interpretation Chart [...] <0.9 Equivocal 0.9 - 1.0 Positive >1.0 78-Vlb-87386:33 CBC WITH MANUAL DIFF Comments: PATIENT NOT FASTINGPERFORMED BY: [facility] Qdaonr6892 [facility] [id number] Information: [id number] (77728) Immature Grans (Abs) 0.0 {x10E3/uL} (Normal) Range: [...] 3.77-5.28 WBC 5.3 {x10E3/uL} (Normal) Range: 4.0-10.5 96-Uax-15399:06 BILAT SCRN DIGITAL & CAD Radiology Report [...] Saldaña M.D.July 30, 2012 at 8:47:07 AM [id number] Signed GP/GP If you are the referring physician and would like to consult with mariel hurd who provided this interpretation, please contact José Miguel Sheikh at [phone]. If this radiologist is unavailable, youwill be directed to another radiologist to assist. If you are a pa tient with a question regarding this report, pleasecontactyour referring physician directly. Professional Interpretation Provided By: [employer], Phone , These documents c ontain legally [...] uctionofthese documents. Dictated on 07/30/12805 by Michael METZ,QuincyeleTranscribed on 07/30/1256 by ITS IMPORTSign by Michael METZ,Corey on 07/30/1258 Sign by: Corey Saldaña MD 68-Ysj-914258:10 URINE LOW CULTURE-IDENTIFICATN Comments: PATIENT NOT FASTINGPERFORMED BY: [facility]CoPSE&G [facility] HospitalLbkege3032 [facility] [id number] Information: [id number] (66810) Antimicrobial MIHEAD (Normal) Comments: S = Susceptible; [...] primarily for treating urinary tract infections. (CLSI, J718-A18,2009) Urine Final report (Normal) Culture,Comprehensive 01-Vfp-110788:54 Urinalysis, Office (04518) UA - BILIRUBIN Negative (Normal) UA - BLOOD Negative (Normal) UA - GLUCOSE Negative (Normal) UA - KETONES Negative mg/dL (Normal) UA - LEUKOCYTE ESTERASE Trace (Normal) UA - NITRITE Negative (Normal) UA - PH 7.0 (Normal) UA - PROTEIN Negative mg/dL (Normal) UA - SPECIFIC GRAVITY 1.025 (Normal) URINE UROBILINGN RUDDY TIMED Normal mg/dL (Normal) 55-Kkp-68826:05 DEXA BONE DENSITY STUDY () Radiology Report [...] is considered osteoporotic, as outlined above, according toWlake [facility] Health Organization (WHO) carmelo olson. Fracture risk [...] Saldaña M.D.May 06, 2012 at 1:38:17 PM [id number] Signed GP/GP If you are the referring physicia n and would like to consult with theradiologist who provided this interpretation, please contact José Miguel Sheikh at [phone]. If this radiologist is unavailable, youwill be directed to [facility] radiologist to assist. If you are a patient with a question regarding this report, pleasecontactyour referring physician directly. Professional Interpretation Provided By: [employer], Phone , These documents contain legally protected and confidential healthinformation intended only for the use of the individual or entity namedabove. If you are not the intended recipie nt, you are hereby notifiedthatany disclosure, copying, distribution, or other use of these documents isstrictly prohibited. If you have received this information in error,pleasenotify the sender immedrosy ately and arrange for the return or destructionofthese documents. Dictated on 05/06/12 0916 by Ninfa Saldaña MDranscribed on 05/06/12 1345 by ITS IMPORTSign by Corey Saldaña MD on 2 1346 Sign by: Corey Saldaña MD 84-Syk-162086:18 L/S SPINE,MIN 4 VIEWS Radiology Report See [...] EDTElectronically Signed GP/GP Professional Interpretation Provided By: [facility], , To consult with a radiologist regarding this report, please call our 11O4vguyder line @ Dictated on 01/09/12 1614 by Ninfa Saldaña MDranscribed on 01/10/121940 by ITS IMPORTSign by Corey Saldaña MD on 01/10/121941 Sign by: Corey Saldaña MD 4-Xar-426521:36 METABOLIC PANEL, COMPREHENSIVE Comments: PATIENT WAS FASTINGPERFORMED BY: [facility]CoPSE&[facility] Special[facility] HospitalAeghmr6770 [facility] [id number] (36180) ALT (SGPT) 21 [iU]/L (Normal) Range: 0-40 [...] Glucose, Serum 92 mg/dL (Normal) Range: 65-99 :36 LIPID PANEL (31720) Comments: PATIENT WAS FASTINGPERFORMED BY: [facility] Bvlvtm0027 [facility] [id number] LDL/HDL Ratio 2.5 {ratio_units} (Normal) Range: 0.0-3.2 LDL Cholesterol Calc 118 mg/dL (Abnormal) Range: 0-99 VLDL Cholesterol Nahid 15 mg/dL (Normal) Range: 5-40 HDL Cholesterol 48 mg/dL (Normal) Comments: According to ATP-III Guidelines, HDL-C >59 mg/dL is considered anegative risk factor for CHD. Triglycerides 76 mg/dL (Normal) Range: 0-149 Cholesterol, Total 181 mg/dL (Normal) Range: 100-199 8-Zwm-152990:36 Vitamin D Hydroxy (32444) Comments: PATIENT WAS FASTINGPERFORMED BY: [facility] Bhbmzo6498 [facility] [id number] Vitamin D, 25-Hydroxy 36.0 ng/mL (Normal) Range: 30.0-100.0 Comments: Vitamin D deficiency has been defined by the [place] ofPrem[facility] Centerc[facility] and an Endocrine Society practice guideline as alevel of serum 25-OH vitamin D less than 20 ng/mL (1,2).The Endocrine Society went on to further define vitamin Dinsufficiency as a level between 21 and 29 ng/mL (2).1. IOM ([place] of Medicine). 2010. Dietary reference intakes for calcium and D. [place]: The National Academies Press.2. Robinson MF, Keila AGUERO, Bruce ROBLES, et al. Evaluation, treatment, and prevention of vitamin D deficiency: an Endocrine Society clinical practice guideline. JCEM. 2010; 96(7):1911-30. 1-Ujk-186393:36 CBC WITH MANUAL DIFF Comments: PATIENT WAS FASTINGPERFORMED BY: [facility] Icwjog5373 [facility] [id number] Information: [id number] (21929) Immature Grans (Abs) 0.0 {x10E3/uL} (Normal) Range: [...] 3.80-5.10 WBC 4.3 {x10E3/uL} (Normal) Range: 4.0-10.5 47-Ryo-30136:35 BILAT SCRN DIGITAL & CAD Radiology Report [...] radiologist regarding this report, please call our [id number] line @ Dictated on 07/25/11 3944 by Michael METZ, Ninfaranscribed on 07/27/11 1144 by ITS IMPORTSign by Corey Saldaña MD on 07/27/11 1145 Sign by: Corey Saldaña MD 16-Vfs-120801:59 URINE LOW CULTURE-IDENTIFICATN Comments: PERFORMED BY: [facility] Ftvrmc3306 [facility] [id number] Information: SRC: URINE (70393) Result 1 NG36 (Normal) Comments: No growth in 36 - 48 hours. Urine Culture,Comprehensive Final report (Normal) 99-Syv-354180:31 URINE LOW CULTURE-RUDDY COL Comments: PATIENT NOT FASTINGPERFORMED BY: [facility] Yltkwa9367 [facility] [id number] Information: SRC: URINE COUNT (85247) Antimicrobial MIHEAD (Normal) Comments: S = Susceptible; [...] primarily for treating urinary tract infections. (CLSI, E160-B96,2009) Urine Final report (Normal) Culture,Comprehensive 09-Joe-719988:06 Urinalysis, Office (35880) UA - BILIRUBIN Negative (Normal) UA - BLOOD Non Hemolyzed Moderate (Normal) UA - GLUCOSE Negative (Normal) UA - KETONES Negative mg/dL (Normal) UA - LEUKOCYTE ESTERASE Small (Normal) UA - NITRITE Negative (Normal) UA - PH 6.0 (Normal) UA - PROTEIN Negative mg/dL (Normal) UA - SPECIFIC GRAVITY 1.025 (Normal) URINE UROBILINGN RUDDY TIMED Normal mg/dL (Normal) 1-Iva-437319:26 URINE LOW CULTURE-RUDDY COL Comments: PATIENT NOT FASTINGPERFORMED BY: [facility] Xxtgoa6133 [place] [id number] Information: SRC: URINE COUNT (06706) Result 1 ECV (Normal) Comments: Escherichia coli, [...] STrimethoprim/Sulfa S Urine Final report (Normal) Culture,Comprehensive 3-Zuw-200141:03 Urinalysis, Office (59457) UA - BILIRUBIN Negative (Normal) UA - BLOOD Hemolyzed Small (Normal) UA - GLUCOSE Negative (Normal) UA - KETONES Negative mg/dL (Normal) UA - LEUKOCYTE ESTERASE Negative (Normal) UA - NITRITE Negative (Normal) UA - PH 6.0 (Normal) UA - PROTEIN Negative mg/dL (Normal) UA - SPECIFIC GRAVITY 1.025 (Normal) URINE UROBILINGN RUDDY TIMED Normal mg/dL (Normal) 34-Okd-50992:55 Urinalysis, Office (01265) UA - LEUKOCYTE ESTERASE Small (Normal) UA - NITRITE Negative (Normal) URINE UROBILINGN RUDDY TIMED Normal mg/dL (Normal) UA - PROTEIN Negative mg/dL (Normal) UA - PH 6.0 (Normal) UA - BLOOD Hemolyzed Trace (Normal) UA - SPECIFIC GRAVITY 1.025 (Normal) UA - KETONES Negative mg/dL (Normal) UA - BILIRUBIN Negative (Normal) UA - GLUCOSE Negative (Normal) 8-Fpy-159439:23 DEXA BONE DENSITY STUDY (HP) Radiology Report See Note Comments: Exam Number: [id number] CLINICAL:This is a 64-year-old female patient with history of osteopenia. EXAMINATION:DUAL ENERGY X-RAY ABSORPTIOMETRY / DEXA. TECHNIQUE:Bone Density Measurements (BMD) of lumbar (Normal) spine and bilateral hipswere obtained using a [employer] scanner.. COMPARISON:Comparison is made with prior examination [...] http://www.nof.org Reported By: COREY SALDAÑA 21-Dec-19 METHYLM [id number] 0614 nmol/L Range: 73-376 1017:48 (Abnormal) Comments: The reference range for methylmalonic acid has been set at+3sd above the mean for healthy blood bank donors. In theclinical assessment of patients with megaloblastic anemiasa cutoff of +3sd provides gre ater specificity in thediagnosis of the vitamin deficiency states, despite thesacrifice of some sensitivity. 11-May-20 VIT D,25 89217 38.5 ng/mL Range: 32.0-100.0 1017:48 (Normal) Comments: Recent studies consider the lower limit of 32.0 ng/mL to marquita threshold for optimal health.Carlos HERNANDEZ. J Nutr. 2004;135(2):317- 22.Performed at: - [facility] [address] [id number] Director: Quincy Merida MDPerformed at: [facility]Co[address] [id number] Director: Britt Sanchez MD 2-Tih-376593:24 CBCD,SMEAR DIFF RED CELL MORPH SeeNote {NORMAL} [...] 11.6-14.6 WBC 5.0 K/mm3 (Normal) Range: 4.4-11.0 4-Aml-538547:23 VITAMIN B12 485 pg/mL (Normal) Range: 254-1320 1-Dbh-539416:23 TSH 0.60 {uIU/mL} (Normal) Range: 0.358-3.74 7-Mqc-910929:23 LIPID CHOL 203 mg/dL (Abnormal) Comments: <200 mg/dL Bytxuztxk133-781 mg/dL Borderline>240 mg/dL High Risk HDL 49 mg/dL (Normal) Comments: Reference RangeHDL <40 mg/dL Low HDL CholesterolHDL >or= 60 mg/dL High HDL Cholesterol LDL 130 mg/dL (Normal) Range: 0-130 TRIG 120 mg/dL (Normal) Comments: Serum Triglycerides Reference IntervalNormal <150 mg/dLBorderline high 150 - 199 mg/dLHigh 200 - 499 mg/ dLVery High > or = 500 mg/dL VLDL 24 mg/dL (Normal) Range: 5-40 1-Jnr-231537:23 COMP METABOLIC CO2 29.0 mmol/L (Normal) Range: [...] (Normal) GLU 95 mg/dL (Normal) Range: 70-110 7-Yep-100605:21 BILAT SCRN DIGITAL & CAD Radiology Report See Note (Normal) Comments: Exam Number: [id number] MAMMOGRAM, BILATERAL SCREENING DIGITAL AND CAD HISTORYRoutine [...] werealso examined wit h computer-aided detection software ([employer].). Reported By: JOSHUA MCGEE M.D. 18-May-2009 VIT D,25 78734 81.6 ng/mL Range: 32.0-100.0 11:41 (Normal) Comments: Recent studies consider the lower limit of 32.0 ng/mL to marquita threshold for optimal health.Carlos HERNANDEZ. J Nutr. 2004;135(2):317- 22.Performed At: [facility]6[address] [place], [place] [id number] 91-Wla-11492:59 COMP METABOLIC A/G 1.2 {RATIO} (Normal) Range: [...] VLDL 23 mg/dL (Normal) Range: 5-40 :59 PTH,FBVIUE85129 PTH,Intact 54 pg/mL (Normal) Range: 15-65 Comments: Performed At: [address] [id number] :59 VIT D,25 15509 145.0 ng/mL (Abnormal) Range: 32.0-100.0 Comments: Recent studies consider the lower limit of 32.0 ng/mL to marquita threshold for optimal health.Carlos HERNANDEZ. J Nutr. 2004;135(2):317-22. 4-Snf-083780:42 RIBS UNIL 2V NO CXR Radiology Report See Note (Normal) Comments: Exam Number: [id number] RIGHT RIBS 4 VIEWS STATEMENTRight rib pain. PRIOR STUDIESNone. The bones appear osteopenic. This limits evaluation for acutefracture. On l view only, there is a questionable cor tical defectreferrable to the lateral aspect of the right 7th rib. There isquestionable adjacent soft tissue swelling. This could represent anondisplaced fracture. Correlation with point tenderness c floydld floydprowan. Otherwise, no fracture deformity or pneumothorax is shown. IMPRESSIONQuestionable nondisplaced fracture lateral margin of the right 7thrib. No pneumothorax. Reported By: DALLIN VALENZUELA M.D. 7-Ypa-833105:39 CHEST, PA AND LATERAL Radiology Report See Note (Normal) Comments: Exam Number: [id number] CHEST PA AND LATERAL STATEMENTRib pain. COMPARISON [...] as described. Reported By: DALLIN VALENZUELA M.D. 2-Pns-166176:2 CA 9.2 mg/dL (Normal) Comments: ORDERED LIPID,LIVERDR.THANH ORDERED VITD,PTH,TSH,CALCIUM,LIPID ORDERED CALCIUM,PTH,SPEP,UPEP 6 Range: 8.5-10.1 7-Rdg-113692:26 LIPID Comments: ORDERED LIPID,LIVERDR.THANH ORDERED VITD,PTH,TSH,CALCIUM,LIPID ORDERED [...] mg/dL VLDL 11 mg/dL (Normal) Range: 5-40 3-Ors-269267:26 LIVER Comments: ORDERED LIPID,LIVERDR.THANH ORDERED VITD,PTH,TSH,CALCIUM,LIPID ORDERED CALCIUM,PTH,SPEP,UPEP ALB 3.7 g/dL (Normal) Range: 3.4-5.0 ALK P 59 U/L (Normal) Range: 50-136 ALT 34 U/L (Normal) Range: 30-65 AST 21 U/L (Normal) Range: 15-37 D BILI 0.07 mg/dL (Normal) Range: 0.00-0.30 T BILI 0.53 mg/dL (Normal) Range: 0.00-1.00 T PROT 6.8 g/dL (Normal) Range: 6.4-8.2 8-Faj-972876:26 PROT.[id number] Comments: ORDERED LIPID,LIVERDR.FAST ORDERED VITD,PTH,TSH,CALCIUM,LIPID ORDERED CALCIUM,PTH,SPEP,UPEP ALBUMIN,UR 34.4 % (Normal) UBGJA-0-OMRH,U 2.8 % (Normal) HJJNZ-7-BMQG,U 11.5 % (Normal) BETA GLOB,U 30.6 % (Normal) GAMMA GLOB,U 20.7 % (Normal) M-SPIKE,U SeeNote % (Normal) Comments: Result: Not Observed NOTE Comment (Normal) Comments: Protein electrophoresis scan will follow via mail orcourier. PROTEIN,UR 20.0 mg/dL (Abnormal) Range: 0.0-15.0 0-Eja-613954:26 PTH,[id number] Comments: ORDERED LIPID,LIVERDR.FAST ORDERED VITD,PTH,TSH,CALCIUM,LIPID ORDERED CALCIUM,PTH,SPEP,UPEP PTH,Intact 71 pg/mL (Abnormal) Range: 15-65 Comments: Performed At: [place] [id number] [place], [place] [id number] 9-Sgj-890471:26 SPE [id number] Comments: ORDERED LIPID,LIVERDR.FAST ORDERED VITD,PTH,TSH,CALCIUM,LIPID ORDERED CALCIUM,PTH,SPEP,UPEP [...] orcourier. PROTEIN,TOTAL 6.6 g/dL (Normal) Range: 6.0-8.5 5-Xtv-786602:26 TSH 0.65 {uIU/mL} (Normal) Comments: ORDERED LIPID,LIVERDR.FAST ORDERED VITD,PTH,TSH,CALCIUM,LIPIDDR ORDERED CALCIUM,PTH,SPEP,UPEP Range: 0.34-4.82 :26 VIT D,25 45440 31.0 ng/mL (Abnormal) Comments: ORDERED LIPID,LIVERDR.FAST ORDERED VITD,PTH,TSH,CALCIUM,LIPIDDR ORDERED CALCIUM,PTH,SPEP,UPEP Range: 32.0-100.0 Comments: Recent studies consider the lower limit of 32.0 ng/mL to marquita threshold for optimal health.Carlos HERNANDEZ. J Nutr. 2004;135(2):317-22. 18-Tfp-132381:15 LQD PAP [id number] Comments: CYTOLOGY INFORMATION:- CLINICAL INFORMATION: - DATE LMP/MENOPAUSE: LMP- COLLECTION VIAL: Thin Prep Vial- VP ANCILLARY SOURCE: CERVICAL/ENDOCERVICAL- COLLECTION TECHNIQUE: BRUSH/SPATULA ADEQ Comment [...] no HPV testing was performed. .Performed At: [address] [id number] [facility] Comment (Normal) Comments: The Pap smear is a screening test designed to aid in thedetection of premalignant and malignant conditions of theuterine cervix. It is not a diagnostic procedure andshould not be used as the sole means of detecting cervicalcancer. Both false-positive and false-negative reports dooccur. . PERFORM Comment (Normal) Comments: Jossue Cantu, Nurse Wound ([facility]) 65-Leo-160040:23 UNILAT LT DIAG DIGITAL & CAD Radiology Report See Note (Normal) Comments: Exam Number: [id number] LEFT DIAGNOSTIC DIGITAL MAMMOGRAM CLINICAL INFORMATIONAbnormal mammogram. [...] mammograms werealso examined with computer-aided detection software ([employer] Reported By: DALLIN SAN M.D. 61-Gbe-46245:05 [facility] Radiology Report See Note (Normal) Comments: Exam Number: [id number] BILATERAL DIGITAL SCREENING MAMMOGRAM COMPARISONApril 2005. MLO [...] The mammogramswere also examined with computer-aided detection software([employer].). Reported By: YORDAN HILL M.D. :05 SPINE,LUMBAR (ROUTINE) Radiology Report See Note (Normal) Comments: Exam Number: [id number] MRI LUMBAR SPINE REASON FOR EXAMPersistent low [...] Report See Note (Normal) Comments: Exam Number: [id number] DEXA BONE DENSITY STUDY Done for osteopenia, also there is a history of Evista therapy. COMPARISON STUDIESDece2004. The study is performed using a Hologic [...] L5 onS1. Reported By: YORDAN HILL M.D. 5-Ovw-957150:13 Urinalysis, Office (20889) UA - BILIRUBIN Negative (Normal) UA - [...] PHOS 3.1 mg/dL (Normal) Range: 2.5-4.9 :52 PTH,[id number] PTH,Intact 77 pg/mL (Abnormal) Range: 12-65 :52 VITD 1,25 97291 55.1 pg/mL (Normal) Range: 15.9-55.6 Comments: Performed At: [address] [id number] At: Lab[address] [id number] 69-Rtl-411083:17 CHEST, PA AND LATERAL (MT) Radiology Report See Note (Normal) Comments: Exam Number: [id number] PA AND LATERAL CHEST HISTORYFollow up pneumothorax. [...] T PROT 6.6 g/dL (Normal) Range: 6.4-8.2 19-Tlt-943248:40 CULTURE, URINE URINE CULTURE See Note {CFU/mL} (Normal) Comments: COLONY COUNT 1000-10,000 ORGANISM 1: MIXED GRAM POS & NEG ORGANISMS :39 L/S SPINE,MIN 4 VIEWS (MT) Radiology Report See Note (Normal) Comments: Exam Number: [id number] FIVE VIEW LUMBAR SPINE, AP, LATERAL, BOTH OBLIQUES, AND A TSCME-SXPXB1-M7. HISTORYBeing done for low back pain. FINDINGSThere [...] correlation needed. Reported By: BRETT REYNA M.D. 27-Ueo-080564:23 BMP BUN 8 mg/dL (Normal) Range: 7-18 [...] 6676 11 {IU/mL} (Normal) Range: 0-34 2:40 28-Qip-588124:40 PTH,[id number] PTH,Intact 45 pg/mL (Normal) Range: 12-65 :40 VIT D,25 25817 88.1 ng/mL (Normal) Range: 32.0-100.0 Comments: Recent studies consider the lower limit of 32.0 ng/mL to marquita threshold for optimal health.Carlos BW. J Nutr. 2004;135(2):317-22. :40 VITD 1,25 40263 73.8 pg/mL (Abnormal) Range: 15.9-55.6 Comments: Performed At: [address] [id number] At: [facility] [address] [place], [place] [id number] 04-Wce-409523:39 LIPID CHOL 182 mg/dL (Normal) Comments: <200 [...] 7.6 g/dL (Normal) Range: 6.4-8.2 :34 CALCULI 223859 CA OXAL DIHYDR 35 % (Normal) CA OXAL MONOHYD 15 % (Normal) CA PHOSPHATE 50 % (Normal) COLOR Archuleta (Normal) COMMENT Comment (Normal) Comments: Physician questions regarding Calculi Analysis contactLabCo at: [phone].Performed At: [address] [id number] Comment Comment (Normal) Comments: Percentage (Represents the % composition) NIDUS SeeNote (Normal) Comments: Result: No Nidus [...] 3.5-5.1 NA 137 mmol/L (Normal) Range: 136-145 62-Lkb-240555:25 CBC Comments: COMMENTS: PAT FOR OR 01/01/07 [...] GLU 2 HR GLU GTT-2 HOUR from 0504:X81272A. Range: 70-120 :50 GLU GTT-1 HOUR 176 mg/dL (Abnormal) Comments: 2HR GTT GLU 1 HR GLU GTT-1 HOUR from 0504:T27838H. Range: 120-170 :24 GLU GTT-30 min. 145 mg/dL (Normal) Comments: 2HR GTT GLU 1/2 HR GLU GTT-30 min. from 0504:H57301R. Range: 110-170 :50 GLU GTT-FASTING 73 mg/dL (Normal) Comments: 2HR GTT FASTING GLU GTT-FASTING from 0504:C44305N. Range: 70-110 Comments: GLUCOSE TOLERANCE TEST Reference Interval Non- Adults Fasting 70 - 110 30 minutes 110 - 170 1 hour 120 - 170 2 hour 70 - 120 3 hour 70 - 110 4 hour 70 - 110 5 hour 70 - 110 58-Tlv-004559:36 CULTURE, URINE URINE CULTURE See Note {CFU/mL} [...] $$$ >=256 R TRIMETHOPRIM/SULFAMETHOXAZ $$ <=10 S 36-Yee-795331:36 ROUTINE UA BILIRUBIN URINE SeeNote (Normal) Comments: [...] 0.2 EU/dl (Normal) Range: 0.2 - 1.0 05-Vlm-969604:00 CULTURE, URINE URINE CULTURE See Note {CFU/mL} [...] $$ <=10 S VANCOMYCIN $$ 2 S 06-Qtn-935140:40 CULTURE, URINE URINE CULTURE See Note {CFU/mL} [...] COMMENTS: NOWPrecautions*: NOT APPLICABLE 45 Range: 2.5-4.9 :45 PTH,[id number] Comments: COMMENTS: NOWPrecautions*: NOT APPLICABLE PTH,Intact 31 pg/mL (Normal) Range: 12-65 Comments: Performed At: [address] [id number] 5-Ylm-137919:30 CALCULI 999033 Comments: COMMENTS: STONE ANALYSISPrecautions*: NOT APPLICABLE CA OXAL DIHYDR 55 % (Normal) CA OXAL MONOHYD 10 % (Normal) CA PHOSPHATE 35 % (Normal) COLOR Archuleta (Normal) Comment Comment (Normal) Comments: Percentage (Represents the % composition) COMMENT Comment (Normal) Comments: Physician questions regarding Calculi Analysis contactLabCo at: [phone].Performed At: [address] [id number] NIDUS SeeNote (Normal) Comments: Result: No Nidus [...] T PROT 5.9 g/dL (Abnormal) Range: 6.4-8.2 6-Akb-884563:00 COMPLETE UA Comments: COMMENTS: ROOM 9Precautions*: NOT [...] (Normal) Range: 0-5 Comments: Result: 0-5 SEEN 7-Tgr-260086:00 CULTURE, URINE Comments: COMMENTS: ROOM 9Precautions*: NOT [...] 3.5-5.1 NA 137 mmol/L (Normal) Range: 136-145 6-Dsq-406319:20 CBCD Comments: Precautions*: NOT APPLICABLE BASO% 0.1 [...] 11.6-14.6 WBC 12.4 K/mm3 (Abnormal) Range: 4.4-11.0 2-Qof-297463:20 COMPLETE UA Comments: Precautions*: NOT APPLICABLE BACTERIA [...] (Normal) Range: 0-5 Comments: Result: 0-5 SEEN 03-Wex-829684:52 Urinalysis, Office (47962) UA - BILIRUBIN Negative (Normal) UA - BLOOD Hemolyzed Large (Normal) UA - GLUCOSE Negative (Normal) UA - KETONES Negative mg/dL (Normal) UA - LEUKOCYTE ESTERASE Large (Normal) UA - NITRITE Positive (Normal) UA - PH 5.0 (Normal) UA - PROTEIN 30 mg/dL (Normal) UA - SPECIFIC GRAVITY 1.020 (Normal) URINE UROBILINGN RUDDY TIMED 2 mg/dL (Normal) 32-Syg-468967:30 CULTURE, URINE URINE CULTURE See Note {CFU/mL} [...] $$$ 128 R TRIMETHOPRIM/SULFAMETHOXAZ $$ <=10 S 12-Aik-270452:15 MANDI-D 688366 MANDI-DIRECT 23 U/mL (Normal) Range: 0-99 Comments: Negative <100 Equivocal 100 - 120 Positive >120Performed At: [facility] [address] [place], [place] [id number] :15 B12/FOLATES 810 FOLATES,S 2013 > 24.0 [...] 5.6 K/mm3 (Normal) Range: 4.4-11.0 :15 CELIAC [id number] ANTIGLIADIN IGA <1 U/mL (Normal) Range: 0-4 [...] Fatigue Planned Observations CBC W/AUTO DIFF WBC (95104)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 On: 5-Ibc-767600:36 Request MICROALBUMIN: CREATININE RATIO (13723) AND (29012)Indication: Abnormal glucose tolerance test On: 8-Lgg-257465:22 Request METABOLIC PANEL, COMPREHENSIVE (64341)Indication: Abnormal glucose tolerance test On: :22 Request CALCIUM SERUM (79669)Indication: Hypercalcemia On: :13 Request PARATHORMONE (58289)Indication: Hypercalcemia On: :13 Request Calcium Serum (64517)Indication: Hypercalcemia On: 95-Vee-630533:07 Request METABOLIC PANEL, COMPREHENSIVE (77016)Indication: Abnormal glucose tolerance test On: : Request VITAMIN B-12 (CYANOCOBALAMIN) (26069)Indication: Vitamin B12 deficiency (dietary) anemia On: : Request MICROALBUMIN: CREATININE RATIO (20203) AND (83142)Indication: Abnormal glucose tolerance test On: : Request LIPID PANEL (03120)Indication: Other hyperlipidemia On: : Request Vitamin D Hydroxy (55837)Indication: Vitamin D deficiency, unspecified On: : Request CBC W/AUTO DIFF WBC (03220)Indication: Vitamin B12 deficiency (dietary) anemia On: :25 Request VITAMIN B-12 (CYANOCOBALAMIN) (66628)Indication: Vitamin B12 deficiency (dietary) anemia On: :14 Request MICROALBUMIN: CREATININE RATIO (56664) AND (57056)Indication: Abnormal glucose tolerance test On: :14 Request HGB A1C (44276)Indication: Abnormal glucose tolerance test On: :14 Request CBC (AUTO) (23640)Indication: Calcium nephrolithiasis On: :13 Request Vitamin D Hydroxy (82352)Indication: Vitamin D deficiency, unspecified On: :13 Request LIPID PANEL (04061)Indication: Other hyperlipidemia On: :13 Request METABOLIC PANEL, COMPREHENSIVE (70791)Indication: Other hyperlipidemia On: :13 Request MICROALBUMIN: CREATININE RATIO (66213) AND (22570)Indication: Abnormal glucose tolerance test On: :32 Request Hemoglobin Glyclated (HGB A1C) (91839)Indication: Abnormal glucose tolerance test On: 30-Gwd-15537:32 Request METABOLIC PANEL, COMPREHENSIVE (42335)Indication: Other hyperlipidemia On: :32 Request LIPID PANEL (83887)Indication: Other hyperlipidemia On: :31 Request VITAMIN B-12 (CYANOCOBALAMIN) (26888)Indication: Vitamin B12 deficiency (dietary) anemia On: :31 Request CBC W/AUTO DIFF WBC (50375)Indication: Vitamin B12 deficiency (dietary) anemia On: :31 Request VITAMIN B-12 (CYANOCOBALAMIN) (38717)Indication: Vitamin B12 deficiency (dietary) anemia On: :22 Request LIPID PANEL (49879)Indication: Other hyperlipidemia On: :22 Request METABOLIC PANEL, COMPREHENSIVE (66049)Indication: Abnormal glucose tolerance test On: 25-Zrc-963916:21 Request URINE LOW CULTURE-RUDDY COL COUNT (13455)Indication: Dysuria (Renamed from Difficult or painful urination) On: 10-Wfg-467412:54 Request CBC, PLATELETS & AUT DIFF (09671)Indication: Vitamin B12 deficiency (dietary) anemia On: 5-Swf-345493:42 Request VITAMIN B-12 (CYANOCOBALAMIN) (43025)Indication: Vitamin B12 deficiency (dietary) anemia On: 0-Toj-451950:42 Request Vitamin D Hydroxy (78955)Indication: Vitamin D deficiency, unspecified On: 8-Ilx-742919:41 Request LIPID PANEL (33387)Indication: Other hyperlipidemia On: 8-Jxc-590910:41 Request METABOLIC PANEL, COMPREHENSIVE (27179)Indication: Other hyperlipidemia On: 5-Fmq-317955:41 Request METABOLIC PANEL, COMPREHENSIVE (81792)Indication: Osteoporosis (Renamed from OP (osteoporosis)) On: 07-Fhi-567995:41 Request UPEP (39080)Indication: Osteoporosis (Renamed from OP (osteoporosis)) On: 22-Ktx-706549:28 Request SPEP (91520)Indication: Osteoporosis (Renamed from OP (osteoporosis)) On: 80-Sar-166451:28 Request TSH (29929)Indication: Fluid retention On: 72-Arr-281392:43 Request Vitamin D Hydroxy (39450)Indication: Vitamin D deficiency, unspecified On: :29 Request VITAMIN B-12 (CYANOCOBALAMIN) (32613)Indication: Vitamin B12 deficiency (dietary) anemia On: :29 Request CBC W/AUTO DIFF WBC (17204)Indication: Vitamin B12 deficiency (dietary) anemia On: :29 Request METABOLIC PANEL, COMPREHENSIVE (45939)Indication: Fluid retention On: :29 Request URINE LOW CULTURE (RUDDY COL COUNT) (63869)Indication: Hematuria On: 58-Ius-328521:11 Request URINE LOW CULTURE-RUDDY COL COUNT (67026)Indication: Hematuria On: :56 Request URINALYSIS, W/ MICRO (31214)Indication: Hematuria On: :54 Request Parathyroid Hormone-related Peptide (PTH-rP) (34656)Indication: Fatigue On: 15-Vkc-637977:17 Request VITAMIN B-12 (CYANOCOBALAMIN) (10274)Indication: Vitamin B12 deficiency (dietary) anemia On: 1-Gys-121197:03 Request METABOLIC PANEL, COMPREHENSIVE (58725)Indication: Abnormal glucose tolerance test On: 6-Hvo-403390:03 Request CBC WITH MANUAL DIFF (51880)Indication: Vitamin B12 deficiency (dietary) anemia On: 6-Mko-425035:02 Request Vitamin D Hydroxy (02429)Indication: Vitamin D deficiency, unspecified On: 6-Ocj-797704:02 Request LIPID PANEL (90861)Indication: Other hyperlipidemia On: :02 Request CREATININE BLOOD (07917)Indication: Other hyperlipidemia On: 3-Zno-934063:47 Request Vitamin D Hydroxy (57819)Indication: Vitamin D deficiency, unspecified On: :37 Request VITAMIN B-12 (CYANOCOBALAMIN) (56973)Indication: Vitamin B12 deficiency (dietary) anemia On: :37 Request METABOLIC PANEL, COMPREHENSIVE (41882)Indication: Osteopenia On: :28 Request TSH (42489)Indication: Osteopenia On: :28 Request CBC WITH MANUAL DIFF (84062)Indication: Vitamin B12 deficiency (dietary) anemia On: :27 Request VITAMIN B-12 (CYANOCOBALAMIN) (81579)Indication: Vitamin B12 deficiency (dietary) anemia On: : Request LIPID PANEL (39062)Indication: Other and unspecified hyperlipidemia On: : Request Vitamin D Hydroxy (32583)Indication: Vitamin D deficiency, unspecified On: : Request METABOLIC PANEL, COMPREHENSIVE (27137)Indication: Palpitations On: :32 Request CBC WITH MANUAL DIFF (78674)Indication: Vitamin B12 deficiency (dietary) anemia On: :31 Request Vitamin D Hydroxy (48721)Indication: Vitamin D deficiency, unspecified On: : Request LIPID PANEL (05240)Indication: Other hyperlipidemia On: : Request VITAMIN B-12 (CYANOCOBALAMIN) (80214)Indication: Vitamin B12 deficiency (dietary) anemia On: : Request URINE LOW CULTURE-IDENTIFICATN (07049)Indication: recurrent uti On: : Request Urinalysis, Office (13922)Indication: Cystitis, acute On: :57 Request VITAMIN B-12 (CYANOCOBALAMIN) (99196)Indication: Vitamin D deficiency, unspecified On: :30 Request CALCIFEDIOL (98429)Indication: Vitamin D deficiency, unspecified On: :30 Request URINALYSIS (75257)Indication: Vitamin D deficiency, unspecified On: :30 Request TSH (THYROID STIMULATING HORMONE) (87033)Indication: Vitamin D deficiency, unspecified On: :30 Request CBC, PLATELETS & AUT DIFF (42543)Indication: Vitamin D deficiency, unspecified On: :30 Request METABOLIC PANEL, COMPREHENSIVE (18871)Indication: Vitamin D deficiency, unspecified On: :30 Request LIPID PANEL (60817)Indication: Other hyperlipidemia On: :30 Request URINALYSIS W/O MICRO (07172)Indication: Low back pain On: :31 Request Creatine (01264)Indication: Low back pain On: 00-Neu-468015:13 Request BUN (Blood Urea Nitrogen) (91494)Indication: Low back pain On: 59-Ynj-771361:13 Request Creatine (90824)Indication: Low back pain On: 18-Mnu-959454:42 Request Creatine (83763)Indication: Unspecified Diagnosis On: 87-Xxh-058271:34 Request LIPID PANEL (02006)Indication: Other and unspecified hyperlipidemia On: 15-Huj-095451:22 Request HEPATIC FUNCTION PANEL (75826)Indication: Other and unspecified hyperlipidemia On: 51-Yjn-943955:22 Request Vitamin D Hydroxy (14967)Indication: Vitamin D deficiency, unspecified On: 82-Xmh-509499:11 Request VITAMIN B-12 (CYANOCOBALAMIN) (03763)Indication: methylmalonic acid elevatin On: 76-Cdv-279454:11 Request Methylmalonic acid, serum 15190Bpjnshszfi: Fatigue On: 37-Gds-228885:08 Request VITAMIN B-12 (CYANOCOBALAMIN) (67887)Indication: Fatigue On: 71-Cml-440864:08 Request TSH (49746)Indication: Palpitations On: 33-Apz-319431:06 Request METABOLIC PANEL, COMPREHENSIVE (41943)Indication: Palpitations On: 14-Pcv-683138:06 Request CBC WITH MANUAL DIFF (93828)Indication: Palpitations On: 61-Pne-796538:06 Request LIPID PANEL (80754)Indication: Other and unspecified hyperlipidemia On: 94-Bhx-884633:05 Request Vitamin D Hydroxy (48465)Indication: Osteopenia On: 20-Jgm-113311:05 Request Vitamin D Hydroxy (06370)Indication: Vitamin D deficiency, unspecified On: 0-Vmk-634895:10 Request METABOLIC PANEL, COMPREHENSIVE (36983)Indication: Other and unspecified hyperlipidemia On: :26 Request LIPID PANEL (59455)Indication: Other and unspecified hyperlipidemia On: :26 Request PARATHORMONE (28743)Indication: Osteopenia On: 40-Tbs-786906:15 Request Vitamin D Hydroxy (57490)Indication: Vitamin D deficiency, unspecified On: 36-Shx-484426:15 Request LIPID PANEL (93448)Indication: Other and unspecified hyperlipidemia On: 46-Rbt-244363:01 Request CALCIUM SERUM (89662)Indication: Osteopenia On: 87-Sxw-923807:00 Request TSH (04694)Indication: Osteopenia On: 08-Iec-690334:00 Request PARATHORMONE (48157)Indication: Osteopenia On: 35-Ern-415532:00 Request Vitamin D Hydroxy (70046)Indication: Osteopenia On: 01-Hau-970786:58 Request FECAL OCCULT HGB ASSAY- tubes sent home (32467)Indication: Well woman exam with routine gynecological exam On: 13-Hix-762899:39 Request OCCULT BLOOD FECES SCREEN- card done in office (63891)Indication: Well woman exam with routine gynecological exam On: :39 Request Thin prep Pap (99226)Indication: Well woman exam with routine gynecological exam On: 59-Eve-070925:39 Request Comments: vaginal cuff LIPID PANEL (55605)Indication: Other and unspecified hyperlipidemia On: 4-Jwy-747837:58 Request HEPATIC FUNCTION PANEL (81011)Indication: Other and unspecified hyperlipidemia On: 6-Bdj-271527:58 Request CALCIUM SERUM (38178)Indication: Osteopenia On: 4-Mrq-916372:58 Request PHOSPHORUS (89431)Indication: Osteopenia On: 4-Nok-968451:58 Request PARATHORMONE (75929)Indication: Osteopenia On: 1-Brj-264794:58 Request VITAMIN D, 1, 25-DIHYDROXY (90305)Indication: Osteopenia On: 7-Wgo-763567:58 Request URINE LOW CULTURE-RUDDY COL COUNT (35799)Indication: Dysuria On: 34-Awz-798130:35 Request Urinalysis, Office (97979)Indication: Dysuria On: 01-Suj-509751:35 Request VITAMIN D, 1, 25-DIHYDROXY (63289)Indication: Vitamin D deficiency, unspecified On: 0-Mrm-138371:01 Request URINE LOW CULTURE-IDENTIFICATN (99559)Indication: Dysuria On: 58-Git-995305:06 Request Celiac Disease Antibody Profile (13787) x3 & (36459) X2- gliadin IgA, IgG and reticulin IgA, IgG and tissue transglutaminase IgA.Indication: Abdominal pain, acute, generalized On: 12-Lzn-001682:38 Request MANDI (ANTINUCLEAR ANTIBODY) (17739)Indication: Fatigue On: :37 Request C-REACTIVE PROTEIN (26827)Indication: Fatigue On: :37 Request CBC (AUTO) (56684)Indication: Fatigue On: :37 Request Folate (95624)Indication: Fatigue On: :37 Request METABOLIC PANEL, COMPREHENSIVE (48058)Indication: Fatigue On: :37 Request RHEUMATOID FACTOR-QUANT (78562)Indication: Fatigue On: :37 Request SED RATE ERYTHROCYTE (88788)Indication: Fatigue On: :37 Request TSH (55233)Indication: Fatigue On: :37 Request VITAMIN B-12 (CYANOCOBALAMIN) (13858)Indication: Fatigue On: :37 Request Planned Encounters Medical; [facility] Pre Wellness Exam (DF Nurse) - On: 15-Aug-2018 8:00 [facility] NURSE, DF Medical; [facility] Wellness Exam (Doctor) - On: 29-Aug-2018 8:45 [facility] Fast DO, Audrey A Fast DO, Audrey A Planned Procedures XR HEEL LEFT (37025)By: Thanh CASTRO, On: 29-Apr-2018 Intent Audrey A Fast DO, Audrey A Flu Vaccine (Quadrivalent) 09168Mn: On: 29-Apr-2018 Intent Thanh CASTRO, Audrey A Fast DO, Audrey A Comments: Lot: #[id number]: 02/08/19Site: L dltd, IMDose prefilled syringegiven by: Jovon reviewed and ABN signed Spirometry (03616)By: Geovanna CASTRO, On: 16-Jan-2018 Intent Minoo Comments: #2-mild obstruction Radiology - Chest- PA and LatBy: On: 16-Jan-2018 Intent Minoo Austin DO Aerosol Treatment (72198)By: Geovanna On: 16-Jan-2018 Minoo Jackson DO Comments: much more a/e no wheeze jose uch better Solu- Medrol Injection, 125mg On: 16-Jan-2018 Intent (J2930)By: Minoo Austin DO Comments: solumedrol 125mg injectionlot: [id number]: GMpt tolerated wellAD 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 Spirometry (90439)By: Geovanna CASTRO, On: 16-Jan-2018 Intent Minoo Comments: mod severe obstruction #1 Breast Ultrasound - LeftBy: Thanh CASTRO, On: 09-Oct-2017 Intent Audrey Law DO, Audrey A MRI OF BRAIN WITH AND WITHOUT On: 10-Sep-2017 Intent CONTRAST (02525)By: Audrey Law DO, DO, Audrey A SCREENING DIGITAL TOMOSYNTHESIS OF On: 10-Sep-2017 Intent BREAST (93191)By: Audrey Law DO, DO, Audrey A ELECTROCARDIOGRAM, COMPLETE (ECG) On: 10-Sep-2017 Intent (70627)By: Audrey Law DO, DO, Comments: ekg showed normal sinus rhythym, normal axis, no acute st/t wave changes sinus hyun Audrey A Solu -Medrol Injection, 125 mg On: 08-Apr-2017 Intent (J2930)By: Audrey Law DO, DO, Audrey A Spirometry (81451)By: Thanh CASTRO, On: 21-Sep-2016 Intent Audrey Law DO Audrey A Comments: good effort and curve mod obstruction Aerosol Treatment (05034)By: Thanh On: 20-Aug-2016 Gurdeep Jackson DOa Sue Law DO, Audrey A Comments: with albuterol Phenergan Injection, up to 50 mg On: 20-Aug-2016 Intent (J2550)By: Audrey Law DO, DO, Comments: lot:[id number]: 03/28site/route: LGM/IMamt: 25mgVIS signed when applicableBITA Akbar A Radiology - Chest- PA and LatBy: On: 24-Jul-2016 Intent Audrey Law DO DO, Audrey A DEXA SCAN AXIAL SKELETON (37413)By: On: 08-May-2016 Intent Thanh CASTRO Audrey A Fast DO, Audrey A Comments: end jul MAMMOGRAM, SCREENING, BOTH BREAST On: 08-May-2016 Intent (31925)By: Audrey Law DO, DO, Audrey A Flu Vaccine (Quadrivalent) 02611Vq: On: 08-May-2016 Intent Fast DO, Audrey A Fast DO, Audrey A Comments: Lot #:[id number] date:02/08/17mount given:0.5mlRoute: IMSite given: left deltoidGiven by: NEGRITA Gavin ADMINISTRATION OF INFLUENZA VIRUS On: 08-May-2016 Intent VACCINE (G0008)By: Fast DO, Audrey A Fast DO, Audrey A PFT - CompleteBy: Fast DO, Audrey A On: 17-Apr-2016 Intent Fast DO, Audrey A MRI - Brain (IV Contrast Needed)By: On: 31-Oct-2015 Intent Fast DO, Audrey A Fast DO, Audrey A MRI - BrainBy: Fast DO, Audrey A Fast On: 05-Oct-2015 Intent DO, Audrey A Solu -Medrol Injection, 125 mg On: 18-Aug-2015 Intent (J2930)By: Michelle Tyson MD Radiology - ChestBy: Marbella METZ, On: 18-Aug-2015 Intent Michelle Gerber Flu Vaccine (Quadrivalent) 07689Eo: On: 27-May-2015 Intent Fast DO, Audrey A Fast DO, Audrey A Comments: lot [id number]: 02/09/2016site/route L agnieszka, IMamt 0.5mlVIS and ABN signed when applicableChelsea, CMAFM4 ADMINISTRATION OF INFLUENZA VIRUS On: 27-May-2015 Intent VACCINE (G0008)By: Gurdeep Law DOa A Fast DO, Audrey A 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 On: 23-Nov-2014 Intent (24281)By: Ashley Gan CNP COMP EYE EXAMINATION, ESTAB PATIENT On: 18-Oct-2014 Intent (83925)By: Ashley Gan CNP MAMMOGRAM, SCREENING, BOTH BREAST On: 10-Sep-2014 Intent (23638)By: Audrey Law DO Fast DO, Audrey A Radiology - ChestBy: Marbella METZ, On: 29-Jul-2014 Intent Michelle Gerber ELECTROCARDIOGRAM, COMPLETE (ECG) On: 29-Jul-2014 Intent (73926)By: Michelle Tyson MD Comments: see scanned document of test done to see results reviewed today with patient Prevnar 13 (51443)By: Fast DO, On: 21-Jun-2014 Intent Audrey A Fast DO, Audrey A Comments: Lot #:[id number] date:10/2015Amount given:0.5mlRoute: IMSite given: left deltoidGiven by: NEGRITA Gavin DEXA SCAN AXIAL SKELETON (87750)By: On: 21-Jun-2014 Intent Fast DO, Audrey A Fast DO, Audrey A IMMUNIZ ADMNIN, 1 VAC, SNGL/COMBO On: 09-Jun-2014 Intent (48638)By: Fast DO, Audrey A Fast DO, Comments: lot:[id number]:02/08/2015dose:0.5mLRoute: IMlocation: L armgiven by: josselyn velázquez Audrey A FLU VAC, SPLIT, >3 YEARS, INTRAMUSC On: 09-Jun-2014 Intent (37870)By: Christine Palma MRI - BrainBy: Fast DO, Audrey A Fast On: 23-Mar-2014 Intent DO, Audrey A Radiology - Cervical SpineBy: Fast On: 29-Dec-2013 Intent DO, Audrey A Fast DO, Audrey A CT - ChestBy: Fast DO, Audrey A Fast On: 29-Dec-2013 Intent DO, Audrey A Eprescribed prescriptions (G8553)By: On: 07-Sep-2013 Intent Juliana Shook MAMMOGRAM, SCREENING, BOTH BREASTS On: 20-Aug-2013 Intent (44640)By: Fast DO, Audrey A Fast DO, Audrey A Eprescribed prescriptions (G8553)By: On: 20-Aug-2013 Intent Juliana Shook PNEUM VAC ADLT/IMUMNOSPR, SBC/INTRM On: 25-May-2013 Intent ([id number])By: Fast DO, Audrey A Fast DO, Comments: Lot #[id number]-L arm, dltd, IMDose-prefilled syringegiven by:STARR Renteria signed Audrey A Pap Smear, Medicare ([id number])By: On: 25-May-2013 Intent Juliana Shook Pelvic and Breast, Medicare On: 25-May-2013 Intent (G0101)By: Juliana Shook ADMINISTRATION OF INFLUENZA VIRUS On: 14-May-2013 Intent VACCINE ([id number])By: Gevoanna CASTRO, Comments: Lot #[id number]-L dltd, IMDose prefilled syringegiven by:STARR Renteria and ABN signed Minoo FLU VAC, SPLIT, >3 YEARS, INTRAMUSC On: 14-May-2013 Intent ([id number])By: Minoo [place] DO Eprescribed prescriptions (G8553)By: On: 06-Mar-2013 Intent Juliana Shook B 12 Injection, 1000 mcg (J3420)By: On: 06-Mar-2013 Intent Juliana Shook 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 On: 20-Feb-2013 Intent ([id number])By: Virginie Ambriz LPN MRI - BrainBy: Fast [...] THER/PROPH/DIAG IV INF, INIT On: 22-Aug-2012 Intent ([id number])By: Ashley Gan CNP INFUSION, NORMAL SALINE SOLUTION , On: 22-Aug-2012 Intent 250 CC ([id number])By: Ashley Gan CNP Rocephon Injection, 1 Gm ([id number])By: On: 22-Aug-2012 Intent Ashley Gan CNP 12 Injection, 1000 mcg ([id number])By: On: 01-Jul-2012 Intent Fast DO, Audrey A Fast DO, Audrey A Comments: Lot:[id number]:Dose:1MLRoute:IMSite:L armGiven By:DEBRA Eprescribed prescriptions ([id number])By: On: 01-Jul-2012 Intent Juliana Shook FLU VAC, SPLIT, >3 YEARS, INTRAMUSC On: 27-May-2012 Intent ([id number])By: Juliana Shook Comments: Lot:[id number]:prefilledRoute:IMSite:L DltdGiven By:AUDREY signed MAMMOGRAM, SCREENING, BOTH BREASTS On: 27-May-2012 Intent ([id number])By: Audrey Law DO, DO, Comments: mid jul Audrey A ADMINISTRATION OF INFLUENZA VIRUS On: 27-May-2012 Intent VACCINE ([id number])By: Juliana Shook Toradol Injection, 30 mg ([id number])By: On: 09-Jan-2012 Intent CiesAshley rogers CNP Comments: 1 ml given im lt hip lot [id number] exp 08/25 Radiology - Lumbar SpineBy: Ciesa On: 09-Jan-2012 Intent Ashley RAMIREZ DXA, BONE DENSITY, AXIAL SKELETON On: 18-Dec-2011 Intent ([id number])By: Audrey Law DO, DO, Comments: due in january Audrey A TDAP VACCINE >7 IM ([id number])By: On: 18-Dec-2011 Intent Juliana Shook Comments: received at work 11/2011 MAMMOGRAM, SCREENING, BOTH BREASTS On: 03-Jul-2011 Intent ([id number])By: Gurdeep Law DOa Sue Fast DO, Audrey A CT - Abdomen & Pelvis Stone On: 03-Jul-2011 Intent ProtocolBy: Thanh CASTRO, Audrey A Fast DO, Audrey A FLU VAC, SPLIT, >3 YEARS, INTRAMUSC On: 03-Jul-2011 Intent ([id number])By: Juliana Shook Comments: received at work 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 On: 11-May-2011 Intent ([id number])By: Virginie Ambriz LPN MRI - Thoracic Spine (IV Contrast On: 17-May-2010 Intent Needed)By: Juliana Shook MAMMOGRAM, SCREENING, BOTH BREASTS On: 17-May-2010 Intent ([id number])By: Gurdeep Law DOa Sue Law DO, Comments: dec Audrey A Radiology - Lumbar SpineBy: Ciesa On: 10-May-2010 Intent Ashley RAMIREZ THER/PROPH/DIAG INJ, SC/IM On: 10-May-2010 Intent ([id number])By: Ashley Gan CNP INJECTION, VITAMIN B-12 On: [...] BONE DENSITY, AXIAL SKELETON On: 09-Nov-2009 Intent ([id number])By: Fast DO, Audrey A Fast DO, Audrey A MAMMOGRAM, SCREENING, BOTH BREASTS On: 19-May-2009 Intent ([id number])By: Fast DO, Audrey A Fast DO, Audrey A Daoluzxdz-Phd-Mzngp ([id number])By: Thanh On: 07-Sep-2008 Intent DO, Audrey A Fast DO, Audrey A Radiology - ChestBy: Fast DO, Audrey On: 07-Sep-2008 Intent A Fast DO, Audrey A Comments: pa and lat Pulse Oximetry ([id number])By: Malik RAMIREZ, On: 27-Jul-2008 Intent Adelaida Aerosol Treatment ([id number])By: Malik On: 27-Jul-2008 Intent Ashley RAMIREZ PHYSICAL THERAPY EVALUATION On: 29-Jun-2008 Intent ([id number])By: Ashley Gan CNP Pulse Oximetry ([id number])By: Malik RAMIREZ, On: 14-Jan-2008 Intent Adelaida Aerosol Treatment ([id number])By: Malik On: 14-Jan-2008 Intent Ashley RAMIREZ MAMMOGRAM, SCREENING, BOTH BREASTS On: 17-Dec-2007 Intent ([id number])By: Thanh DO Audrey A Fast DO, Audrey A MRI - Lumbar SpineBy: Fast DO, Audrey On: 17-Dec-2007 Intent A Fast DO, Audrey A Comments: hx of recent multiple trauma-osteoporosis-- ddd and significant pain DXA, BONE DENSITY, AXIAL SKELETON On: 17-Dec-2007 Intent ([id number])By: Fast DO, Audrey A Fast DO, Audrey A EKG ([id number])By: Juliana Shook On: 17-Dec-2007 Intent Comments: ekg showed normal sinus rhythym, normal axis, no acute st/t wave changes with pacs Spirometry ([id number])By: Thanh CASTRO, On: 04-Sep-2007 Intent Audrey A Fast DO, Audrey A Comments: good effort and curve - mild obstruction Radiology - ChestBy: IRA RAMIREZ, On: 22-Jul-2006 Intent KRISHAN Ear Irrigation ([id number])By: IRA On: 22-Jul-2006 Intent KRISHAN RAMIREZ Planned Medications INFUSION, NORMAL SALINE SOLUTION , 250 CC Ordered: 22-Aug-2012 Pending Ciesa ROLL CHANGER, Adelaida INJECTION, CEFTRIAXONE SODIUM, PER 250 MG Ordered: 22-Aug-2012 Pending Ciesa ROLL CHANGER, Adelaida INJECTION, KETOROLAC TROMETHAMINE, PER 15 MG Ordered: 09-Jan-2012 Pending Ciesa ROLL CHANGER, Adelaida INJECTION, METHYLPREDNISOLONE SODIUM SUCCINATE, UP TO [...] unspecified hyperlipidemia : DISCONTINUED - LIPID PANEL ([id number]) Indication: Other and unspecified hyperlipidemia Moderate persistent [...] few days- feeling worse again- was in [place] 3 weeks ago maybe this caused- no [...] - had walked that morning at the [facility]- she not walk barefoot has [...] are no current emotional problems. screening, colonoscopy ([facility] Dr. Galeana). Note for Physical exam: feels really good- walking 2 miles every morning at the [facility] 5 days a week-- and doing [...] Skin lesions: itchhas poison [facility]: Poison a[facility] [...] are no current emotional problems. screening, colonoscopy ([facility] Dr. Galeana). Note for Physica l exam: she is up 5 pounds has started weight lifting 3 times a week at the house of [employer]- her bp is good- the symbicort was [...] stone- on cipro right now- leaving for [place] next ), has decreased energy level and [...] surgery tomorrow with Dr. Jalil Machado at [facility].- had left stone and stent in uterer [...] The patient does have durable power of privacy attorney and living will. The patient has noticed nothing from the geriatic depression scale. Other providers contributing to the patient's care are lacrosse player and other: (opthmologist and neurologist). Note for [...] (post-aide). Encounter Diagnosis: Annual physical exam (V70.0), [facility] Exam , Medicare (V76.2) (Renamed [...] has noticed off and on since t - no fever - rdness all gone- [...] are on paper- had them done at [facility]. Pt is currently on Macrobid [...] k and told her 10 years and slibia has to see seven- if she watches [...] vitamins and low salt diet. The med ica issues the patient is following up for [...] Hands also feel stiff with bread. [facility], Dr. Biggs and Thanh have done work up and all is [...]
--- OUTSIDE RECORDS SUMMARY | 2018-10-29 17:00 | XMS RPT_ITS | Continuity of Care Document ---
:1945 Author Organization [facility] Address [facility] [facility] [address] [place] [address] Phone Care Team Providers Name Role Phone [...] Oral Tablet 3 (three) Tablet x3days, 2 mgbhh3pgrs, 1 amyo3jpzb for 0 days Quantity: 18 {Tablet} Refills: [...] Quantity: 28 {Tablet} Refills: 2 Ordered:11-May-2011 Virginie Ambrzi LPN Start : 17-May-2010 End : 11-May-2011 Inactive CULTURELLE, 10B CELL (Oral Capsule) 1 Capsule bid for 0 days Quantity: 30 {Capsule} Refills: 0 Ordered:20-Feb-2013 Virginie Ambriz LPN Start : 15-Sep-2012 End : 20-Feb-2013 Inactive CYANOCOBALAMIN, 1000MCG/ML (Injection Solution) 1 ml sq Solution once monthly for 90 days Quantity: 1 {Solution} Refills: 3 Ordered:29-Jul-2014 CTAHY Sagastume Start : 03-Jul-2011 End : 29-Jul-2014 [...] End : 29-Jul-2014 Inactive Comments:use sparingly ERGOCALCIFEROL, 11993GKPM (Oral Capsule) 1 (one) Capsule q week [...] End : 16-Aug-2006 Inactive OSCAL 500/200 D-3, 046-816VG-PORZ (Oral Tablet) 1 QD for 0 days Refills: 0 Ordered:27-Jul-2008 Luana Granado End : 16-Aug-2006 Inactive AICYM-NE-CQQH MAXIMUM STRENGTH, 400-500MG (PO Tab) 1 QD [...] : 21-Sep-2013 End : 15-Feb-2014 Discontinued CALCIUM, 443-883UW-UBPM (Oral Tablet) 1 Daily for 0 days Refills: 0 Ordered:15-Feb-2014 Juliana Shook End : 15-Feb-2014 Discontinued CALTRATE 600+D PLUS, 764-635LE-GRIN (Oral Tablet) 1 1/2 tab qd (600-400 [...] : 23-Nov-2014 End : 13-Dec-2014 Discontinued DRISDOL, 66626DOPW (Oral Capsule) 1 Capsule Weekly for 90 [...] : 18-Apr-2010 Discontinued Comments:This order discontinued per [facility]. PredniSONE 10 MG Oral Tablet 3 [...] MG) End : 29-Dec-2013 Discontinued VITAMIN D, 53736IBTV (Oral Capsule) 1 (one) Capsule twice a week for 0 days Quantity: 24 {Capsule} Refills: 1 Ordered:18-Apr-2010 Mast Esther MONTANO Start : 07-Feb-2010 End : 18-Apr-2010 Discontinued Comments:This order discontinued per [facility]. 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 Past Medical History Name Dates Details [...] 2 Views Result: Comments: See Note; NOTES: [facility] Imaging Services [address] [place] [address] Calcaneus min 2 Views MR#: [id number] Acct: [id number] Name: JS MEEKS Rep #: [id number] : 1945 F 72 From: Malachi Qureshi MD PCP: Audrey Law DO Status: REG CLI Study: Calcaneus min 2 Views Date of Exam: 04/29/18 Exam# [id number] Ordering Dr: Audrey Law DO STUDY: X-RAY [...] Service support , CC: Audrey Law DO Safety Physician: Signed 19-Nov-2017 Cardiology Visit Report Result: Comments: See Note; NOTES: [facility] [address] [place] [address]. 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 [place] [address] Fax REHABILITATION SERVICES DISCHAR GE SUMMARY MR#: [id number] Acct: [id number] Name: JS MEEKS Rep #: [id number] : 1945 72 From: Vesna Albert PT, Cert. MDT Referring Dr.: Quirino Bueno MD Status: REG [facility] Insurance: [facility] SEL[employer] PAY INSURANCE HP - PT D/C Summary It has been my pleasure to treat JS MEEKS under orders from Quriino Bueno, , for the diagnosis of L [...] - PT Result: Comments: See Note; NOTES: [facility] [address] [place] [address]. [address] [place], [place] [address] Fax REHABILITATION SERVICES INITIAL EVALUATION MR#: [id number] Acct: [id number] Name: JS MEEKS Rep #: [id number] : 1945 72 From: Vesna Albert PT, Cert. MDT Referring DrYuni: Quirino Bueno MD Status: REG [facility] Insurance: [facility] SEL[employer] PAY INSURANCE Patient's Visit Information JS [...] ROM. 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. - Subjective Subjective: Work/Leisure: RETIRED. HAS [...] AND USING WEIGHT MACHINES AT [facility] LAST MAY AND THE ONLY THING SHE [...] normal. RECENT X-RAY OF LEFT SHOULDER AT [facility] - PATIENT UNSURE OF RESULTS. NO MRI [...] LUE SLOW AND CAREFULLY. 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 RIGHT UE STRENGTH WFL. [...] to be FAXED BACK to us at [phone] for Medicare purposes. Please let me know [...] Limited Unilateral Result: Comments: See Note; NOTES: [facility] Imaging Services [address] [place] [address] Breast Limited Unilateral MR#: [id number] Acct: [id number] Name: JS MEEKS Rep #: [id number] : 1945 F 71 From: Corey Saldaña MD PCP: Audrey Law DO Status: REG CLI Study: Breast Limited Unilateral Date of Exam: 10/10/17 Exam# [id number] Ordering Dr: Audrey Law DO STUDY: UL [...] Corey Saldaña MD at 13:47 EST Tel [phone], Service support , CC: Audrey Law DO Safety Physician: Signed 10-Oct-2017 Breast Limited Unilateral Result: Comments: See Note; NOTES: [facility] Imaging Services [address] [place] [address] Breast Limited Unilateral MR#: [id number] Acct: [id number] Name: JS MEEKS Rep #: [id number] : 1945 F 71 From: Corey Saldaña MD PCP: Audrey Law DO Status: REG CLI Study: Breast Limited Unilateral Date of Exam: 10/10/17 Exam# [id number] Ordering Dr: Audrey Law DO STUDY: UL [...] Corey Saldaña MD at 13:47 EST Tel [phone], Service support , CC: Audrey Law DO Safety Physician: Signed 07-Oct-2017 SCREENING MAMM (CAD), BILAT Result: Comments: See Note; NOTES: [facility] Imaging Services [address] [place] [address] SCREENING MAMM (CAD), BILAT MR#: [id number] Acct: [id number] Name: JS MEEKS Rep #: [id number] : 1945 F 71 From: Corey Saldaña MD PCP: Audrey Law DO Status: REG CLI Study: SCREENING MAMM (CAD), BILAT Date of Exam: 10/07/17 Exam# [id number] Ordering Dr: Audrey Law DO MAMMO GRAPHY [...] delay biopsy of a clinically suspicious abnormality. [id number] Electronically Signed: Corey Saldaña MD at 10:32 EST Tel [phone], Service support , CC: Audrey Law DO Safety Physician: Signed 07-Oct-2017 SCREENING MAMM (CAD), BILAT Result: Comments: See Note; NOTES: [facility] Imaging Services [address] [place] [address] SCREENING MAMM (CAD), BILAT MR#: [id number] Acct: [id number] Name: JS MEEKS Rep #: : 1945 F 71 From: Corey Saldaña MD PCP: Audrey Law DO Status: REG CLI Study: SCREENING MAMM (CAD), BILAT Date of Exam: 10/07/17 Exam# [id number] Ordering Dr: Audrey Law DO ADDEN DUM by Corey Saldaña MD on 10/09/17 at 0957 HPBI/SCREENING MAMM (CAD), BILAT 10/09/17 1004 Date cc: Audrey Fast DO * Signed ADDENDUM by Corey Saldaña MD on 10/09/17 at 0957 ADDENDUM This is an addendum report for BIRADS category. BIRADS Category 0: Addit ional imaging required. Electronically Signed: Corey Saldaña MD at 9:57 EST Tel [phone], Service support , 10/09/17 0957 Date cc: [...] delay biopsy of a clinically suspicious abnormality. [id number] Electronically Signed: Corey Saldaña MD at 10:32 EST Tel [phone], Service support , CC: Audrey Law DO Safety Physician: Signed 23-Sep-2017 TXT - Blood Flow Screening Result: Comments: See Note; NOTES: [facility] Cardiovascular Services [address] [place] [address] 09/23/17 0822 MR#: [id number] Acct: [id number] Name: JS MEEKS Rep #: [id number] : 1945 71 From: Jeet Grijalva MD Attending Dr: Audrey Law DO Status: REG REF Ordering Dr: Date: 09/23/17 Location: [facility] Sex: F C Admitted: Reason For [...] DO Date Dictated: 09/23/17821 Date Transcribed: 09/23/172213 Safety Physician: Signed 16-Sep-2017 Brain W/WO Contrast Result: Comments: See Note; NOTES: [facility] Imaging Services [address] [place] [address] Brain W/WO Contrast MR#: [id number] Acct: [id number] Name: JS MEEKS Rep #: [id number] : 1945 F 71 From: Gabriela hRodes PCP: Audrey Law DO Status: REG CLI Study: Brain W/WO Contrast Date of Exam: 09/16/17 Exam# [id number] Ordering Dr: Audrey Law DO STUDY: MRI [...] Service support , CC: Audrey Law DO Safety Physician: Signed 07-Aug-2016 Bilat Scrn Digital AND CAD Result: Comments: See Note; NOTES: [facility] Imaging Services [address] [place] [address] Verdana 4d Bilat Scrn Digital AND CAD MR#: [id number] Acct: [id number] Name: JS MEEKS Rep #: [id number] : 1945 F 70 From: Corey Saldaña MD PCP: Audrey Law DO Status: REG CLI Study: Bilat Scrn Digital AND CAD Date of Exam: 08/07/16 Exam# [id number] Ordering Dr: Audrey Law MAMMOGRAPHY - BILATERAL [...] delay biopsy of a clinically suspicious abnormality. [id number] Electronically Signed: Corey Saldaña MD at 12:30 EST , Service support [phone], CC: Audrey Law DO Safety Physician: Signed 07-Aug-2016 Chest PA and Lateral Result: Comments: See Note; NOTES: [facility] Imaging Services [address] [place] [address] Verdana 4d Chest PA and Lateral MR#: [id number] Acct: [id number] Name: JS MEEKS Rep # : [id number] : 1945 From: Corey Saldaña MD PCP: Audrey Law DO Status: REG CLI Study: Chest PA and Lateral Date of Exam: 08/07/16 Exam# [id number] Ordering Dr: Audrey Law DO STUDY: X [...] Corey Saldaña MD at 10:53 EST Tel [phone], Service support , CC: Audrey Law DO Safety Physician: Signed 07-Aug-2016 DXA BONE DENS W/VERT FX ASMT Result: Comments: See Note; NOTES: [facility] Imaging Services [address] [place] [address] Verdana 4d DXA BONE DENS W/VERT FX ASMT MR#: [id number] Acct: [id number] Name: JS MEEKS Rep #: [id number] : 1945 F 70 From: Corey Saldaña MD PCP: Audrey Law DO Status: REG CLI Study: DXA BONE DENS W/VERT FX ASMT Date of Exam: 08/07/16 Exam# [id number] Ordering Dr: Jayna Law ra, DO STUDY: [...] Corey Saldaña MD at 13:51 EST Tel [phone], Service support [phone], CC: Audrey Law DO; GEE BELCHER Safety Physician: Signed 13-Jul-2016 Stress Test Echo w/o Contrast Result: Comments: See Note; NOTES: [facility] Cardiovascular Services [address] [place] [address] Verda 4d Stress Test Echo w/o Contrast MR#: [id number] Acct: [id number] Name: JS ETIENNE Rep #: [id number] : 1945 70 From: Mark Leger MD [...] Date Dictated: 6 36 Date Transcribed: 07/13/161434 Safety Physician: Signed 02-May-2016 Pulmonary Function Report Comp Result: Comments: See Note; NOTES: [facility] Pulmonary Services/Neurology [address] [place] [address] Pulmonary Function Test (Comp) MR#: [id number] Acct: [id number] Name: RENITA MEEKS Rep #: [id number] : 1945 70 From: Markus Fuentes MD Referring Dr: Audrey Law DO Status: REG CLI Ordering Dr: Audrey Law DO Date: 05/01/16 Location: [facility] Sex: F C DATE OF SERVICE: [...] C: Audrey Law DO T: NTS JOB: [id number] 05/02/16 0622 <Electronically signed by Markus Fuentes MD> Date Markus Fuentes MD CC: Markus Fuentes MD; Audrey Law DO Date Dictated: 05/01/1656 Date Transcribed: 05/01/16955 Safety Physician: Signed 04-Nov-2015 Brain W/WO Contrast Result: Comments: See Note; NOTES: [facility] Imaging Services [address] [place] [address] Nhungdana 4d Brain W/WO Contrast MR#: [id number] Acct: [id number] Name: ARIEL MEEKS Rep #: [id number] : 1945 F 70 From: Niki Cantu MD PCP: Audrey Law DO Status: REG CLI Study: Brain W/WO Contrast Date of Exam: 11/04/15 Exam# [id number] Ordering Dr: Audrey Law DO STUDY: MRI [...] MD at 12:52 EDT , Service support [phone] , CC: Audrey Law DO Safety Physician: Signed 05-Oct-2015 Spirometry (76485) Comments: good effort curve small- Result: 05-Oct-2015 ELECTROCARDIOGRAM, COMPLETE (ECG) (59265) Result: [MEASUREMENTS ANALYSIS] Date of Test: 10/05/2015 09:16:25; Heart Rate: 67; CO Interval: 184; QRS: 92; QT Interval: 388; Corrected QT Interval (QTc): 400; P Wave Frederick: 44; QRS Wave Frederick: 15; T Wave Frederick: 48; Blood Pressure: 122/74 [ECG DIAGNOSTIC STATEMENTS] Date of Test: 10/05/2015 09:16:25; Summary: Sinus Rhythm WITHIN NORMAL LIMITS 18-Aug-2015 Chest PA and Lateral Result: Comments: See Note; NOTES: [facility] Imaging Services [address] [place] [address] Verdana 4d Chest PA and Lateral MR#: [id number] Acct: [id number] Name: Fiona MEEKS Rep #: [id number] : 1945 F 69 From: Willie Andersen PCP: Audrey Law DO Status: REG CLI Study: Chest PA and Lateral Date of Exam: 08/18/15 Exam# [id number] Ordering Dr: Rey Tyson MD STUDY: X-RAY [...] at 6:26 EST , Service sup port [phone], RAD/Chest PA and Lateral IMPRESSION: There is NO acute cardiopulmonary abnormality. Electronically Signed: Willie Andersen MD at 6:26 EST , Service support [phone], CC: Michelle Tyson MD; Audrey Lwa DO Safety Physician: Signed 02-Dec-2014 Spirometry (44070) Comments: obstruction present Result: 27-Oct-2014 Bilat Scrn Digital AND CAD Result: Comments: See Note; NOTES: [facility] Imaging Services [address] [place] [address] Breast Imaging Report MR#: [id number] Acct: [id number] Name: JS MEEKS Rep #: [id number] : 1945 F 69 From: Sonu Olmstead MD PCP: Audrey Law DO Status: REG CLI Study: Bilat Scrn Digital AND CAD Date of Exam: 10/27/14 Exam# [id number] Ordering Dr: Audrey Law DO MAMMOGR APHY [...] at 11:33 EDT Tel , Service support [phone], CC: Audrey Law DO Safety Physician: Signed 27-Oct-2014 Bilat Scrn Digital AND CAD Result: Comments: See Note; NOTES: [facility] Imaging Services [address] [place] [address] Breast Imaging Report MR#: [id number] Acct: [id number] Name: JS MEEKS Rep #: [id number] : 1945 F 69 From: Sonu Olmstead MD PCP: Audrey Law DO Status: REG CLI Study: Bilat Scrn Digital AND CAD Date of Exam: 10/27/14 Exam# [id number] Ordering Dr: Audrey Law by Corey Saldaña MD on 11/01/14 at 1353 ADDENDUM This is an addendum report. Prior out side examination was made available for review. Comparison is made with prior examination dated November 06, 2013. There is essentially no change since prior study. Electronically Signed: Corey akbar MD at 13:53 EDT Tel [phone], Service support [phone], 11/01/14 1353 Date cc: Audrey Fast DO [...] at 11:33 EDT Tel , Service support [phone], CC: Audrey Law DO Safety Physician: Signed 03-Aug-2014 Vert Fx Asess/Lat Bone Den(H) Result: Comments: See Note; NOTES: [facility] Imaging Services [address] [place] [address] Bone Density Report MR#: [id number] Acct: [id number] Name: JS MEEKS Rep #: [id number] : 1945 F 68 From: Corey Saldaña MD PCP: Audrey Law DO Status: REG CLI Study: Vert Fx Asess/Lat Bone Den(H) Date of Exam: 08/03/14 Exam# [id number] Ordering Dr: Audrey Law DO STUDY: DUAL [...] Corey Saldaña MD at 13:11 EST Tel [phone], Service support [phone], CC: Audrey Law DO Safety Physician: Signed 03-Aug-2014 Dexa Bone Density Study (HP) Result: Comments: See Note; NOTES: [facility] Imaging Services [address] [place] [address] Bone Density Report MR#: [id number] Acct: [id number] Name: JS MEEKS Rep #: [id number] : 1945 F 68 From: Corey Saldaña MD PCP: Audrey Law DO Status: REG CLI Study: Dexa Bone Density Study (HP) Date of Exam: 08/03/14 Exam# [id number] Ordering Dr: Audrey Law DO STUDY: DUAL [...] Tio Saldaña MD at 14:42 EST Tel [phone], Service support [phone], CC: Audrey Law DO Safety Physician: Signed 29-Jul-2014 Chest PA and Lateral Result: Comments: See Note; NOTES: [facility] Imaging Services [address] [address] Radiology Report MR#: [id number] Acct: [id number] Name: JS MEEKS Rep #: [id number] : 1945 F 68 From: Brad Lea MD PCP: Audrey Law DO Status: REG CLI Study: Chest PA and Lateral Date of Exam: 07/29/14 Exam# [id number] Ordering Dr: Michelle Tyson MD STUDY: X-RA [...] MD at 7:26 EST , Service support [phone], CC: Michelle Tyson MD; Audrey Law DO Safety Physician: Signed 29-Jul-2014 Spirometry (75662) Comments: see scanned document of test done to see results reviewed today with patient Result: 26-Mar-2014 Brain W/WO Contrast Result: Comments: See Note; NOTES: [facility] Imaging Services [address] [place] [address] MRI Report MR#: [id number] Acct: [id number] Name: JS MEEKS Rep #: [id number] DO B: 1945 F 68 From: Joshua Salcido MD PCP: Audrey Law DO Status: REG CLI Study: Brain W/WO Contrast Date of Exam: 03/26/14 Exam# [id number] Ordering Dr: Audrey Law DO STUDY: MRI [...] MD at 15:20 EDT , Service support [phone], CC: Audrey Law DO Safety Physician: Signed 19-Jan-2014 Chest WITH Contrast Result: Comments: See Note; NOTES: [facility] Imaging Services [address] [place] [address] CAT Scan Report MR#: [id number] Acct: [id number] Name: JS MEEKS Rep #: [id number] : 1945 F 68 From: Corey Saldaña MD PCP: Audrey Law DO Status: REG CLI Study: Chest WITH Contrast Date of Exam: 01/19/14 Exam# [id number] Ordering Dr: Audrey Law DO STUDY: CT [...] Corey Saldaña MD at 10:20 EDT Tel [phone], Service support , CC: Audrey Law DO Safety Physician: Signed 29-Dec-2013 Cerv Spine 4 or 5 Views Result: Comments: See Note; NOTES: [facility] Imaging Services [address] [place] [address] Radiology Report MR#: [id number] Acct: [id number] Name: JS MEEKS Rep #: [id number] : 1945 F 68 From: Cristino Salas MD PCP: Audrey Law DO Status: REG CLI Study: Cerv Spine 4 or 5 Views Date of Exam: 12/29/13 Exam# [id number] Ordering Dr: Audrey Law DO STUDY: X-RA [...] at 3:02 EDT Tel , Service support [phone], CC: Audrey Law DO Safety Physician: Signed 22-Dec-2013 Abdomen Single View Result: Comments: See Note; NOTES: [facility] Imaging Services [facility] [place] [address] Radiology Report MR#: [id number] Acct: [id number] Name: JS EMEKS Rep #: [id number] : 1945 F 68 From: Willie Andersen PCP: Audrey Law DO Status: REG CLI Study: Abdomen Single View Date of Exam: 12/22/13 Exam# [id number] Ordering Dr: Justo Bowles MD STUDY: X-RAY [...] at 2:50 EDT Tel , Service support [phone], CC: Audrey Law DO; Justo Bowles MD Safety Physician: Signed 19-Dec-2013 Operative Report Result: Comments: See Note; NOTES: [facility] Medical Records Department [address] [place] [address] Operative Report MR#: [id number] Acct: [id number] Name: JS MEEKS Rep #: [id number] : 1945 68 From: Justo Bowles MD PCP: Audrey Law DO Status: [facility] DATE OF SERVICE: 12/18/2013 DATE OF SERVICE: December 18, 2013. PREOPERATIVE DIAGNOSIS: Left ureteral ca lculi, status post stent placement. POSTOPERATIVE DIAGNOSIS: Left ureteral calculi, status post stent placement. PROCEDURES PERFORMED: Left ureteroscopy, laser lithotripsy of stone and left stent placement. ANESTHESIOLOGIST: Dr. Leiva. SURGEON: Justo Bowles M.D. SPECIMEN REMOVED: None. DRAINS: A 6-Iraqi x 24 cm stent on the left [...] we nt into the bladder with a 21-Iraqi rigid cystourethroscope, grabbed the existing stent from [...] Bowles MD T: [facility] JOB: [id number] 12/19/13 0743 <Electronically signed by Justo Bowles MD> Date Justo Bowles MD CC: Audrey Law DO; Justo Bowles MD Date Dictated: 12/18/13 1430 Date Transcribed: 12/18/13 143 Safety Physician: Signed 18-Dec-2013 Operative Report Result: Comments: See Note; NOTES: [facility] Medical Records Department [address] [place] [address] Operative Report 12/18/13 1428 MR#: [id number] Acct: [id number] Name: JS MEEKS Rep #: [id number] : 1945 68 From: Justo Bowles MD PCP: Audrey Law DO Status: REG SDC Y Location: [place] [address] Report of Operation Date of Procedure: 12/18/13 [...] Discharge Instruction Result: Comments: See Note; NOTES: [facility] Medical Records Department [address] [place] [address] Discharge Instruction 12/18/13 1343 MR#: [id number] Acct: [id number] Name: JS MEEKS Rep #: [id number] : 1945 68 From: Justo Bowles MD PCP: Audrey Law DO Status: REG [facility] Discharge Diet: No Restrictions Discharge Activity: [...] without Cont Result: Comments: See Note; NOTES: [facility] Imaging Services [address] [place] [address] CAT Scan Report MR#: [id number] Acct: [id number] Name: JS MEEKS Rep #: [id number] : 1945 F 68 From: Corey Saldaña MD PCP: Audrey Law DO Status: REG CLI Study: Abdomen/Pelvis without Cont Date of Exam: 12/04/13 Exam# [id number] Ordering Dr: Brett Mata MD: CT ABDOMEN [...] Corey Saldaña MD at 11:50 EDT Tel [phone], Service support [phone], CC: Audrey Law DO; Brett Mata MD Safety Physician: Signed Family History Unknown Family Member Name [...] kg/m2 Body Surface Area Calculated 1.61 m2 54-Sqn-620686:44 Temperature 98.3 f Pulse 66 /min Comments: [...] Height 0 in Head Circumference 0.00 cm 10-Ozi-043580:50 Temperature 97.8 f Comments: Method: Oral Pulse [...] DR LAW ORDERED PTHIN/CADR BRANDY ORDERED [facility] [address] [place], [place], [address] GAP 7 (Normal) Range: 5-15 CO2 31.0 [...] Please note revised GLUCOSE reference range /02/2018. 38-Qdm-93511:07 PTHIN 78.1 pg/mL (Normal) Comments: DR LAW ORDERED PTHIN/CADR BRANDY ORDERED C[facility] [address] [place], [address] Range: 18.4-80.1 :07 Vitamin D,25 Hydroxy Comments: DR LAW ORDERED PTHIN/NIYAR BRANDY ORDERED C[facility] [address] [place], [id number] Vitamin D 25-OH 68.3 ng/mL (Normal) Range: 29.95-100.01 Comments: Vitamin D 25(OH) Status Range Deficiency <20 ng/mL (50nmol/L) Insuffciency 20 - 30 ng/mL (50 - 75 nmol/L) Sufficiency 30 - 100 ng/mL (75 - 250 nmol/L) Toxicity >100 ng/mL (>250 nmol/L) 20-Qmg-78394:30 Culture, Urine Comments: [facility] [address] [place], [address] CUUR See Note (Normal) Comments: Urine CultureORGANISM 1: Mixed Gram Positive OrganismsColony Count 1000-10,000MIX CULTURE Mixed contaminants. Submit a new specimen if indicated. 2-Tqp-779935:50 HGB A1C (17618) Comments: PATIENT WAS FASTINGPERFORMED BY: [facility] [id number] [facility] [id number] Hemoglobin A1c 5.6 % (Normal) Range: 4.8-5.6 Comments: . Prediabetes: 5.7 - 6.4 Diabetes: >6.4 Glycemic control for adults with diabetes: <7.0 9-Qlj-289243:50 VITAMIN B-12 (CYANOCOBALAMIN) Comments: PATIENT WAS FASTINGPERFORMED BY: [employer] [id number] (74065) Vitamin B12 626 pg/mL (Normal) Range: 232-1245 2-Tbq-220795:50 METABOLIC PANEL, COMPREHENSIVE Comments: PATIENT WAS FASTINGPERFORMED BY: [employer] [facility] [id number] (50801) ALT (SGPT) 22 [iU]/L (Normal) Range: 0-32 [...] 8-27 Glucose 96 mg/dL (Normal) Range: 65-99 0-Rhl-641644:50 Vitamin D Hydroxy (68099) Comments: PATIENT WAS FASTINGPERFORMED BY: [facility] [id number] Vitamin D, 25-Hydroxy 51.3 ng/mL (Normal) Range: 30.0-100.0 Comments: Vitamin D deficiency has been defined by the [place] of[employer]icine and an Endocrine Society practice guideline as alevel of serum 25-OH vitamin D less than 20 ng/mL (1,2).The Endocrine Society went on to further define vitamin Dinsufficiency as a level between 21 and 29 ng/mL (2).1. IOM ([place] of Medicine). 2010. Dietary reference intakes for calcium and D. [place]: The National AcademSpins.FM Press.2. Robinson MF, Keila AGUERO, Bruce ROBLES, et al. Evaluation, treatment, and prevention of vitamin D deficiency: an Endocrine Society clinical practice guideline. JCEM. 2010; 96(7):1911-30. 8-Tnx-236244:50 LIPID PANEL (59679) Comments: PATIENT WAS FASTINGPERFORMED BY: [facility] Hkonfl2426 [facility] [id number]; review on 04/29 LDL/HDL Ratio 2.6 {ratio} [...] Range: 100-199 18-Nov-20179:16 Comprehensive Metabolic Profil Comments: [facility] [address] [place], [place], [phone] GAP 6 (Normal) Range: 5-15 CO2 31.0 mmol/L (Normal) Range: 21.0-32.0 CL 104 mmol/L (Normal) Range: 98-107 K 3.7 mmol/L (Normal) Range: 3.5-5.1 NA 141 mmol/L (Normal) Range: 136-145 T BILI 0.60 mg/dL (Normal) Range: 0.20-1.00 ALT 29 U/L (Normal) Range: 13-56 Comments: Please note revised ALT reference range hwajhivdh90/28/2018. ALK P 59 U/L (Normal) Range: 45-117 [...] Comments: Please note revised GLUCOSE reference range jagamykgg85/02/2018. :16 PTHIN 75.3 pg/mL (Normal) Comments: [facility] [address] [place], [address] Range: 18.4-80.1 Comments: Please Note: PTH INTACT METHOD AND REFERENCE RANGE CHANGEEffective 07/31/2017. :16 Vitamin D,25 Hydroxy Comments: [facility] [address] [place], [place], [address] Vitamin D 25-OH 71.7 ng/mL (Normal) Range: 29.95-100.01 Comments: Vitamin D 25(OH) Status Range Deficiency <20 ng/mL (50nmol/L) Insuffciency 20 - 30 ng/mL (50 - 75 nmol/L) Sufficiency 30 - 100 ng/mL (75 - 250 nmol/L) Toxicity >100 ng/mL (>250 nmol/L) :52 HGB A1C (52465) Comments: PATIENT WAS FASTINGPERFORMED BY: [facility] [id number] Hemoglobin A1c 5.5 % (Normal) Range: 4.8-5.6 Comments: . Pre-diabetes: 5.7 - 6.4 Diabetes: >6.4 Glycemic control for adults with diabetes: <7.0 :52 CBC W/AUTO DIFF WBC (83101) Comments: PATIENT WAS FASTINGPERFORMED BY: Prim[facility] MakeupMymich[facility] Branch6370 [facility] [id number] Immature Grans (Abs) 0.0 {x10E3/uL} (Normal) Range: [...] PANEL, COMPREHENSIVE Comments: PATIENT WAS FASTINGPERFORMED BY: DadaJOE.comEast Orange VA Medical CenterFguckn6338 [facility] [id number] (96872) ALT (SGPT) 20 [iU]/L (Normal) Range: 0-32 [...] mg/dL (Abnormal) Range: 65-99 :52 LIPID PANEL (01634) Comments: PATIENT WAS FASTINGPERFORMED BY: LabCoEast Orange VA Medical CenterPabksr9996 [facility] [id number]; review at upcoming appt LDL/HDL Ratio 2.3 [...] Cholesterol, Total 177 mg/dL (Normal) Range: 100-199 80-Yzc-19358:00 24 HR Urine Creatinine Comments: [facility] [address] [place], [place], [address] UR.CREAT/24hr 0.98 {g/24_HR} (Normal) Range: 0.70-1.90 URINE CREAT 67.40 mg/dL (Normal) UR TOTAL VOLUME 1.40 L (Normal) UR COLLECT TIME 24.0 {HOURS} (Normal) 45-Hvs-65530:00 Miscellaneous Lab Procedure Comments: Test(s) Ordered: STONE RISK [id number] 24HR URINEWOhioHealth [facility] [address]tegodpdp[address] [place], [place], [address] [facility] Comments: TEST RESULT FLAG UNITS REF INTERVALKidney [...] pH, 24 Hr Urine 6.3 Ammonia, Urine 03634 ug/dL Not Estab. Ammonia, Urine 22 No t Estab. Saturation Ratios Calcium Oxalate 5.13 ratio 0.00 - 6.00 Brushite 1.95 ratio 0.00 - 3.00 Monosodium Urate 1.29 ratio 0.00 - 4.00 U calixto Acid 0.49 ratio 0.00 - 1.20 Struvite 0.04 ratio 0.00 - 1.00 Please note: Graphic analysis of results will follow via computer, mail, or regenerator operator del hayes. TESTING PERFORMED AT [facility]. ORIGINAL REPORT ON FILE IN LAB CONTAINS ADDITIONAL TEST SITE INFORMATION. AMENDED REPORT 10/04/17 0802 [facility] TEST previously reported as: TEST RESULT [...] 24 Hr Urine 6.3 Ammo layton, Urine 18476 ug/dL Not Estab. TESTING PERFORMED AT [facility]. ORIGINAL REPORT ON FILE IN LAB CONTAINS ADDITIONAL TEST SITE INFORMATION. 37-Yns-05518:45 Comprehensive Metabolic Profil Comments: [facility] [address] [place], [address] GAP 6 (Normal) Range: 5-15 CO2 32.0 mmol/L (Normal) Range: 21.0-32.0 CL 101 mmol/L (Normal) Range: 98-107 K 3.8 mmol/L (Normal) Range: 3.5-5.1 NA 139 mmol/L (Normal) Range: 136-145 T BILI 0.60 mg/dL (Normal) Range: 0.20-1.00 ALT 26 U/L (Normal) Range: 13-56 Comments: Please note revised ALT reference range ynjirhfyw47/28/2018. ALK P 55 U/L (Normal) Range: 45-117 [...] Comments: Please note revised GLUCOSE reference range xfcpjmuxv69/02/2018. :45 Magnesium Comments: [facility] [address] [facility] [address] [place], [address](266) MG 2.4 mg/dL (Normal) Range: 1.6-2.6 Comments: Please note revised Magnesium reference range xheqpdczh62/15/2018. :45 Vitamin D,25 Hydroxy Comments: [facility] [address] [place], [address] Vitamin D 25-OH 46.2 ng/mL (Normal) Range: 19.95-100.01 Comments: Vitamin D 25(OH) Status Range Deficiency <20 ng/mL (50nmol/L) Insuffciency 20 - 30 ng/mL (50 - 75 nmol/L) Sufficiency 30 - 100 ng/mL (75 - 250 nmol/L) Toxicity >100 ng/mL (>250 nmol/L) 1-Gip-604302:36 VITAMIN B-12 (CYANOCOBALAMIN) Comments: PATIENT NOT FASTINGPERFORMED BY: [facility]6[address] [facility] [id number] (45499) Vitamin B12 626 pg/mL (Normal) Range: 232-1245 19-Dza-153911:14 CBC W/AUTO DIFF WBC (49924) Comments: PATIENT NOT FASTINGPERFORMED BY: [facility] [id number] Immature Grans (Abs) 0.0 {x10E3/uL} (Normal) Range: [...] 3.77-5.28 WBC 5.2 {x10E3/uL} (Normal) Range: 3.4-10.8 70-Iwu-348373:14 METABOLIC PANEL, COMPREHENSIVE Comments: PATIENT NOT FASTINGPERFORMED BY: [facility] Iksatr94[address] [place] [id number]; review 09/10 (78136) ALT (SGPT) 19 [iU]/L (Normal) Range: 0-32 [...] Glucose, Serum 107 mg/dL (Abnormal) Range: 65-99 2-Avv-476500:04 Comprehensive Metabolic Profil Comments: [facility] Radcirnrhx[address] [place], [place], [phone] GAP 5 (Normal) Range: 5-15 CO2 28.0 [...] 7-18 GLU 85 mg/dL (Normal) Range: 70-110 0-Eep-560575:04 Magnesium Comments: [facility] [address] [place], [address](061) MG 2.4 mg/dL (Normal) Range: 1.8-2.4 9-Imc-389978:04 PTH,INTACT Comments: [facility] [address] [place], [address] PTH,Intact 57 pg/mL (Normal) Range: 14-72 8-Rop-789033:04 Vitamin D,25 Hydroxy Comments: [facility] Y[address]un[address]ve[address] [facility] [address] [place], [place], [address] Vitamin D 25-OH 62.0 ng/mL (Normal) Comments: Vitamin D 25(OH) Status Range Deficiency <20 ng/mL (50nmol/L) Insuffciency 20 - 30 ng/mL (50 - 75 nmol/L) Sufficiency 30 - 100 ng/mL (75 - 250 nmol/L) Toxicity >100 ng/mL (>250 nmol/L) 99-Ynp-840418:07 CBC W/AUTO DIFF WBC Comments: PATIENT WAS FASTINGPERFORMED BY: DadaJOE.com[address] [id number] BY: [facility] Avusqu[address] [place] [id number] ([address]) Immature Grans (Abs) 0.0 {x10E3/uL} (Normal) Range: [...] 3.77-5.28 WBC 5.2 {x10E3/uL} (Normal) Range: 3.4-10.8 54-Jig-825640:07 METABOLIC PANEL, Comments: PATIENT WAS FASTINGPERFORMED BY: DadaJOE.com[address] [id number] BY: DadaJOE.comEast Orange VA Medical CenterNswmxm6283 [facility] [id number] COMPREHENSIVE (34769) ALT (SGPT) 21 [iU]/L (Normal) Range: 0-32 [...] Glucose, Serum 94 mg/dL (Normal) Range: 65-99 16-Exb-075454:07 LIPOPROTEIN, BLD, BY NMR Comments: PATIENT WAS FASTINGPERFORMED BY: LabCo[address] [id number] BY: LabDinner LabEast Orange VA Medical CenterLnlqpl9544 [facility] [id number] (34292) LP-IR Score 59 (Abnormal) Comments: INSULIN RESISTANCE MARKER <--Insulin Sensitive Insulin Resistant--> Percentile in Reference PopulationInsulin Resistance ScoreLP-IR Score Low 25th 50th 75th High <27 27 45 63 >63LP-IR Score is inaccurate if patient is non-fasting. .The LP-IR score is a laboratory developed i [facility] that has beenassociated with insulin resistance [...] 1600 - 2000 Very High > 2000 66-Ezh-292749:07 Vitamin D Hydroxy Comments: PATIENT WAS FASTINGPERFORMED BY: [employer] [id number] BY: [employer] Bniezm4633 [facility] [id number] (65078) Vitamin D, 25-Hydroxy 75.1 ng/mL (Normal) Range: 30.0-100.0 Comments: Vitamin D deficiency has been defined by the [place] of[place]icine and an Endocrine Society practice guideline as alevel of serum 25-OH vitamin D less than 20 ng/mL (1,2).The Endocrine Society went on to further define vitamin Dinsufficiency as a level between 21 and 29 ng/mL (2).1. IOM ([place] of Medicine). 2010. Dietary reference intakes for calcium and D. [place]: The National Academies Press.2. Robinson MF, Keila AGUERO, Bruce ROBLES, et al. Evaluation, treatment, and prevention of vitamin D deficiency: an Endocrine Society clinical practice guideline. JCEM. 2010; 96(7):1911-30. 59-Lgo-103430:07 HGB A1C (09952) Comments: PATIENT WAS FASTINGPERFORMED BY: [employer] [id number] BY: [employer]70 [facility] [id number] Hemoglobin A1c 5.6 % (Normal) Range: 4.8-5.6 Comments: . Pre-diabetes: 5.7 - 6.4 Diabetes: >6.4 Glycemic control for adults with diabetes: <7.0 7-Dsb-730983:30 Rapid Flu (97536 x 2) Influenza A Ag positive A (Normal) 63-Xhc-26656:49 MICROALBUMIN: CREATININE Comments: PATIENT WAS FASTINGPERFORMED BY: [employer] [address] [id number] BY: [employer] Qgjodi9602 [facility] [id number] RATIO (70256) AND (58666) Microalb/Creat Ratio 9.5 {mg/g_creat} (Normal) Range: 0.0-30.0 Microalbumin, Urine 18.9 ug/mL (Normal) Creatinine, Urine 200.0 mg/dL (Normal) :49 HGB A1C (52721) Comments: PATIENT WAS FASTINGPERFORMED BY: LabDinner Lab[address] [id number] BY: LabMymichigan Medical Center [facility] Branch6370 [facility] [id number] Hemoglobin A1c 5.8 % (Abnormal) Range: 4.8-5.6 Comments: . Pre-diabetes: 5.7 - 6.4 Diabetes: >6.4 Glycemic control for adults with diabetes: <7.0 :49 METABOLIC PANEL, Comments: PATIENT WAS FASTINGPERFORMED BY: LabDinner LabAngela Ville 923817 [facility] [id number] BY: LabMymichigan Medical Center [facility] Branch6370 [facility] [id number] COMPREHENSIVE (89882) ALT (SGPT) 13 [iU]/L (Normal) Range: 0-32 [...] Glucose, Serum 91 mg/dL (Normal) Range: 65-99 56-Edc-66143:49 LIPOPROTEIN, BLD, BY NMR Comments: PATIENT WAS FASTINGPERFORMED BY: BN [facility] Vmedaizwqo6844 [facility] [id number] BY: CB [facility] Bzuctb1950 [facility] [id number]; fu 11-28 Dr. Law (07837) LP-IR Score 36 (Normal) Comments: INSULIN RESISTANCE MARKER <--Insulin Sensitive Insulin Resistant--> Percentile in Reference PopulationInsulin Resistance ScoreLP-IR Score Low 25th 50th 75th High <27 27 45 63 >63LP-IR Score is inaccurate if patient is non-fasting. .The LP-IR score is a laboratory developed i [facility] that has beenassociated with insulin resistance [...] were developed and their performance characteristicsdetermined by [employer]. These assays have not been cleared by [...] 1600 - 2000 Very High > 2000 42-Jkg-416460:00 Comprehensive Metabolic Profil Comments: [facility] [address] [place], [address] GAP 4 (Abnormal) Range: 5-15 CO2 30.0 [...] 7-18 GLU 80 mg/dL (Normal) Range: 70-110 88-Tge-983398:00 Magnesium Comments: [facility] [address] [place], [place], [address] MG 2.2 mg/dL (Normal) Range: 1.8-2.4 55-Bze-844589:00 PTH,INTACT Comments: [facility] [address] [place], [place], [address] PTH,Intact 39 pg/mL (Normal) Range: 14-72 79-Nhj-105593:00 Vitamin D,25 Hydroxy Comments: [facility] [address] [place], [place], [address] Vitamin D 25-OH 44.7 ng/mL (Normal) Comments: Vitamin D 25(OH) Status Range Deficiency <20 ng/mL (50nmol/L) Insuffciency 20 - 30 ng/mL (50 - 75 nmol/L) Sufficiency 30 - 100 ng/mL (75 - 250 nmol/L) Toxicity >100 ng/mL (>250 nmol/L) :23 HgA1C , Office (31225) HgA1C , Office 5.3 % (Normal) Range: 4.6 - 7.1 :42 CBC W/Diff, Automated Comments: [facility] [address] [place], [address] Absolute Lymph [...] 4.2-5.4 WBC 5.2 K/mm3 (Normal) Range: 4.4-11.0 90-Aad-73496:42 Comprehensive Metabolic Profil Comments: [facility] [address] [place], [address] ; non-emergent till apt GAP [...] (Normal) Range: 70-110 :42 Lipid Profile Comments: [facility] [address] [place], [address] VLDL 30 mg/dL (Normal) Range: 5-40 LDL [...] High Risk :42 Microalb:Creat Ratio,Random UR Comments: [facility] [address] [place], [id number] MALB:CREAT 7.2 {mg/g_CRE} (Normal) MICROALBUMIN,UR 12.0 mg/L (Normal) UR CREAT 166.00 mg/dL (Normal) :42 Vitamin B12 726 pg/mL (Normal) Comments: [facility] [address] [place], [address] ; will review on 05/08 appt Range: 211-911 :42 Vitamin D,25 Hydroxy Comments: [facility] [address] [place], [address] Vitamin D 25-OH 56.6 ng/mL (Normal) Comments: Vitamin D 25(OH) Status Range Deficiency <20 ng/mL (50nmol/L) Insuffciency 20 - 30 ng/mL (50 - 75 nmol/L) Sufficiency 30 - 100 ng/mL (75 - 250 nmol/L) Toxicity >100 ng/mL (>250 nmol/L) :46 Culture, Urine Comments: [facility] [address] [place], [id number] CUUR See Note (Normal) Comments: Urine CultureORGANISM [...] $ <=20 S(NF) indicates non-formulary drug at [facility]. Approval by Infectious Disease Specialist required before non-formulary drugs may be ordered and/or dispensed. :46 Urinalysis, Routine (Dipstick) Comments: How was Urine Obtained? CLEAN CATCHWOhio[facility] [address]ueeqila[address] [place], [place], [id number] LEUK ESTERASE 500 /ul (Abnormal) OCCULT BLOOD-UR 25 /ul (Abnormal) NITRITE UR Negative (Normal) UROBILI Normal mg/dL (Normal) PROT DIPSTX 30 mg/dL (Abnormal) pH UR 6.0 (Normal) Range: 5.0 - 8.0 SP.GR. DIPSTX 1.025 (Normal) Range: 1.002-1.030 KETONE UR Negative mg/dL (Normal) BILIRUBIN URINE Negative mg/dL (Normal) GLUCOSE, UR Normal mg/dL (Normal) CLARITY Sl. Cloudy (Normal) COLOR Yellow (Normal) 24-Bpe-930147:34 PTH,INTACT Comments: [facility] [address] [place], [place], [address] PTH,Intact 64 pg/mL (Normal) Range: 14-72 03-Mjw-951293:09 CBC W/Diff, Automated Comments: [facility] [address] [place], [place], [address] Absolute Lymph 1.36 {X10_3/ul} (Normal) Range: 0.83-4.51 [...] 4.2-5.4 WBC 5.2 K/mm3 (Normal) Range: 4.4-11.0 10-Ryu-775842:09 Comprehensive Metabolic Profil Comments: [facility] [address] [place], [place], [address] GAP 2 (Abnormal) Range: 5-15 CO2 31.0 [...] 7-18 GLU 99 mg/dL (Normal) Range: 70-110 44-Cmi-764729:09 Hemoglobin A1c Comments: [facility] [address] [place], [address] HGB A1C 5.4 % (Normal) Range: 4.2-6.3 63-Uwp-679641:09 Lipid Profile Comments: [facility] [address]ph[address] [place], [address] VLDL 29 mg/dL (Normal) Range: 5-40 LDL [...] 200-240 mg/dL Borderline >240 mg/dL High Risk 33-Ple-180417:09 Microalb:Creat Ratio,Random UR Comments: [facility] [address]ruokvom[address] [place], [address] MALB:CREAT 13.7 {mg/g_CRE} (Normal) MICROALBUMIN,UR 19.5 mg/L (Normal) UR CREAT 142.00 mg/dL (Normal) 62-Cwa-645546:09 Vitamin B12 543 pg/mL (Normal) Comments: [facility] [address]dfcoqxyr[address] [place], [address] Range: 211-911 19-Bga-056037:09 Vitamin D,25 Hydroxy Comments: [facility] Rrwnnihhig[address] [place], [address] Vitamin D 25-OH 58.6 ng/mL (Normal) Comments: Vitamin D 25(OH) Status Range Deficiency <20 ng/mL (50nmol/L) Insuffciency 20 - 30 ng/mL (50 - 75 nmol/L) Sufficiency 30 - 100 ng/mL (75 - 250 nmol/L) Toxicity >100 ng/mL (>250 nmol/L) 29-Abs-093738:30 Comprehensive Metabolic Profil Comments: [facility] [address] [place], [address] ; Ordered by another doctor GAP 6 [...] 7-18 GLU 93 mg/dL (Normal) Range: 70-110 01-Wia-782890:30 PTH,INTACT Comments: [facility] [address]vsn[address] [place], [address] PTH,Intact 70 pg/mL (Normal) Range: 14-72 99-Yzy-945387:30 Vitamin D,25 Hydroxy Comments: [facility] [address]dess[address] [place], [place], [address] Vitamin D 25-OH 52.0 ng/mL (Normal) Comments: Vitamin D 25(OH) Status Range Deficiency <20 ng/mL (50nmol/L) Insuffciency 20 - 30 ng/mL (50 - 75 nmol/L) Sufficiency 30 - 100 ng/mL (75 - 250 nmol/L) Toxicity >100 ng/mL (>250 nmol/L) 22-Muv-620868:23 URINE LOW CULTURE-RUDDY COL Comments: PATIENT NOT FASTINGPERFORMED BY: [facility] Ktbqzh9040 [facility] [id number] Information: SRC:UR [id number] COUNT (48110) Result 1 NG36 (Normal) Comments: No growth in 36 - 48 hours. Urine Culture,Comprehensive Final report (Normal) 53-Cwe-78248:56 Urinalysis, Office (82911) UA - LEUKOCYTE ESTERASE Negative (Normal) UA - NITRITE Negative (Normal) URINE UROBILINGN RUDDY TIMED Normal mg/dL (Normal) UA - PROTEIN Negative mg/dL (Normal) UA - PH 7 (Normal) UA - BLOOD Negative (Normal) UA - SPECIFIC GRAVITY 1.030 (Abnormal) UA - KETONES Negative mg/dL (Normal) UA - BILIRUBIN Negative (Normal) UA - GLUCOSE Negative (Normal) 79-Bwl-76054:29 HgA1C , Office (53625) HgA1C , Office 5.7 % (Normal) Range: 4.6 - 7.1 5-Vwb-703868:11 Comprehensive Metabolic Profil Comments: [facility] [address] [place], [place], [address] ; apt. 10-16-15 GAP 5 (Normal) Range: [...] 7-18 GLU 80 mg/dL (Normal) Range: 70-110 8-Opl-125878:11 Culture, Urine Comments: [facility] Qqvvviasnd[address] [facility] [address] [place], [place], [address] CUUR See Note (Normal) Comments: Urine CultureCulture exhibits no growth. 9-Zmh-834914:11 Lipid Profile Comments: [facility] [address]nav[address] [facility] [place], [place], [address] VLDL 27 mg/dL (Normal) Range: 5-40 LDL [...] :11 Vitamin B12 545 pg/mL (Normal) Comments: [facility] [address]pii[address] [place], [address] Range: 211-911 Comments: ADDENDA: normal and has apt next week 05-Frp-383695:00 Comprehensive Metabolic Profil Comments: Test performed at:[facility] [address] [place] [address] ; handled by weytesha GAP 3 (Abnormal) [...] 7-18 GLU 91 mg/dL (Normal) Range: 70-110 68-Mpo-975423:00 PTH,INTACT Comments: Test performed at:[facility] [address]ffz[address] [place] [address] PTH,Intact 87 pg/mL (Abnormal) Range: 14-72 73-Dzs-996169:00 Thyroid Stim Hormone (TSH) Comments: Test performed at:[facility] [address]hw[address]ttt[address] [place] [address] TSH 0.57 {uIU/mL} (Normal) Range: 0.358-3.74 36-Ywq-481771:00 Vitamin D,25 Hydroxy Comments: Test performed at:[facility] Q[address]ncuzl[address] [place] [address] Vitamin D 25-OH 38.5 ng/mL (Normal) Comments: Vitamin D 25(OH) Status Range Deficiency <20 ng/mL (50nmol/L) Insuffciency 20 - 30 ng/mL (50 - 75 nmol/L) Sufficiency 30 - 100 ng/mL (75 - 250 nmol/L) Toxicity >100 ng/mL (>250 nmol/L) 7-Pmh-565211:51 URINE LOW CULTURE-RUDDY COL Comments: PATIENT NOT FASTINGPERFORMED BY: [facility] Hcclmj9676 [facility] [id number] Information: SRC:URC [id number]; susept. to cipro and was treated COUNT (32922) Antimicrobial MIHEAD (Normal) Comments: S = Susceptible; [...] mL (Abnormal) Urine Final report Culture,Comprehensive (Abnormal) 9-Nbp-953945:15 Urinalysis, Office (57130) UA - LEUKOCYTE ESTERASE Moderate (Normal) UA - NITRITE Negative (Normal) URINE UROBILINGN RUDDY TIMED Normal mg/dL (Normal) UA - PROTEIN 30 mg/dL (Normal) UA - PH 6.0 (Normal) Comments: 5.5 UA - BLOOD Non Hemolyzed Moderate (Normal) UA - SPECIFIC GRAVITY 1.020 (Normal) UA - KETONES 15 mg/dL (Abnormal) UA - BILIRUBIN Negative (Normal) UA - GLUCOSE Negative (Normal) 36-Eyp-29920:18 Immunofixation Urine Comments: Test performed at:[facility] [address]mmj[address] [place] [address] GEMMA Urine Comment (Normal) Comments: No monoclonality detected.Performed at: - Lab[address] [id number] Director: Himanshu Leung PhD, Phone: [phone] 37-Evg-71008:18 PTH,INTACT Comments: Test performed at:[facility] [address]xr[address] [place] [address] PTH,Intact 65 pg/mL (Normal) Range: 14-72 :18 Vitamin D,25 Hydroxy Comments: Test performed at:[facility] [address]rb[address] [place] [address] Vitamin D 25-OH 45.2 ng/mL (Normal) Comments: Vitamin D 25(OH) Status Range Deficiency <20 ng/mL (50nmol/L) Insuffciency 20 - 30 ng/mL (50 - 75 nmol/L) Sufficiency 30 - 100 ng/mL (75 - 250 nmol/L) Toxicity >100 ng/mL (>250 nmol/L) 80-Pxj-713383:29 Basic Metabolic Profile (BMP) Comments: Test performed at:[facility] [address] [place] [address] ; handled by nohelia GAP [...] Comments: Please note revised CREATININE reference range /22/2015. BUN 15 mg/dL (Normal) Range: 7-18 GLU 97 mg/dL (Normal) Range: 70-110 4-Jad-670695:05 Immunofixation Urine Comments: Test performed at:[facility] [address] [place] [address] GEMMA Urine Comment (Normal) Comments: No monoclonality detected.Performed at: [place] [facility] [address] [id number] Director: Shady Jackson PhD, Phone: [phone] 1-Wff-013946:05 PTH,INTACT Comments: ORDERED LIPID,LIVERDR.BENIGNO ORDERED BMP,PTHIN,VITD,URINE IMMUNTest performed at:[facility] [address]ol[address] [place] [address] PTH,Intact 80 pg/mL (Abnormal) Range: 14-72 7-Ppv-010366:05 Vitamin D,25 Hydroxy Comments: Test performed at:[facility] [address]pb[address] [place] [address] Vitamin D 25-OH 35.6 ng/mL (Normal) Comments: Vitamin D 25(OH) Status Range Deficiency <20 ng/mL (50nmol/L) Insuffciency 20 - 30 ng/mL (50 - 75 nmol/L) Sufficiency 30 - 100 ng/mL (75 - 250 nmol/L) Toxicity >100 ng/mL (>250 nmol/L) 3-Hap-327278:04 Basic Metabolic Profile (BMP) Comments: Test performed at:[facility] [address] [place] [address] GAP 8 (Normal) Range: 5-15 [...] 7-18 GLU 86 mg/dL (Normal) Range: 70-110 4-Yki-899887:04 Lipid Profile Comments: Test performed at:[facility] A[address] [place] [address] VLDL 19 mg/dL (Normal) Range: 5-40 [...] Risk :04 Liver Profile Comments: Test performed at:[facility] [address] [place] [address] D BILI 0.16 mg/dL (Normal) Range: 0.00-0.30 T BILI 0.70 mg/dL (Normal) Range: 0.20-1.00 ALT 32 U/L (Normal) Range: 12-78 ALK P 53 U/L (Normal) Range: 50-136 AST 17 U/L (Normal) Range: 15-37 GLOB 3.1 g/dL (Normal) Range: 2.7-4.2 ALB 4.0 g/dL (Normal) Range: 3.4-5.0 T PROT 7.1 g/dL (Normal) Range: 6.4-8.2 :03 24 HR Urine Creatinine Comments: Test performed at:[facility] [id number] [place] [id number] UR.CREAT/24hr 1.3 {g/24_hr} (Normal) Range: 0.6-1.5 URINE CREAT 158.2 mg/dL (Normal) UR TOTAL VOLUME 0.85 L (Normal) UR COLLECT TIME 24.0 {HOURS} (Normal) [id number] Miscellaneous Lab Procedure Comments: Comments: STONERISK PANEL #[id number](s) Ordered: STONERISK PANEL #[id number] performed at:[facility] [id number] [place] [address] [facility] [place] Comments: TEST RESULT UNITS REFERENCE INTERVALKidney Stone, [...] - 1800.0pH, 24 Hr Urine 5.3Ammonia, Urine 43101 ug/dL Not Estab.Ammonia, Urine 20 mEq/24 hr Not E stab.Saturation Ratios:Calcium Oxalate 21.12 High ratio 0.00 - 6.00Brushite 1.78 ratio 0.00 - 3.00Monosodium Urate 2.48 ratio 0.00 - 4.00Uric Acid 5.05 High ratio 0.00 - 1.20Struvite 0.01 ratio 0.00 - 1.00Please note:Graphic analysis of results will follow:Scanned image report available in EMR TESTING PERFORMED AT [facility]. ORIGINAL REPORT ON FILE IN LAB CONTAINS ADDITIONAL TEST SITE INFORMATION. [id number] Urine Culture,Comprehensive Comments: PATIENT NOT FASTINGPERFORMED BY: [facility] [id number] Information: [facility] [id number] Result 1 ECV (Abnormal) Comments: Escherichia coli, [...] report Culture,Comprehensi (Abnormal) ve :54 Urinalysis, Office (91403) UA - LEUKOCYTE ESTERASE Trace (Normal) UA - NITRITE Positive (Normal) URINE UROBILINGN RUDDY TIMED 2 mg/dL (Normal) UA - PROTEIN 30 mg/dL (Normal) UA - PH 6.0 (Normal) UA - BLOOD Negative (Normal) UA - SPECIFIC GRAVITY 1.030 (Abnormal) UA - KETONES Small mg/dL (Normal) UA - BILIRUBIN Negative (Normal) UA - GLUCOSE Negative (Normal) :42 HgA1C , Office (49636) HgA1C , Office 5.7 % (Normal) Range: 4.6 - 7.1 :58 CBC W/Diff, Automated Comments: Test performed at:[facility] [address] [place] [address] Absolute Lymph 1.31 {X10_3/ul} (Normal) Range: 0.83-4.51 [...] 4.2-5.4 WBC 5.2 K/mm3 (Normal) Range: 4.4-11.0 87-Cbd-853217:58 Vitamin B12 368 pg/mL (Normal) Comments: Test performed at:[facility] [address] [place] [address] Range: 211-911 33-Auy-735728:58 Vitamin D,25 Hydroxy Comments: Test performed at:[facility] Dy[address] [place] [address] Vitamin D 25-OH 31.4 ng/mL (Normal) Comments: Vitamin D 25(OH) Status Range Deficiency <20 ng/mL (50nmol/L) Insuffciency 20 - 30 ng/mL (50 - 75 nmol/L) Sufficiency 30 - 100 ng/mL (75 - 250 nmol/L) Toxicity >100 ng/mL (>250 nmol/L) 61-Rey-181971:46 Bilirubin, Direct Comments: LIPID LIVERASAEL [facility] MGDR.FAST CMP LIPID VITD E38YCTCEnbs performed at:[facility] Nmlgsyodsj7[address] [place] [address] D BILI 0.16 mg/dL (Normal) Range: 0.00-0.30 69-Yud-883818:46 Comprehensive Metabolic Profil Comments: DR.OFORI OROPEZA LIVERASAEL [facility] MGDR.FAST CMP LIPID VITD H67CVXLSnug performed at:[facility] S[address] [place] [address] GAP 6 (Normal) Range: 5-15 CO2 29.0 [...] 7-18 GLU 87 mg/dL (Normal) Range: 70-110 49-Imh-963412:46 Lipid Profile Comments: DR.OFORI SANDIP SINGHVAISAEL [facility] MGDR.FAST CMP LIPID VITD T50NMXTJnpo performed at:[facility] C[address] [place] [address] [id number] ; handled by cardio VLDL 25 mg/dL [...] 200-240 mg/dL Borderline >240 mg/dL High Risk 99-Kni-863521:46 Magnesium Comments: DR.OFORI SANDIP [facility] MGDR.FAST CMP LIPID VITD K84HUBVZprr performed at:[facility] Mzxziguysd0343 [place], [place] [address] MG 2.1 mg/dL (Normal) Range: 1.8-2.4 42-Ymf-760538:31 Comprehensive Metabolic Profil Comments: Test performed at:[facility] [address]oc[address] [place] [address] GAP 6 (Normal) Range: 5-15 [...] 7-18 GLU 92 mg/dL (Normal) Range: 70-110 65-Mvz-001362:31 Free T3 Comments: Test performed at:[facility] [address] [place] [address] FREE T3 3.1 pg/mL (Normal) Range: 2.18-3.98 64-Lpl-582644:31 Immunofixation Urine Comments: Test performed at:[facility] Ehbqxj[address] [place] [address] GEMMA Urine Comment (Normal) Comments: No monoclonality detected.Performed at: [address], [place] [address]Lud Director: Shady Jackson PhD, Phone: [phone] 17-Xrv-814339:31 T4 Free Direct Comments: Test performed at:[facility] [address] [place] [address] T4 FREE DIRECT 0.97 ng/dL (Normal) Range: 0.76-1.46 55-Ajw-588585:31 Thyroid Stim Hormone (TSH) Comments: Test performed at:[facility] [address] [place], [place] [address] TSH 0.41 {uIU/mL} (Normal) Range: 0.358-3.74 2-Pqn-235578:59 EBV Panel (90949) Comments: PATIENT NOT FASTINGPERFORMED BY: [facility] [address] [id number] Interpretation: SPRCS (Normal) Comments: EBV Interpretation Chart [...] <36.0 Equivocal 36.0 - 43.9 Positive >43.9 9-Olw-529510:59 CBC W/AUTO DIFF WBC Comments: PATIENT NOT FASTINGPERFORMED BY: [facility] [id number] Information: 004161,[id number] (57241) Immature Grans (Abs) 0.0 {x10E3/uL} (Normal) Range: [...] 3.77-5.28 WBC 5.2 {x10E3/uL} (Normal) Range: 3.4-10.8 8-Cjf-893257:05 URINE LOW CULTURE-RUDDY COL Comments: PATIENT NOT FASTINGPERFORMED BY: [facility] [id number] Information: SRC:[facility] H23535 COUNT (82011) Result 1 MUG (Normal) Comments: Mixed urogenital asawt249 Colonies/mL Urine Culture,Comprehensive Final report (Normal) 2-Zka-655906:07 Urinalysis, Office (76527) UA - LEUKOCYTE ESTERASE Negative (Normal) UA - NITRITE Negative (Normal) URINE UROBILINGN RUDDY TIMED 2 mg/dL (Normal) UA - PROTEIN 30 mg/dL (Normal) UA - PH 6.0 (Normal) Comments: 5.5 UA - BLOOD Negative (Normal) UA - SPECIFIC GRAVITY 1.030 (Abnormal) UA - KETONES Negative mg/dL (Normal) UA - BILIRUBIN Negative (Normal) UA - GLUCOSE Negative (Normal) 02-Emm-450335:56 Rapid Flu (67248 x 2) Influenza A Ag neg (Normal) 76-Vhj-442250:22 URINE LOW CULTURE-RUDDY COL Comments: PATIENT NOT FASTINGPERFORMED BY: [facility] [id number] Information: SRC:URC [id number] COUNT (25767) Result 1 MUG (Normal) Comments: Mixed urogenital flora3,000 Colonies/mL Urine Culture,Comprehensive Final report (Normal) 61-Sxq-222675:23 Urinalysis, Office (36569) UA - LEUKOCYTE ESTERASE Negative (Normal) UA - NITRITE Negative (Normal) URINE UROBILINGN RUDDY TIMED Normal mg/dL (Normal) UA - PROTEIN Negative mg/dL (Normal) UA - PH 6.0 (Normal) Comments: 5.5 UA - BLOOD Hemolyzed Trace (Normal) UA - SPECIFIC GRAVITY 1.030 (Abnormal) UA - KETONES 40 mg/dL (Abnormal) UA - BILIRUBIN Negative (Normal) UA - GLUCOSE Negative (Normal) 15-Zpy-02582:19 URINE CALCIUM RUDDY TIMED Comments: PATIENT NOT FASTINGPERFORMED BY: Yebol LabCoDATAllegro70 [facility] [id number] Information: START 10/05/14@630AM FINISH 24 Hour (72581) Calcium, Urine 24hr 330.0 {mg/24_hr} (Abnormal) Range: 100.0-300.0 Calcium, Urine 33.0 mg/dL (Normal) Comments: Results confirmed ondilution. 62-Rgv-307287:34 CBC W/Diff, Automated Comments: DR LAW ORDERED CBCD VITD CMP B12 IVAN NAVARRO ORDERED LIPID LIVERTest performed at:[facility] [address] [place] [address] ; handled by Emelina Navarro Absolute Lymph [...] 4.2-5.4 WBC 4.9 K/mm3 (Normal) Range: 4.4-11.0 41-Wvd-264358:34 Comprehensive Metabolic Comments: Interface Comments: IDR V0-[id number] WO F790514 V0-[id number] Main V0- [id number] Lab [id number] 1034 [facility] IW0639 V0-[id number] Main2 LIVER Routine Profil 1 PA.MMURRA INT Main3 20140827 1034 [id number] Transmitted Cookie ARDON 88834-3I 0788-1 OV LABORD CD.Queries INT.COM CD.Queries INT.DX CD.Queries INT.ORDDT CD.Queries INT.OVID CD.Queries INT.OVORD CD.Queries OECOM CD.Queries OM.PTARRIVED CD.Queries OM.REASONDiagnosis:Diagnosis: IDR V0-[id number] [facility] Y438816 V0-B2014 59312Ypcdztoni: 34040818 Main V0-[id number] Lab 60941014 1034Diagnosis: RANGLE MW8238 V0-[id number] Main2 LIPID RoutDiagnosis: ine 1 PA.MMURRA INT Main3 20140812 6 7143 [id number]: 51096 Transmitted LisData Stacey 13602-1N 77684-Urplozrcd: 1 OV LAB ORD CD.Queries INT.COM 12 HOURS FASTING,Diagnosis: MAY HAVE WATER. PLEASE SEND CO PY TO PRIMARY CAREDiagnosis: PHYSICIAN. CD.Queries INT.DX CD.Queries INT.ORDDTDiagnosis: CD.Queries INT.OVID CD.Queries INT.OVORD CD.QueDiagnosis: sneha OECOM CD.Queries OM .PTARRIVED CD.Queries OM.Diagnosis: REASONTest performed at:[facility] [address] [place] [address] GAP 3 (Abnormal) Range: 5-15 CO2 29.0 [...] 7-18 GLU 87 mg/dL (Normal) Range: 70-110 72-Aft-340239:34 Lipid Profile Comments: Interface Comments: IDR V0-[id number] [facility] M078240 V0-[id number] Main V0-[id number] Lab 20140827 1034 KEV TC5647 V0-[id number] Main2 LIVER Routine 1 PA.MMURRA INT Main3 69325613 1034 [id number] Transmitted LisData N 70442-6Z 0788-1 OV LABORD CD.Queries INT.COM CD.Queries INT.DX CD.Queries INT.ORDDT CD.Queries INT.OVID CD.Queries INT.OVORD CD.Queries OECOM CD.Queries OM.PTARRIVED CD.Queries OM.REASONDiagnosis:Diagnosis: IDR V0-[id number] [facility] U218325 V0-B2014 30502Ejlbrxvvb: 90600162 Main V0-[id number] Lab 20140827 1034Diagnosis: KEV TL1397 V0-[id number] Main2 LIPID RoutDiagnosis: ine 1 PA.MMURRA INT Main3 20140812 6 1036 8610-5173712Qlawoafmb: 87426 Transmitted LisData N 99546-5J 99099-Dxcrklsdk: 1 OV LAB ORD CD.Queries INT.COM 12 HOURS FASTING,Diagnosis: MAY HAVE WATER. PLEASE SEND CO PY TO PRIMARY CAREDiagnosis: PHYSICIAN. CD.Queries INT.DX CD.Queries INT.ORDDTDiagnosis: CD.Queries INT.OVID CD.Queries INT.OVORD CD.QueDiagnosis: sneha OECOM CD.Queries OM .PTARRIVED CD.Queries OM.Diagnosis: REASONTest performed at:[facility] [address] [place] [address] VLDL 20 mg/dL (Normal) Range: 5-40 LDL [...] 200-240 mg/dL Borderline >240 mg/dL High Risk 59-Dsh-994459:34 Thyroid Stim Hormone Comments: Interface Comments: IDR V0- [id number] [facility] E467512 V0-[id number] Main V0- [id number] Lab 20140827 1034 RANGLE LG5852 V0-[id number] Main2 LIVER Routine (TSH) 1 PA.MMURRA INT Main3 59361302 1033 [id number] Transmitted LisData N [id number] 0788-1 OV LABORD CD.Queries INT.COM CD.Queries INT.DX CD.Queries INT.ORDDT CD.Queries INT.OVID CD.Queries INT.OVORD CD.Queries OECOM CD.Queries OM.PTARRIVED CD.Queries OM.REASONDiagnosis:Diagnosis: IDR V0-[id number] [facility] E259747 V0-B2014 54116Dsbrdfclt: [id number] Main V0-[id number] Lab 20140827 1034Diagnosis: KEV OX1105 V0-[id number] Main2 LIPID RoutDiagnosis: ine 1 PA.MMURRA INT Main3 0367774 6 1039 [id number]: 43198 Transmitted LisData N 74906-2G 34053-Ykenirsuq: 1 OV LAB ORD CD.Queries INT.COM 12 HOURS FASTING,Diagnosis: MAY HAVE WATER. PLEASE SEND CO PY TO PRIMARY CAREDiagnosis: PHYSICIAN. CD.Queries INT.DX CD.Queries INT.ORDDTDiagnosis: CD.Queries INT.OVID CD.Queries INT.OVORD CD.QueDiagnosis: sneha OECOM CD.Queries OM .PTARRIVED CD.Queries OM.Diagnosis: REASONTest performed at:[facility] [address] [address] TSH 0.44 {uIU/mL} (Normal) Range: 0.358-3.74 88-Nvb-886392:34 Vitamin B12 439 pg/mL (Normal) Comments: Test performed at:[facility] [address]sg[address] [place] [address] Range: 211-911 36-Pls-350957:34 Vitamin D,25 Hydroxy Comments: Test performed at:[facility] [address]qc[address] [place] [address] Vitamin D 25-OH 45.3 ng/mL (Normal) Comments: Vitamin D 25(OH) Status Range Deficiency <20 ng/mL (50nmol/L) Insuffciency 20 - 30 ng/mL (50 - 75 nmol/L) Sufficiency 30 - 100 ng/mL (75 - 250 nmol/L) Toxicity >100 ng/mL (>250 nmol/L) 92-Dki-666425:13 HgA1C , Office (14699) HgA1C , Office 5.5 % (Normal) Range: 4.6 - 7.1 56-Vny-99969:07 URINE LOW CULTURE-IDENTIFICATN Comments: PATIENT NOT FASTINGPERFORMED BY: [facility] [id number] Information: [id number] (96946) Antimicrobial MIHEAD (Normal) Comments: S = Susceptible; [...] primarily for treating urinary tract infections. (CLSI, M604-A40,2009) Urine Final report (Abnormal) Culture,Comprehensive 86-Ddl-19915:54 Urinalysis, Office (41849) UA - LEUKOCYTE ESTERASE Negative (Normal) UA [...] CHOL 191 mg/dL (Normal) Comments: <200 mg/dL Nyxjnmssi428-752 mg/dL Borderline>240 mg/dL High Risk :54 LIVER BID 0.12 mg/dL (Normal) Range: 0.00-0.30 BIT 0.60 mg/dL (Normal) Range: 0.00-4.00 ALT 23 U/L (Normal) Range: 12-78 ALK 61 U/L (Normal) Range: 50-136 AST 13 U/L (Abnormal) Range: 15-37 ALB 3.8 g/dL (Normal) Range: 3.4-5.0 TPROT 7.0 g/dL (Normal) Range: 6.4-8.2 6-Ymz-135205:34 CUUR URC See Note (Normal) Comments: ORGANISM [...] $ <=20 S(NF) indicates non-formulary drug at [facility]. Approval by Infectious DiseaseSpecialist required before non-formulary drugs may beordered and/or dispensed. 2-Las-132651:33 [facility] Comments: How was Urine Obtained? INT UMUC [...] UCLAR Sl. Cloudy (Normal) UCOL Yellow (Normal) 57-Hod-560544:54 VITAMIN B-12 (CYANOCOBALAMIN) Comments: PATIENT NOT FASTINGPERFORMED BY: [facility] Yiirrq6802 [address] [facility] [id number] (08785) Vitamin B12 439 pg/mL (Normal) Range: 211-946 59-Sdu-900097:54 METABOLIC PANEL, COMPREHENSIVE Comments: PATIENT NOT FASTINGPERFORMED BY: [facility] Ypayvt9160 [facility] [id number] (39985) ALT (SGPT) 15 [iU]/L (Normal) Range: 0-32 [...] Glucose, Serum 97 mg/dL (Normal) Range: 65-99 54-Mpz-461782:54 CBC WITH MANUAL DIFF Comments: PATIENT NOT FASTINGPERFORMED BY: [facility]Co[facility] CenterIivbkk6065 [facility] [id number] Information: [id number] (14770) Immature Grans (Abs) 0.0 {x10E3/uL} (Normal) Range: [...] 3.77-5.28 WBC 5.3 {x10E3/uL} (Normal) Range: 3.4-10.8 93-Ttr-666197:44 PARATHORMONE (66395) Comments: PATIENT NOT FASTINGPERFORMED BY: [employer] Ncvnsy[address] [place] [id number] PTH, Intact 38 pg/mL (Normal) Range: 15-65 76-Shf-771455:44 TSH (THYROID STIMULATING Comments: PATIENT NOT FASTINGPERFORMED BY: [employer] Hhwvfv6841 [address] [place] [id number] Information: [id number] HORMONE) (29291) TSH 0.535 {uIU/mL} (Normal) Range: 0.450-4.500 99-Vsd-309865:44 PHOSPHORUS (82556) Comments: PATIENT NOT FASTINGPERFORMED BY: [employer] Hznmgo3898 [address] [place] CapitalDublin [place] [id number] Phosphorus, Serum 2.9 mg/dL (Normal) Range: 2.5-4.5 62-Ozv-930297:21 Calcium Serum (22278) Comments: 10 days; PATIENT NOT FASTINGPERFORMED BY: [address] [id number] Information: [id number] Calcium, Serum 10.3 mg/dL (Abnormal) Range: 8.6-10.2 73-Exo-306111:32 Urinalysis, Office (55371) UA - LEUKOCYTE ESTERASE Negative (Normal) UA - NITRITE Negative (Normal) URINE UROBILINGN RUDDY TIMED Normal mg/dL (Normal) UA - PROTEIN Negative mg/dL (Normal) UA - PH 6.5 (Normal) UA - BLOOD Non Hemolyzed Trace (Normal) UA - SPECIFIC GRAVITY 1.010 (Normal) UA - KETONES Negative mg/dL (Normal) UA - BILIRUBIN Negative (Normal) UA - GLUCOSE Negative (Normal) 67-Oab-874729:41 URINE LOW CULTURE (RUDDY Comments: PATIENT NOT FASTINGPERFORMED BY: [address] [id number] Information: SRC: [id number] COL COUNT) (09493) Result 1 MUG (Normal) Comments: Mixed urogenital ugroz860 Colonies/mL Urine Culture,Comprehensive Final report (Normal) 4-Kfg-406934:12 CALCIUM SERUM (76189) Comments: redraw in 10 days; PATIENT NOT FASTINGPERFORMED BY: [place] 7031570 [facility] [id number] Information: [id number] Calcium, Serum 10.1 mg/dL (Normal) Range: 8.6-10.2 12-Nfu-762333:13 CBC WITH MANUAL DIFF Comments: PATIENT NOT FASTINGPERFORMED BY: [place] 7031570 [facility] [id number] Information: [id number],[id number] (03514) Immature Grans (Abs) 0.0 {x10E3/uL} (Normal) Range: [...] 3.77-5.28 WBC 5.7 {x10E3/uL} (Normal) Range: 3.4-10.8 06-Xmm-274633:13 METABOLIC PANEL, COMPREHENSIVE Comments: PATIENT NOT FASTINGPERFORMED BY: [facility]CoEast [facility] CenterWdxxux2987 [facility] [id number] (64897) ALT (SGPT) 15 [iU]/L (Normal) Range: 0-32 [...] Glucose, Serum 95 mg/dL (Normal) Range: 65-99 30-Mnx-098399:13 URINE LOW CULTURE (RUDDY Comments: PATIENT NOT FASTINGPERFORMED BY: [facility] FinancialLifeB[facility] [id number] Information: SRC:UR [id number] COL COUNT) (92460) Result 1 ECV (Abnormal) Comments: Escherichia coli, [...] S Urine Final report Culture,Comprehensi (Abnormal) ve 20-Uic-181269:00 URINE LOW CULTURE-RUDDY COL Comments: PATIENT NOT FASTINGPERFORMED BY: [place] Financialblin [place] [id number] Information: SRC:UR [id number] COUNT (94484) Result 1 NG36 (Normal) Comments: No growth in 36 - 48 hours. Urine Culture,Comprehensive Final report (Normal) 97-Pka-826247:45 Urinalysis, Office (62784) UA - LEUKOCYTE ESTERASE Negative (Normal) UA - NITRITE Negative (Normal) URINE UROBILINGN RUDDY TIMED Normal mg/dL (Normal) UA - PROTEIN 30 mg/dL (Normal) UA - PH 6 (Abnormal) UA - BLOOD Negative (Normal) UA - SPECIFIC GRAVITY 1.030 (Abnormal) UA - KETONES 15 mg/dL (Abnormal) UA - BILIRUBIN Small (Normal) UA - GLUCOSE Negative (Normal) 28-Vnd-00886:51 Urinalysis, Office (66517) UA - LEUKOCYTE ESTERASE Negative (Normal) UA - NITRITE Negative (Normal) URINE UROBILINGN RUDDY TIMED Normal mg/dL (Normal) UA - PROTEIN Negative mg/dL (Normal) UA - PH 6 (Abnormal) UA - BLOOD Negative (Normal) UA - SPECIFIC GRAVITY 1.030 (Abnormal) UA - KETONES 15 mg/dL (Abnormal) UA - BILIRUBIN Negative (Normal) UA - GLUCOSE Negative (Normal) 21-Bdk-883579:47 URINE LOW CULTURE-RUDDY COL Comments: PATIENT NOT FASTINGPERFORMED BY: [facility]CoEast [facility] CenterZeqgxj9266 [facility] [id number] Information: SRC:UR [id number] COUNT (50856) Result 1 ECV (Normal) Comments: Escherichia coli, [...] S Urine Final report (Normal) Culture,Comprehensiv e 9-Fjq-312409:41 HgA1C , Office (64830) HgA1C , Office 5.7 % (Normal) Range: 4.6 - 7.1 03-Ioz-972025:59 Thin prep Pap Comments: Source.............Cervical;EndocervicalNo. of containers..01 CYTYC Thin Prep VialPATIENT NOT FASTINGPERFORMED BY: [facility] [address] [place] [id number] Information: [id number] (71814) Note: PAPSMR (Normal) Comments: The Pap smear [...] neopla sm of the cervixJulie Sukh Burrows, Firesetter (ASCP) 3-Afo-129254:06 LIPID PANEL (60802) Comments: PATIENT WAS FASTINGPERFORMED BY: [facility] Uhsnuz6581 [facility] [id number] LDL/HDL Ratio 2.5 {ratio_units} (Normal) Range: 0.0-3.2 LDL Cholesterol Calc 138 mg/dL (Abnormal) Range: 0-99 VLDL Cholesterol Nahid 20 mg/dL (Normal) Range: 5-40 HDL Cholesterol 55 mg/dL (Normal) Comments: According to ATP-III Guidelines, HDL-C >59 mg/dL is considered anegative risk factor for CHD. Triglycerides 99 mg/dL (Normal) Range: 0-149 Cholesterol, Total 213 mg/dL (Abnormal) Range: 100-199 7-Xfc-477444:06 MICROALBUMIN: CREATININE RATIO Comments: PATIENT WAS FASTINGPERFORMED BY: DadaJOE.comEast Orange VA Medical CenterOgxlkn8420 [facility] [id number] (21910) AND (78786) Microalb/Creat Ratio 11.9 {mg/g_creat} (Normal) Range: 0.0-30.0 Microalbumin, Urine 15.8 ug/mL (Normal) Range: 0.0-17.0 Creatinine, Urine 132.4 mg/dL (Normal) Range: 15.0-278.0 4-Cwu-795854:06 METABOLIC PANEL, COMPREHENSIVE Comments: PATIENT WAS FASTINGPERFORMED BY: [employer] Fuoqtr8451 [facility] [id number] (93005) ALT (SGPT) 22 [iU]/L (Normal) Range: 0-32 [...] Glucose, Serum 99 mg/dL (Normal) Range: 65-99 8-Afo-870909:06 VITAMIN B-12 (CYANOCOBALAMIN) Comments: PATIENT WAS FASTINGPERFORMED BY: [facility] [id number] (94568) Vitamin B12 1401 pg/mL (Abnormal) Range: 211-946 2-Bwh-105564:06 CBC (AUTO) (46198) Comments: PATIENT WAS FASTINGPERFORMED BY: [facility]6370 [facility] [id number] Platelets 242 {x10E3/uL} (Normal) Range: 155-379 RDW 13.5 % (Normal) Range: 12.3-15.4 MCHC 33.5 g/dL (Normal) Range: 31.5-35.7 MCH 30.4 pg (Normal) Range: 26.6-33.0 MCV 91 fL (Normal) Range: 79-97 Hematocrit 41.8 % (Normal) Range: 34.0-46.6 Hemoglobin 14.0 g/dL (Normal) Range: 11.1-15.9 RBC 4.60 {x10E6/uL} (Normal) Range: 3.77-5.28 WBC 4.6 {x10E3/uL} (Normal) Range: 3.4-10.8 3-Nqx-124399:06 Vitamin D Hydroxy (47896) Comments: PATIENT WAS FASTINGPERFORMED BY: [facility]6370 [facility] [id number] Vitamin D, 25-Hydroxy 58.4 ng/mL (Normal) Range: 30.0-100.0 Comments: Vitamin D deficiency has been defined by the [place] ofMedicine and an Endocrine Society practice guideline as alevel of serum 25-OH vitamin D less than 20 ng/mL (1,2).The Endocrine Society went on to further define vitamin Dinsufficiency as a level between 21 and 29 ng/mL (2).1. IOM ([place] of Medicine). 2010. Dietary reference intakes for calcium and D. [place]: The National Academies Press.2. Robinson MF, Keila [place], Bruce ROBLES, et al. Evaluation, treatment, and prevention of vitamin D deficiency: an Endocrine Society clinical practice guideline. JCEM. 2010; 96(7):1911-30. :48 HgA1C , Office (63315) HgA1C , Office 5.2 % (Normal) Range: 4.6 - 7.1 :52 URINE LOW CULTURE-RUDDY COL Comments: PATIENT NOT FASTINGPERFORMED BY: [facility] Hmjfgq3765 [place] [facility] [id number] Information: SRC:UR [id number] COUNT (38792) Result 1 MUG (Normal) Comments: Mixed urogenital kjwme165 Colonies/mL Urine Culture,Comprehensive Final report (Normal) :53 Urinalysis, Office (51091) UA - BILIRUBIN Negative (Normal) UA - [...] performed. Images were obtained from T1 to [id number]. Sagittal and coronal images were reconstruc anum. [...] Saldaña M.D.February 10, 2013 at 2:48:17 PM [id number] Signed GP/GP If you are the referring physician and would like to consult with [facility] who provided this interpretation, please contact José Miguel Sheikh at [phone]. If this radiologist is unavailable, youwill be directed to another radiologist to assist. If you are a zenon ent with a question regarding this report, pleasecontactyour referring physician directly. Professional Interpretation Provided By: [place], Phone , These documents con tain legally [...] Rutherford M.D.February 10, 2013 at 4:25:07 PM [id number] Signed DN/DN If you are the referring physician and would like t o consult with theradiologist who provided this interpretation, please contact Court Lund M.D. at [phone]. If this radiologist is unavailable, youwillbe directed to another radiologist to [facility]. If you are a patient with a question regarding this report, pleasecontactyour referring physician directly. Professional Interpretation Provided By: O[place]key, Phone ,Fax These documents contain legally protected [...] on 02/10/131627 Sign by: COURT RUTHERFORD MD 80-[id number] BRAIN/HEAD WITHOUT CONTRAST Radiology Report See Note [...] Saldaña M.D.January 23, 2013 at 3:28:07 PM [id number] Signed GP/GP If you are the referring [facility] and would like to consult with theradiologist who provided this interpretation, please contact José Miguel Sheikh at [phone]. If this radiologist is unavailable, youwill be directed to another radiologist to assist. If you are a patient with a question regarding this report, pleasecontactyour referring physician directly. Professional Interpretation Provided By: [employer], Phone , These documents contain legally protected [...] Michael METZ,Corey on 1531 Sign by: Michael METZ,Coery [id number] THORACIC SPINE 3 VIEWS Radiology Report See [...] Saldaña M.D.January 23, 2013 at 3:37:41 PM [id number] Signed GP/GP If you are the referring physician and would l elizabeth to consult with theradiologist who provided this interpretation, please contact José Miguel Sheikh at [phone]. If this radiologist is unavailable, youwill be directed to another radiologis t to assist. If you are a patient with a question regarding this report, pleasecontactyour referring physician directly. Professional Interpretation Provided By: [employer], Phone ,Fax These documents contain legally protected [...] Microscopic Examination Comments: PATIENT WAS FASTINGPERFORMED BY: [id number] [id number] Bacteria Few (Normal) Mucus Threads Present (Normal) Epithelial Cells (non renal) 0-10 {/hpf} (Normal) Range: 0 - 10 RBC 0-3 {/hpf} (Normal) Range: 0 - 3 WBC 0-5 {/hpf} (Normal) Range: 0 - 5 :11 URINALYSIS, W/ MICRO ([id number]) Comments: PATIENT WAS FASTINGPERFORMED BY: [employer] [id number] [id number] Microscopic Examination See below: (Normal) Microscopic Examination MICRON (Normal) Comments: Microscopic follows if indicated. Nitrite, Urine Negative (Normal) Urobilinogen,Semi-Qn 0.2 mg/dL (Normal) Range: 0.0-1.9 Bilirubin Negative (Normal) Occult Blood Negative (Normal) Ketones Negative (Normal) Glucose Negative (Normal) Protein Negative (Normal) WBC Esterase Negative (Normal) Appearance Clear (Normal) Urine-Color Yellow (Normal) pH 6.0 (Normal) Range: 5.0-7.5 Specific [place] 1.019 (Normal) Range: 1.005-1.030 :11 METABOLIC PANEL, Comments: PATIENT WAS FASTINGPERFORMED BY: [employer] Rtllni3080 [facility] [id number] Information: [id number] COMPREHENSIVE (31350) ALT (SGPT) 18 [iU]/L (Normal) Range: 0-32 [...] B-12 (CYANOCOBALAMIN) Comments: PATIENT WAS FASTINGPERFORMED BY: Yebol [facility] Pcuesb5467 [address] [facility] [place] [id number] (65021) Vitamin B12 314 pg/mL (Normal) Range: 211-946 :11 TSH (11906) Comments: PATIENT WAS FASTINGPERFORMED BY: Yebol [facility] Xarcwt5628 Bethea RoadDublin [place] [id number] TSH 0.679 {uIU/mL} (Normal) Range: 0.450-4.500 :11 Vitamin D Hydroxy (65399) Comments: PATIENT WAS FASTINGPERFORMED BY: [facility]6370 [address] [facility] [id number] Vitamin D, 25-Hydroxy 69.4 ng/mL (Normal) Range: 30.0-100.0 Comments: Vitamin D deficiency has been defined by the [place] ofMedicine and an Endocrine Society practice guideline as alevel of serum 25-OH vitamin D less than 20 ng/mL (1,2).The Endocrine Society went on to further define vitamin Dinsufficiency as a level between 21 and 29 ng/mL (2).1. IOM ([place] of Medicine). 2010. Dietary reference intakes for calcium and D. [place]: The National Academies Press.2. Robinson MF, Keila AGUERO, Bruce ROBLES, et al. Evaluation, treatment, and prevention of vitamin D deficiency: an Endocrine Society clinical practice guideline. JCEM. 2010; 96(7):1911-30. :11 LIPID PANEL (38255) Comments: PATIENT WAS FASTINGPERFORMED BY: [facility]6370 [address] [facility] [id number] LDL/HDL Ratio 2.7 {ratio_units} (Normal) Range: 0.0-3.2 LDL Cholesterol Calc 130 mg/dL (Abnormal) Range: 0-99 VLDL Cholesterol Nahid 12 mg/dL (Normal) Range: 5-40 HDL Cholesterol 48 mg/dL (Normal) Comments: According to ATP-III Guidelines, HDL-C >59 mg/dL is considered anegative risk factor for CHD. Triglycerides 59 mg/dL (Normal) Range: 0-149 Cholesterol, Total 190 mg/dL (Normal) Range: 100-199 :33 EBV Panel (82490) Comments: PATIENT NOT FASTINGPERFORMED BY: [facility]6370 [facility] [id number] Interpretation: SPRCS (Normal) Comments: EBV Interpretation Chart [...] <0.9 Equivocal 0.9 - 1.0 Positive >1.0 79-Xzi-01817:33 CBC WITH MANUAL DIFF Comments: PATIENT NOT FASTINGPERFORMED BY: [facility] Zkolep6340 [facility] [id number] Information: [id number] (84869) Immature Grans (Abs) 0.0 {x10E3/uL} (Normal) Range: [...] 3.77-5.28 WBC 5.3 {x10E3/uL} (Normal) Range: 4.0-10.5 25-Kbv-15438:06 BILAT SCRN DIGITAL & CAD Radiology Report [...] Saldaña M.D.July 30, 2012 at 8:47:07 AM [phone] Signed GP/GP If you are the referring physician and would like to consult with mariel hurd who provided this interpretation, please contact José Miguel Sheikh at [phone]. If this radiologist is unavailable, youwill be directed to another radiologist to assist. If you are a pa tient with a question regarding this report, pleasecontactyour referring physician directly. Professional Interpretation Provided By: Oyokey, Phone , These documents c ontain legally [...] on 07/30/1258 Sign by: Corey Saldaña MD 72-Rar-926198:10 URINE LOW CULTURE-IDENTIFICATN Comments: PATIENT NOT FASTINGPERFORMED BY: [facility]CoEast [facility] CenterIhwcbm1343 [facility] [id number] Information: [id number] (46313) Antimicrobial MIHEAD (Normal) Comments: S = Susceptible; [...] primarily for treating urinary tract infections. (CLSI, J669-L55,2009) Urine Final report (Normal) Culture,Comprehensive 48-Yzv-261418:54 Urinalysis, Office (79621) UA - BILIRUBIN Negative (Normal) UA - BLOOD Negative (Normal) UA - GLUCOSE Negative (Normal) UA - KETONES Negative mg/dL (Normal) UA - LEUKOCYTE ESTERASE Trace (Normal) UA - NITRITE Negative (Normal) UA - PH 7.0 (Normal) UA - PROTEIN Negative mg/dL (Normal) UA - SPECIFIC GRAVITY 1.025 (Normal) URINE UROBILINGN RUDDY TIMED Normal mg/dL (Normal) 14-Ctv-53275:05 DEXA BONE DENSITY STUDY () Radiology Report [...] is considered osteoporotic, as outlined above, according toWst. elizabeth hospital Health Organization (WHO) carmelo olson. Fracture [...] Saldaña M.D.May 06, 2012 at 1:38:17 PM [phone] Signed GP/GP If you are the referring physicia n and would like to consult with theradiologist who provided this interpretation, please contact José Miguel Sheikh at [phone]. If this radiologist is unavailable, youwill be directed to [facility] radiologist to assist. If you are a patient with a question regarding this report, pleasecontactyour referring physician directly. Professional Interpretation Provided By: Oyokey, Phone , These documents contain legally protected [...] 2 1346 Sign by: Corey Saldaña MD 86-Dht-388731:18 L/S SPINE,MIN 4 VIEWS Radiology Report See [...] EDTElectronically Signed GP/GP Professional Interpretation Provided By: [facility], , To consult with a radiologist regarding this report, please call our [id number] line @ Dictated on 01/09/12 1614 by Ninfa Saldaña MDranscribed on 01/10/121940 by ITS IMPORTSign by Corey Saldaña MD on 01/10/121941 Sign by: Corey Saldaña MD 6-Dpd-109375:36 METABOLIC PANEL, COMPREHENSIVE Comments: PATIENT WAS FASTINGPERFORMED BY: [facility]CoEast [facility] CenterKyrxof0132 [facility] [id number] (14809) ALT (SGPT) 21 [iU]/L (Normal) Range: 0-40 [...] mg/dL (Normal) Range: 65-99 :36 LIPID PANEL (11189) Comments: PATIENT WAS FASTINGPERFORMED BY: [facility] Zqisrk2743 [facility] [id number] LDL/HDL Ratio 2.5 {ratio_units} (Normal) Range: 0.0-3.2 LDL Cholesterol Calc 118 mg/dL (Abnormal) Range: 0-99 VLDL Cholesterol Nahid 15 mg/dL (Normal) Range: 5-40 HDL Cholesterol 48 mg/dL (Normal) Comments: According to ATP-III Guidelines, HDL-C >59 mg/dL is considered anegative risk factor for CHD. Triglycerides 76 mg/dL (Normal) Range: 0-149 Cholesterol, Total 181 mg/dL (Normal) Range: 100-199 4-Cdx-390626:36 Vitamin D Hydroxy (10835) Comments: PATIENT WAS FASTINGPERFORMED BY: [facility] Ykzxvk4360 [facility] [id number] Vitamin D, 25-Hydroxy 36.0 ng/mL (Normal) Range: 30.0-100.0 Comments: Vitamin D deficiency has been defined by the [place] ofHol[facility] Health Systemcine and an Endocrine Society practice guideline as alevel of serum 25-OH vitamin D less than 20 ng/mL (1,2).The Endocrine Society went on to further define vitamin Dinsufficiency as a level between 21 and 29 ng/mL (2).1. IOM ([place] of Medicine). 2010. Dietary reference intakes for calcium and D. [place]: The National Academies Press.2. Robinson MF, Keila AGUERO, Bruce ROBLES, et al. Evaluation, treatment, and prevention of vitamin D deficiency: an Endocrine Society clinical practice guideline. JCEM. 2010; 96(7):1911-30. 7-Jjl-058618:36 CBC WITH MANUAL DIFF Comments: PATIENT WAS FASTINGPERFORMED BY: [facility] Otbakr1936 [facility] [id number] Information: [id number] (81975) Immature Grans (Abs) 0.0 {x10E3/uL} (Normal) Range: [...] 3.80-5.10 WBC 4.3 {x10E3/uL} (Normal) Range: 4.0-10.5 94-Ymy-07039:35 BILAT SCRN DIGITAL & CAD Radiology Report [...] radiologist regarding this report, please call our [id number] line @ Dictated on 07/25/11 1844 by Michael METZ, Ninfaranscribed on 07/27/11 1144 by ITS IMPORTSign by Corey Saldaña MD on 07/27/11 1145 Sign by: Corey Saldaña MD 12-Bas-482542:59 URINE LOW CULTURE-IDENTIFICATN Comments: PERFORMED BY: [facility] Ojsfgs1896 [facility] [id number] Information: SRC: URINE (05628) Result 1 NG36 (Normal) Comments: No growth in 36 - 48 hours. Urine Culture,Comprehensive Final report (Normal) 88-Hou-193168:31 URINE LOW CULTURE-RUDDY COL Comments: PATIENT NOT FASTINGPERFORMED BY: [facility] Gnusjd4753 [facility] [id number] Information: SRC: URINE COUNT (37515) Antimicrobial MIHEAD (Normal) Comments: S = Susceptible; [...] primarily for treating urinary tract infections. (CLSI, L852-O23,2009) Urine Final report (Normal) Culture,Comprehensive 26-Ukz-439847:06 Urinalysis, Office (63637) UA - BILIRUBIN Negative (Normal) UA - BLOOD Non Hemolyzed Moderate (Normal) UA - GLUCOSE Negative (Normal) UA - KETONES Negative mg/dL (Normal) UA - LEUKOCYTE ESTERASE Small (Normal) UA - NITRITE Negative (Normal) UA - PH 6.0 (Normal) UA - PROTEIN Negative mg/dL (Normal) UA - SPECIFIC GRAVITY 1.025 (Normal) URINE UROBILINGN RUDDY TIMED Normal mg/dL (Normal) 6-Biq-030990:26 URINE LOW CULTURE-RUDDY COL Comments: PATIENT NOT FASTINGPERFORMED BY: [facility] Pxtnzh2234 [place] [id number] Information: SRC: URINE COUNT (66836) Result 1 ECV (Normal) Comments: Escherichia coli, [...] STrimethoprim/Sulfa S Urine Final report (Normal) Culture,Comprehensive 6-Vwo-241024:03 Urinalysis, Office (69471) UA - BILIRUBIN Negative (Normal) UA - BLOOD Hemolyzed Small (Normal) UA - GLUCOSE Negative (Normal) UA - KETONES Negative mg/dL (Normal) UA - LEUKOCYTE ESTERASE Negative (Normal) UA - NITRITE Negative (Normal) UA - PH 6.0 (Normal) UA - PROTEIN Negative mg/dL (Normal) UA - SPECIFIC GRAVITY 1.025 (Normal) URINE UROBILINGN RUDDY TIMED Normal mg/dL (Normal) 78-Sou-35953:55 Urinalysis, Office (35939) UA - LEUKOCYTE ESTERASE Small (Normal) UA - NITRITE Negative (Normal) URINE UROBILINGN RUDDY TIMED Normal mg/dL (Normal) UA - PROTEIN Negative mg/dL (Normal) UA - PH 6.0 (Normal) UA - BLOOD Hemolyzed Trace (Normal) UA - SPECIFIC GRAVITY 1.025 (Normal) UA - KETONES Negative mg/dL (Normal) UA - BILIRUBIN Negative (Normal) UA - GLUCOSE Negative (Normal) 5-Oqw-676552:23 DEXA BONE DENSITY STUDY (HP) Radiology Report See Note Comments: Exam Number: [id number] CLINICAL:This is a 64-year-old female patient with history of osteopenia. EXAMINATION:DUAL ENERGY X-RAY ABSORPTIOMETRY / DEXA. TECHNIQUE:Bone Density Measurements (BMD) of lumbar (Normal) spine and bilateral hipswere obtained using a OneEyeAnt scanner.. COMPARISON:Comparison is made with prior examination [...] http://www.nof.org Reported By: COREY SALDAÑA 21-Dec-19 METHYLM 334067 9070 nmol/L Range: 73-376 1017:48 (Abnormal) Comments: The reference range for methylmalonic acid has been set at+3sd above the mean for healthy blood bank donors. In theclinical assessment of patients with megaloblastic anemiasa cutoff of +3sd provides gre ater specificity in thediagnosis of the vitamin deficiency states, despite thesacrifice of some sensitivity. 11-May-20 VIT D,25 84108 38.5 ng/mL Range: 32.0-100.0 1017:48 (Normal) Comments: Recent studies consider the lower limit of 32.0 ng/mL to marquita threshold for optimal health.Carlos HERNANDEZ. J Nutr. 2004;135(2):317- 22.Performed at: - [facility] [address] [id number] Director: Quincy Merida MDPerformed at: [facility] LabCo[address] [id number] Director: Britt Sanchez MD 2-Xyb-212549:24 CBCD,SMEAR DIFF RED CELL MORPH SeeNote {NORMAL} [...] 11.6-14.6 WBC 5.0 K/mm3 (Normal) Range: 4.4-11.0 1-Kos-992169:23 VITAMIN B12 485 pg/mL (Normal) Range: 254-1320 8-Tnc-590678:23 TSH 0.60 {uIU/mL} (Normal) Range: 0.358-3.74 4-Fkm-400664:23 LIPID CHOL 203 mg/dL (Abnormal) Comments: <200 mg/dL Mmjzzfhxv674-506 mg/dL Borderline>240 mg/dL High Risk HDL 49 mg/dL (Normal) Comments: Reference RangeHDL <40 mg/dL Low HDL CholesterolHDL >or= 60 mg/dL High HDL Cholesterol LDL 130 mg/dL (Normal) Range: 0-130 TRIG 120 mg/dL (Normal) Comments: Serum Triglycerides Reference IntervalNormal <150 mg/dLBorderline high 150 - 199 mg/dLHigh 200 - 499 mg/ dLVery High > or = 500 mg/dL VLDL 24 mg/dL (Normal) Range: 5-40 0-Bod-718955:23 COMP METABOLIC CO2 29.0 mmol/L (Normal) Range: [...] (Normal) GLU 95 mg/dL (Normal) Range: 70-110 7-Vow-063581:21 BILAT SCRN DIGITAL & CAD Radiology Report See Note (Normal) Comments: Exam Number: [id number] MAMMOGRAM, BILATERAL SCREENING DIGITAL AND CAD HISTORYRoutine [...] werealso examined wit h computer-aided detection software ([employer].). Reported By: JOSHUA MCGEE M.D. 18-May-2009 VIT D,25 88957 81.6 ng/mL Range: 32.0-100.0 11:41 (Normal) Comments: Recent studies consider the lower limit of 32.0 ng/mL to marquita threshold for optimal health.Carlos HERNANDEZ. J Nutr. 2004;135(2):317- 22.Performed At: [facility]6[address] [place], [place] [id number] 36-Fvx-24935:59 COMP METABOLIC A/G 1.2 {RATIO} (Normal) Range: [...] VLDL 23 mg/dL (Normal) Range: 5-40 :59 PTH,WAEWRG90837 PTH,Intact 54 pg/mL (Normal) Range: 15-65 Comments: Performed At: [address] [id number] :59 VIT D,25 55849 145.0 ng/mL (Abnormal) Range: 32.0-100.0 Comments: Recent studies consider the lower limit of 32.0 ng/mL to marquita threshold for optimal health.Carlos HERNANDEZ. J Nutr. 2004;135(2):317-22. 2-Kuc-856806:42 RIBS UNIL 2V NO CXR Radiology Report See Note (Normal) Comments: Exam Number: [id number] RIGHT RIBS 4 VIEWS STATEMENTRight rib pain. [...] No pneumothorax. Reported By: DALLIN VALENZUELA M.D. 8-Mls-361143:39 CHEST, PA AND LATERAL Radiology Report See Note (Normal) Comments: Exam Number: [id number] CHEST PA AND LATERAL STATEMENTRib pain. COMPARISON [...] as described. Reported By: DALLIN VALENZUELA M.D. 4-Hys-108817:2 CA 9.2 mg/dL (Normal) Comments: ORDERED LIPID,LIVERDR.THANH ORDERED VITD,PTH,TSH,CALCIUM,LIPID ORDERED CALCIUM,PTH,SPEP,UPEP 6 Range: 8.5-10.1 3-Jqq-163757:26 LIPID Comments: ORDERED LIPID,LIVERDR.THANH ORDERED VITD,PTH,TSH,CALCIUM,LIPID ORDERED [...] mg/dL VLDL 11 mg/dL (Normal) Range: 5-40 2-Bks-059153:26 LIVER Comments: ORDERED LIPID,LIVERDR.THANH ORDERED VITD,PTH,TSH,CALCIUM,LIPID ORDERED CALCIUM,PTH,SPEP,UPEP ALB 3.7 g/dL (Normal) Range: 3.4-5.0 ALK P 59 U/L (Normal) Range: 50-136 ALT 34 U/L (Normal) Range: 30-65 AST 21 U/L (Normal) Range: 15-37 D BILI 0.07 mg/dL (Normal) Range: 0.00-0.30 T BILI 0.53 mg/dL (Normal) Range: 0.00-1.00 T PROT 6.8 g/dL (Normal) Range: 6.4-8.2 1-Yyy-972037:26 PROT.[id number] Comments: ORDERED LIPID,LIVERDR.FAST ORDERED VITD,PTH,TSH,CALCIUM,LIPID ORDERED CALCIUM,PTH,SPEP,UPEP ALBUMIN,UR 34.4 % (Normal) SLLFK-8-RWIL,U 2.8 % (Normal) NKRNT-2-WNND,U 11.5 % (Normal) BETA GLOB,U 30.6 % (Normal) GAMMA GLOB,U 20.7 % (Normal) M-SPIKE,U SeeNote % (Normal) Comments: Result: Not Observed NOTE Comment (Normal) Comments: Protein electrophoresis scan will follow via mail orcourier. PROTEIN,UR 20.0 mg/dL (Abnormal) Range: 0.0-15.0 5-Vyu-137888:26 PTH,[id number] Comments: ORDERED LIPID,LIVERDR.FAST ORDERED VITD,PTH,TSH,CALCIUM,LIPID ORDERED CALCIUM,PTH,SPEP,UPEP PTH,Intact 71 pg/mL (Abnormal) Range: 15-65 Comments: Performed At: [place] [id number] [place], [place] [id number] 8-Qtu-105372:26 SPE [id number] Comments: ORDERED LIPID,LIVERDR.FAST ORDERED VITD,PTH,TSH,CALCIUM,LIPID ORDERED CALCIUM,PTH,SPEP,UPEP [...] orcourier. PROTEIN,TOTAL 6.6 g/dL (Normal) Range: 6.0-8.5 0-Clv-979285:26 TSH 0.65 {uIU/mL} (Normal) Comments: ORDERED LIPID,LIVERDR.FAST ORDERED VITD,PTH,TSH,CALCIUM,LIPIDDR ORDERED CALCIUM,PTH,SPEP,UPEP Range: 0.34-4.82 :26 VIT D,25 92333 31.0 ng/mL (Abnormal) Comments: ORDERED LIPID,LIVERDR.FAST ORDERED VITD,PTH,TSH,CALCIUM,LIPIDDR ORDERED CALCIUM,PTH,SPEP,UPEP Range: 32.0-100.0 Comments: Recent studies consider the lower limit of 32.0 ng/mL to marquita threshold for optimal health.Carlos HERNANDEZ. J Nutr. 2004;135(2):317-22. 48-Qdj-512639:15 LQD PAP [id number] Comments: CYTOLOGY INFORMATION:- CLINICAL INFORMATION: - DATE LMP/MENOPAUSE: LMP- COLLECTION VIAL: Thin Prep Vial- REPROGRAPHICS TECHNICIAN SOURCE: CERVICAL/ENDOCERVICAL- COLLECTION TECHNIQUE: BRUSH/SPATULA ADEQ Comment [...] HPV testing was performed. .Performed At: [address] [id number] [facility] Comment (Normal) Comments: The Pap smear is a screening test designed to aid in thedetection of premalignant and malignant conditions of theuterine cervix. It is not a diagnostic procedure andshould not be used as the sole means of detecting cervicalcancer. Both false-positive and false-negative reports dooccur. . PERFORM Comment (Normal) Comments: Jossue Cantu, Firesetter ([facility]) 08-Mou-586726:23 UNILAT LT DIAG DIGITAL & CAD Radiology Report See Note (Normal) Comments: Exam Number: [id number] LEFT DIAGNOSTIC DIGITAL MAMMOGRAM CLINICAL INFORMATIONAbnormal mammogram. [...] mammograms werealso examined with computer-aided detection software ([employer] Reported By: DALLIN SAN M.D. 50-Zkk-82380:05 BILAT [facility] DIGITAL & CAD Radiology Report See Note (Normal) Comments: Exam Number: [id number] BILATERAL DIGITAL SCREENING MAMMOGRAM COMPARISONApril 2005. MLO [...] The mammogramswere also examined with computer-aided detection software([employer].). Reported By: YORDAN HILL M.D. :05 SPINE,LUMBAR (ROUTINE) Radiology Report See Note (Normal) Comments: Exam Number: [id number] MRI LUMBAR SPINE REASON FOR EXAMPersistent low [...] Report See Note (Normal) Comments: Exam Number: [id number] DEXA BONE DENSITY STUDY Done for osteopenia, [...] L5 onS1. Reported By: YORDAN HILL M.D. 1-Gvq-627964:13 Urinalysis, Office (26017) UA - BILIRUBIN Negative (Normal) UA - [...] PHOS 3.1 mg/dL (Normal) Range: 2.5-4.9 :52 PTH,ESBNYR88244 PTH,Intact 77 pg/mL (Abnormal) Range: 12-65 :52 VITD 1,25 35942 55.1 pg/mL (Normal) Range: 15.9-55.6 Comments: Performed At: [address] [id number] At: Lab[address] [id number] 88-Zyw-713695:17 CHEST, PA AND LATERAL (MT) Radiology Report See Note (Normal) Comments: Exam Number: [id number] PA AND LATERAL CHEST HISTORYFollow up pneumothorax. [...] T PROT 6.6 g/dL (Normal) Range: 6.4-8.2 58-Pzb-802178:40 CULTURE, URINE URINE CULTURE See Note {CFU/mL} (Normal) Comments: COLONY COUNT 1000-10,000 ORGANISM 1: MIXED GRAM POS & NEG ORGANISMS :39 L/S SPINE,MIN 4 VIEWS (MT) Radiology Report See Note (Normal) Comments: Exam Number: [id number] FIVE VIEW LUMBAR SPINE, AP, LATERAL, BOTH OBLIQUES, AND A HVVMJ-OSQUH0-P7. HISTORYBeing done for low back pain. FINDINGSThere [...] correlation needed. Reported By: BRETT REYNA M.D. 96-Bfl-239169:23 BMP BUN 8 mg/dL (Normal) Range: 7-18 [...] 6676 11 {IU/mL} (Normal) Range: 0-34 2:40 35-Zbp-836916:40 PTH,MDKLHZ42954 PTH,Intact 45 pg/mL (Normal) Range: 12-65 :40 VIT D,25 83454 88.1 ng/mL (Normal) Range: 32.0-100.0 Comments: Recent studies consider the lower limit of 32.0 ng/mL to marquita threshold for optimal health.Carlos BW. J Nutr. 2004;135(2):317-22. :40 VITD 1,25 83481 73.8 pg/mL (Abnormal) Range: 15.9-55.6 Comments: Performed At: [address] [id number] At: [facility]yes[facility] Sdxrrg[address] [place], [place] [id number] 78-Njt-154382:39 LIPID CHOL 182 mg/dL (Normal) Comments: <200 [...] 7.6 g/dL (Normal) Range: 6.4-8.2 :34 CALCULI 270898 CA OXAL DIHYDR 35 % (Normal) CA OXAL MONOHYD 15 % (Normal) CA PHOSPHATE 50 % (Normal) COLOR Archuleta (Normal) COMMENT Comment (Normal) Comments: Physician questions regarding Calculi Analysis contactLabCo at: [phone].Performed At: [address] [id number] Comment Comment (Normal) Comments: Percentage (Represents the [...] 3.5-5.1 NA 137 mmol/L (Normal) Range: 136-145 93-Kpj-942114:25 CBC Comments: COMMENTS: PAT FOR OR 01/01/07 [...] GLU 2 HR GLU GTT-2 HOUR from 0504:X27287F. Range: 70-120 :50 GLU GTT-1 HOUR 176 mg/dL (Abnormal) Comments: 2HR GTT GLU 1 HR GLU GTT-1 HOUR from 0504:V70637Q. Range: 120-170 :24 GLU GTT-30 min. 145 mg/dL (Normal) Comments: 2HR GTT GLU 1/2 HR GLU GTT-30 min. from 0504:J42167F. Range: 110-170 :50 GLU GTT-FASTING 73 mg/dL (Normal) Comments: 2HR GTT FASTING GLU GTT-FASTING from 0504:R98915J. Range: 70-110 Comments: GLUCOSE TOLERANCE TEST Reference Interval Non- Adults Fasting 70 - 110 30 minutes 110 - 170 1 hour 120 - 170 2 hour 70 - 120 3 hour 70 - 110 4 hour 70 - 110 5 hour 70 - 110 63-Kca-057040:36 CULTURE, URINE URINE CULTURE See Note {CFU/mL} [...] $$$ >=256 R TRIMETHOPRIM/SULFAMETHOXAZ $$ <=10 S 72-Can-866422:36 ROUTINE UA BILIRUBIN URINE SeeNote (Normal) Comments: [...] 0.2 EU/dl (Normal) Range: 0.2 - 1.0 01-Gyo-235457:00 CULTURE, URINE URINE CULTURE See Note {CFU/mL} [...] $$ <=10 S VANCOMYCIN $$ 2 S 79-Ndt-762941:40 CULTURE, URINE URINE CULTURE See Note {CFU/mL} [...] NOWPrecautions*: NOT APPLICABLE 45 Range: 2.5-4.9 :45 PTH,YPOGVU56531 Comments: COMMENTS: NOWPrecautions*: NOT APPLICABLE PTH,Intact 31 pg/mL (Normal) Range: 12-65 Comments: Performed At: [address] [id number] 1-Tex-886361:30 CALCULI 082568 Comments: COMMENTS: STONE ANALYSISPrecautions*: NOT APPLICABLE CA OXAL DIHYDR 55 % (Normal) CA OXAL MONOHYD 10 % (Normal) CA PHOSPHATE 35 % (Normal) COLOR Archuleta (Normal) Comment Comment (Normal) Comments: Percentage (Represents the % composition) COMMENT Comment (Normal) Comments: Physician questions regarding Calculi Analysis contactLabCo at: [phone].Performed At: [address] [id number] NIDUS SeeNote (Normal) Comments: Result: No Nidus [...] T PROT 5.9 g/dL (Abnormal) Range: 6.4-8.2 3-Bqb-629732:00 COMPLETE UA Comments: COMMENTS: ROOM 9Precautions*: NOT [...] (Normal) Range: 0-5 Comments: Result: 0-5 SEEN 4-Ipw-760202:00 CULTURE, URINE Comments: COMMENTS: ROOM 9Precautions*: NOT [...] 3.5-5.1 NA 137 mmol/L (Normal) Range: 136-145 4-Qho-187148:20 CBCD Comments: Precautions*: NOT APPLICABLE BASO% 0.1 [...] 11.6-14.6 WBC 12.4 K/mm3 (Abnormal) Range: 4.4-11.0 0-Hxp-469403:20 COMPLETE UA Comments: Precautions*: NOT APPLICABLE BACTERIA [...] (Normal) Range: 0-5 Comments: Result: 0-5 SEEN 23-Npr-874303:52 Urinalysis, Office (46586) UA - BILIRUBIN Negative (Normal) UA - BLOOD Hemolyzed Large (Normal) UA - GLUCOSE Negative (Normal) UA - KETONES Negative mg/dL (Normal) UA - LEUKOCYTE ESTERASE Large (Normal) UA - NITRITE Positive (Normal) UA - PH 5.0 (Normal) UA - PROTEIN 30 mg/dL (Normal) UA - SPECIFIC GRAVITY 1.020 (Normal) URINE UROBILINGN RUDDY TIMED 2 mg/dL (Normal) 72-Cch-869435:30 CULTURE, URINE URINE CULTURE See Note {CFU/mL} [...] $$$ 128 R TRIMETHOPRIM/SULFAMETHOXAZ $$ <=10 S 13-Ejn-804840:15 MANDI-D 058227 MANDI-DIRECT 23 U/mL (Normal) Range: 0-99 Comments: Negative <100 Equivocal 100 - 120 Positive >120Performed At: [facility] Clinicstyesha JosephLqexhe[address] [place], [place] [id number] :15 B12/FOLATES 810 FOLATES,S 2013 > 24.0 [...] 5.6 K/mm3 (Normal) Range: 4.4-11.0 :15 CELIAC [id number] ANTIGLIADIN IGA <1 U/mL (Normal) Range: 0-4 [...] Fatigue Planned Observations CBC W/AUTO DIFF WBC (16380)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 On: 9-Oum-761659:36 Request MICROALBUMIN: CREATININE RATIO (00211) AND (52893)Indication: Abnormal glucose tolerance test On: 5-Nsp-018012:22 Request METABOLIC PANEL, COMPREHENSIVE ([id number])Indication: Abnormal glucose tolerance test On: :22 Request CALCIUM SERUM ([id number])Indication: Hypercalcemia On: :13 Request PARATHORMONE ([id number])Indication: Hypercalcemia On: :13 Request Calcium Serum ([id number])Indication: Hypercalcemia On: 16-Fzh-441192:07 Request METABOLIC PANEL, COMPREHENSIVE ([id number])Indication: Abnormal glucose tolerance test On: : Request VITAMIN B-12 (CYANOCOBALAMIN) ([id number])Indication: Vitamin B12 deficiency (dietary) anemia On: : Request MICROALBUMIN: CREATININE RATIO (93304) AND ([id number])Indication: Abnormal glucose tolerance test On: : Request LIPID PANEL ([id number])Indication: Other hyperlipidemia On: : Request Vitamin D Hydroxy (24296)Indication: Vitamin D deficiency, unspecified On: : Request CBC W/AUTO DIFF WBC (22305)Indication: Vitamin B12 deficiency (dietary) anemia On: :25 Request VITAMIN B-12 (CYANOCOBALAMIN) ([id number])Indication: Vitamin B12 deficiency (dietary) anemia On: :14 Request MICROALBUMIN: CREATININE RATIO (21822) AND (39710)Indication: Abnormal glucose tolerance test On: :14 Request HGB A1C (10233)Indication: Abnormal glucose tolerance test On: :14 Request CBC (AUTO) (60075)Indication: Calcium nephrolithiasis On: :13 Request Vitamin D Hydroxy (80526)Indication: Vitamin D deficiency, unspecified On: :13 Request LIPID PANEL (52198)Indication: Other hyperlipidemia On: :13 Request METABOLIC PANEL, COMPREHENSIVE (37807)Indication: Other hyperlipidemia On: :13 Request MICROALBUMIN: CREATININE RATIO (45974) AND (38133)Indication: Abnormal glucose tolerance test On: :32 Request Hemoglobin Glyclated (HGB A1C) (61431)Indication: Abnormal glucose tolerance test On: 81-Xpl-17875:32 Request METABOLIC PANEL, COMPREHENSIVE (54245)Indication: Other hyperlipidemia On: :32 Request LIPID PANEL (94683)Indication: Other hyperlipidemia On: :31 Request VITAMIN B-12 (CYANOCOBALAMIN) (59289)Indication: Vitamin B12 deficiency (dietary) anemia On: :31 Request CBC W/AUTO DIFF WBC (32771)Indication: Vitamin B12 deficiency (dietary) anemia On: :31 Request VITAMIN B-12 (CYANOCOBALAMIN) ([id number])Indication: Vitamin B12 deficiency (dietary) anemia On: :22 Request LIPID PANEL (28033)Indication: Other hyperlipidemia On: :22 Request METABOLIC PANEL, COMPREHENSIVE (41155)Indication: Abnormal glucose tolerance test On: 18-Iyr-065843:21 Request URINE LOW CULTURE-RUDDY COL COUNT (00179)Indication: Dysuria (Renamed from Difficult or painful urination) On: 91-Hdx-073675:54 Request CBC, PLATELETS & AUT DIFF (34622)Indication: Vitamin B12 deficiency (dietary) anemia On: 2-Sco-588549:42 Request VITAMIN B-12 (CYANOCOBALAMIN) (33903)Indication: Vitamin B12 deficiency (dietary) anemia On: 8-Yhe-846122:42 Request Vitamin D Hydroxy (53441)Indication: Vitamin D deficiency, unspecified On: 1-Wbb-424695:41 Request LIPID PANEL (19526)Indication: Other hyperlipidemia On: 2-Hcw-258545:41 Request METABOLIC PANEL, COMPREHENSIVE (90762)Indication: Other hyperlipidemia On: 1-Iuk-965903:41 Request METABOLIC PANEL, COMPREHENSIVE (50582)Indication: Osteoporosis (Renamed from OP (osteoporosis)) On: 86-Qaq-265502:41 Request UPEP (77013)Indication: Osteoporosis (Renamed from OP (osteoporosis)) On: 08-Tet-728985:28 Request SPEP ([id number])Indication: Osteoporosis (Renamed from OP (osteoporosis)) On: 82-Xao-204083:28 Request TSH ([id number])Indication: Fluid retention On: 58-Osd-888430:43 Request Vitamin D Hydroxy (92705)Indication: Vitamin D deficiency, unspecified On: :29 Request VITAMIN B-12 (CYANOCOBALAMIN) (72034)Indication: Vitamin B12 deficiency (dietary) anemia On: :29 Request CBC W/AUTO DIFF WBC (27557)Indication: Vitamin B12 deficiency (dietary) anemia On: :29 Request METABOLIC PANEL, COMPREHENSIVE (54323)Indication: Fluid retention On: :29 Request URINE LOW CULTURE (RUDDY COL COUNT) (39617)Indication: Hematuria On: 66-Eap-956206:11 Request URINE LOW CULTURE-RUDDY COL COUNT (08411)Indication: Hematuria On: :56 Request URINALYSIS, W/ MICRO (23152)Indication: Hematuria On: :54 Request Parathyroid Hormone-related Peptide (PTH-rP) (68952)Indication: Fatigue On: 24-Kpw-800961:17 Request VITAMIN B-12 (CYANOCOBALAMIN) (60325)Indication: Vitamin B12 deficiency (dietary) anemia On: 2-Mhe-181059:03 Request METABOLIC PANEL, COMPREHENSIVE (65583)Indication: Abnormal glucose tolerance test On: 9-Fbt-411945:03 Request CBC WITH MANUAL DIFF (09953)Indication: Vitamin B12 deficiency (dietary) anemia On: 9-Ojn-211499:02 Request Vitamin D Hydroxy (81007)Indication: Vitamin D deficiency, unspecified On: 0-Xog-871973:02 Request LIPID PANEL (41872)Indication: Other hyperlipidemia On: :02 Request CREATININE BLOOD (71973)Indication: Other hyperlipidemia On: 9-Ojp-521838:47 Request Vitamin D Hydroxy (26161)Indication: Vitamin D deficiency, unspecified On: :37 Request VITAMIN B-12 (CYANOCOBALAMIN) (84746)Indication: Vitamin B12 deficiency (dietary) anemia On: :37 Request METABOLIC PANEL, COMPREHENSIVE (15802)Indication: Osteopenia On: :28 Request TSH ([id number])Indication: Osteopenia On: :28 Request CBC WITH MANUAL DIFF ([id number])Indication: Vitamin B12 deficiency (dietary) anemia On: :27 Request VITAMIN B-12 (CYANOCOBALAMIN) (20953)Indication: Vitamin B12 deficiency (dietary) anemia On: : Request LIPID PANEL (33387)Indication: Other and unspecified hyperlipidemia On: : Request Vitamin D Hydroxy (23837)Indication: Vitamin D deficiency, unspecified On: : Request METABOLIC PANEL, COMPREHENSIVE (88983)Indication: Palpitations On: :32 Request CBC WITH MANUAL DIFF ([id number])Indication: Vitamin B12 deficiency (dietary) anemia On: :31 Request Vitamin D Hydroxy (70299)Indication: Vitamin D deficiency, unspecified On: : Request LIPID PANEL (58660)Indication: Other hyperlipidemia On: : Request VITAMIN B-12 (CYANOCOBALAMIN) (21227)Indication: Vitamin B12 deficiency (dietary) anemia On: : Request URINE LOW CULTURE-IDENTIFICATN (43857)Indication: recurrent uti On: : Request Urinalysis, Office (35939)Indication: Cystitis, acute On: :57 Request VITAMIN B-12 (CYANOCOBALAMIN) (64122)Indication: Vitamin D deficiency, unspecified On: :30 Request CALCIFEDIOL (03786)Indication: Vitamin D deficiency, unspecified On: :30 Request URINALYSIS (83781)Indication: Vitamin D deficiency, unspecified On: :30 Request TSH (THYROID STIMULATING HORMONE) (30076)Indication: Vitamin D deficiency, unspecified On: :30 Request CBC, PLATELETS & AUT DIFF (45868)Indication: Vitamin D deficiency, unspecified On: :30 Request METABOLIC PANEL, COMPREHENSIVE (21459)Indication: Vitamin D deficiency, unspecified On: :30 Request LIPID PANEL (12127)Indication: Other hyperlipidemia On: :30 Request URINALYSIS W/O MICRO (07158)Indication: Low back pain On: :31 Request Creatine (09399)Indication: Low back pain On: 45-Ile-955794:13 Request BUN (Blood Urea Nitrogen) (38387)Indication: Low back pain On: 57-Cqj-309084:13 Request Creatine (17571)Indication: Low back pain On: 19-Qik-733227:42 Request Creatine (58271)Indication: Unspecified Diagnosis On: 57-Hmm-257412:34 Request LIPID PANEL (26647)Indication: Other and unspecified hyperlipidemia On: 71-Doq-314943:22 Request HEPATIC FUNCTION PANEL (02081)Indication: Other and unspecified hyperlipidemia On: 24-Iyf-390890:22 Request Vitamin D Hydroxy (08627)Indication: Vitamin D deficiency, unspecified On: 49-Aze-968077:11 Request VITAMIN B-12 (CYANOCOBALAMIN) (36347)Indication: methylmalonic acid elevatin On: 48-Hzy-363233:11 Request Methylmalonic acid, serum 39631Icclvutzhn: Fatigue On: 38-Pvl-863215:08 Request VITAMIN B-12 (CYANOCOBALAMIN) (27761)Indication: Fatigue On: 55-Nkq-020168:08 Request TSH ([id number])Indication: Palpitations On: 20-Wys-937827:06 Request METABOLIC PANEL, COMPREHENSIVE (98198)Indication: Palpitations On: 73-Crf-874244:06 Request CBC WITH MANUAL DIFF (93473)Indication: Palpitations On: 83-Qvn-176729:06 Request LIPID PANEL (76655)Indication: Other and unspecified hyperlipidemia On: 59-Lzb-848772:05 Request Vitamin D Hydroxy (24013)Indication: Osteopenia On: 36-Uzu-897458:05 Request Vitamin D Hydroxy (52213)Indication: Vitamin D deficiency, unspecified On: 3-Kym-562781:10 Request METABOLIC PANEL, COMPREHENSIVE (07765)Indication: Other and unspecified hyperlipidemia On: :26 Request LIPID PANEL (85369)Indication: Other and unspecified hyperlipidemia On: :26 Request PARATHORMONE (12954)Indication: Osteopenia On: 45-Esh-905454:15 Request Vitamin D Hydroxy (94447)Indication: Vitamin D deficiency, unspecified On: 10-Cbn-878331:15 Request LIPID PANEL (69173)Indication: Other and unspecified hyperlipidemia On: 41-Mna-762182:01 Request CALCIUM SERUM (88891)Indication: Osteopenia On: 45-Xkq-851290:00 Request TSH (33721)Indication: Osteopenia On: 25-Vtd-759313:00 Request PARATHORMONE (56676)Indication: Osteopenia On: 25-Xvo-846846:00 Request Vitamin D Hydroxy (14170)Indication: Osteopenia On: 57-Lrr-074146:58 Request FECAL OCCULT HGB ASSAY- tubes sent home (74971)Indication: Well woman exam with routine gynecological exam On: 30-Ost-088353:39 Request OCCULT BLOOD FECES SCREEN- card done in office (55473)Indication: Well woman exam with routine gynecological exam On: :39 Request Thin prep Pap (33509)Indication: Well woman exam with routine gynecological exam On: 06-Vsf-906995:39 Request Comments: vaginal cuff LIPID PANEL (39530)Indication: Other and unspecified hyperlipidemia On: 3-Kkc-917256:58 Request HEPATIC FUNCTION PANEL (09514)Indication: Other and unspecified hyperlipidemia On: 9-Tsf-412859:58 Request CALCIUM SERUM (98281)Indication: Osteopenia On: 5-Tcs-554820:58 Request PHOSPHORUS (49358)Indication: Osteopenia On: 9-Psu-215242:58 Request PARATHORMONE (16145)Indication: Osteopenia On: 3-Khd-879193:58 Request VITAMIN D, 1, 25-DIHYDROXY (77744)Indication: Osteopenia On: 3-Jzg-321329:58 Request URINE LOW CULTURE-RUDDY COL COUNT (95373)Indication: Dysuria On: 03-Egp-964850:35 Request Urinalysis, Office (48006)Indication: Dysuria On: 54-Wkz-859083:35 Request VITAMIN D, 1, 25-DIHYDROXY (24372)Indication: Vitamin D deficiency, unspecified On: 5-Nyu-871718:01 Request URINE LOW CULTURE-IDENTIFICATN (41363)Indication: Dysuria On: 67-Emv-113322:06 Request Celiac Disease Antibody Profile (20722) x3 & (05284) X2- gliadin IgA, IgG and reticulin IgA, IgG and tissue transglutaminase IgA.Indication: Abdominal pain, acute, generalized On: 18-Egx-400340:38 Request MANDI (ANTINUCLEAR ANTIBODY) ([id number])Indication: Fatigue On: :37 Request C-REACTIVE PROTEIN (36649)Indication: Fatigue On: :37 Request CBC (AUTO) ([id number])Indication: Fatigue On: :37 Request Folate (68141)Indication: Fatigue On: :37 Request METABOLIC PANEL, COMPREHENSIVE (86327)Indication: Fatigue On: :37 Request RHEUMATOID FACTOR-QUANT (22209)Indication: Fatigue On: :37 Request SED RATE ERYTHROCYTE (94767)Indication: Fatigue On: :37 Request TSH (03811)Indication: Fatigue On: :37 Request VITAMIN B-12 (CYANOCOBALAMIN) (41833)Indication: Fatigue On: :37 Request Planned Encounters Medical; [facility] Pre [facility]ness Exam (DF Nurse) - On: 15-Aug-2018 8:00 [facility] NURSE, DF Medical; [facility] Wellness Exam (Doctor) - On: 29-Aug-2018 8:45 [facility] Fast DO, Audrey A Fast DO, Audrey A Planned Procedures XR HEEL LEFT (23292)By: Thanh CASTRO, On: 29-Apr-2018 Intent Audrey A Fast DO, Audrey A Flu Vaccine (Quadrivalent) 12858Xe: On: 29-Apr-2018 Intent Thanh CASTRO, Audrey A Fast DO, Audrey A Comments: Lot: [id number]: 02/08/19Site: L dltd, IMDose prefilled syringegiven by: Jovon reviewed and ABN signed Spirometry (75851)By: Geovanna CASTRO, On: 16-Jan-2018 Intent Minoo Comments: #2-mild obstruction Radiology - Chest- PA and LatBy: On: 16-Jan-2018 Intent Minoo Austin DO Aerosol Treatment (82915)By: Geovanna On: 16-Jan-2018 Minoo Jackson DO Comments: much more a/e no wheeze jose uch better Solu- Medrol Injection, 125mg On: 16-Jan-2018 Intent (J2930)By: Minoo Austin DO Comments: solumedrol 125mg injectionlot: [id number]: GMpt tolerated wellAD INFORMATION RECEPTIONIST Spirometry (90517)By: Geovanna CASTRO, On: 16-Jan-2018 Intent Minoo Comments: mod severe obstruction #1 Breast Ultrasound - LeftBy: Thanh CASTRO, On: 09-Oct-2017 Intent Audrey Law DO, Audrey A MRI OF BRAIN WITH AND WITHOUT On: 10-Sep-2017 Intent CONTRAST ([id number])By: Audrey Law DO, DO, Audrey A SCREENING DIGITAL TOMOSYNTHESIS OF On: 10-Sep-2017 Intent BREAST (75037)By: Audrey Law DO, DO, Audrey A ELECTROCARDIOGRAM, COMPLETE (ECG) On: 10-Sep-2017 Intent (81288)By: Audrey Law DO, DO, Comments: ekg showed normal sinus rhythym, normal axis, no acute st/t wave changes sinus hyun Audrey A Solu -Medrol Injection, 125 mg On: 08-Apr-2017 Intent (J2930)By: Audrey Law DO, DO, Audrey A Spirometry (36382)By: Thanh CASTRO, On: 21-Sep-2016 Intent Audrey Law DO Audrey A Comments: good effort and curve mod obstruction Aerosol Treatment (17493)By: Thanh On: 20-Aug-2016 Gurdeep Jackson DOa Sue Law DO, Audrey A Comments: with albuterol Phenergan Injection, up to 50 mg On: 20-Aug-2016 Intent (J2550)By: Audrey Law DO, DO, Comments: lot:[id number]: 03/28site/route: LGM/IMamt: 25mgVIS signed when applicableBITA Akbar A Radiology - Chest- PA and LatBy: On: 24-Jul-2016 Intent Audrey Law DO DO, Audrey A DEXA SCAN AXIAL SKELETON (46091)By: On: 08-May-2016 Intent Thanh CASTRO Audrey A Fast DO, Audrey A Comments: end jul MAMMOGRAM, SCREENING, BOTH BREAST On: 08-May-2016 Intent ([id number])By: Audrey Law DO, DO, Audrey A Flu Vaccine (Quadrivalent) 71304Oj: On: 08-May-2016 Intent Fast DO, Audrey A Fast DO, Audrey A Comments: Lot #:[id number] date:02/08/17mount given:0.5mlRoute: IMSite given: left deltoidGiven by: [...] 18-Aug-2015 Intent Michelle Gerber Flu Vaccine (Quadrivalent) 34279Vm: On: 27-May-2015 Intent Fast DO, Audrey A Fast DO, Audrey A Comments: lot [id number]: 02/09/2016site/route L agnieszka, IMamt 0.5mlVIS and ABN signed when applicableChelsea, CMAFM4 ADMINISTRATION OF INFLUENZA VIRUS On: 27-May-2015 Intent VACCINE (G0008)By: Gurdeep Law DOa A Fast DO, Audrey A 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 On: 23-Nov-2014 Intent (41246)By: Ashley Gan CNP COMP EYE EXAMINATION, ESTAB PATIENT On: 18-Oct-2014 Intent (30672)By: Ashley Gan CNP MAMMOGRAM, SCREENING, BOTH BREAST On: 10-Sep-2014 Intent (84510)By: Audrey Law DO Fast DO, Audrey A Radiology - ChestBy: Marbella METZ, On: 29-Jul-2014 Intent Michelle Gerber ELECTROCARDIOGRAM, COMPLETE (ECG) On: 29-Jul-2014 Intent (63553)By: Michelle Tyson MD Comments: see scanned document of test done to see results reviewed today with patient Prevnar 13 ([id number])By: Fast DO, On: 21-Jun-2014 Intent Audrey A Fast DO, Audrey A Comments: Lot #:[id number] date:10/2015Amount given:0.5mlRoute: IMSite given: left deltoidGiven by: NEGRITA Gavin DEXA SCAN AXIAL SKELETON (17214)By: On: 21-Jun-2014 Intent Fast DO, Audrey A Fast DO, Audrey A IMMUNIZ ADMNIN, 1 VAC, SNGL/COMBO On: 09-Jun-2014 Intent (07700)By: Fast DO, Audrey A Fast DO, Comments: lot:[id number]:02/08/2015dose:0.5mLRoute: IMlocation: L armgiven by: josselyn velázquez Audrey A FLU VAC, SPLIT, >3 YEARS, INTRAMUSC On: 09-Jun-2014 Intent ([id number])By: Christine Palma MRI - BrainBy: Fast DO, Audrey A Fast On: 23-Mar-2014 Intent DO, Audrey A Radiology - Cervical SpineBy: Fast On: 29-Dec-2013 Intent DO, Audrey A Fast DO, Audrey A CT - ChestBy: Fast DO, Audrey A Fast On: 29-Dec-2013 Intent DO, Audrey A Eprescribed prescriptions (G8553)By: On: 07-Sep-2013 Intent Juliana Shook MAMMOGRAM, SCREENING, BOTH BREASTS On: 20-Aug-2013 Intent (62888)By: Fast DO, Audrey A Fast DO, Audrey A Eprescribed prescriptions (G8553)By: On: 20-Aug-2013 Intent Juliana Shook PNEUM VAC ADLT/IMUMNOSPR, SBC/INTRM On: 25-May-2013 Intent (49723)By: Fast DO, Audrey A Fast DO, Comments: Lot #[id number]-L arm, dltd, IMDose-prefilled syringegiven by:STARR Renteria signed Audrey A Pap Smear, Medicare (Q0091)By: On: 25-May-2013 Intent Juliana Shook Pelvic and Breast, Medicare On: 25-May-2013 Intent (G0101)By: Juliana Shook ADMINISTRATION OF INFLUENZA VIRUS On: 14-May-2013 Intent VACCINE (G0008)By: Geovanna CASTRO, Comments: Lot #[id number]-L dltd, IMDose prefilled syringegiven by:STARR Renteria and ABN signed Minoo FLU VAC, SPLIT, >3 YEARS, INTRAMUSC On: 14-May-2013 Intent (32543)By: Minoo Austin DO Eprescribed prescriptions (G8553)By: On: 06-Mar-2013 Intent Juliana Shook B 12 Injection, 1000 mcg (J3420)By: On: 06-Mar-2013 Intent Juliana Shook 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 On: 20-Feb-2013 Intent (61237)By: Virginie Ambriz LPN MRI - BrainBy: Fast [...] THER/PROPH/DIAG IV INF, INIT On: 22-Aug-2012 Intent (52816)By: Ashley Gan CNP INFUSION, NORMAL SALINE SOLUTION , On: 22-Aug-2012 Intent 250 CC (J7050)By: Ashley Gan CNP Rocephon Injection, 1 Gm (J0696)By: On: 22-Aug-2012 Intent Ashley Gan CNP 12 Injection, 1000 mcg (J3420)By: On: 01-Jul-2012 Intent Fast DO, Audrey A Fast DO, Audrey A Comments: Lot:[id number]:Dose:1MLRoute:IMSite:L armGiven By:DEBRA Eprescribed prescriptions (G8553)By: On: 01-Jul-2012 Intent Juliana Shook FLU VAC, SPLIT, >3 YEARS, INTRAMUSC On: 27-May-2012 Intent (23250)By: Juliana Shook Comments: Lot:[id number]:6.30.13Dose:prefilledRoute:IMSite:L DltdGiven By:AUDREY signed MAMMOGRAM, SCREENING, BOTH BREASTS On: 27-May-2012 Intent (31838)By: Audrey Law DO, DO, Comments: mid jul Audrey A ADMINISTRATION OF INFLUENZA VIRUS On: 27-May-2012 Intent VACCINE (G0008)By: Juliana Shook Toradol Injection, 30 mg (J1885)By: On: 09-Jan-2012 Intent CiesAshley rogers CNP Comments: 1 ml given im lt hip lot [id number] exp 08/25 Radiology - Lumbar SpineBy: Ciesa On: 09-Jan-2012 Intent Ashley RAMIREZ DXA, BONE DENSITY, AXIAL SKELETON On: 18-Dec-2011 Intent (30207)By: Audrey Law DO, DO, Comments: due in january Audrey A TDAP VACCINE >7 IM (26853)By: On: 18-Dec-2011 Intent Juliana Shook Comments: received at work 11/2011 MAMMOGRAM, SCREENING, BOTH BREASTS On: 03-Jul-2011 Intent (50612)By: Gurdeep Law DOa Sue Fast DO, Audrey A CT - Abdomen & Pelvis Stone On: 03-Jul-2011 Intent ProtocolBy: Thanh CASTRO, Audrey A Fast DO, Audrey A FLU VAC, SPLIT, >3 YEARS, INTRAMUSC On: 03-Jul-2011 Intent (99342)By: Juliana Shook Comments: received at work 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 On: 11-May-2011 Intent (87310)By: Virginie Ambriz LPN MRI - Thoracic Spine (IV Contrast On: 17-May-2010 Intent Needed)By: Juliana Shook MAMMOGRAM, SCREENING, BOTH BREASTS On: 17-May-2010 Intent (66675)By: Gurdeep Law DOa Sue Law DO, Comments: dec Audrey A Radiology - Lumbar SpineBy: Ciesa On: 10-May-2010 Intent Ashley RAMIREZ THER/PROPH/DIAG INJ, SC/IM On: 10-May-2010 Intent (04251)By: Ashley Gan CNP INJECTION, VITAMIN B-12 On: [...] BONE DENSITY, AXIAL SKELETON On: 09-Nov-2009 Intent (16046)By: Fast DO, Audrey A Fast DO, Audrey A MAMMOGRAM, SCREENING, BOTH BREASTS On: 19-May-2009 Intent (27231)By: Fast DO, Audrey A Fast DO, Audrey A Pyyzvnqgf-Cga-Ntkas (74908)By: Thanh On: 07-Sep-2008 Intent DO, Audrey A Fast DO, Audrey A Radiology - ChestBy: Fast DO, Audrey On: 07-Sep-2008 Intent A Fast DO, Audrey A Comments: pa and lat Pulse Oximetry (75552)By: Malik RAMIREZ, On: 27-Jul-2008 Intent Adelaida Aerosol Treatment (82387)By: Malik On: 27-Jul-2008 Intent Ashley RAMIREZ PHYSICAL THERAPY EVALUATION On: 29-Jun-2008 Intent (99855)By: Ashley Gan CNP Pulse Oximetry (65342)By: Malik RAMIREZ, On: 14-Jan-2008 Intent Adelaida Aerosol Treatment (54093)By: Malik On: 14-Jan-2008 Intent Ashley RAMIREZ MAMMOGRAM, SCREENING, BOTH BREASTS On: 17-Dec-2007 Intent (63345)By: Thanh DO Audrey A Fast DO, Audrey A MRI - Lumbar SpineBy: Fast DO, Audrey On: 17-Dec-2007 Intent A Fast DO, Audrey A Comments: hx of recent multiple trauma-osteoporosis-- ddd and significant pain DXA, BONE DENSITY, AXIAL SKELETON On: 17-Dec-2007 Intent (84963)By: Fast DO, Audrey A Fast DO, Audrey A EKG (81099)By: Juliana Shook On: 17-Dec-2007 Intent Comments: ekg showed normal sinus rhythym, normal axis, no acute st/t wave changes with pacs Spirometry (94050)By: Thanh CASTRO, On: 04-Sep-2007 Intent Audrey A Fast DO, Audrey A Comments: good effort and curve - mild obstruction Radiology - ChestBy: IRA RAMIREZ, On: 22-Jul-2006 Intent KRISHAN Ear Irrigation (67920)By: IRA On: 22-Jul-2006 Intent KRISHAN RAMIREZ Planned Medications INFUSION, NORMAL SALINE SOLUTION , 250 CC Ordered: 22-Aug-2012 Pending Ciesa TRANSITION OF CARE SPECIALIST, Adelaida INJECTION, CEFTRIAXONE SODIUM, PER 250 MG Ordered: 22-Aug-2012 Pending Ciesa TRANSITION OF CARE SPECIALIST, Adelaida INJECTION, KETOROLAC TROMETHAMINE, PER 15 MG Ordered: 09-Jan-2012 Pending Ciesa TRANSITION OF CARE SPECIALIST, Adelaida INJECTION, METHYLPREDNISOLONE SODIUM SUCCINATE, UP TO [...] unspecified hyperlipidemia : DISCONTINUED - LIPID PANEL (52315) Indication: Other and unspecified hyperlipidemia Moderate persistent [...] few days- feeling worse again- was in [place] 3 [place] ago maybe this caused- no [...] - had walked that morning at the [facility]- she not walk barefoot has been doing [...] are no current emotional problems. screening, colonoscopy ([facility] Dr. Galeana). Note for Physical exam: feels really good- walking 2 miles every morning at the [facility] 5 days a week-- and doing [...] Skin lesions: itchhas poison akshat was raking [facility] Diagnosis: Poison akshat [facility] [...] are no current emotional problems. screening, colonoscopy ([facility] Dr. Galeana). Note for Physica l exam: she is up 5 pounds has started weight lifting 3 times a week at the house of [employer]- her bp is good- the symbicort was [...] stone- on cipro right now- leaving for [place] next ), has decreased energy level and [...] surgery tomorrow with Dr. Jalil Machado at [facility].- had left stone and stent in [...] providers contributing to the patient's care are absorption and adsorption engineer and other: (opthmologist and neurologist). Note for [...] (post-aide). Encounter Diagnosis: Annual physical exam (V70.0), [facility] Woman Exam , Medicare (V76.2) (Renamed [...] are on paper- had them done at [facility]. Pt is currently on Macrobid for UTI [...] Pt also had a ct abd at [facility]- called for results to be faxed.Encounter [...]
--- OUTSIDE RECORDS SUMMARY | 2018-10-29 17:02 | XMS RPT_ITS | Continuity of Care Document ---
:1945 Author Organization [facility] Address [facility] [facility] [address] [place] [address] Phone Care Team Providers Name Role Phone [...] Oral Tablet 3 (three) Tablet x3days, 2 dogkd8zxom, 1 weqr3tnbb for 0 days Quantity: 18 {Tablet} Refills: [...] End : 29-Jul-2014 Inactive Comments:use sparingly ERGOCALCIFEROL, 34813SMJE (Oral Capsule) 1 (one) Capsule q week [...] End : 16-Aug-2006 Inactive OSCAL 500/200 D-3, 638-722NW-BMTL (Oral Tablet) 1 QD for 0 days Refills: 0 Ordered:27-Jul-2008 Luana Granado End : 16-Aug-2006 Inactive GWJGW-NX-JNDC MAXIMUM STRENGTH, 400-500MG (PO Tab) 1 QD [...] : 21-Sep-2013 End : 15-Feb-2014 Discontinued CALCIUM, 638-046IQ-VPFO (Oral Tablet) 1 Daily for 0 days Refills: 0 Ordered:15-Feb-2014 Juliana Shook End : 15-Feb-2014 Discontinued CALTRATE 600+D PLUS, 570-683LM-CSOX (Oral Tablet) 1 1/2 tab qd (600-400 [...] : 23-Nov-2014 End : 13-Dec-2014 Discontinued DRISDOL, 69112QAFY (Oral Capsule) 1 Capsule Weekly for 90 [...] : 18-Apr-2010 Discontinued Comments:This order discontinued per [facility]. PredniSONE 10 MG Oral Tablet 3 (three) [...] Quantity: 60 {Gram(s)} Refills: 0 Ordered:05-Feb-2008 Luana rGanado Start : 05-Feb-2008 End : 29-Jun-2008 Discontinued TOPICORT, 0.05% (External Gel) (0.05 %) End : 29-Jun-2008 Discontinued VITAMIN B6, 250MG (Oral Tablet) 1 tab qd (250 MG) End : 29-Dec-2013 Discontinued VITAMIN D, 78027INVT (Oral Capsule) 1 (one) Capsule twice a week for 0 days Quantity: 24 {Capsule} Refills: 1 Ordered:18-Apr-2010 Mast Esther MONTANO Start : 07-Feb-2010 End : 18-Apr-2010 Discontinued Comments:This order discontinued per [facility]. 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 Past Medical History Name Dates Details [...] 2 Views Result: Comments: See Note; NOTES: [facility] Imaging Services [address] [place] [address] Calcaneus min 2 Views MR#: [id number] Acct: [id number] Name: JS MEEKS Rep #: [id number] : 1945 F 72 From: Malachi Qureshi MD PCP: Audrey Law DO Status: REG CLI Study: Calcaneus min 2 Views Date of Exam: 04/29/18 Exam# [id number] Ordering Dr: Audrey Law DO STUDY: X-RAY [...] Service support , CC: Audrey Law DO Senior Web Analyst: Signed 19-Nov-2017 Cardiology Visit Report Result: Comments: See Note; NOTES: [facility] [address] [place] [address]. 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 [place] [address] Fax REHABILITATION SERVICES DISCHAR GE SUMMARY MR#: [id number] Acct: [id number] Name: JS MEEKS Rep #: [id number] : 1945 72 From: Vesna Albert PT, Cert. MDT Referring Dr.: Quirino Bueno MD Status: REG [facility] Insurance: [facility] SELF PAY INSURANCE HP - PT [...] - PT Result: Comments: See Note; NOTES: [facility] Physical Therapy [facility] [address] [place] [address]. [address] [place], [place] [address] Fax REHABILITATION SERVICES INITIAL EVALUATION MR#: [id number] Acct: [id number] Name: JS MEEKS Rep #: [id number] : 1945 72 From: Vesna Albert PT, Cert. MDT Referring DrYuni: Quirino Bueno MD Status: REG [facility] Insurance: [facility] SELF PAY INSURANCE Patient's Visit Information [...] ROM. INSTRUCT IN APPROPRIATE EX MACHINES AT [facility]. - Subjective Subjective: Work/Leisure: RETIRED. HAS 11 [...] WALKING AND USING WEIGHT MACHINES AT THE [facility] LAST MAY AND THE ONLY THING SHE [...] normal. RECENT X-RAY OF LEFT SHOULDER AT [facility] - PATIENT UNSURE OF RESULTS. NO MRI [...] LUE SLOW AND CAREFULLY. 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 RIGHT UE STRENGTH WFL. [...] to be FAXED BACK to us at [phone] for Medicare purposes. Please let me know [...] Limited Unilateral Result: Comments: See Note; NOTES: [facility] Imaging Services [address] [place] [address] Breast Limited Unilateral MR#: [id number] Acct: [id number] Name: JS MEEKS Rep #: [id number] : 1945 F 71 From: Corey Saldaña MD PCP: Audrey Law DO Status: REG CLI Study: Breast Limited Unilateral Date of Exam: 10/10/17 Exam# [id number] Ordering Dr: Audrey Law DO STUDY: UL [...] Corey Saldaña MD at 13:47 EST Tel [phone], Service support , CC: Audrey Law DO Senior Web Analyst: Signed 10-Oct-2017 Breast Limited Unilateral Result: Comments: See Note; NOTES: [facility] Imaging Services [address] [place] [address] Breast Limited Unilateral MR#: [id number] Acct: [id number] Name: JS MEEKS Rep #: [id number] : 1945 F 71 From: Corey Saldaña MD PCP: Audrey Law DO Status: REG CLI Study: Breast Limited Unilateral Date of Exam: 10/10/17 Exam# [id number] Ordering Dr: Audrey Law DO STUDY: UL [...] Corey Saldaña MD at 13:47 EST Tel [phone], Service support , CC: Audrey Law DO Senior Web Analyst: Signed 07-Oct-2017 SCREENING MAMM (CAD), BILAT Result: Comments: See Note; NOTES: [facility] Imaging Services [address] [place] [address] SCREENING MAMM (CAD), BILAT MR#: [id number] Acct: [id number] Name: JS MEEKS Rep #: [id number] : 1945 F 71 From: Corey Saldaña MD PCP: Audrey Law DO Status: REG CLI Study: SCREENING MAMM (CAD), BILAT Date of Exam: 10/07/17 Exam# [id number] Ordering Dr: Audrey Law DO MAMMO GRAPHY [...] delay biopsy of a clinically suspicious abnormality. [id number] Electronically Signed: Corey Saldaña MD at 10:32 EST Tel [phone], Service support , CC: Audrey Law DO Senior Web Analyst: Signed 07-Oct-2017 SCREENING MAMM (CAD), BILAT Result: Comments: See Note; NOTES: [facility] Imaging Services [address] [place] [address] SCREENING MAMM (CAD), BILAT MR#: [id number] Acct: [id number] Name: JS MEEKS Rep #: : 1945 F 71 From: Corey Saldaña MD PCP: Audrey Law DO Status: REG CLI Study: SCREENING MAMM (CAD), BILAT Date of Exam: 10/07/17 Exam# [id number] Ordering Dr: Audrey Law DO ADDEN DUM by Corey Saldaña MD on 10/09/17 at 0957 HPBI/SCREENING MAMM (CAD), BILAT 10/09/17 1004 Date cc: Audrey Fast DO * Signed ADDENDUM by Corey Saldaña MD on 10/09/17 at 0957 ADDENDUM This is an addendum report for BIRADS category. BIRADS Category 0: Addit ional imaging required. Electronically Signed: Corey Saldaña MD at 9:57 EST Tel [phone], Service support , 10/09/17 0957 Date cc: [...] delay biopsy of a clinically suspicious abnormality. [id number] Electronically Signed: Corey Saldaña MD at 10:32 EST Tel [phone], Service support , CC: Audrey Law DO Senior Web Analyst: Signed 23-Sep-2017 TXT - Blood Flow Screening Result: Comments: See Note; NOTES: [facility] Cardiovascular Services [address] [place] [address] 09/23/17 0822 MR#: [id number] Acct: [id number] Name: JS MEEKS Rep #: [id number] : 1945 71 From: Jeet Grijalva MD Attending Dr: uAdrey Law DO Status: REG REF Ordering Dr: Date: 09/23/17 Location: [facility] Sex: F C Admitted: Reason For [...] DO Date Dictated: 09/23/17821 Date Transcribed: 09/23/172213 Senior Web Analyst: Signed 16-Sep-2017 Brain W/WO Contrast Result: Comments: See Note; NOTES: [facility] Imaging Services [address] [place] [address] Brain W/WO Contrast MR#: [id number] Acct: [id number] Name: JS MEEKS Rep #: [id number] : 1945 F 71 From: Gabriela Rhodes PCP: Audrey Law DO Status: REG CLI Study: Brain W/WO Contrast Date of Exam: 09/16/17 Exam# [id number] Ordering Dr: Audrey Law DO STUDY: MRI [...] Service support , CC: Audrey Law DO Senior Web Analyst: Signed 07-Aug-2016 Bilat Scrn Digital AND CAD Result: Comments: See Note; NOTES: [facility] Imaging Services [address] [place] [address] Verdana 4d Bilat Scrn Digital AND CAD MR#: [id number] Acct: [id number] Name: JS MEEKS Rep #: [id number] : 1945 F 70 From: Corey Saldaña MD PCP: Audrey Law DO Status: REG CLI Study: Bilat Scrn Digital AND CAD Date of Exam: 08/07/16 Exam# [id number] Ordering Dr: Audrey Law MAMMOGRAPHY - BILATERAL [...] delay biopsy of a clinically suspicious abnormality. [id number] Electronically Signed: Corey Saldaña MD at 12:30 EST , Service support [phone], CC: Audrey Law DO Senior Web Analyst: Signed 07-Aug-2016 Chest PA and Lateral Result: Comments: See Note; NOTES: [facility] Imaging Services [address] [place] [address] Verdana 4d Chest PA and Lateral MR#: [id number] Acct: [id number] Name: JS MEEKS Rep # : [id number] : 1945 From: Corey Saldaña MD PCP: Audrey Law DO Status: REG CLI Study: Chest PA and Lateral Date of Exam: 08/07/16 Exam# [id number] Ordering Dr: Audrey Law DO STUDY: X [...] Corey Saldaña MD at 10:53 EST Tel [phone], Service support [phone], CC: Audrey Law DO Senior Web Analyst: Signed 07-Aug-2016 DXA BONE DENS W/VERT FX ASMT Result: Comments: See Note; NOTES: [facility] Imaging Services [address] [place] [address] Verdana 4d DXA BONE DENS W/VERT FX ASMT MR#: [id number] Acct: [id number] Name: JS MEEKS Rep #: [id number] : 1945 F 70 From: Corey Saldaña MD PCP: Audrey Law DO Status: REG CLI Study: DXA BONE DENS W/VERT FX ASMT Date of Exam: 08/07/16 Exam# [id number] Ordering Dr: Jayna Law ra, DO STUDY: [...] Corey Saldaña MD at 13:51 EST Tel [phone], Service support [phone], CC: Audrey Law DO; GEE BELCHER Senior Web Analyst: Signed 13-Jul-2016 Stress Test Echo w/o Contrast Result: Comments: See Note; NOTES: [facility] Cardiovascular Services [address] [place] [address] Verda 4d Stress Test Echo w/o Contrast MR#: [id number] Acct: [id number] Name: JS ETIENNE Rep #: [id number] : 1945 70 From: Mark Leger MD [...] Protocol Stage II 3:00 10 7 134/68 Mrakus Protocol Stage III 3:00 13 1 142/64 [...] Date Dictated: 6 36 Date Transcribed: 07/13/161434 Senior Web Analyst: Signed 02-May-2016 Pulmonary Function Report Comp Result: Comments: See Note; NOTES: [facility] Pulmonary Services/Neurology [address] [place] [address] Pulmonary Function Test (Comp) MR#: [id number] Acct: [id number] Name: RENITA MEEKS Rep #: [id number] : 1945 70 From: Markus Fuentes MD Referring Dr: Audrey Law DO Status: REG CLI Ordering Dr: Audrey Law DO Date: 05/01/16 Location: [facility] Sex: F C DATE OF SERVICE: 016 [...] C: Audrey Law DO T: NTS JOB: [id number] 05/02/16 0622 <Electronically signed by Markus Fuentes MD> Date Markus Fuentes MD CC: Markus Fuentes MD; Audrey Law DO Date Dictated: 05/01/1656 Date Transcribed: 05/01/16955 Senior Web Analyst: Signed 04-Nov-2015 Brain W/WO Contrast Result: Comments: See Note; NOTES: [facility] Imaging Services [address] [place] [address] Nhungdana 4d Brain W/WO Contrast MR#: [id number] Acct: [id number] Name: ARIEL MEEKS Rep #: [id number] : 1945 F 70 From: Niki Cantu MD PCP: Audrey Law DO Status: REG CLI Study: Brain W/WO Contrast Date of Exam: 11/04/15 Exam# [id number] Ordering Dr: Audrey Law DO STUDY: MRI [...] MD at 12:52 EDT , Service support [phone] , CC: Audrey Law DO Senior Web Analyst: Signed 05-Oct-2015 Spirometry (22951) Comments: good effort curve small- Result: 05-Oct-2015 ELECTROCARDIOGRAM, COMPLETE (ECG) (37846) Result: [MEASUREMENTS ANALYSIS] Date of Test: 10/05/2015 09:16:25; Heart Rate: 67; PA Interval: 184; QRS: 92; QT Interval: 388; Corrected QT Interval (QTc): 400; P Wave Concord: 44; QRS Wave Concord: 15; T Wave Concord: 48; Blood Pressure: 122/74 [ECG DIAGNOSTIC STATEMENTS] Date of Test: 10/05/2015 09:16:25; Summary: Sinus Rhythm WITHIN NORMAL LIMITS 18-Aug-2015 Chest PA and Lateral Result: Comments: See Note; NOTES: [facility] Imaging Services [address] [place] [address] Verdana 4d Chest PA and Lateral MR#: [id number] Acct: [id number] Name: Fiona MEEKS Rep #: [id number] : 1945 F 69 From: Willie Andersen PCP: Audrey Law DO Status: REG CLI Study: Chest PA and Lateral Date of Exam: 08/18/15 Exam# [id number] Ordering Dr: Rey Tyson MD STUDY: X-RAY [...] at 6:26 EST , Service sup port [phone], RAD/Chest PA and Lateral IMPRESSION: There is NO acute cardiopulmonary abnormality. Electronically Signed: Willie Andersen MD at 6:26 EST , Service support [phone], CC: Michelle Tyson MD; Audrey Law DO Senior Web Analyst: Signed 02-Dec-2014 Spirometry (37775) Comments: obstruction present Result: 27-Oct-2014 Bilat Scrn Digital AND CAD Result: Comments: See Note; NOTES: [facility] Imaging Services [address] [place] [address] Breast Imaging Report MR#: [id number] Acct: [id number] Name: JS MEEKS Rep #: [id number] : 1945 F 69 From: Sonu Olmstead MD PCP: Audrey Law DO Status: REG CLI Study: Bilat Scrn Digital AND CAD Date of Exam: 10/27/14 Exam# [id number] Ordering Dr: Audrey Law DO MAMMOGR APHY [...] at 11:33 EDT Tel , Service support [phone], CC: Audrey Law DO Senior Web Analyst: Signed 27-Oct-2014 Bilat Scrn Digital AND CAD Result: Comments: See Note; NOTES: [facility] Imaging Services [address] [place] [address] Breast Imaging Report MR#: [id number] Acct: [id number] Name: JS MEEKS Rep #: [id number] : 1945 F 69 From: Sonu Olmstead MD PCP: Audrey Law DO Status: REG CLI Study: Bilat Scrn Digital AND CAD Date of Exam: 10/27/14 Exam# [id number] Ordering Dr: Audrey Law by Corey Saldaña MD on 11/01/14 at 1353 ADDENDUM This is an addendum report. Prior out side examination was made available for review. Comparison is made with prior examination dated November 06, 2013. There is essentially no change since prior study. Electronically Signed: Corey akbar MD at 13:53 EDT Tel [phone], Service support [phone], 11/01/14 1353 Date cc: Audrey Fast DO [...] at 11:33 EDT Tel , Service support [phone], CC: Audrey Law DO Senior Web Analyst: Signed 03-Aug-2014 Vert Fx Asess/Lat Bone Den(H) Result: Comments: See Note; NOTES: [facility] Imaging Services [address] [place] [address] Bone Density Report MR#: [id number] Acct: [id number] Name: JS MEEKS Rep #: [id number] : 1945 F 68 From: Corey Saldaña MD PCP: Audrey Law DO Status: REG CLI Study: Vert Fx Asess/Lat Bone Den(H) Date of Exam: 08/03/14 Exam# [id number] Ordering Dr: Audrey Law DO STUDY: DUAL [...] Corey Saldaña MD at 13:11 EST Tel [phone], Service support [phone], CC: Audrey Law DO Senior Web Analyst: Signed 03-Aug-2014 Dexa Bone Density Study (HP) Result: Comments: See Note; NOTES: [facility] Imaging Services [address] [place] [address] Bone Density Report MR#: [id number] Acct: [id number] Name: JS MEEKS Rep #: [id number] : 1945 F 68 From: Corey Saldaña MD PCP: Audrey Law DO Status: REG CLI Study: Dexa Bone Density Study (HP) Date of Exam: 08/03/14 Exam# [id number] Ordering Dr: Audrey Law DO STUDY: DUAL [...] Tio Saldaña MD at 14:42 EST Tel [phone], Service support [phone], CC: Audrey Law DO Senior Web Analyst: Signed 29-Jul-2014 Chest PA and Lateral Result: Comments: See Note; NOTES: [facility] Imaging Services [address] [place] [address] Radiology Report MR#: [id number] Acct: [id number] Name: JS MEEKS Rep #: [id number] : 1945 F 68 From: Brad Lea MD PCP: Audrey Law DO Status: REG CLI Study: Chest PA and Lateral Date of Exam: 07/29/14 Exam# [id number] Ordering Dr: Michelle Tyson MD STUDY: X-RA [...] MD at 7:26 EST , Service support [phone], CC: Michelle Tyson MD; Audrey Law DO Senior Web Analyst: Signed 29-Jul-2014 Spirometry (05144) Comments: see scanned document of test done to see results reviewed today with patient Result: 26-Mar-2014 Brain W/WO Contrast Result: Comments: See Note; NOTES: [facility] Imaging Services [address] [place] [address] MRI Report MR#: [id number] Acct: [id number] Name: JS MEEKS Rep #: [id number] B: 1945 F 68 From: Joshua Salcido MD PCP: Audrey Law DO Status: REG CLI Study: Brain W/WO Contrast Date of Exam: 03/26/14 Exam# [id number] Ordering Dr: Audrey Law DO STUDY: MRI [...] MD at 15:20 EDT , Service support [phone], CC: Audrey Law DO Senior Web Analyst: Signed 19-Jan-2014 Chest WITH Contrast Result: Comments: See Note; NOTES: [facility] Imaging Services [address] [place] [address] CAT Scan Report MR#: [id number] Acct: [id number] Name: JS MEEKS Rep #: [id number] : 1945 F 68 From: Corey Saldaña MD PCP: Audrey Law DO Status: REG CLI Study: Chest WITH Contrast Date of Exam: 01/19/14 Exam# [id number] Ordering Dr: Audrey Law DO STUDY: CT [...] Corey Saldaña MD at 10:20 EDT Tel [phone], Service support , CC: Audrey Law DO Senior Web Analyst: Signed 29-Dec-2013 Cerv Spine 4 or 5 Views Result: Comments: See Note; NOTES: [facility] Imaging Services [address] [place] [address] Radiology Report MR#: [id number] Acct: [id number] Name: JS MEEKS Rep #: [id number] : 1945 F 68 From: Cristino Salas MD PCP: Audrey Law DO Status: REG CLI Study: Cerv Spine 4 or 5 Views Date of Exam: 12/29/13 Exam# [id number] Ordering Dr: Audrey Law DO STUDY: X-RA [...] at 3:02 EDT Tel , Service support [phone], CC: Audrey Law DO Senior Web Analyst: Signed 22-Dec-2013 Abdomen Single View Result: Comments: See Note; NOTES: [facility] Imaging Services [facility] [place] [address] Radiology Report MR#: [id number] Acct: [id number] Name: JS MEEKS Rep #: [id number] : 1945 F 68 From: Willie Andersen PCP: Audrey Law DO Status: REG CLI Study: Abdomen Single View Date of Exam: 12/22/13 Exam# [id number] Ordering Dr: Justo Bowles MD STUDY: X-RAY [...] at 2:50 EDT Tel , Service support [phone], CC: Audrey Law DO; Justo Bowles MD Senior Web Analyst: Signed 19-Dec-2013 Operative Report Result: Comments: See Note; NOTES: [facility] Medical Records Department [address] [place] [address] Operative Report MR#: [id number] Acct: [id number] Name: JS MEEKS Rep #: [id number] : 1945 68 From: Justo Bowles MD PCP: Audrey Law DO Status: [facility] DATE OF SERVICE: 12/18/2013 DATE OF SERVICE: December 18, 2013. PREOPERATIVE DIAGNOSIS: Left ureteral ca lculi, status post stent placement. POSTOPERATIVE DIAGNOSIS: Left ureteral calculi, status post stent placement. PROCEDURES PERFORMED: Left ureteroscopy, laser lithotripsy of stone and left stent placement. ANESTHESIOLOGIST: Dr. Leiva. SURGEON: Justo Bowles M.D. SPECIMEN REMOVED: None. DRAINS: A 6-Faroese x 24 cm stent on the left [...] we nt into the bladder with a 21-Faroese rigid cystourethroscope, grabbed the existing stent from [...] for easy extraction. Justo Bowles MD T: [facility] JOB: [id number] 12/19/13 0743 <Electronically signed by Justo Bowles MD> Date Justo Bowles MD CC: Audrey Law DO; Justo Bowles MD Date Dictated: 12/18/13 1430 Date Transcribed: 12/18/13 143 Senior Web Analyst: Signed 18-Dec-2013 Operative Report Result: Comments: See Note; NOTES: [facility] Medical Records Department [address] [place] [address] Operative Report 12/18/13 1428 MR#: [id number] Acct: [id number] Name: JS MEEKS Rep #: [id number] : 1945 68 From: Justo Bowles MD PCP: Audrey Law DO Status: REG SDC Y Location: [place] [address] Report of Operation Date of Procedure: 12/18/13 [...] Discharge Instruction Result: Comments: See Note; NOTES: [facility] Medical Records Department [address] [place] [address] Discharge Instruction 12/18/13 1343 MR#: [id number] Acct: [id number] Name: JS MEEKS Rep #: [id number] : 1945 68 From: Justo Bowles MD PCP: Audrey Law DO Status: REG [facility] Discharge Diet: No Restrictions Discharge Activity: Return [...] without Cont Result: Comments: See Note; NOTES: [facility] Imaging Services [address] [place] [address] CAT Scan Report MR#: [id number] Acct: [id number] Name: JS MEEKS Rep #: [id number] : 1945 F 68 From: Corey Saldaña MD PCP: Audrey Law DO Status: REG CLI Study: Abdomen/Pelvis without Cont Date of Exam: 12/04/13 Exam# [id number] Ordering Dr: Brett Mata MD: CT ABDOMEN [...] Corey Saldaña MD at 11:50 EDT Tel [phone], Service support [phone], CC: Audrey Law DO; Brett Mata MD Senior Web Analyst: Signed Family History Unknown Family Member Name [...] kg/m2 Body Surface Area Calculated 1.61 m2 19-Mjm-126886:44 Temperature 98.3 f Pulse 66 /min Comments: [...] Height 0 in Head Circumference 0.00 cm 64-Bfc-044703:50 Temperature 97.8 f Comments: Method: Oral Pulse [...] Comments: DR LAW ORDERED PTHIN/CADR BRANDY ORDERED C[facility]IN[facility] [address] [place], [place], [address] GAP 7 (Normal) Range: 5-15 CO2 31.0 [...] Comments: Please note revised GLUCOSE reference range odbhyrlgy42/02/2018. 63-Ida-76071:07 PTHIN 78.1 pg/mL (Normal) Comments: DR LAW ORDERED PTHIN/CADR BRANDY ORDERED [facility] [address] [place], [address] Range: 18.4-80.1 :07 Vitamin D,25 Hydroxy Comments: DR LAW ORDERED PTHIN/NIYAR BRANDY ORDERED C[facility] [address] [place], [id number] Vitamin D 25-OH 68.3 ng/mL (Normal) Range: 29.95-100.01 Comments: Vitamin D 25(OH) Status Range Deficiency <20 ng/mL (50nmol/L) Insuffciency 20 - 30 ng/mL (50 - 75 nmol/L) Sufficiency 30 - 100 ng/mL (75 - 250 nmol/L) Toxicity >100 ng/mL (>250 nmol/L) 63-Vkn-26762:30 Culture, Urine Comments: [facility] [address] [place], [address] CUUR See Note (Normal) Comments: Urine CultureORGANISM 1: Mixed Gram Positive OrganismsColony Count 1000-10,000MIX CULTURE Mixed contaminants. Submit a new specimen if indicated. 8-Oxe-926496:50 HGB A1C (83089) Comments: PATIENT WAS FASTINGPERFORMED BY: [facility] [id number] [facility] [id number] Hemoglobin A1c 5.6 % (Normal) Range: 4.8-5.6 Comments: . Prediabetes: 5.7 - 6.4 Diabetes: >6.4 Glycemic control for adults with diabetes: <7.0 0-Hmw-125727:50 VITAMIN B-12 (CYANOCOBALAMIN) Comments: PATIENT WAS FASTINGPERFORMED BY: [employer] [facility] [id number] (53047) Vitamin B12 626 pg/mL (Normal) Range: 232-1245 3-Aoj-868077:50 METABOLIC PANEL, COMPREHENSIVE Comments: PATIENT WAS FASTINGPERFORMED BY: [email or web address] [facility] [id number] (65890) ALT (SGPT) 22 [iU]/L (Normal) Range: 0-32 [...] 8-27 Glucose 96 mg/dL (Normal) Range: 65-99 6-Khi-292457:50 Vitamin D Hydroxy (61092) Comments: PATIENT WAS FASTINGPERFORMED BY: [employer] [facility] [id number] Vitamin D, 25-Hydroxy 51.3 ng/mL (Normal) Range: 30.0-100.0 Comments: Vitamin D deficiency has been defined by the [place] [employer] and an Endocrine Society practice guideline as alevel of serum 25-OH vitamin D less than 20 ng/mL (1,2).The Endocrine Society went on to further define vitamin Dinsufficiency as a level between 21 and 29 ng/mL (2).1. IOM ([place] of Medicine). 2010. Dietary reference intakes for calcium and D. [place]: The National Academaihuishou Press.2. Robinson MF, Keila AGUERO, Bruce ROBLES, et al. Evaluation, treatment, and prevention of vitamin D deficiency: an Endocrine Society clinical practice guideline. JCEM. 2010; 96(7):1911-30. 1-Olx-643835:50 LIPID PANEL (05546) Comments: PATIENT WAS FASTINGPERFORMED BY: [facility] Esszrx7539 Bethea [facility] [id number]; review on 04/29 LDL/HDL Ratio 2.6 {ratio} [...] Range: 100-199 18-Nov-20179:16 Comprehensive Metabolic Profil Comments: [facility] [address] [place], [place], [id number] GAP 6 (Normal) Range: 5-15 CO2 31.0 mmol/L (Normal) Range: 21.0-32.0 CL 104 mmol/L (Normal) Range: 98-107 K 3.7 mmol/L (Normal) Range: 3.5-5.1 NA 141 mmol/L (Normal) Range: 136-145 T BILI 0.60 mg/dL (Normal) Range: 0.20-1.00 ALT 29 U/L (Normal) Range: 13-56 Comments: Please note revised ALT reference range qadddzlze17/28/2018. ALK P 59 U/L (Normal) Range: 45-117 [...] Please note revised GLUCOSE reference range /02/2018. :16 PTHIN 75.3 pg/mL (Normal) Comments: [facility] [address] [place], [address] Range: 18.4-80.1 Comments: Please Note: PTH INTACT METHOD AND REFERENCE RANGE CHANGEEffective 07/31/2017. :16 Vitamin D,25 Hydroxy Comments: [facility] [address] [place], [place], [address] Vitamin D 25-OH 71.7 ng/mL (Normal) Range: 29.95-100.01 Comments: Vitamin D 25(OH) Status Range Deficiency <20 ng/mL (50nmol/L) Insuffciency 20 - 30 ng/mL (50 - 75 nmol/L) Sufficiency 30 - 100 ng/mL (75 - 250 nmol/L) Toxicity >100 ng/mL (>250 nmol/L) :52 HGB A1C (57108) Comments: PATIENT WAS FASTINGPERFORMED BY: [facility] [id number] Hemoglobin A1c 5.5 % (Normal) Range: 4.8-5.6 Comments: . Pre-diabetes: 5.7 - 6.4 Diabetes: >6.4 Glycemic control for adults with diabetes: <7.0 :52 CBC W/AUTO DIFF WBC (98077) Comments: PATIENT WAS FASTINGPERFORMED BY: [facility] [id number] Immature Grans (Abs) 0.0 {x10E3/uL} (Normal) Range: [...] PANEL, COMPREHENSIVE Comments: PATIENT WAS FASTINGPERFORMED BY: [facility] PharmaJeff[facility]Satzxk[address] [id number] (24259) ALT (SGPT) 20 [iU]/L (Normal) Range: 0-32 [...] mg/dL (Abnormal) Range: 65-99 :52 LIPID PANEL (84230) Comments: PATIENT WAS FASTINGPERFORMED BY: [facility]CoJeff[facility])Hwghqh[address] [id number]; review at upcoming appt LDL/HDL Ratio 2.3 [...] Cholesterol, Total 177 mg/dL (Normal) Range: 100-199 07-Wro-29676:00 24 HR Urine Creatinine Comments: [facility] [address] [place], [place], [address] UR.CREAT/24hr 0.98 {g/24_HR} (Normal) Range: 0.70-1.90 URINE CREAT 67.40 mg/dL (Normal) UR TOTAL VOLUME 1.40 L (Normal) UR COLLECT TIME 24.0 {HOURS} (Normal) 80-Fmk-06682:00 Miscellaneous Lab Procedure Comments: Test(s) Ordered: STONE RISK [id number] 24HR [facility]WOur [facility] [address]qu[address] [place], [place], [address] [place] Comments: TEST RESULT FLAG UNITS REF [...] pH, 24 Hr Urine 6.3 Ammonia, Urine 76979 ug/dL Not Estab. Ammonia, Urine 22 No t Estab. Saturation Ratios Calcium Oxalate 5.13 ratio 0.00 - 6.00 Brushite 1.95 ratio 0.00 - 3.00 Monosodium Urate 1.29 ratio 0.00 - 4.00 U calixto Acid 0.49 ratio 0.00 - 1.20 Struvite 0.04 ratio 0.00 - 1.00 Please note: Graphic analysis of results will follow via computer, mail, or information clerk cashier del hayes. TESTING PERFORMED AT [facility]. ORIGINAL REPORT ON FILE IN LAB CONTAINS ADDITIONAL TEST SITE INFORMATION. AMENDED REPORT 10/04/17 0802 [place] LAB TEST previously reported as: TEST [...] 24 Hr Urine 6.3 Ammo layton, Urine 30401 ug/dL Not Estab. TESTING PERFORMED AT [facility]. ORIGINAL REPORT ON FILE IN LAB CONTAINS ADDITIONAL TEST SITE INFORMATION. 55-Lvl-17935:45 Comprehensive Metabolic Profil Comments: [facility] [address] [place], [address] GAP 6 (Normal) Range: 5-15 CO2 32.0 mmol/L (Normal) Range: 21.0-32.0 CL 101 mmol/L (Normal) Range: 98-107 K 3.8 mmol/L (Normal) Range: 3.5-5.1 NA 139 mmol/L (Normal) Range: 136-145 T BILI 0.60 mg/dL (Normal) Range: 0.20-1.00 ALT 26 U/L (Normal) Range: 13-56 Comments: Please note revised ALT reference range vchqoavwi14/28/2018. ALK P 55 U/L (Normal) Range: 45-117 [...] Comments: Please note revised GLUCOSE reference range feywlysax72/02/2018. :45 Magnesium Comments: [facility] [address] [facility] [address] [place], [address](649) MG 2.4 mg/dL (Normal) Range: 1.6-2.6 Comments: Please note revised Magnesium reference range nrhuwjztw62/15/2018. :45 Vitamin D,25 Hydroxy Comments: [facility] [address] [place], [address] Vitamin D 25-OH 46.2 ng/mL (Normal) Range: 19.95-100.01 Comments: Vitamin D 25(OH) Status Range Deficiency <20 ng/mL (50nmol/L) Insuffciency 20 - 30 ng/mL (50 - 75 nmol/L) Sufficiency 30 - 100 ng/mL (75 - 250 nmol/L) Toxicity >100 ng/mL (>250 nmol/L) 9-Xhy-911368:36 VITAMIN B-12 (CYANOCOBALAMIN) Comments: PATIENT NOT FASTINGPERFORMED BY: [facility] [id number] (89853) Vitamin B12 626 pg/mL (Normal) Range: 232-1245 95-Cgj-626777:14 CBC W/AUTO DIFF WBC (01649) Comments: PATIENT NOT FASTINGPERFORMED BY: [facility] [id number] Immature Grans (Abs) 0.0 {x10E3/uL} (Normal) Range: [...] 3.77-5.28 WBC 5.2 {x10E3/uL} (Normal) Range: 3.4-10.8 99-Aum-687137:14 METABOLIC PANEL, COMPREHENSIVE Comments: PATIENT NOT FASTINGPERFORMED BY: [facility] [address]fztsk80[address] [place] [id number]; review 09/10 (39648) ALT (SGPT) 19 [iU]/L (Normal) Range: 0-32 [...] Glucose, Serum 107 mg/dL (Abnormal) Range: 65-99 7-Sgb-871549:04 Comprehensive Metabolic Profil Comments: [facility] [address] [place], [place], [address] GAP 5 (Normal) Range: 5-15 CO2 28.0 [...] 7-18 GLU 85 mg/dL (Normal) Range: 70-110 4-Yue-161273:04 Magnesium Comments: [facility] [address] [place], [address](821) MG 2.4 mg/dL (Normal) Range: 1.8-2.4 0-Epe-557141:04 PTH,INTACT Comments: [facility] [address] [place], [address] PTH,Intact 57 pg/mL (Normal) Range: 14-72 1-Nad-012202:04 Vitamin D,25 Hydroxy Comments: [facility] [address] [facility] [address] [facility] [address] [place], [place], [address] Vitamin D 25-OH 62.0 ng/mL (Normal) Comments: Vitamin D 25(OH) Status Range Deficiency <20 ng/mL (50nmol/L) Insuffciency 20 - 30 ng/mL (50 - 75 nmol/L) Sufficiency 30 - 100 ng/mL (75 - 250 nmol/L) Toxicity >100 ng/mL (>250 nmol/L) 19-Pot-813864:07 CBC W/AUTO DIFF WBC Comments: PATIENT WAS FASTINGPERFORMED BY: [employer] [id number] BY: [facility] [address] [place] [id number] (03604) Immature Grans (Abs) 0.0 {x10E3/uL} (Normal) Range: [...] 3.77-5.28 WBC 5.2 {x10E3/uL} (Normal) Range: 3.4-10.8 30-Gqa-373458:07 METABOLIC PANEL, Comments: PATIENT WAS FASTINGPERFORMED BY: [employer] [id number] BY: [facility] PharmaJeff[facility])Wilrhk[address] [id number] COMPREHENSIVE (78017) ALT (SGPT) 21 [iU]/L (Normal) Range: 0-32 [...] Glucose, Serum 94 mg/dL (Normal) Range: 65-99 23-Qzq-363628:07 LIPOPROTEIN, BLD, BY NMR Comments: PATIENT WAS FASTINGPERFORMED BY: [facility]Co[address] [id number] BY: LabSoligenixJefferson [facility])Dpymex[address] [id number] (40045) LP-IR Score 59 (Abnormal) Comments: INSULIN RESISTANCE MARKER <--Insulin Sensitive Insulin Resistant--> Percentile in Reference PopulationInsulin Resistance ScoreLP-IR Score Low 25th 50th 75th High <27 27 45 63 >63LP-IR Score is inaccurate if patient is non-fasting. .The LP-IR score is a laboratory developed i [facility] that has beenassociated with insulin resistance [...] 1600 - 2000 Very High > 2000 46-Ipm-376604:07 Vitamin D Hydroxy Comments: PATIENT WAS FASTINGPERFORMED BY: [employer] [id number] BY: [employer] [address] [id number] (27344) Vitamin D, 25-Hydroxy 75.1 ng/mL (Normal) Range: 30.0-100.0 Comments: Vitamin D deficiency has been defined by the [place] of[place]icine and an Endocrine Society practice guideline as alevel of serum 25-OH vitamin D less than 20 ng/mL (1,2).The Endocrine Society went on to further define vitamin Dinsufficiency as a level between 21 and 29 ng/mL (2).1. IOM ([place] of Medicine). 2010. Dietary reference intakes for calcium and D. [place]: The National Academies Press.2. Robinson MF, Keila AGUERO, Bruce ROBLES, et al. Evaluation, treatment, and prevention of vitamin D deficiency: an Endocrine Society clinical practice guideline. JCEM. 2010; 96(7):1911-30. 00-Ajh-474367:07 HGB A1C (25095) Comments: PATIENT WAS FASTINGPERFORMED BY: [employer] [id number] BY: gdgt[address] [id number] Hemoglobin A1c 5.6 % (Normal) Range: 4.8-5.6 Comments: . Pre-diabetes: 5.7 - 6.4 Diabetes: >6.4 Glycemic control for adults with diabetes: <7.0 2-Qab-462879:30 Rapid Flu (88601 x 2) Influenza A Ag positive A (Normal) 59-Lmc-62849:49 MICROALBUMIN: CREATININE Comments: PATIENT WAS FASTINGPERFORMED BY: [employer] [address] [id number] BY: Birthday Gorilla [address] [id number] RATIO (35125) AND (12749) Microalb/Creat Ratio 9.5 {mg/g_creat} (Normal) Range: 0.0-30.0 Microalbumin, Urine 18.9 ug/mL (Normal) Creatinine, Urine 200.0 mg/dL (Normal) :49 HGB A1C (88030) Comments: PATIENT WAS FASTINGPERFORMED BY: LabSoligenix[address] [id number] BY: LabMcl[facility] [id number] Hemoglobin A1c 5.8 % (Abnormal) Range: 4.8-5.6 Comments: . Pre-diabetes: 5.7 - 6.4 Diabetes: >6.4 Glycemic control for adults with diabetes: <7.0 :49 METABOLIC PANEL, Comments: PATIENT WAS FASTINGPERFORMED BY: LabSoligenixDennis [place] [address] [facility] [id number] BY: LabMcl[facility] [id number] COMPREHENSIVE (59159) ALT (SGPT) 13 [iU]/L (Normal) Range: 0-32 [...] Glucose, Serum 91 mg/dL (Normal) Range: 65-99 34-Cua-79929:49 LIPOPROTEIN, BLD, BY NMR Comments: PATIENT WAS FASTINGPERFORMED BY: BN [facility] Xkhltmwosx7815 [facility] [id number] BY: CB [facility] Rukvct[address] [id number]; fu 11-28 Dr. Law (88967) LP-IR Score 36 (Normal) Comments: INSULIN RESISTANCE MARKER <--Insulin Sensitive Insulin Resistant--> Percentile in Reference PopulationInsulin Resistance ScoreLP-IR Score Low 25th 50th 75th High <27 27 45 63 >63LP-IR Score is inaccurate if patient is non-fasting. .The LP-IR score is a laboratory developed i [facility] that has beenassociated with insulin resistance [...] were developed and their performance characteristicsdetermined by [employer]. These assays have not been cleared by [...] 1600 - 2000 Very High > 2000 08-Qdv-706895:00 Comprehensive Metabolic Profil Comments: [facility] [address] [place], [address] GAP 4 (Abnormal) Range: 5-15 CO2 30.0 [...] 7-18 GLU 80 mg/dL (Normal) Range: 70-110 69-Npq-549757:00 Magnesium Comments: [facility] [address] [place], [place], [address] MG 2.2 mg/dL (Normal) Range: 1.8-2.4 63-Tvs-535256:00 PTH,INTACT Comments: [facility] [address] [place], [place], [address] PTH,Intact 39 pg/mL (Normal) Range: 14-72 48-Dkj-502184:00 Vitamin D,25 Hydroxy Comments: [facility] [address] [place], [place], [address] Vitamin D 25-OH 44.7 ng/mL (Normal) Comments: Vitamin D 25(OH) Status Range Deficiency <20 ng/mL (50nmol/L) Insuffciency 20 - 30 ng/mL (50 - 75 nmol/L) Sufficiency 30 - 100 ng/mL (75 - 250 nmol/L) Toxicity >100 ng/mL (>250 nmol/L) :23 HgA1C , Office (80385) HgA1C , Office 5.3 % (Normal) Range: 4.6 - 7.1 :42 CBC W/Diff, Automated Comments: [facility] [address] [place], [address] Absolute Lymph [...] 4.2-5.4 WBC 5.2 K/mm3 (Normal) Range: 4.4-11.0 81-Fwg-57877:42 Comprehensive Metabolic Profil Comments: [facility] [address]now[address] [place], [address] ; non-emergent till apt GAP [...] (Normal) Range: 70-110 :42 Lipid Profile Comments: [facility] [address] [place], [address] VLDL 30 mg/dL (Normal) Range: 5-40 LDL [...] High Risk :42 Microalb:Creat Ratio,Random UR Comments: [facility] [address] [place], [address] MALB:CREAT 7.2 {mg/g_CRE} (Normal) MICROALBUMIN,UR 12.0 mg/L (Normal) UR CREAT 166.00 mg/dL (Normal) :42 Vitamin B12 726 pg/mL (Normal) Comments: [facility] [address] [place], [address] ; will review on 05/08 appt Range: 211-911 :42 Vitamin D,25 Hydroxy Comments: [facility] [address] [place], [address] Vitamin D 25-OH 56.6 ng/mL (Normal) Comments: Vitamin D 25(OH) Status Range Deficiency <20 ng/mL (50nmol/L) Insuffciency 20 - 30 ng/mL (50 - 75 nmol/L) Sufficiency 30 - 100 ng/mL (75 - 250 nmol/L) Toxicity >100 ng/mL (>250 nmol/L) :46 Culture, Urine Comments: [facility] [address] [place], [id number] CUUR See Note (Normal) Comments: Urine CultureORGANISM [...] indicates non-formulary drug at [facility]. Approval by Infectious Disease Specialist required before non-formulary drugs may be ordered and/or dispensed. :46 Urinalysis, Routine (Dipstick) Comments: How was Urine Obtained? [facility] [address]ullvk[address] [place], [place], [id number] LEUK ESTERASE 500 /ul (Abnormal) OCCULT BLOOD-UR 25 /ul (Abnormal) NITRITE UR Negative (Normal) UROBILI Normal mg/dL (Normal) PROT DIPSTX 30 mg/dL (Abnormal) pH UR 6.0 (Normal) Range: 5.0 - 8.0 SP.GR. DIPSTX 1.025 (Normal) Range: 1.002-1.030 KETONE UR Negative mg/dL (Normal) BILIRUBIN URINE Negative mg/dL (Normal) GLUCOSE, UR Normal mg/dL (Normal) CLARITY Sl. Cloudy (Normal) COLOR Yellow (Normal) 41-Zpw-136001:34 PTH,INTACT Comments: [facility] [address] [place], [place], [address] PTH,Intact 64 pg/mL (Normal) Range: 14-72 55-Dlg-780056:09 CBC W/Diff, Automated Comments: [facility] [address] [place], [place], [id number] Absolute Lymph 1.36 {X10_3/ul} (Normal) Range: 0.83-4.51 [...] 4.2-5.4 WBC 5.2 K/mm3 (Normal) Range: 4.4-11.0 50-Kty-299595:09 Comprehensive Metabolic Profil Comments: [facility] [address] [place], [place], [address] GAP 2 (Abnormal) Range: 5-15 CO2 31.0 [...] 7-18 GLU 99 mg/dL (Normal) Range: 70-110 14-Bus-965733:09 Hemoglobin A1c Comments: [facility] [address] [place], [address] HGB A1C 5.4 % (Normal) Range: 4.2-6.3 48-Amr-535656:09 Lipid Profile Comments: [facility] [address] [place], [address] VLDL 29 mg/dL (Normal) Range: 5-40 LDL [...] 200-240 mg/dL Borderline >240 mg/dL High Risk 11-Vbw-362702:09 Microalb:Creat Ratio,Random UR Comments: [facility] [address] [place], [address] MALB:CREAT 13.7 {mg/g_CRE} (Normal) MICROALBUMIN,UR 19.5 mg/L (Normal) UR CREAT 142.00 mg/dL (Normal) 71-Qoy-023425:09 Vitamin B12 543 pg/mL (Normal) Comments: [facility] [address] [place], [address] Range: 211-911 98-Axz-005866:09 Vitamin D,25 Hydroxy Comments: [facility] [address] [place], [address] Vitamin D 25-OH 58.6 ng/mL (Normal) Comments: Vitamin D 25(OH) Status Range Deficiency <20 ng/mL (50nmol/L) Insuffciency 20 - 30 ng/mL (50 - 75 nmol/L) Sufficiency 30 - 100 ng/mL (75 - 250 nmol/L) Toxicity >100 ng/mL (>250 nmol/L) 30-Wmz-046845:30 Comprehensive Metabolic Profil Comments: [facility] [address] [place], [id number] ; Ordered by another doctor GAP 6 [...] 7-18 GLU 93 mg/dL (Normal) Range: 70-110 48-Gbf-491566:30 PTH,INTACT Comments: [facility] [address] [place], [address] PTH,Intact 70 pg/mL (Normal) Range: 14-72 47-Xkf-271911:30 Vitamin D,25 Hydroxy Comments: [facility] [address] [place], [place], [address] Vitamin D 25-OH 52.0 ng/mL (Normal) Comments: Vitamin D 25(OH) Status Range Deficiency <20 ng/mL (50nmol/L) Insuffciency 20 - 30 ng/mL (50 - 75 nmol/L) Sufficiency 30 - 100 ng/mL (75 - 250 nmol/L) Toxicity >100 ng/mL (>250 nmol/L) 07-Dgo-724761:23 URINE LOW CULTURE-RUDDY COL Comments: PATIENT NOT FASTINGPERFORMED BY: [facility] [address] [id number] Information: SRC:UR [id number] COUNT (87204) Result 1 NG36 (Normal) Comments: No growth in 36 - 48 hours. Urine Culture,Comprehensive Final report (Normal) 39-Jzb-84497:56 Urinalysis, Office (03984) UA - LEUKOCYTE ESTERASE Negative (Normal) UA - NITRITE Negative (Normal) URINE UROBILINGN RUDDY TIMED Normal mg/dL (Normal) UA - PROTEIN Negative mg/dL (Normal) UA - PH 7 (Normal) UA - BLOOD Negative (Normal) UA - SPECIFIC GRAVITY 1.030 (Abnormal) UA - KETONES Negative mg/dL (Normal) UA - BILIRUBIN Negative (Normal) UA - GLUCOSE Negative (Normal) 86-Ohd-79299:29 HgA1C , Office (88512) HgA1C , Office 5.7 % (Normal) Range: 4.6 - 7.1 2-Qcp-490651:11 Comprehensive Metabolic Profil Comments: [facility] [address] [place], [place], [address] ; apt. 10-16-15 GAP 5 (Normal) Range: [...] 7-18 GLU 80 mg/dL (Normal) Range: 70-110 0-Zcv-737513:11 Culture, Urine Comments: [facility] [address] [place], [place], [address] CUUR See Note (Normal) Comments: Urine CultureCulture exhibits no growth. 9-Tyj-125256:11 Lipid Profile Comments: [facility] [address] [facility] [address] [place], [place], [address] VLDL 27 mg/dL (Normal) Range: 5-40 LDL [...] :11 Vitamin B12 545 pg/mL (Normal) Comments: [facility] [address] [place], [address] Range: 211-911 Comments: ADDENDA: normal and has apt next week 61-Zun-435085:00 Comprehensive Metabolic Profil Comments: Test performed at:[facility] [address] [place] [address] ; handled by weytesha GAP 3 (Abnormal) [...] 7-18 GLU 91 mg/dL (Normal) Range: 70-110 38-Qnm-586598:00 PTH,INTACT Comments: Test performed at:[facility] [address] [place] [address] PTH,Intact 87 pg/mL (Abnormal) Range: 14-72 82-Lly-290491:00 Thyroid Stim Hormone (TSH) Comments: Test performed at:[facility] [address] [place] [address] TSH 0.57 {uIU/mL} (Normal) Range: 0.358-3.74 59-Fpb-225177:00 Vitamin D,25 Hydroxy Comments: Test performed at:[facility] [address]iri[address] [place] [address] Vitamin D 25-OH 38.5 ng/mL (Normal) Comments: Vitamin D 25(OH) Status Range Deficiency <20 ng/mL (50nmol/L) Insuffciency 20 - 30 ng/mL (50 - 75 nmol/L) Sufficiency 30 - 100 ng/mL (75 - 250 nmol/L) Toxicity >100 ng/mL (>250 nmol/L) 6-Feg-808602:51 URINE LOW CULTURE-RUDDY COL Comments: PATIENT NOT FASTINGPERFORMED BY: [facility] [address] [id number] Information: SRC:URC [id number]; susept. to cipro and was treated COUNT ([id number]) Antimicrobial MIHEAD (Normal) Comments: S = Susceptible; [...] mL (Abnormal) Urine Final report Culture,Comprehensive (Abnormal) 3-Zfr-395507:15 Urinalysis, Office (97788) UA - LEUKOCYTE ESTERASE Moderate (Normal) UA - NITRITE Negative (Normal) URINE UROBILINGN RUDDY TIMED Normal mg/dL (Normal) UA - PROTEIN 30 mg/dL (Normal) UA - PH 6.0 (Normal) Comments: 5.5 UA - BLOOD Non Hemolyzed Moderate (Normal) UA - SPECIFIC GRAVITY 1.020 (Normal) UA - KETONES 15 mg/dL (Abnormal) UA - BILIRUBIN Negative (Normal) UA - GLUCOSE Negative (Normal) 93-Pjy-64299:18 Immunofixation Urine Comments: Test performed at:[facility] [address] [place] [address] GEMMA Urine Comment (Normal) Comments: No monoclonality detected.Performed at: - [facility] [id number] Director: Himanshu Leung PhD, Phone: [phone] 06-Pnf-50521:18 PTH,INTACT Comments: Test performed at:[facility] [address] [place] [address] PTH,Intact 65 pg/mL (Normal) Range: 14-72 :18 Vitamin D,25 Hydroxy Comments: Test performed at:[facility] [address] [place] [address] Vitamin D 25-OH 45.2 ng/mL (Normal) Comments: Vitamin D 25(OH) Status Range Deficiency <20 ng/mL (50nmol/L) Insuffciency 20 - 30 ng/mL (50 - 75 nmol/L) Sufficiency 30 - 100 ng/mL (75 - 250 nmol/L) Toxicity >100 ng/mL (>250 nmol/L) 36-Oqm-992409:29 Basic Metabolic Profile (BMP) Comments: Test performed at:[facility] [address] [place] [address] ; handled by nohelia GAP [...] Comments: Please note revised CREATININE reference range wjgkyjzyl23/22/2015. BUN 15 mg/dL (Normal) Range: 7-18 GLU 97 mg/dL (Normal) Range: 70-110 6-Bax-140778:05 Immunofixation Urine Comments: Test performed at:[facility] [address] [place] [id number] GEMMA Urine Comment (Normal) Comments: No monoclonality detected.Performed at: [facility] [address] [id number] Director: Shady Jackson PhD, Phone: [phone] 6-Bkp-655855:05 PTH,INTACT Comments: ORDERED LIPID,LIVERDR.BENIGNO ORDERED BMP,PTHIN,VITD,URINE IMMUNTest performed at:[facility] [address] [place] [address] PTH,Intact 80 pg/mL (Abnormal) Range: 14-72 3-Key-839663:05 Vitamin D,25 Hydroxy Comments: Test performed at:[facility] [address] [place] [address] Vitamin D 25-OH 35.6 ng/mL (Normal) Comments: Vitamin D 25(OH) Status Range Deficiency <20 ng/mL (50nmol/L) Insuffciency 20 - 30 ng/mL (50 - 75 nmol/L) Sufficiency 30 - 100 ng/mL (75 - 250 nmol/L) Toxicity >100 ng/mL (>250 nmol/L) 3-Khr-625850:04 Basic Metabolic Profile (BMP) Comments: Test performed at:[facility] [address] [place] [address] GAP 8 (Normal) Range: 5-15 [...] 7-18 GLU 86 mg/dL (Normal) Range: 70-110 3-Bfh-336969:04 Lipid Profile Comments: Test performed at:[facility] [id number] [place] [id number] VLDL 19 mg/dL (Normal) Range: 5-40 [...] Risk :04 Liver Profile Comments: Test performed at:[facility] [id number] [place] [address] D BILI 0.16 mg/dL (Normal) Range: 0.00-0.30 T BILI 0.70 mg/dL (Normal) Range: 0.20-1.00 ALT 32 U/L (Normal) Range: 12-78 ALK P 53 U/L (Normal) Range: 50-136 AST 17 U/L (Normal) Range: 15-37 GLOB 3.1 g/dL (Normal) Range: 2.7-4.2 ALB 4.0 g/dL (Normal) Range: 3.4-5.0 T PROT 7.1 g/dL (Normal) Range: 6.4-8.2 :03 24 HR Urine Creatinine Comments: [facility] [facility] [address] [place] [address] UR.CREAT/24hr 1.3 {g/24_hr} (Normal) Range: 0.6-1.5 URINE CREAT 158.2 mg/dL (Normal) UR TOTAL VOLUME 0.85 L (Normal) UR COLLECT TIME 24.0 {HOURS} (Normal) 74-Ywt-78215:03 Miscellaneous Lab Procedure Comments: Comments: STONERISK PANEL #[id number](s) Ordered: STONERISK PANEL #[id number] performed at:[facility] [address] [place] [address] [place] Comments: TEST RESULT UNITS REFERENCE INTERVALKidney [...] - 1800.0pH, 24 Hr Urine 5.3Ammonia, Urine 81620 ug/dL Not Estab.Ammonia, Urine 20 mEq/24 hr Not E stab.Saturation Ratios:Calcium Oxalate 21.12 High ratio 0.00 - 6.00Brushite 1.78 ratio 0.00 - 3.00Monosodium Urate 2.48 ratio 0.00 - 4.00Uric Acid 5.05 High ratio 0.00 - 1.20Struvite 0.01 ratio 0.00 - 1.00Please note:Graphic analysis of results will follow:Scanned image report available in EMR TESTING PERFORMED AT [facility]. ORIGINAL REPORT ON FILE IN LAB CONTAINS ADDITIONAL TEST SITE INFORMATION. 11-Dzw-555911:32 Urine Culture,Comprehensive Comments: PATIENT NOT FASTINGPERFORMED BY: [facility] [id number] Information: [facility] [id number] Result 1 ECV (Abnormal) Comments: Escherichia coli, [...] report Culture,Comprehensi (Abnormal) ve :54 Urinalysis, Office (38963) UA - LEUKOCYTE ESTERASE Trace (Normal) UA - NITRITE Positive (Normal) URINE UROBILINGN RUDDY TIMED 2 mg/dL (Normal) UA - PROTEIN 30 mg/dL (Normal) UA - PH 6.0 (Normal) UA - BLOOD Negative (Normal) UA - SPECIFIC GRAVITY 1.030 (Abnormal) UA - KETONES Small mg/dL (Normal) UA - BILIRUBIN Negative (Normal) UA - GLUCOSE Negative (Normal) :42 HgA1C , Office (19779) HgA1C , Office 5.7 % (Normal) Range: 4.6 - 7.1 :58 CBC W/Diff, Automated Comments: Test performed at:[facility] [address] [place] [address] Absolute Lymph 1.31 {X10_3/ul} (Normal) Range: 0.83-4.51 [...] 4.2-5.4 WBC 5.2 K/mm3 (Normal) Range: 4.4-11.0 16-Lvs-894584:58 Vitamin B12 368 pg/mL (Normal) Comments: Test performed at:[facility] [address] [place] [address] Range: 211-911 80-Lsj-345057:58 Vitamin D,25 Hydroxy Comments: Test performed at:[facility] [address] [place] [address]28 Vitamin D 25-OH 31.4 ng/mL (Normal) Comments: Vitamin D 25(OH) Status Range Deficiency <20 ng/mL (50nmol/L) Insuffciency 20 - 30 ng/mL (50 - 75 nmol/L) Sufficiency 30 - 100 ng/mL (75 - 250 nmol/L) Toxicity >100 ng/mL (>250 nmol/L) 89-Hhv-604139:46 Bilirubin, Direct Comments: LIPID LIVERASAEL [facility] MGDR.FAST CMP LIPID VITD [id number] performed at:[facility] Blxgrmipgt[address] [place] [address] D BILI 0.16 mg/dL (Normal) Range: 0.00-0.30 54-Dov-139613:46 Comprehensive Metabolic Profil Comments: DR.OFORI OROPEZA LIVERASAEL [facility] MGDR.FAST CMP LIPID VITD [id number] performed at:[facility] [address]rg[address] [place] [address] GAP 6 (Normal) Range: 5-15 CO2 29.0 [...] 7-18 GLU 87 mg/dL (Normal) Range: 70-110 40-Jeu-521185:46 Lipid Profile Comments: DR.OFORI SANDIP SINGHHIISAEL [facility] MGDR.FAST CMP LIPID VITD [id number] performed at:[facility] [address] [place] [address] [phone] ; handled by cardio VLDL 25 mg/dL [...] 200-240 mg/dL Borderline >240 mg/dL High Risk 21-Ppv-381199:46 Magnesium Comments: DR.OFORI SANDIP [facility] MGDR.FAST CMP LIPID VITD [id number] performed at:[facility] W[address] [place], [place] [address] MG 2.1 mg/dL (Normal) Range: 1.8-2.4 64-Rpw-673677:31 Comprehensive Metabolic Profil Comments: Test performed at:[facility] [address] [place] [address] GAP 6 (Normal) Range: 5-15 [...] 7-18 GLU 92 mg/dL (Normal) Range: 70-110 37-Env-865656:31 Free T3 Comments: Test performed at:[facility] [address] [place] [address] FREE T3 3.1 pg/mL (Normal) Range: 2.18-3.98 61-Fgc-967988:31 Immunofixation Urine Comments: Test performed at:[facility] [address] [place] [address] GEMMA Urine Comment (Normal) Comments: No monoclonality detected.Performed at: [address], [place] [address]Usk Director: Shady Jackson PhD, Phone: [phone] 21-Wna-569462:31 T4 Free Direct Comments: Test performed at:[facility] [address] [place] [address] T4 FREE DIRECT 0.97 ng/dL (Normal) Range: 0.76-1.46 62-Mdm-683959:31 Thyroid Stim Hormone (TSH) Comments: Test performed at:[facility] [address] [place], [place] [address] TSH 0.41 {uIU/mL} (Normal) Range: 0.358-3.74 9-Iut-351607:59 EBV Panel (08734) Comments: PATIENT NOT FASTINGPERFORMED BY: [facility] [address] [id number] Interpretation: SPRCS (Normal) Comments: EBV Interpretation Chart [...] <36.0 Equivocal 36.0 - 43.9 Positive >43.9 2-Oyw-620087:59 CBC W/AUTO DIFF WBC Comments: PATIENT NOT FASTINGPERFORMED BY: [facility] [id number] Information: [id number] (15721) Immature Grans (Abs) 0.0 {x10E3/uL} (Normal) Range: [...] 3.77-5.28 WBC 5.2 {x10E3/uL} (Normal) Range: 3.4-10.8 7-Gbe-121908:05 URINE LOW CULTURE-RUDDY COL Comments: PATIENT NOT FASTINGPERFORMED BY: [facility] [id number] Information: SRC:[facility] [id number] COUNT (05385) Result 1 MUG (Normal) Comments: Mixed urogenital Colonies/mL Urine Culture,Comprehensive Final report (Normal) 1-Dvs-932461:07 Urinalysis, Office (89947) UA - LEUKOCYTE ESTERASE Negative (Normal) UA - NITRITE Negative (Normal) URINE UROBILINGN RUDDY TIMED 2 mg/dL (Normal) UA - PROTEIN 30 mg/dL (Normal) UA - PH 6.0 (Normal) Comments: 5.5 UA - BLOOD Negative (Normal) UA - SPECIFIC GRAVITY 1.030 (Abnormal) UA - KETONES Negative mg/dL (Normal) UA - BILIRUBIN Negative (Normal) UA - GLUCOSE Negative (Normal) 40-Yrz-558098:56 Rapid Flu (08319 x 2) Influenza A Ag neg (Normal) 44-Dbb-854393:22 URINE LOW CULTURE-RUDDY COL Comments: PATIENT NOT FASTINGPERFORMED BY: [employer] [address] [id number] Information: SRC:URC [id number] COUNT (02277) Result 1 MUG (Normal) Comments: Mixed urogenital flora3,000 Colonies/mL Urine Culture,Comprehensive Final report (Normal) 81-Ftu-348073:23 Urinalysis, Office (83510) UA - LEUKOCYTE ESTERASE Negative (Normal) UA - NITRITE Negative (Normal) URINE UROBILINGN RUDDY TIMED Normal mg/dL (Normal) UA - PROTEIN Negative mg/dL (Normal) UA - PH 6.0 (Normal) Comments: 5.5 UA - BLOOD Hemolyzed Trace (Normal) UA - SPECIFIC GRAVITY 1.030 (Abnormal) UA - KETONES 40 mg/dL (Abnormal) UA - BILIRUBIN Negative (Normal) UA - GLUCOSE Negative (Normal) 65-Moq-02907:19 URINE CALCIUM RUDDY TIMED Comments: PATIENT NOT FASTINGPERFORMED BY: [employer] LabCoEloquii[address] [id number] Information: START 10/05/14@630AM FINISH 24 Hour (98778) Calcium, Urine 24hr 330.0 {mg/24_hr} (Abnormal) Range: 100.0-300.0 Calcium, Urine 33.0 mg/dL (Normal) Comments: Results confirmed ondilution. 26-Aqs-984369:34 CBC W/Diff, Automated Comments: DR LAW ORDERED CBCD VITD CMP B12 IVAN NAVARRO ORDERED LIPID LIVERTest performed at:[facility] [address] [place] [address] ; handled by Emelina Navarro Absolute Lymph [...] 4.2-5.4 WBC 4.9 K/mm3 (Normal) Range: 4.4-11.0 84-Tdq-500942:34 Comprehensive Metabolic Comments: Interface Comments: IDR V0-[id number] WO E287888 V0-[id number] Main V0- [id number] Lab [id number] 1034 [facility] TP5498 V0-[id number] Main2 LIVER Routine Profil 1 PA.MMURRA INT Main3 [id number] 1034 [id number] Transmitted Cookie ARDON 30393-7F 0788-1 OV LABORD CD.Queries INT.COM CD.Queries INT.DX CD.Queries INT.ORDDT CD.Queries INT.OVID CD.Queries INT.OVORD CD.Queries OECOM CD.Queries OM.PTARRIVED CD.Queries OM.REASONDiagnosis:Diagnosis: IDR V0-[id number] [facility] E268125 V0-B2014 18305Nnpyhkndo: [id number] Main V0-[id number] Lab 27642019 1034Diagnosis: RANGLE XB1128 V0-[id number] Main2 LIPID RoutDiagnosis: ine 1 PA.MMURRA INT Main3 20140812 6 3355 [id number]: 07348 Transmitted LisData Stacey 94532-4Q 67526-Cojsxsgnu: 1 OV LAB ORD CD.Queries INT.COM 12 HOURS FASTING,Diagnosis: MAY HAVE WATER. PLEASE SEND CO PY TO PRIMARY CAREDiagnosis: PHYSICIAN. CD.Queries INT.DX CD.Queries INT.ORDDTDiagnosis: CD.Queries INT.OVID CD.Queries INT.OVORD CD.QueDiagnosis: sneha OECOM CD.Queries OM .PTARRIVED CD.Queries OM.Diagnosis: REASONTest performed at:[facility] [address] [place] [address] GAP 3 (Abnormal) Range: 5-15 CO2 29.0 [...] 7-18 GLU 87 mg/dL (Normal) Range: 70-110 56-Bqm-796458:34 Lipid Profile Comments: Interface Comments: IDR V0-[id number] [facility] [id number] V0-[id number] Main V0-[id number] Lab 20140827 1034 KEV YF8452 V0-[id number] Main2 LIVER Routine 1 PA.MMURRA INT Main3 [id number] 1034 [id number] Transmitted LisData N [id number] 0788-1 OV LABORD CD.Queries INT.COM CD.Queries INT.DX CD.Queries INT.ORDDT CD.Queries INT.OVID CD.Queries INT.OVORD CD.Queries OECOM CD.Queries OM.PTARRIVED CD.Queries OM.REASONDiagnosis:Diagnosis: IDR V0-[id number] [facility] P952640 V0-B2014 24760Xbntjjynw: 24879664 Main V0-[id number] Lab 20140827 1034Diagnosis: KEV QX9019 V0-[id number] Main2 LIPID RoutDiagnosis: ine 1 PA.MMURRA INT Main3 20140812 6 1031 [id number]: 64300 Transmitted LisData N [id number] 53310-Yrvqnydjb: 1 OV LAB ORD CD.Queries INT.COM 12 HOURS FASTING,Diagnosis: MAY HAVE WATER. PLEASE SEND CO PY TO PRIMARY CAREDiagnosis: PHYSICIAN. CD.Queries INT.DX CD.Queries INT.ORDDTDiagnosis: CD.Queries INT.OVID CD.Queries INT.OVORD CD.QueDiagnosis: sneha OECOM CD.Queries OM .PTARRIVED CD.Queries OM.Diagnosis: REASONTest performed at:[facility] [address] [place] [address] VLDL 20 mg/dL (Normal) Range: 5-40 LDL [...] 200-240 mg/dL Borderline >240 mg/dL High Risk 97-Vmj-940717:34 Thyroid Stim Hormone Comments: Interface Comments: IDR V0- [id number] [facility] R412432 V0-[id number] Main V0- [id number] Lab 20140827 1034 RANGLE FI5426 V0-[id number] Main2 LIVER Routine (TSH) 1 PA.MMURRA INT Main3 [id number] 1039 [id number] Transmitted LisData N [id number] 0788-1 OV LABORD CD.Queries INT.COM CD.Queries INT.DX CD.Queries INT.ORDDT CD.Queries INT.OVID CD.Queries INT.OVORD CD.Queries OECOM CD.Queries OM.PTARRIVED CD.Queries OM.REASONDiagnosis:Diagnosis: IDR V0-[id number] [facility] F396181 V0-B2014 32928Pgcmsqxzc: [id number] Main V0-[id number] Lab 20140827 1034Diagnosis: KEV BQ4694 V0-[id number] Main2 LIPID RoutDiagnosis: ine 1 PA.MMURRA INT Main3 0856941 6 1036 [id number]: 14460 Transmitted LisData N [id number] 55506-Dorlqqwav: 1 OV LAB ORD CD.Queries INT.COM 12 HOURS FASTING,Diagnosis: MAY HAVE WATER. PLEASE SEND CO PY TO PRIMARY CAREDiagnosis: PHYSICIAN. CD.Queries INT.DX CD.Queries INT.ORDDTDiagnosis: CD.Queries INT.OVID CD.Queries INT.OVORD CD.QueDiagnosis: sneha OECOM CD.Queries OM .PTARRIVED CD.Queries OM.Diagnosis: REASONTest performed at:[facility] [address]vy[address]sw[address] [address] TSH 0.44 {uIU/mL} (Normal) Range: 0.358-3.74 18-Lvt-988711:34 Vitamin B12 439 pg/mL (Normal) Comments: Test performed at:[facility] [address] [place] [address] Range: 211-911 72-Iar-334318:34 Vitamin D,25 Hydroxy Comments: Test performed at:[facility] [address] [place] [address] Vitamin D 25-OH 45.3 ng/mL (Normal) Comments: Vitamin D 25(OH) Status Range Deficiency <20 ng/mL (50nmol/L) Insuffciency 20 - 30 ng/mL (50 - 75 nmol/L) Sufficiency 30 - 100 ng/mL (75 - 250 nmol/L) Toxicity >100 ng/mL (>250 nmol/L) 57-Oyh-520846:13 HgA1C , Office (27125) HgA1C , Office 5.5 % (Normal) Range: 4.6 - 7.1 03-Xjy-89485:07 URINE LOW CULTURE-IDENTIFICATN Comments: PATIENT NOT FASTINGPERFORMED BY: [facility] [id number] Information: [id number] (39427) Antimicrobial MIHEAD (Normal) Comments: S = Susceptible; [...] primarily for treating urinary tract infections. (CLSI, E002-M14,2009) Urine Final report (Abnormal) Culture,Comprehensive 61-Lnw-77296:54 Urinalysis, Office (68679) UA - LEUKOCYTE ESTERASE Negative (Normal) UA [...] CHOL 191 mg/dL (Normal) Comments: <200 mg/dL Ibjuuzdhg189-361 mg/dL Borderline>240 mg/dL High Risk :54 LIVER BID 0.12 mg/dL (Normal) Range: 0.00-0.30 BIT 0.60 mg/dL (Normal) Range: 0.00-4.00 ALT 23 U/L (Normal) Range: 12-78 ALK 61 U/L (Normal) Range: 50-136 AST 13 U/L (Abnormal) Range: 15-37 ALB 3.8 g/dL (Normal) Range: 3.4-5.0 TPROT 7.0 g/dL (Normal) Range: 6.4-8.2 6-Sci-604788:34 CUUR URC See Note (Normal) Comments: ORGANISM [...] $ <=20 S(NF) indicates non-formulary drug at [facility]. Approval by Infectious DiseaseSpecialist required before non-formulary drugs may beordered and/or dispensed. 6-Dzx-574529:33 [facility] Comments: How was Urine Obtained? INT UMUC [...] UCLAR Sl. Cloudy (Normal) UCOL Yellow (Normal) 97-Jyh-202135:54 VITAMIN B-12 (CYANOCOBALAMIN) Comments: PATIENT NOT FASTINGPERFORMED BY: [facility] Awwxeh6040 [address] [facility] [id number] (18249) Vitamin B12 439 pg/mL (Normal) Range: 211-946 94-Nrc-205501:54 METABOLIC PANEL, COMPREHENSIVE Comments: PATIENT NOT FASTINGPERFORMED BY: [facility] [address] [id number] (44840) ALT (SGPT) 15 [iU]/L (Normal) Range: 0-32 [...] Glucose, Serum 97 mg/dL (Normal) Range: 65-99 78-Gdm-095927:54 CBC WITH MANUAL DIFF Comments: PATIENT NOT FASTINGPERFORMED BY: [facility]Tftbwg[address] [id number] Information: [id number] (33494) Immature Grans (Abs) 0.0 {x10E3/uL} (Normal) Range: [...] 3.77-5.28 WBC 5.3 {x10E3/uL} (Normal) Range: 3.4-10.8 61-Axj-812963:44 PARATHORMONE (33397) Comments: PATIENT NOT FASTINGPERFORMED BY: [employer] Geewjp[address] TyraTechbl[address] [place] [id number] PTH, Intact 38 pg/mL (Normal) Range: 15-65 86-Aaa-056140:44 TSH (THYROID STIMULATING Comments: PATIENT NOT FASTINGPERFORMED BY: [employer] Jjvbjw9638 [address] DinersGroupblin [place] [id number] Information: [id number] HORMONE) (89262) TSH 0.535 {uIU/mL} (Normal) Range: 0.450-4.500 74-Nzo-712542:44 PHOSPHORUS (60668) Comments: PATIENT NOT FASTINGPERFORMED BY: [employer] Lxnebd3955 [address] PixieDublin [place] [id number] Phosphorus, Serum 2.9 mg/dL (Normal) Range: 2.5-4.5 63-Fpv-016941:21 Calcium Serum (38322) Comments: 10 days; PATIENT NOT FASTINGPERFORMED BY: [address] [id number] Information: [id number] Calcium, Serum 10.3 mg/dL (Abnormal) Range: 8.6-10.2 73-Air-505425:32 Urinalysis, Office (14925) UA - LEUKOCYTE ESTERASE Negative (Normal) UA - NITRITE Negative (Normal) URINE UROBILINGN RUDDY TIMED Normal mg/dL (Normal) UA - PROTEIN Negative mg/dL (Normal) UA - PH 6.5 (Normal) UA - BLOOD Non Hemolyzed Trace (Normal) UA - SPECIFIC GRAVITY 1.010 (Normal) UA - KETONES Negative mg/dL (Normal) UA - BILIRUBIN Negative (Normal) UA - GLUCOSE Negative (Normal) 02-Xvk-517707:41 URINE LOW CULTURE (RUDDY Comments: PATIENT NOT FASTINGPERFORMED BY: [address] [id number] Information: SRC: [id number] COL COUNT) (59676) Result 1 MUG (Normal) Comments: Mixed urogenital rswic675 Colonies/mL Urine Culture,Comprehensive Final report (Normal) 2-Xjv-937854:12 CALCIUM SERUM (67581) Comments: redraw in 10 days; PATIENT NOT FASTINGPERFORMED BY: [place] [address] [id number] Information: [id number] Calcium, Serum 10.1 mg/dL (Normal) Range: 8.6-10.2 32-Ozx-807969:13 CBC WITH MANUAL DIFF Comments: PATIENT NOT FASTINGPERFORMED BY: [place] [address] [id number] Information: [id number] (82964) Immature Grans (Abs) 0.0 {x10E3/uL} (Normal) Range: [...] 3.77-5.28 WBC 5.7 {x10E3/uL} (Normal) Range: 3.4-10.8 33-Yse-902026:13 METABOLIC PANEL, COMPREHENSIVE Comments: PATIENT NOT FASTINGPERFORMED BY: [facility]Cljqvg45[address] [id number] (92411) ALT (SGPT) 15 [iU]/L (Normal) Range: 0-32 [...] Glucose, Serum 95 mg/dL (Normal) Range: 65-99 62-Ivv-021595:13 URINE LOW CULTURE (RUDDY Comments: PATIENT NOT FASTINGPERFORMED BY: [facility] [id number] Information: SRC:UR [id number] COL COUNT) (80736) Result 1 ECV (Abnormal) Comments: Escherichia coli, [...] S Urine Final report Culture,Comprehensi (Abnormal) ve 42-Yfm-262310:00 URINE LOW CULTURE-RUDDY COL Comments: PATIENT NOT FASTINGPERFORMED BY: [employer] [id number] Information: SRC:UR [id number] COUNT (81207) Result 1 NG36 (Normal) Comments: No growth in 36 - 48 hours. Urine Culture,Comprehensive Final report (Normal) 37-Mmf-748277:45 Urinalysis, Office (01719) UA - LEUKOCYTE ESTERASE Negative (Normal) UA - NITRITE Negative (Normal) URINE UROBILINGN RUDDY TIMED Normal mg/dL (Normal) UA - PROTEIN 30 mg/dL (Normal) UA - PH 6 (Abnormal) UA - BLOOD Negative (Normal) UA - SPECIFIC GRAVITY 1.030 (Abnormal) UA - KETONES 15 mg/dL (Abnormal) UA - BILIRUBIN Small (Normal) UA - GLUCOSE Negative (Normal) 00-Goa-81394:51 Urinalysis, Office (04523) UA - LEUKOCYTE ESTERASE Negative (Normal) UA - NITRITE Negative (Normal) URINE UROBILINGN RUDDY TIMED Normal mg/dL (Normal) UA - PROTEIN Negative mg/dL (Normal) UA - PH 6 (Abnormal) UA - BLOOD Negative (Normal) UA - SPECIFIC GRAVITY 1.030 (Abnormal) UA - KETONES 15 mg/dL (Abnormal) UA - BILIRUBIN Negative (Normal) UA - GLUCOSE Negative (Normal) 82-Hjs-476622:47 URINE LOW CULTURE-RUDDY COL Comments: PATIENT NOT FASTINGPERFORMED BY: [facility]Arzsib[address] [id number] Information: SRC:UR [id number] COUNT (62858) Result 1 ECV (Normal) Comments: Escherichia coli, [...] S Urine Final report (Normal) Culture,Comprehensiv e 0-Pzw-035987:41 HgA1C , Office (60491) HgA1C , Office 5.7 % (Normal) Range: 4.6 - 7.1 35-Oya-409471:59 Thin prep Pap Comments: Source.............Cervical;EndocervicalNo. of containers..01 CYTYC Thin Prep VialPATIENT NOT FASTINGPERFORMED BY: [facility] [address] [place] [id number] Information: [id number] (97159) Note: PAPSMR (Normal) Comments: The Pap smear [...] neopla sm of the cervixJulie Sukh Burrows, Radio Television Technical Director (ASCP) 7-Cva-088744:06 LIPID PANEL (87053) Comments: PATIENT WAS FASTINGPERFORMED BY: [facility] Inmxzu[address] [id number] LDL/HDL Ratio 2.5 {ratio_units} (Normal) Range: 0.0-3.2 LDL Cholesterol Calc 138 mg/dL (Abnormal) Range: 0-99 VLDL Cholesterol Nahid 20 mg/dL (Normal) Range: 5-40 HDL Cholesterol 55 mg/dL (Normal) Comments: According to ATP-III Guidelines, HDL-C >59 mg/dL is considered anegative risk factor for CHD. Triglycerides 99 mg/dL (Normal) Range: 0-149 Cholesterol, Total 213 mg/dL (Abnormal) Range: 100-199 2-Vlx-834088:06 MICROALBUMIN: CREATININE RATIO Comments: PATIENT WAS FASTINGPERFORMED BY: [facility]Wgfbyg44[address] [id number] (72042) AND (54844) Microalb/Creat Ratio 11.9 {mg/g_creat} (Normal) Range: 0.0-30.0 Microalbumin, Urine 15.8 ug/mL (Normal) Range: 0.0-17.0 Creatinine, Urine 132.4 mg/dL (Normal) Range: 15.0-278.0 9-Tyy-437738:06 METABOLIC PANEL, COMPREHENSIVE Comments: PATIENT WAS FASTINGPERFORMED BY: [employer] Ohgfpl[address] [id number] (62459) ALT (SGPT) 22 [iU]/L (Normal) Range: 0-32 [...] Glucose, Serum 99 mg/dL (Normal) Range: 65-99 3-Zaz-541891:06 VITAMIN B-12 (CYANOCOBALAMIN) Comments: PATIENT WAS FASTINGPERFORMED BY: [facility] [id number] (12003) Vitamin B12 1401 pg/mL (Abnormal) Range: 211-946 7-Fvz-713899:06 CBC (AUTO) (95628) Comments: PATIENT WAS FASTINGPERFORMED BY: [facility] [id number] Platelets 242 {x10E3/uL} (Normal) Range: 155-379 RDW 13.5 % (Normal) Range: 12.3-15.4 MCHC 33.5 g/dL (Normal) Range: 31.5-35.7 MCH 30.4 pg (Normal) Range: 26.6-33.0 MCV 91 fL (Normal) Range: 79-97 Hematocrit 41.8 % (Normal) Range: 34.0-46.6 Hemoglobin 14.0 g/dL (Normal) Range: 11.1-15.9 RBC 4.60 {x10E6/uL} (Normal) Range: 3.77-5.28 WBC 4.6 {x10E3/uL} (Normal) Range: 3.4-10.8 0-Nkb-269292:06 Vitamin D Hydroxy (95644) Comments: PATIENT WAS FASTINGPERFORMED BY: [facility] [id number] Vitamin D, 25-Hydroxy 58.4 ng/mL (Normal) Range: 30.0-100.0 Comments: Vitamin D deficiency has been defined by the [place] of[place] and an Endocrine Society practice guideline as alevel of serum 25-OH vitamin D less than 20 ng/mL (1,2).The Endocrine Society went on to further define vitamin Dinsufficiency as a level between 21 and 29 ng/mL (2).1. IOM ([place] of [employer]). 2010. Dietary reference intakes for calcium and D. Í[place]: The National Academies Press.2. Robinson MF, Keila NC, Bruce ROBLES, et al. Evaluation, treatment, and prevention of vitamin D deficiency: an Endocrine Society clinical practice guideline. JCEM. 2010; 96(7):1911-30. :48 HgA1C , Office (91423) HgA1C , Office 5.2 % (Normal) Range: 4.6 - 7.1 :52 URINE LOW CULTURE-RUDDY COL Comments: PATIENT NOT FASTINGPERFORMED BY: [facility] [id number] [facility] [id number] Information: SRC:UR [id number] COUNT ([id number]) Result 1 MUG (Normal) Comments: Mixed urogenital Colonies/mL Urine Culture,Comprehensive Final report (Normal) :53 Urinalysis, Office (99358) UA - BILIRUBIN Negative (Normal) UA - [...] performed. Images were obtained from T1 to [id number]. Sagittal and coronal images were reconstruc anum. [...] Saldaña M.D.February 10, 2013 at 2:48:17 PM [id number] Signed GP/GP If you are the referring physician and would like to consult with [facility] who provided this interpretation, please contact José Miguel Sheikh at [phone]. If this radiologist is unavailable, youwill be directed to another radiologist to assist. If you are a zenon ent with a question regarding this report, pleasecontactyour referring physician directly. Professional Interpretation Provided By: [employer], Phone , These documents con tain legally [...] Rutherford M.D.February 10, 2013 at 4:25:07 PM [id number] Signed DN/DN If you are the referring physician and would like t o consult with theradiologist who provided this interpretation, please contact Court Lund M.D. at [phone]. If this radiologist is unavailable, youwillbe directed to another radiologist to [facility]. If you are a patient with a question regarding this report, pleasecontactyour referring physician directly. Professional Interpretation Provided By: [employer], Phone ,Fax These documents contain legally protected [...] on 02/10/131627 Sign by: COURT RUTHERFORD MD [id number] BRAIN/HEAD WITHOUT CONTRAST Radiology Report See Note [...] Saldaña M.D.January 23, 2013 at 3:28:07 PM [id number] Signed GP/GP If you are the referring [facility] center and would like to consult with theradiologist who provided this interpretation, please contact José Miguel Sheikh at [phone]. If this radiologist is unavailable, youwill be directed to another radiologist to assist. If you are a patient with a question regarding this report, pleasecontactyour referring physician directly. Professional Interpretation Provided By: [employer], Phone , These documents contain legally protected [...] METZ,Corey on 1531 Sign by: Michael METZ,Corey 45-Zot-421087:10 THORACIC SPINE 3 VIEWS Radiology Report See [...] Saldaña M.D.January 23, 2013 at 3:37:41 PM [phone] Signed GP/GP If you are the referring physician and would l elizabeth to consult with theradiologist who provided this interpretation, please contact José Miguel Sheikh at [phone]. If this radiologist is unavailable, youwill be directed to another radiologis t to assist. If you are a patient with a question regarding this report, pleasecontactyour referring physician directly. Professional Interpretation Provided By: [employer], Phone ,Fax These documents contain legally protected [...] Microscopic Examination Comments: PATIENT WAS FASTINGPERFORMED BY: [employer] [id number] Bacteria Few (Normal) Mucus Threads Present (Normal) Epithelial Cells (non renal) 0-10 {/hpf} (Normal) Range: 0 - 10 RBC 0-3 {/hpf} (Normal) Range: 0 - 3 WBC 0-5 {/hpf} (Normal) Range: 0 - 5 :11 URINALYSIS, W/ MICRO (85746) Comments: PATIENT WAS FASTINGPERFORMED BY: [employer] Vdjxtp[address] [id number] Microscopic Examination See below: (Normal) Microscopic Examination MICRON (Normal) Comments: Microscopic follows if indicated. Nitrite, Urine Negative (Normal) Urobilinogen,Semi-Qn 0.2 mg/dL (Normal) Range: 0.0-1.9 Bilirubin Negative (Normal) Occult Blood Negative (Normal) Ketones Negative (Normal) Glucose Negative (Normal) Protein Negative (Normal) WBC Esterase Negative (Normal) Appearance Clear (Normal) Urine-Color Yellow (Normal) pH 6.0 (Normal) Range: 5.0-7.5 Specific [place] 1.019 (Normal) Range: 1.005-1.030 :11 METABOLIC PANEL, Comments: PATIENT WAS FASTINGPERFORMED BY: [employer] Llyyao[address] [id number] Information: [id number] COMPREHENSIVE (85534) ALT (SGPT) 18 [iU]/L (Normal) Range: 0-32 [...] B-12 (CYANOCOBALAMIN) Comments: PATIENT WAS FASTINGPERFORMED BY: [employer] [facility] Zzuhac[address] [facility] [place] [id number] (17773) Vitamin B12 314 pg/mL (Normal) Range: 211-946 :11 TSH (91984) Comments: PATIENT WAS FASTINGPERFORMED BY: [employer] [facility] Tynlqh68[address] Bethea RoadDublin [place] [id number] TSH 0.679 {uIU/mL} (Normal) Range: 0.450-4.500 :11 Vitamin D Hydroxy (75766) Comments: PATIENT WAS FASTINGPERFORMED BY: [employer] [facility] [id number] Vitamin D, 25-Hydroxy 69.4 ng/mL (Normal) Range: 30.0-100.0 Comments: Vitamin D deficiency has been defined by the [place] of[place]icine and an Endocrine Society practice guideline as alevel of serum 25-OH vitamin D less than 20 ng/mL (1,2).The Endocrine Society went on to further define vitamin Dinsufficiency as a level between 21 and 29 ng/mL (2).1. IOM ([place] of Medicine). 2010. Dietary reference intakes for calcium and D. [place]: The National Academies Press.2. Robinson MF, Keila AGUERO, Bruce ROBLES, et al. Evaluation, treatment, and prevention of vitamin D deficiency: an Endocrine Society clinical practice guideline. JCEM. 2010; 96(7):1911-30. :11 LIPID PANEL (65340) Comments: PATIENT WAS FASTINGPERFORMED BY: [employer] [facility] [id number] LDL/HDL Ratio 2.7 {ratio_units} (Normal) Range: 0.0-3.2 LDL Cholesterol Calc 130 mg/dL (Abnormal) Range: 0-99 VLDL Cholesterol Nahid 12 mg/dL (Normal) Range: 5-40 HDL Cholesterol 48 mg/dL (Normal) Comments: According to ATP-III Guidelines, HDL-C >59 mg/dL is considered anegative risk factor for CHD. Triglycerides 59 mg/dL (Normal) Range: 0-149 Cholesterol, Total 190 mg/dL (Normal) Range: 100-199 :33 EBV Panel (36295) Comments: PATIENT NOT FASTINGPERFORMED BY: [employer] [id number] Interpretation: SPRCS (Normal) Comments: EBV Interpretation Chart [...] <0.9 Equivocal 0.9 - 1.0 Positive >1.0 85-Suu-81785:33 CBC WITH MANUAL DIFF Comments: PATIENT NOT FASTINGPERFORMED BY: [facility] Zuhtac[address] [id number] Information: [id number] (54974) Immature Grans (Abs) 0.0 {x10E3/uL} (Normal) Range: [...] 3.77-5.28 WBC 5.3 {x10E3/uL} (Normal) Range: 4.0-10.5 50-Szk-14507:06 BILAT SCRN DIGITAL & CAD Radiology Report [...] Saldaña M.D.July 30, 2012 at 8:47:07 AM [phone] Signed GP/GP If you are the referring physician and would like to consult with mariel hurd who provided this interpretation, please contact José Miguel Sheikh at [phone]. If this radiologist is unavailable, youwill be directed to another radiologist to assist. If you are a pa tient with a question regarding this report, pleasecontactyour referring physician directly. Professional Interpretation Provided By: [employer], Phone , These documents c ontain legally [...] on 07/30/1258 Sign by: Corey Saldaña MD 99-Oel-273986:10 URINE LOW CULTURE-IDENTIFICATN Comments: PATIENT NOT FASTINGPERFORMED BY: [facility]Iudght[address] [id number] Information: [id number] (03171) Antimicrobial MIHEAD (Normal) Comments: S = Susceptible; [...] primarily for treating urinary tract infections. (CLSI, Z125-V67,2009) Urine Final report (Normal) Culture,Comprehensive 45-Sfa-784746:54 Urinalysis, Office (57542) UA - BILIRUBIN Negative (Normal) UA - BLOOD Negative (Normal) UA - GLUCOSE Negative (Normal) UA - KETONES Negative mg/dL (Normal) UA - LEUKOCYTE ESTERASE Trace (Normal) UA - NITRITE Negative (Normal) UA - PH 7.0 (Normal) UA - PROTEIN Negative mg/dL (Normal) UA - SPECIFIC GRAVITY 1.025 (Normal) URINE UROBILINGN RUDDY TIMED Normal mg/dL (Normal) 70-Bvc-76394:05 DEXA BONE DENSITY STUDY () Radiology Report [...] is considered osteoporotic, as outlined above, according toWlifepoint health Health Organization (WHO) carmelo olson. Fracture risk [...] Saldaña M.D.May 06, 2012 at 1:38:17 PM [phone] Signed GP/GP If you are the referring physicia n and would like to consult with theradiologist who provided this interpretation, please contact José Miguel Sheikh at [phone]. If this radiologist is unavailable, youwill be directed to [facility] radiologist to assist. If you are a patient with a question regarding this report, pleasecontactyour referring physician directly. Professional Interpretation Provided By: [employer], Phone , These documents contain legally protected [...] 2 1346 Sign by: Corey Saldaña MD 99-Ess-055449:18 L/S SPINE,MIN 4 VIEWS Radiology Report See [...] EDTElectronically Signed GP/GP Professional Interpretation Provided By: [facility], , To consult with a radiologist regarding this report, please call our [id number] line @ Dictated on 01/09/12 1614 by Ninfa Saldaña MDranscribed on 01/10/121940 by ITS IMPORTSign by Corey Saldaña MD on 01/10/121941 Sign by: Corey Saldaña MD 6-Gjb-605914:36 METABOLIC PANEL, COMPREHENSIVE Comments: PATIENT WAS FASTINGPERFORMED BY: [facility]Qkkeqa[address] [id number] (06310) ALT (SGPT) 21 [iU]/L (Normal) Range: 0-40 [...] mg/dL (Normal) Range: 65-99 :36 LIPID PANEL (21337) Comments: PATIENT WAS FASTINGPERFORMED BY: [facility] Nkbgsq[address] [id number] LDL/HDL Ratio 2.5 {ratio_units} (Normal) Range: 0.0-3.2 LDL Cholesterol Calc 118 mg/dL (Abnormal) Range: 0-99 VLDL Cholesterol Nahid 15 mg/dL (Normal) Range: 5-40 HDL Cholesterol 48 mg/dL (Normal) Comments: According to ATP-III Guidelines, HDL-C >59 mg/dL is considered anegative risk factor for CHD. Triglycerides 76 mg/dL (Normal) Range: 0-149 Cholesterol, Total 181 mg/dL (Normal) Range: 100-199 5-Vwo-881619:36 Vitamin D Hydroxy (26896) Comments: PATIENT WAS FASTINGPERFORMED BY: [facility] Qnqoka[address] [id number] Vitamin D, 25-Hydroxy 36.0 ng/mL (Normal) Range: 30.0-100.0 Comments: Vitamin D deficiency has been defined by the [place] ofFostoria City Hospitalcine and an Endocrine Society practice guideline as alevel of serum 25-OH vitamin D less than 20 ng/mL (1,2).The Endocrine Society went on to further define vitamin Dinsufficiency as a level between 21 and 29 ng/mL (2).1. IOM ([place] of Medicine). 2010. Dietary reference intakes for calcium and D. [place]: The National Academies Press.2. Robinson MF, Keila AGUERO, Bruce ROBLES, et al. Evaluation, treatment, and prevention of vitamin D deficiency: an Endocrine Society clinical practice guideline. JCEM. 2010; 96(7):1911-30. 8-Mbs-211072:36 CBC WITH MANUAL DIFF Comments: PATIENT WAS FASTINGPERFORMED BY: [facility] Fxlitb[address] [id number] Information: [id number] (15352) Immature Grans (Abs) 0.0 {x10E3/uL} (Normal) Range: [...] 3.80-5.10 WBC 4.3 {x10E3/uL} (Normal) Range: 4.0-10.5 41-Xgw-42446:35 BILAT SCRN DIGITAL & CAD Radiology Report [...] radiologist regarding this report, please call our [id number] line @ Dictated on 07/25/11 4644 by Michael METZ, Ninfaranscribed on 07/27/11 1144 by ITS IMPORTSign by Corey Saldaña MD on 07/27/11 1145 Sign by: Corey Saldaña MD 24-Jhm-638882:59 URINE LOW CULTURE-IDENTIFICATN Comments: PERFORMED BY: [facility] Knrxtc[address] [id number] Information: SRC: URINE ([id number]) Result 1 NG36 (Normal) Comments: No growth in 36 - 48 hours. Urine Culture,Comprehensive Final report (Normal) 58-Mml-513372:31 URINE LOW CULTURE-RUDDY COL Comments: PATIENT NOT FASTINGPERFORMED BY: [facility] Rhhkdz[address] [id number] Information: SRC: URINE COUNT (41894) Antimicrobial MIHEAD (Normal) Comments: S = Susceptible; [...] primarily for treating urinary tract infections. (CLSI, X051-U30,2009) Urine Final report (Normal) Culture,Comprehensive 51-Ekf-092517:06 Urinalysis, Office (97031) UA - BILIRUBIN Negative (Normal) UA - BLOOD Non Hemolyzed Moderate (Normal) UA - GLUCOSE Negative (Normal) UA - KETONES Negative mg/dL (Normal) UA - LEUKOCYTE ESTERASE Small (Normal) UA - NITRITE Negative (Normal) UA - PH 6.0 (Normal) UA - PROTEIN Negative mg/dL (Normal) UA - SPECIFIC GRAVITY 1.025 (Normal) URINE UROBILINGN RUDDY TIMED Normal mg/dL (Normal) 8-Rcw-641978:26 URINE LOW CULTURE-RUDDY COL Comments: PATIENT NOT FASTINGPERFORMED BY: [facility] Bhdgop[address] [place] [id number] Information: SRC: URINE COUNT (53803) Result 1 ECV (Normal) Comments: Escherichia coli, [...] STrimethoprim/Sulfa S Urine Final report (Normal) Culture,Comprehensive 7-Qkb-115365:03 Urinalysis, Office (74376) UA - BILIRUBIN Negative (Normal) UA - BLOOD Hemolyzed Small (Normal) UA - GLUCOSE Negative (Normal) UA - KETONES Negative mg/dL (Normal) UA - LEUKOCYTE ESTERASE Negative (Normal) UA - NITRITE Negative (Normal) UA - PH 6.0 (Normal) UA - PROTEIN Negative mg/dL (Normal) UA - SPECIFIC GRAVITY 1.025 (Normal) URINE UROBILINGN RUDDY TIMED Normal mg/dL (Normal) 52-Bfr-26069:55 Urinalysis, Office (21259) UA - LEUKOCYTE ESTERASE Small (Normal) UA - NITRITE Negative (Normal) URINE UROBILINGN RUDDY TIMED Normal mg/dL (Normal) UA - PROTEIN Negative mg/dL (Normal) UA - PH 6.0 (Normal) UA - BLOOD Hemolyzed Trace (Normal) UA - SPECIFIC GRAVITY 1.025 (Normal) UA - KETONES Negative mg/dL (Normal) UA - BILIRUBIN Negative (Normal) UA - GLUCOSE Negative (Normal) 4-Ecv-181717:23 DEXA BONE DENSITY STUDY (HP) Radiology Report See Note Comments: Exam Number: [id number] CLINICAL:This is a 64-year-old female patient with history of osteopenia. EXAMINATION:DUAL ENERGY X-RAY ABSORPTIOMETRY / DEXA. TECHNIQUE:Bone Density Measurements (BMD) of lumbar (Normal) spine and bilateral hipswere obtained using a [employer] scanner.. COMPARISON:Comparison is made with prior examination [...] http://www.nof.org Reported By: COREY SALDAÑA 21-Dec-19 METHYLM 635525 4071 nmol/L Range: 73-376 1017:48 (Abnormal) Comments: The reference range for methylmalonic acid has been set at+3sd above the mean for healthy blood bank donors. In theclinical assessment of patients with megaloblastic anemiasa cutoff of +3sd provides gre ater specificity in thediagnosis of the vitamin deficiency states, despite thesacrifice of some sensitivity. 11-May-20 VIT D,25 60792 38.5 ng/mL Range: 32.0-100.0 1017:48 (Normal) Comments: Recent studies consider the lower limit of 32.0 ng/mL to marquita threshold for optimal health.Carlos HERNANDEZ. J Nutr. 2004;135(2):317- 22.Performed at: - [facility] [address] [id number] Director: Quincy Merida MDPerformed at: [facility] [id number] Director: Britt Sanchez MD 8-Hhh-804187:24 CBCD,SMEAR DIFF RED CELL MORPH SeeNote {NORMAL} [...] 11.6-14.6 WBC 5.0 K/mm3 (Normal) Range: 4.4-11.0 2-Vdy-837563:23 VITAMIN B12 485 pg/mL (Normal) Range: 254-1320 4-Sxx-382511:23 TSH 0.60 {uIU/mL} (Normal) Range: 0.358-3.74 9-Jvu-398673:23 LIPID CHOL 203 mg/dL (Abnormal) Comments: <200 mg/dL Ecmeizvhn890-987 mg/dL Borderline>240 mg/dL High Risk HDL 49 mg/dL (Normal) Comments: Reference RangeHDL <40 mg/dL Low HDL CholesterolHDL >or= 60 mg/dL High HDL Cholesterol LDL 130 mg/dL (Normal) Range: 0-130 TRIG 120 mg/dL (Normal) Comments: Serum Triglycerides Reference IntervalNormal <150 mg/dLBorderline high 150 - 199 mg/dLHigh 200 - 499 mg/ dLVery High > or = 500 mg/dL VLDL 24 mg/dL (Normal) Range: 5-40 9-Zpm-254874:23 COMP METABOLIC CO2 29.0 mmol/L (Normal) Range: [...] (Normal) GLU 95 mg/dL (Normal) Range: 70-110 0-Dlu-817589:21 BILAT SCRN DIGITAL & CAD Radiology Report See Note (Normal) Comments: Exam Number: [id number] MAMMOGRAM, BILATERAL SCREENING DIGITAL AND CAD HISTORYRoutine [...] werealso examined wit h computer-aided detection software ([employer].). Reported By: JOSHUA MCGEE M.D. 18-May-2009 VIT D,25 30035 81.6 ng/mL Range: 32.0-100.0 11:41 (Normal) Comments: Recent studies consider the lower limit of 32.0 ng/mL to marquita threshold for optimal health.Carlos HERNANDEZ. J Nutr. 2004;135(2):317- 22.Performed At: [facility] [place], [place] [id number] 17-Pmu-71318:59 COMP METABOLIC A/G 1.2 {RATIO} (Normal) Range: [...] VLDL 23 mg/dL (Normal) Range: 5-40 :59 PTH,[id number] PTH,Intact 54 pg/mL (Normal) Range: 15-65 Comments: Performed At: [address] [id number] :59 VIT D,25 48531 145.0 ng/mL (Abnormal) Range: 32.0-100.0 Comments: Recent studies consider the lower limit of 32.0 ng/mL to marquita threshold for optimal health.Carlos HERNANDEZ. J Nutr. 2004;135(2):317-22. 4-Rwp-645749:42 RIBS UNIL 2V NO CXR Radiology Report See Note (Normal) Comments: Exam Number: [id number] RIGHT RIBS 4 VIEWS STATEMENTRight rib pain. [...] No pneumothorax. Reported By: DALLIN VALENZUELA M.D. 8-Ssv-224627:39 CHEST, PA AND LATERAL Radiology Report See Note (Normal) Comments: Exam Number: [id number] CHEST PA AND LATERAL STATEMENTRib pain. COMPARISON [...] as described. Reported By: DALLIN VALENZUELA M.D. 1-Rtb-397321:2 CA 9.2 mg/dL (Normal) Comments: ORDERED LIPID,LIVERDR.THANH ORDERED VITD,PTH,TSH,CALCIUM,LIPID ORDERED CALCIUM,PTH,SPEP,UPEP 6 Range: 8.5-10.1 2-Rnm-362214:26 LIPID Comments: ORDERED LIPID,LIVERDR.THANH ORDERED VITD,PTH,TSH,CALCIUM,LIPID ORDERED [...] mg/dL VLDL 11 mg/dL (Normal) Range: 5-40 8-Aef-089350:26 LIVER Comments: ORDERED LIPID,LIVERDR.THANH ORDERED VITD,PTH,TSH,CALCIUM,LIPID ORDERED CALCIUM,PTH,SPEP,UPEP ALB 3.7 g/dL (Normal) Range: 3.4-5.0 ALK P 59 U/L (Normal) Range: 50-136 ALT 34 U/L (Normal) Range: 30-65 AST 21 U/L (Normal) Range: 15-37 D BILI 0.07 mg/dL (Normal) Range: 0.00-0.30 T BILI 0.53 mg/dL (Normal) Range: 0.00-1.00 T PROT 6.8 g/dL (Normal) Range: 6.4-8.2 7-Sfl-012847:26 PROT.[id number] Comments: ORDERED LIPID,LIVERDR.FAST ORDERED VITD,PTH,TSH,CALCIUM,LIPID ORDERED CALCIUM,PTH,SPEP,UPEP ALBUMIN,UR 34.4 % (Normal) QMEBX-4-MATA,U 2.8 % (Normal) OHLAM-5-SUCS,U 11.5 % (Normal) BETA GLOB,U 30.6 % (Normal) GAMMA GLOB,U 20.7 % (Normal) M-SPIKE,U SeeNote % (Normal) Comments: Result: Not Observed NOTE Comment (Normal) Comments: Protein electrophoresis scan will follow via mail orcourier. PROTEIN,UR 20.0 mg/dL (Abnormal) Range: 0.0-15.0 5-Evc-540495:26 PTH,[id number] Comments: ORDERED LIPID,LIVERDR.FAST ORDERED VITD,PTH,TSH,CALCIUM,LIPID ORDERED CALCIUM,PTH,SPEP,UPEP PTH,Intact 71 pg/mL (Abnormal) Range: 15-65 Comments: Performed At: [place] [id number] [place], [place] [id number] 7-Vef-014435:26 SPE [id number] Comments: ORDERED LIPID,LIVERDR.FAST ORDERED VITD,PTH,TSH,CALCIUM,LIPID ORDERED CALCIUM,PTH,SPEP,UPEP [...] orcourier. PROTEIN,TOTAL 6.6 g/dL (Normal) Range: 6.0-8.5 5-Sir-967328:26 TSH 0.65 {uIU/mL} (Normal) Comments: ORDERED LIPID,LIVERDR.FAST ORDERED VITD,PTH,TSH,CALCIUM,LIPIDDR ORDERED CALCIUM,PTH,SPEP,UPEP Range: 0.34-4.82 :26 VIT D,25 30501 31.0 ng/mL (Abnormal) Comments: ORDERED LIPID,LIVERDR.FAST ORDERED VITD,PTH,TSH,CALCIUM,LIPIDDR ORDERED CALCIUM,PTH,SPEP,UPEP Range: 32.0-100.0 Comments: Recent studies consider the lower limit of 32.0 ng/mL to marquita threshold for optimal health.Carlos HERNANDEZ. J Nutr. 2004;135(2):317-22. 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 .Performed At: [address] [id number] [facility] Comment (Normal) Comments: The Pap smear is a screening test designed to aid in thedetection of premalignant and malignant conditions of theuterine cervix. It is not a diagnostic procedure andshould not be used as the sole means of detecting cervicalcancer. Both false-positive and false-negative reports dooccur. . PERFORM Comment (Normal) Comments: Jossue Cantu, Radio Television Technical Director ([facility]) 16-Rrn-219257:23 UNILAT LT DIAG DIGITAL & CAD Radiology Report See Note (Normal) Comments: Exam Number: [id number] LEFT DIAGNOSTIC DIGITAL MAMMOGRAM CLINICAL INFORMATIONAbnormal mammogram. [...] mammograms werealso examined with computer-aided detection software ([employer] EV [employer]versions, [employer] Reported By: DALLIN SAN M.D. 67-Bko-03500:05 BILAT [facility] DIGITAL & CAD Radiology Report See Note (Normal) Comments: Exam Number: [id number] BILATERAL DIGITAL SCREENING MAMMOGRAM COMPARISONApril 2005. MLO [...] The mammogramswere also examined with computer-aided detection software([employer] Reported By: YORDAN HILL M.D. :05 SPINE,LUMBAR (ROUTINE) Radiology Report See Note (Normal) Comments: Exam Number: [id number] MRI LUMBAR SPINE REASON FOR EXAMPersistent low [...] Report See Note (Normal) Comments: Exam Number: [id number] DEXA BONE DENSITY STUDY Done for osteopenia, [...] L5 onS1. Reported By: YORDAN HILL M.D. 5-Odg-951524:13 Urinalysis, Office (11956) UA - BILIRUBIN Negative (Normal) UA - [...] PHOS 3.1 mg/dL (Normal) Range: 2.5-4.9 :52 PTH,[id number] PTH,Intact 77 pg/mL (Abnormal) Range: 12-65 :52 VITD 1,25 27931 55.1 pg/mL (Normal) Range: 15.9-55.6 Comments: Performed At: [address] [id number] At: Lab[address] [id number] 59-Iqa-997287:17 CHEST, PA AND LATERAL (MT) Radiology Report See Note (Normal) Comments: Exam Number: [id number] PA AND LATERAL CHEST HISTORYFollow up pneumothorax. [...] T PROT 6.6 g/dL (Normal) Range: 6.4-8.2 33-Roz-460108:40 CULTURE, URINE URINE CULTURE See Note {CFU/mL} (Normal) Comments: COLONY COUNT 1000-10,000 ORGANISM 1: MIXED GRAM POS & NEG ORGANISMS :39 L/S SPINE,MIN 4 VIEWS (MT) Radiology Report See Note (Normal) Comments: Exam Number: [id number] FIVE VIEW LUMBAR SPINE, AP, LATERAL, BOTH OBLIQUES, AND A KBFBF-GZWTD7-E0. HISTORYBeing done for low back pain. FINDINGSThere [...] correlation needed. Reported By: BRETT REYNA M.D. 00-Ztf-787207:23 BMP BUN 8 mg/dL (Normal) Range: 7-18 [...] 6676 11 {IU/mL} (Normal) Range: 0-34 2:40 93-Kel-174457:40 PTH,YZRYGB49396 PTH,Intact 45 pg/mL (Normal) Range: 12-65 :40 VIT D,25 14617 88.1 ng/mL (Normal) Range: 32.0-100.0 Comments: Recent studies consider the lower limit of 32.0 ng/mL to marquita threshold for optimal health.Carlos BW. J Nutr. 2004;135(2):317-22. :40 VITD 1,25 70645 73.8 pg/mL (Abnormal) Range: 15.9-55.6 Comments: Performed At: [address] [id number] At: [facility] Hlfdld[address] [place], [place] [id number] 63-Omj-225728:39 LIPID CHOL 182 mg/dL (Normal) Comments: <200 [...] 7.6 g/dL (Normal) Range: 6.4-8.2 :34 CALCULI 751845 CA OXAL DIHYDR 35 % (Normal) CA OXAL MONOHYD 15 % (Normal) CA PHOSPHATE 50 % (Normal) COLOR Archuleta (Normal) Comment Comment (Normal) Comments: Percentage (Represents the % composition) COMMENT Comment (Normal) Comments: Physician questions regarding Calculi Analysis contactLabCo at: [phone].Performed At: [address] [id number] NIDUS SeeNote (Normal) Comments: Result: No Nidus [...] 3.5-5.1 NA 137 mmol/L (Normal) Range: 136-145 67-Xza-609329:25 CBC Comments: COMMENTS: PAT FOR OR 01/01/07 [...] GLU 2 HR GLU GTT-2 HOUR from 0504:D03758K. Range: 70-120 :50 GLU GTT-1 HOUR 176 mg/dL (Abnormal) Comments: 2HR GTT GLU 1 HR GLU GTT-1 HOUR from 0504:Q55708O. Range: 120-170 :24 GLU GTT-30 min. 145 mg/dL (Normal) Comments: 2HR GTT GLU 1/2 HR GLU GTT-30 min. from 0504:M64149F. Range: 110-170 :50 GLU GTT-FASTING 73 mg/dL (Normal) Comments: 2HR GTT FASTING GLU GTT-FASTING from 0504:V68041O. Range: 70-110 Comments: GLUCOSE TOLERANCE TEST Reference Interval Non- Adults Fasting 70 - 110 30 minutes 110 - 170 1 hour 120 - 170 2 hour 70 - 120 3 hour 70 - 110 4 hour 70 - 110 5 hour 70 - 110 94-Dxt-403531:36 CULTURE, URINE URINE CULTURE See Note {CFU/mL} [...] $$$ >=256 R TRIMETHOPRIM/SULFAMETHOXAZ $$ <=10 S 31-Uyr-930581:36 ROUTINE UA BILIRUBIN URINE SeeNote (Normal) Comments: [...] 0.2 EU/dl (Normal) Range: 0.2 - 1.0 34-Nxh-386922:00 CULTURE, URINE URINE CULTURE See Note {CFU/mL} [...] $$ <=10 S VANCOMYCIN $$ 2 S 36-Chg-850724:40 CULTURE, URINE URINE CULTURE See Note {CFU/mL} [...] NOWPrecautions*: NOT APPLICABLE 45 Range: 2.5-4.9 :45 PTH,[id number] Comments: COMMENTS: NOWPrecautions*: NOT APPLICABLE PTH,Intact 31 pg/mL (Normal) Range: 12-65 Comments: Performed At: [address] [id number] 0-Lip-037809:30 CALCULI 068296 Comments: COMMENTS: STONE ANALYSISPrecautions*: NOT APPLICABLE CA OXAL DIHYDR 55 % (Normal) CA OXAL MONOHYD 10 % (Normal) CA PHOSPHATE 35 % (Normal) COLOR Archuleta (Normal) Comment Comment (Normal) Comments: Percentage (Represents the % composition) COMMENT Comment (Normal) Comments: Physician questions regarding Calculi Analysis contact[facility]Co at: [phone].Performed At: [address] [id number] NIDUS SeeNote (Normal) Comments: Result: No Nidus [...] T PROT 5.9 g/dL (Abnormal) Range: 6.4-8.2 0-Rdi-097733:00 COMPLETE UA Comments: COMMENTS: ROOM 9Precautions*: NOT [...] (Normal) Range: 0-5 Comments: Result: 0-5 SEEN 4-Vnk-230335:00 CULTURE, URINE Comments: COMMENTS: ROOM 9Precautions*: NOT [...] 3.5-5.1 NA 137 mmol/L (Normal) Range: 136-145 4-Ttd-437308:20 CBCD Comments: Precautions*: NOT APPLICABLE BASO% 0.1 [...] 11.6-14.6 WBC 12.4 K/mm3 (Abnormal) Range: 4.4-11.0 9-Nxt-441084:20 COMPLETE UA Comments: Precautions*: NOT APPLICABLE BACTERIA [...] (Normal) Range: 0-5 Comments: Result: 0-5 SEEN 97-Ukq-690540:52 Urinalysis, Office (89750) UA - BILIRUBIN Negative (Normal) UA - BLOOD Hemolyzed Large (Normal) UA - GLUCOSE Negative (Normal) UA - KETONES Negative mg/dL (Normal) UA - LEUKOCYTE ESTERASE Large (Normal) UA - NITRITE Positive (Normal) UA - PH 5.0 (Normal) UA - PROTEIN 30 mg/dL (Normal) UA - SPECIFIC GRAVITY 1.020 (Normal) URINE UROBILINGN RUDDY TIMED 2 mg/dL (Normal) [id number] CULTURE, URINE URINE CULTURE See Note {CFU/mL} [...] $$$ 128 R TRIMETHOPRIM/SULFAMETHOXAZ $$ <=10 S 06-Slr-969217:15 MANDI-D [id number] MANDI-DIRECT 23 U/mL (Normal) Range: 0-99 Comments: Negative <100 Equivocal 100 - 120 Positive >120Performed At: [facility] [address]peh[address] [place], [place] [id number] :15 B12/FOLATES 810 FOLATES,S 2013 > 24.0 [...] 5.6 K/mm3 (Normal) Range: 4.4-11.0 :15 CELIAC [id number] ANTIGLIADIN IGA <1 U/mL (Normal) Range: 0-4 [...] Fatigue Planned Observations CBC W/AUTO DIFF WBC (04137)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 On: 3-Ttl-340064:36 Request MICROALBUMIN: CREATININE RATIO (06067) AND (81122)Indication: Abnormal glucose tolerance test On: 8-Kja-549064:22 Request METABOLIC PANEL, COMPREHENSIVE (41802)Indication: Abnormal glucose tolerance test On: :22 Request CALCIUM SERUM (01951)Indication: Hypercalcemia On: :13 Request PARATHORMONE ([id number])Indication: Hypercalcemia On: :13 Request Calcium Serum (76279)Indication: Hypercalcemia On: 94-Njt-245973:07 Request METABOLIC PANEL, COMPREHENSIVE (33931)Indication: Abnormal glucose tolerance test On: : Request VITAMIN B-12 (CYANOCOBALAMIN) (66360)Indication: Vitamin B12 deficiency (dietary) anemia On: : Request MICROALBUMIN: CREATININE RATIO (94661) AND (60322)Indication: Abnormal glucose tolerance test On: : Request LIPID PANEL (92296)Indication: Other hyperlipidemia On: : Request Vitamin D Hydroxy (84242)Indication: Vitamin D deficiency, unspecified On: : Request CBC W/AUTO DIFF WBC (92369)Indication: Vitamin B12 deficiency (dietary) anemia On: :25 Request VITAMIN B-12 (CYANOCOBALAMIN) (57328)Indication: Vitamin B12 deficiency (dietary) anemia On: :14 Request MICROALBUMIN: CREATININE RATIO (46736) AND (15272)Indication: Abnormal glucose tolerance test On: :14 Request HGB A1C (23834)Indication: Abnormal glucose tolerance test On: :14 Request CBC (AUTO) (14908)Indication: Calcium nephrolithiasis On: :13 Request Vitamin D Hydroxy (34144)Indication: Vitamin D deficiency, unspecified On: :13 Request LIPID PANEL (88067)Indication: Other hyperlipidemia On: :13 Request METABOLIC PANEL, COMPREHENSIVE (96646)Indication: Other hyperlipidemia On: :13 Request MICROALBUMIN: CREATININE RATIO (35448) AND (11988)Indication: Abnormal glucose tolerance test On: :32 Request Hemoglobin Glyclated (HGB A1C) (75382)Indication: Abnormal glucose tolerance test On: 07-Uaw-47098:32 Request METABOLIC PANEL, COMPREHENSIVE (66705)Indication: Other hyperlipidemia On: :32 Request LIPID PANEL (88836)Indication: Other hyperlipidemia On: :31 Request VITAMIN B-12 (CYANOCOBALAMIN) (49205)Indication: Vitamin B12 deficiency (dietary) anemia On: :31 Request CBC W/AUTO DIFF WBC (25973)Indication: Vitamin B12 deficiency (dietary) anemia On: :31 Request VITAMIN B-12 (CYANOCOBALAMIN) (78430)Indication: Vitamin B12 deficiency (dietary) anemia On: :22 Request LIPID PANEL (99087)Indication: Other hyperlipidemia On: :22 Request METABOLIC PANEL, COMPREHENSIVE (95271)Indication: Abnormal glucose tolerance test On: 11-Nst-600487:21 Request URINE LOW CULTURE-RUDDY COL COUNT (24668)Indication: Dysuria (Renamed from Difficult or painful urination) On: 52-Caf-138825:54 Request CBC, PLATELETS & AUT DIFF (30150)Indication: Vitamin B12 deficiency (dietary) anemia On: 1-Hlu-279869:42 Request VITAMIN B-12 (CYANOCOBALAMIN) (97382)Indication: Vitamin B12 deficiency (dietary) anemia On: 2-Smr-183185:42 Request Vitamin D Hydroxy (53271)Indication: Vitamin D deficiency, unspecified On: 3-Oua-290963:41 Request LIPID PANEL (18704)Indication: Other hyperlipidemia On: 9-Zuz-608077:41 Request METABOLIC PANEL, COMPREHENSIVE (55412)Indication: Other hyperlipidemia On: 1-Rsv-854895:41 Request METABOLIC PANEL, COMPREHENSIVE (32271)Indication: Osteoporosis (Renamed from OP (osteoporosis)) On: 49-Bbi-948597:41 Request UPEP ([id number])Indication: Osteoporosis (Renamed from OP (osteoporosis)) On: 06-Zzn-090054:28 Request SPEP ([id number])Indication: Osteoporosis (Renamed from OP (osteoporosis)) On: 02-Kby-574933:28 Request TSH ([id number])Indication: Fluid retention On: 63-Dzg-785394:43 Request Vitamin D Hydroxy (68233)Indication: Vitamin D deficiency, unspecified On: :29 Request VITAMIN B-12 (CYANOCOBALAMIN) (79462)Indication: Vitamin B12 deficiency (dietary) anemia On: :29 Request CBC W/AUTO DIFF WBC (87578)Indication: Vitamin B12 deficiency (dietary) anemia On: :29 Request METABOLIC PANEL, COMPREHENSIVE (65962)Indication: Fluid retention On: :29 Request URINE LOW CULTURE (RUDDY COL COUNT) (97057)Indication: Hematuria On: 50-Ebx-238999:11 Request URINE LOW CULTURE-RUDDY COL COUNT ([id number])Indication: Hematuria On: :56 Request URINALYSIS, W/ MICRO (28527)Indication: Hematuria On: :54 Request Parathyroid Hormone-related Peptide (PTH-rP) (92912)Indication: Fatigue On: 06-Hxm-800731:17 Request VITAMIN B-12 (CYANOCOBALAMIN) (35825)Indication: Vitamin B12 deficiency (dietary) anemia On: 8-Pmy-818631:03 Request METABOLIC PANEL, COMPREHENSIVE (89510)Indication: Abnormal glucose tolerance test On: 7-Rgq-856569:03 Request CBC WITH MANUAL DIFF (02924)Indication: Vitamin B12 deficiency (dietary) anemia On: 4-Fap-473115:02 Request Vitamin D Hydroxy (35557)Indication: Vitamin D deficiency, unspecified On: 8-Nmc-044456:02 Request LIPID PANEL (34113)Indication: Other hyperlipidemia On: :02 Request CREATININE BLOOD (34513)Indication: Other hyperlipidemia On: 6-Xfl-568562:47 Request Vitamin D Hydroxy (93320)Indication: Vitamin D deficiency, unspecified On: :37 Request VITAMIN B-12 (CYANOCOBALAMIN) (41273)Indication: Vitamin B12 deficiency (dietary) anemia On: :37 Request METABOLIC PANEL, COMPREHENSIVE (56287)Indication: Osteopenia On: :28 Request TSH (05833)Indication: Osteopenia On: :28 Request CBC WITH MANUAL DIFF (78689)Indication: Vitamin B12 deficiency (dietary) anemia On: :27 Request VITAMIN B-12 (CYANOCOBALAMIN) (84331)Indication: Vitamin B12 deficiency (dietary) anemia On: : Request LIPID PANEL (40513)Indication: Other and unspecified hyperlipidemia On: : Request Vitamin D Hydroxy (73906)Indication: Vitamin D deficiency, unspecified On: : Request METABOLIC PANEL, COMPREHENSIVE (12214)Indication: Palpitations On: :32 Request CBC WITH MANUAL DIFF (74654)Indication: Vitamin B12 deficiency (dietary) anemia On: :31 Request Vitamin D Hydroxy (99241)Indication: Vitamin D deficiency, unspecified On: : Request LIPID PANEL (21227)Indication: Other hyperlipidemia On: : Request VITAMIN B-12 (CYANOCOBALAMIN) (04971)Indication: Vitamin B12 deficiency (dietary) anemia On: : Request URINE LOW CULTURE-IDENTIFICATN (17415)Indication: recurrent uti On: : Request Urinalysis, Office (58026)Indication: Cystitis, acute On: :57 Request VITAMIN B-12 (CYANOCOBALAMIN) (72043)Indication: Vitamin D deficiency, unspecified On: :30 Request CALCIFEDIOL (83954)Indication: Vitamin D deficiency, unspecified On: :30 Request URINALYSIS (24847)Indication: Vitamin D deficiency, unspecified On: :30 Request TSH (THYROID STIMULATING HORMONE) (74629)Indication: Vitamin D deficiency, unspecified On: :30 Request CBC, PLATELETS & AUT DIFF (47844)Indication: Vitamin D deficiency, unspecified On: :30 Request METABOLIC PANEL, COMPREHENSIVE (77042)Indication: Vitamin D deficiency, unspecified On: :30 Request LIPID PANEL (96638)Indication: Other hyperlipidemia On: :30 Request URINALYSIS W/O MICRO (94751)Indication: Low back pain On: :31 Request Creatine (97803)Indication: Low back pain On: 29-Pxp-690908:13 Request BUN (Blood Urea Nitrogen) (96073)Indication: Low back pain On: 39-Lrh-799012:13 Request Creatine (06493)Indication: Low back pain On: 68-Ebc-471994:42 Request Creatine (82940)Indication: Unspecified Diagnosis On: 17-Vml-567018:34 Request LIPID PANEL (05961)Indication: Other and unspecified hyperlipidemia On: 46-Prx-717888:22 Request HEPATIC FUNCTION PANEL (19226)Indication: Other and unspecified hyperlipidemia On: 20-Pwe-868087:22 Request Vitamin D Hydroxy (65562)Indication: Vitamin D deficiency, unspecified On: 83-Bcc-698490:11 Request VITAMIN B-12 (CYANOCOBALAMIN) (44932)Indication: methylmalonic acid elevatin On: 89-Klp-341975:11 Request Methylmalonic acid, serum 18404Yutqwmlpyb: Fatigue On: 93-Lxy-346068:08 Request VITAMIN B-12 (CYANOCOBALAMIN) (27896)Indication: Fatigue On: 33-Dhg-434356:08 Request TSH ([id number])Indication: Palpitations On: 89-Zhn-635586:06 Request METABOLIC PANEL, COMPREHENSIVE (85672)Indication: Palpitations On: 40-Gna-774849:06 Request CBC WITH MANUAL DIFF ([id number])Indication: Palpitations On: 11-Frb-655173:06 Request LIPID PANEL (81676)Indication: Other and unspecified hyperlipidemia On: 28-Cya-449527:05 Request Vitamin D Hydroxy (92956)Indication: Osteopenia On: 37-Mie-553610:05 Request Vitamin D Hydroxy (76544)Indication: Vitamin D deficiency, unspecified On: 2-Fbu-282276:10 Request METABOLIC PANEL, COMPREHENSIVE (32058)Indication: Other and unspecified hyperlipidemia On: :26 Request LIPID PANEL (69408)Indication: Other and unspecified hyperlipidemia On: :26 Request PARATHORMONE (23994)Indication: Osteopenia On: 04-Cmd-818513:15 Request Vitamin D Hydroxy (70582)Indication: Vitamin D deficiency, unspecified On: 45-Pkt-327353:15 Request LIPID PANEL (82037)Indication: Other and unspecified hyperlipidemia On: 43-Aus-123372:01 Request CALCIUM SERUM (67376)Indication: Osteopenia On: 19-Cvb-442415:00 Request TSH ([id number])Indication: Osteopenia On: 69-Mhh-125284:00 Request PARATHORMONE (17171)Indication: Osteopenia On: 75-Spd-770284:00 Request Vitamin D Hydroxy (79398)Indication: Osteopenia On: 20-Fti-849060:58 Request FECAL OCCULT HGB ASSAY- tubes sent home (53818)Indication: Well woman exam with routine gynecological exam On: 13-Jsw-440554:39 Request OCCULT BLOOD FECES SCREEN- card done in office (59285)Indication: Well woman exam with routine gynecological exam On: :39 Request Thin prep Pap (27573)Indication: Well woman exam with routine gynecological exam On: 16-Rlp-056868:39 Request Comments: vaginal cuff LIPID PANEL ([id number])Indication: Other and unspecified hyperlipidemia On: 6-Pht-042146:58 Request HEPATIC FUNCTION PANEL (74444)Indication: Other and unspecified hyperlipidemia On: 3-Thi-643235:58 Request CALCIUM SERUM (50613)Indication: Osteopenia On: 7-Xjz-045268:58 Request PHOSPHORUS (79421)Indication: Osteopenia On: 0-Npm-193559:58 Request PARATHORMONE (12178)Indication: Osteopenia On: 6-Idu-209385:58 Request VITAMIN D, 1, 25-DIHYDROXY (96942)Indication: Osteopenia On: 5-Pxb-297014:58 Request URINE LOW CULTURE-RUDDY COL COUNT (73906)Indication: Dysuria On: 30-Qxz-226176:35 Request Urinalysis, Office (58692)Indication: Dysuria On: 03-Vfp-450937:35 Request VITAMIN D, 1, 25-DIHYDROXY (56071)Indication: Vitamin D deficiency, unspecified On: 8-Ehm-225791:01 Request URINE LOW CULTURE-IDENTIFICATN (19764)Indication: Dysuria On: 83-Xxb-348818:06 Request Celiac Disease Antibody Profile (32771) x3 & (15404) X2- gliadin IgA, IgG and reticulin IgA, IgG and tissue transglutaminase IgA.Indication: Abdominal pain, acute, generalized On: 66-Jnp-811954:38 Request MANDI (ANTINUCLEAR ANTIBODY) (54487)Indication: Fatigue On: :37 Request C-REACTIVE PROTEIN (02002)Indication: Fatigue On: :37 Request CBC (AUTO) (83510)Indication: Fatigue On: :37 Request Folate (92175)Indication: Fatigue On: :37 Request METABOLIC PANEL, COMPREHENSIVE (27421)Indication: Fatigue On: :37 Request RHEUMATOID FACTOR-QUANT (41214)Indication: Fatigue On: :37 Request SED RATE ERYTHROCYTE (64266)Indication: Fatigue On: :37 Request TSH (80021)Indication: Fatigue On: :37 Request VITAMIN B-12 (CYANOCOBALAMIN) (71274)Indication: Fatigue On: :37 Request Planned Encounters Medical; [facility] Pre Wellness Exam (DF Nurse) - On: 15-Aug-2018 8:00 [facility] NURSE, DF Medical; [facility] Wellness Exam (Doctor) - On: 29-Aug-2018 8:45 [facility] Fast DO, Audrey A Fast DO, Audrey A Planned Procedures XR HEEL LEFT ([id number])By: Thanh CASTRO, On: 29-Apr-2018 Intent Audrey A Fast DO, Audrey A Flu Vaccine (Quadrivalent) 97091Vo: On: 29-Apr-2018 Intent Thanh CASTRO, Audrey A Fast DO, Audrey A Comments: Lot: #[id number]: 02/08/19Site: L dltd, IMDose prefilled syringegiven by: Jovon reviewed and ABN signed Spirometry (32608)By: Geovanna CASTRO, On: 16-Jan-2018 Intent Minoo Comments: #2-mild obstruction Radiology - Chest- PA and LatBy: On: 16-Jan-2018 Intent Minoo Austin DO Aerosol Treatment (41525)By: Geovanna On: 16-Jan-2018 Minoo Jackson DO Comments: much more a/e no wheeze jose uch better Solu- Medrol Injection, 125mg On: 16-Jan-2018 Intent (J2930)By: Minoo Austin DO Comments: solumedrol 125mg injectionlot: [id number]: GMpt tolerated wellAD TEST ENGINEER NUCLEAR EQUIPMENT Spirometry (62698)By: Geovanna CASTRO, On: 16-Jan-2018 Intent Minoo Comments: mod severe obstruction #1 Breast Ultrasound - LeftBy: Thanh CASTRO, On: 09-Oct-2017 Intent Audrey Law DO, Audrey A MRI OF BRAIN WITH AND WITHOUT On: 10-Sep-2017 Intent CONTRAST (13229)By: Audrey Law DO, DO, Audrey A SCREENING DIGITAL TOMOSYNTHESIS OF On: 10-Sep-2017 Intent BREAST (71377)By: Audrey Law DO, DO, Audrey A ELECTROCARDIOGRAM, COMPLETE (ECG) On: 10-Sep-2017 Intent (20139)By: Audrey Law DO, DO, Comments: ekg showed normal sinus rhythym, normal axis, no acute st/t wave changes sinus hyun Audrey A Solu -Medrol Injection, 125 mg On: 08-Apr-2017 Intent (J2930)By: Audrey Law DO, DO, Audrey A Spirometry (44779)By: Thanh CASTRO, On: 21-Sep-2016 Intent Audrey Law DO Audrey A Comments: good effort and curve mod obstruction Aerosol Treatment (21019)By: Thanh On: 20-Aug-2016 Gurdeep Jackson DOa Sue Law DO, Audrey A Comments: with albuterol Phenergan Injection, up to 50 mg On: 20-Aug-2016 Intent (J2550)By: Audrey Lwa DO, DO, Comments: lot:[id number]: 03/28site/route: LGM/IMamt: 25mgVIS signed when applicableBITA Akbar A Radiology - Chest- PA and LatBy: On: 24-Jul-2016 Intent Audrey Law DO DO, Aurdey A DEXA SCAN AXIAL SKELETON ([id number])By: On: 08-May-2016 Intent Thanh CASTRO Audrey A Fast DO, Audrey A Comments: end jul MAMMOGRAM, SCREENING, BOTH BREAST On: 08-May-2016 Intent (71182)By: Audrey Law DO, DO, Audrey A Flu Vaccine (Quadrivalent) 99248Sz: On: 08-May-2016 Intent Fast DO, Audrey A Fast DO, Audrey A Comments: Lot #:[id number] date:02/08/17mount given:0.5mlRoute: IMSite given: left deltoidGiven by: [...] 18-Aug-2015 Intent Michelle Gerber Flu Vaccine (Quadrivalent) 49373Bp: On: 27-May-2015 Intent Fast DO, Audrey A Fast DO, Audrey A Comments: lot [id number]: 02/09/2016site/route L agnieszka, IMamt 0.5mlVIS and ABN signed when applicableChelsea, CMAFM4 ADMINISTRATION OF INFLUENZA VIRUS On: 27-May-2015 Intent VACCINE (G0008)By: Gurdeep Law DOa A Fast DO, Audrey A 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 On: 23-Nov-2014 Intent (44694)By: Ashley Gan CNP COMP EYE EXAMINATION, ESTAB PATIENT On: 18-Oct-2014 Intent (18434)By: Ashley Gan CNP MAMMOGRAM, SCREENING, BOTH BREAST On: 10-Sep-2014 Intent (69632)By: Audrey Law DO Fast DO, Audrey A Radiology - ChestBy: Marbella METZ, On: 29-Jul-2014 Intent Michelle Gerber ELECTROCARDIOGRAM, COMPLETE (ECG) On: 29-Jul-2014 Intent (84382)By: Michelle Tyson MD Comments: see scanned document of test done to see results reviewed today with patient Prevnar 13 (87459)By: Fast DO, On: 21-Jun-2014 Intent Audrey A Fast DO, Audrey A Comments: Lot #:[id number] date:10/2015Amount given:0.5mlRoute: IMSite given: left deltoidGiven by: NEGRITA Gavin DEXA SCAN AXIAL SKELETON ([id number])By: On: 21-Jun-2014 Intent Fast DO, Audrey A Fast DO, Audrey A IMMUNIZ ADMNIN, 1 VAC, SNGL/COMBO On: 09-Jun-2014 Intent (28633)By: Fast DO, Audrey A Fast DO, Comments: lot:[id number]:02/08/2015dose:0.5mLRoute: IMlocation: L armgiven by: josselyn velázquez Audrey A FLU VAC, SPLIT, >3 YEARS, INTRAMUSC On: 09-Jun-2014 Intent (13149)By: Christine Palma MRI - BrainBy: Fast DO, Audrey A Fast On: 23-Mar-2014 Intent DO, Audrey A Radiology - Cervical SpineBy: Fast On: 29-Dec-2013 Intent DO, Audrey A Fast DO, Audrey A CT - ChestBy: Fast DO, Audrey A Fast On: 29-Dec-2013 Intent DO, Audrey A Eprescribed prescriptions ([id number])By: On: 07-Sep-2013 Intent Juliana Shook MAMMOGRAM, SCREENING, BOTH BREASTS On: 20-Aug-2013 Intent (30218)By: Fast DO, Audrey A Fast DO, Audrey A Eprescribed prescriptions (G8553)By: On: 20-Aug-2013 Intent Juliana Shook PNEUM VAC ADLT/IMUMNOSPR, SBC/INTRM On: 25-May-2013 Intent (61214)By: Fast DO, Audrey A Fast DO, Comments: Lot #[id number]-L arm, dltd, IMDose-prefilled syringegiven by:STARR Renteria signed Audrey A Pap Smear, Medicare (Q0091)By: On: 25-May-2013 Intent Juliana Shook Pelvic and Breast, Medicare On: 25-May-2013 Intent (G0101)By: Juliana Shook ADMINISTRATION OF INFLUENZA VIRUS On: 14-May-2013 Intent VACCINE (G0008)By: Geovanna CASTRO, Comments: Lot #[id number]-L dltd, IMDose prefilled syringegiven by:STARR Renteria and ABN signed Minoo FLU VAC, SPLIT, >3 YEARS, INTRAMUSC On: 14-May-2013 Intent (98733)By: Minoo Austin DO Eprescribed prescriptions (G8553)By: On: 06-Mar-2013 Intent Juliana Shook B 12 Injection, 1000 mcg (J3420)By: On: 06-Mar-2013 Intent Juliana Shook 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 On: 20-Feb-2013 Intent (43356)By: Virginie Ambriz LPN MRI - BrainBy: Fast [...] THER/PROPH/DIAG IV INF, INIT On: 22-Aug-2012 Intent (23801)By: Ashley Gan CNP INFUSION, NORMAL SALINE SOLUTION , On: 22-Aug-2012 Intent 250 CC (J7050)By: Ashley Gan CNP Rocephon Injection, 1 Gm (J0696)By: On: 22-Aug-2012 Intent Ashley Gan CNP 12 Injection, 1000 mcg (J3420)By: On: 01-Jul-2012 Intent Fast DO, Audrey A Fast DO, Audrey A Comments: Lot:[id number]:Dose:1MLRoute:IMSite:L armGiven By:DEBRA Eprescribed prescriptions (G8553)By: On: 01-Jul-2012 Intent Juliana Shook FLU VAC, SPLIT, >3 YEARS, INTRAMUSC On: 27-May-2012 Intent (53439)By: Juliana Shook Comments: Lot:[id number]:6.30.13Dose:prefilledRoute:IMSite:L DltdGiven By:AUDREY signed MAMMOGRAM, SCREENING, BOTH BREASTS On: 27-May-2012 Intent (78359)By: Audrey Law DO, DO, Comments: mid jul Audrey A ADMINISTRATION OF INFLUENZA VIRUS On: 27-May-2012 Intent VACCINE (G0008)By: Juliana Shook Toradol Injection, 30 mg (J1885)By: On: 09-Jan-2012 Intent CiesAshley rogers CNP Comments: 1 ml given im lt hip lot [id number] exp 08/25 Radiology - Lumbar SpineBy: Ciesa On: 09-Jan-2012 Intent Ashley RAMIREZ DXA, BONE DENSITY, AXIAL SKELETON On: 18-Dec-2011 Intent (27360)By: Audrey Law DO, DO, Comments: due in january Audrey A TDAP VACCINE >7 IM (54747)By: On: 18-Dec-2011 Intent Juliana Shook Comments: received at work 11/2011 MAMMOGRAM, SCREENING, BOTH BREASTS On: 03-Jul-2011 Intent (01458)By: Gurdeep Law DOa Sue Fast DO, Audrey A CT - Abdomen & Pelvis Stone On: 03-Jul-2011 Intent ProtocolBy: Thanh CASTRO, Audrey A Fast DO, Audrey A FLU VAC, SPLIT, >3 YEARS, INTRAMUSC On: 03-Jul-2011 Intent (93678)By: Juliana Shook Comments: received at work 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 On: 11-May-2011 Intent (22218)By: Virginie Ambriz LPN MRI - Thoracic Spine (IV Contrast On: 17-May-2010 Intent Needed)By: Juliana Shook MAMMOGRAM, SCREENING, BOTH BREASTS On: 17-May-2010 Intent (14330)By: Gurdeep Law DOa Sue Law DO, Comments: dec Audrey A Radiology - Lumbar SpineBy: Ciesa On: 10-May-2010 Intent Ashley RAMIREZ THER/PROPH/DIAG INJ, SC/IM On: 10-May-2010 Intent (27375)By: Ashley Gan CNP INJECTION, VITAMIN B-12 On: [...] BONE DENSITY, AXIAL SKELETON On: 09-Nov-2009 Intent (30802)By: Fast DO, Audrey A Fast DO, Audrey A MAMMOGRAM, SCREENING, BOTH BREASTS On: 19-May-2009 Intent (66685)By: Fast DO, Audrey A Fast DO, Audrey A Govtdegep-Mve-Fapnn (85437)By: Thanh On: 07-Sep-2008 Intent DO, Audrey A Fast DO, Audrey A Radiology - ChestBy: Fast DO, Audrey On: 07-Sep-2008 Intent A Fast DO, Audrey A Comments: pa and lat Pulse Oximetry (43707)By: Malik RAMIREZ, On: 27-Jul-2008 Intent Adelaida Aerosol Treatment (02668)By: Malik On: 27-Jul-2008 Intent Ashley RAMIREZ PHYSICAL THERAPY EVALUATION On: 29-Jun-2008 Intent (16591)By: Ashley Gan CNP Pulse Oximetry (98884)By: Malik RAMIREZ, On: 14-Jan-2008 Intent Adelaida Aerosol Treatment (05133)By: Malik On: 14-Jan-2008 Intent Ashley RAMIREZ MAMMOGRAM, SCREENING, BOTH BREASTS On: 17-Dec-2007 Intent (41176)By: Thanh DO Audrey A Fast DO, Audrey A MRI - Lumbar SpineBy: Fast DO, Audrey On: 17-Dec-2007 Intent A Fast DO, Audrey A Comments: hx of recent multiple trauma-osteoporosis-- ddd and significant pain DXA, BONE DENSITY, AXIAL SKELETON On: 17-Dec-2007 Intent (39963)By: Fast DO, Audrey A Fast DO, Audrey A EKG (04151)By: Juliana Shook On: 17-Dec-2007 Intent Comments: ekg showed normal sinus rhythym, normal axis, no acute st/t wave changes with pacs Spirometry (71755)By: Thanh CASTRO, On: 04-Sep-2007 Intent Audrey A Fast DO, Audrey A Comments: good effort and curve - mild obstruction Radiology - ChestBy: IRA RAMIREZ, On: 22-Jul-2006 Intent KRISHAN Ear Irrigation (88069)By: IRA On: 22-Jul-2006 Intent KRISHAN RAMIREZ Planned Medications INFUSION, NORMAL SALINE SOLUTION , 250 CC Ordered: 22-Aug-2012 Pending Ciesa MAINTENANCE AND REPAIR WORKER, Adelaida INJECTION, CEFTRIAXONE SODIUM, PER 250 MG Ordered: 22-Aug-2012 Pending Ciesa MAINTENANCE AND REPAIR WORKER, Adelaida INJECTION, KETOROLAC TROMETHAMINE, PER 15 MG Ordered: 09-Jan-2012 Pending Ciesa MAINTENANCE AND REPAIR WORKER, Adelaida INJECTION, METHYLPREDNISOLONE SODIUM SUCCINATE, UP [...] unspecified hyperlipidemia : DISCONTINUED - LIPID PANEL (97942) Indication: Other and unspecified hyperlipidemia Moderate persistent [...] few days- feeling worse again- was in [place] 3 weeks ago maybe this caused- no [...] - had walked that morning at the [facility]- she not walk barefoot has been [...] are no current emotional problems. screening, colonoscopy ([facility] Dr. Galeana). Note for Physical exam: feels really good- walking 2 miles every morning at the [facility] 5 days a week-- and doing [...] Skin lesions: itchhas poison [facility]: Poison akshat [facility] [...] are no current emotional problems. screening, colonoscopy ([facility] Dr. Galeana). Note for Physica l exam: she is up 5 pounds has started weight lifting 3 times a week at the house of [employer]- her bp is good- the symbicort was [...] surgery tomorrow with Dr. Jalil Machado at [facility].- had left stone and stent in uterer [...] The patient does have durable power of export documents clerk and living will. The patient has noticed nothing from the geriatic depression scale. Other providers contributing to the patient's care are hoisting engineer pile driving and other: (opthmologist and neurologist). Note for [...] (post-aide). Encounter Diagnosis: Annual physical exam (V70.0), [facility] Woman Exam , Medicare (V76.2) (Renamed from [...] are on paper- had them done at [facility]. Pt is currently on Macrobid for [...] Pt also had a ct abd at [facility]- called for results to be faxed.Encounter Diagnosis: [...]
--- OUTSIDE RECORDS SUMMARY | 2018-10-29 17:03 | XMS RPT_ITS ---
:1945 Author Organization OHIP Support Name Relationship Address Phone [facility] Unknown [address] + [place] [phone] JEANNA, YASIR [address] + [place] [address] ADEBAYO, MARGARET [facility] [facility] + [place] [address] GAUS, YASIR [address] + [place] [address] ADEBAYO, MARGARET [employer] [facility] + [place] [address] R Unknown Unavailable Unavailable GAUS, YASIR [address] + [place] [address] ADEBAYO, MARGARET [employer] [facility] + [place] [address] R Unknown Unavailable Unavailable GAUS, YASIR [address] + [place] [address] ADEBAYO, MARGARET [facility] [facility] + [place] [address] R Unknown Unavailable Unavailable GAUS, YASIR [address] + [place] [address] ADEBAYO, MARGARET [employer] [facility] + [place] [address] R Unknown Unavailable Unavailable GAUS, YASIR [address] + [place] [address] ADEBAYO, MARGARET [facility] [facility] + [place] [address] R Unknown Unavailable Unavailable GAUS, YASIR [address] [phone] [place] [address] MARGARET FIORE [employer] [facility] + [place] [address] R Unknown Unavailable Unavailable GAUS, YASIR [address] [phone] [place] [address] MARGARET FIORE [employer] [facility] + [place] [address] R Unknown Unavailable Unavailable GAUS, YASIR [address] [phone] [place] [address] MARGARET FIORE [employer] [facility] [phone] [place] [address] R Unknown Unavailable Unavailable GAUS, YASIR [address] [phone] [place] [address] MARGARET FIORE [employer] [facility] [phone] [place] [address] R Unknown Unavailable Unavailable Gaus, Leo (Yasir) Unknown Unavailable + Channing Fioren Parent Unavailable + Gaus, Leo (Yasir) Unknown Unavailable + Adebayo, Margaret Parent Unavailable + Gaus, Leo (Yasir) Unknown Unavailable + Channing Fioren Parent Unavailable + GAUS, YASIR [address] [phone] [place] [address] MARGARET FIORE [employer] [facility] [phone] [place] [address] R Unknown Unavailable Unavailable GAUS, YASIR [id number] [phone] [place] [address] MARGARET FIORE [employer] [facility] [phone] [place] [address] R Unknown Unavailable Unavailable GAUS, YASIR [address] [phone] [place] [address] MARGARET FIORE [employer] [facility] [phone] [place] [address] R Unknown Unavailable Unavailable GAUS, YASIR [id number] [phone] [place] [address] MARGARET FIORE [employer] [facility] [phone] [place] [address] R Unknown Unavailable Unavailable GAUS, YASIR [address] [phone] [place], [place] [address] MARGARET FIORE [facility] [phone] [place] [address] R Unknown Unavailable Unavailable GAUS, YASIR [address] [facility] 1302 [phone] [place] [address] MARGARET FIORE [facility] [phone] [place] [address] R Unknown Unavailable Unavailable Care Team Providers Name Role Phone CARIDAD NAVA Attending Unavailable WIETENAHID, CARIDAD Referring Unavailable Fast, Audrey Primary Care Unavailable CARIDAD NAVA Attending Unavailable WIETENAHID, CARIDAD Referring Unavailable Fast, Audrey Primary Care Unavailable Fast, Audrey Attending Unavailable Fast, Audrey Primary Care Unavailable Fast, Audrey Referring Unavailable Fast, Audrey Attending Unavailable Fast, Audrey Primary Care Unavailable CARIDAD NAVA Attending Unavailable WIETENAHID, CARIDAD Referring Unavailable Fast, Audrey Primary Care Unavailable Fast, Audrey Attending Unavailable Fast, Audrey Referring Unavailable Fast, Adurey Primary Care Unavailable CARIDAD NAVA Attending Unavailable Fast, Audrey Primary Care Unavailable Fast, Audrey Attending Unavailable Fast, Audrey Referring Unavailable Fast, Audrey Primary Care Unavailable Stachowicz Quirino Z Attending Unavailable Stachowicz Quirino Z Referring Unavailable Fast, Audrey Primary Care Unavailable Mark Leger Attending Unavailable Fast, Audrey Referring Unavailable Fast, Audrey Primary Care Unavailable CARIDAD NAVA Attending Unavailable WIETENAHID, CARIDAD Referring Unavailable Fast, Audrey Primary Care Unavailable Minoo Austin Attending Unavailable GeovannaMinoo Referring Unavailable Fast, Audrey Primary Care Unavailable ElisaChanelle hastings Attending Unavailable Fast, Audrey Primary Care Unavailable Elisa Chanelle M Referring Unavailable Fast, Audrey Attending Unavailable Fast, Audrey Referring Unavailable Fast, Audrey Primary Care Unavailable Doug Mcqueen Consulting Unavailable Fast, Audrey Attending Unavailable Fast, Audrey Referring Unavailable Fast, Audrey Primary Care Unavailable CARIDAD NAVA Consulting Unavailable CORDELLETECARIDAD WHITFIELD Attending Unavailable WIETENAHID, CARIDAD Referring Unavailable Fast, Audrey Primary Care Unavailable Fast DO, Audrey A Attending Unavailable Fast DO, Audrey A Referring Unavailable Fast DO, Audrey A Consulting Unavailable Vanfossen, Wen Attending Unavailable Fast, Audrey Referring Unavailable Fast, Audrey Primary Care Unavailable CarlosWen goyal Attending Unavailable Fast, Audrey Referring Unavailable Fast, Audrey Primary Care Unavailable CarlosWen goyal Attending Unavailable Fast, Audrey Referring Unavailable Fast, Audrey Primary Care Unavailable Purpose Purpose PROBLEMS PROBLEMS DATE TYPE CONDITION / CODE ATTENDING STATUS SOURCE 08/11/2018 Unknown M81.0 - Age-related CARIDAD NAVA Active [place] osteoporosis Community without current Hospital pathological Repository fracture / M81.0(ICD-10) 05/27/2018 Unknown E21.1 - Secondary Fast, Audrey Active [place] hyperparathyroidism Community , not elsewhere Hospital classified / Repository E21.1(ICD-10) 05/27/2018 Unknown E55.9 - Vitamin D Fast, Audrey Active [place] deficiency, Community unspecified / Hospital E55.9(ICD-10) Repository 05/27/2018 Unknown 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, 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, unspecified Community / E04.9(ICD-10) Hospital Repository 05/27/2018 Unknown E83.52 - Fast, Audrey Active [place] Hypercalcemia / Community E83.52(ICD-10) Hospital Repository 04/02/2018 Unknown R82.99 - Other Elisa, Chanelle Active [place] abnormal findings M [facility] in urine / Hospital R82.99(ICD-10) Repository 01/21/2018 Unknown R05 - Cough / Geovanna, Active [place] R05(ICD-10) [facility] Hospital Repository 11/21/2017 Unknown M75.42 - Stachowicz, Active [place] Impingement [facility] syndrome of left Hospital shoulder / Repository M75.42(ICD-10) 10/28/2017 Admitting Unspecified lump in [facility], Active [facility] Diagnosis unspecified breast [facility] / N63.0(ICD-10) Repository 10/28/2017 [facility] malignant neoplasm [facility] of breast / Repository Z80.3(ICD-10) 10/28/2017 Admitting Oth contact w and Vankyles forden, Active [facility] Diagnosis (suspected) [facility] exposures hazardous Repository to health / Z77.9(ICD-10) 10/28/2017 Admitting Inconclusive Vanfossen, Active [facility] Diagnosis mammogram / [facility] R92.2(ICD-10) Repository 10/23/2017 Admitting Unspecified lump in [facility], Active [facility] Diagnosis the left breast, [facility] upper outer Repository quadrant / N63.21(ICD-10) 10/23/2017 Admitting Other specified 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 LAB L501.1000 7-18 mg/dL High BUN 19 LAB L501.1100 0.55-1.02 mg/dL Normal CREAT,SERUM 0.69 Result Comment: The validity of the calculated GFR AND GFRAA in patients over 70 years has not been determined. Clinical correlation is essential. LAB L501.1110 >60 mL/min Normal EST GFR 89 Result Comment: Non- GFR Calc LAB L501.1115 >60 mL/min Normal EST GFR - AA 107 Result Comment: GFR Calc LAB L501.1300 10-20 RATIO High BUN/CRE 27.5 LAB L501.2200 8.5-10.1 mg/dL CA Normal 9.6 LAB L501.5300 136-145 mmol/L NA Normal 144 LAB L501.5600 3.5-5.1 mmol/L K Normal 3.7 LAB L501.5900 98-107 mmol/L CL Normal 106 LAB L501.6100 21.0-32.0 mmol/L Normal CO2 30.0 LAB L501.6200 5-15 Normal GAP 8 Performed By: #### L500.2500 #### [facility] [address] [place], [place], [id number] BASIC METABOLIC Collected: 07/28/2018 Status: F Source: [place] PROFILE (BMP) 7:09 AM [facility] REPOSITORY TYPE CODE TESTS RESULT OUT OF RANGE REFERENCE UNITS LAB L501.0100 74-106 mg/dL Normal GLU 103 Result Comment: Fasting Glucose result from 100 to 125 mg/dL suggests IMPAIRED HOMEOSTASIS per A.D.A. criteria. Please note revised GLUCOSE reference range effective 2017. LAB L501.1000 7-18 mg/dL Normal BUN 17 LAB L501.1100 0.55-1.02 mg/dL Normal CREAT,SERUM 0.68 Result Comment: The validity of the calculated GFR AND GFRAA in patients over 70 years has not been determined. Clinical correlation is essential. LAB L501.1110 >60 mL/min Normal EST GFR 90 Result Comment: Non- GFR Calc LAB L501.1115 >60 mL/min Normal EST GFR - AA 109 Result Comment: GFR Calc LAB L501.1300 10-20 RATIO High BUN/CRE 24.8 LAB L501.2200 8.5-10.1 mg/dL CA Normal 9.5 LAB L501.5300 136-145 mmol/L NA Normal 142 LAB L501.5600 3.5-5.1 mmol/L K Normal 3.7 LAB L501.5900 98-107 mmol/L CL Normal 105 LAB L501.6100 21.0-32.0 mmol/L Normal CO2 31.0 LAB L501.6200 5-15 Normal GAP 6 Performed By: #### L500.2500 #### [facility] [address] [place], [place], [id number] COMPREHENSIVE METABOLIC Collected: 07/02/2018 Status: F Source: [place] PROFIL 9:43 AM [facility] REPOSITORY TYPE CODE TESTS RESULT OUT OF RANGE REFERENCE UNITS LAB L501.0100 74-106 mg/dL Normal GLU 104 Result Comment: Fasting Glucose result from 100 to 125 mg/dL suggests IMPAIRED HOMEOSTASIS per A.D.A. criteria. Please note revised GLUCOSE reference range effective 2017. LAB L501.1000 7-18 mg/dL Normal BUN 17 LAB L501.1100 0.55-1.02 mg/dL Normal CREAT,SERUM 0.63 Result Comment: The validity of the calculated GFR AND GFRAA in patients over 70 years has not been determined. Clinical correlation is essential. LAB L501.1110 >60 mL/min Normal EST GFR 98 Result Comment: Non- GFR Calc LAB L501.1115 >60 mL/min Normal EST GFR - AA 119 Result Comment: GFR Calc LAB L501.1300 10-20 RATIO High BUN/CRE 26.8 LAB L501.1500 6.4-8.2 g/dL T Normal PROT 7.3 LAB L501.1800 3.2-5.0 g/dL Normal ALB 4.0 LAB L501.1950 2.2-4.2 g/dL Normal GLOB 3.3 LAB L501.2000 0.9-2.4 RATIO Normal A/G 1.2 LAB L501.2200 8.5-10.1 mg/dL CA Normal 9.7 LAB L501.4100 15-37 U/L Normal AST 17 LAB L501.4305 45-117 U/L Normal ALK P 56 LAB L501.4405 13-56 U/L Normal ALT 35 LAB L501.4600 0.20-1.00 mg/dL T Normal BILI 0.80 LAB L501.5300 136-145 mmol/L NA Normal 138 LAB L501.5600 3.5-5.1 mmol/L K Normal 3.9 LAB L501.5900 98-107 mmol/L CL Normal 103 LAB L501.6100 21.0-32.0 mmol/L Normal CO2 30.0 LAB L501.6200 5-15 Normal GAP 5 Performed By: #### L500.4050 #### [facility] [address] [place], [address] VITAMIN D,25 HYDROXY Collected: 07/02/2018 Status: F Source: [place] 9:43 AM [facility] REPOSITORY TYPE CODE TESTS RESULT OUT OF RANGE REFERENCE UNITS LAB L506.1000 29.95-100.01 ng/mL Normal Vitamin D 58.4 25-OH Result Comment: Vitamin D 25(OH) Status Range Deficiency <20 ng/mL (50nmol/L) Insuffciency 20 - 30 ng/mL (50 - 75 nmol/L) Sufficiency 30 - 100 ng/mL (75 - 250 nmol/L) Toxicity >100 ng/mL (>250 nmol/L) Performed By: #### L506.1000 #### [facility] [address] [place], [address] PTHIN Collected: 07/02/2018 Status: F Source: [place] 9:43 AM [facility] REPOSITORY TYPE CODE TESTS RESULT OUT OF RANGE REFERENCE UNITS LAB L509.1000 18.4-80.1 pg/mL Normal PTHIN 67.1 Performed By: #### L509.1000 #### [facility] [address] [place], [address] PTHIN Collected: 05/27/2018 Status: F Source: [place] 8:07 AM [facility] REPOSITORY Order Comment: DR LAW ORDERED PTHIN/CA DR NAVA ORDERED CMP/PTHIN/VITD TYPE CODE TESTS RESULT OUT OF RANGE REFERENCE UNITS LAB L509.1000 18.4-80.1 pg/mL Normal PTHIN 78.1 Performed By: #### L509.1000 #### [facility] [address] [place], [address] VITAMIN D,25 HYDROXY Collected: 05/27/2018 Status: F Source: [place] 8:07 AM [facility] REPOSITORY Order Comment: DR LAW ORDERED PTHIN/CA DR NAVA ORDERED CMP/PTHIN/VITD TYPE CODE TESTS RESULT OUT OF RANGE REFERENCE UNITS LAB L506.1000 29.95-100.01 ng/mL Normal Vitamin D 68.3 25-OH Result Comment: Vitamin D 25(OH) Status Range Deficiency <20 ng/mL (50nmol/L) Insuffciency 20 - 30 ng/mL (50 - 75 nmol/L) Sufficiency 30 - 100 ng/mL (75 - 250 nmol/L) Toxicity >100 ng/mL (>250 nmol/L) Performed By: #### L506.1000 #### [facility] [address] [place], [address] COMPREHENSIVE METABOLIC Collected: 05/27/2018 Status: F Source: [place] SIMMS 8:07 AM [facility] REPOSITORY Order Comment: DR LAW ORDERED PTHIN/CA DR NAVA ORDERED CMP/PTHIN/VITD TYPE CODE TESTS RESULT OUT OF RANGE REFERENCE UNITS LAB L501.0100 74-106 mg/dL Normal GLU 98 Result Comment: Please note revised GLUCOSE reference range effective 2017. LAB L501.1000 7-18 mg/dL High BUN 20 LAB L501.1100 0.55-1.02 mg/dL Normal CREAT,SERUM 0.64 Result Comment: The validity of the calculated GFR AND GFRAA in patients over 70 years has not been determined. Clinical correlation is essential. LAB L501.1110 >60 mL/min Normal EST GFR 97 Result Comment: Non- GFR Calc LAB L501.1115 >60 mL/min Normal EST GFR - AA 118 Result Comment: GFR Calc LAB L501.1300 10-20 RATIO High BUN/CRE 31.3 LAB L501.1500 6.4-8.2 g/dL T Normal PROT 7.5 LAB L501.1800 3.2-5.0 g/dL Normal ALB 3.9 LAB L501.1950 2.2-4.2 g/dL Normal GLOB 3.6 LAB L501.2000 0.9-2.4 RATIO Normal A/G 1.1 LAB L501.2200 8.5-10.1 mg/dL CA Normal 9.6 LAB L501.4100 15-37 U/L Normal AST 21 LAB L501.4305 45-117 U/L Normal ALK P 65 LAB L501.4405 13-56 U/L Normal ALT 50 LAB L501.4600 0.20-1.00 mg/dL T Normal BILI 0.70 LAB L501.5300 136-145 mmol/L NA Normal 142 LAB L501.5600 3.5-5.1 mmol/L K Normal 4.1 LAB L501.5900 98-107 mmol/L CL Normal 104 LAB L501.6100 21.0-32.0 mmol/L Normal CO2 31.0 LAB L501.6200 5-15 Normal GAP 7 Performed By: #### L500.4050 #### [facility] [address] [place], [address] CALCANEUS MIN 2 VIEWS Observed: 04/29/2018 Status: F Source: [place] 1:12 PM [facility] REPOSITORY [facility] Imaging Services [address] [place] [address] Calcaneus min 2 Views MR#: [id number] Acct: [id number] Name: ROSA MEEKS Rep #: [id number] : 1945 F 72 From: Malachi Qureshi MD PCP: Audrey Law DO Status: REG CLI Study: Calcaneus min 2 Views Date of Exam: 04/29/18 Exam# [id number] Ordering Dr: Audrey Law DO STUDY: X-RAY - LEFT CALCANEUS REASON FOR EXAM: Female, 72 years old. (Fasciitis. TECHNIQUE: 2 view(s) of the calcaneus were obtained. COMPARISON: None. FINDINGS: There is demineralization of the osseous structures. There is a plantar calcaneal spur. There is no demonstrated acute fracture. There are questionable faint calcifications in the soft tissues on the plantar aspect of the calcaneus. RAD/Calcaneus min 2 Views IMPRESSION: Plantar calcaneal spur. Electronically Signed: Malachi Qureshi MD at 3:42 EDT Tel , Service support , CC: Audrey Law DO Retail Sales Associate Bilingual: Signed Observed: 04/01/2018 Status: F Source: [place] CULTURE, URINE 9:30 AM [facility] REPOSITORY Urine Culture ORGANISM 1: Mixed Gram Positive Organisms [place] Count 1000-10,000 MIX CULTURE Mixed contaminants. Submit a new specimen if indicated. Performed By: #### M100.0650 #### [facility] [address] [place], [address] CARDIOLOGY VISIT Observed: 11/19/2017 Status: F Source: [place] REPORT 10:08 AM [facility] REPOSITORY [facility] [address] [place] [address] OFFICE VISIT Date of Service: 11/19/17 MR#: [id number] Acct: [id number] Name: ROSA MEEKS Rep #: [id number] : 1945 Provider: Mark Leger MD Age/Sex: 72/F [place] [facility] Status: Signed HPI HPI Chief Complaint: Follow-up visit. Details: ROSA MEEKS, is a 72 F who presents to the office today for a follow-up visit. She is [...] lb 11/19/17 Body Mass Index (BMI) 27.8 11/19/17 Blood Pressure 110/70 Intake Visit Reasons: 1 Y FU Is patient in pain?: No Allergies minocycline HCl [From Minocin] Adverse Reaction (Verified 11/19/17 09:31) Other Skin Cleanser Combination No.4 [From Minocin] Adverse Reaction (Verified 11/19/17 09:31) Other Sulfa (Sulfonamide Antibiotics) Adverse Reaction (Verified 11/19/17 09:31) Other Medications Atorvastatin Calcium [Lipitor] 10 mg PO DAILY 12/04/13 [History Confirmed 11/19/17] Folic Acid 0.8 mg PO DAILY 12/04/13 [History Confirmed 11/19/17] Albuterol Inhaler [Ventolin Hfa] 1 - 2 puff INHALATION Q4H PRN PRN #1 inhaler 12/08/13 [Rx Confirmed 11/19/17] ascorbic acid (vitamin C) 1,000 mg tablet 1 g PO QDAY tab 11/15/17 [History Confirmed 11/19/17] budesonide-formoterol HFA 160 mcg-4.5 mcg/actuation aerosol inhaler 2 puff INHALATION BID 11/15/17 [History Confirmed 11/19/17] cholecalciferol (vitamin D3) 2,000 unit capsule 4,000 unit PO QDAY cap 11/15/17 [History Confirmed 11/19/17] indapamide 1.25 mg tablet 1.25 mg PO QAM 11/15/17 [History Confirmed 11/19/17] methenamine mandelate 0.5 g tablet 0.5 g PO HS tab 11/15/17 [History Confirmed 11/19/17] metoprolol succinate ER 50 mg tablet,extended release 24 hr 50 mg PO QDAY tab 11/15/17 [History Confirmed 11/19/17] omeprazole 40 mg capsule,delayed release 40 mg PO QDAY 11/15/17 [History Confirmed 11/19/17] calcium-vitamin D3-vitamin K 500 mg-1,000 unit-40 mcg chewable tablet tab PO .q day ea 11/19/17 [History Confirmed 11/19/17] coenzyme Q10 100 mg capsule 100 mg PO QDAY 11/19/17 [History Confirmed 11/19/17] cyanocobalamin (vit B-12) 500 mcg tablet 500 mcg PO QDAY 11/19/17 [History Confirmed 11/19/17] magnesium 250 mg tablet 500 mg PO QDAY tab 11/19/17 [History Confirmed 11/19/17] omega-3 fatty acids 1,000 mg capsule 1,000 mg PO QDAY 11/19/17 [History Confirmed 11/19/17] turmeric root extract 500 mg capsule 500 mg PO QDAY 11/19/17 [History Confirmed 11/19/17] Ejection fraction %: 60 to 64 PFSH Medical History Hyperlipidemia (Chronic) Palpitations (Chronic) Restrictive airway disease (Chronic) Bronchospasm (Chronic) History of kidney stones (Chronic) Surgical History History of total abdominal hysterectomy (Chronic) Family History Father , Age 81 Prostate cancer Social History Smoking Status: Never smoker ROS Const Const: Negative for fatigue, weakness, body ache, fever(s), headache(s), chills, frequent falls, night sweats, daytime sleepiness, difficulty sleeping, excessive sweating, weight gain, weight loss, increased appetite, poor appetite, anorexia or other Eyes Eyes: Negative for blind spots, loss of peripheral vision, transient loss of vision, blurry vision, change in vision, double vision, floaters, tunnel vision or other ENT ENT: Negative for headache(s), dizziness, hearing loss, tinnitus, Nosebleed/epistaxis, balance problems, post nasal drip, lip swelling, tongue swelling, bleeding gums, hoarseness, neck pain, dry mouth or other Cardio Chest Pain: No Palpitations: No Edema: None, Bilateral (Occasional, about once a month needs prn Lasix. States has done for years) Muscle aches with walking: None Resp Respiratory: Positive for SOB with activity (Dx with asthma); negative for SOB at rest, SOB orthopnea\SOB lying down, Coughing up blood/hemoptysis, chest congestion, pain on inspiration, snoring, stridor, wheezing, crackles, paroxysmal nocturnal dyspnea or other GI GI: Negative nausea, vomiting, heartburn, constipation, belching, bloating, cramping, vomiting blood/hematemesis, bright, red blood in stools, black,tarry stools, loose stools, Difficulty Swallowing or other : Negative for hematuria, frequent nighttime urination/ nocturia, erectile dysfunction or abnormal vaginal bleeding Musc Musc: Positive for joint pain (Left arm rotator cuff : going to PT for it.); negative for balance problems, muscle aches/ myalgia or muscle weakness Skin Skin: Negative redness, non-healing lesions, rash, unusual bruising, skin ulcer, wounds, jaundice or other Neuro Neuro: Negative for weakness, headache(s), frequent falls, blurry vision, double vision, dizziness, lightheadedness, near syncope, syncope, orthostatic symptoms, confusion, memory loss, restless legs, vertigo, seizures, lack of coordination or other Jim Hematologic/Lymphatic: Negative for easy bleeding, easy bruising, enlarged lymph nodes or other Endo Endo: Negative for fatigue, excessive sweating, cold intolerance, heat intolerance, flushing, increased thirst/drinking, increased hunger, hair loss, hair growth or other Psych Psych: Negative for anxiety, depression, thoughts of harming anyone, thoughts of harming yourself, visual hallucinations, panic attacks or audible hallucinations Allergy Allergy/Immunology: Negative for lip swelling, Negative for tongue swelling, Negative for rash, Negative for throat swelling, Negative for hives Cardiology Exam Const Appearance: cooperative, healthy appearing, well developed, well groomed and no acute distress Nutritional Appearance: well nourished and average body habitus Orientation: alert, awake and oriented x3 Head Head: normal to inspection, normocephalic and atraumatic Ears: hearing grossly normal bilaterally and external ears normal Nose: external nose normal, nasal mucous membranes and turbinates normal, nares normal, septum normal, no nasal discharge Face and Sinus: face symmetric Mouth: oral mucosae normal, tongue normal, oropharynx normal and moist mucous membranes Teeth and gingiva: dentition normal Throat: posterior oropharynx normal, tonsils normal and uvula midline Eyes General: appearance normal, both eyes and all related structures Eyelids: eyelids normal Conjunctivae: conjunctivae normal Pupils: PERRL, normal by confrontation and accommodation normal EOM: EOM intact bilaterally Neck Neck: normal visual inspection, trachea midline [...] Bilateral Musculoskel Musculoskeletal: No joint tenderness Psych Psychological: normal affect Assessment AND Plan 1. Palpitations R00.2 Plan Patient appears to be doing much better now. 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 [place], [place] [address] Fax REHABILITATION SERVICES DISCHARGE SUMMARY MR#: [id number] Acct: [id number] Name: RSOA MEEKS Rep #: [id number] : 1945 72 From: Vesna Albert PT, Cert. MDT Referring Dr.: Quirino Bueno MD Status: REG RCR Insurance: [employer] [facility] SELF PAY INSURANCE HP - PT D/C Summary It has been my pleasure to treat ROSA MEEKS under orders from Quirino Bueno, , for the diagnosis of L RTC IMPINGEMENT SYNDROME AND PAIN. for a total of 10 visit(s). Discharge [...] UE MRI AND R/O OF CERVICAL. UPON EXAM, MMT - LUE: SHOULDER FLEX 3-/5, ABD 2+/5, IR 3-/5, ER 3/5, ELBOW 5/5. MID RANGE SEATED LEFT SHOULDER IR 5/5 AND ER 4-/5. NO INCREASED PAIN WITH MMT OF LEFT UE IN SITTING WITH ELBOW AT SIDE. Sensory deficit: NO. PAULA UE'S INTACT AND SYMMETRICAL INCLUDING LEFT THUMB. ROM deficit: AROM LEFT SHOULDER FLEX IN SITTING 140 DEG, ABD 170 DEG. SUPINE LEFT SHOULDER FLEX 155 DEG PASSIVELY. ABD 100 DEG WITH PAIN DURING MVMT AND AT THE END OF THE AVAILABLE RANGE. ER IN SUPINE WITH 80 DEG ABD IS 85 DEG, IR 60 DEG. Reflexes: 2/3 PAUAL UE'S. Cervical Mvmt Loss: Flex: NIL. Pro: NIL. Ext: LEX. Ret: LEX. RSB: MOD. LSB: MOD. R Rot: MOD. L Rot: MOD. PATIENT DENIES LEFT UE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 [facility] Repository 10/28/2017 [id number] Ambulatory [facility] Repository 10/23/2017 [id number] Ambulatory [facility] Repository 10/10/2017 [id number] [facility] Hospital ding:USHP Repository 10/07/2017 [id number] [facility]BI Repository 09/26/2017 [id number] [facility] Hospital ding:LABSPEC Repository 09/23/2017 [id number] [facility] Hospital ding:LAB Repository 09/23/2017 [id number] [facility] Hospital ding:CVS Repository 09/16/2017 [id number] Ambulatory [facility] Hospital ding:MRI Repository FUNCTIONAL STATUS FUNCTIONAL STATUS No Functional Status Records FoundEQUIPMENT EQUIPMENT No Equipment Records FoundPAYERS PAYERS ENCOUNTER GUARANTOR PAYER SUBSCRIBER SOURCE 08/19/2018 ROSA GAUSDOB: Primary ROSA GAUSDOB: OHIP Practices Insurance:[employer] Life [id number] Repository [facility]/[address], [place] Number: [address] [place] [address]Hyt: 419 [id number]: (HP) Date:[id number] [phone] (HP) Name:[address] KEMI Frias [id number]: 08/19/2018 Secondary Alfonso GausDOB: OHIP Practices Insurance:Medical [id number] Repository [place] [facility], Number: [place] [id number]: [id number] Date:2009-08-12 - (HP) [id number] Name:[address] [address], [place] [address]YS: 08/19/2018 Tertiary ROSA GAUSDOB: OHIP Practices Insurance:ANTARES/EHP [id number] Repository Policy Number: [facility] Effective Date: - [address] [place] [address] [id number]: (419) Name:F*[phone] () [phone] not useBROADVIEW [place], [place] [phone]: 08/19/2018 Tertiary ROSA GAUSDOB: OHIP Practices Insurance:Healy/EHP [id number] Repository Policy Number: [facility] [id number] [address] [place] [address] Date:2010-08-12 - [id number]: (419) [id number] [phone] (HP) Name:[address] [address]g, [place] [address]RK: 08/19/2018 Tertiary ROSA GAUSDOB: OHIP Practices Insurance:[employer] Life [id number] [facility]/[address] Number: [address] [id number] [address]Puh: 419) Date:2011-12-11 [phone] (HP) [id number] Name:[facility] [address]RdKEMI Looney [id number]: 08/11/2018 ROSA MON5 Primary [place]A [address], Insurance:AETNA GAUSDOB: [place] [address]Htb: MCRPolicy Number: [id number] Hospital [id number] Repository (HP) Date:9097-11-44BH [facility] [id number] [place] [address]NU: 08/11/2018 Secondary NOT GIVENUNK [place] Insurance:SELF PAY [facility] Number: Effective Repository Date:2018-08-11 07/28/2018 ROSA MON5 Primary [facility]A [address], Insurance:AETNA GAUSDOB: [facility] [place] [address]Yvo: [facility] Number: [id number] Hospital [id number] Repository (HP) Date:2551-33-53[address] [place] [address]WC: 07/28/2018 Secondary NOT GIVENUNK [place] Insurance:SELF PAY [facility] Number: Effective Repository Date:2018-07-28 07/02/2018 ROSA MEEKS635 Primary ROSA [address], Insurance:AETNA GAUSDOB: [place] [address]Kqu: MCRPolicy Number: [id number] Hospital [id number] Repository (HP) Date:9183-25-54[address] [place] [address]EK: 07/02/2018 Secondary NOT GIVENUNK [place] Insurance:SELF PAY [facility] Number: Effective Repository Date:2018-07-02 05/27/2018 ROSA MON5 Primary ROSA [address], Insurance:AETNA GAUSDOB: [place] [id number]: MCRPolicy Number: [id number] Hospital [id number] Repository (HP) Date:5759-19-83[address], [place] [address]CF: 05/27/2018 Secondary NOT GIVENUNK [place] Insurance:SELF PAY [facility] Number: Effective Repository Date:2018-05-27 04/29/2018 ROSA DAVIS Primary ROSA [address], Insurance:AETNA GAUSDOB: [facility] [place] [address]Qgf: [facility]icy Number: [id number] Hospital [id number] Repository (HP) Date:5497-54-76[address], [place] [address]EY: 04/29/2018 Secondary NOT GIVENUNK [place] Insurance:SELF PAY [facility] Number: Effective Repository Date:2018-04-29 04/01/2018 ROSA MON5 Primary ROSA [address], Insurance:AETNA GAUSDOB: [facility] [place] [address]Uql: [facility]y Number: [id number] Hospital [id number] Repository (HP) Date:1493-74-72WI [address] [address]PR: 04/01/2018 Secondary NOT GIVENUNK [place] Insurance:SELF PAY [facility] Number: Effective Repository Date:2018-04-01 01/21/2018 ROSA DAVIS Primary ROSA [address], Insurance:AETNA GAUSDOB: [place] [address]Jvj: MCRClearsky Rehabilitation Hospital Of Av[facility]aleicy Number: [id number] Hospital [phone] [id number] Repository -6 (HP) Date:0307-34-77QY [address] [address]QT: 01/21/2018 Secondary NOT GIVENUNK [place] Insurance:SELF PAY [facility] Number: Effective Repository Date:2018-01-21 11/19/2017 ROSA MEEKS635 Primary ROSA Zabrina [place] [address], Insurance:AETNA GAUSDOB: [place] [address]Xce: MCRPolicy Number: [id number] Hospital [phone] [id number] Repository -6 (HP) Date:6920-22-55OB [address] [place] [address]DG: 11/19/2017 Secondary NOT GIVENUNK [place] Insurance:SELF PAY [facility] Number: Effective Repository Date:2017-11-19 11/18/2017 Rosa Meeks635 Primary Rosa Zabrina [place] [address], Insurance:AETNA GausDOB: [place] [address]Gqj: [facility]ENTERPolicy Number: [id number] Hospital [phone] [id number] Repository -6 (HP) Date:2300-13-91JR [address] [place] [address]TI: 11/18/2017 Secondary NOT GIVENUNK [place] Insurance:SELF PAY [facility] Number: Effective Repository Date:2017-11-18 11/18/2017 Rosasherie Meeks635 Primary Rosa Zabrina [place] [address], Insurance:AETNA GausDOB: [place] [address]Osm: MCRPolicy Number: [id number] Hospital [phone] [id number] Repository -6 (HP) Date:8835-61-34DJ [address] [place] [address]ML: 11/18/2017 Secondary NOT GIVENUNK [place] Insurance:SELF PAY [facility] Number: Effective Repository Date:2017-10-16 10/28/2017 Rosa GausDOB: Primary Rosa GausDOB: [employer] Insurance:AetnaPolicy [id number] [place] [address] [place] [address], Number: Effective Repository [place] [address]Lrc: Date: (HP) 10/28/2017 Rosa GausDOB: Primary Rosa GausDOB: [employer] Insurance:AetnaPolicy [id number] [place] [address], Number: Effective Repository [place] [address]Kzw: Date: (HP) 10/23/2017 Rosa GausDOB: Primary Rosa GausDOB: [employer] Insurance:AetnaPolicy [id number] [place] [address], Number: Effective Repository [place] [address]Ghr: Date: (HP) 10/10/2017 Rosa M [id number] Primary [place] [address] [place] [address], Insurance:AETNA GausDOB: [place] [address]Bbw: [facility] CENTERPolva [facility] Number: [id number] Hospital [phone] [id number] Repository -6 (HP) Date:6163-52-07DZ [facility] [address] [address]GP: 10/10/2017 Secondary NOT GIVENUNK [place] Insurance:SELF PAY [facility] Number: Effective Repository Date:2017-10-09 10/07/2017 Rosa M [id number] Primary Rosa M [place] [address] [place] [address], Insurance:AETNA GausDOB: [place] [address]Axg: [facility] MED[facility] CENTERPolic Number: [id number] Hospital [phone] [id number] Repository -6 (HP) Date:3096-83-23KV [facility] [address], [place] [address]NV: 10/07/2017 Secondary NOT GIVENUNK [place] Insurance:SELF PAY [facility] Number: Effective Repository Date:2017-09-10 09/26/2017 Rosa Mon5 Primary Rosa [address], Insurance:AETNA GausDOB: [facility] [place] [address]Soy: [facility]y Number: [id number] Hospital [phone] [id number] Repository -6 (HP) Date:9804-28-64QU [address] [place] [address]VC: 09/26/2017 Secondary NOT GIVENUNK [place] Insurance:SELF PAY [facility] Number: Effective Repository Date:2017-09-26 09/23/2017 Rosa Mon5 Primary Rosa [address], Insurance:AETNA GausDOB: [facility] [place] [address]Tyb: [facility] CENTERPoly Number: [id number] Hospital [id number] Repository (HP) Date:8854-31-86[address] [address]KA: 09/23/2017 Secondary NOT GIVENUNK [place] Insurance:SELF PAY [facility] Number: Effective Repository Date:2017-09-23 09/23/2017 Rosa Davis Primary NOT GIVENUNK [place] [address], Insurance:SELF PAY [facility] [address]Rop: [facility] Number: Effective Repository (HP) Date:2017-09-10 09/16/2017 Rosa Davis Primary Rosa [address], Insurance:AETNA GausDOB: [facility] [place] [address]Cmj: [facility] CENTERPolicy Number: [id number] Hospital [id number] Repository (HP) Date:6019-35-26OC [address] [place] [address]MK: 09/16/2017 Secondary NOT GIVENUNK [place] Insurance:SELF PAY [facility] Number: Effective Repository Date:2017-09-10 SOCIAL HISTORY SOCIAL HISTORY No Social History Records FoundFAMILY HISTORY FAMILY HISTORY No Family History Records FoundADVANCE DIRECTIVES ADVANCE DIRECTIVES No Advanced Directives Records FoundINFORMATION SOURCE INFORMATION SOURCE DATE CREATED AUTHOR AUTHOR'S ORGANIZATION 09/03/2018 SUADIP
== END ==
PROVIDERS: Family Provider Internal Medicine; PCP Internal Medicine; Referring Provider Internal Medicine Endocrinology, Diabetes & Metabolism; Visit Provider Internal Medicine Endocrinology, Diabetes & Metabolism
DX: M81.0 Age-related osteoporosis without current pathological fracture (principal)
CPT/HCPCS: 36415; 80048

== ENCOUNTER → 2018-08-11 07:23 | Outpatient (CLI) | payer MEDICARE, SELFPAY ==
[2017-11-19 09:28] VITALS: BMI 27.8
[2018-08-11 07:59] LABS: Anion Gap 8 (5-15); BUN 19 mg/dL (7-18); BUN/Creat Ratio 27.5 RATIO (10-20); Calcium,Total 9.6 mg/dL (8.5-10.1); Chloride 106 mmol/L (98-107); Creatinine, Serum 0.69 mg/dL (0.55-1.02); EST Glomerular Filtration Rate 89 mL/min (>60); Est Glom Filt Rate - Afr Amer 107 mL/min (>60); Glucose 98 mg/dL (74-106); Potassium 3.7 mmol/L (3.5-5.1); Sodium Level 144 mmol/L (136-145)
== END ==
PROVIDERS: Family Provider Internal Medicine; PCP Internal Medicine; Referring Provider Internal Medicine Endocrinology, Diabetes & Metabolism; Visit Provider Internal Medicine Endocrinology, Diabetes & Metabolism
DX: M81.0 Age-related osteoporosis without current pathological fracture (principal)
CPT/HCPCS: 36415; 80048

== ENCOUNTER → 2018-10-11 10:35 | Outpatient (CLI) | payer MEDICARE, SELFPAY ==
[2017-11-19 09:28] VITALS: BMI 27.8
[2018-10-11 11:12] LABS: Calcium,Total 9.7 mg/dL (8.5-10.1)
== END ==
PROVIDERS: Family Provider Internal Medicine; PCP Internal Medicine; Referring Provider Internal Medicine; Visit Provider Internal Medicine
DX: E83.52 Hypercalcemia (principal)
CPT/HCPCS: 36415; 82310

== ENCOUNTER → 2018-10-16 07:58 | Outpatient (CLI) | payer MEDICARE, SELFPAY ==
--- NOTE | 2018-10-16 08:00 | BI_ITS ---
MAMMOGRAPHY - BILATERAL SCREENING REASON FOR EXAM: Female, 72 years old. Routine annual screening examination. PERTINENT HISTORY: Daughter with breast cancer. History of prior bilateral excisional breast biopsies. TECHNIQUE: Digital bilateral breast boyd (3D mammographic acquisition) in the CC and MLO projections. 2-D mediolateral oblique (MLO) and craniocaudad (CC) views of both breasts were obtained. CAD: Full Field Digital Mammography with Computer Added Detection was performed. COMPARISON: Comparison is made with prior study dated October 07, 2017 and August 07, 2016. FINDINGS: Breast Composition: The breasts are heterogeneously dense, which may obscure small masses. There are no dominant masses or suspicious calcifications. Stable 5.3 mm x 6.5 mm well-defined nodule in the upper lateral aspect of the left breast. Stable appearance of the bilateral axillary lymph nodes. No other significant abnormalities are identified. There has been no significant change since the prior study. BI/SCREENING MAMM (CAD), BILAT IMPRESSION: Stable bilateral screening mammogram. Yearly follow-up mammogram recommended. (A) ASSESSMENT CATEGORY: BIRADS Category 2: Benign. A letter regarding these results will be sent to the patient by the facility within 30 days. Approximately 10% of breast cancers are not detected by mammography. A normal mammogram should not delay biopsy of a clinically suspicious abnormality. [id number] Electronically Signed: Corey Rodriguze, at 9:39 EST , Service support ,
== END ==
PROVIDERS: Family Provider Internal Medicine; PCP Internal Medicine; Referring Provider Internal Medicine; Visit Provider Internal Medicine
DX: Z12.31 Encounter for screening mammogram for malignant neoplasm of breast (principal)
CPT/HCPCS: 77063; 77067

== ENCOUNTER → 2018-10-21 09:08 | Outpatient (CLI) | payer MEDICARE, SELFPAY ==
[2017-11-19 09:28] VITALS: BMI 27.8
[2018-10-21 10:38] LABS: Vitamin D,25 Hydroxy 66.2 ng/mL (29.95-100.01)
[2018-10-21 10:39] LABS: ALB/GLOB Ratio 1.2 RATIO (0.9-2.4); AST(SGOT) 19 U/L (15-37); Alanine Aminotransfer ALT/SGPT 33 U/L (13-56); Alkaline Phosphatase 56 U/L (45-117); Anion Gap 10 (5-15); BUN 16 mg/dL (7-18); BUN/Creat Ratio 24.8 RATIO (10-20); Calcium,Total 9.5 mg/dL (8.5-10.1); Chloride 104 mmol/L (98-107); Creatinine, Serum 0.65 mg/dL (0.55-1.02); EST Glomerular Filtration Rate 96 mL/min (>60); Est Glom Filt Rate - Afr Amer 116 mL/min (>60); Globulin 3.2 g/dL (2.2-4.2); Glucose 103 mg/dL (74-106); Magnesium 2.4 mg/dL (1.6-2.6); PTHIN 82.3 pg/mL (18.4-80.1); Potassium 3.6 mmol/L (3.5-5.1); Protein, Total 7.2 g/dL (6.4-8.2); Sodium Level 143 mmol/L (136-145)
== END ==
PROVIDERS: Family Provider Internal Medicine; PCP Internal Medicine; Referring Provider Internal Medicine Endocrinology, Diabetes & Metabolism; Visit Provider Internal Medicine Endocrinology, Diabetes & Metabolism
DX: M81.0 Age-related osteoporosis without current pathological fracture (principal); E83.42 Hypomagnesemia; E21.1 Secondary hyperparathyroidism, not elsewhere classified; E55.9 Vitamin D deficiency, unspecified
CPT/HCPCS: 36415; 80053; 82306; 83735; 83970

== ENCOUNTER → 2018-11-20 | Outpatient (CLI) | payer MEDICARE, SELFPAY ==
[2018-11-20 09:37] LABS: Anion Gap 8 (5-15); BUN 17 mg/dL (7-18); BUN/Creat Ratio 25.2 RATIO (10-20); Calcium,Total 9.8 mg/dL (8.5-10.1); Chloride 101 mmol/L (98-107); Creatinine, Serum 0.68 mg/dL (0.55-1.02); EST Glomerular Filtration Rate 91 mL/min (>60); Est Glom Filt Rate - Afr Amer 110 mL/min (>60); Glucose 108 mg/dL (74-106); Potassium 3.3 mmol/L (3.5-5.1); Sodium Level 142 mmol/L (136-145)
== END | disposition home or self-care (01) ==
LOC: LAB 08:13
PROVIDERS: Family Provider Internal Medicine; PCP Internal Medicine; Referring Provider Internal Medicine Endocrinology, Diabetes & Metabolism; Visit Provider Internal Medicine Endocrinology, Diabetes & Metabolism
DX: E21.1 Secondary hyperparathyroidism, not elsewhere classified (principal)
CPT/HCPCS: 36415; 80048

== ENCOUNTER → 2018-12-05 | Outpatient (CLI) | payer MEDICARE, SELFPAY ==
[2018-11-25 09:01] VITALS: BMI 27.1
[2018-12-05 11:00] LABS: Anion Gap 6 (5-15); BUN 19 mg/dL (7-18); BUN/Creat Ratio 27.8 RATIO (10-20); Calcium,Total 9.9 mg/dL (8.5-10.1); Chloride 104 mmol/L (98-107); Creatinine, Serum 0.68 mg/dL (0.55-1.02); EST Glomerular Filtration Rate 90 mL/min (>60); Est Glom Filt Rate - Afr Amer 109 mL/min (>60); Glucose 96 mg/dL (74-106); Potassium 3.6 mmol/L (3.5-5.1); Sodium Level 142 mmol/L (136-145)
== END | disposition home or self-care (01) ==
LOC: LAB 09:50
PROVIDERS: Family Provider Internal Medicine; PCP Internal Medicine; Referring Provider Internal Medicine Endocrinology, Diabetes & Metabolism; Visit Provider Internal Medicine Endocrinology, Diabetes & Metabolism
DX: E04.9 Nontoxic goiter, unspecified (principal)
CPT/HCPCS: 36415; 80048

== ENCOUNTER → 2019-01-24 | Outpatient (CLI) | payer MEDICARE, SELFPAY ==
[2018-11-25 09:01] VITALS: BMI 27.1
[2019-01-24 09:59] LABS: Absolute Neutrophil Count 3.3 X10^3/uL (2.0-7.7); Basophil# 0.01 X10^3/uL; Basophil% 0.2 % (0-1); Eosinophil# 0.42 X10^3/uL; Eosinophils% 7.4 % (0-5); Hemoglobin 14.4 g/dl (12.0-15.0); Lymphocyte % 28.2 % (19-41); Mean Corp Hgb Conc 35.1 g/gl (32-36); Mean Corpuscular Hgb 31.9 pg (27.0-32.0); Mean Corpuscular Volume 90.9 fL (81-99); Monocyte# 0.38 X10^3/uL; Monocyte% 6.7 % (0-10); Neutrophil # 3.26 X10^3/uL (2.7-7.7); Neutrophil % 57.3 % (47-70); Platelet Count 251 K/mm3 (150-450); RBC Distribution Width CV 12.9 % (11.6-14.6); RBC Distribution Width SD 42.6 fl (35.1-43.9); Red Blood Count 4.51 M/mm3 (4.2-5.4); White Blood Count 5.7 K/mm3 (4.4-11.0)
[2019-01-24 10:08] LABS: POSITIVE COUNT NO; POSITIVE DIFFERENTIAL NO; POSITIVE MORPHOLOGY NO
[2019-01-24 10:24] LABS: ALB/GLOB Ratio 1.2 RATIO (0.9-2.4); AST(SGOT) 18 U/L (15-37); Alanine Aminotransfer ALT/SGPT 31 U/L (13-56); Albumin, Serum 3.9 g/dL (3.2-5.0); Alkaline Phosphatase 59 U/L (45-117); Anion Gap 3 (5-15); BUN 18 mg/dL (7-18); Calcium,Total 9.6 mg/dL (8.5-10.1); Chloride 101 mmol/L (98-107); Cholesterol 186 mg/dL (200); Creatinine, Serum 0.72 mg/dL (0.55-1.02); EST Glomerular Filtration Rate 85 mL/min (>60); Est Glom Filt Rate - Afr Amer 103 mL/min (>60); Globulin 3.3 g/dL (2.2-4.2); Glucose 89 mg/dL (74-106); High Density Lipoprotein 51 mg/dL; Potassium 3.5 mmol/L (3.5-5.1); Protein, Total 7.2 g/dL (6.4-8.2); Sodium Level 139 mmol/L (136-145); Triglycerides 166 mg/dL; Very Low Density Lipoprotein 33 mg/dL (5-40)
[2019-01-26 10:00] LABS: PTHIN 51.2 pg/mL (18.4-80.1)
[2019-01-26 10:03] LABS: Vitamin B12 521 pg/mL (211-911)
== END | disposition home or self-care (01) ==
LOC: LAB 09:11
PROVIDERS: Family Provider Internal Medicine; PCP Internal Medicine; Referring Provider Internal Medicine Endocrinology, Diabetes & Metabolism; Visit Provider Internal Medicine Endocrinology, Diabetes & Metabolism
DX: E21.1 Secondary hyperparathyroidism, not elsewhere classified (principal); D51.8 Other vitamin B12 deficiency anemias; E78.49 Other hyperlipidemia; R73.09 Other abnormal glucose
CPT/HCPCS: 36415; 80053; 80061; 82607; 83970; 85025

== ENCOUNTER → 2019-05-14 | Outpatient (CLI) | payer MEDICARE, SELFPAY ==
[2018-11-25 09:01] VITALS: BMI 27.1
== END | disposition home or self-care (01) ==
LOC: LABSPEC 17:16
PROVIDERS: Family Provider Internal Medicine; PCP Internal Medicine; Referring Provider Urology; Visit Provider Urology
DX: N39.0 Urinary tract infection, site not specified (principal); R30.0 Dysuria
CPT/HCPCS: 87086; 87088

== ENCOUNTER → 2019-05-19 | Outpatient (CLI) | payer MEDICARE, SELFPAY ==
[2018-11-25 09:01] VITALS: BMI 27.1
[2019-05-19 08:50] LABS: Absolute Neutrophil Count 2.7 X10^3/uL (2.0-7.7); Basophil# 0.01 X10^3/uL; Basophil% 0.2 % (0-1); Eosinophil# 0.26 X10^3/uL; Eosinophils% 5.6 % (0-5); Hematocrit 42.8 % (37-47); Hemoglobin 14.6 g/dL (12.0-15.0); Lymphocyte % 25.9 % (19-41); Mean Corp Hgb Conc 34.1 g/dL (32-36); Mean Corpuscular Hgb 31.5 pg (27.0-32.0); Mean Corpuscular Volume 92.4 fL (81-99); Mean Platelet Vol. 9.6 fl (6.2-12.0); Monocyte# 0.45 X10^3/uL; Monocyte% 9.7 % (0-10); NRBC Flagged by Analyzer 0 % (0-5); Neutrophil % 58.2 % (47-70); Platelet Count 259 K/mm3 (150-450); RBC Distribution Width CV 12.8 % (11.6-14.6); RBC Distribution Width SD 43.4 fl (35.1-43.9); Red Blood Count 4.63 M/mm3 (4.2-5.4); White Blood Count 4.6 K/mm3 (4.4-11.0)
[2019-05-19 09:18] LABS: ALB/GLOB Ratio 1.2 RATIO (0.9-2.4); AST(SGOT) 17 U/L (15-37); Alanine Aminotransfer ALT/SGPT 27 U/L (13-56); Alkaline Phosphatase 53 U/L (45-117); Anion Gap 7 (5-15); BUN 17 mg/dL (7-18); BUN/Creat Ratio 26.5 RATIO (10-20); Calcium,Total 9.5 mg/dL (8.5-10.1); Chloride 102 mmol/L (98-107); Cholesterol 170 mg/dL (200); Creatinine, Serum 0.64 mg/dL (0.55-1.02); EST Glomerular Filtration Rate 96 mL/min (>60); Est Glom Filt Rate - Afr Amer 117 mL/min (>60); Globulin 3.2 g/dL (2.2-4.2); Glucose 101 mg/dL (74-106); High Density Lipoprotein 48 mg/dL; Potassium 3.4 mmol/L (3.5-5.1); Protein, Total 7.2 g/dL (6.4-8.2); Sodium Level 142 mmol/L (136-145); Triglycerides 112 mg/dL; Very Low Density Lipoprotein 22 mg/dL (5-40)
[2019-05-19 09:19] LABS: Hemoglobin A1c 5.4 % (4.2-6.3)
[2019-05-19 09:55] LABS: Vitamin D,25 Hydroxy 63.6 ng/mL (29.95-100.01)
== END | disposition home or self-care (01) ==
PROVIDERS: Family Provider Internal Medicine; PCP Internal Medicine; Referring Provider Internal Medicine; Visit Provider Internal Medicine
DX: R73.09 Other abnormal glucose (principal); E78.5 Hyperlipidemia, unspecified; E55.9 Vitamin D deficiency, unspecified; D51.8 Other vitamin B12 deficiency anemias; E88.09 Other disorders of plasma-protein metabolism, not elsewhere classified
CPT/HCPCS: 36415; 80053; 80061; 82306; 83036; 85025

== ENCOUNTER → 2019-06-02 | Outpatient (CLI) | payer MEDICARE, SELFPAY ==
[2018-11-25 09:01] VITALS: BMI 27.1
--- NOTE | 2019-06-02 08:31 | RAD_ITS ---
STUDY: X-RAY CHEST REASON FOR EXAM: Female, 73 years old. Chronic cough. TECHNIQUE: PA and lateral views of the chest. COMPARISON: Comparison is made with prior study dated August 07, 2016. FINDINGS: Stable mild increased markings at the lung bases suggestive of scarring. There is no demonstrated pleural abnormality. Normal size heart. Normal mediastinum and debra. Normal visualized pulmonary arteries. There is atherosclerotic calcification of the aortic arch with tortuosity. There is demineralization of the osseous structures. Loss of height of a mid dorsal vertebrae. Healed left rib fractures. There is no demonstrated abnormality of the visualized soft tissue structures of the upper abdomen. RAD/Chest PA and Lateral IMPRESSION: Stable examination. Mild degree of bibasilar scarring. Electronically Signed: Corey Rodriguez, at 9:29 EDT , Service support ,
== END | disposition home or self-care (01) ==
LOC: HPRAD 08:28
PROVIDERS: Family Provider Internal Medicine; PCP Internal Medicine; Referring Provider Internal Medicine; Visit Provider Internal Medicine
DX: R05 Cough (principal)
CPT/HCPCS: 71046

== ENCOUNTER → 2019-06-11 | Outpatient (CLI) | payer MEDICARE, SELFPAY ==
[2018-11-25 09:01] VITALS: BMI 27.1
--- NOTE | 2019-06-12 09:57 | PFTCOMP ---
COMPLETE PULMONARY FUNCTION TEST INTERPRETATION Brief HPI: Patient is a 73 year old female, currently under the care of Dr. Austin, who presents to [facility] for complete pulmonary function tests secondary to diagnosis of cough. Respiratory therapist reports good effort and reproducible results. Interpretation: Forced expiration spirometry shows a mild large airways obstructive ventilatory defect with an FEV1 of 76% predicted. There is a significant bronchodilator response in FVC and FEV1 by strict ATS criteria. Spirograms are of good quality and plateau slowly, indicating slowly emptying areas of the lungs. The respiratory flow volume loop shows decreased expiratory flow rates at all lung volumes consistent with airway obstruction. Lung volumes by body plethysmography show a normal total lung capacity at 3.67 L, 92% predicted. All other lung volumes are within normal limits. Diffusion capacity by carbon monoxide is normal at 106% predicted. The airway resistance is elevated. Compared to previous pulmonary function tests from 05/01/2016, there is been a significant worsening in FVC and FEV1 by 13% and 22% respectively. There has been some improvement in hyperinflation and DLCO has normalized. Impression: Partially reversible mild large airways obstructive ventilatory defect with preserved lung volumes and diffusing capacity.
== END | disposition home or self-care (01) ==
LOC: PSN 08:58
PROVIDERS: Family Provider Internal Medicine; PCP Internal Medicine; Referring Provider Internal Medicine; Visit Provider Internal Medicine
DX: R05 Cough (principal)
CPT/HCPCS: 94060; 94726; 94729

== ENCOUNTER → 2019-08-25 07:42 | Outpatient (CLI) | payer MEDICARE, SELFPAY ==
[2019-08-11 06:32] VITALS: BMI 27.3
--- NOTE | 2019-08-25 07:45 | CT_ITS ---
STUDY: CT CHEST WITHOUT CONTRAST REASON FOR EXAM: Female, 73 years old. 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 Individualized dose optimization techniques were used for this CT. COMPARISON: 02 June 2019, [address] FINDINGS: There is a stable benign scar in the lingula and minimal focal atelectasis in the right middle lobe. There is no pulmonary fibrosis. Lungs are mildly hyperinflated. There are no high risk focal opacities. There are scattered 5 mm low risk nodules, presumed granulomata. Central airways are patent. Pleural surfaces are intact. Mediastinal contents are normal. Cardiac chamber is normal in size and shape. There is advanced coronary artery disease. Aorta and pulmonary artery are unremarkable. Limited upper abdominal images demonstrate 2 left renal upper pole 3 mm calculi. There is no hydronephrosis. There is spondylosis and osteoporosis with chronic compression fracture of T4. Thoracic canal is patent. There are remote partially healed left lateral rib fractures. Appearance is similar to prior. CT/Chest without Contrast IMPRESSION: 1. Benign luminary scars. These do not require follow-up and are stable since 2013. 2. Mild emphysema. 3. Advanced coronary artery disease. 4. Osteoporosis with chronic thoracic compression fracture. 5. Left renal nonobstructing stones. Electronically Signed: Giles Gonzalez, at 17:12 EST Tel , Service support ,
== END ==
PROVIDERS: Family Provider Internal Medicine; PCP Internal Medicine; Referring Provider Internal Medicine Critical Care Medicine; Visit Provider Internal Medicine Critical Care Medicine
DX: M41.9 Scoliosis, unspecified (principal); J98.4 Other disorders of lung
CPT/HCPCS: 71250

== ENCOUNTER → 2019-09-16 06:56 | Outpatient (CLI) | payer MEDICARE, SELFPAY ==
[2019-08-11 06:32] VITALS: BMI 27.3
[2019-09-16 09:01] LABS: ALB/GLOB Ratio 1.2 RATIO (0.9-2.4); AST(SGOT) 17 U/L (15-37); Alanine Aminotransfer ALT/SGPT 27 U/L (13-56); Alkaline Phosphatase 54 U/L (45-117); Anion Gap 4 (5-15); BUN 22 mg/dL (7-18); BUN/Creat Ratio 32.1 RATIO (10-20); Chloride 105 mmol/L (98-107); Creatinine, Serum 0.68 mg/dL (0.55-1.02); EST Glomerular Filtration Rate 89 mL/min (>60); Est Glom Filt Rate - Afr Amer 108 mL/min (>60); Globulin 3.4 g/dL (2.2-4.2); Glucose 100 mg/dL (74-106); Potassium 3.5 mmol/L (3.5-5.1); Protein, Total 7.4 g/dL (6.4-8.2); Sodium Level 141 mmol/L (136-145); Thyroid Stim Hormone (TSH) 1.01 uIU/mL (0.358-3.74)
[2019-09-16 09:22] LABS: PTHIN 54.9 pg/mL (18.4-80.1); Vitamin D,25 Hydroxy 55.1 ng/mL (29.95-100.01)
== END ==
PROVIDERS: PCP Internal Medicine; Referring Provider Internal Medicine Endocrinology, Diabetes & Metabolism; Visit Provider Internal Medicine Endocrinology, Diabetes & Metabolism
DX: E21.1 Secondary hyperparathyroidism, not elsewhere classified (principal); E21.5 Disorder of parathyroid gland, unspecified; E55.9 Vitamin D deficiency, unspecified; E04.9 Nontoxic goiter, unspecified
CPT/HCPCS: 36415; 80053; 82306; 83970; 84443

== ENCOUNTER → 2019-10-20 | Outpatient (CLI) | payer MEDICARE, SELFPAY ==
[2019-08-11 06:32] VITALS: BMI 27.3
--- NOTE | 2019-10-20 08:18 | RAD_ITS ---
STUDY: X-RAY - PELVIS AND BILATERAL HIPS REASON FOR EXAM: Female, 74 years old. Pain, stenosis, loss of 5 inches in height TECHNIQUE: AP view of the pelvis.? 2 views of the right hip, and 2 views of the left hip were obtained. COMPARISON: CT abdomen and pelvis December 04, 2013. FINDINGS: There is a non-specific bowel gas pattern. Normal visualized soft tissue structures. There is stable degenerative changes of the lower lumbar spine. There is mild narrowing and/or cortical sclerosis along the inferior bilateral sacroiliac joints, consistent with degenerative osteoarthritic changes. Normal iliac wings and visualized sacrum. Normal bilateral superior and inferior pubic rami. There are degenerative changes of the pubic symphysis with articular narrowing and sclerosis. Normal bilateral ischial tuberosities. There is no demonstrated acute fracture or osseous destructive lesion Normal visualized right femoral head. Normal right acetabulum. There is stable degenerative calcification/chondrocalcinosis at the superolateral joint margin Normal right hip joint. Normal visualized left femoral head. Normal left acetabulum. Normal left hip joint. Small calcification again seen along the lateral margin of the base of the left greater trochanter. RAD/Hips B/L min 2 views w/ Pelvis IMPRESSION: Stable degenerative changes of the lower lumbar spine, pelvis, and bilateral hips, as described. Electronically Signed: Cristino Pittman MD at 17:00 EDT , Service support ,
--- NOTE | 2019-10-20 08:18 | RAD_ITS ---
STUDY: X-RAY - LUMBAR SPINE REASON FOR EXAM: Female, 74 years old. Pain, stenosis, loss of 5 inches in height TECHNIQUE: 5 view(s) of the lumbar spine were obtained. COMPARISON: CT abdomen and pelvis December 04, 2013 FINDINGS: Normal lumbar lordosis. There is no substantial scoliosis. There is a 6 mm retrolisthesis of L1 on L2, increased from previous study. Minor retrolisthesis of L2 on L3 is unchanged, while slight retrolisthesis of L4 on L5 is more conspicuous today. There is stable grade 1 anterolisthesis of L5 on S1. There is stable multilevel endplate sclerosis and/or spondylosis of the visualized thoracolumbar vertebrae. There is multi-level degenerative disc disease with stable multi-level disc space narrowing. There is mild increased depression of the superior T12 vertebral endplate. There is no demonstrated lumbar fracture. There is degenerative narrowing of the right L2-3 and left L5-S1 facet joints, with mild degenerative sclerosis on the right at L5-S1. There are degenerative arthrosis at the inferior aspect of the bilateral sacroiliac joints. There is atherosclerotic calcification of the abdominal aorta without a demonstrated aneurysm. RAD/L/S Spine Min 4 Views IMPRESSION: 1. Mild to moderate depression of the superior T12 vertebral endplate, mildly increased from 2013. 2. Degenerative changes of the spine, as detailed above, generally stable since November 2013. Retrolistheses of L1 on L2 is mildly increased. Electronically Signed: Cristino Pittman MD at 17:03 EDT , Service support ,
== END | disposition home or self-care (01) ==
LOC: HPRAD 08:15
PROVIDERS: PCP Internal Medicine; Referring Provider Internal Medicine; Visit Provider Internal Medicine
DX: M54.16 Radiculopathy, lumbar region (principal)
CPT/HCPCS: 72110; 73521

== ENCOUNTER → 2019-10-23 | Outpatient (CLI) | payer MEDICARE, SELFPAY ==
[2019-08-11 06:32] VITALS: BMI 27.3
--- NOTE | 2019-10-23 13:11 | BI_ITS ---
MAMMOGRAPHY - BILATERAL SCREENING REASON FOR EXAM: Female, 74 years old. Routine annual screening examination. PERTINENT HISTORY: Daughter with breast cancer. History of prior bilateral excisional breast biopsies. TECHNIQUE: Digital bilateral breast junaid (3D mammographic acquisition) in the CC and MLO projections. 2-D mediolateral oblique (MLO) and craniocaudad (CC) views of both breasts were obtained. CAD: Full Field Digital Mammography with Computer Added Detection was performed. COMPARISON: Comparison is made with prior examination of October 16, 2018 and October 07, 2017. FINDINGS: Breast Composition: The breasts are heterogeneously dense, which may obscure small masses. There are no dominant masses or suspicious calcifications. Stable 5.3 mm x 6 mm well-defined nodule in the upper lateral aspect of the left breast. Stable benign-appearing bilateral axillary lymph nodes. No other significant abnormalities are identified. There has been no significant change since the prior study. BI/SCREEN MAMM (CAD) W/JUNAID BILAT IMPRESSION: Stable bilateral screening mammogram. Yearly follow-up mammogram recommended. (A) ASSESSMENT CATEGORY: BIRADS Category 2: Benign. A letter regarding these results will be sent to the patient by the facility within 30 days. Approximately 10% of breast cancers are not detected by mammography. A normal mammogram should not delay biopsy of a clinically suspicious abnormality. [id number] Electronically Signed: Corey Rodriguez, at 15:36 EDT , Service support ,
--- NOTE | 2019-10-23 13:54 | ECHOD_ITS ---
Reason For Study: CAD Procedure This was a 2D Doppler, Color Flow transthoracic echocardiogram. Exam performed in department. Left Ventricle Normal LV size. Left ventricular systolic function is normal. The estimated ejection fraction is 55 %. Stage 1 diastolic dysfunction. No regional wall motion abnormalities noted. Right Ventricle Normal RV size. Normal systolic function. Atria Normal left atrium. Normal right atrium. Mitral Valve Normal mitral valve. Mild (1+) eccentric mitral valve insufficiency. Tricuspid Valve Normal tricuspid valve. Mild (1+) tricuspid valve insufficiency. Aortic Valve Trisinus/trileaflet aortic valve. Pulmonic Valve The pulmonic valve is not well visualized. Great Vessels Normal aortic root. The pulmonary artery is normal size. Normal inferior vena cava. Pericardium/Pleural No pericardial effusion. MMode/2D Measurements & Calculations LVIDd: 4.9 cm IVSd: 0.86 cm Ao root diam: 2.8 cm LVIDs: 2.9 cm LVPWd: 0.91 cm RVDd: 3.1 cm FS: 40.4 % LAV(MOD-bp): 37.4 ml LA A4 area: 14.0 cm2 LA dimension(2D): 3.2 cm LAV(MOD-bp) Indexed: 23.4 ml/m2 LAV(MOD-sp2): 34.2 ml LAV(MOD-sp4): 34.3 ml RA A4 area: 13.9 cm2 Time Measurements MV dec time: 0.20 sec Doppler Measurements & Calculations MV E max connor: 53.8 cm/sec Lat Peak E' Connor: 6.8 cm/sec Med Peak E' Connor: 5.0 cm/sec MV A max connor: 104.7 cm/sec E/E' lat: 7.9 E/E' med: 10.7 MV E/A: 0.51 Ao V2 max: 96.2 cm/sec LV V1 max: 94.5 cm/sec PA V2 max: 80.1 cm/sec Ao max P.7 mmHg LV V1 max P.6 mmHg TR max connor: 223.1 cm/sec TR max P.9 mmHg Interpretation Summary Normal LV size. Left ventricular systolic function is normal. The estimated ejection fraction is 55 %. Stage 1 diastolic dysfunction. Ordering Physician: Audrey Austin Referring Physician: Audrey Austin Performed By: Myriam Martin RDCS, RVT
== END | disposition home or self-care (01) ==
PROVIDERS: PCP Internal Medicine; Referring Provider Internal Medicine; Visit Provider Internal Medicine
DX: I25.10 Atherosclerotic heart disease of native coronary artery without angina pectoris (principal); Z12.31 Encounter for screening mammogram for malignant neoplasm of breast
CPT/HCPCS: 77063; 77067; 93306

== ENCOUNTER → 2019-10-29 | Outpatient (CLI) | payer SELFPAY ==
[2019-08-11 06:32] VITALS: BMI 27.3
--- NOTE | 2019-10-29 13:08 | CT_ITS ---
STUDY: CARDIAC CALCIUM SCORING - CT CHEST REASON FOR EXAM: Female, 74 years old. !!!!! OVER READ ONLY!!!!!!!!!CALCIUM SCORING RADIATION DOSAGE (If Supplied By Facility): CTDIvol = ( 12.19 ) mGy, DLP = ( 219.42 ) mGycm TECHNIQUE: Axial non-enhanced images were acquired through the heart for the sole purpose of measuring coronary artery calcium. Individualized dose optimization techniques were used for this CT. COMPARISON: None. FINDINGS: Please see the patient''s medical record for a personalized calcium score. There is linear atelectasis in the lingula. The visualized lungs are otherwise clear. There are subcentimeter nonobstructing left renal collecting system stones. The visualized soft tissues are otherwise within normal limits. CT/Limited Chest CT w/CCTA IMPRESSION: Please see the patient''s medical record for a person of this calcium score. Subcentimeter nonobstructing left renal stones. Please go to: [email or web address] , for a description of the calculator. Electronically Signed: Helio German, at 14:18 EDT Tel , Service support ,
[2019-10-29 13:25] VITALS: BP 127/63; PULSE 65; RESP 16; O2SAT 95; BMI 26.0
--- NOTE | 2019-10-30 08:58 | CA.SCORE ---
Calcium Scoring Date of Study:: 10/29/19 Coronary Calcium Scoring: High-resolution Computed Tomographic imaging of the chest was performed on [10/29/2019], with particular attention paid to the coronary arteries. Images from the examination were analyzed for the presence and extent of coronary artery calcification , using coronary calcium quantification software. The patient tolerated the procedure well and there were no complications. The results of the coronary calcification analysis are provided below. - Findings Left Main (LM): 38.9 Left Anterior Descending (LAD): 237 Left Circumflex (LCX): 42.3 Right Coronary Artery (RCA): 75.1 Total Agatston Score: 393.3 Percentile Rankin to 90% Calcium Scoring Interpretation: 0 No identifiable atherosclerotic plaque. Very low cardiovascular disease risk. <5% chance of presence coronary artery disease A Negative Examination 1-10 Minimal Plaque burden. Significant coronary artery disease very unlikely. 11-100 Mild plaque burden. Likely mild or minimal coronary atherosclerosis. 101-400 Moderate plaque burden Moderate non-obstructive coronary artery disease highly likely. Over 400 Extensive plaque burden. High likelihood of at least one significant coronary stenosis (>50% diameter) Conclusion: The total calcium score (393) is between the 75th and 90th percentile for women between the ages of 70 and 74. (Exact percentile calculated to be 81%; this means 80% of the population has a lower calcium score and 19% of the population is a higher calcium score than this patient.) A full evaluation of cardiac risk including assessment of all conventional risk factors, and the scores and percentile rankings reported herein should be evaluated in this context.
== END | disposition home or self-care (01) ==
LOC: CT 13:05
PROVIDERS: PCP Internal Medicine; Referring Provider Internal Medicine; Visit Provider Internal Medicine
DX: Z13.9 Encounter for screening, unspecified (principal)
CPT/HCPCS: 75571; 76380

== ENCOUNTER → 2019-12-15 | Outpatient (CLI) | payer MEDICARE, SELFPAY ==
[2019-11-17 10:05] VITALS: BMI 25.9
--- NOTE | 2019-12-15 10:45 | MRI_ITS ---
STUDY: MRI BRAIN WITH AND WITHOUT CONTRAST REASON FOR EXAM: Female, 74 years old. History of meningioma and intermittent tight sensation in top of head. TECHNIQUE: Standardized multiplanar fat and water weighted pulse sequences were obtained. 12 mL of IV Dotarem was administered for the contrast portion of the examination. COMPARISON: MRI brain with and without contrast 09/16/2017. FINDINGS: No restricted diffusion to suspect acute or subacute ischemic infarct. 1.1 x 1 cm dural based and mildly enhancing meningioma overlying the junction of the left superior and left middle frontal gyri. This is unchanged. There is very minimal if any mass effect on the underlying brain parenchyma. No associated vasogenic edema of the underlying brain parenchyma. Normal ventricles and cisterns. Few white matter T2 FLAIR hyperintensity foci in both cerebral hemispheres are unchanged. They are most likely secondary to microvascular disease. Normal bilateral basal ganglia. Normal thalami. There is no extra-axial fluid accumulation. Normal flow voids within the major intracranial circulation suggesting patency by spin echo criteria. Normal venous enhancement. There is no enhancing intra-axial or extra-axial abnormality. Normal sella turcica, pituitary gland, infundibular stalk, optic chiasm and hypothalamus. Normal tectal plate and pineal gland. Normal midbrain, tommie and medulla. Normal cerebellum. Normal basal cisterns. Normal bilateral temporal bones. Normal bilateral internal auditory canals. No demonstrated orbital abnormality, within the constraints of a routine brain study. Normal visualized paranasal sinuses. Normal calvarium and skull base. Normal visualized soft tissue structures. Pronounced C3-C4 disc space height narrowing with posterior marginal spurs touching the ventral cord surface but no spinal cord compression. MRI/Brain W/WO Contrast IMPRESSION: 1. 1.1 x 1 cm mildly enhancing meningioma overlying the junction of the left superior and left middle frontal gyri. No associated vasogenic edema of the underlying brain parenchyma and there is very minimal if any mass effects on the underlying brain parenchyma. 2. Few chronic white matter ischemic changes in both cerebral hemispheres. 3. No significant interval change when compared to 09/16/2017. Electronically Signed: Kiel Leija MD at 12:00 EDT , Service support ,
== END | disposition home or self-care (01) ==
PROVIDERS: PCP Internal Medicine; Referring Provider Internal Medicine; Visit Provider Internal Medicine
DX: D32.9 Benign neoplasm of meninges, unspecified (principal)
CPT/HCPCS: 70553; A9575

== ENCOUNTER → 2020-03-03 | Outpatient (CLI) | payer MEDICARE, SELFPAY ==
--- NOTE | 2020-03-03 | LES_PTH ---
PATIENT: JS MEEKS LOC: [facility] U#:[id number] AGE/SX: 74/F ROOM: RE03/03/[address]: Dr. Edgar Tejada MD : 1945 BED: DIS: 03/03/2020 SPEC #: [id number] RECD: 03/03/20 12:27 STATUS: MILAN REBob #: [id number] YESENIA: 03/03/20 00:[address]: Edgar Tejada DEPT: SURGICAL PATHOLOGY RECD BY: Abdullahi Navarro ENTERED: 03/03/20 12:28 SP TYPE: Lesion OTHR DR: Dr. Audrey Austin, DO Tissues: Skin of pubic area Procedures: Surgery Specimen Level IV HEADER OPERATION: Excision left pubic nodule PRE-OP DIAGNOSIS: Left pubic nodule TISSUE SUBMITTED: Pubic tissue MICROSCOPIC DIAGNOSIS Left pubic nodule, excision: Consistent with epidermal inclusion cyst with chronic inflammation and foreign body giant cell reaction. SJ:samantha 03/04/20 MICROSCOPIC DESCRIPTION Slides are reviewed. GROSS DESCRIPTION Received in fixative is one container labeled with the patient's name and designated left pubic tissue. The specimen consists of a piece of cole-white skin ellipse measuring 2 x 1 cm and up to 1 cm in thickness. The specimen is inked, serially sectioned and submitted entirely in one cassette. / CAROLA:samantha 03/03/20 TC:5 CPT: 44658
[2020-03-03 08:23] VITALS: BMI 25.9
== END | disposition home or self-care (01) ==
LOC: LABSPEC 11:19
PROVIDERS: PCP Internal Medicine; Referring Provider Surgery; Visit Provider Surgery
DX: R22.2 Localized swelling, mass and lump, trunk (principal)
CPT/HCPCS: 88305

== ENCOUNTER → 2020-03-04 | Outpatient (CLI) | payer MEDICARE, SELFPAY ==
[2020-03-03 08:23] VITALS: BMI 25.9
[2020-03-04 10:51] LABS: AST(SGOT) 16 U/L (15-37); Alanine Aminotransfer ALT/SGPT 31 U/L (13-56); Albumin, Serum 4.2 g/dL (3.2-5.0); Alkaline Phosphatase 70 U/L (45-117); Bilirubin, Direct 0.17 mg/dL (0.00-0.30); Cholesterol 178 mg/dL (200); Globulin 3.5 g/dL (2.2-4.2); High Density Lipoprotein 52 mg/dL; Protein, Total 7.7 g/dL (6.4-8.2); Triglycerides 125 mg/dL; Very Low Density Lipoprotein 25 mg/dL (5-40)
== END | disposition home or self-care (01) ==
LOC: LAB 09:51
PROVIDERS: PCP Internal Medicine; Referring Provider Internal Medicine Cardiovascular Disease; Visit Provider Internal Medicine Cardiovascular Disease
DX: E78.00 Pure hypercholesterolemia, unspecified (principal)
CPT/HCPCS: 36415; 80061; 80076

== ENCOUNTER → 2020-03-31 | Outpatient (CLI) | payer MEDICARE, SELFPAY ==
[2020-03-03 08:23] VITALS: BMI 25.9
[2020-03-31 08:56] LABS: ALB/GLOB Ratio 1.2 RATIO (0.9-2.4); AST(SGOT) 20 U/L (15-37); Alanine Aminotransfer ALT/SGPT 36 U/L (13-56); Albumin, Serum 4.1 g/dL (3.2-5.0); Alkaline Phosphatase 78 U/L (45-117); Anion Gap 2 (5-15); BUN 13 mg/dL (7-18); BUN/Creat Ratio 18.7 RATIO (10-20); Calcium,Total 9.8 mg/dL (8.5-10.1); Chloride 105 mmol/L (98-107); EST Glomerular Filtration Rate 88 mL/min (>60); Est Glom Filt Rate - Afr Amer 106 mL/min (>60); Globulin 3.5 g/dL (2.2-4.2); Glucose 104 mg/dL (74-106); Magnesium 2.4 mg/dL (1.6-2.6); Potassium 3.9 mmol/L (3.5-5.1); Protein, Total 7.6 g/dL (6.4-8.2); Sodium Level 140 mmol/L (136-145)
== END | disposition home or self-care (01) ==
LOC: LAB 08:07
PROVIDERS: PCP Internal Medicine; Referring Provider Internal Medicine Endocrinology, Diabetes & Metabolism; Visit Provider Internal Medicine Endocrinology, Diabetes & Metabolism
DX: E21.1 Secondary hyperparathyroidism, not elsewhere classified (principal)
CPT/HCPCS: 36415; 80053; 83735

== ENCOUNTER → 2020-04-08 | Outpatient (CLI) | payer MEDICARE, SELFPAY ==
[2020-03-03 08:23] VITALS: BMI 25.9
--- NOTE | 2020-04-08 13:47 | RAD_ITS ---
STUDY: X-RAY - THORACIC SPINE REASON FOR EXAM: Female, 74 years old. PAIN TECHNIQUE: 3 view(s) of the thoracic spine were obtained. COMPARISON: None. FINDINGS: Normal kyphosis of the thoracic spine. There is no substantial scoliosis. There is demineralization of the thoracic spine with endplate spondylosis. There is multilevel disc space narrowing of the thoracic spine. The soft tissue structures are unremarkable. RAD/Thoracic Spine 2 Views IMPRESSION: Degenerative changes. No acute fractures or malalignments seen. Electronically Signed: Dalton Isabel MD at 19:21 EDT , Service support ,
--- NOTE | 2020-04-08 13:47 | RAD_ITS ---
STUDY: X-RAY - LUMBAR SPINE REASON FOR EXAM: Female, 74 years old. PAIN TECHNIQUE: 2 view(s) of the lumbar spine were obtained. COMPARISON: 10/20/2019 FINDINGS: There is a separate dedicated report of the thoracic spine. There is a stable retrolisthesis of L1 on L2. There is a stable grade 2 anterior spondylolisthesis of L5 on S1. There is diffuse demineralization with multi-level endplate spondylosis. There is multi-level degenerative disc disease with multi-level disc space narrowing. There is atherosclerotic calcification of the abdominal aorta without a demonstrated aneurysm. RAD/Lumbar Spine 2 or 3 Views IMPRESSION: Degenerative changes of the spine, as detailed above. Stable grade 2 spondylolisthesis of L5 on S1. Stable retrolisthesis of L1 on L2. Electronically Signed: Aurelia Faust MD at 16:40 EDT Tel , Service support ,
== END | disposition home or self-care (01) ==
LOC: HPRAD 13:45
PROVIDERS: PCP Internal Medicine; Referring Provider Internal Medicine Endocrinology, Diabetes & Metabolism; Visit Provider Internal Medicine Endocrinology, Diabetes & Metabolism
DX: M48.54XA Collapsed vertebra, not elsewhere classified, thoracic region, initial encounter for fracture (principal); M48.56XA Collapsed vertebra, not elsewhere classified, lumbar region, initial encounter for fracture; M54.5 Low back pain; M81.0 Age-related osteoporosis without current pathological fracture
CPT/HCPCS: 72070; 72100

== ENCOUNTER → 2020-04-22 | Outpatient (CLI) | payer MEDICARE, SELFPAY ==
[2020-04-19 07:50] VITALS: BMI 25.9
[2020-04-22 10:42] LABS: Vitamin D,25 Hydroxy 71.3 ng/mL
[2020-04-22 11:19] LABS: ALB/GLOB Ratio 1.1 RATIO (0.9-2.4); AST(SGOT) 21 U/L (15-37); Alanine Aminotransfer ALT/SGPT 35 U/L (13-56); Albumin, Serum 4.1 g/dL (3.2-5.0); Alkaline Phosphatase 70 U/L (45-117); Anion Gap 7 (5-15); BUN 19 mg/dL (7-18); BUN/Creat Ratio 27.2 RATIO (10-20); Calcium,Total 10.4 mg/dL (8.5-10.1); Chloride 101 mmol/L (98-107); EST Glomerular Filtration Rate 87 mL/min (>60); Est Glom Filt Rate - Afr Amer 106 mL/min (>60); Globulin 3.8 g/dL (2.2-4.2); Glucose 101 mg/dL (74-106); Potassium 3.5 mmol/L (3.5-5.1); Protein, Total 7.9 g/dL (6.4-8.2); Sodium Level 140 mmol/L (136-145)
== END | disposition home or self-care (01) ==
LOC: LAB 09:21
PROVIDERS: PCP Internal Medicine; Referring Provider Internal Medicine Endocrinology, Diabetes & Metabolism; Visit Provider Internal Medicine Endocrinology, Diabetes & Metabolism
DX: E55.9 Vitamin D deficiency, unspecified (principal); M81.0 Age-related osteoporosis without current pathological fracture
CPT/HCPCS: 36415; 80053; 82306; 86335

== ENCOUNTER → 2020-05-03 | Outpatient (CLI) | payer MEDICARE, SELFPAY ==
[2020-04-19 07:50] VITALS: BMI 25.9
--- NOTE | 2020-05-04 08:18 | PFT ---
INTRODUCTION: The patient is a 74-year-old female that presents for pulmonary function studies secondary to a diagnosis of shortness of breath. Respiratory therapy reports good patient effort. Bronchodilators were used during testing. INTERPRETATION: Forced expiration spirometry demonstrates the presence of a moderate large airways obstructive ventilatory defect. There was a significant response to aerosolized bronchodilators noted. Spirograms are of good quality and do not plateau indicating slow emptying of the lungs. Body plethysmography was performed and reveals lung volumes to be within normal limits. Diffusing capacity by single breath CO is also within normal limits. When compared to previous pulmonary function studies from May 2019, there has been improvement in the patient's FVC and FEV1. IMPRESSION: Partially reversible moderate large airways obstructive ventilatory defect with preserved lung volumes and diffusing capacity. There has been improvement in the patient's PFTs since May 2019, as noted above.
== END | disposition home or self-care (01) ==
LOC: PSN 08:35
PROVIDERS: PCP Internal Medicine; Referring Provider Nurse Practitioner Acute Care; Visit Provider Nurse Practitioner Acute Care
DX: R06.02 Shortness of breath (principal)
CPT/HCPCS: 94060; 94726; 94729

== ENCOUNTER → 2020-05-10 | Outpatient (CLI) | payer MEDICARE, SELFPAY ==
[2020-04-19 07:50] VITALS: BMI 25.9
[2020-05-10 08:15] VITALS: PULSE 100; PULSE 74; PULSE 79; PULSE 84; PULSE 85; PULSE 92; PULSE 96; O2SAT 94; O2SAT 95; O2SAT 96
--- NOTE | 2020-05-10 10:45 | PCM.PSN.6M ---
PSN 6 Minute Walk Test - 6 Minute Walk Test 6 Minute Walk Test: 6 Minute Walk Test PSN:6-Minute Walk Test Start: 05/10/20 08:40 Freq: Status: Active Protocol: RESP.6MINW Document 05/10/20 08:15 DAVE (Rec: 05/10/20 08:43 [id number]) 6 Minute Walk Test Date Performed 05/10/20 Time Performed 08:15 Height 5 ft 1 in Weight: 62.596 kg Weight in Pounds 138.[address]: Markus Lindsey FIO2 (% Oxygen) 21 Assistive device used: None Pre-test Oxygen Delivery Method Room Air Pulse Ox (%) 95 Pulse Rate (60-100 beats/min) 74 Dyspnea Devin Scale (0-10) 0 Exertion Devin Scale (6-20) 6 1st minute Oxygen Delivery Method Room Air Pulse Ox (%) 96 Pulse Rate (60-100 beats/min) 84 2nd minute Oxygen Delivery Method Room Air Pulse Ox (%) 96 Pulse Rate (60-100 beats/min) 92 3rd minute Oxygen Delivery Method Room Air Pulse Ox (%) 96 Pulse Rate (60-100 beats/min) 96 4th minute Oxygen Delivery Method Room Air Pulse Ox (%) 94 Pulse Rate (60-100 beats/min) 85 5th minute Oxygen Delivery Method Room Air Pulse Ox (%) 94 Pulse Rate (60-100 beats/min) 84 6th minute Oxygen Delivery Method Room Air Pulse Ox (%) 94 Pulse Rate (60-100 beats/min) 100 Post-test Oxygen Delivery Method Room Air Pulse Ox (%) 95 Pulse Rate (60-100 beats/min) 79 Dyspnea Devin Scale (0-10) 2 Exertion Devin Scale (6-20) 11 Full Laps Walked 20 Partial Lap, Number of Tiles Walked 24 Total Distance Walked (ft) 1204 - Interpretation Interpretation: The patient was able to ambulate 1204 feet over the course of 6 minutes on room air with no assistive devices or breaks. The patient experienced no significant desaturation, but did have a peak heart rate of 100 bpm. These findings are consistent with deconditioning. - Recommendations Recommendations: No supplemental oxygen is indicated at this time.
== END | disposition home or self-care (01) ==
LOC: PSN 08:21
PROVIDERS: PCP Internal Medicine; Referring Provider Nurse Practitioner Acute Care; Visit Provider Nurse Practitioner Acute Care
DX: R06.02 Shortness of breath (principal)
CPT/HCPCS: 94618

== ENCOUNTER → 2020-05-16 | Outpatient (CLI) | payer MEDICARE, SELFPAY ==
[2020-04-19 07:50] VITALS: BMI 25.9
[2020-05-16 17:17] LABS: Anion Gap 4 (5-15); BUN 15 mg/dL (7-18); BUN/Creat Ratio 22.4 RATIO (10-20); Chloride 102 mmol/L (98-107); Creatinine, Serum 0.67 mg/dL (0.55-1.02); EST Glomerular Filtration Rate 92 mL/min (>60); Est Glom Filt Rate - Afr Amer 111 mL/min (>60); Glucose 123 mg/dL (74-106); Potassium 3.3 mmol/L (3.5-5.1); Sodium Level 138 mmol/L (136-145)
== END | disposition home or self-care (01) ==
LOC: LAB 16:47
PROVIDERS: PCP Internal Medicine; Referring Provider Internal Medicine Endocrinology, Diabetes & Metabolism; Visit Provider Internal Medicine Endocrinology, Diabetes & Metabolism
DX: E21.1 Secondary hyperparathyroidism, not elsewhere classified (principal)
CPT/HCPCS: 36415; 80048

== ENCOUNTER → 2020-05-20 | Outpatient (CLI) | payer MEDICARE, SELFPAY ==
[2020-04-19 07:50] VITALS: BMI 25.9
[2020-05-20 11:28] LABS: Anion Gap 3 (5-15); BUN 20 mg/dL (7-18); BUN/Creat Ratio 28.2 RATIO (10-20); Calcium,Total 10.2 mg/dL (8.5-10.1); Chloride 103 mmol/L (98-107); Creatinine, Serum 0.71 mg/dL (0.55-1.02); EST Glomerular Filtration Rate 86 mL/min (>60); Est Glom Filt Rate - Afr Amer 104 mL/min (>60); Glucose 102 mg/dL (74-106); Potassium 3.6 mmol/L (3.5-5.1); Sodium Level 139 mmol/L (136-145)
== END | disposition home or self-care (01) ==
PROVIDERS: PCP Internal Medicine
DX: E21.1 Secondary hyperparathyroidism, not elsewhere classified (principal)
CPT/HCPCS: 36415; 80048

== ENCOUNTER → 2020-05-27 | Outpatient (CLI) | payer MEDICARE, SELFPAY ==
[2020-04-19 07:50] VITALS: BMI 25.9
[2020-05-27 11:43] LABS: PTHIN 53.7 pg/mL (18.4-80.1)
[2020-05-27 11:48] LABS: Vitamin D,25 Hydroxy 70.7 ng/mL
[2020-05-27 12:19] LABS: ALB/GLOB Ratio 1.1 RATIO (0.9-2.4); AST(SGOT) 16 U/L (15-37); Alanine Aminotransfer ALT/SGPT 32 U/L (13-56); Albumin, Serum 3.9 g/dL (3.2-5.0); Alkaline Phosphatase 69 U/L (45-117); Anion Gap 3 (5-15); BUN 17 mg/dL (7-18); BUN/Creat Ratio 28.2 RATIO (10-20); Calcium,Total 9.8 mg/dL (8.5-10.1); Chloride 102 mmol/L (98-107); EST Glomerular Filtration Rate 103 mL/min (>60); Est Glom Filt Rate - Afr Amer 125 mL/min (>60); Globulin 3.5 g/dL (2.2-4.2); Glucose 94 mg/dL (74-106); Potassium 3.8 mmol/L (3.5-5.1); Protein, Total 7.4 g/dL (6.4-8.2); Sodium Level 137 mmol/L (136-145); Thyroid Stim Hormone (TSH) 0.89 uIU/mL (0.358-3.74)
== END | disposition home or self-care (01) ==
LOC: LAB 09:27
PROVIDERS: PCP Internal Medicine; Referring Provider Internal Medicine Endocrinology, Diabetes & Metabolism; Visit Provider Internal Medicine Endocrinology, Diabetes & Metabolism
DX: E04.9 Nontoxic goiter, unspecified (principal); E55.9 Vitamin D deficiency, unspecified; E21.1 Secondary hyperparathyroidism, not elsewhere classified
CPT/HCPCS: 36415; 80053; 82306; 83970; 84443

== ENCOUNTER → 2020-07-28 07:08 | Outpatient (CLI) | payer MEDICARE, SELFPAY ==
[2020-07-19 10:32] VITALS: BMI 26.2
[2020-07-28 08:31] LABS: PTHIN 66.6 pg/mL (18.4-80.1)
[2020-07-28 08:36] LABS: Vitamin D,25 Hydroxy 63.1 ng/mL
[2020-07-28 08:42] LABS: ALB/GLOB Ratio 1.2 RATIO (0.9-2.4); AST(SGOT) 15 U/L (15-37); Alanine Aminotransfer ALT/SGPT 30 U/L (13-56); Albumin, Serum 3.8 g/dL (3.2-5.0); Alkaline Phosphatase 71 U/L (45-117); Anion Gap 4 (5-15); BUN 14 mg/dL (7-18); BUN/Creat Ratio 21.8 RATIO (10-20); Calcium,Total 9.5 mg/dL (8.5-10.1); Chloride 104 mmol/L (98-107); Creatinine, Serum 0.64 mg/dL (0.55-1.02); EST Glomerular Filtration Rate 96 mL/min (>60); Est Glom Filt Rate - Afr Amer 116 mL/min (>60); Globulin 3.2 g/dL (2.2-4.2); Glucose 94 mg/dL (74-106); Potassium 3.5 mmol/L (3.5-5.1); Sodium Level 141 mmol/L (136-145); Thyroid Stim Hormone (TSH) 0.98 uIU/mL (0.358-3.74)
== END ==
PROVIDERS: PCP Internal Medicine; Referring Provider Internal Medicine Endocrinology, Diabetes & Metabolism; Visit Provider Internal Medicine Endocrinology, Diabetes & Metabolism
DX: E21.1 Secondary hyperparathyroidism, not elsewhere classified (principal); E55.9 Vitamin D deficiency, unspecified; E04.9 Nontoxic goiter, unspecified
CPT/HCPCS: 36415; 80053; 82306; 83970; 84443

== ENCOUNTER → 2020-08-04 08:27 | Outpatient (CLI) | payer MEDICARE, SELFPAY ==
[2020-07-19 10:32] VITALS: BMI 26.2
[2020-08-04 09:04] LABS: Color, Urine Yellow (Yellow); Glucose, Dipstick Normal (Normal); Ketone-Dipstick Negative (Negative); Leukocyte Esterase-Dipstick 25 /ul (Negative); Nitrite-Dipstick Negative (Negative); Occult Blood-Urine 10 /ul (Negative); Protein-Dipstick 15 mg/dl (Negative); Specific Gravity, Urine 1.015 (1.002-1.030); Urine Bilirubin Dipstick Negative (Negative); Urine Clarity Clear (Clear); Urine Urobilinogen Normal (Normal); Urine pH 6.5 (5.0 - 8.0)
== END ==
PROVIDERS: PCP Internal Medicine; Referring Provider Internal Medicine; Visit Provider Internal Medicine
DX: R30.0 Dysuria (principal)
CPT/HCPCS: 81002; 87086; 87088

== ENCOUNTER → 2020-08-15 07:04 | Outpatient (CLI) | payer MEDICARE, SELFPAY ==
[2020-07-19 10:32] VITALS: BMI 26.2
[2020-08-15 07:23] LABS: Absolute Lymphocyte Count 1.35 X10^3/uL (0.83-4.51); Absolute Neutrophil Count 3.1 X10^3/uL (2.0-7.7); Basophil# 0.03 X10^3/uL; Basophil% 0.6 % (0-1); Eosinophil# 0.24 X10^3/uL; Eosinophils% 4.5 % (0-5); Hematocrit 42.9 % (37-47); Hemoglobin 14.3 g/dL (12.0-15.0); Lymphocyte # 1.35 X10^3/ul (4.0); Lymphocyte % 25.4 % (19-41); Mean Corp Hgb Conc 33.3 g/dL (32-36); Mean Corpuscular Hgb 30.6 pg (27.0-32.0); Mean Corpuscular Volume 91.7 fL (81-99); Mean Platelet Vol. 9.4 fl (6.2-12.0); Monocyte# 0.59 X10^3/uL; Monocyte% 11.1 % (0-10); NRBC Flagged by Analyzer 0 % (0-5); Neutrophil % 58.2 % (47-70); Platelet Count 281 K/mm3 (150-450); RBC Distribution Width CV 12.6 % (11.6-14.6); RBC Distribution Width SD 42.7 fl (35.1-43.9); Red Blood Count 4.68 M/mm3 (4.2-5.4); White Blood Count 5.3 K/mm3 (4.4-11.0)
[2020-08-15 07:45] LABS: Hemoglobin A1c 5.4 % (3.8-5.6)
[2020-08-15 07:50] LABS: ALB/GLOB Ratio 1.1 RATIO (0.9-2.4); AST(SGOT) 19 U/L (15-37); Alanine Aminotransfer ALT/SGPT 40 U/L (13-56); Albumin, Serum 4.1 g/dL (3.2-5.0); Alkaline Phosphatase 77 U/L (45-117); Anion Gap 5 (5-15); BUN 15 mg/dL (7-18); BUN/Creat Ratio 21.2 RATIO (10-20); Calcium,Total 9.9 mg/dL (8.5-10.1); Chloride 103 mmol/L (98-107); Cholesterol 194 mg/dL (200); Creatinine, Serum 0.71 mg/dL (0.55-1.02); EST Glomerular Filtration Rate 86 mL/min (>60); Est Glom Filt Rate - Afr Amer 104 mL/min (>60); Globulin 3.6 g/dL (2.2-4.2); Glucose 103 mg/dL (74-106); High Density Lipoprotein 60 mg/dL; Potassium 3.6 mmol/L (3.5-5.1); Protein, Total 7.7 g/dL (6.4-8.2); Sodium Level 139 mmol/L (136-145); Triglycerides 98 mg/dL; Very Low Density Lipoprotein 20 mg/dL (5-40)
== END ==
PROVIDERS: PCP Internal Medicine; Referring Provider Internal Medicine; Visit Provider Internal Medicine
DX: E78.49 Other hyperlipidemia (principal); E83.52 Hypercalcemia; R73.09 Other abnormal glucose
CPT/HCPCS: 36415; 80053; 80061; 83036; 85025

== ENCOUNTER → 2020-10-26 07:06 | Outpatient (CLI) | payer MEDICARE, SELFPAY ==
[2020-07-19 10:32] VITALS: BMI 26.2
[2020-10-26 07:55] LABS: PTHIN 59.2 pg/mL (18.4-80.1)
[2020-10-26 08:14] LABS: ALB/GLOB Ratio 1.1 RATIO (0.9-2.4); AST(SGOT) 15 U/L (15-37); Alanine Aminotransfer ALT/SGPT 33 U/L (13-56); Albumin, Serum 3.8 g/dL (3.2-5.0); Alkaline Phosphatase 75 U/L (45-117); Anion Gap 3 (5-15); BUN 20 mg/dL (7-18); Bilirubin, Direct 0.21 mg/dL (0.00-0.30); Calcium,Total 9.8 mg/dL (8.5-10.1); Chloride 102 mmol/L (98-107); Cholesterol 206 mg/dL (200); Creatinine, Serum 0.77 mg/dL (0.55-1.02); EST Glomerular Filtration Rate 78 mL/min (>60); Est Glom Filt Rate - Afr Amer 94 mL/min (>60); Globulin 3.6 g/dL (2.2-4.2); Glucose 115 mg/dL (74-106); High Density Lipoprotein 55 mg/dL; Potassium 3.7 mmol/L (3.5-5.1); Protein, Total 7.4 g/dL (6.4-8.2); Sodium Level 139 mmol/L (136-145); Thyroid Stim Hormone (TSH) 0.69 uIU/mL (0.358-3.74); Triglycerides 141 mg/dL; Very Low Density Lipoprotein 28 mg/dL (5-40)
[2020-10-26 11:14] LABS: Absolute Lymphocyte Count 1.54 X10^3/uL (0.83-4.51); Basophil# 0.03 X10^3/uL; Basophil% 0.6 % (0-1); Eosinophil# 0.21 X10^3/uL; Eosinophils% 3.9 % (0-5); Hematocrit 44.7 % (37-47); Hemoglobin 14.7 g/dL (12.0-15.0); Lymphocyte # 1.54 X10^3/ul (4.0); Lymphocyte % 28.9 % (19-41); Mean Corp Hgb Conc 32.9 g/dL (32-36); Mean Corpuscular Hgb 31.2 pg (27.0-32.0); Mean Corpuscular Volume 94.9 fL (81-99); Mean Platelet Vol. 10.2 fl (6.2-12.0); Monocyte# 0.57 X10^3/uL; Monocyte% 10.7 % (0-10); NRBC Flagged by Analyzer 0 % (0-5); Neutrophil # 2.97 X10^3/uL (2.7-7.7); Neutrophil % 55.7 % (47-70); Platelet Count 302 K/mm3 (150-450); RBC Distribution Width SD 45.7 fl (35.1-43.9); Red Blood Count 4.71 M/mm3 (4.2-5.4); White Blood Count 5.3 K/mm3 (4.4-11.0)
== END ==
PROVIDERS: Internal Medicine Cardiovascular Disease; PCP Internal Medicine; Referring Provider Internal Medicine Endocrinology, Diabetes & Metabolism; Visit Provider Internal Medicine Endocrinology, Diabetes & Metabolism
DX: E21.1 Secondary hyperparathyroidism, not elsewhere classified (principal); E04.9 Nontoxic goiter, unspecified; E55.9 Vitamin D deficiency, unspecified; E78.00 Pure hypercholesterolemia, unspecified; E78.5 Hyperlipidemia, unspecified; R00.2 Palpitations
CPT/HCPCS: 36415; 80053; 80061; 82248; 82306; 83970; 84443; 85025

== ENCOUNTER → 2020-10-27 08:39 | Outpatient (CLI) | payer MEDICARE, SELFPAY ==
[2020-07-19 10:32] VITALS: BMI 26.2
--- NOTE | 2020-10-27 08:41 | BI_ITS ---
MAMMOGRAPHY - BILATERAL SCREENING REASON FOR EXAM: Female, 75 years old. Routine annual screening examination. PERTINENT HISTORY: Daughter with breast cancer. History of prior bilateral excisional breast biopsies. TECHNIQUE: Digital bilateral breast junaid (3D mammographic acquisition) in the CC and MLO projections. 2-D mediolateral oblique (MLO) and craniocaudad (CC) views of both breasts were obtained. CAD: Full Field Digital Mammography with Computer Added Detection was performed. COMPARISON: Comparison is made with prior study 10/23/2019 and 10/16/2018. FINDINGS: Breast Composition: The breasts are heterogeneously dense, which may obscure small masses. There are no dominant masses or suspicious calcifications. Stable 6.3 mm x 6.8 mm mm well-defined nodule in the upper lateral aspect of the left breast. Stable appearance of the bilateral axillary lymph nodes. No other significant abnormalities are identified. There has been no significant change since the prior study. BI/SCRN MAMM (CAD)W/JUNAID BILAT IMPRESSION: Stable bilateral screening mammogram. Yearly follow-up mammogram recommended. (A) ASSESSMENT CATEGORY: BIRADS Category 2: Benign. A letter regarding these results will be sent to the patient by the facility within 30 days. Approximately 10% of breast cancers are not detected by mammography. A normal mammogram should not delay biopsy of a clinically suspicious abnormality. [id number] Electronically Signed: Corey Rodriguez MD at 9:57 EDT , Service support ,
== END ==
PROVIDERS: PCP Internal Medicine; Referring Provider Internal Medicine; Visit Provider Internal Medicine
DX: Z12.31 Encounter for screening mammogram for malignant neoplasm of breast (principal)
CPT/HCPCS: 77063; 77067

== ENCOUNTER → 2020-12-13 09:17 | Outpatient (CLI) | payer MEDICARE, SELFPAY ==
[2020-11-17 09:22] VITALS: BMI 27.1
--- NOTE | 2020-12-13 09:20 | STEWCON_ITS ---
Reason For Study: Dyspnea Stress Results Protocol: Markus Protocol WITH DEFINITY Maximum Predicted HR: 146 bpm Target HR: 124 bpm % Maximum Predicted HR: 86 % DurationHeart Rate Stage (mm:ss) (bpm) BP Comment Baseline 64 122/70No Chest Pain; 3 ML Diluted Definity Markus Protocol Stage I 3:00 88 130/68No Chest Pain Markus Protocol Stage II 3:00 97 132/74No Chest Pain; Mild Dyspnea Markus Protocol Stage III 3:00 125 138/76No Chest Pain; Mild Dyspnea Recovery 74 118/68No Chest Pain; No Dyspnea Stress Duration: 9:00 mm:ss Maximum Stress HR: 125 bpm METS: 10 Baseline Echocardiogram Findings Stress Echo Wall motion Data Resting WM Intermediate WM Stress WM ECHO/Stress Test Echo W/Contrast Interpretation Summary Exercise stress echo. 75-year-old lady with a history of palpitations. Stress protocol: Resting EKG demonstrates sinus rhythm with a rate of 59 bpm occasional prematur e ventricular complex is noted. Resting blood pressure is 122/70 mmHg. The patient exercised accordin g to regular Markus protocol for total duration of 9 minutes. The maximum heart rate attained was 1 27 bpm which was 86% of maximum predicted heart rate the maximum workload was 10.1 metabolic equival ents. At rest there were no ST or T wave changes noted to suggest ischemia. Occasional premature at rial and ventricular complexes were noted. At peak exercise upsloping ST changes were noted with did not meet the criteria for ischemia. No clinical angina was noted the test was terminated due to generalized fatigue. The peak blood pressure was 138/76 mmHg which was an excellent blood p ressure response to exercise. Stress echocardiographic images. Stress and resting echocardiogram was performed with Definity enhancement. At r est the ejection fraction was estimated to be 55% with no wall motion abnormalities noted. At pe ak exercise there was contraction of the left ventricle with improvement in ejection fraction to 65%. No wall motion abnormalities were noted. Conclusion: Exercise stress echocardiogram with no EKG or echocardiographic criteria for is chemia at a high workload. Excellent functional capacity. No angina at present. Ordering Physician: Mark Leger Referring Physician: Audrey Austin Performed By: Myriam Martin, DEV, RVT
== END ==
PROVIDERS: PCP Internal Medicine; Visit Provider Internal Medicine Cardiovascular Disease
DX: R06.00 Dyspnea, unspecified (principal); R06.02 Shortness of breath
CPT/HCPCS: 93017; 93350; Q9957; A4216; C8928

== ENCOUNTER → 2021-01-19 11:08 | Outpatient (CLI) | payer MEDICARE, SELFPAY ==
[2021-01-03 08:27] VITALS: BMI 26.2
[2021-01-13 08:17] VITALS: BMI 26.2
--- NOTE | 2021-01-19 11:11 | US_ITS ---
STUDY: RENAL ULTRASOUND - COMPLETE REASON FOR EXAM: Female, 75 years old. UTI,HX OF STONES TECHNIQUE: Ultrasound evaluation of the kidneys was performed with real-time and static fagan-scale imaging. COMPARISON: None. FINDINGS: RIGHT KIDNEY: Normal location of the right kidney, which is normal in size. The right kidney measures 12 cm x 6.4 cm x 4.4 cm. There is diffuse thinning of the renal cortex. The renal cortex measures 8.8 cm. There is no right renal mass or cyst. There are no right renal calculi. There is no right hydronephrosis. DISTAL RIGHT URETER: There is non-visualization of the distal right ureter. There is no demonstrated right ureterovesical junction calculus. There is a visualized right ureteral jet. LEFT KIDNEY: Normal location of the left kidney, which is normal in size. The left kidney measures 13.5 cm x 5.2cm x 5.8 cm. There is a normal cortex of the left kidney. The renal cortex measures 1.3 cm. There is a 6 mm x 6 mm x 3 mm cyst. There are no left renal calculi. There is no left hydronephrosis. DISTAL LEFT URETER: There is non-visualization of the distal left ureter. There is no demonstrated left ureterovesical junction calculus. There is no demonstrated left ureteral jet. BLADDER: The distended urinary bladder has a volume of 415 ml. There is a normal wall thickness of the distended urinary bladder. There is no demonstrated mass within the urinary bladder. There are no demonstrated bladder calculi. US/Kidney and Bladder IMPRESSION: Mild cortical thinning of the right kidney. Small left renal cyst. Electronically Signed: Corey Rodriguez MD at 15:33 EDT , Service support ,
== END ==
PROVIDERS: PCP Internal Medicine; Referring Provider Urology; Visit Provider Urology
DX: N39.0 Urinary tract infection, site not specified (principal); Z87.442 Personal history of urinary calculi
CPT/HCPCS: 76770

== ENCOUNTER → 2021-03-07 08:33 | Outpatient (CLI) | payer MEDICARE, SELFPAY ==
[2021-01-13 08:17] VITALS: BMI 26.2
[2021-03-07 09:30] LABS: Absolute Lymphocyte Count 1.29 X10^3/uL (0.83-4.51); Absolute Neutrophil Count 2.9 X10^3/uL (2.0-7.7); Basophil# 0.03 X10^3/uL; Basophil% 0.6 % (0-1); Hemoglobin 14.1 g/dL (12.0-15.0); Lymphocyte # 1.29 X10^3/ul (0.83-4.51); Lymphocyte % 25.9 % (19-41); Mean Corp Hgb Conc 34.4 g/dL (32-36); Mean Corpuscular Hgb 31.2 pg (27.0-32.0); Mean Corpuscular Volume 90.7 fL (81-99); Monocyte# 0.48 X10^3/uL; Monocyte% 9.6 % (0-10); NRBC Flagged by Analyzer 0 % (0-5); Neutrophil # 2.87 X10^3/uL (2.7-7.7); Neutrophil % 57.5 % (47-70); Platelet Count 251 K/mm3 (150-450); RBC Distribution Width SD 43.4 fl (35.1-43.9); Red Blood Count 4.52 M/mm3 (4.2-5.4)
[2021-03-07 09:44] LABS: Hemoglobin A1c 5.5 % (3.8-5.6)
[2021-03-07 09:47] LABS: PTHIN 72.4 pg/mL (18.4-80.1)
[2021-03-07 09:51] LABS: Vitamin B12 499 pg/mL (211-911); Vitamin D,25 Hydroxy 67.6 ng/mL
[2021-03-07 10:04] LABS: ALB/GLOB Ratio 1.2 RATIO (0.9-2.4); AST(SGOT) 25 U/L (15-37); Alanine Aminotransfer ALT/SGPT 39 U/L (13-56); Albumin, Serum 3.8 g/dL (3.2-5.0); Alkaline Phosphatase 59 U/L (45-117); Anion Gap 4 (5-15); BUN 21 mg/dL (7-18); Calcium,Total 9.6 mg/dL (8.5-10.1); Chloride 104 mmol/L (98-107); Cholesterol 168 mg/dL (200); Creatinine, Serum 0.57 mg/dL (0.55-1.02); EST Glomerular Filtration Rate 111 mL/min (>60); Est Glom Filt Rate - Afr Amer 134 mL/min (>60); Globulin 3.3 g/dL (2.2-4.2); Glucose 104 mg/dL (74-106); High Density Lipoprotein 47 mg/dL; Magnesium 2.1 mg/dL (1.6-2.6); Potassium 3.3 mmol/L (3.5-5.1); Protein, Total 7.1 g/dL (6.4-8.2); Sodium Level 139 mmol/L (136-145); Triglycerides 104 mg/dL; Very Low Density Lipoprotein 21 mg/dL (5-40)
== END ==
PROVIDERS: PCP Internal Medicine; Visit Provider Internal Medicine Endocrinology, Diabetes & Metabolism
DX: M81.0 Age-related osteoporosis without current pathological fracture (principal); E21.1 Secondary hyperparathyroidism, not elsewhere classified; E55.9 Vitamin D deficiency, unspecified; R73.09 Other abnormal glucose; E78.49 Other hyperlipidemia; D51.8 Other vitamin B12 deficiency anemias; E87.6 Hypokalemia
CPT/HCPCS: 36415; 80053; 80061; 82306; 82607; 83036; 83735; 83970; 85025

== ENCOUNTER → 2021-04-10 07:08 | Outpatient (CLI) | payer MEDICARE, SELFPAY ==
[2021-04-10 07:52] LABS: Anion Gap 4 (5-15); BUN 17 mg/dL (7-18); BUN/Creat Ratio 28.8 RATIO (10-20); Calcium,Total 9.9 mg/dL (8.5-10.1); Chloride 103 mmol/L (98-107); Creatinine, Serum 0.59 mg/dL (0.55-1.02); EST Glomerular Filtration Rate 106 mL/min (>60); Est Glom Filt Rate - Afr Amer 128 mL/min (>60); Glucose 116 mg/dL (74-106); Potassium 3.8 mmol/L (3.5-5.1); Sodium Level 138 mmol/L (136-145)
== END ==
PROVIDERS: PCP Internal Medicine; Referring Provider Physician Assistant; Visit Provider Physician Assistant
DX: M81.0 Age-related osteoporosis without current pathological fracture (principal)
CPT/HCPCS: 36415; 80048

== ENCOUNTER 2021-05-10 15:13 | Outpatient (CLI) | payer MEDICARE, SELFPAY ==
[2021-05-10 15:25] VITALS: BP 120/63; PULSE 73; RESP 16; TEMP 37.1; O2SAT 93; BMI 26.0
[2021-05-10] MEDS: 0.9% Saline Lock 10 ML Syringe IV (15:30)
[2021-05-10 16:15] VITALS: BP 104/65; PULSE 94; RESP 16; TEMP 37; O2SAT 94
[2021-05-10 17:07] VITALS: BP 108/58; PULSE 72; RESP 16; TEMP 37; O2SAT 94
== END 2021-05-10 17:14 | disposition home or self-care (01) ==
LOC: MS3OUT 15:13 → MS3 15:14
PROVIDERS: PCP Internal Medicine; Referring Provider Nurse Practitioner Adult Health; Visit Provider Nurse Practitioner Adult Health
DX: Z23 Encounter for immunization (principal); U07.1 COVID-19
CPT/HCPCS: J7050; M0243; A4216; Q0244

== ENCOUNTER → 2021-06-07 07:07 | Outpatient (CLI) | payer MEDICARE, SELFPAY ==
[2021-06-07 09:27] LABS: Hemoglobin A1c 5.7 % (3.8-5.6)
[2021-06-07 09:28] LABS: AST(SGOT) 16 U/L (15-37); Alanine Aminotransfer ALT/SGPT 33 U/L (13-56); Albumin, Serum 3.5 g/dL (3.2-5.0); Alkaline Phosphatase 59 U/L (45-117); Anion Gap 6 (5-15); BUN 26 mg/dL (7-18); BUN/Creat Ratio 32.1 RATIO (10-20); Calcium,Total 9.8 mg/dL (8.5-10.1); Chloride 104 mmol/L (98-107); Cholesterol 190 mg/dL (200); Creatinine, Serum 0.81 mg/dL (0.55-1.02); EST Glomerular Filtration Rate 73 mL/min (>60); Est Glom Filt Rate - Afr Amer 89 mL/min (>60); Globulin 3.6 g/dL (2.2-4.2); Glucose 107 mg/dL (74-106); High Density Lipoprotein 50 mg/dL; Potassium 3.9 mmol/L (3.5-5.1); Protein, Total 7.1 g/dL (6.4-8.2); Sodium Level 140 mmol/L (136-145); Triglycerides 131 mg/dL; Very Low Density Lipoprotein 26 mg/dL (5-40)
[2021-06-07 14:28] LABS: Microalbumin,Random Urine 24.3 mg/L (NO RANGE EST.); Microalbumin:Creatinine Ratio 13.8 mg/g CRE (<30 mg/g CRE)
== END ==
PROVIDERS: PCP Internal Medicine; Referring Provider Internal Medicine; Visit Provider Internal Medicine
DX: E78.49 Other hyperlipidemia (principal); R73.09 Other abnormal glucose
CPT/HCPCS: 36415; 80053; 80061; 82043; 82570; 83036

== ENCOUNTER → 2021-06-12 16:52 | Outpatient (CLI) | payer MEDICARE, SELFPAY ==
--- NOTE | 2021-06-12 16:59 | MRI_ITS ---
STUDY: MRI BRAIN WITH AND WITHOUT CONTRAST REASON FOR EXAM: Female, 75 years old. GAIT DISTURBANCE post covid TECHNIQUE: Standardized multiplanar fat and water weighted pulse sequences were obtained. IV dotarem 12ml was administered for the contrast portion of the examination. COMPARISON: ] MRI of the brain 12/15/2019 FINDINGS: Mild atrophy and periventricular white matter ischemic changes without mass effect or restricted diffusion.. Normal bilateral basal ganglia. Normal thalami. There is no extra-axial fluid accumulation. Normal flow voids within the major intracranial circulation suggesting patency by spin echo criteria. Normal venous enhancement. There is no enhancing intra-axial or extra-axial abnormality. Normal sella turcica, pituitary gland, infundibular stalk, optic chiasm and hypothalamus. Normal tectal plate and pineal gland. Normal midbrain, tommie and medulla. Normal cerebellum. Normal basal cisterns. Normal bilateral temporal bones. Normal bilateral internal auditory canals. There is a small dural based enhancing nodule in left frontal lobe measuring approximately 1.05 x 0.65 cm likely representing meningioma No demonstrated orbital abnormality, within the constraints of a routine brain study. Minor mucosal thickening of the ethmoid air cells. Normal calvarium and skull base. Normal visualized soft tissue structures. Normal visualized upper cervical spine. No significant change since prior exam MRI/Brain W/WO Contrast IMPRESSION: Mild atrophy and periventricular white matter ischemic changes without evidence for acute infarct.. Small left frontal lobe meningioma likely of no significance Electronically Signed: Doug Pedraza MD at 19:57 EDT , Service support ,
== END ==
PROVIDERS: PCP Internal Medicine; Visit Provider Internal Medicine
DX: R26.9 Unspecified abnormalities of gait and mobility (principal)
CPT/HCPCS: 70553; A9575

== ENCOUNTER 2021-08-22 16:51 | Emergency (ER) | payer MEDICARE, SELFPAY ==
[2021-08-22 16:53] VITALS: BP 150/74; PULSE 69; RESP 16; TEMP 35.9; O2SAT 95; BMI 27.3
--- NOTE | 2021-08-22 17:10 | CT_ITS ---
INDICATION: flank pain EXAMINATION: CT Abdomen And Pelvis W/O Contrast Injection TECHNIQUE: Helically acquired images were obtained of the abdomen and pelvis without the use of IV contrast. A radiation dose optimization technique was used for this scan. Oral contrast: None COMPARISON: 12/04/2013 FINDINGS: Evaluation of the solid organs and vascular structures is limited without intravenous contrast. Visualized lung bases: Bibasilar atelectasis. Liver: Unremarkable Gallbladder: Unremarkable Spleen: Unremarkable Pancreas: Unremarkable Adrenal Glands: Unremarkable Kidneys: Obstructing 5 mm stone in the left mid ureter with associated moderate left hydroureteronephrosis. There are other scattered nonobstructing stones bilaterally, largest on the right measuring 3 mm and in the upper pole while largest on the left measures 3 mm also in the upper pole. Vasculature: Mild scattered aortoiliac atherosclerotic calcifications. GI Tract: Scattered diverticula throughout the colon without evidence of inflammation. Lymphadenopathy: None Peritoneum: No ascites. Bladder: Unremarkable Reproductive organs: Status post hysterectomy. Bones/Soft tissues: There are diffuse degenerative changes of the spine. Moderately sized left spigelian fat-containing hernia with an opening defect of 1.[address]/Abdomen/Pelvis without Cont IMPRESSION: Obstructing 5 mm stone in the left mid ureter with associated moderate left hydroureteronephrosis. There are other scattered nonobstructing stones bilaterally. Moderately sized left spigelian fat-containing hernia with an opening defect of 1.2 cm. Diverticulosis. Electronically Signed: Dave Simental MD at 18:16 EST Tel , Service support ,
--- NOTE | 2021-08-22 17:12 | EX.ED.DYSGE1 ---
HPI History of Present Illness Chief Complaint: Flank Pain Detail of Chief Complaint: Left lower abdomen pain and flank pain Informant: patient Narrative Narrative: With pain in her left lower abdomen and flank that started about 2 hours ago. Pain is severe. Patient states she has had history of kidney stones but its been several years since her last one. Patient denies any fever. She denies nausea or vomiting. She denies diarrhea. She denies blood in her stool or black tarry stool. She denies urinary symptoms. Patient has not been vaccinated against COVID but did have COVID infection in May 2021. Prior similar symptoms: Yes [facility], [facility] Medical History (Updated 08/22/21 @ 19:[address] Glen Tang, DO) Asthma Bronchospasm Chronic cough Dysphagia Folliculitis History of kidney stones Hyperlipidemia Kyphoscoliosis and scoliosis Meningioma Osteoporosis Palpitations Restrictive airway disease Spinal fracture Home Medications magnesium 250 mg tablet 500 mg PO QDAY tab 11/19/17 [History Last Taken Unknown] indapamide 1.25 mg tablet 2.5 mg PO QAM tab 11/25/18 [History Last Taken Unknown] potassium citrate 10 mEq (1,080 mg) tablet,extended release 10 meq PO DAILY tab 11/25/18 [History Last Taken Unknown] omega-3 fatty acids 1,000 mg capsule 1,000 mg PO DAILY 08/11/19 [History Last Taken Unknown] omeprazole 40 mg capsule,delayed release 40 mg PO DAILY 08/11/19 [History Last Taken Unknown] turmeric root extract 500 mg capsule 1,000 mg PO DAILY cap 08/11/19 [History Last Taken Unknown] ascorbate calcium (vitamin C) 500 mg capsule 2 g PO DAILY cap 11/17/19 [History Last Taken Unknown] cholecalciferol (vitamin D3) 100 mcg (4,000 unit) capsule 4,000 unit PO DAILY 11/17/19 [History Last Taken Unknown] cyanocobalamin (vitamin B-12) 500 mcg tablet 500 mcg PO QDAY tab 11/17/19 [History Last Taken Unknown] folic acid 400 mcg tablet 0.4 mg PO DAILY 11/17/19 [History Last Taken Unknown] coenzyme Q10 75 mg capsule 75 mg PO DAILY 04/19/20 [History Last Taken Unknown] elderberry fruit 200 mg capsule mg PO 04/19/20 [History Last Taken Unknown] atorvastatin 10 mg tablet 10 mg PO DAILY #90 tablet 11/17/20 [Rx Last Taken Unknown] nebivolol 5 mg tablet 5 mg PO DAILY tablet 11/17/20 [History Last Taken Unknown] potassium chloride 10 mEq capsule,extended release 10 meq PO DAILY cap 11/17/20 [History Last Taken Unknown] albuterol sulfate 90 mcg/actuation breath activated powder inhaler 2 inh INHALATION Q6H PRN 01/13/21 [History Last Taken Unknown] budesonide-formoterol HFA 160 mcg-4.5 mcg/actuation aerosol inhaler 2 puff INHALATION BID #3 ea 01/13/21 [Rx Last Taken Unknown] hydrocodone-acetaminophen 1 tab PO Q4H PRN PRN 2 Days #15 tablet 08/22/21 [Rx Last Taken Unknown] naproxen 500 mg PO BID #14 tab 08/22/21 [Rx Last Taken Unknown] ondansetron 4 mg PO Q8H PRN PRN #10 tab 08/22/21 [Rx Last Taken Unknown] Allergy/AdvReac Type Severity Reaction Status Date / Time metoprolol AdvReac bronchospas Verified 08/22/21 16:55 m/cough/dys pnea minocycline HCl AdvReac Other Verified 08/22/21 16:55 [From Minocin] depth perception Skin Cleanser Combination AdvReac Other Verified 08/22/21 16:55 No.4 [From Minocin] Sulfa (Sulfonamide AdvReac Other Verified 08/22/21 16:55 Antibiotics) Family History Father , Age 81 Prostate cancer Mother Ulcerative colitis Grandmother Cancer Sister Glaucoma Sister Osteoporosis Brother Intracranial bleed Daughter Cancer breast Surgical History History of appendectomy History of breast biopsy History of lithotripsy History of total abdominal hysterectomy Social History Smoking Status: Never smoker alcohol intake: never substance use type: does not use caffeine: No ROS ROS ED Constitutional Constitutional ED: Reports systems reviewed and no addt'l complaints, except as documented; Denies body ache(s), change in weight or chills Eyes Eyes: Denies acute decrease in peripheral vision, change in vision, double vision or loss of vision ENT ENT ED: Reports none; Denies ear pain, lip swelling, loss taste/smell, neck pain, otalgia or sore throat Cardiovascular Cardiovascular: Reports none; Denies abdominal pain, chest pain with activity, leg edema, lightheadedness, palpitations, rapid heart rate or syncope Respiratory/Chest Respiratory/Chest: Reports none; Denies change in mental status, dry cough, dyspnea, hemoptysis, shortness of breath at rest or shortness of breath with exertion Gastrointestinal Gastrointestinal: Reports none, abdominal pain and nausea; Denies change in stool character, diarrhea, hematemesis, hematochezia, melena, rectal bleeding or vomiting Genitourinary Genitourinary ED: Reports none; Denies abdominal discomfort, anuria, dysuria, genital pain or polyuria Musculoskeletal Musculoskeletal: Reports none; Denies arthralgias, back pain, difficulty walking, extremity pain, muscle weakness or myalgias Integumentary Reports none; Denies abscess or rash Neurologic Neurologic: Reports none; Denies abnormal gait, confusion, focal weakness, frequent falls, headache(s), loss of vision, numbness, paresthesias, radicular pain, vertigo or weakness Psychiatric Psychiatric: Reports systems reviewed and no addt'l complaints, except as documented and none; Denies behavioral changes, confusion, difficulty concentrating, hallucinations, suicidal ideation, tactile hallucinations or visual hallucinations Endocrine Endocrinology: Denies none, cold intolerance, excessive sweating, fatigue or heat intolerance Hematologic/Lymphatic Hematologic/Lymphatic: Reports none; Denies anemia, easy bleeding or easy bruising Allergic/Immunologic Allergic/Immunologic ED: Denies as per HPI, none, lip swelling, mouth swelling, throat swelling, tongue swelling or hives EXAM Physical Exam Const Vital Signs: 08/22/21 16:53 Temperature 96.7 F L Temperature Source Temporal Pulse Rate 69 Respiratory Rate 16 Blood Pressure 150/74 H Blood Pressure Mean 99 Pulse Ox 95 Oxygen Delivery Method Room Air Positive well nourished and well developed General Appearance ED: well developed and NAD HEENT Reports TM's clear and moist mucous membranes normocephalic and atraumatic; Negative for trauma or tenderness Tympanic Membrane ED: Yes TM's clear Eyes PERRL and EOMs intact bilaterally General Eye ED: Negative for pale conjunctiva or scleral icterus Neck no lymphadenopathy, supple and no JVD General: Negative for tenderness Chest Wall inspection of chest normal and palpation of chest normal Chest: Negative for tenderness Resp normal respiratory effort and clear to auscultation bilaterally Effort and Inspection: Negative for respiratory distress or pain with movement Auscultation: Negative for rhonchi, wheezes or diminished lung sounds Cardio regular rate, regular rhythm, S1 normal heart sound, S2 normal heart sound and no murmurs Peripheral Pulses: pulses 2+ throughout GI soft to palpation, non-distended and no masses GI Narrative: Tenderness to the right lower quadrant with some guarding. She is got CVA tenderness on the left. There is no rebound, rigidity, or peritoneal signs Back/Spine no CVA tenderness and no thoracic nor lumbar tenderness Extremity normal to inspection General Extremety ED: Negative for edema General Extremity: Negative for edema Neuro oriented x3, CN's II-XII intact bilaterally, no sensory deficits noted and gait normal Sensorium / Orientation: awake, alert, oriented to person, oriented to place and oriented to time Motor Exam: strength 5/5 throughout and strength abnormal Psych mental status grossly normal Skin no rashes or lesions noted and no wounds MDM MDM MDM Narrative Medical decision making narrative: IV line established and patient was medicated with Toradol, morphine, and Zofran. She had good pain relief with that. Patient was noted to have a 5 mm stone in the left mid ureter causing obstruction. Urinalysis was unremarkable. At this point patient will be discharged home with urine strainers and prescription for [place]. Patient advised to follow-up with her urologist within next 3 to 5 days. Patient advised to return if worsening pain, fever, vomiting, or condition should worsen anyway. Lab Data Attestation: I reviewed the patient's lab results. Labs: Laboratory Results - last 24 hr 08/22/21 08/22/21 08/22/21 15:15 15:15 19:20 WBC 8.2 RBC 4.67 Hgb 14.4 Hct 42.7 MCV 91.4 MCH 30.8 MCHC 33.7 RDW Std Deviation 43.0 RDW Coeff of Alexander 12.8 Plt Count 296 MPV 9.7 Immature Gran % (Auto) 0.200 Neut % (Auto) 72.2 H Lymph % (Auto) 14.6 L Anson % (Auto) 8.8 Eos % (Auto) 3.8 Baso % (Auto) 0.4 Absolute Neuts (auto) 5.9 Absolute Lymphs (auto) 1.20 Nucleated RBC % 0 Sodium 140 Potassium 3.4 L Chloride 103 Carbon Dioxide 31.0 Anion Gap 6 BUN 25 H Creatinine 0.74 Estim Creat Clear Calc 35.45 Est GFR (MDRD) Af Amer 98 Est GFR (MDRD) Non-Af 81 BUN/Creatinine Ratio 33.8 H Glucose 151 H Calcium 9.9 Urine Color Yellow Urine Clarity Clear Urine pH 7.0 Ur Specific [place] 1.015 Urine Protein 30 H Urine Glucose (UA) Normal Urine Ketones Negative Urine Occult Blood 250 H Urine Nitrite Negative Urine Bilirubin Negative Urine Urobilinogen Normal Ur Leukocyte Esterase 25 H Urine RBC 10-25 SEEN Urine WBC 0-5 SEEN Ur Squamous Epith Cells 0-5 SEEN Urine Bacteria 0 SEEN Urine Mucus 1+ Radiography Diagnostic Testing: Clinical Impression(s) from Imaging Studies Abdomen/Pelvis CT 08/22/21 17:10 IMPRESSION: Obstructing 5 mm stone in the left mid ureter with associated moderate left hydroureteronephrosis. There are other scattered nonobstructing stones bilaterally. Moderately sized left spigelian fat-containing hernia with an opening defect of 1.2 cm. Diverticulosis. Electronically Signed: Dave Simental MD at 18:16 EST Tel , Service support , Discharge Plan Triage Chief Complaint: Flank Pain ED Provider: Glen Tang Dx/Rx/DC Orders Clinical Impression: Urolithiasis Instructions: Kidney Stones Expectant Tx Prescriptions: New hydrocodone-acetaminophen [hydrocodone-acetaminophen] 1 TABLET tablet 1 tab PO Q4H PRN PRN (Reason: Pain) 2 Days Qty: 15 RF: 0 ondansetron [ondansetron] 4 MG tablet 4 mg PO Q8H PRN PRN (Reason: Nausea) Qty: 10 RF: 0 naproxen 500 MG tablet 500 mg PO BID Qty: 14 RF: 0 No Action magnesium 250 mg tablet 500 mg PO QDAY RF: 0 indapamide 1.25 mg tablet 2.5 mg PO QAM RF: 0 cyanocobalamin (vitamin B-12) [Vitamin B-12] 500 mcg tablet 500 mcg PO QDAY RF: 0 potassium citrate 10 mEq (1,080 mg) tablet extended release 10 meq PO DAILY RF: 0 folic acid 400 mcg tablet 0.4 mg PO DAILY RF: 0 cholecalciferol (vitamin D3) 4,000 unit capsule 4,000 unit capsule 4,000 unit PO DAILY RF: 0 omeprazole 40 mg capsule,delayed release(DR/EC) 40 mg PO DAILY RF: 0 turmeric root extract 500 mg capsule 1,000 mg PO DAILY RF: 0 omega-3 fatty acids 1,000 mg capsule 1,000 mg PO DAILY RF: 0 ascorbate calcium (vitamin C) 500 mg capsule 500 mg capsule 2 g PO DAILY RF: 0 Ultra CoQ10 75 mg capsule 75 mg PO DAILY RF: 0 elderberry fruit 200 mg capsule 200 mg capsule PO RF: 0 nebivolol 5 mg tablet 5 mg PO DAILY RF: 0 potassium chloride 10 mEq capsule, extended release 10 meq PO DAILY RF: 0 atorvastatin 10 mg tablet 10 mg PO DAILY Qty: 90 RF: 3 albuterol sulfate 90 mcg/actuation aerosol powdr breath activated 2 inh inhalation Q6H PRN (Reason: BREATHING) RF: 0 budesonide-formoterol [Symbicort] 160-4.5 mcg/actuation HFA aerosol inhaler 2 puff INHALATION BID Qty: 3 RF: 3 Primary Care Provider: Audrey Austin Referrals: Audrey Austin DO [Primary Care Provider] - Marlena Díaz MD [STAFF PHYSICIAN] - 3-5 Days Disposition Disposition: Home, Self Care
[2021-08-22] MEDS: HYDROmorphone 1 MG/ML Syringe IV (17:23)
[2021-08-22] MEDS: 0.9% Normal Saline 1,000 ML 125 ML IV (17:23)
[2021-08-22] MEDS: Ondansetron 4 MG/2 ML Vial IV (17:23)
[2021-08-22] MEDS: Ketorolac 15 MG/ML Vial IV (17:23)
[2021-08-22 17:33] LABS: Anion Gap 6 (5-15); BUN 25 mg/dL (7-18); BUN/Creat Ratio 33.8 RATIO (10-20); Calcium,Total 9.9 mg/dL (8.5-10.1); Chloride 103 mmol/L (98-107); Creatinine, Serum 0.74 mg/dL (0.55-1.02); EST Glomerular Filtration Rate 81 mL/min (>60); Est Glom Filt Rate - Afr Amer 98 mL/min (>60); Estimated Creatinine Clearance 35.45 ml/min; Glucose 151 mg/dL (74-106); Potassium 3.4 mmol/L (3.5-5.1); Sodium Level 140 mmol/L (136-145)
[2021-08-22 17:34] LABS: Absolute Neutrophil Count 5.9 X10^3/uL (2.0-7.7); Basophil# 0.03 X10^3/uL; Basophil% 0.4 % (0-1); Eosinophil# 0.31 X10^3/uL; Eosinophils% 3.8 % (0-5); Hematocrit 42.7 % (37-47); Hemoglobin 14.4 g/dL (12.0-15.0); Lymphocyte % 14.6 % (19-41); Mean Corp Hgb Conc 33.7 g/dL (32-36); Mean Corpuscular Hgb 30.8 pg (27.0-32.0); Mean Corpuscular Volume 91.4 fL (81-99); Mean Platelet Vol. 9.7 fl (6.2-12.0); Monocyte# 0.72 X10^3/uL; Monocyte% 8.8 % (0-10); NRBC Flagged by Analyzer 0 % (0-5); Neutrophil # 5.93 X10^3/uL (2.7-7.7); Neutrophil % 72.2 % (47-70); Platelet Count 296 K/mm3 (150-450); RBC Distribution Width CV 12.8 % (11.6-14.6); Red Blood Count 4.67 M/mm3 (4.2-5.4); White Blood Count 8.2 K/mm3 (4.4-11.0)
[2021-08-22 19:25] LABS: Bacteria 0 SEEN /hpf (None Seen)
[2021-08-22 19:26] LABS: Color, Urine Yellow (Yellow); Glucose, Dipstick Normal (Normal); Ketone-Dipstick Negative (Negative); Leukocyte Esterase-Dipstick 25 /ul (Negative); Nitrite-Dipstick Negative (Negative); Occult Blood-Urine 250 /ul (Negative); Protein-Dipstick 30 mg/dl (Negative); Specific Gravity, Urine 1.015 (1.002-1.030); Urine Bilirubin Dipstick Negative (Negative); Urine Clarity Clear (Clear); Urine Urobilinogen Normal (Normal)
[2021-08-22 19:38] LABS: Red Blood Cells-Urine 10-25 SEEN /hpf (0-5)
[2021-08-22 19:39] LABS: Mucous, Urine 1+ /hpf (<or=2+); Squamous Epithelial Cells - UA 0-5 SEEN /hpf (5-10); White Blood Cells 0-5 SEEN /hpf (0-5)
[2021-08-22 20:32] VITALS: BP 133/74; PULSE 75; RESP 16; O2SAT 97
== END 2021-08-22 21:43 | disposition home or self-care (01) ==
PROVIDERS: Emergency Provider Emergency Medicine; PCP Internal Medicine; Visit Provider Emergency Medicine
DX: N13.2 Hydronephrosis with renal and ureteral calculous obstruction (principal); J45.909 Unspecified asthma, uncomplicated; M19.90 Unspecified osteoarthritis, unspecified site; E78.5 Hyperlipidemia, unspecified; Z79.899 Other long term (current) drug therapy
CPT/HCPCS: 74176; 80048; 81001; 85025; 96361; 96374; 96375; 99283; J7030; A4216; J2405

== ENCOUNTER 2021-08-31 15:07 | Outpatient (CLI) | payer MEDICARE, SELFPAY ==
[2021-09-06 15:28] LABS: Source Not Observed
== END 2021-08-31 23:59 | disposition short-term general hospital (02) ==
LOC: LAB 15:08
PROVIDERS: PCP Internal Medicine; Visit Provider Internal Medicine Endocrinology, Diabetes & Metabolism
DX: N20.0 Calculus of kidney (principal)
CPT/HCPCS: 82360

== ENCOUNTER 2021-09-05 08:15 | Outpatient (CLI) | payer MEDICARE, SELFPAY ==
[2021-09-05 08:45] LABS: Absolute Lymphocyte Count 1.31 X10^3/uL (0.83-4.51); Absolute Neutrophil Count 3.5 X10^3/uL (2.0-7.7); Basophil# 0.02 X10^3/uL; Basophil% 0.4 % (0-1); Eosinophil# 0.26 X10^3/uL; Eosinophils% 4.6 % (0-5); Hematocrit 45.3 % (37-47); Hemoglobin 14.9 g/dL (12.0-15.0); Lymphocyte # 1.31 X10^3/ul (0.83-4.51); Lymphocyte % 23.2 % (19-41); Mean Corp Hgb Conc 32.9 g/dL (32-36); Mean Corpuscular Hgb 30.4 pg (27.0-32.0); Mean Corpuscular Volume 92.4 fL (81-99); Mean Platelet Vol. 9.6 fl (6.2-12.0); Monocyte# 0.55 X10^3/uL; Monocyte% 9.7 % (0-10); NRBC Flagged by Analyzer 0 % (0-5); Neutrophil # 3.49 X10^3/uL (2.7-7.7); Neutrophil % 61.7 % (47-70); Platelet Count 301 K/mm3 (150-450); RBC Distribution Width CV 12.7 % (11.6-14.6); RBC Distribution Width SD 42.9 fl (35.1-43.9); White Blood Count 5.7 K/mm3 (4.4-11.0)
[2021-09-05 09:13] LABS: Vitamin B12 652 pg/mL (211-911)
[2021-09-05 09:17] LABS: ALB/GLOB Ratio 1.1 RATIO (0.9-2.4); AST(SGOT) 15 U/L (15-37); Alanine Aminotransfer ALT/SGPT 28 U/L (13-56); Albumin, Serum 3.8 g/dL (3.2-5.0); Alkaline Phosphatase 70 U/L (45-117); Anion Gap 3 (5-15); BUN 19 mg/dL (7-18); BUN/Creat Ratio 27.2 RATIO (10-20); Calcium,Total 9.5 mg/dL (8.5-10.1); Chloride 102 mmol/L (98-107); Cholesterol 179 mg/dL (200); EST Glomerular Filtration Rate 87 mL/min (>60); Est Glom Filt Rate - Afr Amer 105 mL/min (>60); Globulin 3.6 g/dL (2.2-4.2); Glucose 110 mg/dL (74-106); High Density Lipoprotein 51 mg/dL; Potassium 3.7 mmol/L (3.5-5.1); Protein, Total 7.4 g/dL (6.4-8.2); Sodium Level 138 mmol/L (136-145); Triglycerides 139 mg/dL; Very Low Density Lipoprotein 28 mg/dL (5-40)
[2021-09-05 14:19] LABS: Hemoglobin A1c 5.3 % (3.8-5.6)
== END 2021-09-05 23:59 | disposition short-term general hospital (02) ==
LOC: LAB 08:16
PROVIDERS: PCP Internal Medicine; Referring Provider Internal Medicine; Visit Provider Internal Medicine
DX: R73.09 Other abnormal glucose (principal); E78.49 Other hyperlipidemia; D51.8 Other vitamin B12 deficiency anemias
CPT/HCPCS: 36415; 80053; 80061; 82607; 83036; 85025

== ENCOUNTER 2021-09-07 11:36 | Outpatient (CLI) | payer MEDICARE, SELFPAY ==
--- NOTE | 2021-09-07 11:38 | RAD_ITS ---
STUDY: X-RAY - RIGHT HAND, ATTENTION FOURTH FINGER REASON FOR EXAM: Female, 75 years old. Pain and swelling TECHNIQUE: 3 view(s) of the finger were obtained. COMPARISON: None. FINDINGS: There is an acute, minimally displaced osteochondral fracture in the distal aspect of the middle phalanx of the fourth digit of the right hand with soft tissue swelling. No other demonstrated fractures. Joint spaces well-preserved RAD/Finger(s) Min 2 Views IMPRESSION: Acute, minimally displaced, osteochondral fracture in the distal half of the middle phalanx of the fourth digit with soft tissue swelling Electronically Signed: Cristino Olmstead MD at 12:57 EST ,
== END 2021-09-07 23:59 | disposition short-term general hospital (02) ==
PROVIDERS: PCP Internal Medicine; Referring Provider Internal Medicine; Visit Provider Internal Medicine
DX: M79.644 Pain in right finger(s) (principal)
CPT/HCPCS: 73140

== ENCOUNTER 2021-11-02 07:33 | Outpatient (CLI) | payer MEDICARE, SELFPAY ==
[2021-11-02 08:38] LABS: ALB/GLOB Ratio 1.2 RATIO (0.9-2.4); AST(SGOT) 16 U/L (15-37); Alanine Aminotransfer ALT/SGPT 29 U/L (13-56); Alkaline Phosphatase 59 U/L (45-117); Anion Gap 2 (5-15); BUN 17 mg/dL (7-18); BUN/Creat Ratio 25.9 RATIO (10-20); Calcium,Total 9.9 mg/dL (8.5-10.1); Chloride 103 mmol/L (98-107); Creatinine, Serum 0.66 mg/dL (0.55-1.02); EST Glomerular Filtration Rate 93 mL/min (>60); Est Glom Filt Rate - Afr Amer 113 mL/min (>60); Globulin 3.2 g/dL (2.2-4.2); Glucose 113 mg/dL (74-106); Magnesium 2.2 mg/dL (1.6-2.6); Potassium 3.6 mmol/L (3.5-5.1); Protein, Total 7.2 g/dL (6.4-8.2); Sodium Level 140 mmol/L (136-145)
== END 2021-11-02 23:59 | disposition home or self-care (01) ==
LOC: LAB 07:34
PROVIDERS: PCP Internal Medicine; Visit Provider Internal Medicine Endocrinology, Diabetes & Metabolism
DX: E21.1 Secondary hyperparathyroidism, not elsewhere classified (principal); E55.9 Vitamin D deficiency, unspecified
CPT/HCPCS: 36415; 80053; 82306; 83735; 83970

== ENCOUNTER 2021-11-14 13:41 | Outpatient (CLI) | payer MEDICARE, SELFPAY ==
--- NOTE | 2021-11-14 13:44 | BI_ITS ---
MAMMOGRAPHY - BILATERAL SCREENING REASON FOR EXAM: Female, 76 years old. Routine annual screening examination. PERTINENT HISTORY: Daughter with breast cancer. History of prior bilateral breast biopsies. TECHNIQUE: Digital bilateral breast junaid (3D mammographic acquisition) in the CC and MLO projections. 2-D mediolateral oblique (MLO) and craniocaudad (CC) views of both breasts were obtained. CAD: Full Field Digital Mammography with Computer Added Detection was performed. COMPARISON: Comparison is made with prior examination dated 10/27/2020 and 10/23/2019. FINDINGS: Breast Composition: The breasts are heterogeneously dense, which may obscure small masses. There are no dominant masses or suspicious calcifications. Stable calcified nodule in the upper lateral aspect of the right breast. The previously seen nodular density in the upper lateral aspect of the left breast has decreased in size. It presently measures 3.3 mm. Stable bilateral axillary lymph nodes. No other significant abnormalities are identified. There has been no significant change since the prior study. BI/SCRN MAMM (CAD)W/JUNAID BILAT IMPRESSION: Stable bilateral screening mammogram. Yearly follow-up mammogram recommended. (A) ASSESSMENT CATEGORY: BIRADS Category 2: Benign. A letter regarding these results will be sent to the patient by the facility within 30 days. Approximately 10% of breast cancers are not detected by mammography. A normal mammogram should not delay biopsy of a clinically suspicious abnormality. [id number] Electronically Signed: Corey Rodriguez MD at 14:45 EDT ,
== END 2021-11-14 23:59 | disposition home or self-care (01) ==
LOC: OPBI 13:42
PROVIDERS: PCP Internal Medicine; Referring Provider Internal Medicine; Visit Provider Internal Medicine
DX: Z12.31 Encounter for screening mammogram for malignant neoplasm of breast (principal); Z80.3 Family history of malignant neoplasm of breast
CPT/HCPCS: 77063; 77067

== ENCOUNTER 2022-03-02 17:08 | Outpatient (CLI) | payer MEDICARE, SELFPAY ==
[2022-03-02 17:23] VITALS: BP 122/68; PULSE 64; RESP 16; TEMP 36.4; O2SAT 94; BMI 27.1
[2022-03-02] MEDS: BEBTELOVIMAB 175 MG/2 ML VIAL IV (17:54)
[2022-03-02] MEDS: 0.9% Saline Lock 10 ML Syringe IV (17:54)
[2022-03-02 18:00] VITALS: BP 122/56; PULSE 64; RESP 16; TEMP 36.9; O2SAT 93
[2022-03-02 19:00] VITALS: BP 126/73; PULSE 62; RESP 16; TEMP 36.8; O2SAT 93
== END 2022-03-02 19:00 | disposition home or self-care (01) ==
LOC: MEDOUTP 17:08 → MS2 17:09
PROVIDERS: PCP Internal Medicine; Visit Provider Nurse Practitioner Adult Health
DX: U07.1 COVID-19 (principal)
CPT/HCPCS: 96374; M0222; Q0222; A4216

== ENCOUNTER 2022-03-15 07:13 | Day surgery (SDC) | payer MEDICARE, SELFPAY ==
[2022-03-15] VITALS (7 sets, daily range): BP systolic 97–121; BP diastolic 47–78; PULSE 58–78; RESP 16–18; TEMP 36–36.6; O2SAT 96–97; BMI 27.1
[2022-03-15] MEDS: Lactated Ringers 1,000 ML 15 ML IV (07:58)
--- NOTE | 2022-03-15 08:30 | COLBX_PTH ---
PATIENT: JS MEEKS LOC: EN U#:[id number] AGE/SX: 76/F ROOM: RE03/15/[address]: Dr. Eduard Eid DO : 1945 BED: DIS: 03/15/2022 SPEC #: [id number] RECD: 03/15/22 10:18 STATUS: MILAN REBob #: [id number] YESENIA: 03/15/22 08:[address]: Eduard Eid DEPT: SURGICAL PATHOLOGY RECD BY: Ksenia Bernal ENTERED: 03/15/22 10:58 SP TYPE: COLON BX OTHR DR: Dr. Audrey Austin DO Tissues: Cecum, NOS Procedures: Surgery Specimen Level IV HEADER OPERATION: Colonoscopy ? open access (MAC) PRE-OP DIAGNOSIS: Screening TISSUE SUBMITTED: Cecum polyp MICROSCOPIC DIAGNOSIS Cecum polyp, biopsy: Fragments of tubular adenoma. CAROLA:samantha 03/16/2022 MICROSCOPIC DESCRIPTION Slides are reviewed. GROSS DESCRIPTION Received in fixative is one container labeled with the patient's name and designated cecum polyp. The specimen consists of a cole-pink polyp measuring 1 x 0.7 x 0.3 cm. Two minute fragments of cole soft tissue are also noted. The entire specimen is submitted in one cassette. / SJ:rg 03/15/2022 TC:1 CPT: 43468
--- NOTE | 2022-03-15 08:31 | HP.PCM_ITS ---
HPI - General General Date of Admission: 03/15/22 Date of Service: 03/15/22 Chief Complaint: Screening colonoscopy HPI Narrative JS MEEKS, is a 76 F who presents today for screening colonoscopy. She has a past medical history of asthma tension, hyperlipidemia who arrives here for screening colonoscopy. She had a colonoscopy possibly 10 years ago. Not have any history of polyps. She having any chest pain or breath. She is not having any nausea. She not have any headache or dizziness. She does have a remote history of hypertension which is been under control. All of the 16 review of systems are negative except observed positive mentioned HPI. [facility] Medical History (Updated 03/08/22 @ 15:32 by Colleen Waller) Asthma Bronchospasm Cardiology follow-up encounter Chronic cough Chronic cough COVID-19 (05/09/21) Dietary restriction Dysphagia Folliculitis Gastric reflux High cholesterol History of echocardiogram History of irregular heartbeat History of kidney stones History of steroid therapy History of stress test Hx of neck injury Hyperlipidemia Injury of head and neck Kidney stone Kidney stones Kyphoscoliosis and scoliosis Meningioma Non-smoker Normal stress echocardiogram Osteoporosis Palpitations Post-menopausal Restrictive airway disease Shortness of breath on exertion Spinal fracture Wears contact lenses Home Medications magnesium 250 mg tablet 200 mg PO QDAY 11/19/17 [History Last Taken Unknown] indapamide 1.25 mg tablet 2.5 mg PO QAM 11/25/18 [History Last Taken Unknown] potassium citrate 10 mEq (1,080 mg) tablet,extended release 10 meq PO DAILY 11/25/18 [History Last Taken Unknown] omega-3 fatty acids 1,000 mg capsule 1,000 mg PO DAILY 08/11/19 [History Last Taken Unknown] omeprazole 40 mg capsule,delayed release 40 mg PO DAILY 08/11/19 [History Last Taken 03/15/22] turmeric root extract 500 mg capsule 1,500 mg PO DAILY 08/11/19 [History Last Taken Unknown] ascorbate calcium (vitamin C) 500 mg capsule 2 g PO DAILY 11/17/19 [History Last Taken Unknown] cholecalciferol (vitamin D3) 100 mcg (4,000 unit) capsule 4,000 unit PO DAILY 11/17/19 [History Last Taken Unknown] cyanocobalamin (vitamin B-12) 500 mcg tablet (Vitamin B-12) 500 mcg PO QDAY 11/17/19 [History Last Taken Unknown] folic acid 400 mcg tablet 0.4 mg PO DAILY 11/17/19 [History Last Taken Unknown] coenzyme Q10 75 mg capsule (Ultra CoQ10) 75 mg PO DAILY 04/19/20 [History Last Taken Unknown] elderberry fruit 200 mg capsule 200 mg PO DAILY 04/19/20 [History Last Taken Unknown] nebivolol 5 mg tablet (Bystolic) 5 mg PO DAILY 11/17/20 [History Last Taken Unknown] potassium chloride 10 mEq capsule,extended release 10 meq PO DAILY 11/17/20 [History Last Taken Unknown] albuterol sulfate 90 mcg/actuation breath activated powder inhaler 2 inh inhalation Q6H PRN BREATHING 01/13/21 [History Last Taken 03/15/22] cephalexin 250 mg tablet 250 mg PO QHS 12/11/21 [History Last Taken Unknown] natures balance See Rx Instructions PO TID 12/15/21 [History Last Taken Unknown] atorvastatin 10 mg tablet 10 mg PO DAILY #90 tabs 12/18/21 [Rx Last Taken Unknown] budesonide-formoterol HFA 160 mcg-4.5 mcg/actuation aerosol inhaler (Symbicort) 2 puff inhalation BID #3 ea 01/10/22 [Rx Last Taken Unknown] Allergy/AdvReac Type Severity Reaction Status Date / Time Tetracyclines Allergy Severe [employer] EFFECTS Verified 03/15/22 07:37 caffeine AdvReac Severe Upset Verified 03/15/22 07:37 Stomach gluten AdvReac Other Verified 03/15/22 07:37 metoprolol AdvReac bronchospas Verified 03/15/22 07:37 m/cough/dys pnea minocycline HCl AdvReac Other Verified 03/15/22 07:37 [From Minocin] depth perception Skin Cleanser Combination AdvReac Other Verified 03/15/22 07:37 No.4 [From Minocin] Sulfa (Sulfonamide AdvReac Other Verified 03/15/22 07:37 Antibiotics) Family History Father , Age 81 Prostate cancer Mother Ulcerative colitis Grandmother Cancer Sister Glaucoma Sister Osteoporosis Brother Intracranial bleed Daughter Cancer breast Surgical History (Updated 03/08/22 @ 15:32 by Colleen Waller) History of appendectomy History of breast biopsy History of lithotripsy History of total abdominal hysterectomy Social History Smoking Status: Never smoker alcohol intake: never substance use type: does not use caffeine: No ROS Review of Systems ROS Unobtainable: other Constitutional Constitutional: Denies fatigue, fever(s), poor appetite, weight gain or weight loss ENT HEENT: Denies mouth lesions Cardiovascular Cardiovascular: Denies abdominal bloating, abdominal edema or abdominal pain Respiratory/Chest Respiratory/Chest: Denies change in mental status, change in phlegm color, chest congestion or chest tightness Gastrointestinal Gastrointestinal: Denies belching, bloating, change in bowel habits, change in stool character, chewing difficulty, coffee ground emesis, constipation, cramping, diarrhea, dyspepsia, dysphagia, early satiety, excessive flatus, fecal incontinence, heartburn, hematemesis, hematochezia, hemorrhoids, loose stools, melena, nausea, odynophagia, rectal bleeding, tenesmus, vomiting or weight changes Genitourinary Genitourinary: Denies abdominal discomfort, burning urination or itching Musculoskeletal Musculoskeletal: Reports as per HPI; Denies muscle weakness or myalgias Integumentary Integumentary: Denies jaundice Neurologic Neurologic: Denies lack of coordination or weakness Psychiatric Psychiatric: Denies confusion, depression, memory loss, mood swings, paranoia or suicidal ideation Endocrine Endocrinology: Denies systems reviewed and no addt'l complaints, except as documented Hematologic/Lymphatic Hematologic/Lymphatic: Denies anemia, easy bleeding, easy bruising or lymphadenopathy Allergic/Immunologic Allergic/Immunologic: Denies systems reviewed and no addt'l complaints, except as documented Vital Signs Vital Signs Vital Signs: 03/15/22 07:39 03/15/22 07:39 Temperature 97.2 F L Temperature Source Temporal Pulse Rate 61 Respiratory Rate 16 Respiratory Pattern Normal Blood Pressure 112/52 L Blood Pressure Mean 72 Blood Pressure Source Monitor Blood Pressure Position Semi-Fowlers Blood Pressure Location Left Arm Pulse Ox 96 Oxygen Delivery Method Room Air Weight Weight: 138 lb 14.259 oz Body Mass Index (BMI) 27.1 Physical Exam Const alert, oriented x3, no apparent distress, healthy appearing and well nourished General Appearance: cooperative, comfortable, well kempt and well developed Orientation / Consciousness: awake and oriented to person HEENT Head and Scalp: normocephalic and atraumatic Face and Sinus: normal facial exam Mouth: oral and palatal mucosa normal Eyes General Eye: normal appearance of both eyes Neck full ROM Lymph Lymphatic: no lymphadenopathy noted Chest inspection of chest normal Resp normal respiratory effort and no use of accessory muscles Cardio regular rate and regular rhythm GI normal to inspection, nondistended, normoactive bowel sounds, soft to palpation, non-tender, non-distended and no masses Auscultation: normoactive bowel sounds Palpation: soft Percussion: normal to percussion Rectal Exam: visual inspection normal and normal sphincter tone no CVA tenderness Back/Spine no CVA tenderness and normal ROM Extremity normal to inspection Peripheral Pulses: Yes pulses 2+ throughout Skin no rashes or lesions noted General Skin Exam: no breakdown, elasticity normal and turgor normal Neuro oriented x3 Motor Exam: strength 5/5 throughout Psych mental status grossly normal Appearance: grossly normal Attitude: calm Activity / Motor Behavior: appropriate eye contact Speech: normal speech Thought Process: normal thought process Thought Content: normal thought content Attention / Concentration: attention grossly intact Memory / Cognition: memory grossly intact Insight: insight good Judgement: judgement good Assessment & Plan Assessment/Plan (1) Encounter for screening for malignant neoplasm of colon: PLAN: She was explained alternatives, risk, benefits including not withstanding bleeding, infection, sepsis, perforation, need for emergent surgery . She will have an ASA of 1.
--- NOTE | 2022-03-15 09:07 | OP.COLON_ITS ---
Patient Name: Rosa Lucio Procedure Date: 03/15/2022 8:34 AM Date of : 1945 Age: 76 Procedure: Colonoscopy Indications: Screening for colorectal malignant neoplasm Providers: Eduard Eid DO Medicines: Monitored Anesthesia Care Patient Profile: This is a 76 year old female. Refer to note in patient chart for documentation of history and physical. Last Colonoscopy: 10 years ago. Complications: No immediate complications. Procedure: Pre-Anesthesia Assessment: - Prior to the procedure, a History and Physical was performed, and patient medications and allergies were reviewed. The risks and benefits of the procedure and the sedation options and risks were discussed with the patient. All questions were answered and informed consent was obtained. Patient identification and proposed procedure were verified by the physician in the pre-procedure area. Mental Status Examination: alert and oriented. Airway Examination: normal oropharyngeal airway and neck mobility. Respiratory Examination: clear to auscultation. CV Examination: normal. Prophylactic Antibiotics: The patient does not require prophylactic antibiotics. Prior Anticoagulants: The patient has taken no previous anticoagulant or antiplatelet agents. After reviewing the risks and benefits, the patient was deemed in satisfactory condition to undergo the procedure. The anesthesia plan was to use moderate sedation / analgesia (conscious sedation). Immediately prior to administration of medications, the patient was re-assessed for adequacy to receive sedatives. The heart rate, respiratory rate, oxygen saturations, blood pressure, adequacy of pulmonary ventilation, and response to care were monitored throughout the procedure. The physical status of the patient was re-assessed after the procedure. After I obtained informed consent, the scope was passed under direct vision. Throughout the procedure, the patient's blood pressure, pulse, and oxygen saturations were monitored continuously. The pediatric colonoscope was introduced through the anus and advanced to the cecum, identified by appendiceal orifice and ileocecal valve. The colonoscopy was performed without difficulty. The patient tolerated the procedure well. The quality of the bowel preparation was good. Scope In: 8:45:06 AM Scope Withdrawal Time 0 hours 10 minutes 31 seconds Scope Out: 9:02:13 AM Total Procedure Duration Time 0 hours 17 minutes 7 seconds Findings: The perianal and digital rectal examinations were normal. A 5 mm polyp was found in the cecum. The polyp was sessile. The polyp was removed with a hot snare. Resection and retrieval were complete. Verification of patient identification for the specimen was done. Estimated blood loss was minimal. A few small and large-mouthed diverticula were found in the recto-sigmoid colon, sigmoid colon and hepatic flexure. There was active bleeding coming from the diverticular opening. Impression: - One 5 mm polyp in the cecum, removed with a hot snare. Resected and retrieved. - Moderate diverticulosis in the recto-sigmoid colon, in the sigmoid colon and at the hepatic flexure. There was active bleeding coming from the diverticular opening. Recommendation: - Discharge patient to home. - Resume previous diet. - Continue present medications. - Await pathology results. - Repeat colonoscopy in 5 years for surveillance. Procedure Code(s): --- Professional --- 55612, Colonoscopy, flexible; with removal of tumor(s), polyp(s), or other lesion(s) by snare technique CPT copyright 2017 [employer]. All rights reserved. The codes documented in this report are preliminary and upon guide winder review may be revised to meet current compliance requirements. Eduard Eid DO 03/15/2022 9:07:02 AM This report has been signed electronically. Number of Addenda: 1 Note Initiated On: 03/15/2022 8:34 AM Addendum Number: 1 Addendum Date: 05/17/2022 6:28:55 AM MAC was used as sedation for this procedure. Eduard Eid DO 05/17/2022 6:29:02 AM This report has been signed electronically.
--- NOTE | 2022-03-15 09:07 | OP.CCLET_ITS ---
05/17/2022 Audrey Austin Re : Colonoscopy procedure for Rosa Austin This procedure was performed on March. My impressions and recommendations are as follows: Impressions : - One 5 mm polyp in the cecum, removed with a hot snare. Resected and retrieved. - Moderate diverticulosis in the recto-sigmoid colon, in the sigmoid colon and at the hepatic flexure. There was active bleeding coming from the diverticular opening. Recommendations : - Discharge patient to home. - Resume previous diet. - Continue present medications. - Await pathology results. - Repeat colonoscopy in 5 years for surveillance. My findings are described in the full procedure note, which is enclosed. If I can be of further assistance, please feel free to contact me at . Sincerely, Eduard Friend, 03/15/2022 9:07:02 AM This report has been signed electronically.
== END 2022-03-15 09:52 | disposition home or self-care (01) ==
LOC: EN 07:16 → AC 07:16
PROVIDERS: PCP Internal Medicine; Referring Provider Internal Medicine; Visit Provider Internal Medicine Gastroenterology
PROC: 0DJD8ZZ Inspection of Lower Intestinal Tract, Via Natural or Artificial Opening Endoscopic (ICD-10-PCS; CPT 45378; principal; 2022-03-15 08:25)
DX: Z12.11 Encounter for screening for malignant neoplasm of colon (principal); D12.0 Benign neoplasm of cecum; K57.30 Diverticulosis of large intestine without perforation or abscess without bleeding; E78.00 Pure hypercholesterolemia, unspecified; J45.909 Unspecified asthma, uncomplicated; Z79.899 Other long term (current) drug therapy
CPT/HCPCS: 45385; 88305; J7120; J2405

== ENCOUNTER → 2022-03-27 | Outpatient (CLI) | payer MEDICARE, SELFPAY ==
[2022-03-27 08:37] LABS: PTHIN 82.6 pg/mL (18.4-80.1)
[2022-03-27 08:44] LABS: ALB/GLOB Ratio 1.1 RATIO (0.9-2.4); AST(SGOT) 18 U/L (15-37); Alanine Aminotransfer ALT/SGPT 28 U/L (13-56); Albumin, Serum 3.9 g/dL (3.2-5.0); Alkaline Phosphatase 55 U/L (45-117); Anion Gap 5 (5-15); BUN 14 mg/dL (7-18); BUN/Creat Ratio 20.1 RATIO (10-20); Calcium,Total 10.1 mg/dL (8.5-10.1); Chloride 104 mmol/L (98-107); Cholesterol 168 mg/dL (200); EST Glomerular Filtration Rate 87 mL/min (>60); Est Glom Filt Rate - Afr Amer 105 mL/min (>60); Globulin 3.4 g/dL (2.2-4.2); Glucose 105 mg/dL (74-106); High Density Lipoprotein 53 mg/dL; Magnesium 2.4 mg/dL (1.6-2.6); Potassium 3.5 mmol/L (3.5-5.1); Protein, Total 7.3 g/dL (6.4-8.2); Sodium Level 141 mmol/L (136-145); Thyroid Stim Hormone (TSH) 0.65 uIU/mL (0.358-3.74); Triglycerides 129 mg/dL; Very Low Density Lipoprotein 26 mg/dL (5-40)
== END | disposition home or self-care (01) ==
LOC: LAB 07:51
PROVIDERS: PCP Internal Medicine; Referring Provider Internal Medicine Endocrinology, Diabetes & Metabolism; Visit Provider Internal Medicine Endocrinology, Diabetes & Metabolism
DX: M81.0 Age-related osteoporosis without current pathological fracture (principal); E87.6 Hypokalemia; E78.2 Mixed hyperlipidemia
CPT/HCPCS: 36415; 80053; 80061; 82306; 83735; 83970; 84443

== ENCOUNTER → 2022-04-13 | Outpatient (CLI) | payer MEDICARE, SELFPAY ==
[2022-04-13 12:04] LABS: Anion Gap 6 (5-15); BUN 23 mg/dL (7-18); BUN/Creat Ratio 35.6 RATIO (10-20); Calcium,Total 10.3 mg/dL (8.5-10.1); Chloride 103 mmol/L (98-107); Creatinine, Serum 0.65 mg/dL (0.55-1.02); EST Glomerular Filtration Rate 95 mL/min (>60); Est Glom Filt Rate - Afr Amer 115 mL/min (>60); Glucose 106 mg/dL (74-106); Potassium 3.7 mmol/L (3.5-5.1); Sodium Level 141 mmol/L (136-145)
[2022-04-13 12:07] LABS: PTHIN 60.5 pg/mL (18.4-80.1)
== END | disposition home or self-care (01) ==
PROVIDERS: PCP Internal Medicine; Referring Provider Physician Assistant; Visit Provider Physician Assistant
DX: E21.1 Secondary hyperparathyroidism, not elsewhere classified (principal); M81.0 Age-related osteoporosis without current pathological fracture
CPT/HCPCS: 36415; 80048; 83970

== ENCOUNTER → 2022-04-26 | Outpatient (CLI) | payer MEDICARE, SELFPAY ==
--- NOTE | 2022-04-26 13:45 | PFTCOMP_ITS ---
COMPLETE PULMONARY FUNCTION TEST INTERPRETATION Brief HPI: Patient is a 76-year-old female, currently under the care of Naima Urrutia, who presents to [facility] for complete pulmonary function tests secondary to diagnosis of asthma. Respiratory therapist reports good effort and reproducible results. Interpretation: Forced expiration spirometry shows a moderate large airways obstructive ventilatory defect with an FEV1 of 68% predicted. There is no significant bronchodilator response by strict ATS criteria. Spirograms are of good quality and plateau slowly, indicating slowly emptying areas of the lungs. The respiratory flow volume loop shows decreased expiratory flow rates at all lung volumes consistent with airway obstruction. Lung volumes by body plethysmography show an elevated total lung capacity at 6.33 L, 160% predicted. FRC and RV are elevated out of proportion. Lung volume measurements are consistent with hyperinflation and air-trapping. Diffusion capacity by carbon monoxide is elevated at 124% predicted. The airway resistance is elevated. Compared to previous pulmonary function tests from 05/03/2020, there is been a significant worsening in air trapping with hyperinflation. Impression: Irreversible moderate large airways obstructive ventilatory defect resulting in air trapping with hyperinflation, but preserved diffusion capacity
== END | disposition home or self-care (01) ==
LOC: PSN 09:39
PROVIDERS: PCP Internal Medicine; Referring Provider Nurse Practitioner Acute Care; Visit Provider Nurse Practitioner Acute Care
DX: J45.50 Severe persistent asthma, uncomplicated (principal)
CPT/HCPCS: 94060; 94726; 94729

== ENCOUNTER → 2022-06-14 | Outpatient (CLI) | payer MEDICARE, SELFPAY ==
[2022-06-14 08:23] LABS: Absolute Lymphocyte Count 1.37 X10^3/uL (0.83-4.51); Absolute Neutrophil Count 2.8 X10^3/uL (2.0-7.7); Basophil# 0.02 X10^3/uL; Basophil% 0.4 % (0-1); Eosinophil# 0.22 X10^3/uL; Eosinophils% 4.4 % (0-5); Hematocrit 42.8 % (37-47); Lymphocyte # 1.37 X10^3/ul (0.83-4.51); Lymphocyte % 27.4 % (19-41); Mean Corpuscular Hgb 32.4 pg (27.0-32.0); Mean Corpuscular Volume 92.4 fL (81-99); Mean Platelet Vol. 9.7 fl (6.2-12.0); Monocyte# 0.55 X10^3/uL; NRBC Flagged by Analyzer 0 % (0-5); Neutrophil # 2.83 X10^3/uL (2.7-7.7); Neutrophil % 56.6 % (47-70); Platelet Count 272 K/mm3 (150-450); RBC Distribution Width CV 12.8 % (11.6-14.6); RBC Distribution Width SD 43.3 fl (35.1-43.9); Red Blood Count 4.63 M/mm3 (4.2-5.4)
[2022-06-14 08:53] LABS: ALB/GLOB Ratio 1.1 RATIO (0.9-2.4); AST(SGOT) 19 U/L (15-37); Alanine Aminotransfer ALT/SGPT 35 U/L (13-56); Albumin, Serum 3.9 g/dL (3.2-5.0); Alkaline Phosphatase 56 U/L (45-117); Anion Gap 2 (5-15); BUN 16 mg/dL (7-18); Calcium,Total 9.9 mg/dL (8.5-10.1); Chloride 105 mmol/L (98-107); Cholesterol 180 mg/dL (200); Creatinine, Serum 0.64 mg/dL (0.55-1.02); EST Glomerular Filtration Rate 96 mL/min (>60); Est Glom Filt Rate - Afr Amer 116 mL/min (>60); Globulin 3.4 g/dL (2.2-4.2); Glucose 105 mg/dL (74-106); High Density Lipoprotein 52 mg/dL; Potassium 3.5 mmol/L (3.5-5.1); Protein, Total 7.3 g/dL (6.4-8.2); Sodium Level 139 mmol/L (136-145); Triglycerides 98 mg/dL; Very Low Density Lipoprotein 20 mg/dL (5-40)
[2022-06-14 08:58] LABS: Vitamin B12 496 pg/mL (211-911); Vitamin D,25 Hydroxy 67.4 ng/mL
[2022-06-14 09:04] LABS: Hemoglobin A1c 5.5 % (3.8-5.6)
== END | disposition home or self-care (01) ==
LOC: LAB 07:39
PROVIDERS: PCP Internal Medicine; Visit Provider Internal Medicine
DX: E78.5 Hyperlipidemia, unspecified (principal); E55.9 Vitamin D deficiency, unspecified; D51.8 Other vitamin B12 deficiency anemias; R73.09 Other abnormal glucose
CPT/HCPCS: 36415; 80053; 80061; 82306; 82607; 83036; 85025

== ENCOUNTER → 2022-08-14 | Outpatient (CLI) | payer MEDICARE, SELFPAY ==
[2022-08-14 15:16] LABS: ALB/GLOB Ratio 1.1 RATIO (0.9-2.4); AST(SGOT) 17 U/L (15-37); Alanine Aminotransfer ALT/SGPT 31 U/L (13-56); Albumin, Serum 3.8 g/dL (3.2-5.0); Alkaline Phosphatase 52 U/L (45-117); Anion Gap 6 (5-15); BUN 15 mg/dL (7-18); BUN/Creat Ratio 26.9 RATIO (10-20); Chloride 102 mmol/L (98-107); Creatinine, Serum 0.56 mg/dL (0.55-1.02); EST Glomerular Filtration Rate 112 mL/min (>60); Est Glom Filt Rate - Afr Amer 136 mL/min (>60); Globulin 3.4 g/dL (2.2-4.2); Glucose 102 mg/dL (74-106); Magnesium 2.1 mg/dL (1.6-2.6); Potassium 3.5 mmol/L (3.5-5.1); Protein, Total 7.2 g/dL (6.4-8.2); Sodium Level 140 mmol/L (136-145)
[2022-08-14 15:18] LABS: Vitamin D,25 Hydroxy 96.4 ng/mL
== END | disposition home or self-care (01) ==
LOC: LAB 13:48
PROVIDERS: PCP Internal Medicine; Visit Provider Internal Medicine Endocrinology, Diabetes & Metabolism
DX: M81.0 Age-related osteoporosis without current pathological fracture (principal); E21.1 Secondary hyperparathyroidism, not elsewhere classified; E55.9 Vitamin D deficiency, unspecified
CPT/HCPCS: 36415; 80053; 82306; 83735; 83970

== ENCOUNTER → 2022-09-14 | Outpatient (CLI) | payer MEDICARE, SELFPAY ==
[2022-09-14 08:38] LABS: Absolute Lymphocyte Count 1.41 X10^3/uL (0.83-4.51); Absolute Neutrophil Count 3.3 X10^3/uL (2.0-7.7); Basophil# 0.03 X10^3/uL; Basophil% 0.5 % (0-1); Eosinophil# 0.26 X10^3/uL; Eosinophils% 4.7 % (0-5); Hematocrit 43.1 % (37-47); Hemoglobin 14.5 g/dL (12.0-15.0); Lymphocyte # 1.41 X10^3/ul (0.83-4.51); Lymphocyte % 25.3 % (19-41); Mean Corp Hgb Conc 33.6 g/dL (32-36); Mean Corpuscular Hgb 31.9 pg (27.0-32.0); Mean Corpuscular Volume 94.7 fL (81-99); Mean Platelet Vol. 9.3 fl (6.2-12.0); Monocyte# 0.56 X10^3/uL; Monocyte% 10.1 % (0-10); NRBC Flagged by Analyzer 0 % (0-5); Neutrophil % 59.2 % (47-70); Platelet Count 254 K/mm3 (150-450); RBC Distribution Width CV 13.6 % (11.6-14.6); RBC Distribution Width SD 47.4 fl (35.1-43.9); Red Blood Count 4.55 M/mm3 (4.2-5.4); White Blood Count 5.6 K/mm3 (4.4-11.0)
[2022-09-14 09:03] LABS: ALB/GLOB Ratio 1.1 RATIO (0.9-2.4); AST(SGOT) 13 U/L (15-37); Alanine Aminotransfer ALT/SGPT 26 U/L (13-56); Albumin, Serum 3.8 g/dL (3.2-5.0); Alkaline Phosphatase 48 U/L (45-117); Anion Gap 7 (5-15); BUN 25 mg/dL (7-18); BUN/Creat Ratio 33.7 RATIO (10-20); Calcium,Total 10.3 mg/dL (8.5-10.1); Chloride 103 mmol/L (98-107); Cholesterol 178 mg/dL (200); Creatinine, Serum 0.74 mg/dL (0.55-1.02); EST Glomerular Filtration Rate 81 mL/min (>60); Est Glom Filt Rate - Afr Amer 98 mL/min (>60); Globulin 3.5 g/dL (2.2-4.2); Glucose 110 mg/dL (74-106); High Density Lipoprotein 56 mg/dL; Potassium 3.7 mmol/L (3.5-5.1); Protein, Total 7.3 g/dL (6.4-8.2); Sodium Level 143 mmol/L (136-145); Triglycerides 121 mg/dL; Very Low Density Lipoprotein 24 mg/dL (5-40)
[2022-09-14 09:16] LABS: Hemoglobin A1c 5.6 % (3.8-5.6)
[2022-09-14 10:49] LABS: Microalbumin:Creatinine Ratio 17.3 mg/g CRE (<30 mg/g CRE)
== END | disposition home or self-care (01) ==
LOC: LAB 08:25
PROVIDERS: PCP Internal Medicine; Referring Provider Internal Medicine; Visit Provider Internal Medicine
DX: E78.5 Hyperlipidemia, unspecified (principal); R73.09 Other abnormal glucose
CPT/HCPCS: 36415; 80053; 80061; 82043; 82570; 83036; 85025

== ENCOUNTER → 2022-09-25 | Outpatient (CLI) | payer MEDICARE, SELFPAY ==
[2022-09-25 09:17] LABS: Anion Gap 7 (5-15); BUN 24 mg/dL (7-18); BUN/Creat Ratio 32.2 RATIO (10-20); Calcium,Total 9.9 mg/dL (8.5-10.1); Chloride 101 mmol/L (98-107); Creatinine, Serum 0.75 mg/dL (0.55-1.02); EST Glomerular Filtration Rate 80 mL/min (>60); Est Glom Filt Rate - Afr Amer 97 mL/min (>60); Glucose 106 mg/dL (74-106); Potassium 3.4 mmol/L (3.5-5.1); Sodium Level 139 mmol/L (136-145)
== END | disposition home or self-care (01) ==
LOC: LAB 08:05
PROVIDERS: PCP Internal Medicine; Referring Provider Internal Medicine Endocrinology, Diabetes & Metabolism; Visit Provider Internal Medicine Endocrinology, Diabetes & Metabolism
DX: M81.0 Age-related osteoporosis without current pathological fracture (principal)
CPT/HCPCS: 36415; 80048

== ENCOUNTER → 2022-10-04 | Outpatient (CLI) | payer MEDICARE, SELFPAY ==
[2022-10-04 08:54] LABS: Anion Gap 5 (5-15); BUN 18 mg/dL (7-18); BUN/Creat Ratio 27.8 RATIO (10-20); Calcium,Total 9.9 mg/dL (8.5-10.1); Chloride 102 mmol/L (98-107); Creatinine, Serum 0.65 mg/dL (0.55-1.02); EST Glomerular Filtration Rate 95 mL/min (>60); Est Glom Filt Rate - Afr Amer 115 mL/min (>60); Glucose 108 mg/dL (74-106); Magnesium 2.1 mg/dL (1.6-2.6); Sodium Level 139 mmol/L (136-145)
== END | disposition home or self-care (01) ==
LOC: LAB 07:43
PROVIDERS: PCP Internal Medicine; Referring Provider Internal Medicine Endocrinology, Diabetes & Metabolism; Visit Provider Internal Medicine Endocrinology, Diabetes & Metabolism
DX: E21.1 Secondary hyperparathyroidism, not elsewhere classified (principal)
CPT/HCPCS: 36415; 80048; 83735

== ENCOUNTER → 2022-10-13 | Outpatient (CLI) | payer MEDICARE, SELFPAY ==
[2022-10-13 09:42] LABS: Absolute Neutrophil Count 3.8 X10^3/uL (2.0-7.7); Basophil# 0.02 X10^3/uL; Basophil% 0.3 % (0-1); Eosinophil# 0.21 X10^3/uL; Eosinophils% 3.6 % (0-5); Hematocrit 42.7 % (37-47); Hemoglobin 14.5 g/dL (12.0-15.0); Lymphocyte % 20.6 % (19-41); Mean Corpuscular Hgb 32.1 pg (27.0-32.0); Mean Corpuscular Volume 94.5 fL (81-99); Mean Platelet Vol. 9.6 fl (6.2-12.0); Monocyte# 0.55 X10^3/uL; Monocyte% 9.4 % (0-10); NRBC Flagged by Analyzer 0 % (0-5); Neutrophil # 3.84 X10^3/uL (2.7-7.7); Neutrophil % 65.9 % (47-70); Platelet Count 275 K/mm3 (150-450); RBC Distribution Width CV 12.9 % (11.6-14.6); RBC Distribution Width SD 44.8 fl (35.1-43.9); Red Blood Count 4.52 M/mm3 (4.2-5.4); White Blood Count 5.8 K/mm3 (4.4-11.0)
[2022-10-13 09:56] LABS: ALB/GLOB Ratio 1.2 RATIO (0.9-2.4); AST(SGOT) 18 U/L (15-37); Alanine Aminotransfer ALT/SGPT 25 U/L (13-56); Alkaline Phosphatase 51 U/L (45-117); Anion Gap 5 (5-15); BUN 21 mg/dL (7-18); BUN/Creat Ratio 31.8 RATIO (10-20); Chloride 102 mmol/L (98-107); Cholesterol 171 mg/dL (200); Creatinine, Serum 0.66 mg/dL (0.55-1.02); EST Glomerular Filtration Rate 93 mL/min (>60); Est Glom Filt Rate - Afr Amer 112 mL/min (>60); Globulin 3.2 g/dL (2.2-4.2); Glucose 112 mg/dL (74-106); High Density Lipoprotein 53 mg/dL; Potassium 3.8 mmol/L (3.5-5.1); Protein, Total 7.2 g/dL (6.4-8.2); Sodium Level 139 mmol/L (136-145); Triglycerides 141 mg/dL; Very Low Density Lipoprotein 28 mg/dL (5-40)
[2022-10-13 10:01] LABS: Hemoglobin A1c 5.3 % (3.8-5.6)
[2022-10-15 08:32] LABS: Vitamin D,25 Hydroxy 75.9 ng/mL
== END | disposition home or self-care (01) ==
LOC: LAB 08:55
PROVIDERS: PCP Internal Medicine; Visit Provider Internal Medicine
DX: E78.5 Hyperlipidemia, unspecified (principal); R73.03 Prediabetes; E83.52 Hypercalcemia
CPT/HCPCS: 36415; 80053; 80061; 82306; 83036; 85025

== ENCOUNTER → 2022-11-13 | Outpatient (CLI) | payer MEDICARE, SELFPAY ==
--- NOTE | 2022-11-13 09:20 | RAD_ITS ---
INDICATION: KUB- STONES EXAMINATION/TECHNIQUE: X-RAY - XR Abdomen 1 View COMPARISON: CT of the abdomen and pelvis dated August 22, 2021 FINDINGS: BOWEL GAS PATTERN: Non-obstructive. No bowel or stomach distention. FREE AIR: Not assessed on a single supine view. CALCIFICATIONS: Bowel gas obscures anatomic detail of the right kidney. There are faint calcific densities measuring up to 4.2 mm within the expected region of the lower pole the left kidney. LOWER CHEST: No acute pathology. BONES AND SOFT TISSUES: There are degenerative changes of the lumbar spine. There are degenerative changes of the hips and pubic symphysis as well. RAD/Abdomen Single View IMPRESSION: Indeterminate calcific densities within the expected region of the left kidney measuring up to 4.2 mm, may be secondary to vascular calcifications and/or renal calculi. Electronically Signed: Aurelia Faust MD at 10:53 EDT ,
== END | disposition home or self-care (01) ==
LOC: MTRAD 09:17
PROVIDERS: PCP Internal Medicine; Referring Provider Urology; Visit Provider Urology
DX: N20.0 Calculus of kidney (principal)
CPT/HCPCS: 74018

== ENCOUNTER → 2022-11-15 | Outpatient (CLI) | payer MEDICARE, SELFPAY ==
--- NOTE | 2022-11-15 12:57 | BI_ITS ---
MAMMOGRAPHY - BILATERAL SCREENING REASON FOR EXAM: Female, 77 years old. Routine annual screening examination. PERTINENT HISTORY: Daughter with breast cancer. History of prior bilateral excisional breast biopsies. TECHNIQUE: Digital bilateral breast junaid (3D mammographic acquisition) in the CC and MLO projections. 2-D mediolateral oblique (MLO) and craniocaudad (CC) views of both breasts were obtained. CAD: Full Field Digital Mammography with Computer Added Detection was performed. COMPARISON: Comparison is made with prior examination November 14, 2021 and October 27, 2020. FINDINGS: Breast Composition: The breasts are heterogeneously dense, which may obscure small masses. There are no dominant masses or suspicious calcifications. Stable benign-appearing bilateral axillary lymph nodes. No other significant abnormalities are identified. There has been no significant change since the prior study. BI/SCRN MAMM (CAD)W/JUNAID BILAT IMPRESSION: Stable bilateral screening mammogram. Yearly follow-up mammogram recommended. (A) ASSESSMENT CATEGORY: BIRADS Category 2: Benign. A letter regarding these results will be sent to the patient by the facility within 30 days. Approximately 10% of breast cancers are not detected by mammography. A normal mammogram should not delay biopsy of a clinically suspicious abnormality. [id number] Electronically Signed: Corey Rodriguez MD at 15:20 EDT ,
== END | disposition home or self-care (01) ==
LOC: OPBI 12:55
PROVIDERS: PCP Internal Medicine; Visit Provider Internal Medicine
DX: Z12.31 Encounter for screening mammogram for malignant neoplasm of breast (principal); Z80.3 Family history of malignant neoplasm of breast
CPT/HCPCS: 77063; 77067

== ENCOUNTER → 2023-02-02 | Outpatient (CLI) | payer MEDICARE, SELFPAY ==
[2023-02-02 10:16] LABS: AST(SGOT) 14 U/L (15-37); Alanine Aminotransfer ALT/SGPT 33 U/L (13-56); Albumin, Serum 3.5 g/dL (3.2-5.0); Alkaline Phosphatase 59 U/L (45-117); Anion Gap 5 (5-15); BUN 23 mg/dL (7-18); BUN/Creat Ratio 31.3 RATIO (10-20); Calcium,Total 10.1 mg/dL (8.5-10.1); Chloride 103 mmol/L (98-107); Creatinine, Serum 0.74 mg/dL (0.55-1.02); EST Glomerular Filtration Rate 82 mL/min (>60); Est Glom Filt Rate - Afr Amer 99 mL/min (>60); Globulin 3.5 g/dL (2.2-4.2); Glucose 101 mg/dL (74-106); Magnesium 2.2 mg/dL (1.6-2.6); Potassium 3.3 mmol/L (3.5-5.1); Sodium Level 139 mmol/L (136-145)
[2023-02-04 07:39] LABS: PTHIN 42.4 pg/mL (18.4-80.1)
[2023-02-04 07:42] LABS: Vitamin D,25 Hydroxy 62.1 ng/mL
== END | disposition home or self-care (01) ==
LOC: LAB 09:32
PROVIDERS: PCP Internal Medicine; Referring Provider Internal Medicine Endocrinology, Diabetes & Metabolism; Visit Provider Internal Medicine Endocrinology, Diabetes & Metabolism
DX: E21.1 Secondary hyperparathyroidism, not elsewhere classified (principal); E55.9 Vitamin D deficiency, unspecified; M81.0 Age-related osteoporosis without current pathological fracture
CPT/HCPCS: 36415; 80053; 82306; 83735; 83970

== ENCOUNTER 2023-04-11 10:30 | Outpatient (RCR) | payer MEDICARE, SELFPAY ==
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
--- NOTE | 2023-04-11 10:49 | HP.PTDCSUM ---
Discharge Summary D/C summary: It has been my pleasure to treat JS MEEKS referred by Dr. Audrey Austin DO, with the diagnosis of CERVICAL RADICULOAPTHY AND LUMBAR RADICULOPATHY for a total of 9 visit(s). Discharge Date: 04/11/23 Please see the following information for a summary of their discharge status. Subjective Subjective: Doing better ready for d/c ..WALKING IS IMPROVING Overall Improvement % Improvement: 76 Objective Objective/Function: Objective: POSTURE: mild thoracic kyphosis GAIT: reciprocal pattern NEURO: denies paresthesia/tingling ,reflexes L3-4,L4-5,;L5-S1 3/3 PALPTION: tender UT/levator CERVICAL ROM: flexion min loss, lateral flexion ,rotation ,extension mod loss LUMBAR ROM: flexion min loss ,extension mod loss ,side glides min loss MMT: quads/hams 4/5 (peak force) hip flexion 18.3 ,right 21.9 ,ankle 4/5 BUE 4/5 grossly 4-5/ shoulder Goals Goal 1:: I with HEP for cervical and lumbar Goal Progress: Goal Met Goal 2:: Patient to demonstrate 50% improvement with decrease pain and improved function Goal Progress: Goal Met Goal 3:: Patient to improve cervical ROM for function of recovery for dricing Goal Progress: Goal Met Goal 4:: Patient improve strength of hips to 5-10# peak force to improve function Goal Progress: Goal Met Goal 5:: Patient to improve back oswestry score by 5 points to improve QOL and function Goal Progress: Goal Met Plan Plan: D/C D/C Information d/c sentence: If there are questions or concerns regarding this patient's physical therapy, please feel free to call me at [phone]. Thank you for the referral of this patient. Sincerely, Jossue Flores, PT, Cert MDT, OCS Balance/Gait/Functional tests Balance/Special Test Scores Oswestry Low Back Score: 4 Improvement % Improvement: 76
== END 2023-04-11 12:27 | disposition home or self-care (01) ==
LOC: PT 10:30
PROVIDERS: PCP Internal Medicine; Referring Provider Internal Medicine; Visit Provider Internal Medicine
DX: M54.12 Radiculopathy, cervical region (principal); M54.16 Radiculopathy, lumbar region
CPT/HCPCS: 97110; 97162; 97530

== ENCOUNTER → 2023-04-18 | Outpatient (CLI) | payer MEDICARE, SELFPAY ==
[2023-04-18 10:11] LABS: Red Blood Cells-Urine 0 SEEN /hpf (0-5)
[2023-04-18 11:13] LABS: Color, Urine Yellow (Yellow); Glucose, Dipstick Normal (Normal); Ketone-Dipstick Negative (Negative); Leukocyte Esterase-Dipstick 500 /ul (Negative); Nitrite-Dipstick Negative (Negative); Occult Blood-Urine 25 /ul (Negative); Protein-Dipstick 30 mg/dl (Negative); Urine Clarity Clear (Clear); Urine Urobilinogen Normal (Normal)
[2023-04-18 11:15] LABS: Absolute Lymphocyte Count 1.16 X10^3/uL (0.83-4.51); Absolute Neutrophil Count 3.2 X10^3/uL (2.0-7.7); Basophil# 0.02 X10^3/uL; Basophil% 0.4 % (0-1); Eosinophil# 0.22 X10^3/uL; Eosinophils% 4.3 % (0-5); Hematocrit 44.7 % (37-47); Hemoglobin 14.9 g/dL (12.0-15.0); Lymphocyte # 1.16 X10^3/ul (0.83-4.51); Lymphocyte % 22.6 % (19-41); Mean Corp Hgb Conc 33.3 g/dL (32-36); Mean Corpuscular Hgb 31.4 pg (27.0-32.0); Mean Corpuscular Volume 94.1 fL (81-99); Mean Platelet Vol. 10.3 fl (6.2-12.0); Monocyte# 0.57 X10^3/uL; Monocyte% 11.1 % (0-10); NRBC Flagged by Analyzer 0 % (0-5); Neutrophil # 3.15 X10^3/uL (2.7-7.7); Neutrophil % 61.4 % (47-70); Platelet Count 274 K/mm3 (150-450); RBC Distribution Width CV 12.6 % (11.6-14.6); RBC Distribution Width SD 43.6 fl (35.1-43.9); Red Blood Count 4.75 M/mm3 (4.2-5.4); White Blood Count 5.1 K/mm3 (4.4-11.0)
[2023-04-18 11:19] LABS: Urine Bilirubin Dipstick 1 mg/dL (Negative)
[2023-04-18 11:32] LABS: Bacteria RARE /hpf (None Seen); Mucous, Urine 1+ /hpf (<or=2+); Squamous Epithelial Cells - UA 0-5 SEEN /hpf (5-10); White Blood Cells 0-5 SEEN /hpf (0-5)
[2023-04-18 11:38] LABS: PTHIN 72.7 pg/mL (18.4-80.1)
[2023-04-18 11:44] LABS: Vitamin D,25 Hydroxy 60.8 ng/mL
[2023-04-18 11:46] LABS: Hemoglobin A1c 5.4 % (3.8-5.6)
[2023-04-18 11:47] LABS: ALB/GLOB Ratio 1.1 RATIO (0.9-2.4); AST(SGOT) 13 U/L (15-37); Alanine Aminotransfer ALT/SGPT 26 U/L (13-56); Albumin, Serum 3.9 g/dL (3.2-5.0); Alkaline Phosphatase 59 U/L (45-117); Anion Gap 4 (5-15); BUN 20 mg/dL (7-18); BUN/Creat Ratio 33.6 RATIO (10-20); Calcium,Total 9.6 mg/dL (8.5-10.1); Chloride 104 mmol/L (98-107); Cholesterol 157 mg/dL (200); EST Glomerular Filtration Rate 104 mL/min (>60); Est Glom Filt Rate - Afr Amer 126 mL/min (>60); Globulin 3.4 g/dL (2.2-4.2); Glucose 106 mg/dL (74-106); High Density Lipoprotein 52 mg/dL; Magnesium 2.2 mg/dL (1.6-2.6); Potassium 3.5 mmol/L (3.5-5.1); Protein, Total 7.3 g/dL (6.4-8.2); Sodium Level 139 mmol/L (136-145); Thyroid Stim Hormone (TSH) 0.67 uIU/mL (0.358-3.74); Triglycerides 81 mg/dL; Very Low Density Lipoprotein 16 mg/dL (5-40)
== END | disposition home or self-care (01) ==
LOC: LAB 10:02
PROVIDERS: PCP Internal Medicine; Referring Provider Internal Medicine Endocrinology, Diabetes & Metabolism; Visit Provider Internal Medicine Endocrinology, Diabetes & Metabolism
DX: R73.09 Other abnormal glucose (principal); E21.1 Secondary hyperparathyroidism, not elsewhere classified; E78.49 Other hyperlipidemia; D51.8 Other vitamin B12 deficiency anemias
CPT/HCPCS: 36415; 80053; 80061; 81001; 82306; 83036; 83735; 83970; 84443; 85025

== ENCOUNTER → 2023-05-28 | Outpatient (CLI) | payer MEDICARE, SELFPAY ==
[2023-05-28 10:51] LABS: Absolute Lymphocyte Count 1.09 X10^3/uL (0.83-4.51); Absolute Neutrophil Count 3.7 X10^3/uL (2.0-7.7); Basophil# 0.04 X10^3/uL; Basophil% 0.7 % (0-1); Eosinophil# 0.34 X10^3/uL; Eosinophils% 5.9 % (0-5); Hemoglobin 14.5 g/dL (12.0-15.0); Lymphocyte # 1.09 X10^3/ul (0.83-4.51); Lymphocyte % 18.9 % (19-41); Mean Corpuscular Hgb 31.7 pg (27.0-32.0); Mean Corpuscular Volume 96.3 fL (81-99); Mean Platelet Vol. 9.4 fl (6.2-12.0); Monocyte# 0.53 X10^3/uL; Monocyte% 9.2 % (0-10); NRBC Flagged by Analyzer 0 % (0-5); Neutrophil # 3.74 X10^3/uL (2.7-7.7); Neutrophil % 64.8 % (47-70); Platelet Count 265 K/mm3 (150-450); RBC Distribution Width CV 13.1 % (11.6-14.6); Red Blood Count 4.57 M/mm3 (4.2-5.4); White Blood Count 5.8 K/mm3 (4.4-11.0)
[2023-05-31 17:07] LABS: Aspirgillus flavus Negative (Neg:<1:1); Aspirgillus fumigatus Negative (Neg:<1:1); Aspirgillus niger Negative (Neg:<1:1); Immunoglobulin E 35 IU/mL (6-495)
[2023-05-31 21:07] LABS: Alternaria alternata <0.10 kU/L (Class 0); Aspergillus fumigatus <0.10 kU/L (Class 0); Bahia Grass <0.10 kU/L (Class 0); Bermuda Grass <0.10 kU/L (Class 0); Bluegrass, Kentucky <0.10 kU/L (Class 0); Cat Hair/Dander, Standard <0.10 kU/L (Class 0); Cedar, Mountain <0.10 kU/L (Class 0); Cladosporium herbarum <0.10 kU/L (Class 0); Cockroach, American <0.10 kU/L (Class 0); D farinae Mite <0.10 kU/L (Class 0); D pteronyssinus <0.10 kU/L (Class 0); Dog Epithelia <0.10 kU/L (Class 0); Elm, American White <0.10 kU/L (Class 0); Hazelnut Tree <0.10 kU/L (Class 0); Hickory, White <0.10 kU/L (Class 0); Johnson Grass <0.10 kU/L (Class 0); Maple/Box Elder <0.10 kU/L (Class 0); Mucor racemosus <0.10 kU/L (Class 0); Mugwort <0.10 kU/L (Class 0); Mulberry, White <0.10 kU/L (Class 0); Nettle <0.10 kU/L (Class 0); Oak, White <0.10 kU/L (Class 0); Penicillium chrysogen <0.10 kU/L (Class 0); Pigweed, Rough <0.10 kU/L (Class 0); Plantain, English <0.10 kU/L (Class 0); Ragweed, Short/Common <0.10 kU/L (Class 0); Sheep Sorrel(Dock) <0.10 kU/L (Class 0); Stemphylium herbarum <0.10 kU/L (Class 0); Sweet Gum <0.10 kU/L (Class 0); Sycamore, American <0.10 kU/L (Class 0)
== END | disposition home or self-care (01) ==
PROVIDERS: PCP Internal Medicine; Referring Provider Internal Medicine Critical Care Medicine; Visit Provider Internal Medicine Critical Care Medicine
DX: J45.909 Unspecified asthma, uncomplicated (principal)
CPT/HCPCS: 36415; 82785; 85025; 86003; 86606

== ENCOUNTER → 2023-09-03 | Outpatient (CLI) | payer MEDICARE, SELFPAY ==
[2023-09-03 10:01] LABS: Absolute Lymphocyte Count 1.25 X10^3/uL (0.83-4.51); Absolute Neutrophil Count 2.8 X10^3/uL (2.0-7.7); Basophil# 0.01 X10^3/uL; Basophil% 0.2 % (0-1); Eosinophil# 0.15 X10^3/uL; Eosinophils% 3.2 % (0-5); Hematocrit 43.1 % (37-47); Hemoglobin 14.3 g/dL (12.0-15.0); Lymphocyte # 1.25 X10^3/ul (0.83-4.51); Mean Corp Hgb Conc 33.2 g/dL (32-36); Mean Corpuscular Hgb 31.4 pg (27.0-32.0); Mean Corpuscular Volume 94.5 fL (81-99); Mean Platelet Vol. 9.5 fl (6.2-12.0); Monocyte# 0.46 X10^3/uL; Monocyte% 9.9 % (0-10); NRBC Flagged by Analyzer 0 % (0-5); Neutrophil # 2.75 X10^3/uL (2.7-7.7); Neutrophil % 59.5 % (47-70); Platelet Count 256 K/mm3 (150-450); RBC Distribution Width CV 12.4 % (11.6-14.6); RBC Distribution Width SD 42.9 fl (35.1-43.9); Red Blood Count 4.56 M/mm3 (4.2-5.4); White Blood Count 4.6 K/mm3 (4.4-11.0)
== END | disposition home or self-care (01) ==
LOC: PAVLAB 09:44
PROVIDERS: PCP Internal Medicine; Visit Provider Nurse Practitioner Acute Care
DX: J45.50 Severe persistent asthma, uncomplicated (principal)
CPT/HCPCS: 36415; 85025

== ENCOUNTER 2023-10-08 12:15 | Outpatient (CLI) | payer MEDICARE, SELFPAY ==
[2023-10-08 12:29] VITALS: BP 110/55; PULSE 65; RESP 16; TEMP 36.6; O2SAT 95; BMI 27.9
[2023-10-08] MEDS: Benralizumab 30 MG/ML Syringe SC (12:43)
[2023-10-08 13:53] VITALS: BP 104/52; PULSE 65; RESP 16; TEMP 36.8; O2SAT 93
== END 2023-10-08 12:16 | disposition home or self-care (01) ==
PROVIDERS: PCP Internal Medicine; Referring Provider Nurse Practitioner Acute Care; Visit Provider Nurse Practitioner Acute Care
DX: J45.50 Severe persistent asthma, uncomplicated (principal)
CPT/HCPCS: 96372; J0517

== ENCOUNTER → 2023-10-23 | Outpatient (CLI) | payer MEDICARE, SELFPAY ==
[2023-10-23 08:08] LABS: PTHIN 59.4 pg/mL (18.4-80.1)
[2023-10-23 08:12] LABS: Vitamin D,25 Hydroxy 79.5 ng/mL
[2023-10-23 08:35] LABS: ALB/GLOB Ratio 1.3 RATIO (0.9-2.4); AST(SGOT) 17 U/L (15-37); Alanine Aminotransfer ALT/SGPT 32 U/L (13-56); Alkaline Phosphatase 48 U/L (45-117); Anion Gap 7 (5-15); BUN 14 mg/dL (7-18); BUN/Creat Ratio 19.1 RATIO (10-20); Calcium,Total 9.9 mg/dL (8.5-10.1); Chloride 105 mmol/L (98-107); Creatinine, Serum 0.73 mg/dL (0.55-1.02); EST Glomerular Filtration Rate 82 mL/min (>60); Est Glom Filt Rate - Afr Amer 99 mL/min (>60); Globulin 3.1 g/dL (2.2-4.2); Glucose 113 mg/dL (74-106); Magnesium 2.2 mg/dL (1.6-2.6); Potassium 3.4 mmol/L (3.5-5.1); Protein, Total 7.1 g/dL (6.4-8.2); Sodium Level 142 mmol/L (136-145); Thyroid Stim Hormone (TSH) 0.56 uIU/mL (0.358-3.74)
== END | disposition home or self-care (01) ==
LOC: LAB 07:14
PROVIDERS: PCP Internal Medicine; Referring Provider Internal Medicine Endocrinology, Diabetes & Metabolism; Visit Provider Internal Medicine Endocrinology, Diabetes & Metabolism
DX: M81.0 Age-related osteoporosis without current pathological fracture (principal); E21.1 Secondary hyperparathyroidism, not elsewhere classified; E04.9 Nontoxic goiter, unspecified; E55.9 Vitamin D deficiency, unspecified; E83.42 Hypomagnesemia
CPT/HCPCS: 36415; 80053; 82306; 83735; 83970; 84443

== ENCOUNTER 2023-11-05 09:14 | Outpatient (CLI) | payer MEDICARE, SELFPAY ==
[2023-11-05 09:39] VITALS: BP 123/54; PULSE 62; RESP 16; TEMP 36.3; O2SAT 95; BMI 27.5
[2023-11-05 10:01] LABS: Anion Gap 6 (5-15); BUN 18 mg/dL (7-18); BUN/Creat Ratio 26.1 RATIO (10-20); Calcium,Total 9.9 mg/dL (8.5-10.1); Chloride 106 mmol/L (98-107); Creatinine, Serum 0.69 mg/dL (0.55-1.02); EST Glomerular Filtration Rate 88 mL/min (>60); Est Glom Filt Rate - Afr Amer 106 mL/min (>60); Estimated Creatinine Clearance 49.16 ml/min; Glucose 111 mg/dL (74-106); Potassium 4.1 mmol/L (3.5-5.1); Sodium Level 141 mmol/L (136-145)
[2023-11-05] MEDS: Benralizumab 30 MG/ML Syringe SC (10:02)
== END 2023-11-05 09:15 | disposition home or self-care (01) ==
LOC: MEDOUTP 09:14
PROVIDERS: Physician Assistant; PCP Internal Medicine; Referring Provider Nurse Practitioner Acute Care; Visit Provider Nurse Practitioner Acute Care
DX: J45.50 Severe persistent asthma, uncomplicated (principal)
CPT/HCPCS: 36415; 80048; 96372; J0517

== ENCOUNTER 2023-12-03 09:25 | Outpatient (CLI) | payer MEDICARE, SELFPAY ==
[2023-12-03 09:46] VITALS: BP 115/62; PULSE 58; RESP 16; TEMP 36; O2SAT 95; BMI 27.3
[2023-12-03] MEDS: Benralizumab 30 MG/ML Syringe SC (09:50)
== END 2023-12-03 09:26 | disposition home or self-care (01) ==
LOC: MEDOUTP 09:25
PROVIDERS: PCP Internal Medicine; Referring Provider Nurse Practitioner Acute Care; Visit Provider Nurse Practitioner Acute Care
DX: J45.50 Severe persistent asthma, uncomplicated (principal)
CPT/HCPCS: 96372; J0517

== ENCOUNTER 2023-12-31 09:20 | Outpatient (CLI) | payer MEDICARE, SELFPAY ==
[2023-12-31 09:28] VITALS: BP 133/63; PULSE 62; RESP 16; TEMP 35.8; O2SAT 95; BMI 27.9
[2023-12-31] MEDS: Benralizumab 30 MG/ML Syringe SC (09:31)
== END 2023-12-31 23:59 | disposition home or self-care (01) ==
LOC: MEDOUTP 09:20
PROVIDERS: PCP Internal Medicine; Referring Provider Nurse Practitioner Acute Care; Visit Provider Nurse Practitioner Acute Care
DX: J45.50 Severe persistent asthma, uncomplicated (principal)
CPT/HCPCS: 96372; J0517

== ENCOUNTER → 2024-02-12 | Outpatient (CLI) | payer MEDICARE, SELFPAY ==
--- NOTE | 2024-02-12 06:42 | ECHOD_ITS ---
Reason For Study: SHORTNESS OF BREATH Procedure This was a 2D Doppler, Color Flow transthoracic echocardiogram. Exam performed in department. Left Ventricle Normal LV size. Left ventricular systolic function is normal. The left ventricular ejection fraction is 60 %. Stage 1 diastolic dysfunction. No regional wall motion abnormalities noted. Right Ventricle Normal RV size. Normal systolic function. Atria Normal left atrium. Normal right atrium. Mitral Valve Normal mitral valve. Mild (1+) eccentric mitral valve insufficiency. Tricuspid Valve Normal tricuspid valve. Mild (1+) tricuspid valve insufficiency. Pulmonary artery systolic pressure is 24 mmHg. Aortic Valve Trisinus/trileaflet aortic valve. Pulmonic Valve Normal pulmonic valve. Great Vessels Normal aortic root. The pulmonary artery is normal size. Normal inferior vena cava. Pericardium/Pleural No pericardial effusion. MMode/2D Measurements & Calculations LVIDd: 4.3 cm IVSd: 0.95 cm LVOT diam: 1.9 cm LVIDs: 2.7 cm LVPWd: 0.94 cm LVOT area: 2.9 cm2 RVDd: 3.4 cm FS: 36.7 % Ao root diam: 2.8 cm LAV(MOD-bp): 29.0 ml LVAd ap4: 18.9 cm2 LAV(MOD-bp) Indexed: 18.0 ml/m2 LVLd ap4: 6.6 cm LAV(MOD-sp2): 31.2 ml EDV(MOD-sp4): 44.5 ml LAV(MOD-sp4): 26.3 ml EDV(sp4-el): 45.6 ml LVAs ap4: 11.4 cm2 LVLs ap4: 6.1 cm ESV(MOD-sp4): 18.4 ml ESV(sp4-el): 18.3 ml EF(MOD-sp4): 58.7 % EF(sp4-el): 59.9 % LVAd ap2: 18.5 cm2 SV(MOD-sp4): 26.1 ml SV(MOD-sp2): 28.2 ml LVLd ap2: 6.6 cm EDV(MOD-sp2): 42.7 ml EDV(sp2-el): 43.9 ml LVAs ap2: 9.8 cm2 LVLs ap2: 5.5 cm ESV(MOD-sp2): 14.5 ml ESV(sp2-el): 14.8 ml EF(MOD-sp2): 66.1 % SV(sp4-el): 27.3 ml LA dimension(2D): 3.5 cm LA A4 area: 11.6 cm2 RA A4 area: 10.3 cm2 TAPSE: 1.8 cm Time Measurements MV dec time: 0.32 sec Doppler Measurements & Calculations MV E max connor: 47.9 cm/sec Lat Peak E' Connor: 9.5 cm/sec Med Peak E' Connor: 7.7 cm/sec MV A max connor: 65.8 cm/sec E/E' lat: 5.0 E/E' med: 6.2 MV E/A: 0.73 Ao V2 max: 117.1 cm/sec LV V1 max: 92.2 cm/sec MV dec slope: 151.9 cm/sec2 Ao max P.5 mmHg LV V1 max P.4 mmHg Ao V2 mean: 81.7 cm/sec LV V1 mean P.7 mmHg Ao mean P.0 mmHg LV V1 mean: 60.8 cm/sec Ao V2 VTI: 29.8 cm LV V1 VTI: 20.8 cm AV (velocity ratio): 0.70 RED(I,D): 2.0 cm2 RED(V,D): 2.3 cm2 SV(LVOT): 60.3 ml PA V2 max: 80.7 cm/sec TR max connor: 225.0 cm/sec PA max PG (full): 1.0 mmHg TR max P.3 mmHg ECHO/Echo Complete Interpretation Summary Normal LV size. Left ventricular systolic function is normal. Mild (1+) eccentric mitral valve insufficiency. Mild (1+) tricuspid valve insufficiency. The left ventricular ejection fraction is 60 %. Stage 1 diastolic dysfunction. Ordering Physician: Audrey Austin Referring Physician: Audrey Austin Performed By: Nicole Jacques RDCS
--- NOTE | 2024-02-12 12:35 | STRESSREP ---
Stress Test Report Exercise myocardial perfusion stress test. 78-year-old lady with a history of shortness of breath Stress protocol: Resting EKG demonstrates sinus bradycardia with a rate of 55 bpm resting blood pressure is 120/72 mmHg. The patient exercised according to the regular Markus protocol for a total duration of 7 minutes attaining a maximum heart rate of 127 bpm which was 88% of maximum predicted heart rate; the maximum workload was 10.1 metabolic equivalents. At rest there were no ST or T wave changes noted to suggest ischemia and at peak exercise upsloping ST changes only were noted which did not meet the criteria for ischemia. Premature atrial complexes were noted especially during recovery as well no clinical angina was noted the test was terminated due to the target heart rate being achieved/fatigue. The peak blood pressure was 142/62 mmHg. Rate-pressure product was 15,000. Myocardial perfusion protocol. 11.9 mCi of technetium 99m sestamibi was injected at rest. The patient exercised according to regular Markus protocol for total duration of 7 minutes and at peak exercise 34.1 mCi of technetium 99m sestamibi was injected stress images were obtained stress and rest images were reconstructed in comparing the short axis vertical long and horizontal long axis. Gated images were also obtained. Perfusion SPECT analysis: Review of the stress images demonstrate normal uptake of tracer noted in all areas of the myocardium. The resting images similarly demonstrate normal uptake of tracer noted in all areas of the myocardium. No areas of reversibility are noted to suggest ischemia no previous infarct was noted. Gated SPECT analysis: The gated ejection fraction is 75%. Conclusion: Normal exercise myocardial perfusion stress test at a high workload Preserved ejection fraction.
== END | disposition home or self-care (01) ==
LOC: CVS 06:41
PROVIDERS: PCP Internal Medicine; Referring Provider Internal Medicine; Visit Provider Internal Medicine
DX: R06.02 Shortness of breath (principal)
CPT/HCPCS: 78452; 93017; 93306; A9500; A4216

== ENCOUNTER → 2024-02-21 | Outpatient (CLI) | payer MEDICARE, SELFPAY | END | disposition home or self-care (01) | PROVIDERS: PCP Internal Medicine; Referring Provider Nurse Practitioner Acute Care; Visit Provider Nurse Practitioner Acute Care | DX: R06.02 Shortness of breath (principal) | CPT/HCPCS: 94060; 94726; 94729 ==

== ENCOUNTER → 2024-02-25 | Outpatient (CLI) | payer MEDICARE, SELFPAY ==
--- NOTE | 2024-02-25 06:34 | MRI_ITS ---
STUDY: MRI BRAIN WITH AND WITHOUT CONTRAST REASON FOR EXAM: Female, 78 years old. meningioma -- meningioma -- meningioma TECHNIQUE: Standardized multiplanar fat and water weighted pulse sequences were obtained. IV CONTRAST 12.5ML CLARISCAN was administered for the contrast portion of the examination. COMPARISON: None. FINDINGS: There is mild cerebral atrophy with widening of the extra-axial spaces and ventricular dilatation. There are a limited number of small white matter hyperintensities, distributed throughout the deep white matter tracts of the cerebral hemispheres, consistent with mild chronic white matter ischemic changes. There is no evidence for recent intracranial ischemia or other cause of cytotoxic edema on diffusion weighted imaging (DWI). Normal T2* images of the brain without demonstrated susceptibility artifact. There is no demonstrated hemosiderin stain. Normal bilateral basal ganglia. Normal thalami. There is no extra-axial fluid accumulation. Normal flow voids within the major intracranial circulation suggesting patency by spin echo criteria. Normal venous enhancement. There is no change in the 1 cm T1 isointense, T2 isointense, solidly enhancing dural-based mass in the anterior left parietal area consistent with a meningioma. Normal sella turcica, pituitary gland, infundibular stalk, optic chiasm and hypothalamus. Normal tectal plate and pineal gland. Normal midbrain, tommie and medulla. Normal cerebellum. Normal basal cisterns. Normal bilateral temporal bones. Normal bilateral internal auditory canals. There are bilateral ocular lens implants with otherwise normal intraorbital contents. Normal visualized paranasal sinuses. Normal calvarium and skull base. Normal visualized soft tissue structures. Normal visualized upper cervical spine. MRI/Brain W/WO Contrast IMPRESSION: 1. Involutional changes of the brain, as described above. 2. No change in 1 cm left parietal meningioma likely of no significance. Electronically Signed: Feliciano Louie MD at 9:34 EDT ,
[2024-02-25 07:07] LABS: CREATININE FINGERSTICK < 1.0 mg/dL (0.55-1.02); EGFR FINGERSTICK > 60.0000 mL/min (>60)
--- NOTE | 2024-02-25 07:59 | BI_ITS ---
MAMMOGRAPHY - BILATERAL SCREENING REASON FOR EXAM: Female, 78 years old. Routine annual screening examination. PERTINENT HISTORY: Daughter with breast cancer. History of prior bilateral excisional breast biopsies. TECHNIQUE: Digital bilateral breast junaid (3D mammographic acquisition) in the CC and MLO projections. 2-D mediolateral oblique (MLO) and craniocaudad (CC) views of both breasts were obtained. CAD: Full Field Digital Mammography with Computer Added Detection was performed. COMPARISON: Comparison is made with prior examination of November 15, 2022 and November 14, 2021. FINDINGS: Breast Composition: The breasts are heterogeneously dense, which may obscure small masses. There is a 4.4 mm x 6.3 mm well-defined nodule in the deep upper lateral aspect of the left breast. Correlation with ultrasound is recommended for further assessment. Stable calcified nodule in the upper lateral aspect of the right breast suggestive of calcifying fibroadenoma. Stable small benign-appearing bilateral axillary lymph nodes. No other significant abnormalities are identified. BI/SCRN MAMM (CAD)W/JUNAID BILAT IMPRESSION: 4.4 mm x 6.3 mm well-defined nodule in the deep upper lateral aspect of the left breast. Correlation with ultrasound is recommended. ASSESSMENT CATEGORY: BIRADS Category 0: Incomplete. Need additional imaging evaluation. A letter regarding these results will be sent to the patient by the facility within 30 days. Approximately 10% of breast cancers are not detected by mammography. A normal mammogram should not delay biopsy of a clinically suspicious abnormality. [id number] Electronically Signed: Corey Rodriguez MD at 9:26 EDT ,
--- NOTE | 2024-02-25 08:45 | RAD_ITS ---
STUDY: X-RAY - ESOPHAGUS (BARIUM SWALLOW) WITH FLUOROSCOPY REASON FOR EXAM: Female, 78 years old. DYSPHAGIA TECHNIQUE: 27 view(s) of the esophagus were obtained following swallowing of barium. FLUOROSCOPY TIME (if supplied): (33 seconds) minutes/seconds. 3.9 mGy. COMPARISON: None. FINDINGS: There is no demonstrated esophageal foreign body. There is no demonstrated stricture or mucosal abnormality. Normal gastroesophageal junction, without a demonstrated hiatal hernia. The patient ingested a 12 mm tablet of barium without difficulty. There is atherosclerotic calcification of the aortic arch with tortuosity of the descending aorta. Normal visualized pulmonary parenchyma. There are diffuse degenerative changes of the visualized thoracic spine. RAD/Esophagus Dual Contrast IMPRESSION: Normal plain film x-ray examination (barium swallow) of the esophagus. Electronically Signed: Corey Rodriguez MD at 9:22 EDT ,
== END | disposition home or self-care (01) ==
PROVIDERS: PCP Internal Medicine; Referring Provider Internal Medicine; Visit Provider Internal Medicine
DX: Z12.31 Encounter for screening mammogram for malignant neoplasm of breast (principal); Z80.3 Family history of malignant neoplasm of breast
CPT/HCPCS: 70553; 74221; 77063; 77067; A9575

== ENCOUNTER → 2024-02-27 | Outpatient (CLI) | payer MEDICARE, SELFPAY ==
[2024-02-27 08:15] VITALS: PULSE 61; PULSE 64; PULSE 77; PULSE 80; PULSE 94; PULSE 95; PULSE 97; O2SAT 93; O2SAT 94; O2SAT 96
--- NOTE | 2024-02-27 08:32 | US_ITS ---
STUDY: ULTRASOUND BREAST - LEFT REASON FOR EXAM: Female, 78 years old. Abnormal screening mammogram. TECHNIQUE: Axial and longitudinal images of the LEFT breast were performed with a high resolution ultrasound transducer. # OF IMAGES: 40 COMPARISON: Comparison is made with prior mammogram dated February 25, 2024 FINDINGS: LEFT Breast: The upper lateral aspect of the left breast was examined with ultrasound. There is a 1 cm x 0.6 cm x 0.3 cm benign-appearing lymph node at the 2:00 position breast at 1 cm from nipple. A similar appearing benign lymph node is seen at the 2:00 position breast at 8 cm from nipple. This measures 1.2 cm x 1 cm x 0.4 cm. US/Breast Limited Unilateral IMPRESSION: 2 small benign-appearing lymph nodes are seen in the upper-outer quadrant of the left breast as described. Routine mammographic follow-up recommended. ASSESSMENT CATEGORY: BIRADS Category 2: Benign. A letter regarding these results will be sent to the patient by the facility within 30 days. Electronically Signed: Corey Rodriguez MD at 15:12 EDT ,
--- NOTE | 2024-03-02 09:37 | PCM.PSN.6M ---
PSN 6 Minute Walk Test 6 Minute Walk Test 6 Minute Walk Test: 6 Minute Walk Test PSN:6-Minute Walk Test Start: 02/27/24 08:31 Freq: Status: Active Protocol: RESP.6MINW Document 02/27/24 08:15 [facility] (Rec: 02/27/24 08:36 [facility] [id number]) 6 Minute Walk Test Date Performed 02/27/24 Time Performed 08:15 Height 5 ft Weight: 142 lb Weight in Pounds 142.[address]: Neal Assistive device used: None Pre-test Oxygen Delivery Method Room Air Pulse Ox (%) 94 Pulse Rate (60-100 beats/min) 61 Dyspnea Devin Scale (0-10) 0.5 Exertion Devin Scale (6-20) 6 1st minute Oxygen Delivery Method Room Air Pulse Ox (%) 94 Pulse Rate (60-100 beats/min) 94 2nd minute Oxygen Delivery Method Room Air Pulse Ox (%) 93 Pulse Rate (60-100 beats/min) 97 3rd minute Oxygen Delivery Method Room Air Pulse Ox (%) 94 Pulse Rate (60-100 beats/min) 80 4th minute Oxygen Delivery Method Room Air Pulse Ox (%) 94 Pulse Rate (60-100 beats/min) 77 5th minute Oxygen Delivery Method Room Air Pulse Rate (60-100 beats/min) 94 Dyspnea Devin Scale (0-10) 83 6th minute Oxygen Delivery Method Room Air Pulse Rate (60-100 beats/min) 95 Dyspnea Devin Scale (0-10) 81 Exertion Devin Scale (6-20) 1 Number of Rests Taken 10 Post-test Oxygen Delivery Method Room Air Pulse Ox (%) 96 Pulse Rate (60-100 beats/min) 64 Full Laps Walked 20 Partial Lap, Number of Tiles Walked 0 Total Distance Walked (ft) 1180 Interpretation Interpretation: The patient ambulated 1180 feet over the course of 6 minutes beginning on room air without assistive devices. Pretesting oxygen saturation was noted to be 94% on room air. With ambulation, the margarito oxygen saturation was 93%. There was no significant exertional oxygen desaturation. Recommendations Recommendations: There is no indication for the use of supplemental oxygen at this time.
== END | disposition home or self-care (01) ==
PROVIDERS: PCP Internal Medicine; Referring Provider Nurse Practitioner Acute Care; Visit Provider Internal Medicine
DX: R06.02 Shortness of breath (principal); N64.89 Other specified disorders of breast
CPT/HCPCS: 76642; 94618

== ENCOUNTER → 2024-03-31 | Outpatient (CLI) | payer MEDICARE, SELFPAY ==
[2024-03-31 08:53] LABS: ALB/GLOB Ratio 1.2 RATIO (0.9-2.4); AST(SGOT) 20 U/L (15-37); Alanine Aminotransfer ALT/SGPT 27 U/L (13-56); Albumin, Serum 3.7 g/dL (3.2-5.0); Alkaline Phosphatase 57 U/L (45-117); Anion Gap 3 (5-15); BUN 19 mg/dL (7-18); Calcium,Total 10.1 mg/dL (8.5-10.1); Chloride 106 mmol/L (98-107); Creatinine, Serum 0.73 mg/dL (0.55-1.02); EST Glomerular Filtration Rate 82 mL/min (>60); Est Glom Filt Rate - Afr Amer 99 mL/min (>60); Globulin 3.2 g/dL (2.2-4.2); Glucose 108 mg/dL (74-106); Magnesium 2.3 mg/dL (1.6-2.6); Potassium 3.8 mmol/L (3.5-5.1); Protein, Total 6.9 g/dL (6.4-8.2); Sodium Level 140 mmol/L (136-145)
[2024-03-31 08:56] LABS: PTHIN 69.1 pg/mL (18.4-80.1)
== END | disposition home or self-care (01) ==
LOC: LAB 07:33
PROVIDERS: PCP Internal Medicine; Referring Provider Internal Medicine Endocrinology, Diabetes & Metabolism; Visit Provider Internal Medicine Endocrinology, Diabetes & Metabolism
DX: M81.0 Age-related osteoporosis without current pathological fracture (principal); E21.1 Secondary hyperparathyroidism, not elsewhere classified
CPT/HCPCS: 36415; 80053; 83735; 83970

== ENCOUNTER → 2024-08-15 | Outpatient (CLI) | payer MEDICARE, SELFPAY ==
[2024-08-15 09:22] LABS: Absolute Lymphocyte Count 1.17 X10^3/uL (0.83-4.51); Absolute Neutrophil Count 3.8 X10^3/uL (2.0-7.7); Basophil# 0.01 X10^3/uL; Basophil% 0.2 % (0-1); Eosinophil# 0.25 X10^3/uL; Eosinophils% 4.3 % (0-5); Hematocrit 41.3 % (37-47); Hemoglobin 13.9 g/dL (12.0-15.0); Lymphocyte # 1.17 X10^3/ul (0.83-4.51); Mean Corp Hgb Conc 33.7 g/dL (32-36); Mean Corpuscular Hgb 31.6 pg (27.0-32.0); Mean Corpuscular Volume 93.9 fL (81-99); Mean Platelet Vol. 9.6 fl (6.2-12.0); Monocyte# 0.63 X10^3/uL; Monocyte% 10.8 % (0-10); NRBC Flagged by Analyzer 0 % (0-5); Neutrophil # 3.78 X10^3/uL (2.7-7.7); Neutrophil % 64.4 % (47-70); Platelet Count 259 K/mm3 (150-450); RBC Distribution Width CV 12.5 % (11.6-14.6); RBC Distribution Width SD 43.2 fl (35.1-43.9); White Blood Count 5.9 K/mm3 (4.4-11.0)
[2024-08-15 09:53] LABS: ALB/GLOB Ratio 1.1 RATIO (0.9-2.4); AST(SGOT) 17 U/L (15-37); Alanine Aminotransfer ALT/SGPT 24 U/L (13-56); Albumin, Serum 3.8 g/dL (3.2-5.0); Alkaline Phosphatase 54 U/L (45-117); Anion Gap 3 (5-15); BUN 14 mg/dL (7-18); BUN/Creat Ratio 19.1 RATIO (10-20); Calcium,Total 9.6 mg/dL (8.5-10.1); Chloride 103 mmol/L (98-107); Cholesterol 174 mg/dL (200); Creatinine, Serum 0.73 mg/dL (0.55-1.02); EST Glomerular Filtration Rate 82 mL/min (>60); Est Glom Filt Rate - Afr Amer 99 mL/min (>60); Globulin 3.4 g/dL (2.2-4.2); Glucose 111 mg/dL (74-106); High Density Lipoprotein 57 mg/dL; Potassium 4.2 mmol/L (3.5-5.1); Protein, Total 7.2 g/dL (6.4-8.2); Sodium Level 137 mmol/L (136-145); Triglycerides 131 mg/dL; Very Low Density Lipoprotein 26 mg/dL (5-40)
[2024-08-15 09:58] LABS: Hemoglobin A1c 5.5 % (3.8-5.6)
[2024-08-15 10:16] LABS: Microalbumin,Random Urine 9.2 mg/L (NO RANGE EST.); Microalbumin:Creatinine Ratio 26.2 mg/g CRE (<30 mg/g CRE)
[2024-08-17 10:04] LABS: Vitamin B12 777 pg/mL (211-911)
== END | disposition home or self-care (01) ==
LOC: LAB 09:04
PROVIDERS: PCP Internal Medicine; Referring Provider Internal Medicine Endocrinology, Diabetes & Metabolism; Visit Provider Internal Medicine Endocrinology, Diabetes & Metabolism
DX: E78.5 Hyperlipidemia, unspecified (principal); D51.8 Other vitamin B12 deficiency anemias; E55.9 Vitamin D deficiency, unspecified; R73.09 Other abnormal glucose; M81.0 Age-related osteoporosis without current pathological fracture
CPT/HCPCS: 36415; 80053; 80061; 82043; 82306; 82570; 82607; 83036; 85025

== ENCOUNTER → 2024-10-12 | Outpatient (CLI) | payer MEDICARE, SELFPAY ==
[2024-10-12 09:33] LABS: ALB/GLOB Ratio 1.8 RATIO (0.9-2.4); AST(SGOT) 19 U/L (<=31); Alanine Aminotransfer ALT/SGPT 15 U/L (<=34); Albumin, Serum 4.3 g/dL (3.4-4.8); Alkaline Phosphatase 45 U/L (35-104); Anion Gap 9 (5-15); BUN 15 mg/dL (4-19); BUN/Creat Ratio 23.5 RATIO (10-20); Calcium 9.7 mg/dL (7.6-11.0); Carbon Dioxide 28.4 mmol/L (22.0-29.0); Chloride 104 mmol/L (96-108); Creatinine, Serum 0.63 mg/dL (0.70-1.20); EST Glomerular Filtration Rate 91 (>60); Globulin 2.4 g/dL (2.2-4.2); Glucose 102 mg/dL (70-99); Magnesium 2.1 mg/dL (1.5-2.2); Potassium 3.9 mmol/L (3.3-5.1); Protein, Total 6.7 g/dL (5.9-8.4); Sodium Level 141 mmol/L (133-145); Total Bilirubin 0.63 mg/dL (0.00-1.30); Vitamin D,25 Hydroxy 53.6 ng/mL (30-100)
[2024-10-12 09:56] LABS: PTHIN 65 pg/mL (11-61)
== END | disposition home or self-care (01) ==
LOC: LAB 08:04
PROVIDERS: PCP Internal Medicine; Referring Provider Internal Medicine Endocrinology, Diabetes & Metabolism; Visit Provider Internal Medicine Endocrinology, Diabetes & Metabolism
DX: E21.1 Secondary hyperparathyroidism, not elsewhere classified (principal); M81.0 Age-related osteoporosis without current pathological fracture; E83.42 Hypomagnesemia; E55.9 Vitamin D deficiency, unspecified
CPT/HCPCS: 36415; 80053; 82306; 83735; 83970

== ENCOUNTER → 2024-11-24 | Outpatient (CLI) | payer MEDICARE, SELFPAY ==
[2024-11-24 11:09] LABS: ALB/GLOB Ratio 1.8 RATIO (0.9-2.4); AST(SGOT) 20 U/L (<=31); Alanine Aminotransfer ALT/SGPT 19 U/L (<=34); Albumin, Serum 4.3 g/dL (3.4-4.8); Alkaline Phosphatase 52 U/L (35-104); Anion Gap 10 (5-15); BUN 14 mg/dL (4-19); Calcium,Total 10.1 mg/dL (7.6-11.0); Carbon Dioxide 28.3 mmol/L (21.0-32.0); Chloride 101 mmol/L (98-108); Cholesterol 153 mg/dL (<=200); Creatinine, Serum 0.64 mg/dL (0.70-1.20); EST Glomerular Filtration Rate 90 (>60); Globulin 2.4 g/dL (2.2-4.2); Glucose 108 mg/dL (70-99); High Density Lipoprotein 50 mg/dL; Low Density Lipoprotein Calc. 86 mg/dL; Potassium 3.9 mmol/L (3.3-5.1); Protein, Total 6.8 g/dL (5.9-8.4); Sodium Level 139 mmol/L (133-145); Total Bilirubin 0.66 mg/dL (0.00-1.30); Triglycerides 83 mg/dL; Very Low Density Lipoprotein 17 mg/dL (5-40); Vitamin D,25 Hydroxy 50.5 ng/mL (30-100); cholesterol:hdl ratio screen 3.04
[2024-11-24 11:26] LABS: Hemoglobin A1c 5.5 % (<=5.6)
== END | disposition home or self-care (01) ==
LOC: LAB 09:15
PROVIDERS: PCP Internal Medicine; Referring Provider Internal Medicine; Visit Provider Internal Medicine
DX: R73.09 Other abnormal glucose (principal); E78.5 Hyperlipidemia, unspecified; E55.9 Vitamin D deficiency, unspecified
CPT/HCPCS: 36415; 80053; 80061; 82306; 83036

== ENCOUNTER → 2024-12-29 | Outpatient (CLI) | payer MEDICARE, SELFPAY ==
--- NOTE | 2024-12-29 09:02 | RAD_ITS ---
PROCEDURE: ESOPHAGUS DUAL CONTRAST 12/29/2024 REASON FOR EXAM: DYSPHAGIA TECHNIQUE: The patient ingested barium. Multiple images of the esophagus were obtained. COMPARISON: None FINDINGS: No evidence of obstruction to the flow of barium. No evidence of gastroesophageal reflux. No mass lesion is seen. The patient ingested a 12 mm tablet the barium. There is transient holdup of the tablet at the gastroesophageal junction. RAD/Esophagus Dual Contrast IMPRESSION: Transient holdup of the 12 mm tablet the barium at the gastroesophageal junctio n. Reading Location: [place] [id number]
== END | disposition home or self-care (01) ==
LOC: RAD 09:02
PROVIDERS: PCP Internal Medicine; Referring Provider Internal Medicine Gastroenterology; Visit Provider Internal Medicine Gastroenterology
DX: R13.10 Dysphagia, unspecified (principal)
CPT/HCPCS: 74221

== ENCOUNTER → 2025-02-09 | Outpatient (CLI) | payer MEDICARE, SELFPAY ==
[2025-02-09 17:44] LABS: Anion Gap 10 (5-15); BUN 19 mg/dL (4-19); BUN/Creat Ratio 29.5 RATIO (10-20); Calcium,Total 10.1 mg/dL (7.6-11.0); Carbon Dioxide 27.6 mmol/L (21.0-32.0); Chloride 103 mmol/L (98-108); Glucose 89 mg/dL (70-99); Potassium 3.8 mmol/L (3.3-5.1)
== END | disposition home or self-care (01) ==
LOC: LAB 15:56
PROVIDERS: PCP Internal Medicine; Referring Provider Internal Medicine Endocrinology, Diabetes & Metabolism; Visit Provider Internal Medicine Endocrinology, Diabetes & Metabolism
DX: M81.0 Age-related osteoporosis without current pathological fracture (principal)
CPT/HCPCS: 36415; 80048

== ENCOUNTER → 2025-02-23 | Outpatient (CLI) | payer MEDICARE, SELFPAY ==
[2025-02-23 12:17] LABS: Free T3 3.4 pg/mL (2.18-3.98)
[2025-02-24 06:07] LABS: Alpha Antitrypsin Serum 100 mg/dL (101-187)
== END | disposition home or self-care (01) ==
LOC: LAB 11:01
PROVIDERS: PCP Internal Medicine; Referring Provider Nurse Practitioner Acute Care; Visit Provider Nurse Practitioner Acute Care
DX: R73.09 Other abnormal glucose (principal); E88.01 Alpha-1-antitrypsin deficiency; R79.89 Other specified abnormal findings of blood chemistry; E78.49 Other hyperlipidemia
CPT/HCPCS: 36415; 82103; 84443; 84481

== ENCOUNTER → 2025-03-01 | Outpatient (CLI) | payer MEDICARE, SELFPAY ==
--- NOTE | 2025-03-01 15:39 | BI_ITS ---
EXAM: SCRN MAMM (CAD)W/JUNAID BILAT DATE: 03/01/2025 CLINICAL HISTORY: F, Age 79 y/o , SCRN MAMM (CAD)W/JUNAID BILAT DUE AFTER 02/24/25 TECHNIQUE: SCRN MAMM (CAD)W/JUNAID BILAT COMPARISON: Prior exam(s) dated 02/25/2024, 11/15/2022, and 11/14/2021. FINDINGS: TISSUE DENSITY: The breasts are heterogeneously dense, which may obscure small masses. Bilateral Breast Mammographic Findings: No suspicious masses, suspicious clustered microcalcifications, architectural distortion or secondary signs of malignancy is identified in either breast. Stable nodular masslike densities are seen in both breasts. Benign vascular calcifications and round microcalcifications are seen in both breasts. Partially obscured stable isodense masses are seen in both breast. 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 This mass appears stable. Benign-appearing axillary lymph nodes are seen bilaterally. BI/SCRN MAMM (CAD)W/JUNAID BILAT IMPRESSION: Benign screening mammogram. OVERALL FINAL ASSESSMENT BI-RADS 2: BENIGN RECOMMENDATION: Routine annual follow-up in 1 Year A letter with findings and recommendations will be mailed to the patient. Reading Location: [id number]
== END | disposition home or self-care (01) ==
LOC: OPBI 15:38
PROVIDERS: PCP Internal Medicine; Referring Provider Internal Medicine; Visit Provider Internal Medicine
DX: Z12.31 Encounter for screening mammogram for malignant neoplasm of breast (principal)
CPT/HCPCS: 77063; 77067

== ENCOUNTER → 2025-03-23 | Outpatient (CLI) | payer MEDICARE, SELFPAY ==
[2025-03-23 11:39] VITALS: PULSE 80; PULSE 81; PULSE 82; PULSE 84; PULSE 85; PULSE 87; O2SAT 93; O2SAT 94
--- NOTE | 2025-04-01 13:19 | PCM.PSN.6M ---
PSN 6 Minute Walk Test 6 Minute Walk Test 6 Minute Walk Test: 6 Minute Walk Test PSN:6-Minute Walk Test Start: 03/23/25 11:39 Freq: Status: Discharge Protocol: RESP.6MINW Document 03/23/25 11:39 [facility] (Rec: 03/23/25 11:43 [facility] [id number]) 6 Minute Walk Test Date Performed 03/23/25 Time Performed 11:15 Height 5 ft Weight: 143 lb Weight in Pounds 143.[address]: Naima Urrutia NP Assistive device None used: Pre-test Oxygen Delivery Room Air Method Pulse Ox (%) 93 Pulse Rate (60-100 80 beats/min) Dyspnea Devin Scale ( 0 0-10) Exertion Devin Scale 6 (6-20) 1st minute Oxygen Delivery Room Air Method Pulse Ox (%) 93 Pulse Rate (60-100 82 beats/min) Dyspnea Devin Scale ( 0 0-10) Number of Rests 0 Taken 2nd minute Oxygen Delivery Room Air Method Pulse Ox (%) 93 Pulse Rate (60-100 85 beats/min) Dyspnea Devin Scale ( 0 0-10) Number of Rests 0 Taken 3rd minute Oxygen Delivery Room Air Method Pulse Ox (%) 94 Pulse Rate (60-100 84 beats/min) Dyspnea Devin Scale ( 0 0-10) Number of Rests 0 Taken 4th minute Oxygen Delivery Room Air Method Pulse Ox (%) 94 Pulse Rate (60-100 85 beats/min) Dyspnea Devin Scale ( 0 0-10) Number of Rests 0 Taken 5th minute Oxygen Delivery Room Air Method Pulse Ox (%) 94 Pulse Rate (60-100 87 beats/min) Dyspnea Devin Scale ( 0 0-10) Number of Rests 0 Taken 6th minute Oxygen Delivery Room Air Method Pulse Ox (%) 94 Pulse Rate (60-100 85 beats/min) Dyspnea Devin Scale ( 0 0-10) Number of Rests 0 Taken Post-test Oxygen Delivery Room Air Method Pulse Ox (%) 94 Pulse Rate (60-100 81 beats/min) Dyspnea Devin Scale ( 0 0-10) Exertion Devin Scale 6 (6-20) Full Laps Walked 18 Partial Lap, Number 13 of Tiles Walked Total Distance 1075 Walked (ft) Interpretation Interpretation: The patient ambulated 1075 feet over the course of 6 minutes beginning on room air without assistive devices. Pretesting oxygen saturation was noted to be 93% on room air. With ambulation, the margarito oxygen saturation was 93%. There was no significant exertional oxygen desaturation. Recommendations Recommendations: There is no indication for the use of supplemental oxygen at this time.
== END | disposition home or self-care (01) ==
LOC: PSN 11:11
PROVIDERS: PCP Internal Medicine; Referring Provider Nurse Practitioner Acute Care; Visit Provider Nurse Practitioner Acute Care
DX: R06.02 Shortness of breath (principal)
CPT/HCPCS: 94618

== ENCOUNTER → 2025-03-25 | Outpatient (CLI) | payer MEDICARE, SELFPAY | END | disposition home or self-care (01) | LOC: PSN 09:16 | PROVIDERS: PCP Internal Medicine; Referring Provider Nurse Practitioner Acute Care; Visit Provider Nurse Practitioner Acute Care | DX: R06.02 Shortness of breath (principal) | CPT/HCPCS: 94060; 94726; 94729 ==

== ENCOUNTER 2025-04-16 08:38 | Day surgery (SDC) | payer MEDICARE, SELFPAY ==
--- NOTE | 2025-04-15 14:08 | PAT.ANE_ITS ---
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 When Was Last Pacemaker Check QUESTION #4 FULL TEXT: You/Your Family Experience fever (hyperthermia) with Anesthesia Last Oral Intake Last Oral intake: Last Oral Intake NPO since Meds taken in AM with sips of water? Meds patient instructed to take am of surgery PONV PONV - ladle repairman: PONV - ladle repairman Female Yes 04/15/25 11:54 HX of Motion Sickness No 04/15/25 11:54 HX of N/V After Surgery No 04/15/25 11:54 Non-Smoker Yes 04/15/25 11:54 Duration of Surgery greater No 04/15/25 11:54 than 60 minutes Number of Risk Factors 2 04/15/25 11:54 PONV Score Moderate Risk 04/15/25 11:54 Height & Weight Height & Weight: Anesthesia: Height & Weight Height 5 ft 03/23/25 11:39 Respiratory Assessment Respiratory Assessment - ladle repairman: Respiratory Tract Infection Hx - ladle repairman Hx Respiratory Tract Infection No 04/15/25 11:54 STOP Sleep Apnea STOP Sleep Apnea - ladle repairman: STOP Sleep Apnea - ladle repairman Hx Hypertension No 04/15/25 11:54 Hx Sleep Apnea No 04/15/25 11:54 CPAP No 04/15/25 11:54 BIPAP No 04/15/25 11:54 Do you snore loudly (louder No 04/15/25 11:54 than talking or can be heard Do you often feel tired/ No 04/15/25 11:54 fatigued/ sleepy during daytime? Has anyone observed you stop No 04/15/25 11:54 breathing during sleep? STOP Results Negative 04/15/25 11:54 QUESTION #5 FULL TEXT : Do you snore loudly (louder than talking or can be heard through closed doors)? 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 Specify any problems Hx of Preganancy in last 3 No 04/15/25 11:54 Months Nurse Filling Out Transfusion VCHRISTIN 04/15/25 11:54 & Questions: Date: 04/15/25 04/15/25 11:54 Time: 11:55 04/15/25 11:54 Patient unable to answer at this time (ie. confused, unrespo /Reproduction History /Reproductive History - ladle repairman: /Reproductive Hx- ladle repairman Hx Now Gestational Age (in weeks): EDC: Hx Hx Para Hx Section SAB PFSH Medical History (Updated 04/15/25 @ 11:54 by Colleen Waller) Wears glasses History of hiatal hernia Leg cramps Wears contact lenses Post-menopausal Kidney stones High cholesterol Injury of head and neck Dietary restriction Gastric reflux Non-smoker Shortness of breath on exertion Chronic cough History of echocardiogram Normal stress echocardiogram History of stress test Cardiology follow-up encounter History of irregular heartbeat Hx of neck injury Kidney stone Spinal fracture COVID-19 (05/09/21) Chronic cough Meningioma Folliculitis Osteoporosis Dysphagia Kyphoscoliosis and scoliosis Asthma History of kidney stones Hyperlipidemia Palpitations Restrictive airway disease Bronchospasm Home Medications ?Medication ?Instructions ?Recorded ?Last Taken ?Type nebivolol 5 mg tablet (Bystolic) 5 mg PO DAILY 1 Unknown History cholecalciferol (vitamin D3) 100 2,000 unit PO DAILY 0 11/08/22 Unknown History mcg (4,000 unit) capsule potassium chloride 10 mEq 20 meq PO DAILY 11/08/22 Unk nown History capsule,extended release gabapentin 100 mg capsule 100 mg PO BID 05/28/23 Unkno wn History albuterol sulfate 90 mcg/actuation 1 inh inhalation Q6 H 10/08/23 Unknown History aerosol inhaler (ProAir HFA) ascorbic acid (vitamin C) 1,000 mg 1 g PO QDAY 5 Unknown History tablet atorvastatin 20 mg tablet 20 mg PO QDAY 10/12/24 Unkno wn History budesonide 160 mcg-glycopyr 9 2 inh inhalation BID #3 ea 10/12/24 Unknown Rx mcg-formot 4.8 mcg/actuation HFA inhaler (Breztri Aerosphere) coenzyme Q10 100 mg capsule (Co 100 mg PO QDAY 5 Unknown History Q-10) cyanocobalamin (vitamin B-12) 1,000 mcg PO QDAY Unknown History 1,000 mcg tablet folic acid 400 mcg tablet 0.4 mg PO QDAY 10/12/24 Unkn own History lactobacillus combination no.4 3 3,000 mmu cells PO QD AY 10/12/24 Unknown History billion cell capsule (Probiotic) losartan 25 mg tablet 25 mg PO QDAY 10/12/24 Unkno wn History magnesium oxide 800 mg PO DAILY 10/12/24 Unk nown History natures balance See Rx Instructions PO TID 0 10/12/24 Unknown History turmeric 400 mg capsule 400 mg PO QDAY 10/12/24 Unkn own History vitamin K2 100 mcg capsule 100 mcg PO QDAY 10/12/24 Un known History omeprazole 40 mg capsule,delayed 40 mg PO BID 12/11/24 04/14/25 History release cephalexin 250 mg capsule 250 mg PO QHS 04/15/25 Unkno wn History indapamide 2.5 mg tablet 1.25 mg PO DAILY 04/15/25 Un known History Allergy/AdvReac Type Severity Reaction Status Date / Time Tetracyclines Allergy 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 Verified 04/15/25 11:34 gluten AdvReac Other Verified 04/15/25 11:34 metoprolol AdvReac bronchospas Verified 04/15/25 11:34 m/cough/dys pnea minocycline HCl (From AdvReac Other Verified 04/15/25 11:34 Minocin) depth perception Skin Cleanser Combination AdvReac Other Verified 04/15/25 11:34 No.4 (From Minocin) Sulfa (Sulfonamide AdvReac Other Verified 04/15/25 11:34 Antibiotics) Family History Father , Age 81 Prostate cancer Mother Ulcerative colitis Grandmother Cancer Sister Glaucoma Sister Osteoporosis Brother Intracranial bleed Daughter Cancer breast Surgical History (Updated 04/15/25 @ 11:54 by Colleen Waller) Hx of bilateral cataract extraction Hx of colonoscopy History of cataract surgery History of lithotripsy History of appendectomy History of breast biopsy History of total abdominal hysterectomy Social History Smoking Status: Never smoker alcohol intake: never substance use type: does not use caffeine: No Audit: Pertinent Findings Pertinent Findings Stress test pertinent findings: February 12, 2024. EF of 75%. No areas of reversibility are noted to suggest ischemia. No previous infarct. Echo (EF%) pertinent findings: February 12, 2024. EF of 60%. PASP is 24 mmHg. No aortic stenosis noted. Consult pertinent findings: 12/15/2021. 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 Palpitations-patient denies palpitations. Continue with Nebivolol therapy. Most recent stress echo in 2020 was negative for ischemia. Last EF of 55% in 2019. Recommendation Anesthesia Recommendation Anesthesia recommendation: OPTIMIZED for anesthesia
[2025-04-16] VITALS (8 sets, daily range): BP systolic 82–131; BP diastolic 56–91; PULSE 55–90; RESP 16–18; TEMP 36.2–36.6; O2SAT 92–97; BMI 27.5
--- NOTE | 2025-04-16 09:00 | PCM.HP.STD ---
HPI - General General Date of Admission: 04/16/25 Date of Service: 04/16/25 Chief Complaint: GERD HPI Narrative JS MEEKS, is a 79 F who presents to the office today for establishment with [facility] for a pH monitoring test. She has a persistent cough and some difficulty swallowing pills, but not foods. She is concerned that this difficulty will progress to the point where I'll have to change the consistency of my foods for safety. She reports that Dr. Osborn has told her she needs a pH probe study done by inserting an NG tube and wearing it for 24hrs to record every time the feeling of heartburn occurs or she coughs, and that he can't do it. She also states that has ordered a barium swallow test. Her last EGD wasn't that long ago and was told there was a small hiatal hernia. She is unsure of whether or not she will transfer of all her GI care to [facility]. She reports daily heartburn in AM upon waking, but denies waking with a sour taste in her mouth or reflux. She states that she sleeps with her head elevated on multiple pillows. Her PCP wants her to take omeprazole twice daily, but she can only bring herself to take it daily due to her severe bone loss that causes her to be over 5 inches shorter. She wants to know why the symptoms are there, not just treat them. She states that she has adjusted her diet tremendously, avoids red sauces and soups close to bedtime, and really limits the amount of breads and sugars she eats. She states that with a lot of bread ingestion she will get a tight bloated abdomen. She denies concerns about her BMs, hematochezia, and melena. [facility] Medical History Wears glasses History of hiatal hernia Leg cramps Wears contact lenses Post-menopausal Kidney stones High cholesterol Injury of head and neck Dietary restriction Gastric reflux Non-smoker Shortness of breath on exertion Chronic cough History of echocardiogram Normal stress echocardiogram History of stress test Cardiology follow-up encounter History of irregular heartbeat Hx of neck injury Kidney stone Spinal fracture COVID-19 (05/09/21) Chronic cough Meningioma Folliculitis Osteoporosis Dysphagia Kyphoscoliosis and scoliosis Asthma History of kidney stones Hyperlipidemia Palpitations Restrictive airway disease Bronchospasm Home Medications ?Medication ?Instructions ?Recorded ?Last Taken ?Type nebivolol 5 mg tablet (Bystolic) 5 mg PO DAILY 11/17/20 04/16/25 History cholecalciferol (vitamin D3) 100 2,000 unit PO DAILY 11/08/22 Unknown History mcg (4,000 unit) capsule potassium chloride 10 mEq 20 meq PO DAILY 11/08/22 Unknown History capsule,extended release gabapentin 100 mg capsule 100 mg PO BID 05/28/23 Unknown History albuterol sulfate 90 mcg/actuation 1 inh inhalation Q6H 10/08/23 Unknown History aerosol inhaler (ProAir HFA) ascorbic acid (vitamin C) 1,000 mg 1 g PO QDAY 10/12/24 Unknown History tablet atorvastatin 20 mg tablet 20 mg PO QDAY 10/12/24 Unknown History budesonide 160 mcg-glycopyr 9 2 inh inhalation BID #3 ea 10/12/24 04/16/25 Rx mcg-formot 4.8 mcg/actuation HFA inhaler (Breztri Aerosphere) coenzyme Q10 100 mg capsule (Co 100 mg PO QDAY 10/12/24 Unknown History Q-10) cyanocobalamin (vitamin B-12) 1,000 mcg PO QDAY 10/12/24 Unknown History 1,000 mcg tablet folic acid 400 mcg tablet 0.4 mg PO QDAY 10/12/24 Unknown History lactobacillus combination no.4 3 3,000 mmu cells PO QDAY 10/12/24 Unknown History billion cell capsule (Probiotic) losartan 25 mg tablet 25 mg PO QDAY 10/12/24 04/16/25 History magnesium oxide 800 mg PO DAILY 10/12/24 Unknown History natures balance See Rx Instructions PO TID 10/12/24 Unknown History turmeric 400 mg capsule 400 mg PO QDAY 10/12/24 Unknown History vitamin K2 100 mcg capsule 100 mcg PO QDAY 10/12/24 Unknown History omeprazole 40 mg capsule,delayed 40 mg PO BID 12/11/24 04/14/25 History release cephalexin 250 mg capsule 250 mg PO QHS 04/15/25 Unknown History indapamide 2.5 mg tablet 1.25 mg PO DAILY 04/15/25 Unknown History Allergy/AdvReac Type Severity Reaction Status Date / Time Tetracyclines Allergy 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 Verified 04/16/25 08:56 gluten AdvReac Other Verified 04/16/25 08:56 metoprolol AdvReac bronchospas Verified 04/16/25 08:56 m/cough/dys pnea minocycline HCl (From AdvReac Other Verified 04/16/25 08:56 Minocin) depth perception Skin Cleanser Combination AdvReac Other Verified 04/16/25 08:56 No.4 (From Minocin) Sulfa (Sulfonamide AdvReac Other Verified 04/16/25 08:56 Antibiotics) Family History Father , Age 81 Prostate cancer Mother Ulcerative colitis Grandmother Cancer Sister Glaucoma Sister Osteoporosis Brother Intracranial bleed Daughter Cancer breast Surgical History Hx of bilateral cataract extraction Hx of colonoscopy History of cataract surgery History of lithotripsy History of appendectomy History of breast biopsy History of total abdominal hysterectomy Social History Smoking Status: Never smoker alcohol intake: never substance use type: does not use caffeine: No ROS Constitutional Constitutional: Denies fatigue, fever(s), poor appetite, weight gain or weight loss Gastrointestinal Gastrointestinal: Denies belching, bloating, change in bowel habits, change in stool character, chewing difficulty, coffee ground emesis, constipation, cramping, diarrhea, dyspepsia, dysphagia, early satiety, excessive flatus, fecal incontinence, heartburn, hematemesis, hematochezia, hemorrhoids, loose stools, melena, nausea, odynophagia, rectal bleeding, tenesmus, vomiting or weight changes Physical Exam Const alert, oriented x3, no apparent distress and healthy appearing General Appearance: cooperative GI normal to inspection, nondistended, normoactive bowel sounds, soft to palpation, non-tender and non-distended Percussion: normal to percussion Rectal Exam: deferred Assessment & Plan Assessment/Plan (1) Hiatal hernia: (2) Laryngeal spasm: (3) GERD (gastroesophageal reflux disease): QUALIFIERS: Esophagitis presence: esophagitis presence not specified Qualified Code(s): K21.9 - Gastro-esophageal reflux disease without esophagitis PLAN: Assessment and Plan Assessment and Plan (1) GERD (gastroesophageal reflux disease): Status: Acute Qualifiers: Esophagitis presence: esophagitis presence not specified Qualified Code(s): K21.9 - Gastro-esophageal reflux disease without esophagitis (2) Hiatal hernia: Status: Chronic Plan JS MEEKS, is a 79 F who presents to the office today for establishment with [facility] for a pH monitoring test. She has a persistent cough and some difficulty swallowing pills, but not foods. She is concerned that this difficulty will progress to the point where I'll have to change the consistency of my foods for safety. She reports that Dr. Osborn has told her she needs a pH probe study done by inserting an NG tube and wearing it for 24hrs to record every time the feeling of heartburn occurs or she coughs, and that he can't do it. Discussed with her EGD with [facility] study for pH monitoring, describing procedure. continue omeprazole 40mg PO QAM on empty stomach add famotidine 40mg PO QHS, she wishes to use OTC schedule EGD w/[facility] placement office FU w/results
[2025-04-16] MEDS: Lactated Ringers 1,000 ML 15 ML IV (09:24)
--- NOTE | 2025-04-16 09:35 | PCM.PRE.AN2 ---
ASA Classification* ASA Classification ASA Classification: 3 Assessment & Plan Anesthesia* Anesthesia Assessment Anesthesia Assessment: Discussed sedation and/or anesthesia options, risks, benefits, and alternatives with patient/parents/legal guardian/POA. Questions invited. The patient/parents/legal guardian/POA seems to understand and agrees to proceed with anesthesia plan. Reviewed the physical assessment, medical history, allergy history and patient home medications list prior to surgery/procedure/anesthetic and documented any changes. Performed airway and anesthesia risk assessments. Anesthesia Type Anesthesia Type: MAC History Source History Obtained from:: Patient and Chart Anesthesia Focused Assessment* Temperature: 97.3 F Pulse Rate: 65 Blood Pressure: 131/56 Respiratory Rate: 18 Pulse Ox: 94 Oxygen Delivery Method: Room Air Airway Assessment Mouth opens: >3 cm Mallampati Score: II Teeth Condition: Caps/Crowns (Patient has several crowns. They are all tight.) Neck Range of motion (ROM): Limited ROM (Somewhat Decreased) Labs Anesthesia Preop lab: CBC WBC 5.9 K/mm3 (4.4-11.0) 08/15/24 09:07 08/15/24 RBC 4.40 M/mm3 (4.2-5.4) 08/15/24 09:07 08/15/24 Hgb 13.9 g/dL (12.0-15.0) 08/15/24 09:07 08/15/24 Hct 41.3 % (37-47) 08/15/24 09:07 08/15/24 Plt Count 259 K/mm3 (150-450) 08/15/24 09:07 08/15/24 CHEMISTRY Potassium 3.8 mmol/L (3.3-5.1) 02/09/25 16:02/09/25 Sodium 140 mmol/L (133-145) 02/09/25 16:02/09/25 Magnesium 2.1 mg/dL (1.5-2.2) 10/12/24 08:07 10/12/24 BUN 19 mg/dL (4-19) 02/09/25 16:02/09/25 Creatinine 0.63 mg/dL (0.70-1.20) L 02/09/25 16:02/09/25 Glucose 89 mg/dL (70-99) 02/09/25 16:01 02/09/25 POC Glucose 100 mg/dL (70-110) 03/02/13 10:12 03/02/13 TSH 0.453 uIU/mL (0.300-4.200) 02/23/25 11:03 02/23/25 COAG Pre-Assessment Diagnosis/Proposed Procedure Planned Operative Procedure(s): EGD - PH Probe Anesthesia History 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 When Was Last Pacemaker Check QUESTION #4 FULL TEXT: You/Your Family Experience fever (hyperthermia) with Anesthesia Last Oral Intake Last Oral intake: Last Oral Intake NPO since 06:30 04/16/25 09:17 Meds taken in AM with sips of Yes 04/16/25 09:17 water? Meds patient instructed to see medlist 04/16/25 09:17 take am of surgery Any additional information?: Yes Meds taken in AM with sips of water?: Yes PONV PONV - financial systems administrator: PONV - financial systems administrator Female Yes 04/15/25 11:54 HX of Motion Sickness No 04/15/25 11:54 HX of N/V After Surgery No 04/15/25 11:54 Non-Smoker Yes 04/15/25 11:54 Duration of Surgery greater No 04/15/25 11:54 than 60 minutes Number of Risk Factors 2 04/15/25 11:54 PONV Score Moderate Risk 04/15/25 11:54 Height & Weight Height & Weight: Anesthesia: Height & Weight Height 5 ft 04/16/25 09:17 Weight: 64 kg 04/16/25 09:17 Body Mass Index (BMI) 27.5 04/16/25 09:17 Respiratory Assessment Respiratory Assessment - financial systems administrator: Respiratory Tract Infection Hx - financial systems administrator Hx Respiratory Tract Infection No 04/15/25 11:54 STOP Sleep Apnea STOP Sleep Apnea - financial systems administrator: STOP Sleep Apnea - financial systems administrator Hx Hypertension No 04/15/25 11:54 Hx Sleep Apnea No 04/15/25 11:54 CPAP No 04/15/25 11:54 BIPAP No 04/15/25 11:54 Do you snore loudly (louder No 04/15/25 11:54 than talking or can be heard Do you often feel tired/ No 04/15/25 11:54 fatigued/ sleepy during daytime? Has anyone observed you stop No 04/15/25 11:54 breathing during sleep? STOP Results Negative 04/15/25 11:54 QUESTION #5 FULL TEXT : Do you snore loudly (louder than talking or can be heard through closed doors)? 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 Specify any problems Hx of Preganancy in last 3 No 04/15/25 11:54 Months Nurse Filling Out Transfusion VCHRISTIN 04/15/25 11:54 & Questions: Date: 04/15/25 04/15/25 11:54 Time: 11:55 04/15/25 11:54 Patient unable to answer at this time (ie. confused, unrespo /Reproduction History /Reproductive History - financial systems administrator: /Reproductive Hx- financial systems administrator Hx Now Gestational Age (in weeks): EDC: Hx Hx Para Hx Section SAB Active Medications Active Medications: Current Medications Generic Name Dose Route Start Last Admin Trade Name Freq PRN Reason Stop Dose Admin Lactated Ringer's 1,000 mls @ 15 mls/hr 04/16/25 09:00 04/16/25 09:24 IV 15 mls/hr .Q48H TC Administration PFSH Medical History Wears glasses History of hiatal hernia Leg cramps Wears contact lenses Post-menopausal Kidney stones High cholesterol Injury of head and neck Dietary restriction Gastric reflux Non-smoker Shortness of breath on exertion Chronic cough History of echocardiogram Normal stress echocardiogram History of stress test Cardiology follow-up encounter History of irregular heartbeat Hx of neck injury Kidney stone Spinal fracture COVID-19 (05/09/21) Chronic cough Meningioma Folliculitis Osteoporosis Dysphagia Kyphoscoliosis and scoliosis Asthma History of kidney stones Hyperlipidemia Palpitations Restrictive airway disease Bronchospasm Home Medications ?Medication ?Instructions ?Recorded ?Last Taken ?Type nebivolol 5 mg tablet (Bystolic) 5 mg PO DAILY 11/17/20 04/16/25 History cholecalciferol (vitamin D3) 100 2,000 unit PO DAILY 11/08/22 Unknown History mcg (4,000 unit) capsule potassium chloride 10 mEq 20 meq PO DAILY 11/08/22 Unknown History capsule,extended release gabapentin 100 mg capsule 100 mg PO BID 05/28/23 Unknown History albuterol sulfate 90 mcg/actuation 1 inh inhalation Q6H 10/08/23 Unknown History aerosol inhaler (ProAir HFA) ascorbic acid (vitamin C) 1,000 mg 1 g PO QDAY 10/12/24 Unknown History tablet atorvastatin 20 mg tablet 20 mg PO QDAY 10/12/24 Unknown History budesonide 160 mcg-glycopyr 9 2 inh inhalation BID #3 ea 10/12/24 04/16/25 Rx mcg-formot 4.8 mcg/actuation HFA inhaler (Breztri Aerosphere) coenzyme Q10 100 mg capsule (Co 100 mg PO QDAY 10/12/24 Unknown History Q-10) cyanocobalamin (vitamin B-12) 1,000 mcg PO QDAY 10/12/24 Unknown History 1,000 mcg tablet folic acid 400 mcg tablet 0.4 mg PO QDAY 10/12/24 Unknown History lactobacillus combination no.4 3 3,000 mmu cells PO QDAY 10/12/24 Unknown History billion cell capsule (Probiotic) losartan 25 mg tablet 25 mg PO QDAY 10/12/24 04/16/25 History magnesium oxide 800 mg PO DAILY 10/12/24 Unknown History natures balance See Rx Instructions PO TID 10/12/24 Unknown History turmeric 400 mg capsule 400 mg PO QDAY 10/12/24 Unknown History vitamin K2 100 mcg capsule 100 mcg PO QDAY 10/12/24 Unknown History omeprazole 40 mg capsule,delayed 40 mg PO BID 12/11/24 04/14/25 History release cephalexin 250 mg capsule 250 mg PO QHS 04/15/25 Unknown History indapamide 2.5 mg tablet 1.25 mg PO DAILY 04/15/25 Unknown History Allergy/AdvReac Type Severity Reaction Status Date / Time Tetracyclines Allergy Severe 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 Verified 04/16/25 08:56 gluten AdvReac Other Verified 04/16/25 08:56 metoprolol AdvReac bronchospas Verified 04/16/25 08:56 m/cough/dys pnea minocycline HCl (From AdvReac Other Verified 04/16/25 08:56 Minocin) depth perception Skin Cleanser Combination AdvReac Other Verified 04/16/25 08:56 No.4 (From Minocin) Sulfa (Sulfonamide AdvReac Other Verified 04/16/25 08:56 Antibiotics) Family History Father , Age 81 Prostate cancer Mother Ulcerative colitis Grandmother Cancer Sister Glaucoma Sister Osteoporosis Brother Intracranial bleed Daughter Cancer breast Surgical History Hx of bilateral cataract extraction Hx of colonoscopy History of cataract surgery History of lithotripsy History of appendectomy History of breast biopsy History of total abdominal hysterectomy Social History Smoking Status: Never smoker alcohol intake: never substance use type: does not use caffeine: No Review of Systems (Anesthesia) ROS Narrative System reviewed and no additional complaints, except as documented. Physical Exam Resp Auscultation: wheezes expiratory wheezes (Patient has slight expiratory wheeze. Will give her a DuoNeb breathing treatment.)
--- NOTE | 2025-04-16 09:45 | EGD_PTH ---
PATIENT: JS MEEKS LOC: EN U#:[id number] AGE/SX: 79/F ROOM: RE04/16/[address]: Dr. Eduard Eid DO : 1945 BED: DIS: 04/16/2025 SPEC #: [id number] RECD: 04/16/25 10:44 STATUS: MILAN REBob #: [id number] YESENIA: 04/16/25 09:[address]: Eduard Eid DEPT: SURGICAL PATHOLOGY RECD BY: Stiven Osullivan ENTERED: 04/16/25 15:16 SP TYPE: EGD BIOPSY OT DR: Dr. Audrey Austin DO Tissues: A - Esophagus, NOS Procedures: Surgery Specimen Level IV HEADER OPERATION: EGD, PH probe placement, biopsy PRE-OP DIAGNOSIS: Hiatal hernia, laryngeal spasm, GERD TISSUE SUBMITTED: A- Distal esophagus biopsy MICROSCOPIC DIAGNOSIS A. Distal esophagus, biopsy: - Benign squamous mucosa. - Columnar mucosa negative for goblet cell metaplasia. MICROSCOPIC DESCRIPTION Slides are reviewed. GROSS DESCRIPTION A. Received in fixative is one container labeled with the patient's name and designated Distal esophagus biopsy. The specimen consists of three irregular fragments of light cole soft tissue that measure 0.2 to 0.4 cm. The specimen is totally submitted in one cassette. MT 04/16/2025 CPT:06901
--- NOTE | 2025-04-16 10:33 | OP.PROVAT_ITS ---
04/16/2025 Audrey Austin Re : Upper GI endoscopy procedure for Rosa Austin This procedure was performed on Wednesday, April 16, 2025. My impressions and recommendations are as follows: Impressions : - Moderate Schatzki ring. Biopsied. - Tortuous esophagus. - Large hiatal hernia. - Normal examined duodenum. - The JAMES pH capsule was positioned 36 cm from the incisors, which was 6 cm proximal to the GE junction. Recommendations : - Discharge patient to home. - Resume previous diet. - Continue present medications. - Await pathology results. My findings are described in the full procedure note, which is enclosed. If I can be of further assistance, please feel free to contact me at . Sincerely, Eduard Friend, 04/16/2025 10:32:52 AM This report has been signed electronically.
--- NOTE | 2025-04-16 10:33 | OP.EGD_ITS ---
Patient Name: Rosa Lucio Procedure Date: 04/16/2025 9:46 AM Date of : 1945 Age: 79 Procedure: Upper GI endoscopy Indications: Suspected esophageal reflux Providers: Eduard iEd DO Referring MD: Audrey Austin Medicines: Monitored Anesthesia Care Patient Profile: This is a 79 year old female. Refer to note in patient chart for documentation of history and physical. Patient has symptoms of acute cough. Complications: No immediate complications. Procedure: Pre-Anesthesia Assessment: - Prior to the procedure, a History and Physical was performed, and patient medications and allergies were reviewed. The patient is competent. The risks and benefits of the procedure and the sedation options and risks were discussed with the patient. All questions were answered and informed consent was obtained. Patient identification and proposed procedure were verified by the physician in the pre-procedure area. Mental Status Examination: alert and oriented. Airway Examination: normal oropharyngeal airway and neck mobility. Respiratory Examination: clear to auscultation. CV Examination: normal. Prophylactic Antibiotics: The patient does not require prophylactic antibiotics. Prior Anticoagulants: The patient has taken no anticoagulant or antiplatelet agents. ASA Grade Assessment: II - A patient with mild systemic disease. After reviewing the risks and benefits, the patient was deemed in satisfactory condition to undergo the procedure. The anesthesia plan was to use monitored anesthesia care (MAC). Immediately prior to administration of medications, the patient was re-assessed for adequacy to receive sedatives. The heart rate, respiratory rate, oxygen saturations, blood pressure, adequacy of pulmonary ventilation, and response to care were monitored throughout the procedure. The physical status of the patient was re-assessed after the procedure. After obtaining informed consent, the endoscope was passed under direct vision. Throughout the procedure, the patient's blood pressure, pulse, and oxygen saturations were monitored continuously. The gastroscope was introduced through the mouth, and advanced to the second part of duodenum. The upper GI endoscopy was accomplished without difficulty. The patient tolerated the procedure well. Scope In: 10:17:23 AM Scope Out: 10:24:08 AM Total Procedure Duration Time 0 hours 6 minutes 45 seconds Findings: A moderate Schatzki ring was found in the lower third of the esophagus and at the gastroesophageal junction. Biopsies were taken with a cold forceps for histology. Verification of patient identification for the specimen was done. Estimated blood loss was minimal. The examined esophagus was moderately tortuous. The JAMES capsule with delivery system was introduced through the mouth and advanced into the esophagus, such that the JAMES pH capsule was positioned 36 cm from the incisors, which was 6 cm proximal to the GE junction. Suction was applied to the well of the JAMES pH capsule to suck in the adjacent mucosa of the esophagus using the external vacuum pump set at a minimum vacuum pressure of 550 mmHg for 30 seconds. The JAMES pH capsule was then deployed by depressing the plunger on top of the handle to advance the locking pin into the mucosa, thereby attaching the capsule to the esophagus. The plunger was then rotated a quarter turn clockwise to release the capsule from the delivery system. The delivery system was then withdrawn. Endoscopy was utilized for probe placement and diagnostic evaluation. A large hiatal hernia was present. The examined duodenum was normal. Impression: - Moderate Schatzki ring. Biopsied. - Tortuous esophagus. - Large hiatal hernia. - Normal examined duodenum. - The JAMES pH capsule was positioned 36 cm from the incisors, which was 6 cm proximal to the GE junction. Recommendation: - Discharge patient to home. - Resume previous diet. - Continue present medications. - Await pathology results. Procedure Code(s): --- Professional --- 73766, Esophagogastroduodenoscopy, flexible, transoral; with biopsy, single or multiple CPT copyright 2021 [employer]. All rights reserved. The codes documented in this report are preliminary and upon medical biller coder review may be revised to meet current compliance requirements. Eduard Eid DO 04/16/2025 10:32:52 AM This report has been signed electronically. Number of Addenda: 0 Note Initiated On: 04/16/2025 9:46 AM
--- NOTE | 2025-04-16 10:39 | PCM.POST.ANE ---
Anesthesia: Postop Eval I Current Vital Signs Temperature: 97.3 F Pulse Rate: 72 Blood Pressure: 87/72 Respiratory Rate: 16 Pulse Ox: 97 Oxygen Delivery Method: Room Air Assessment Airway patent: Yes Spontaneous unlabored respirations: Yes Mental status: Awake and Calm nausea: No Vomiting: No Anesthesia Complication: Yes Anesthesia Complication Comment:: profuse coughing and temp. O2 desat Fluid Hydration Crystalloid volume administer (ml): 300 Total IV fluid infused: 300 Progress Note Anesthesia document: Postop Eval 1 completed: Yes
--- NOTE | 2025-04-16 11:18 | SUR.PHASEII ---
reviewed ph probe teaching
--- NOTE | 2025-04-16 14:25 | PCM.POSTANE2 ---
Anesthesia Postop Eval I Sum Postop Eval Completion status Anesthesia document: Postop Eval 1 completed: Yes Anesthesia Postop Eval I Summary Anesthesia Postop Eval I Summary: Anesthesia Postop Eval I: Assessment Summary Airway patent Yes 04/16/25 10:40 [email or web address] Spontaneous unlabored Yes 04/16/25 10:40 [email or web address] respirations Mental status Awake,Calm 04/16/25 10:40 [email or web address] nausea No 04/16/25 10:40 [email or web address] Vomiting No 04/16/25 10:40 [email or web address] Anesthesia Postop Eval I: Fluid Summary Crystalloid volume administer 300 04/16/25 10:40 [email or web address] (ml) Colloids volume administered ( ml) Blood Product volume administered (ml) Total IV fluid infused 300 04/16/25 10:40 [email or web address] Anesthesia Postop Eval I: Summary Notes Anesthesia Complication Yes 04/16/25 10:40 [email or web address] Anesthesia Complication profuse coughing 04/16/25 10:40 [email or web address] Comment: and temp. O2 desat Post-operative progress note Anesthesia: Postop Eval II Evaluation Mental status: Awake and Calm Pain Level: 0 nausea: No Vomiting: No Progress Note Post-operative progress note: DUO NEB breathing treatment given Complications Anesthesia Complication: No
== END 2025-04-16 11:19 | disposition home or self-care (01) ==
LOC: EN 08:38 → AC 08:40
PROVIDERS: PCP Internal Medicine; Referring Provider Internal Medicine; Visit Provider Internal Medicine Gastroenterology
PROC: (CPT 43235; principal; 2025-04-16 09:40)
DX: K22.2 Esophageal obstruction (principal); K44.9 Diaphragmatic hernia without obstruction or gangrene; K21.9 Gastro-esophageal reflux disease without esophagitis; J38.5 Laryngeal spasm; E78.00 Pure hypercholesterolemia, unspecified; J45.909 Unspecified asthma, uncomplicated; Z79.899 Other long term (current) drug therapy
CPT/HCPCS: 43239; 88305; 94640; J2405

== ENCOUNTER → 2025-04-20 | Outpatient (CLI) | payer MEDICARE, SELFPAY ==
[2025-04-20 11:34] LABS: PTHIN 69 pg/mL (11-61)
[2025-04-20 12:44] LABS: AST(SGOT) 18 U/L (<=31); Alanine Aminotransfer ALT/SGPT 19 U/L (<=34); Albumin, Serum 4.2 g/dL (3.4-4.8); Alkaline Phosphatase 50 U/L (35-104); Anion Gap 10 (5-15); BUN 16 mg/dL (4-19); BUN/Creat Ratio 23.7 RATIO (10-20); Calcium,Total 9.9 mg/dL (7.6-11.0); Carbon Dioxide 26.6 mmol/L (21.0-32.0); Chloride 104 mmol/L (98-108); Globulin 2.4 g/dL (2.2-4.2); Glucose 103 mg/dL (70-99); Magnesium 2.4 mg/dL (1.5-2.2); Potassium 4.2 mmol/L (3.3-5.1)
[2025-04-20 13:00] LABS: Vitamin D,25 Hydroxy 53.3 ng/mL (30-100)
== END | disposition home or self-care (01) ==
LOC: LAB 10:25
PROVIDERS: PCP Internal Medicine; Referring Provider Physician Assistant; Visit Provider Physician Assistant
DX: M81.0 Age-related osteoporosis without current pathological fracture (principal); E55.9 Vitamin D deficiency, unspecified; E83.42 Hypomagnesemia
CPT/HCPCS: 36415; 80053; 82306; 83735; 83970

== ENCOUNTER → 2025-08-09 | Outpatient (CLI) | payer MEDICARE, SELFPAY ==
[2025-08-09 11:33] LABS: Color, Urine Yellow (Yellow); Glucose, Dipstick Normal (Normal); Ketone-Dipstick Negative (Negative); Leukocyte Esterase-Dipstick 25 /ul (Negative); Nitrite-Dipstick Negative (Negative); Occult Blood-Urine 10 /ul (Negative); Protein-Dipstick 30 mg/dl (Negative); Specific Gravity, Urine 1.020 (1.002-1.030); Urine Bilirubin Dipstick Negative (Negative)
[2025-08-09 11:55] LABS: Mucous, Urine 1+ /hpf (<or=2+); PTHIN 52 pg/mL (11-61); Red Blood Cells-Urine 0-5 SEEN /hpf (0-5); Squamous Epithelial Cells - UA 0-5 SEEN /hpf (5-10)
[2025-08-09 11:58] LABS: AST(SGOT) 24 U/L (<=31); Alanine Aminotransfer ALT/SGPT 19 U/L (<=34); Albumin, Serum 4.3 g/dL (3.4-4.8); Alkaline Phosphatase 52 U/L (35-104); Anion Gap 9 (7-18); BUN 18 mg/dL (4-19); BUN/Creat Ratio 25.1 RATIO (10-20); Calcium,Total 10.2 mg/dL (7.6-11.0); Carbon Dioxide 31.2 mmol/L (20.0-29.0); Chloride 100 mmol/L (96-106); Globulin 2.5 g/dL (2.2-4.2); Glucose 117 mg/dL (70-99); Potassium 3.5 mmol/L (3.5-5.1)
== END | disposition home or self-care (01) ==
LOC: LAB 10:59
PROVIDERS: PCP Internal Medicine; Referring Provider Internal Medicine Endocrinology, Diabetes & Metabolism; Visit Provider Internal Medicine Endocrinology, Diabetes & Metabolism
DX: M81.0 Age-related osteoporosis without current pathological fracture (principal); E21.1 Secondary hyperparathyroidism, not elsewhere classified
CPT/HCPCS: 36415; 80053; 81001; 83970